=== PATIENT | female | born 1950 | race Caucasian/White ===

== ENCOUNTER 2019-07-14 12:50 | Outpatient (CLI) | payer MEDICARE, SELFPAY ==
--- NOTE | ~2019-07-14 | US_ITS ---
EXAMINATION: US renal BI EXAM DATE: 07/14/2019 13:33 INDICATION: Stage V chronic renal disease. TECHNIQUE: Multiple grayscale and Doppler images of the kidneys were obtained (by a technologist who performed the scan) and subsequently reviewed. Comparison is made to prior examination from 03/20/2016. FINDINGS: There is significant bilateral renal cortical thinning. Right kidney: There is normal contour and echogenicity. It measures 10.6 x 4.5 x 3.9 centimeters. T here are no focal renal lesions identified. There is no hydronephrosis. Left kidney: There is normal contour and echogenicity. It measures 10.7 x 4.8 x 4.3 centimeters. The re is a 9 mm cyst. There is no hydronephrosis. Bladder unremarkable. IMPRESSION: 1. Bilateral renal cortical thinning, atrophy. Reviewed, dictated and finalized at location A.
== END 2019-07-14 12:51 | disposition home or self-care (01) ==
LOC: ANHIMG 12:58
PROVIDERS: PCP Family Medicine; Visit Provider Internal Medicine Nephrology
DX: N18.5 Chronic kidney disease, stage 5 (principal); N26.1 Atrophy of kidney (terminal)
CPT/HCPCS: 76775

== ENCOUNTER → 2020-09-22 17:33 | Outpatient (CLI) | payer MEDICARE, SELFPAY ==
--- NOTE | ~2020-09-22 | DEXA_ITS ---
Bone Density Report Name: Peg Son Age: 69 Sex: Female Ethnicity: White Date of : 1950 Indication: postmenopausal; screening for osteoporosis; parental hip fracture; height loss; hysterectomy; Referring Provider: Latisha Weaver Study: Bone densitometry was performed. Exam Date: September 22, 2020 Accession number: [id number] Bone Density: Region BMD T-score Z-score Classification AP Spine (L1, L2, L3) 1.114 0.9 3.0 Normal Femoral Neck (Left) 0.552 -2.7 -0.8 Osteoporosis Total Hip (Left) 0.984 0.3 1.9 Normal Femoral Neck (Right) 0.548 -2.7 -0.8 Osteoporosis Total Hip (Right) 0.890 -0.4 1.2 Normal Total Hip Mean 0.937 -0.1 1.6 Normal World Health Organization criteria for BMD impression classify patients as: Normal (T-score at or above -1.0), Osteopenia (T-score between -1.0 and -2.5), or Osteoporosis (T-score at or below -2.5). 10-year Fracture Risk: FRAX not reported because: Some T-score for Spine Total or Hip Total or Femoral Neck at or below -2.5 Previous Exams: Region Exam Age BMD T-score BMD Change BMD Change Date g/cm2 vs Baseline vs Previous AP Spine(L1, L2, L3) 09/22/2020 69 1.114 0.9 -0.055 -0.055 01/28/2007 56 1.169 1.4 Total Hip(Left) 09/22/2020 69 0.984 0.3 -0.065 -0.085 03/17/2010 59 1.069 1.0 0.020 0.020 01/28/2007 56 1.049 0.9 Total Hip(Right) 09/22/2020 69 0.890 -0.4 -0.106 -0.091 03/17/2010 59 0.981 0.3 -0.015 -0.015 01/28/2007 56 0.996 0.4 *Denotes significance at 95% confidence level, LSC for AP Spine = 0.022 g/cm2, LSC for Total Hip = 0.027 g/cm2 Clinical Information Provided by Patient: Parent has had a hip fracture Has used the following medications: Vitamin D, Calcium Has the following medical conditions: Hysterectomy, COPD Patient maximum height was 68 Menopause Age: 53 No regular weight bearing exercise Onset of menses at age 12 Number of children 2 Impression: The patient has osteoporosis, based on the Left Femoral Neck T-score. The patient has risk factors, including: parental hip fracture. No significant bone loss was observed. Discussion: INCREASED RISK OF FRACTURE. BONE DENSITY IS UNDESIRABLY LOW AT ONE OR MORE SKELETAL SITES, CONSISTENT WITH POSTMENOPAUSAL OSTEOPOROSIS. This patient's lowest T-score meets the World Health Organization's (WHO) criteria for osteoporosis at one or m
== END ==
PROVIDERS: PCP Family Medicine; Visit Provider Physician Assistant
DX: M81.0 Age-related osteoporosis without current pathological fracture (principal)
CPT/HCPCS: 77080

== ENCOUNTER 2024-03-02 16:27 | Inpatient (IN) | payer MEDICARE, SELFPAY ==
--- NOTE | ~2024-03-02 | CT_ITS ---
EXAMINATION: CT cervical spine wo con DATE: 03/03/2024 15:08 INDICATION: Neck pain. TECHNIQUE: Computed tomography (CT) of the cervical spine was performed without intravenous contrast. Automated exposure control and iterative reconstruction technique were employed. The dose-length pro duct was 483.46 mGy-cm. COMPARISON: CT cervical spine 04/13/16 FINDINGS: There is 11 degrees levoscoliosis of cervical spine. There are changes of anterior fusion p rocedure from C4 to C7 with healed interbody bone graft and anterior plate and screws. Vertebral body heights are normal. There is mildly decreased disc height at C3-C4 and C7-T1. The following disc lev els are specifically discussed: C2-C3: There is no uncovertebral joint osteoarthritis. There is severe bilateral facet joint osteoart hritis. There is mild left neural foraminal stenosis. There is no central canal stenosis. C3-C4: There is severe bilateral uncovertebral joint osteoarthritis. There is severe bilateral facet joint osteoarthritis. There is mild bilateral neural foraminal stenosis. There is mild central canal stenosis. C4-C5: There is mild left uncovertebral joint hypertrophy. There is ankylosis of the facet joints wit h mild hypertrophy. There is mild left neural foraminal stenosis. There is no central canal stenosis. C5-C6: There is mild bilateral uncovertebral joint hypertrophy. There is ankylosis of left facet join t without hypertrophy. There is mild left neural foraminal stenosis. There is no central canal stenos is. C6-C7: There is moderate bilateral uncovertebral joint hypertrophy. There is mild bilateral facet kiko nt osteoarthritis. There is mild bilateral neural foraminal stenosis. There is no central canal steno sis. C7-T1: There is mild bilateral uncovertebral joint osteoarthritis. There is severe bilateral facet andrea int osteoarthritis. There is mild bilateral neural foraminal stenosis. There is no central canal sten osis. IMPRESSION: 1. Stable mild cervical spondylosis. 2. Anterior fusion procedure from C4 to C7. Reviewed, dictated and finalized at location A. [employer] COMMUNICATIONS MANAGER
--- NOTE | ~2024-03-02 | XR_ITS ---
EXAMINATION: XR chest 1V portable Exam Date/Time: 03/02/2024 17:32 DATA TECHNICIAN HISTORY: chest pain, shortness of breath Comparison: None. RESULT: Lines, tubes, and devices: ACDF hardware. Lungs and pleura: Mild diffuse reticular opacities. Streaky bibasilar opacities likely representing atelectasis. Cardiomediastinal silhouette: Stable. Other: No acute osseous or upper abdominal finding. IMPRESSION: Mild interstitial edema versus senescent/interstitial change. Reviewed, dictated and finalized at location K. TECHNICIAN
--- NOTE | ~2024-03-02 | CT_ITS ---
EXAMINATION: CT brain wo con DATE: 03/03/2024 15:08 INDICATION: Severe headache TECHNIQUE: Computed tomography (CT) of the head was performed without intravenous contrast. Sagittal and coronal reconstructions were performed. The mA was adjusted according to patient size. Iterative reconstruction technique was employed. The dose-length product was 605.33 mGy-cm. COMPARISON: head CT dated 04/13/2016 FINDINGS: No acute intracranial hemorrhage, acute infarction or abnormal extra axial fluid collection. There is mild scattered white matter hypoattenuation consistent with chronic small vessel ischemic disease. S ymmetric prominence of the sulci consistent with mild age-appropriate diffuse cerebral volume loss. Ventricles are normal and symmetric. No mass/mass effect. Changes of bilateral intraocular lens repla cement. The orbits, paranasal sinuses and mastoid air cells are normal. IMPRESSION: 1. Normal aging brain. No acute intracranial process. Reviewed, dictated and finalized at location A. RAFT ELECTRONICS TECHNICAL OFFICER
[2024-03-02 16:41] VITALS: BP 127/59; PULSE 76; RESP 19; O2SAT 94
[2024-03-02 17:02] VITALS: O2SAT 94
--- NOTE | 2024-03-02 17:08 | ECG_ITS ---
Test Date: 2024-03-02 18:21:11 Measurements Intervals Crosby Rate: 75 P: 80 NE: 201 QRS: -46 QRSD: 107 T: 29 QT: 333 QTc: 372 Interpretive Statements SINUS RHYTHM PATTERN CONSISTENT WITH PULMONARY DISEASE Poor R wave progression LEFT ANTERIOR FASCICULAR BLOCK [QRS AXIS <= -45, QR IN I, RS IN II] MODERATE VOLTAGE CRITERIA FOR LVH, CONSIDER NORMAL VARIANT [MEETS CRITERIA IN ONE OF: R(aVL), S(V1), R(V5), R(V5/V6)+S(V1)] No previous ECG available for comparison Electronically Signed On 03-02-2024 21:59:09 AIRLINE RADIO OPERATOR by Ed Peña M.D.
[2024-03-02 17:16] VITALS: BP 139/67; PULSE 76; RESP 21; O2SAT 94
--- NOTE | 2024-03-02 17:20 | ED.GENADULT ---
HPI - General Adult General Chief complaint: Chest Pain Stated complaint: SOB, CP Time Seen by Provider: 03/02/24 16:51 History of Present Illness HPI narrative: patient is a 73-year-old female who presents emergency department chief complaint of generalized malaise. Patient reports having chest pain reports he has had a cough and starts been feeling he is well patient today was unable to get up off the toilet and the family called EMS. The patient had a home COVID test that was positive Related Data Home Medications ?Medication ?Instructions ?Recorded ?Confirmed ?Last Taken ?Type calcium carbonate (Tums) 200 mg PO DAILY 06/05/22 02/27/24 Unknown History cholecalciferol (vitamin D3) 50 50 mcg PO DAILY 06/05/22 02/27/24 Unknown History mcg (2,000 unit) capsule fexofenadine 60 mg tablet (Antonina 60 mg PO DAILY 06/05/22 02/27/24 Unknown History Allergy) qoucshuhvwaq-vslteyhd-hkweihn-folic 1 tablet PO DAILY 06/05/22 02/27/24 Unknown History acid 400 mcg-vit K1 20 mcg tablet (One-A-Day Women's 50 Plus) B6 1.7 mg-folic 400 mcg-B12 2.4 1 cap PO DAILY 01/01/23 02/27/24 Unknown History phn-juymgb-peqapvmftxej oral capsule (Neuriva Plus Brain Performance) Allergies Allergy/AdvReac Type Severity Reaction Status Date / Time dobutamine Allergy Intermediate SEVERE Verified 03/02/24 18:37 PAIN IN THE HEAD latex Allergy Intermediate RASH Verified 03/02/24 18:37 aspirin Allergy Mild CHOKING Verified 03/02/24 18:37 FEELING , CHEST TIGHTNESS Sulfa (Sulfonamide Allergy Mild HIVES Verified 03/02/24 18:37 Antibiotics) peanut Allergy Unknown THROAT Verified 03/02/24 18:37 SWELLING Review of Systems Review of Systems: A 10 system review of systems was completed on the patient and is negative except for what is stated in the HPI. Nursing and ancillary documentation was reviewed. [facility] Past Medical History Medical History Dependence on supplemental oxygen Chronic obstructive pulmonary disease, unspecified Unspecified cirrhosis of liver Vitamin D deficiency, unspecified Pure hypercholesterolemia, unspecified Age-related osteoporosis without current pathological fracture Osteoarthritis of knees, bilateral Allergic rhinitis, unspecified Personal history of other endocrine, nutritional and metabolic disease Gastro-esophageal reflux disease without esophagitis Migraine, unspecified, not intractable, with status migrainosus Atherosclerosis of aorta Morbid obesity Essential tremor Primary generalized (osteo)arthritis Fibromyalgia Major depressive disorder, recurrent, in partial remission Hyperlipidemia, unspecified Hypothyroidism, unspecified Coagulation defect, unspecified Hepatic steatosis Hypocalcemia Hypokalemia Chronic kidney disease, stage 4 (severe) Other intervertebral disc degeneration, lumbar region Social History Social History Smoking status: Former smoker Tobacco type: cigarettes Second hand tobacco smoke exposure: No Alcohol intake: never Substance use: never Substance use type: does not use Do You Feel Safe in your Home?: Yes Lack of Transportation: No Lack of Food: Never True Current Housing: I Have Housing Concerned About Future Housing: No Difficulty Paying Gas/Electric Bills: No Difficulty Paying for Meds: No Currently Unemployed: YES Education: High School Diploma/GED Difficulty w/ Childcare or Family Care: No Living arrangements: with family Occupation/Education: unemployed Gender identity (if verbalized by the patient): Female Sexual Orientation (if Verbalized by the Patient): Straight or Heterosexual Spiritual care concerns: No Exam Narrative: GENERAL: Well-appearing, well-nourished, and in no acute distress. HEAD: Normocephalic, atraumatic. EYES: PERRLA and EOMI. ENT: Nares clear, no rhinorrhea or epistaxis. Mucous membranes moist. NECK: Supple. CHEST: Clear to auscultation. No respiratory distress. HEART: Regular rate and rhythm. No murmur heard. Normal peripheral pulses. ABDOMEN: Soft, nontender, nondistended, normal active bowel sounds. EXTREMITIES: Normal range of motion. No edema. SKIN: Warm, dry, no rash. NEURO: No focal deficits. Alert and oriented x3. PSYCH: Normal mood and affect. Course Vital Signs Vital signs: Vital Signs Pulse Rate 76 03/02/24 16:41 Respiratory Rate 19 03/02/24 16:41 Blood Pressure 127/59 L 03/02/24 16:41 Pulse Oximetry 94 03/02/24 16:41 Oxygen Delivery Nasal Cannula 03/02/24 16:41 Oxygen Flow Rate 2.5 03/02/24 16:41 Temperature 37.6 C 03/02/24 18:04 Pulse Rate 75 03/02/24 18:04 Respiratory Rate 23 H 03/02/24 18:04 Blood Pressure 134/66 03/02/24 18:04 Pulse Oximetry 93 03/02/24 18:04 Oxygen Delivery Nasal Cannula 03/02/24 17:02 Oxygen Flow Rate 2.5 03/02/24 17:02 Medical Decision Making MDM Narrative Medical decision making narrative: differential diagnosis includes pneumonia, ACS, COVID-19, upper respiratory infection, UTI, electrolyte abnormality, dehydration laboratory studies were obtained on the patient showed a white count of 3.5 electrolytes showed a BUN of 29 and a creatinine of 2.2 lactic acid was 0.9 troponin is less than 0.012 BNP was 925 procalcitonin 0.2 COVID was positive influenza and RSV were negative chest x-ray showed Mild interstitial edema versus senescent/interstitial change. Vital Signs Vital Signs: Vital Signs Pulse Rate 76 03/02/24 16:41 Respiratory Rate 19 03/02/24 16:41 Blood Pressure 127/59 L 03/02/24 16:41 Pulse Oximetry 94 03/02/24 16:41 Oxygen Delivery Nasal Cannula 03/02/24 16:41 Oxygen Flow Rate 2.5 03/02/24 16:41 Temperature 37.6 C 03/02/24 18:04 Pulse Rate 75 03/02/24 18:04 Respiratory Rate 23 H 03/02/24 18:04 Blood Pressure 134/66 03/02/24 18:04 Pulse Oximetry 93 03/02/24 18:04 Oxygen Delivery Nasal Cannula 03/02/24 17:02 Oxygen Flow Rate 2.5 03/02/24 17:02 Lab Data 03/02/24 17:31 03/02/24 17:31 Labs: Lab Results 03/02/24 Range/Units 17:31 WBC 3.5 L (4.5-10.0) K/mm3 RBC 4.72 (4.2-5.4) M/mm3 Hgb 14.8 (12.0-15.0) g/dL Hct 45.8 (37.0-47.0) % MCV 97.0 (80-100) fl MCH 31.4 (26-34) pg MCHC 32.3 (32-36) g/dl RDW 14.5 (11.5-14.5) % Plt Count 127 L (150-375) k/mm3 MPV 10.8 H (7.4-10.4) fl Immature Gran % (Auto) Not Reportable Neut % (Auto) Not Reportable Lymph % (Auto) Not Reportable Hitchcock % (Auto) Not Reportable Eos % (Auto) Not Reportable Baso % (Auto) Not Reportable Lymph # (Auto) Not Reportable Hitchcock # (Auto) Not Reportable Eos # (Auto) Not Reportable Baso # (Auto) Not Reportable Abs Immat Gran (auto) Not Reportable Absolute Neuts (auto) Not Reportable Absolute Nucleated RBC Not Reportable Total Counted 100 Neutrophils % (Manual) 66 (46-73) % Lymphocytes % (Manual) 21.0 (18-44) % Monocytes % (Manual) 13 H (3-9) % Nucleated RBC % Not Reportable Abs Lymphs (Manual) 0.73 L (1.1-4.5) K/mm3 Abs Monocytes (Manual) 0.45 (0.1-0.90) K/mm3 Atypical Lymphocytes Present Smudge Cells Few Platelet Estimate Decreased (Adequate) Clumped Platelets Present Large Platelets Present % Immature Plt Fraction 4.1 (0.9-11.2) % Anisocytosis 1+ Stomatocytes 1+ Schistocytes None seen PT 13.7 (11.1-14.7) Seconds INR 1.0 APTT 34.0 (22.3-36.8) Seconds Sodium 135 L (137-145) mmol/L Potassium 4.8 (3.4-5.0) mmol/L Chloride 99 (98-107) mmol/L Carbon Dioxide 35 H (22-30) mmol/L Anion Gap 1 L (4-12) mmol/L BUN 29 H (7-17) mg/dL Creatinine 2.20 H (0.7-1.0) mg/dL Estim Creat Clear Calc 30 ml/min Estimated GFR 22 L (59 - ) Glucose 75 (65-110) mg/dL Lactic Acid 0.9 (0.7-2.0) mmol/L Calcium 10.6 H (8.4-10.2) mg/dL Magnesium 2.1 (1.6-2.3) mg/dL Total Bilirubin 0.6 (0.2-1.3) mg/dL AST 32 (14-36) U/L ALT 21 (6-35) U/L Alkaline Phosphatase 81 (38-126) U/L Troponin I < 0.012 (0.000-0.034) ng/mL NT-Pro-B Natriuret Pep 925 H (19.9-100) pg/mL Total Protein 7.0 (6.3-8.2) g/dL Albumin 3.9 (3.5-5.1) g/dL Procalcitonin 0.2 ng/mL Influenza A (RT-PCR) Negative (Negative) Influenza B (RT-PCR) Negative (Negative) RSV (RT-PCR) Negative (Negative) SARS-CoV-2 RNA (RT-PCR) Positive A (Negative) Discharge Plan Discharge Clinical Impression: COVID-19, Generalized weakness Patient Disposition: Still a Patient Condition: Stable Patient Language: Kenyan Prescriptions: No Action cholecalciferol (vitamin D3) 50 mcg (2,000 unit) capsule 50 mcg PO DAILY One-A-Day Women's 50 Plus 400-20 mcg tablet 1 tablet PO DAILY fexofenadine [Antonina Allergy] 60 mg tablet 60 mg PO DAILY Rx Instructions: 1/2 tablet BID calcium carbonate [Tums] 200 mg calcium (500 mg) tablet,chewable 200 mg PO DAILY triamcinolone acetonide 40 mg/mL suspension 40 mg intra-articular ONCE Qty: 1 0RF Neuriva Plus Brain Performance 1.7 mg-400 mcg- 2.4 mcg capsule 1 cap PO DAILY levothyroxine 200 mcg tablet 200 mcg PO DAILY Qty: 100 1RF calcitriol 0.25 mcg capsule 0.25 mcg PO 3XW Qty: 45 3RF Rx Instructions: administer after dialysis on dialysis days -W-FR propranolol 60 mg tablet 60 mg PO Q12H Qty: 180 1RF rosuvastatin 20 mg tablet 20 mg PO DAILY Qty: 90 1RF primidone 50 mg tablet 50 mg PO BID Qty: 180 1RF spironolactone 50 mg tablet 50 mg PO DAILY Qty: 90 1RF pregabalin 200 mg capsule 200 mg PO BID Qty: 180 0RF duloxetine 60 mg capsule,delayed release(DR/EC) 60 mg PO DAILY Qty: 90 1RF hydrocodone-acetaminophen 5-325 mg tablet 1 tablet PO Q6H PRN (Reason: pain) Qty: 120 0RF furosemide 40 mg tablet 40 mg PO QAM Qty: 90 1RF Follow-up/Referrals: Gaudencio Miranda MD [Primary Care Provider] - Time of Disposition: 19:03
[2024-03-02 17:39] LABS: Hematocrit 45.8 % (37.0-47.0); Hemoglobin 14.8 g/dL (12.0-15.0); Immature Platelet Fraction Pct 4.1 % (0.9-11.2); Mean Corpuscular HGB Conc 32.3 g/dl (32-36); Mean Corpuscular Hemoglobin 31.4 pg (26-34); Mean Platelet Volume 10.8 fl (7.4-10.4); Platelet Count Result 127 k/mm3 (150-375); Red Blood Count 4.72 M/mm3 (4.2-5.4); Red Cell Distribution Width 14.5 % (11.5-14.5); White Blood Count 3.5 K/mm3 (4.5-10.0)
[2024-03-02 17:48] LABS: Alanine Aminotransferase 21 U/L (6-35); Albumin Level 3.9 g/dL (3.5-5.1); Alkaline Phosphatase 81 U/L (38-126); Anion Gap 1 mmol/L (4-12); Aspartate Amino Transferase 32 U/L (14-36); Bilirubin,Total 0.6 mg/dL (0.2-1.3); Blood Urea Nitrogen 29 mg/dL (7-17); Calcium 10.6 mg/dL (8.4-10.2); Carbon Dioxide 35 mmol/L (22-30); Chloride 99 mmol/L (98-107); Estimated CRCL calculation 30 ml/min; Estimated Glomerular Filt Rate 22; Glucose 75 mg/dL (65-110); Magnesium 2.1 mg/dL (1.6-2.3); Potassium 4.8 mmol/L (3.4-5.0); Sodium 135 mmol/L (137-145)
[2024-03-02 17:49] LABS: Lactic Acid Reflex 0.9 mmol/L (0.7-2.0)
[2024-03-02 17:55] LABS: Prothrombin Time 13.7 Seconds (11.1-14.7)
[2024-03-02 18:00] LABS: NT Pro B Type Natriuretic Pept 925 pg/mL (19.9-100); Troponin I < 0.012 ng/mL (0.000-0.034)
[2024-03-02 18:04] VITALS: BP 134/66; PULSE 75; RESP 23; TEMP 37.6; O2SAT 93
[2024-03-02 18:10] LABS: Lymphocytes Absolute Manual 0.73 K/mm3 (1.1-4.5); Monocytes Absolute Manual 0.45 K/mm3 (0.1-0.90); Monocytes Percent Manual 13 % (3-9); Neutrophils Percent Manual 66 % (46-73); Platelet Estimate Decreased (Adequate); Total Cells Counted 100
[2024-03-02 18:11] LABS: Anisocytosis 1+; Atypical Lymphocytes Present; Large Platelets Present; Platelet Clumps Present; Schistocytes None Seen; Smudge Cells FEW; Stomatocytes 1+
[2024-03-02 18:14] LABS: Influenza A QL RT-PCR Negative (Negative); Influenza B QL RT-PCR Negative (Negative); RSV RNA, RT-PCR Negative (Negative); SARS-CoV-2 RNA PCR Positive (Negative)
[2024-03-02 18:18] LABS: Procalcitonin 0.2 ng/mL
[2024-03-02] MEDS: HYDROcodone/acetaminophen (*CRX) 5-325 MG TABLET 1 TAB PO (19:03)
[2024-03-02] MEDS: ACETAMINOPHEN 325 MG TABLET 650 MG PO (19:04)
[2024-03-02 19:18] LABS: Add Urine Microscopic? NO; Appearance Urine Clear (Clear); Bilirubin Urine Negative (Negative); Blood Urine Negative (Negative); Color Urine Yellow (Yellow); Glucose Urine UA Negative (Negative); Ketones Urine Negative (Negative); Leukocyte Esterase Ur Negative LEU/UL (Negative); Nitrate Urine Negative (Negative); Protein Urine Negative (Negative); Specific Grav Ur 1.007 (1.001-1.035); Urobilinogen Urine 0.2 mg/dL (<2.0); pH Urine 6.5 (5.0-9.0)
--- NOTE | 2024-03-02 19:40 | PC.NURSE ---
Admission report to [facility].
[2024-03-02 20:00] VITALS: O2SAT 97
[2024-03-02 20:05] VITALS: BP 140/82; PULSE 87; RESP 18; TEMP 36.1; O2SAT 98; BMI 42.3
--- NOTE | 2024-03-02 20:44 | ADMGEN ---
This patient, Peg Son, was admitted to 2 Medical Room 257-01. Patient/family oriented to hospital policies and general routines including ID bracelet, bed and alarms, visiting hours, pain management, procedures, bathroom and other care routines, personal items, smoking policy, room service/diet, and visiting hours. Information on how to activate the Rapid Response Team has been discussed. Patient/Family are encouraged to report perceived risks to care and to ask questions if they do not understand what they are told or what they should do.
[2024-03-02 20:52] LABS: Troponin I < 0.012 ng/mL (0.000-0.034)
--- NOTE | 2024-03-02 21:20 | PM.IMHP ---
H&P: HPI History of Present Illness Date/Time: 03/02/24 21:20 Chief Complaint: Weakness. Narrative: This is a 73-year-old female with chronic hypoxic respiratory failure on home oxygen, chronic obstructive pulmonary disease, chronic kidney disease stage 4, hyperlipidemia, arthritis, hypothyroidism, and other comorbidities who presented to the emergency department via EMS from home for evaluation of weakness. The patient provides the following history. She has limited mobility at baseline due to bone on bone arthritis in her right knee and according to her daughter she really only leaves her bedroom to go to the bathroom and back. The last several days she has been feeling increasingly weak from baseline and today she was so weak that she could not even get herself up off of the toilet. She also also reports generalized malaise, body aches, headache, sore throat, and cough which is occasionally productive of yellow sputum. Her appetite has been okay and she denies nausea, vomiting, and diarrhea. She also denies fever, chills, sweats, neck pain, dysuria, exertional chest pain, and pleuritic pain. In the ED: She was afebrile on arrival with stable blood pressures. Labs are significant for WBC count of 3.5, platelets 127, sodium 135, carbon dioxide 35, BUN 29, creatinine 2.20, lactic acid 0.9, calcium 10.6, proBNP 925, troponin less than 0.012, procalcitonin 0.2. Urinalysis was unremarkable. SARS-CoV-2 by PCR was positive. Chest x-ray showed mild interstitial edema versus stents and an/interstitial changes. She was too weak to even sit herself up in bed and she is being admitted in this setting. Review of Systems Review of Systems: 12 systems were reviewed and are negative except for as per HPI. [facility] Past Medical History Medical History (Updated 03/02/24 @ 21:27 by May Peralta PA-C) Secondary hyperparathyroidism, not elsewhere classified Chronic obstructive pulmonary disease Chronic respiratory failure with hypoxia, on home oxygen therapy Unspecified cirrhosis of liver Vitamin D deficiency, unspecified Pure hypercholesterolemia, unspecified Age-related osteoporosis without current pathological fracture Osteoarthritis of knees, bilateral Allergic rhinitis, unspecified Gastro-esophageal reflux disease without esophagitis Migraine, unspecified, not intractable, with status migrainosus Atherosclerosis of aorta Morbid obesity Essential tremor Primary generalized (osteo)arthritis Fibromyalgia Major depressive disorder, recurrent, in partial remission Hyperlipidemia, unspecified Hypothyroidism, unspecified Coagulation defect, unspecified Hepatic steatosis Chronic kidney disease, stage 4 (severe) Other intervertebral disc degeneration, lumbar region Surgical History Surgical History (Updated 03/02/24 @ 21:27 by May Peralta PA-C) History of partial hysterectomy History of cervical spinal surgery Family History Family History Father Cancer Sibling Cancer Heart attack Social History Social History (Updated 03/02/24 @ 21:27 by May Peralta PA-C) Social History: Healthcare power of ip attorney: Arin Rahman, daughter. Code status: Full code. Smoking packs per day: 2 Smoking cigarettes per day: 40.0 Years smoked: 50 Smoking pack-years: 100.00 Smoking status: Former smoker Tobacco type: cigarettes Second hand tobacco smoke exposure: No Alcohol intake: never Substance use: never Substance use type: does not use Do You Feel Safe in your Home?: Yes Lack of Transportation: No Lack of Food: Never True Current Housing: I Have Housing Concerned About Future Housing: No Difficulty Paying Gas/Electric Bills: No Difficulty Paying for Meds: No Currently Unemployed: YES Education: High School Diploma/GED Difficulty w/ Childcare or Family Care: No Living arrangements: with family Occupation/Education: unemployed Spiritual care concerns: No Meds Home Medications and Allergies Home Medications ?Medication ?Instructions ?Recorded ?Confirmed ?Type calcium carbonate (Tums) 200 mg PO DAILY 06/05/22 03/02/24 History cholecalciferol (vitamin D3) 50 50 mcg PO DAILY 06/05/22 03/02/24 History mcg (2,000 unit) capsule fexofenadine 60 mg tablet (Antonina 60 mg PO DAILY 06/05/22 03/02/24 History Allergy) enkcveqsqxnr-deltenay-ukbeypz-folic 1 tablet PO DAILY 06/05/22 03/02/24 History acid 400 mcg-vit K1 20 mcg tablet (One-A-Day Women's 50 Plus) B6 1.7 mg-folic 400 mcg-B12 2.4 1 cap PO DAILY 01/01/23 03/02/24 History kbc-mkndqg-puqotxunmivz oral capsule (Neuriva Plus Brain Performance) calcitriol 0.25 mcg capsule 0.25 mcg PO 3XW #45 caps 08/14/23 03/02/24 Rx primidone 50 mg tablet 50 mg PO BID #180 tabs 11/05/23 03/02/24 Rx propranolol 60 mg tablet 60 mg PO Q12H #180 tabs 11/05/23 03/02/24 Rx rosuvastatin 20 mg tablet 20 mg PO DAILY #90 tabs 11/05/23 03/02/24 Rx spironolactone 50 mg tablet 50 mg PO DAILY #90 tabs 11/19/23 03/02/24 Rx pregabalin 200 mg capsule 200 mg PO BID #180 caps 12/05/23 03/02/24 Rx duloxetine 60 mg capsule,delayed 60 mg PO DAILY #90 caps 12/27/23 03/02/24 Rx release hydrocodone 5 mg-acetaminophen 325 1 tablet PO Q6H PRN pain #120 tabs 02/13/24 03/02/24 Rx mg tablet furosemide 40 mg tablet 40 mg PO QAM #90 tabs 02/21/24 03/02/24 Rx levothyroxine 200 mcg tablet 200 mcg PO DAILY #100 tabs 02/27/24 03/02/24 Rx Allergies Allergy/AdvReac Type Severity Reaction Status Date / Time dobutamine Allergy Intermediate SEVERE Verified 03/02/24 19:24 PAIN IN THE HEAD latex Allergy Intermediate RASH Verified 03/02/24 19:24 aspirin Allergy Mild CHOKING Verified 03/02/24 19:24 FEELING , CHEST TIGHTNESS Sulfa (Sulfonamide Allergy Mild HIVES Verified 03/02/24 19:24 Antibiotics) peanut Allergy Unknown THROAT Verified 03/02/24 19:24 SWELLING Vital Signs Vital Signs - 24 hr 03/02/24 16:41 03/02/24 17:02 03/02/24 17:16 Temperature Pulse Rate 76 76 Respiratory Rate 19 21 H Blood Pressure 127/59 L 139/67 Pulse Oximetry 94 94 94 Oxygen Delivery Nasal Cannula Nasal Cannula Oxygen Flow Rate 2.5 2.5 03/02/24 18:04 Temperature 99.6 F Pulse Rate 75 Respiratory Rate 23 H Blood Pressure 134/66 Pulse Oximetry 93 Oxygen Delivery Oxygen Flow Rate Exam Narrative: General: Chronically ill-appearing female supine in bed. Weight: 130 kg. BMI: 41.1. HEENT: PERRL, EOMI. Sclera anicteric. Tacky mucous membranes. Oropharynx is crowded. Neck: Supple. Exam limited due to neck circumference. No obvious JVD or, lymphadenopathy, or thyromegaly. Respiratory: Respirations are nonlabored. She is currently on 2.5 L nasal cannula. Lung sounds are diminished throughout with occasional expiratory wheezing. Cardiovascular: Regular rate and rhythm with S1-S2. Gastrointestinal: Abdomen is soft, obese, nontender, and nondistended with positive bowel sounds. Skin: Warm and dry. Extremities: No cyanosis, clubbing, or significant edema. Radial and pedal pulses intact. Neurological: Alert and oriented. Cranial nerves 2-12 are grossly intact. Generalized weakness without gross focal findings. Psychiatric: Cooperative with appropriate mood and flat affect. H&P: Results Labs Labs: Short CBC 03/02/24 Range/Units 17:31 WBC 3.5 L (4.5-10.0) K/mm3 Hgb 14.8 (12.0-15.0) g/dL Hct 45.8 (37.0-47.0) % Plt Count 127 L (150-375) k/mm3 BMP 03/02/24 17:31 Sodium 135 L Potassium 4.8 Chloride 99 Carbon Dioxide 35 H BUN 29 H Creatinine 2.20 H Glucose 75 Calcium 10.6 H Cardiac Enzymes 03/02/24 03/02/24 Range/Units 17:31 20:23 Troponin I < 0.012 < 0.012 (0.000-0.034) ng/mL Liver Function 03/02/24 Range/Units 17:31 Total Bilirubin 0.6 (0.2-1.3) mg/dL AST 32 (14-36) U/L ALT 21 (6-35) U/L Alkaline Phosphatase 81 (38-126) U/L Albumin 3.9 (3.5-5.1) g/dL Urine 03/02/24 Range/Units 19:01 Urine Color Yellow (Yellow) Urine Appearance Clear (Clear) Urine pH 6.5 (5.0-9.0) Ur Specific [place] 1.007 (1.001-1.035) Urine Protein Negative (Negative) mg/dL Urine Glucose (UA) Negative (Negative) mg/dL Covid Lab Results 03/02/24 17:31 SARS-CoV-2 RNA (RT-PCR) Positive A (Negative) Imaging Chest X-Ray 03/02/24 17:44 IMPRESSION: Mild interstitial edema versus senescent/interstitial change. Assessment and Plan Assessment and plan (1) COVID-19: Code(s): U07.1 - COVID-19 Status: Acute (2) Generalized weakness: Code(s): R53.1 - Weakness Status: Acute (3) Chronic respiratory failure with hypoxia, on home oxygen therapy: Code(s): J96.11 - Chronic respiratory failure with hypoxia; Z99.81 - Dependence on supplemental oxygen Status: Acute (4) Chronic obstructive pulmonary disease: Code(s): J44.9 - Chronic obstructive pulmonary disease, unspecified Status: Acute (5) Chronic kidney disease, stage 4 (severe): Code(s): N18.4 - Chronic kidney disease, stage 4 (severe) Status: Acute (6) Hypothyroidism, unspecified: Qualifiers: Hypothyroidism type: unspecified Qualified Code(s): E03.9 - Hypothyroidism, unspecified Code(s): E03.9 - Hypothyroidism, unspecified Status: Acute (7) Hyperlipidemia, unspecified: Qualifiers: Hyperlipidemia type: mixed hyperlipidemia Qualified Code(s): E78.2 - Mixed hyperlipidemia Code(s): E78.5 - Hyperlipidemia, unspecified Status: Acute Plan The patient presented to the emergency department for evaluation of weakness in addition to upper respiratory type symptoms as detailed in HPI. Labs, imaging, EKG, and all reports were personally reviewed. She is positive for SARS-CoV-2 by PCR and has been started on remdesivir and dexamethasone. Continue scheduled bronchodilators. She is currently at her baseline oxygen requirements. She has limited mobility at baseline and unfortunately it has not taken much for her to become extremely weak, to the point where she is not able to be discharged home safely as she is a fall risk at this time. Initiate fall precautions. She will need PT/OT when she is feeling better. Rehab is a possibility although daughter has been speaking with her parents about assisted living. Renal function is stable on review of previous labs. Her home medications will be reviewed and resumed as appropriate. Findings and treatment plan were discussed with the patient. Questions were solicited and answered to satisfaction. The patient's medical management will be taken over by the hospitalist team in a.m. Quality VTE Prophylaxis VTE prophylaxis: pharmacologic ordered The patient has been admitted under observation status. Hospitalist [facility] Advance Care Plan I have confirmed that the patient's Advanced Care Plan is present, code status is documented, or surrogate decision maker is listed in patient medical record.: Yes Medication Reconciliation I have utilized all available resources to obtain, update and review the patients current medications (includes all prescriptions, OTC, herbals, cannabis, and nutritional supplements).: Yes
[2024-03-03] VITALS (10 sets, daily range): BP systolic 116–150; BP diastolic 57–63; PULSE 67–87; RESP 18–20; TEMP 36.2–37.1; O2SAT 91–96
[2024-03-03] MEDS: REMDESIVIR 200 MG/NS 250 ML 200 MG/250 ML BAG 250 MG IVPB (00:08)
[2024-03-03] MEDS: PROPRANOLOL HCL 60 MG CAPSULE CR PO ×3 (00:10→21:22)
[2024-03-03 06:04] LABS: Hematocrit 47.1 % (37.0-47.0); Hemoglobin 14.7 g/dL (12.0-15.0); Mean Corpuscular HGB Conc 31.2 g/dl (32-36); Mean Corpuscular Hemoglobin 31.1 pg (26-34); Mean Corpuscular Volume 99.8 fl (80-100); Mean Platelet Volume 10.8 fl (7.4-10.4); Platelet Count Result 106 k/mm3 (150-375); Red Blood Count 4.72 M/mm3 (4.2-5.4); Red Cell Distribution Width 14.5 % (11.5-14.5); White Blood Count 3.3 K/mm3 (4.5-10.0)
[2024-03-03 06:26] LABS: Anion Gap 6 mmol/L (4-12); Blood Urea Nitrogen 28 mg/dL (7-17); CRP 2.6 mg/dL (<1.0); Calcium 10.3 mg/dL (8.4-10.2); Carbon Dioxide 31 mmol/L (22-30); Chloride 100 mmol/L (98-107); Estimated CRCL calculation 30 ml/min; Estimated Glomerular Filt Rate 24; Glucose 78 mg/dL (65-110); Lactate Dehydrogenase 232 U/L (120-246); Magnesium 2.2 mg/dL (1.6-2.3); Potassium 4.1 mmol/L (3.4-5.0); Sodium 137 mmol/L (137-145)
[2024-03-03] MEDS: LEVOTHYROXINE SODIUM 100 MCG TABLET 200 MCG PO (06:48)
--- NOTE | 2024-03-03 06:53 | P.PNIM_ITS ---
Progress Note: A&P Assessment and Plan (1) Generalized weakness: Code(s): R53.1 - Weakness Status: Acute Assessment and Plan: Limited mobility at baseline due to bone on bone arthritis in her right knee and according to her daughter she really only leaves her bedroom to go to the bathroom and back. The last several days she has been feeling increasingly weak from baseline and she was so weak prior to admission that she could not even get herself up off of the toilet. - Viral panel: Covid positive - UA unremarkable - Chest XR: Mild interstitial edema versus senescent/interstitial change. - PT/OT (2) COVID-19: Code(s): U07.1 - COVID-19 Status: Acute Assessment and Plan: Reports weakness, generalized malaise, body aches, headache, sore throat, and cough which is occasionally productive of yellow sputum. - Viral panel: Covid positive - Chest XR: Mild interstitial edema versus senescent/interstitial change. - Pt is a candidate for Remdesivir and Dexamethasone, continue treatment according to suggested guidelines. Remdesivir 200 mg IV x1, then 100 mg IV x4 days, dexamethasone 6 mg IV daily x 10 days, or until discharge - Bronchodilators - Currently on her baseline oxygen supplementation of 2L NC. Oxygen via NC; wean as tolerated. Keep spO2 greater than 91% - Place in COVID19 isolation precautions, cardiac monitoring, and continuous pulse ox - Monitor serum electrolytes, CRP, Lactic acid, troponin, CBC, WBC, temperature curve and follow cultures (3) Headache: Code(s): R51.9 - Headache, unspecified Status: Acute Assessment and Plan: Patient endorsing a headache that worsens with neck movement. She states that she has had falls in the past, unable to state when her most recent fall was. Not on any anticoagulation. Neuro exam negative. - Head CT ordered - C spine CT ordered - analgesics (4) Chronic respiratory failure with hypoxia, on home oxygen therapy: Code(s): J96.11 - Chronic respiratory failure with hypoxia; Z99.81 - Dependence on supplemental oxygen Status: Acute Assessment and Plan: Remains on baseline 2 L NC. (5) Chronic obstructive pulmonary disease: Code(s): J44.9 - Chronic obstructive pulmonary disease, unspecified Status: Acute Assessment and Plan: Chronic, does not appear in acute exacerbation. - Monitor (6) Chronic kidney disease, stage 4 (severe): Code(s): N18.4 - Chronic kidney disease, stage 4 (severe) Status: Acute Assessment and Plan: Follows with nephrology, Dr. Penaloza. Last seen 12/17/23. AV shunt placement was attempted for possible dialysis, however thish failed. - BUN/Cr 28/2.0 on am labs - Continue to monitor renal function - Avoid nephrotoxic medications - Renally dose medications (7) Hypothyroidism, unspecified: Qualifiers: Hypothyroidism type: unspecified Qualified Code(s): E03.9 - Hypothyroidism, unspecified Code(s): E03.9 - Hypothyroidism, unspecified Status: Acute Assessment and Plan: Chronic, continue home medications - Synthroid 200 mg daily, dose last adjusted on 02/26 by PCP (8) Hypertension: Code(s): I10 - Essential (primary) hypertension Status: Acute Assessment and Plan: Chronic, continue home medications - propranolol 60 mg daily - lasix 40 mg daily - spironolactone 50 mg daily - monitor (9) Hyperlipidemia, unspecified: Qualifiers: Hyperlipidemia type: mixed hyperlipidemia Qualified Code(s): E78.2 - M ixed hyperlipidemia Code(s): E78.5 - Hyperlipidemia, unspecified Status: Acute Assessment and Plan: Chronic, continue home medications - rosuvastatin 20 mg daily Time Spent With Patient Time with patient: 25 - 35 minutes Subjective Date/time seen: 03/03/24 06:53 Interval history: 73-year-old female with chronic hypoxic respiratory failure on home oxygen, chronic obstructive pulmonary disease, chronic kidney disease stage 4, hypertension, hyperlipidemia, arthritis, hypothyroidism, and other comorbidities who presented to the emergency department via EMS from home for evaluation of weakness. Patient is pleasant sitting up in her bed. She endorses a severe headache that worsens with moving her head and is further exacerbated by the lights. She has a history of migraines but has not had one in many years she says. She does note that she has had falls in the past, unable to state when most recent fall was. She has no other complaints denying chest pain, shortness of breath, palpiations, nausea/vomiting and abdominal pain. 1620: Returned to patients room and she is sleeping in her chair. Per patients RN he asked if she needed any pain medications recently and she denied. Head and neck CT are pending. Review of Systems Review of Systems: All systems reviewed & are unremarkable except as noted in HPI and below Exam Narrative: AF HR 79 RR 18 SpO2 91 2L NC (baseline) BP 116/63 General: female in no acute respiratory distress who is nontoxic appearing, lying semi recumbent in bed. HEENT: Normocephalic. Atraumatic. Extraocular movement intact. Sclera clear and anicteric. No facial asymmetry. Chest: Lungs are clear to auscultation bilaterally. No wheezes or crackles. CV: Heart was regular rate and rhythm. S1-S2. No murmurs, gallops, or rubs. Abd: Abdomen was soft. Nontender. Nondistended. Positive bowel sounds. No organomegaly or masses. Ext: No clubbing, cyanosis, or edema. 2+ DP pulses bilaterally. Neuro: Patient is alert and oriented x4. Strength is 5/5 in both upper and lower extremities. Cranial nerves 2-12 are intact. Speech is clear. Objective Data Vital Signs Vital Signs: Vital Signs - 24 hr 03/02/24 16:41 03/02/24 17:02 03/02/24 17:16 Temperature Pulse Rate 76 76 Respiratory Rate 19 21 H Blood Pressure 127/59 L 139/67 Pulse Oximetry 94 94 94 Oxygen Delivery Nasal Cannula Nasal Cannula Oxygen Flow Rate 2.5 2.5 03/02/24 18:04 03/02/24 20:05 03/03/24 00:10 Temperature 99.6 F 97 F L Pulse Rate 75 87 87 Respiratory Rate 23 H 18 Blood Pressure 134/66 140/82 Pulse Oximetry 93 98 Oxygen Delivery Oxygen Flow Rate 03/03/24 06:00 Temperature 97.2 F L Pulse Rate 67 Respiratory Rate 20 Blood Pressure 150/57 H Pulse Oximetry 92 Oxygen Delivery Oxygen Flow Rate Intake/Output Intake/Output: Intake & Output 02/29/24 03/01/24 03/02/24 03/03/24 23:59 23:59 23:59 23:59 Intake Total 200 Output Total 300 Balance -100 Meds/Results Medications: Active Medications Generic Name Dose Route Start Last Admin Trade Name Freq PRN Reason Stop Dose Admin Acetaminophen 650 mg 03/02/24 18:39 03/02/24 19:04 Acetaminophen 325 Mg Tablet PO 650 mg Q4H PRN Administration Mild Pain (1-3) or Fever Hydrocodone Bitart/Acetaminophen 1 tab 03/02/24 18:39 03/02/24 19:03 Hydrocodone/Acetaminophen (*Crx) 5-325 Mg Tablet PO 1 tab Q4H PRN Administration Pain Rated 4-6 Calcitriol 0.25 mcg 03/02/24 20:00 Calcitriol 0.25 Mcg Capsule PO MoWeFr PRN AFTER DIALYSIS Calcium Carbonate 200 mg 03/03/24 09:00 Calcium Carbonate (Tums) 500 Mg (200 Mg Elemental) PO DAILY [facility] Dexamethasone 6 mg 03/03/24 08:00 Dexamethasone 2 Mg Tablet PO 03/12/24 08:01 DAILY@0800 [facility] Enoxaparin Sodium 40 mg 03/03/24 09:00 Enoxaparin 40 Mg/0.4 Ml Syringe SUB-Q DAILY [facility] Furosemide 40 mg 03/03/24 09:00 Furosemide 40 Mg Tablet PO QAM [facility] Remdesivir 100 mg in 250 mls @ 250 mls/hr 03/03/24 22:00 IVPB 03/06/24 22:59 Q24H [facility] Levothyroxine Sodium 200 mcg 03/03/24 06:30 03/03/24 06:48 Levothyroxine Sodium 100 Mcg Tablet PO 200 mcg DAILY@0630 [facility] Administration Loratadine 10 mg 03/03/24 09:00 Loratadine 10 Mg Tablet PO QAM [facility] Multivitamins/Calcium 1 tablet 03/03/24 09:00 Therapeutic Multivitamins/Minerals Tab (*Bkc) PO DAILY [facility] Pregabalin 200 mg 03/03/24 09:00 Pregabalin (*Crx) 50 Mg Capsule PO BID [facility] Primidone 50 mg 03/03/24 09:00 Primidone 50 Mg Tablet PO BID [facility] Propranolol HCl 60 mg 03/02/24 21:35 03/03/24 00:10 Propranolol Hcl 60 Mg Capsule Cr PO 60 mg Q12HR [facility] Administration Rosuvastatin Calcium 20 mg 03/03/24 09:00 Rosuvastatin 20 Mg Tablet PO DAILY [facility] Spironolactone 50 mg 03/03/24 09:00 Spironolactone 50 Mg Tablet PO DAILY [facility] Vitamin D 2,000 units 03/03/24 09:00 Cholecalciferol 1,000 Units Tablet PO DAILY [facility] Radiology Results: ITS Impressions Chest X-Ray 03/02/24 17:44 IMPRESSION: Mild interstitial edema versus senescent/interstitial change. Labs Labs: Laboratory Results - last 24 hr 03/02/24 03/02/24 03/02/24 17:31 19:01 20:23 WBC 3.5 L RBC 4.72 Hgb 14.8 Hct 45.8 MCV 97.0 MCH 31.4 MCHC 32.3 RDW 14.5 Plt Count 127 L MPV 10.8 H Immature Gran % (Auto) Not Reportable Neut % (Auto) Not Reportable Lymph % (Auto) Not Reportable [place] % (Auto) Not Reportable Eos % (Auto) Not Reportable Baso % (Auto) Not Reportable Lymph # (Auto) Not Reportable [place] # (Auto) Not Reportable Eos # (Auto) Not Reportable Baso # (Auto) Not Reportable Abs Immat Gran (auto) Not Reportable Absolute Neuts (auto) Not Reportable Absolute Nucleated RBC Not Reportable Total Counted 100 Neutrophils % (Manual) 66 Lymphocytes % (Manual) 21.0 Monocytes % (Manual) 13 H Nucleated RBC % Not Reportable Abs Lymphs (Manual) 0.73 L Abs Monocytes (Manual) 0.45 Atypical Lymphocytes Present Smudge Cells Few Platelet Estimate Decreased Clumped Platelets Present Large Platelets Present % Immature Plt Fraction 4.1 Anisocytosis 1+ Stomatocytes 1+ Schistocytes None seen PT 13.7 INR 1.0 APTT 34.0 Sodium 135 L Potassium 4.8 Chloride 99 Carbon Dioxide 35 H Anion Gap 1 L BUN 29 H Creatinine 2.20 H Estim Creat Clear Calc 30 Estimated GFR 22 L Glucose 75 Lactic Acid 0.9 Calcium 10.6 H Magnesium 2.1 Total Bilirubin 0.6 AST 32 ALT 21 Alkaline Phosphatase 81 Lactate Dehydrogenase Troponin I < 0.012 < 0.012 C-Reactive Protein NT-Pro-B Natriuret Pep 925 H Total Protein 7.0 Albumin 3.9 Procalcitonin 0.2 Urine Color Yellow Urine Appearance Clear Urine pH 6.5 Ur Specific [place] 1.007 Urine Protein Negative Urine Glucose (UA) Negative Urine Ketones Negative Ur Blood (Man) Negative Urine Nitrate Negative Urine Bilirubin Negative Urine Urobilinogen 0.2 Leukocyte Esterase Rfl Negative Influenza A (RT-PCR) Negative Influenza B (RT-PCR) Negative RSV (RT-PCR) Negative SARS-CoV-2 RNA (RT-PCR) Positive A 03/03/24 05:57 WBC 3.3 L RBC 4.72 Hgb 14.7 Hct 47.1 H MCV 99.8 MCH 31.1 MCHC 31.2 L RDW 14.5 Plt Count 106 L MPV 10.8 H Immature Gran % (Auto) Neut % (Auto) Lymph % (Auto) [place] % (Auto) Eos % (Auto) Baso % (Auto) Lymph # (Auto) [place] # (Auto) Eos # (Auto) Baso # (Auto) Abs Immat Gran (auto) Absolute Neuts (auto) Absolute Nucleated RBC Total Counted Neutrophils % (Manual) Lymphocytes % (Manual) Monocytes % (Manual) Nucleated RBC % Abs Lymphs (Manual) Abs Monocytes (Manual) Atypical Lymphocytes Smudge Cells Platelet Estimate Clumped Platelets Large Platelets % Immature Plt Fraction Anisocytosis Stomatocytes Schistocytes PT INR APTT Sodium 137 Potassium 4.1 Chloride 100 Carbon Dioxide 31 H Anion Gap 6 BUN 28 H Creatinine 2.00 H Estim Creat Clear Calc 30 Estimated GFR 24 L Glucose 78 Lactic Acid Calcium 10.3 H Magnesium 2.2 Total Bilirubin AST ALT Alkaline Phosphatase Lactate Dehydrogenase 232 Troponin I C-Reactive Protein 2.6 H NT-Pro-B Natriuret Pep Total Protein Albumin Procalcitonin Urine Color Urine Appearance Urine pH Ur Specific [place] Urine Protein Urine Glucose (UA) Urine Ketones Ur Blood (Man) Urine Nitrate Urine Bilirubin Urine Urobilinogen Leukocyte Esterase Rfl Influenza A (RT-PCR) Influenza B (RT-PCR) RSV (RT-PCR) SARS-CoV-2 RNA (RT-PCR) Quality VTE Prophylaxis VTE prophylaxis: pharmacologic ordered
[2024-03-03 07:35] LABS: Thyroid Stimulating Hormone Reflex < 0.015 uIU/mL (0.465-4.68)
[2024-03-03] MEDS: HYDROcodone/acetaminophen (*CRX) 5-325 MG TABLET 1 TAB PO ×4 (07:58→21:22)
[2024-03-03] MEDS: CALCIUM CARBONATE (TUMS) 500 MG (200 MG ELEMENTAL) PO (08:01)
[2024-03-03] MEDS: dexAMETHasone 2 MG TABLET 6 MG PO (08:01)
[2024-03-03] MEDS: FUROSEMIDE 40 MG TABLET PO (08:02)
[2024-03-03] MEDS: CHOLECALCIFEROL 1,000 UNITS TABLET 2000 UNITS PO (08:02)
[2024-03-03] MEDS: PREGABALIN (*CRX) 50 MG CAPSULE 200 MG PO ×2 (08:03→17:05)
[2024-03-03] MEDS: LORATADINE 10 MG TABLET PO (08:03)
[2024-03-03] MEDS: PRIMIDONE 50 MG TABLET PO ×2 (08:03→17:05)
[2024-03-03] MEDS: THERAPEUTIC MULTIVITAMINS/MINERALS TAB (*BKC) 1 TABLET PO (08:03)
[2024-03-03] MEDS: ROSUVASTATIN 20 MG TABLET PO (08:04)
[2024-03-03] MEDS: SPIRONOLACTONE 50 MG TABLET PO (08:04)
[2024-03-03 08:08] LABS: Free T4 Free Thyroxine Reflex 2.26 ng/dL (0.78-2.19)
[2024-03-03] MEDS: REMDESIVIR 100 MG/NS 250 ML 100 MG/250 ML BAG 250 MG IVPB (21:22)
[2024-03-04] VITALS (8 sets, daily range): BP systolic 116–148; BP diastolic 61–84; PULSE 60–68; RESP 16–20; TEMP 36.1–36.8; O2SAT 93–98
[2024-03-04] MEDS: HYDROcodone/acetaminophen (*CRX) 5-325 MG TABLET 1 TAB PO ×4 (02:17→21:20)
[2024-03-04 05:38] LABS: INR 1.2; Prothrombin Time 15.2 Seconds (11.1-14.7)
[2024-03-04 05:38] LABS: Alanine Aminotransferase 24 U/L (6-35); Albumin Level 3.3 g/dL (3.5-5.1); Alkaline Phosphatase 71 U/L (38-126); Aspartate Amino Transferase 38 U/L (14-36); Bilirubin,Total 0.4 mg/dL (0.2-1.3)
[2024-03-04] MEDS: LEVOTHYROXINE SODIUM 100 MCG TABLET 200 MCG PO (06:31)
--- NOTE | 2024-03-04 08:18 | PM.IMPN ---
Progress Note: A&P Assessment and Plan (1) Generalized weakness: Code(s): R53.1 - Weakness Status: Acute Assessment and Plan: Limited mobility at baseline due to bone on bone arthritis in her right knee and according to her daughter she really only leaves her bedroom to go to the bathroom and back. The last several days she has been feeling increasingly weak from baseline and she was so weak prior to admission that she could not even get herself up off of the toilet. - Viral panel: Covid positive - UA unremarkable - Chest XR: Mild interstitial edema versus senescent/interstitial change. - PT/OT PT/OT was recommending SNF, however patient is against placement. She will not go SNF but is okay with home health. Care coordination is following. (2) COVID-19: Code(s): U07.1 - COVID-19 Status: Acute Assessment and Plan: Reports weakness, generalized malaise, body aches, headache, sore throat, and cough which is occasionally productive of yellow sputum. - Viral panel: Covid positive - Chest XR: Mild interstitial edema versus senescent/interstitial change. - Pt is a candidate for Remdesivir and Dexamethasone, continue treatment according to suggested guidelines. Remdesivir 200 mg IV x1, then 100 mg IV x4 days, dexamethasone 6 mg IV daily x 10 days, or until discharge - Bronchodilators - Currently on her baseline oxygen supplementation of 2L NC. Oxygen via NC; wean as tolerated. Keep spO2 greater than 91% - Place in COVID19 isolation precautions, cardiac monitoring, and continuous pulse ox - Monitor serum electrolytes, CRP, Lactic acid, troponin, CBC, WBC, temperature curve and follow cultures (3) Headache: Code(s): R51.9 - Headache, unspecified Status: Acute Assessment and Plan: Patient endorsing a headache that worsens with neck movement. She states that she has had falls in the past, unable to state when her most recent fall was. Not on any anticoagulation. Neuro exam negative. - Head CT: Normal aging brain. No acute intracranial process. - C spine CT: Stable mild cervical spondylosis. Anterior fusion procedure from C4-C7. - analgesics (4) Chronic respiratory failure with hypoxia, on home oxygen therapy: Code(s): J96.11 - Chronic respiratory failure with hypoxia; Z99.81 - Dependence on supplemental oxygen Status: Acute Assessment and Plan: Remains on baseline 2 L NC. (5) Chronic obstructive pulmonary disease: Code(s): J44.9 - Chronic obstructive pulmonary disease, unspecified Status: Acute Assessment and Plan: Chronic, does not appear in acute exacerbation. - Monitor (6) Chronic kidney disease, stage 4 (severe): Code(s): N18.4 - Chronic kidney disease, stage 4 (severe) Status: Acute Assessment and Plan: Follows with nephrology, Dr. Penaloza. Last seen 12/17/23. AV shunt placement was attempted for possible dialysis, however this failed. - BUN/Cr 39/2.3 on am labs - Continue to monitor renal function - Avoid nephrotoxic medications - Renally dose medications (7) Hypothyroidism, unspecified: Qualifiers: Hypothyroidism type: unspecified Qualified Code(s): E03.9 - Hypothyroidism, unspecified Code(s): E03.9 - Hypothyroidism, unspecified Status: Acute Assessment and Plan: Chronic, continue home medications - Synthroid 200 mg daily, dose last adjusted on 02/26 by PCP (8) Hypertension: Code(s): I10 - Essential (primary) hypertension Status: Acute Assessment and Plan: Chronic, continue home medications - propranolol 60 mg daily - lasix 40 mg daily - spironolactone 50 mg daily - monitor (9) Hyperlipidemia, unspecified: Qualifiers: Hyperlipidemia type: mixed hyperlipidemia Qualified Code(s): E78.2 - Mixed hyperlipidemia Code(s): E78.5 - Hyperlipidemia, unspecified Status: Acute Assessment and Plan: Chronic, continue home medications - rosuvastatin 20 mg daily Time Spent With Patient Time with patient: 25 - 35 minutes Subjective Date/time seen: 03/04/24 08:18 Interval history: 73-year-old female with chronic hypoxic respiratory failure on home oxygen, chronic obstructive pulmonary disease, chronic kidney disease stage 4, hypertension, hyperlipidemia, arthritis, hypothyroidism, and other comorbidities who presented to the emergency department via EMS from home for evaluation of weakness. Patient is pleasant working with PT in getting up to her chair. She states that she feels slightly short of breath and has a worsening cough, but denies chest pain, palpitations, nausea/vomiting and abdominal pain. She continues to endorse pain throughout. Discussed with her that pain management outpatient would be beneficial for her chornic symptoms. PT/OT was originally recommending SNF, however patient is against placement. She states that she will not go SNF but is okay with home health if necessary at time of dishcarge. Care coordination is following. Review of Systems Review of Systems: All systems reviewed & are unremarkable except as noted in HPI and below Exam Narrative: AF HR 68 RR 18 SPO2 94 2L NC BP 139/64 General: female in no acute respiratory distress who is nontoxic appearing, lying semi recumbent in bed. HEENT: Normocephalic. Atraumatic. Extraocular movement intact. Sclera clear and anicteric. No facial asymmetry. Chest: Lungs are diminished to auscultation bilaterally with slight wheezing. No crackles. CV: Heart was regular rate and rhythm. S1-S2. No murmurs, gallops, or rubs. Abd: Abdomen was soft. Nontender. Nondistended. Positive bowel sounds. No organomegaly or masses. Ext: No clubbing, cyanosis, or edema. 2+ DP pulses bilaterally. Neuro: Patient is alert and oriented x4. Cranial nerves 2-12 are intact. Speech is clear. Objective Data Vital Signs Vital Signs: Vital Signs - 24 hr 03/03/24 08:35 03/03/24 09:10 03/03/24 13:07 Temperature Pulse Rate Respiratory Rate Blood Pressure Pulse Oximetry 92 Oxygen Delivery Nasal Cannula Nasal Cannula Nasal Cannula Oxygen Flow Rate 2 2 2 Fraction of Inspired Oxygen 28 03/03/24 14:00 03/03/24 20:00 03/03/24 21:22 Temperature 98.2 F Pulse Rate 79 79 Respiratory Rate 18 Blood Pressure 116/63 Pulse Oximetry 91 96 Oxygen Delivery Nasal Cannula Oxygen Flow Rate 2 Fraction of Inspired Oxygen 03/03/24 22:00 03/04/24 06:00 Temperature 98.7 F 97 F L Pulse Rate 73 60 Respiratory Rate 20 20 Blood Pressure 133/60 116/84 Pulse Oximetry 95 97 Oxygen Delivery Oxygen Flow Rate Fraction of Inspired Oxygen Intake/Output Intake/Output: Intake & Output 03/01/24 03/02/24 03/03/24 03/04/24 23:59 23:59 23:59 23:59 Intake Total 1570 200 Output Total 1950 700 Balance -380 -500 Meds/Results Medications: Active Medications Generic Name Dose Route Start Last Admin Trade Name Freq PRN Reason Stop Dose Admin Acetaminophen 650 mg 03/02/24 18:39 03/02/24 19:04 Acetaminophen 325 Mg Tablet PO 650 mg Q4H PRN Administration Mild Pain (1-3) or Fever Hydrocodone Bitart/Acetaminophen 1 tab 03/02/24 18:39 03/04/24 02:17 Hydrocodone/Acetaminophen (*Crx) 5-325 Mg Tablet PO 1 tab Q4H PRN Administration Pain Rated 4-6 Calcitriol 0.25 mcg 03/02/24 20:00 Calcitriol 0.25 Mcg Capsule PO MoWeFr PRN AFTER DIALYSIS Calcium Carbonate 200 mg 03/03/24 09:00 03/03/24 08:01 Calcium Carbonate (Tums) 500 Mg (200 Mg Elemental) PO 200 mg DAILY [facility] Administration Dexamethasone 6 mg 03/03/24 08:00 03/03/24 08:01 Dexamethasone 2 Mg Tablet PO 03/12/24 08:01 6 mg DAILY@0800 [facility] Administration Enoxaparin Sodium 40 mg 03/03/24 09:00 03/03/24 08:07 Enoxaparin 40 Mg/0.4 Ml Syringe SUB-Q Not Given DAILY [facility] Furosemide 40 mg 03/03/24 09:00 03/03/24 08:02 Furosemide 40 Mg Tablet PO 40 mg QAM [facility] Administration Remdesivir 100 mg in 250 mls @ 250 mls/hr 03/03/24 22:00 03/03/24 21:22 IVPB 03/06/24 22:59 250 mls/hr Q24H [facility] Administration Levothyroxine Sodium 200 mcg 03/03/24 06:30 03/04/24 06:31 Levothyroxine Sodium 100 Mcg Tablet PO 200 mcg DAILY@0630 [facility] Administration Loratadine 10 mg 03/03/24 09:00 03/03/24 08:03 Loratadine 10 Mg Tablet PO 10 mg QAM [facility] Administration Multivitamins/Calcium 1 tablet 03/03/24 09:00 03/03/24 08:03 Therapeutic Multivitamins/Minerals Tab (*Bkc) PO 1 tablet DAILY [facility] Administration Pregabalin 200 mg 03/03/24 09:00 03/03/24 17:05 Pregabalin (*Crx) 50 Mg Capsule PO 200 mg BID [facility] Administration Primidone 50 mg 03/03/24 09:00 03/03/24 17:05 Primidone 50 Mg Tablet PO 50 mg BID [facility] Administration Propranolol HCl 60 mg 03/02/24 21:35 03/03/24 21:22 Propranolol Hcl 60 Mg Capsule Cr PO 60 mg Q12HR [facility] Administration Rosuvastatin Calcium 20 mg 03/03/24 09:00 03/03/24 08:04 Rosuvastatin 20 Mg Tablet PO 20 mg DAILY [facility] Administration Spironolactone 50 mg 03/03/24 09:00 03/03/24 08:04 Spironolactone 50 Mg Tablet PO 50 mg DAILY [facility] Administration Vitamin D 2,000 units 03/03/24 09:00 03/03/24 08:02 Cholecalciferol 1,000 Units Tablet PO 2,000 units DAILY [facility] Administration Radiology Results: ITS Impressions Chest X-Ray 03/02/24 17:44 IMPRESSION: Mild interstitial edema versus senescent/interstitial change. Head CT 03/03/24 15:36 IMPRESSION: 1. Normal aging brain. No acute intracranial process. Cervical Spine CT 03/03/24 16:53 IMPRESSION: 1. Stable mild cervical spondylosis. 2. Anterior fusion procedure from C4 to C7. Labs Labs: Laboratory Results - last 24 hr 03/04/24 03/04/24 05:04 05:05 PT 15.2 H INR 1.2 Total Bilirubin 0.4 Direct Bilirubin 0.0 AST 38 H ALT 24 Alkaline Phosphatase 71 Total Protein 6.0 L Albumin 3.3 L Quality VTE Prophylaxis VTE prophylaxis: pharmacologic ordered
[2024-03-04 09:05] LABS: Hemoglobin 13.3 g/dL (12.0-15.0); Mean Corpuscular HGB Conc 31.7 g/dl (32-36); Mean Corpuscular Hemoglobin 31.2 pg (26-34); Mean Corpuscular Volume 98.6 fl (80-100); Mean Platelet Volume 11.9 fl (7.4-10.4); Platelet Count Result 105 k/mm3 (150-375); Red Blood Count 4.26 M/mm3 (4.2-5.4); Red Cell Distribution Width 14.6 % (11.5-14.5); White Blood Count 3.5 K/mm3 (4.5-10.0)
[2024-03-04 09:30] LABS: Alanine Aminotransferase 24 U/L (6-35); Albumin Level 3.2 g/dL (3.5-5.1); Alkaline Phosphatase 71 U/L (38-126); Anion Gap 3 mmol/L (4-12); Aspartate Amino Transferase 67 U/L (14-36); Bilirubin,Total 0.4 mg/dL (0.2-1.3); Blood Urea Nitrogen 39 mg/dL (7-17); Calcium 9.2 mg/dL (8.4-10.2); Carbon Dioxide 29 mmol/L (22-30); Chloride 100 mmol/L (98-107); Estimated CRCL calculation 26 ml/min; Estimated Glomerular Filt Rate 21; Glucose 86 mg/dL (65-110); Potassium 3.9 mmol/L (3.4-5.0); Sodium 132 mmol/L (137-145)
[2024-03-04 09:32] LABS: Anisocytosis 1+; Eosinophils Absolute Manual 0.03 K/mm3 (0.02-0.50); Eosinophils Percent Manual 1 % (0-4); Lymphocytes Percent Manual 40 % (18-44); Monocytes Absolute Manual 0.56 K/mm3 (0.1-0.90); Monocytes Percent Manual 16 % (3-9); Neutrophils Percent Manual 43 % (46-73); Platelet Estimate Decreased (Adequate); Schistocytes None Seen; Smudge Cells FEW; Total Cells Counted 100
[2024-03-04] MEDS: dexAMETHasone 2 MG TABLET 6 MG PO (10:03)
[2024-03-04] MEDS: CALCIUM CARBONATE (TUMS) 500 MG (200 MG ELEMENTAL) PO (10:04)
[2024-03-04] MEDS: ENOXAPARIN 40 MG/0.4 ML SYRINGE SUB-Q (10:04)
[2024-03-04] MEDS: FUROSEMIDE 40 MG TABLET PO (10:04)
[2024-03-04] MEDS: CHOLECALCIFEROL 1,000 UNITS TABLET 2000 UNITS PO (10:04)
[2024-03-04] MEDS: LORATADINE 10 MG TABLET PO (10:05)
[2024-03-04] MEDS: PREGABALIN (*CRX) 50 MG CAPSULE 200 MG PO ×2 (10:05→16:35)
[2024-03-04] MEDS: THERAPEUTIC MULTIVITAMINS/MINERALS TAB (*BKC) 1 TABLET PO (10:05)
[2024-03-04] MEDS: ROSUVASTATIN 20 MG TABLET PO (10:06)
[2024-03-04] MEDS: PRIMIDONE 50 MG TABLET PO ×2 (10:06→16:34)
[2024-03-04] MEDS: PROPRANOLOL HCL 60 MG CAPSULE CR PO ×2 (10:06→21:19)
[2024-03-04] MEDS: SPIRONOLACTONE 50 MG TABLET PO (10:06)
[2024-03-04] MEDS: BENZOCAINE/MENTHOL (*BKC) 18 EA LOZENGE 1 LOZENGE PO (12:16)
[2024-03-04] MEDS: REMDESIVIR 100 MG/NS 250 ML 100 MG/250 ML BAG 250 MG IVPB (21:20)
[2024-03-05] VITALS (7 sets, daily range): BP systolic 114–128; BP diastolic 50–82; PULSE 55–66; RESP 16–18; TEMP 35.9–37.1; O2SAT 93–95
[2024-03-05 05:48] LABS: Basophils Percent Auto 0.2 % (0.2-1.2); Eosinophils Percent Auto 0.2 % (0-4.4); Hematocrit 42.7 % (37.0-47.0); Hemoglobin 13.4 g/dL (12.0-15.0); Immature Granulocyte Absolute 0.01 K/mm3 (0.00-0.031); Immature Granulocyte Percent A 0.2 % (0-0.5); Immature Platelet Fraction Pct 5.9 % (0.9-11.2); Lymphocytes Absolute Auto 1.44 K/mm3 (0.9-3.2); Lymphocytes Percent Auto 32.6 % (18.3-44.2); Mean Corpuscular HGB Conc 31.4 g/dl (32-36); Mean Corpuscular Hemoglobin 30.8 pg (26-34); Mean Corpuscular Volume 98.2 fl (80-100); Mean Platelet Volume 10.8 fl (7.4-10.4); Monocytes Absolute Auto 0.8 K/mm3 (0.1-0.6); Monocytes Percent Auto 18.1 % (2.6-8.5); Neutrophils Absolute Auto 2.2 K/mm3 (1.3-6.7); Neutrophils Percent Auto 48.7 % (45.5-73.1); Platelet Count Result 107 k/mm3 (150-375); Red Blood Count 4.35 M/mm3 (4.2-5.4); Red Cell Distribution Width 14.1 % (11.5-14.5); White Blood Count 4.4 K/mm3 (4.5-10.0)
[2024-03-05 06:00] LABS: Alanine Aminotransferase 22 U/L (6-35); Albumin Level 3.3 g/dL (3.5-5.1); Alkaline Phosphatase 66 U/L (38-126); Anion Gap 3 mmol/L (4-12); Aspartate Amino Transferase 32 U/L (14-36); Bilirubin,Total 0.4 mg/dL (0.2-1.3); Blood Urea Nitrogen 43 mg/dL (7-17); Calcium 9.6 mg/dL (8.4-10.2); Carbon Dioxide 34 mmol/L (22-30); Chloride 100 mmol/L (98-107); Estimated CRCL calculation 28 ml/min; Estimated Glomerular Filt Rate 22; Glucose 83 mg/dL (65-110); Potassium 4.3 mmol/L (3.4-5.0); Sodium 137 mmol/L (137-145)
[2024-03-05] MEDS: HYDROcodone/acetaminophen (*CRX) 5-325 MG TABLET 1 TAB PO ×4 (06:59→22:39)
[2024-03-05] MEDS: LEVOTHYROXINE SODIUM 100 MCG TABLET 200 MCG PO (06:59)
[2024-03-05] MEDS: dexAMETHasone 2 MG TABLET 6 MG PO (08:06)
[2024-03-05] MEDS: ENOXAPARIN 40 MG/0.4 ML SYRINGE SUB-Q (08:06)
[2024-03-05] MEDS: CHOLECALCIFEROL 1,000 UNITS TABLET 2000 UNITS PO (08:06)
[2024-03-05] MEDS: ROSUVASTATIN 20 MG TABLET PO (08:07)
[2024-03-05] MEDS: LORATADINE 10 MG TABLET PO (08:07)
[2024-03-05] MEDS: THERAPEUTIC MULTIVITAMINS/MINERALS TAB (*BKC) 1 TABLET PO (08:07)
[2024-03-05] MEDS: SPIRONOLACTONE 50 MG TABLET PO (08:07)
[2024-03-05] MEDS: PRIMIDONE 50 MG TABLET PO ×2 (08:07→17:01)
[2024-03-05] MEDS: PREGABALIN (*CRX) 50 MG CAPSULE 200 MG PO ×2 (08:07→17:00)
[2024-03-05] MEDS: FUROSEMIDE 40 MG TABLET PO (08:07)
[2024-03-05] MEDS: CALCIUM CARBONATE (TUMS) 500 MG (200 MG ELEMENTAL) PO (08:07)
[2024-03-05] MEDS: PROPRANOLOL HCL 60 MG CAPSULE CR PO ×2 (08:08→22:35)
--- NOTE | 2024-03-05 14:47 | P.PNIM_ITS ---
Progress Note: A&P Assessment and Plan (1) Generalized weakness: Code(s): R53.1 - Weakness Status: Acute Assessment and Plan: Limited mobility at baseline due to bone on bone arthritis in her right knee and according to her daughter she really only leaves her bedroom to go to the bathroom and back. The last several days she has been feeling increasingly weak from baseline and she was so weak prior to admission that she could not even get herself up off of the toilet. - Viral panel: Covid positive - UA unremarkable - Chest XR: Mild interstitial edema versus senescent/interstitial change. - PT/OT PT/OT was recommending SNF, however patient was against placement- but agreable now (2) COVID-19: Code(s): U07.1 - COVID-19 Status: Acute Assessment and Plan: Reports weakness, generalized malaise, body aches, headache, sore throat, and cough which is occasionally productive of yellow sputum. - Viral panel: Covid positive - Chest XR: Mild interstitial edema versus senescent/interstitial change. - Pt is a candidate for Remdesivir and Dexamethasone, continue treatment according to suggested guidelines. Remdesivir 200 mg IV x1, then 100 mg IV x4 days, dexamethasone 6 mg IV daily x 10 days, or until discharge - Bronchodilators - Currently on her baseline oxygen supplementation of 2L NC. Oxygen via NC; wean as tolerated. Keep spO2 greater than 91% - Place in COVID19 isolation precautions, cardiac monitoring, and continuous pulse ox - Monitor serum electrolytes, CRP, Lactic acid, troponin, CBC, WBC, temperature curve and follow cultures (3) Headache: Code(s): R51.9 - Headache, unspecified Status: Acute Assessment and Plan: Patient endorsing a headache that worsens with neck movement. She states that she has had falls in the past, unable to state when her most recent fall was. Not on any anticoagulation. Neuro exam negative. - Head CT: Normal aging brain. No acute intracranial process. - C spine CT: Stable mild cervical spondylosis. Anterior fusion procedure from C4-C7. - analgesics (4) Chronic respiratory failure with hypoxia, on home oxygen therapy: Code(s): J96.11 - Chronic respiratory failure with hypoxia; Z99.81 - Dependence on supplemental oxygen Status: Acute Assessment and Plan: Remains on baseline 2 L NC. (5) Chronic obstructive pulmonary disease: Code(s): J44.9 - Chronic obstructive pulmonary disease, unspecified Status: Acute Assessment and Plan: Chronic, does not appear in acute exacerbation. - Monitor (6) Chronic kidney disease, stage 4 (severe): Code(s): N18.4 - Chronic kidney disease, stage 4 (severe) Status: Acute Assessment and Plan: Follows with nephrology, Dr. Penaloza. Last seen 12/17/23. AV shunt placement was attempted for possible dialysis, however this failed. - BUN/Cr 39/2.3 on am labs - Continue to monitor renal function - Avoid nephrotoxic medications - Renally dose medications (7) Hypothyroidism, unspecified: Qualifiers: Hypothyroidism type: unspecified Qualified Code(s): E03.9 - Hypothyroidism, unspecified Code(s): E03.9 - Hypothyroidism, unspecified Status: Acute Assessment and Plan: Chronic, continue home medications - Synthroid 200 mg daily, dose last adjusted on 02/26 by PCP (8) Hypertension: Code(s): I10 - Essential (primary) hypertension Status: Acute Assessment and Plan: Chronic, continue home medications - propranolol 60 mg daily - lasix 40 mg daily - spironolactone 50 mg daily - monitor (9) Hyperlipidemia, unspecified: Qualifiers: Hyperlipidemia type: mixed hyperlipidemia Qualified Code(s): E78.2 - Mixed hyperlipidemia Code(s): E78.5 - Hyperlipidemia, unspecified Status: Acute Assessment and Plan: Chronic, continue home medications - rosuvastatin 20 mg daily Time Spent With Patient Time with patient: Greater than 35 minutes Subjective Date/time seen: 03/05/24 14:47 Interval history: 73-year-old female with chronic hypoxic respiratory failure on home oxygen, chronic obstructive pulmonary disease, chronic kidney disease stage 4, hypertension, hyperlipidemia, arthritis, hypothyroidism, and other comorbidities who presented to the emergency department via EMS from home for evaluation of weakness. Patient is pleasant working with PT in getting up to her chair. She states that she feels slightly short of breath and has a worsening cough, but denies chest pain, palpitations, nausea/vomiting and abdominal pain. She continues to endorse pain throughout. Discussed with her that pain management outpatient would be beneficial for her chronic symptoms. PT/OT was originally recommending SNF, however patient is against placement. She states that she will not go SNF but is okay with home health if necessary at time of discharge. Care coordination is following. assuming care. Pt is back to her baseline but doesnot want to go home as her daughter is concerned that might get covid as well plus pt is agreeable now to try rehab for strength. care coordination is working to arrange that. Review of Systems Review of Systems: 12 systems were reviewed and are negativ e except for as per HPI. All systems reviewed & are unremarkable except as noted in HPI and below Exam Narrative: AF HR 68 RR 18 SPO2 94 2L NC BP 139/64 General: female in no acute respiratory distress who is nontoxic appearing, lying semi recumbent in bed. HEENT: Normocephalic. Atraumatic. Extraocular movement intact. Sclera clear and anicteric. No facial asymmetry. Chest: Lungs are diminished to auscultation bilaterally with slight wheezing. No crackles. CV: Heart was regular rate and rhythm. S1-S2. No murmurs, gallops, or rubs. Abd: Abdomen was soft. Nontender. Nondistended. Positive bowel sounds. No organomegaly or masses. Ext: No clubbing, cyanosis, or edema. 2+ DP pulses bilaterally. Neuro: Patient is alert and oriented x4. Cranial nerves 2-12 are intact. Speech is clear. Objective Data Vital Signs Vital Signs: Vital Signs - 24 hr 03/04/24 20:11 03/04/24 21:19 03/05/24 05:05 Temperature 97.0 F L 96.6 F L Pulse Rate 62 60 61 Respiratory Rate 16 16 Blood Pressure 148/61 H 114/55 L Pulse Oximetry 93 93 03/05/24 08:08 03/05/24 08:14 Temperature Pulse Rate 66 Respiratory Rate Blood Pressure 128/82 Pulse Oximetry Intake/Output Intake/Output: Intake & Output 03/02/24 03/03/24 03/04/24 03/05/24 23:59 23:59 23:59 23:59 Intake Total 1820 1410 150 Output Total 1950 1600 300 Balance -130 -190 -150 Meds/Results Medications: Active Medications Generic Name Dose Route Start Last Admin Trade Name Freq PRN Reason Stop Dose Admin Acetaminophen 650 mg 03/02/24 18:39 03/02/24 19:04 Acetaminophen 325 Mg Tablet PO 650 mg Q4H PRN Administration Mild Pain (1-3) or Fever Hydrocodone Bitart/Acetaminophen 1 tab 03/02/24 18:39 03/05/24 12:28 Hydrocodone/Acetaminophen (*Crx) 5-325 Mg Tablet PO 1 tab Q4H PRN Administration Pain Rated 4-6 Benzocaine 1 lozenge 03/04/24 11:47 03/04/24 12:16 Benzocaine/Menthol (*Bkc) 18 Ea Lozenge PO 1 lozenge PRN PRN Administration Sore Throat Calcitriol 0.25 mcg 03/02/24 20:00 Calcitriol 0.25 Mcg Capsule PO MoWeFr PRN AFTER DIALYSIS Calcium Carbonate 200 mg 03/03/24 09:00 03/05/24 08:07 Calcium Carbonate (Tums) 500 Mg (200 Mg Elemental) PO 200 mg DAILY QUINTON Administration Dexamethasone 6 mg 03/03/24 08:00 03/05/24 08:06 Dexamethasone 2 Mg Tablet PO 03/12/24 08:01 6 mg DAILY@0800 QUINTON Administration Enoxaparin Sodium 40 mg 03/03/24 09:00 03/05/24 08:06 Enoxaparin 40 Mg/0.4 Ml Syringe SUB-Q 40 mg DAILY QUINTON Administration Furosemide 40 mg 03/03/24 09:00 03/05/24 08:07 Furosemide 40 Mg Tablet PO 40 mg QAM QUINTON Administration Guaifenesin/Dextromethorphan 5 ml 03/04/24 14:11 Guaifenesin/Dextromethorphan 10 Ml Udc PO Q4H PRN Cough Remdesivir 100 mg in 250 mls @ 250 mls/hr 03/03/24 22:00 03/04/24 22:25 IVPB 03/06/24 22:59 Infused Q24H QUNITON Infusion Levothyroxine Sodium 200 mcg 03/03/24 06:30 03/05/24 06:59 Levothyroxine Sodium 100 Mcg Tablet PO 200 mcg DAILY@0630 QUINTON Administration Loratadine 10 mg 03/03/24 09:00 03/05/24 08:07 Loratadine 10 Mg Tablet PO 10 mg QAM QUINTON Administration Multivitamins/Calcium 1 tablet 03/03/24 09:00 03/05/24 08:07 Therapeutic Multivitamins/Minerals Tab (*Bkc) PO 1 tablet DAILY QUINTON Administration Pregabalin 200 mg 03/03/24 09:00 03/05/24 08:07 Pregabalin (*Crx) 50 Mg Capsule PO 200 mg BID QUINTON Administration Primidone 50 mg 03/03/24 09:00 03/05/24 08:07 Primidone 50 Mg Tablet PO 50 mg BID QUINTON Administration Propranolol HCl 60 mg 03/02/24 21:35 03/05/24 08:08 Propranolol Hcl 60 Mg Capsule Cr PO 60 mg Q12HR QUINTON Administration Rosuvastatin Calcium 20 mg 03/03/24 09:00 03/05/24 08:07 Rosuvastatin 20 Mg Tablet PO 20 mg DAILY QUINTON Administration Spironolactone 50 mg 03/03/24 09:00 03/05/24 08:07 Spironolactone 50 Mg Tablet PO 50 mg DAILY QUINTON Administration Vitamin D 2,000 units 03/03/24 09:00 03/05/24 08:06 Cholecalciferol 1,000 Units Tablet PO 2,000 units DAILY QUINTON Administration Radiology Results: ITS Impressions Chest X-Ray 03/02/24 17:44 IMPRESSION: Mild interstitial edema versus senescent/interstitial change. Head CT 03/03/24 15:36 IMPRESSION: 1. Normal aging brain. No acute intracranial process. Cervical Spine CT 03/03/24 16:53 IMPRESSION: 1. Stable mild cervical spondylosis. 2. Anterior fusion procedure from C4 to C7. Labs Labs: Laboratory Results - last 24 hr 03/05/24 05:27 WBC 4.4 L RBC 4.35 Hgb 13.4 Hct 42.7 MCV 98.2 MCH 30.8 MCHC 31.4 L RDW 14.1 Plt Count 107 L MPV 10.8 H Immature Gran % (Auto) 0.2 Neut % (Auto) 48.7 Lymph % (Auto) 32.6 [place] % (Auto) 18.1 H Eos % (Auto) 0.2 Baso % (Auto) 0.2 Lymph # (Auto) 1.44 [place] # (Auto) 0.8 H Eos # (Auto) 0.0 Baso # (Auto) 0.0 Abs Immat Gran (auto) 0.01 Absolute Neuts (auto) 2.2 Absolute Nucleated RBC 0.000 Nucleated RBC % 0.0 % Immature Plt Fraction 5.9 Sodium 137 Potassium 4.3 Chloride 100 Carbon Dioxide 34 H Anion Gap 3 L BUN 43 H Creatinine 2.20 H Estim Creat Clear Calc 28 Estimated GFR 22 L Glucose 83 Calcium 9.6 Total Bilirubin 0.4 AST 32 ALT 22 Alkaline Phosphatase 66 Total Protein 6.0 L Albumin 3.3 L Quality VTE Prophylaxis VTE prophylaxis: pharmacologic ordered
[2024-03-05] MEDS: REMDESIVIR 100 MG/NS 250 ML 100 MG/250 ML BAG 250 MG IVPB (22:35)
[2024-03-06 06:12] VITALS: BP 131/63; PULSE 54; RESP 16; TEMP 36.2; O2SAT 97
[2024-03-06] MEDS: LEVOTHYROXINE SODIUM 100 MCG TABLET 200 MCG PO (06:26)
[2024-03-06 06:46] LABS: Basophils Percent Auto 0.6 % (0.2-1.2); Eosinophils Absolute Auto 0.1 K/mm3 (0-0.3); Eosinophils Percent Auto 1.4 % (0-4.4); Hematocrit 43.6 % (37.0-47.0); Hemoglobin 13.7 g/dL (12.0-15.0); Immature Granulocyte Absolute 0.01 K/mm3 (0.00-0.031); Immature Granulocyte Percent A 0.3 % (0-0.5); Immature Platelet Fraction Pct 5.4 % (0.9-11.2); Lymphocytes Absolute Auto 1.69 K/mm3 (0.9-3.2); Mean Corpuscular HGB Conc 31.4 g/dl (32-36); Mean Corpuscular Hemoglobin 31.1 pg (26-34); Mean Corpuscular Volume 98.9 fl (80-100); Mean Platelet Volume 11.1 fl (7.4-10.4); Monocytes Absolute Auto 0.5 K/mm3 (0.1-0.6); Monocytes Percent Auto 15.3 % (2.6-8.5); Neutrophils Absolute Auto 1.2 K/mm3 (1.3-6.7); Neutrophils Percent Auto 34.4 % (45.5-73.1); Platelet Count Result 103 k/mm3 (150-375); Red Blood Count 4.41 M/mm3 (4.2-5.4); Red Cell Distribution Width 13.9 % (11.5-14.5); White Blood Count 3.5 K/mm3 (4.5-10.0)
[2024-03-06 07:00] LABS: INR 1.1; Prothrombin Time 14.1 Seconds (11.1-14.7)
[2024-03-06 07:01] LABS: Alanine Aminotransferase 35 U/L (6-35); Albumin Level 3.2 g/dL (3.5-5.1); Alkaline Phosphatase 74 U/L (38-126); Anion Gap -1 mmol/L (4-12); Aspartate Amino Transferase 43 U/L (14-36); Bilirubin,Total 0.4 mg/dL (0.2-1.3); Blood Urea Nitrogen 42 mg/dL (7-17); Calcium 9.2 mg/dL (8.4-10.2); Carbon Dioxide 33 mmol/L (22-30); Chloride 101 mmol/L (98-107); Estimated CRCL calculation 29 ml/min; Estimated Glomerular Filt Rate 23; Glucose 77 mg/dL (65-110); Potassium 4.6 mmol/L (3.4-5.0); Sodium 133 mmol/L (137-145)
--- NOTE | 2024-03-06 08:44 | P.PNIM_ITS ---
Progress Note: A&P Assessment and Plan (1) Generalized weakness: Code(s): R53.1 - Weakness Status: Acute Assessment and Plan: Limited mobility at baseline due to bone on bone arthritis in her right knee and according to her daughter she really only leaves her bedroom to go to the bathroom and back. The last several days she has been feeling increasingly weak from baseline and she was so weak prior to admission that she could not even get herself up off of the toilet. - Viral panel: Covid positive - UA unremarkable - Chest XR: Mild interstitial edema versus senescent/interstitial change. - PT/OT PT/OT was recommending SNF, however patient was against placement- but agreeable now awaiting placement (2) COVID-19: Code(s): U07.1 - COVID-19 Status: Acute Assessment and Plan: Reports weakness, generalized malaise, body aches, headache, sore throat, and cough which is occasionally productive of yellow sputum. - Viral panel: Covid positive - Chest XR: Mild interstitial edema versus senescent/interstitial change. - Pt is a candidate for Remdesivir and Dexamethasone, continue treatment according to suggested guidelines. Remdesivir 200 mg IV x1, then 100 mg IV x4 days, dexamethasone 6 mg IV daily x 10 days, or until discharge - Bronchodilators - Currently on her baseline oxygen supplementation of 2L NC. Oxygen via NC; wean as tolerated. Keep spO2 greater than 91% - Place in COVID19 isolation precautions, cardiac monitoring, and continuous pulse ox - Monitor serum electrolytes, CRP, Lactic acid, troponin, CBC, WBC, temperature curve and follow cultures (3) Headache: Code(s): R51.9 - Headache, unspecified Status: Acute Assessment and Plan: Patient endorsing a headache that worsens with neck movement. She states that she has had falls in the past, unable to state when her most recent fall was. Not on any anticoagulation. Neuro exam negative. - Head CT: Normal aging brain. No acute intracranial process. - C spine CT: Stable mild cervical spondylosis. Anterior fusion procedure from C4-C7. - analgesics (4) Chronic respiratory failure with hypoxia, on home oxygen therapy: Code(s): J96.11 - Chronic respiratory failure with hypoxia; Z99.81 - Dependence on supplemental oxygen Status: Acute Assessment and Plan: Remains on baseline 2 L NC. (5) Chronic obstructive pulmonary disease: Code(s): J44.9 - Chronic obstructive pulmonary disease, unspecified Status: Acute Assessment and Plan: Chronic, does not appear in acute exacerbation. - Monitor (6) Chronic kidney disease, stage 4 (severe): Code(s): N18.4 - Chronic kidney disease, stage 4 (severe) Status: Acute Assessment and Plan: Follows with nephrology, Dr. Penaloza. Last seen 12/17/23. AV shunt placement was attempted for possible dialysis, however this failed. - BUN/Cr 39/2.3 on am labs - Continue to monitor renal function - Avoid nephrotoxic medications - Renally dose medications (7) Hypothyroidism, unspecified: Qualifiers: Hypothyroidism type: unspecified Qualified Code(s): E03.9 - Hypothyroidism, unspecified Code(s): E03.9 - Hypothyroidism, unspecified Status: Acute Assessment and Plan: Chronic, continue home medications - Synthroid 200 mg daily, dose last adjusted on 02/26 by PCP (8) Hypertension: Code(s): I10 - Essential (primary) hypertension Status: Acute Assessment and Plan: Chronic, continue home medications - propranolol 60 mg daily - lasix 40 mg daily - spironolactone 50 mg daily - monitor (9) Hyperlipidemia, unspecified: Qualifiers: Hyperlipidemia type: mixed hyperlipidemia Qualified Code(s): E78.2 - Mixed hyperlipidemia Code(s): E78.5 - Hyperlipidemia, unspecified Status: Acute Assessment and Plan: Chronic, continue home medications - rosuvastatin 20 mg daily Time Spent With Patient Time with patient: Greater than 35 minutes Subjective Date/time seen: 03/06/24 08:44 Interval history: 73-year-old female with chronic hypoxic respiratory failure on home oxygen, chronic obstructive pulmonary disease, chronic kidney disease stage 4, hypertension, hyperlipidemia, arthritis, hypothyroidism, and other comorbidities who presented to the emergency department via EMS from home for evaluation of weakness. Patient is pleasant working with PT in getting up to her chair. She states that she feels slightly short of breath and has a worsening cough, but denies chest pain, palpitations, nausea/vomiting and abdominal pain. She continues to endorse pain throughout. Discussed with her that pain management outpatient would be beneficial for her chronic symptoms. PT/OT was originally recommending SNF, however patient is against placement. She states that she will not go SNF but is okay with home health if necessary at time of discharge. Care coordination is following. assuming care. Pt is back to her baseline but doesnot want to go home as her daughter is concerned that might get covid as well plus pt is agreeable now to try rehab for strength. care coordination is working to arrange that. 03/06- awaiting placement -care coordination following. supportive care Review of Systems Review of Systems: 12 systems were reviewed and are negativ e except for as per HPI. All systems reviewed & are unremarkable except as noted in HPI and below Exam Narrative: General: female in no acute respiratory distress who is nontoxic appearing, lying semi recumbent in bed. HEENT: Normocephalic. Atraumatic. Extraocular movement intact. Sclera clear and anicteric. No facial asymmetry. Chest: Lungs are diminished to auscultation bilaterally with slight wheezing. No crackles. CV: Heart was regular rate and rhythm. S1-S2. No murmurs, gallops, or rubs. Abd: Abdomen was soft. Nontender. Nondistended. Positive bowel sounds. No organomegaly or masses. Ext: No clubbing, cyanosis, or edema. 2+ DP pulses bilaterally. Neuro: Patient is alert and oriented x4. Cranial nerves 2-12 are intact. Speech is clear. Objective Data Vital Signs Vital Signs: Vital Signs - 24 hr 03/05/24 14:00 03/05/24 20:00 03/05/24 20:39 Temperature 97.3 F L 98.7 F Pulse Rate 55 L 58 L Respiratory Rate 18 16 Blood Pressure 127/50 L 122/65 Pulse Oximetry 95 95 95 Oxygen Delivery Nasal Cannula Oxygen Flow Rate 2 03/05/24 22:35 03/06/24 06:12 Temperature 97.2 F L Pulse Rate 64 54 L Respiratory Rate 16 Blood Pressure 131/63 Pulse Oximetry 97 Oxygen Delivery Oxygen Flow Rate Intake/Output Intake/Output: Intake & Output 03/03/24 03/04/24 03/05/24 03/06/24 23:59 23:59 23:59 23:59 Intake Total 1820 1410 630 750 Output Total 1950 1600 650 850 Balance -130 -190 -20 -100 Meds/Results Medications: Active Medications Generic Name Dose Route Start Last Admin Trade Name Freq PRN Reason Stop Dose Admin Acetaminophen 650 mg 03/02/24 18:39 03/02/24 19:04 Acetaminophen 325 Mg Tablet PO 650 mg Q4H PRN Administration Mild Pain (1-3) or Fever Hydrocodone Bitart/Acetaminophen 1 tab 03/02/24 18:39 03/05/24 22:39 Hydrocodone/Acetaminophen (*Crx) 5-325 Mg Tablet PO 1 tab Q4H PRN Administration Pain Rated 4-6 Benzocaine 1 lozenge 03/04/24 11:47 03/04/24 12:16 Benzocaine/Menthol (*Bkc) 18 Ea Lozenge PO 1 lozenge PRN PRN Administration Sore Throat Calcitriol 0.25 mcg 03/02/24 20:00 Calcitriol 0.25 Mcg Capsule PO MoWeFr PRN AFTER DIALYSIS Calcium Carbonate 200 mg 03/03/24 09:00 03/05/24 08:07 Calcium Carbonate (Tums) 500 Mg (200 Mg Elemental) PO 200 mg DAILY QUINTON Administration Dexamethasone 6 mg 03/03/24 08:00 03/05/24 08:06 Dexamethasone 2 Mg Tablet PO 03/12/24 08:01 6 mg DAILY@0800 QUINTON Administration Enoxaparin Sodium 40 mg 03/03/24 09:00 03/05/24 08:06 Enoxaparin 40 Mg/0.4 Ml Syringe SUB-Q 40 mg DAILY QUINTON Administration Furosemide 40 mg 03/03/24 09:00 03/05/24 08:07 Furosemide 40 Mg Tablet PO 40 mg QAM QUINTON Administration Guaifenesin/Dextromethorphan 5 ml 03/04/24 14:11 Guaifenesin/Dextromethorphan 10 Ml Udc PO Q4H PRN Cough Remdesivir 100 mg in 250 mls @ 250 mls/hr 03/03/24 22:00 03/05/24 22:35 IVPB 03/06/24 22:59 250 mls/hr Q24H QUINTON Administration Levothyroxine Sodium 200 mcg 03/03/24 06:30 03/06/24 06:26 Levothyroxine Sodium 100 Mcg Tablet PO 200 mcg DAILY@0630 QUINTON Administration Loratadine 10 mg 03/03/24 09:00 03/05/24 08:07 Loratadine 10 Mg Tablet PO 10 mg QAM QUINTON Administration Multivitamins/Calcium 1 tablet 03/03/24 09:00 03/05/24 08:07 Therapeutic Multivitamins/Minerals Tab (*Bkc) PO 1 tablet DAILY QUINTON Administration Pregabalin 200 mg 03/03/24 09:00 03/05/24 17:00 Pregabalin (*Crx) 50 Mg Capsule PO 200 mg BID QUINTON Administration Primidone 50 mg 03/03/24 09:00 03/05/24 17:01 Primidone 50 Mg Tablet PO 50 mg BID QUINTON Administration Propranolol HCl 60 mg 03/02/24 21:35 03/05/24 22:35 Propranolol Hcl 60 Mg Capsule Cr PO 60 mg Q12HR QUINTON Administration Rosuvastatin Calcium 20 mg 03/03/24 09:00 03/05/24 08:07 Rosuvastatin 20 Mg Tablet PO 20 mg DAILY QUINTON Administration Spironolactone 50 mg 03/03/24 09:00 03/05/24 08:07 Spironolactone 50 Mg Tablet PO 50 mg DAILY QUINTON Administration Vitamin D 2,000 units 03/03/24 09:00 03/05/24 08:06 Cholecalciferol 1,000 Units Tablet PO 2,000 units DAILY QUINTON Administration Radiology Results: ITS Impressions Chest X-Ray 03/02/24 17:44 IMPRESSION: Mild interstitial edema versus senescent/interstitial change. Head CT 03/03/24 15:36 IMPRESSION: 1. Normal aging brain. No acute intracranial process. Cervical Spine CT 03/03/24 16:53 IMPRESSION: 1. Stable mild cervical spondylosis. 2. Anterior fusion procedure from C4 to C7. Labs Labs: Laboratory Results - last 24 hr 03/06/24 03/06/24 06:16 06:17 WBC 3.5 L RBC 4.41 Hgb 13.7 Hct 43.6 MCV 98.9 MCH 31.1 MCHC 31.4 L RDW 13.9 Plt Count 103 L MPV 11.1 H Immature Gran % (Auto) 0.3 Neut % (Auto) 34.4 L Lymph % (Auto) 48.0 H [place] % (Auto) 15.3 H Eos % (Auto) 1.4 Baso % (Auto) 0.6 Lymph # (Auto) 1.69 [place] # (Auto) 0.5 Eos # (Auto) 0.1 Baso # (Auto) 0.0 Abs Immat Gran (auto) 0.01 Absolute Neuts (auto) 1.2 L Absolute Nucleated RBC 0.000 Nucleated RBC % 0.0 % Immature Plt Fraction 5.4 PT 14.1 INR 1.1 Sodium 133 L Potassium 4.6 Chloride 101 Carbon Dioxide 33 H Anion Gap -1 L BUN 42 H Creatinine 2.10 H Estim Creat Clear Calc 29 Estimated GFR 23 L Glucose 77 Calcium 9.2 Total Bilirubin 0.4 Direct Bilirubin 0.0 AST 43 H ALT 35 Alkaline Phosphatase 74 Total Protein 6.0 L Albumin 3.2 L Quality VTE Prophylaxis VTE prophylaxis: pharmacologic ordered
[2024-03-06] MEDS: CALCIUM CARBONATE (TUMS) 500 MG (200 MG ELEMENTAL) PO (09:12)
[2024-03-06] MEDS: ENOXAPARIN 40 MG/0.4 ML SYRINGE SUB-Q (09:12)
[2024-03-06] MEDS: CHOLECALCIFEROL 1,000 UNITS TABLET 2000 UNITS PO (09:12)
[2024-03-06] MEDS: ROSUVASTATIN 20 MG TABLET PO (09:12)
[2024-03-06] MEDS: THERAPEUTIC MULTIVITAMINS/MINERALS TAB (*BKC) 1 TABLET PO (09:12)
[2024-03-06] MEDS: dexAMETHasone 2 MG TABLET 6 MG PO (09:13)
[2024-03-06] MEDS: SPIRONOLACTONE 50 MG TABLET PO (09:13)
[2024-03-06] MEDS: LORATADINE 10 MG TABLET PO (09:13)
[2024-03-06 09:14] VITALS: PULSE 60
[2024-03-06] MEDS: PREGABALIN (*CRX) 50 MG CAPSULE 200 MG PO ×2 (09:14→16:54)
[2024-03-06] MEDS: PRIMIDONE 50 MG TABLET PO ×2 (09:14→16:54)
[2024-03-06] MEDS: PROPRANOLOL HCL 60 MG CAPSULE CR PO ×2 (09:14→21:54)
[2024-03-06] MEDS: HYDROcodone/acetaminophen (*CRX) 5-325 MG TABLET 1 TAB PO ×4 (09:14→23:54)
[2024-03-06] MEDS: FUROSEMIDE 40 MG TABLET PO (09:14)
[2024-03-06 13:26] VITALS: BP 125/55; PULSE 61; RESP 18; TEMP 36.2; O2SAT 95
[2024-03-06 19:46] VITALS: BP 131/60; PULSE 56; RESP 18; TEMP 36.8; O2SAT 94
[2024-03-06 20:00] VITALS: O2SAT 94
[2024-03-06 21:54] VITALS: PULSE 64
[2024-03-06] MEDS: REMDESIVIR 100 MG/NS 250 ML 100 MG/250 ML BAG 250 MG IVPB (21:55)
[2024-03-07 04:52] VITALS: BP 151/61; PULSE 58; RESP 18; TEMP 36.6; O2SAT 100
[2024-03-07] MEDS: LEVOTHYROXINE SODIUM 100 MCG TABLET 200 MCG PO (06:15)
[2024-03-07 06:22] LABS: Basophils Percent Auto 0.3 % (0.2-1.2); Eosinophils Percent Auto 0.8 % (0-4.4); Hematocrit 42.1 % (37.0-47.0); Hemoglobin 13.6 g/dL (12.0-15.0); Immature Platelet Fraction Pct 4.9 % (0.9-11.2); Lymphocytes Absolute Auto 1.62 K/mm3 (0.9-3.2); Lymphocytes Percent Auto 44.9 % (18.3-44.2); Mean Corpuscular HGB Conc 32.3 g/dl (32-36); Mean Corpuscular Hemoglobin 31.1 pg (26-34); Mean Corpuscular Volume 96.3 fl (80-100); Mean Platelet Volume 11.4 fl (7.4-10.4); Monocytes Absolute Auto 0.7 K/mm3 (0.1-0.6); Monocytes Percent Auto 18.6 % (2.6-8.5); Neutrophils Absolute Auto 1.3 K/mm3 (1.3-6.7); Neutrophils Percent Auto 35.4 % (45.5-73.1); Platelet Count Result 113 k/mm3 (150-375); Red Blood Count 4.37 M/mm3 (4.2-5.4); Red Cell Distribution Width 13.7 % (11.5-14.5); White Blood Count 3.6 K/mm3 (4.5-10.0)
[2024-03-07 06:29] LABS: Alanine Aminotransferase 42 U/L (6-35); Albumin Level 3.2 g/dL (3.5-5.1); Alkaline Phosphatase 61 U/L (38-126); Anion Gap -1 mmol/L (4-12); Aspartate Amino Transferase 50 U/L (14-36); Bilirubin,Total 0.5 mg/dL (0.2-1.3); Blood Urea Nitrogen 48 mg/dL (7-17); Calcium 9.5 mg/dL (8.4-10.2); Carbon Dioxide 36 mmol/L (22-30); Chloride 102 mmol/L (98-107); Estimated CRCL calculation 32 ml/min; Estimated Glomerular Filt Rate 26; Glucose 66 mg/dL (65-110); Potassium 4.3 mmol/L (3.4-5.0); Sodium 137 mmol/L (137-145)
[2024-03-07] MEDS: ROSUVASTATIN 20 MG TABLET PO (08:36)
[2024-03-07] MEDS: ENOXAPARIN 40 MG/0.4 ML SYRINGE SUB-Q (08:36)
[2024-03-07] MEDS: FUROSEMIDE 40 MG TABLET PO (08:36)
[2024-03-07] MEDS: SPIRONOLACTONE 50 MG TABLET PO (08:36)
[2024-03-07] MEDS: THERAPEUTIC MULTIVITAMINS/MINERALS TAB (*BKC) 1 TABLET PO (08:36)
[2024-03-07] MEDS: PRIMIDONE 50 MG TABLET PO ×2 (08:37→16:51)
[2024-03-07] MEDS: LORATADINE 10 MG TABLET PO (08:37)
[2024-03-07] MEDS: HYDROcodone/acetaminophen (*CRX) 5-325 MG TABLET 1 TAB PO ×2 (08:37→13:34)
[2024-03-07 08:38] VITALS: PULSE 60
[2024-03-07] MEDS: CHOLECALCIFEROL 1,000 UNITS TABLET 2000 UNITS PO (08:38)
[2024-03-07] MEDS: PROPRANOLOL HCL 60 MG CAPSULE CR PO ×2 (08:38→21:27)
[2024-03-07] MEDS: dexAMETHasone 2 MG TABLET 6 MG PO (08:38)
[2024-03-07] MEDS: PREGABALIN (*CRX) 50 MG CAPSULE 200 MG PO ×2 (08:38→16:51)
[2024-03-07] MEDS: CALCIUM CARBONATE (TUMS) 500 MG (200 MG ELEMENTAL) PO (08:38)
[2024-03-07 08:39] VITALS: O2SAT 95
--- NOTE | 2024-03-07 13:59 | P.PNIM_ITS ---
Progress Note: A&P Assessment and Plan (1) Generalized weakness: Code(s): R53.1 - Weakness Status: Acute Assessment and Plan: Limited mobility at baseline due to bone on bone arthritis in her right knee and according to her daughter she really only leaves her bedroom to go to the bathroom and back. The last several days she has been feeling increasingly weak from baseline and she was so weak prior to admission that she could not even get herself up off of the toilet. - Viral panel: Covid positive - UA unremarkable - Chest XR: Mild interstitial edema versus senescent/interstitial change. - PT/OT PT/OT was recommending SNF, however patient was against placement- but agreeable now awaiting placement continue workign with PT/OT (2) COVID-19: Code(s): U07.1 - COVID-19 Status: Acute Assessment and Plan: Reports weakness, generalized malaise, body aches, headache, sore throat, and cough which is occasionally productive of yellow sputum. - Viral panel: Covid positive - Chest XR: Mild interstitial edema versus senescent/interstitial change. - Pt is a candidate for Remdesivir and Dexamethasone, continue treatment according to suggested guidelines. Remdesivir 200 mg IV x1, then 100 mg IV x4 days, dexamethasone 6 mg IV daily x 10 days, or until discharge - Bronchodilators - Currently on her baseline oxygen supplementation of 2L NC. Oxygen via NC; wean as tolerated. Keep spO2 greater than 91% - Place in COVID19 isolation precautions, cardiac monitoring, and continuous pulse ox - Monitor serum electrolytes, CRP, Lactic acid, troponin, CBC, WBC, temperature curve and follow cultures IS ordered (3) Headache: Code(s): R51.9 - Headache, unspecified Status: Acute Assessment and Plan: Patient endorsing a headache that worsens with neck movement. She states that she has had falls in the past, unable to state when her most recent fall was. Not on any anticoagulation. Neuro exam negative. - Head CT: Normal aging brain. No acute intracranial process. - C spine CT: Stable mild cervical spondylosis. Anterior fusion procedure from C4-C7. - analgesics (4) Chronic respiratory failure with hypoxia, on home oxygen therapy: Code(s): J96.11 - Chronic respiratory failure with hypoxia; Z99.81 - Dependence on supplemental oxygen Status: Acute Assessment and Plan: Remains on baseline 2 L NC. (5) Chronic obstructive pulmonary disease: Code(s): J44.9 - Chronic obstructive pulmonary disease, unspecified Status: Acute Assessment and Plan: Chronic, does not appear in acute exacerbation. - Monitor (6) Chronic kidney disease, stage 4 (severe): Code(s): N18.4 - Chronic kidney disease, stage 4 (severe) Status: Acute Assessment and Plan: Follows with nephrology, Dr. Penaloza. Last seen 12/17/23. AV shunt placement was attempted for possible dialysis, however this failed. - BUN/Cr 39/2.3 on am labs - Continue to monitor renal function - Avoid nephrotoxic medications - Renally dose medications (7) Hypothyroidism, unspecified: Qualifiers: Hypothyroidism type: unspecified Qualified Code(s): E03.9 - Hypothyroidism, unspecified Code(s): E03.9 - Hypothyroidism, unspecified Status: Acute Assessment and Plan: Chronic, continue home medications - Synthroid 200 mg daily, dose last adjusted on 02/26 by PCP (8) Hypertension: Code(s): I10 - Essential (primary) hypertension Status: Acute Assessment and Plan: Chronic, continue home medications - propranolol 60 mg daily - lasix 40 mg daily - spironolactone 50 mg daily - monitor (9) Hyperlipidemia, unspecified: Qualifiers: Hyperlipidemia type: mixed hyperlipidemia Qualified Code(s): E78.2 - Mixed hyperlipidemia Code(s): E78.5 - Hyperlipidemia, unspecified Status: Acute Assessment and Plan: Chronic, continue home medications - rosuvastatin 20 mg daily Time Spent With Patient Time with patient: Greater than 35 minutes Subjective Date/time seen: 03/07/24 13:59 Interval history: 73-year-old female with chronic hypoxic respiratory failure on home oxygen, chronic obstructive pulmonary disease, chronic kidney disease stage 4, hypertension, hyperlipidemia, arthritis, hypothyroidism, and other comorbidities who presented to the emergency department via EMS from home for evaluation of weakness. Patient is pleasant working with PT in getting up to her chair. She states that she feels slightly short of breath and has a worsening cough, but denies chest pain, palpitations, nausea/vomiting and abdominal pain. She continues to endorse pain throughout. Discussed with her that pain management outpatient would be beneficial for her chronic symptoms. PT/OT was originally recommending SNF, however patient is against placement. She states that she will not go SNF but is okay with home health if necessary at time of discharge. Care coordination is following. assuming care. Pt is back to her baseline but doesnot want to go home as her daughter is concerned that might get covid as well plus pt is agreeable now to try rehab for strength. care coordination is working to arrange that. 03/06- awaiting placement -care coordination following. supportive care 03/07- seen and examined. Tired today but overall feeling ok. Still waiting for insurance auth for rehab. and daughter both have covid now-and in the hospital now. Review of Systems Review of Systems: 12 systems were reviewed and are negativ e except for as per HPI. All systems reviewed & are unremarkable except as noted in HPI and below Exam Narrative: General: female in no acute respiratory distress who is nontoxic appearing, lying semi recumbent in bed. HEENT: Normocephalic. Atraumatic. Extraocular movement intact. Sclera clear and anicteric. No facial asymmetry. Chest: Lungs are diminished to auscultation bilaterally with slight wheezing. No crackles. CV: Heart was regular rate and rhythm. S1-S2. No murmurs, gallops, or rubs. Abd: Abdomen was soft. Nontender. Nondistended. Positive bowel sounds. No organomegaly or masses. Ext: No clubbing, cyanosis, or edema. 2+ DP pulses bilaterally. Neuro: Patient is alert and oriented x4. Cranial nerves 2-12 are intact. Speech is clear. Objective Data Vital Signs Vital Signs: Vital Signs - 24 hr 03/06/24 19:46 03/06/24 20:00 03/06/24 21:54 Temperature 98.2 F Pulse Rate 56 L 64 Respiratory Rate 18 Blood Pressure 131/60 Pulse Oximetry 94 94 Oxygen Delivery Nasal Cannula Oxygen Flow Rate 2 Fraction of Inspired Oxygen 03/07/24 04:52 03/07/24 08:38 03/07/24 08:39 Temperature 97.8 F Pulse Rate 58 L 60 Respiratory Rate 18 Blood Pressure 151/61 H Pulse Oximetry 100 95 Oxygen Delivery Nasal Cannula Oxygen Flow Rate 2 Fraction of Inspired Oxygen 28 Intake/Output Intake/Output: Intake & Output 03/04/24 03/05/24 03/06/24 03/07/24 23:59 23:59 23:59 23:59 Intake Total 1685 924 1252 908 Output Total 0205 532 3241 375 Balance -190 230 -280 533 Meds/Results Medications: Active Medications Generic Name Dose Route Start Last Admin Trade Name Freq PRN Reason Stop Dose Admin Acetaminophen 650 mg 03/02/24 18:39 03/02/24 19:04 Acetaminophen 325 Mg Tablet PO 650 mg Q4H PRN Administration Mild Pain (1-3) or Fever Hydrocodone Bitart/Acetaminophen 1 tab 03/02/24 18:39 03/07/24 13:34 Hydrocodone/Acetaminophen (*Crx) 5-325 Mg Tablet PO 1 tab Q4H PRN Administration Pain Rated 4-6 Benzocaine 1 lozenge 03/04/24 11:47 03/04/24 12:16 Benzocaine/Menthol (*Bkc) 18 Ea Lozenge PO 1 lozenge PRN PRN Administration Sore Throat Calcitriol 0.25 mcg 03/02/24 20:00 Calcitriol 0.25 Mcg Capsule PO MoWeFr PRN AFTER DIALYSIS Calcium Carbonate 200 mg 03/03/24 09:00 03/07/24 08:38 Calcium Carbonate (Tums) 500 Mg (200 Mg Elemental) PO 200 mg DAILY QUINTON Administration Dexamethasone 6 mg 03/03/24 08:00 03/07/24 08:38 Dexamethasone 2 Mg Tablet PO 03/12/24 08:01 6 mg DAILY@0800 QUINTON Administration Enoxaparin Sodium 40 mg 03/03/24 09:00 03/07/24 08:36 Enoxaparin 40 Mg/0.4 Ml Syringe SUB-Q 40 mg DAILY QUINTON Administration Furosemide 40 mg 03/03/24 09:00 03/07/24 08:36 Furosemide 40 Mg Tablet PO 40 mg QAM QUINTON Administration Guaifenesin/Dextromethorphan 5 ml 03/04/24 14:11 Guaifenesin/Dextromethorphan 10 Ml Udc PO Q4H PRN Cough Levothyroxine Sodium 200 mcg 03/03/24 06:30 03/07/24 06:15 Levothyroxine Sodium 100 Mcg Tablet PO 200 mcg DAILY@0630 QUINTON Administration Loratadine 10 mg 03/03/24 09:00 03/07/24 08:37 Loratadine 10 Mg Tablet PO 10 mg QAM QUINTON Administration Multivitamins/Calcium 1 tablet 03/03/24 09:00 03/07/24 08:36 Therapeutic Multivitamins/Minerals Tab (*Bkc) PO 1 tablet DAILY QUINTON Administration Pregabalin 200 mg 03/03/24 09:00 03/07/24 08:38 Pregabalin (*Crx) 50 Mg Capsule PO 200 mg BID QUINTON Administration Primidone 50 mg 03/03/24 09:00 03/07/24 08:37 Primidone 50 Mg Tablet PO 50 mg BID QUINTON Administration Propranolol HCl 60 mg 03/02/24 21:35 03/07/24 08:38 Propranolol Hcl 60 Mg Capsule Cr PO 60 mg Q12HR QUINTON Administration Rosuvastatin Calcium 20 mg 03/03/24 09:00 03/07/24 08:36 Rosuvastatin 20 Mg Tablet PO 20 mg DAILY QUINTON Administration Spironolactone 50 mg 03/03/24 09:00 03/07/24 08:36 Spironolactone 50 Mg Tablet PO 50 mg DAILY QUINTON Administration Vitamin D 2,000 units 03/03/24 09:00 03/07/24 08:38 Cholecalciferol 1,000 Units Tablet PO 2,000 units DAILY QUINTON Administration Radiology Results: ITS Impressions Chest X-Ray 03/02/24 17:44 IMPRESSION: Mild interstitial edema versus senescent/interstitial change. Head CT 03/03/24 15:36 IMPRESSION: 1. Normal aging brain. No acute intracranial process. Cervical Spine CT 03/03/24 16:53 IMPRESSION: 1. Stable mild cervical spondylosis. 2. Anterior fusion procedure from C4 to C7. Labs Labs: Laboratory Results - last 24 hr 03/07/24 05:55 WBC 3.6 L RBC 4.37 Hgb 13.6 Hct 42.1 MCV 96.3 MCH 31.1 MCHC 32.3 RDW 13.7 Plt Count 113 L MPV 11.4 H Immature Gran % (Auto) 0.0 Neut % (Auto) 35.4 L Lymph % (Auto) 44.9 H [place] % (Auto) 18.6 H Eos % (Auto) 0.8 Baso % (Auto) 0.3 Lymph # (Auto) 1.62 [place] # (Auto) 0.7 H Eos # (Auto) 0.0 Baso # (Auto) 0.0 Abs Immat Gran (auto) 0.00 Absolute Neuts (auto) 1.3 Absolute Nucleated RBC 0.000 Nucleated RBC % 0.0 % Immature Plt Fraction 4.9 Sodium 137 Potassium 4.3 Chloride 102 Carbon Dioxide 36 H Anion Gap -1 L BUN 48 H Creatinine 1.90 H Estim Creat Clear Calc 32 Estimated GFR 26 L Glucose 66 Calcium 9.5 Total Bilirubin 0.5 AST 50 H ALT 42 H Alkaline Phosphatase 61 Total Protein 6.0 L Albumin 3.2 L Quality VTE Prophylaxis VTE prophylaxis: pharmacologic ordered
[2024-03-07 14:00] VITALS: BP 139/55; PULSE 62; RESP 16; TEMP 36.3; O2SAT 91
--- OUTSIDE RECORDS SUMMARY | 2024-03-07 14:11 | XMS_ITS | Encounter Summary ---
Author Organization [facility] Healthcare Address [address] [place] [address] Care Team Providers Care Clinical Cytogeneticist Name Role Phone Gaudencio Miranda MD Primary Care Provider [phone] Herberth Rodgers MD Unavailable [phone] Encounter Details Date Type Department Care Team (Late st Contact Info) Description 05/22/2023 Telephone [facility] Medical Group Pulmonology [address] [facility] [address] [place] [phone] Uma Gloria RN Social History Tobacco Use Types Packs/Day Years Used Date Smoking Tobacco: Former Cigarettes 2 40 1 976 - 2016 Smokeless Tobacco: Never AUDIT-C Answer Date Recorded Q1: How often do you have a drink containing alc ohol? Never 05/03/2021 Average Number of Drinks Not on file 022 Frequency of Binge Drinking Not on file 04/19 Comments Unknown Sex and Gender Information Value Date Recorded Sex Assigned at Not on file Legal Sex Female 12:59 AM PSYCHOLOGY FELLOW Gender Identity Not on file Sexual Orientation Not on file documented as of this encounter Miscellaneous Notes * Telephone Encounter - Uma Gloria RN - 05/22/2023 4:02 PM PSYCHOLOGY FELLOW Received 6mwt results from Kristen; pt requires 1 at rest and 2 with activity. Pt currently has home O2 with [employer]. Will update order during f/u appt which is scheduled for 05/27. HOLOGY FELLOW documented in this encounter Plan of Treatment Not on file documented as of this encounter Visit Diagnoses Not on filedocumented in this encounter Care Teams Clinical Cytogeneticist Relationship Specialty Start Date End Date Gaudencio Miranda MD [address] [place] [address] PCP - General 07/25/16 Herberth Rodgers MD [address] [facility] [address] [address] Surgeon Surgery 02/24/21 documented as of this encounter
--- OUTSIDE RECORDS SUMMARY | 2024-03-07 14:11 | XMS_ITS | Encounter Summary ---
Author Organization [facility] Healthcare Address [address] [place] [address] Care Team Providers Care Restaurant Line Server Name Role Phone Gaudencio Miranda MD Primary Care Provider [phone] Herberth Rodgers MD Unavailable [phone] Reason for Referral * MRI/CAT/PET Scan (Routine) - Closed Specialty Diagnoses / Procedures Referred By Mallory valentino Referred To Contact Radiology Diagnoses Lung nodules Procedures CT Chest WO Contrast Padmini Trinh MD [facility] [facility] [address] [place] [address] Phone: tel: fax: [address] [phone] Referral ID Status Reason Start Date Expiration Date Visits Re quested Visits Authorized [id number] Closed 11/27/2022 12/27/2023 1 1 OR LOAN OFFICER Reason for Visit * MRI/CAT/PET Scan (Routine) - Closed Specialty Diagnoses / Procedures Referred By Mallory t Referred To Contact Radiology Diagnoses Lung nodules Procedures CT Chest WO Contrast Padmini Trinh MD [address] [facility] [address] [place] [address] Phone: tel: fax: [address] [phone] Referral ID Status Reason Start Date Expiration Date Visits Re quested Visits Authorized [id number] Closed 11/27/2022 12/27/2023 1 1 Encounter Details Date Type Department Care Team (Latest Contact Info) Description 05/18/2023 12:30 PM SENIOR LOAN OFFICER - 05/18/2023 11:59 PM SENIOR LOAN OFFICER Hospital Encounter [facility] [address] [place] [address] Lung nodules Discharge Disposition: Discharge to home or self care Social History Tobacco Use Types Packs/Day Years Used Date Smoking Tobacco: Former Cigarettes 2 40 1 976 - 2015 Smokeless Tobacco: Never AUDIT-C Answer Date Recorded Q1: How often do you have a drink containing alc ohol? Never 05/03/2021 Average Number of Drinks Not on file 022 Frequency of Binge Drinking Not on file 04/19 Comments Unknown Sex and Gender Information Value Date Recorded Sex Assigned at Not on file Legal Sex Female 12:59 AM SENIOR LOAN OFFICER Gender Identity Not on file Sexual Orientation Not on file documented as of this encounter Medications at Time of Discharge calcitRIOL (ROCALTROL) 0.25 mcg capsule Take 1 capsule (0.25 mcg total) by mouth every other day --08/30/2020 cholecalciferol (VITAMIN D-3) 2000 unit tablet Take 1 tablet (2,000 Units total) by mouth daily DULoxetine DR (CYMBALTA) 60 mg capsule Take 1 capsule (60 mg total) by mouth nightly 11/11/2020 famotidine (PEPCID) 10 mg tablet Take 1 tablet (10 mg total) by mouth 2 (two) times a day fexofenadine (DEVAUGHN) 180 mg tablet Take 1 tablet (180 mg total) by mouth daily as needed 0.5 tablet bid furosemide (LASIX) 40 mg tablet Take 1.5 tablets (60 mg total) by mouth nightly 45 tablet 02/27/2021 HYDROcodone-aceta minophen (NORCO) 5-325 mg per tablet Take 1 tablet by mouth every 6 hours levothyroxine (SYNTHROID) 112 mcg tablet 03/13/2023 multivitamin with minerals tablet Take 1 tablet by mouth 2 (two) times a day pregabalin (LYRICA) 200 mg capsule Take 1 capsule (200 mg total) by mouth 2 (two) times a day 01/24/2021 primidone (MYSOLINE) 50 mg tablet Take 1 tablet (50 mg total) by mouth 2 (two) times a day 12/27/2020 propranoloL (INDERAL) 60 mg tablet Take 1 tablet (60 mg total) by mouth 2 times daily rosuvastatin (CRESTOR) 10 mg tablet Take 2 tablets (20 mg total) by mouth daily rosuvastatin (CRESTOR) 20 mg tablet 03/13/2023 spironolactone (ALDACTONE) 50 mg tablet 03/22/2021 albuterol HFA (Ventolin HFA) 90 mcg/actuation inhalerIndication s:Chronic obstructive pulmonary disease, unspecified COPD type (HCC) Inhale 2 puffs every 4 (four) hours as needed for wheezing or shortness of breath 18 g 5 06/26/2022 4 levothyroxine (SYNTHROID) 200 mcg tablet Take 1 tablet (200 mcg total) by mouth daily 4 fluticasone-umecl idin-vilanter (Trelegy Ellipta) 100-62.5-25 mcg inhalerIndication s:Chronic obstructive pulmonary disease, unspecified COPD type (HCC) Inhale 1 puff daily 1 each 3 03/28/2021 4 documented as of this encounter Discharge Disposition Disposition Code Departure Means Destination Discharge to home or self care documented in this encounter Plan of Treatment Not on file documented as of this encounter Procedures Procedure Name Priority Date/Time Associated Diagnosis Comments CT CHEST WO CONTRAST Schedule Routine, Read Routine (OP Routine) 05/18/2023 1:04 PM SENIOR LOAN OFFICER Lung nodules documented in this encounter Results * CT Chest WO Contrast (05/18/2023 1:04 PM SENIOR LOAN OFFICER) Anatomical Region Laterality Modality Body N/A Computed Tomogra phy 05/20/2023 3:20 PM SENIOR LOAN OFFICER Addenda Addendum by Son Proctor MD on 08/07/2023 3:20 PM CDT ADDENDUM: This addendum report supersedes the original report dated 05/18/2023 Automated exposure control was used as a dose optimization technique for this examination. END OF ADDENDUM REPORT THIS IS AN ELECTRONICALLY VERIFIED FINAL REPORT 08/07/2023 3:20 PM ??Addendum Electronically signed by Son CRONIN D: ??07/27/2023 3:47 PM T: ??07/27/2023 3:47 PM Report ID: [id number] Reading Location: ??[id number] Narrative 05/20/2023 3:30 PM SENIOR LOAN OFFICER EXAM DESCRIPTION: CT CHEST WO CONTRAST . REASON FOR STUDY: lung nodule ?? Following pulmonary nodules seen on prior imaging 02/2021 ?? . TECHNIQUE: Multiplanar computed tomographic imaging of the thorax. COMPARISON: CT imaging dated November 17, 2021 and PET-CT imaging dated March 24, 2021. FINDINGS: Trachea is midline. ??Central airways are patent. ??No focal consolidation. ??There is evidence of prior granulomatous infection. ?? Ground-glass nodule right upper lobe image 63 unchanged. ??Nodule lingula image 114 unchanged. ??Nodule left lower lobe image 215 unchanged. ??Nodule right lower lobe image 254 unchanged. ??Masslike consolidation posteriorly and peripherally right lower lobe with associated pleural thickening unchanged. ?? No pleural effusions. Thoracic aorta atherosclerotic but normal in caliber. ??No suspicious mediastinal lymph nodes. ??Normal heart size. ??No pericardial effusion. IMPRESSION: No significant change. ??Follow-up imaging in 12 months recommended. THIS IS AN ELECTRONICALLY VERIFIED FINAL REPORT 05/20/2023 3:30 PM - Electronically signed by ??Son CRONIN D: ??05/20/2023 3:30 PM T: Report ID: [id number] Reading Location: ??[id number] Procedure Note Son Proctor MD - 05/20/2023 EXAM DESCRIPTION: CT CHEST WO CONTRAST . REASON FOR STUDY: lung nodule Following pulmonary nodules seen on prior imaging 02/2021 . TECHNIQUE: Multiplanar computed tomographic imaging of the thorax. COMPARISON: CT imaging dated November 17, 2021 and PET-CT imaging dated March 24, 2021. FINDINGS: Trachea is midline. Central airways are patent. No focal consolidation. There is evidence of prior granulomatous infection. Ground-glass nodule right upper lobe image 63 unchanged. Nodule lingulaimage 114 unchanged. Nodule left lower lobe image 215 unchanged. Nodule right lower lobe image 254 unchanged. Masslike consolidation posteriorly and peripherally right lower lobe with associated pleural thickeningunchanged. No pleural effusions. Thoracic aorta atherosclerotic but normal in caliber. No suspicious mediastinal lymph nodes. Normal heart size. No pericardial effusion. IMPRESSION: No significant change. Follow-up imaging in 12 months recommended. THIS IS AN ELECTRONICALLY VERIFIED FINAL REPORT 05/20/2023 3:30 PM - Electronically signed by Son Proctor M.D. SN T: Report ID: [id number] Reading Location: [place] [address] [place] Padmini Trinh MD IMG CT PROCEDURES Edited Resu lt - Final documented in this encounter Visit Diagnoses Diagnosis Lung nodules Other diseases of lung, not elsewhere classified documented in this encounter Care Teams Restaurant Line Server Relationship Specialty Start Date End Date Gaudencio Miranda MD [address] [place] [id number] PCP - General 07/25/16 Herberth Rodgers MD [address] [facility] [address] [place] [address] Surgeon Surgery 02/24/21 documented as of this encounter
--- OUTSIDE RECORDS SUMMARY | 2024-03-07 14:11 | XMS_ITS | Referral Summary ---
Author Organization [facility] Address [address] [place] [address] Care Team Providers Care Assignment Agent Name Role Phone Gaudencoi Miranda MD Primary Care Provider [phone] Herberth Rodgers MD Unavailable [phone] Allergies Active Allergy Reactions Criticality Noted Date Comments Aspirin Swelling Reaction: Swelling, Peanut Unknown 02/22/2021 Sulfa (Sulfonamide Antibiotics) Hives High Reaction: Hives, Medications HYDROcodone-acet aminophen (NORCO) 5-325 mg per tablet Take 1 tablet by mouth every 6 hours Active propranoloL (INDERAL) 60 mg tablet Take 1 tablet (60 mg total) by mouth 2 times daily Active rosuvastatin (CRESTOR) 10 mg tablet Take 2 tablets (20 mg total) by mouth daily Active DULoxetine DR (CYMBALTA) 60 mg capsule Take 1 capsule (60 mg total) by mouth nightly 1 Active cholecalciferol (VITAMIN D-3) 2000 unit tablet Take 1 tablet (2,000 Units total) by mouth daily Active calcitRIOL (ROCALTROL) 0.25 mcg capsule Take 1 capsule (0.25 mcg total) by mouth every other day M-W-F 1 Active multivitamin with minerals tablet Take 1 tablet by mouth 2 (two) times a day Active fexofenadine (DEVAUGHN) 180 mg tablet Take 1 tablet (180 mg total) by mouth daily as needed 0.5 tablet bid Active primidone (MYSOLINE) 50 mg tablet Take 1 tablet (50 mg total) by mouth 2 (two) times a day 1 Active pregabalin (LYRICA) 200 mg capsule Take 1 capsule (200 mg total) by mouth 2 (two) times a day 1 Active furosemide (LASIX) 40 mg tablet Take 1.5 tablets (60 mg total) by mouth nightly 45 tablet 1 Active spironolactone (ALDACTONE) 50 mg tablet 2 Active famotidine (PEPCID) 10 mg tablet Take 1 tablet (10 mg total) by mouth 2 (two) times a day Active levothyroxine (SYNTHROID) 112 mcg tablet 3 Active rosuvastatin (CRESTOR) 20 mg tablet 3 Active albuterol HFA (Ventolin HFA) 90 mcg/actuation inhalerIndicatio ns:Chronic obstructive pulmonary disease, unspecified COPD type ([facility]) Inhale 2 puffs every 4 (four) hours as needed for wheezing or shortness of breath 18 g 5 4 05/28/19 25 Active Active Problems Problem Noted Date Diagnosed Date Hypoxia 02/26/2021 Acute respiratory failure with hypoxia (CMS/HCC) 02/24/2021 Other chest pain 01/17/2021 PIERRE (dyspnea on exertion) 01/17/2021 Preop cardiovascular exam 01/17/2021 End stage renal disease (CMS/HCC) 12/23/2020 Overview (12/23/2020): Added automatically from request for surgery [id number] Assessment & Plan (12/27/2020 10:51 AM CDT): Patient has chronic kidney disease stage 5 not yet on dialysis. After exam and vein mapping of recommended a non dominant left arm brachiocephalic AV fistula creation. The procedure its indications and all risks were thoroughly explained. She understands and agrees to proceed. Other hyperlipidemia 12/01/2020 Assessment & Plan (12/27/2020 10:52 AM CDT): Hyperlipidemia controlled. Continue Crestor. Assessment & Plan (12/01/2020 2:31 PM CDT): Impression: Stable chronic hyperlipidemia. Plan: Medications reviewed I recommend continuing daily statin regimen as directed by patient's primary care physician. Chronic kidney disease, stage V (CMS/[facility]) 2019 Assessment & Plan (03/28/2021 1:41 PM FINANCIAL ANALYSIS MANAGER): Impression: Patient with recent left brachial cephalic AV fistula creation on 02/24/2021. Unfortunately her AV fistula has thrombosed however her chronic kidney disease remains stable per patient report. She does have an upcoming appointment with her dispensary clerk. I discussed further treatment with the patient and explained that she will need a AV graft creation when determine by her dispensary clerk that she will require hemodialysis. Plan: Patient states she would prefer to contact our office when determined that she will require hemodialysis for AV graft creation. Assessment & Plan (12/01/2020 2:30 PM CDT): Impression: Patient with worsening chronic kidney disease with anticipated need for dialysis in the near future. She is here to discuss hemodialysis access treatment options. She has had no prior vein mapping of her upper extremities. Plan: Will obtain bilateral upper extremity vein mapping for determination of long-term hemodialysis access treatment options. Patient follow-up in 2-3 weeks for discussion of test results and potential further surgical treatment options. 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 09/04/2013 Degeneration of intervertebral disc of cervical region 09/04/2013 Osteoarthritis of lumbar spine 09/04/2013 Postlaminectomy syndrome of cervical region 08/17 Postlaminectomy syndrome of lumbar region 2013 Fibromyalgia 09/04/2013 Lumbago 09/04/2013 Generalized osteoarthritis 09/04/2013 Chronic pain 09/04/2013 Chronic obstructive pulmonary disease Immunizations Name Administration Dates Next Due Hep B Vaccine 04/26/2020,03/01/2020 Influenza, Quadrivalent, Hig h Dose, Preservative Free, Intrr 12/02/2019 Influenza, Quadrivalent, Spl it, Preservative Free, Intramuscular 04/03/2015 Influenza, Trivalent, High D ose, Split, Preservative Free, Intramuscular 01/07/2019,12/20/2017,12/15/2016,01/12 Influenza, Trivalent, IM (MDV) 11/17/2018 Influenza, Trivalent, Preser vative Free, Intramuscular 03/19/2016 Influenza, Unspecified 12/25/2020 Pneumococcal Conjugate 7-Valent 11/17/2016 Pneumococcal Conjugate PCV 13 12/15/2016 Pneumococcal Polysaccharide PPV23 01/12/2014 Social History Tobacco Use Types Packs/Day Years [...] on file Legal Sex Female 12:59 AM FINANCIAL ANALYSIS MANAGER Gender Identity Not on file Sexual Orientation Not on file Last Filed Vital Signs Vital Sign Reading Time Taken Comments Blood Pressure 109/70 05/28/2023 3:04 PM CDT Pulse 67 05/28/2023 3:04 PM CDT Temperature 37.3 ??C (99.1 ??F) 05/28/2023 3:04 PM CD T Respiratory Rate 18 05/28/2023 3:04 PM CDT Oxygen Saturation 86% 05/28/2023 3:04 PM CDT Inhaled Oxygen Concentration - - Weight 134.3 kg (296 lb) 05/03/2021 8:10 AM FINANCIAL ANALYSIS MANAGER Height 170.2 cm (5' 7 ) 05/28/2023 3:04 PM CDT Body Mass Index 46.36 05/03/2021 8:10 AM FINANCIAL ANALYSIS MANAGER Plan of Treatment Not on file Medical Devices Implanted Type Area Block Hand Device Identifier Shelf Expiration Date Model / Serial / Lot Plate-03/19/2004 Implanted:03/19 (Quantity not on file) Plate Cervical-T horacic Spine Insurance MEDICARE SOLUTIONS MEDICARE SOLUTIONS MEDICARE SOLUTIONS Advance Directives For more information, please contact: [phone] Documents on File Type Date Recorded Patient Papier Mache' Molder Expl anation Power of Architectural Drafting Instructor 01/13/2021 11:26 AM * Full Code (Latest Code Status on File) Date Activated Date Inactivated Comments 05/03/2021 10:25 AM 05/04/2021 4:42 AM * Full Code Date Activated Date Inactivated Comments 02/24/2021 8:02 PM 02/28/2021 12:11 AM Care Teams Assignment Agent Relationship Specialty Start Date End Date Gaudencio Miranda MD [address] [place] [id number] PCP - General 07/25/16 Herberth Rodgers MD [address] [facility] [address] [address] Surgeon Surgery 02/24/21
--- OUTSIDE RECORDS SUMMARY | 2024-03-07 14:11 | XMS_ITS | Encounter Summary ---
Author Organization [facility] Address [address] [place] [address] Care Team Providers Care Supervisor Concrete Stone Fabricating Name Role Phone Gaudencio Miranda MD Primary Care Provider [phone] Herberth Rodgers MD Unavailable [phone] Encounter Details Date Type Department Care Team (Late st Contact Info) Description 06/23/2022 Telephone [facility] Pulmonology [address] [place] [address] Uma Gloria, CACHORRO Social History Tobacco Use Types Packs/Day Years [...] on file Legal Sex Female 12:59 AM EMISSION SPECIALIST Gender Identity Not on file Sexual Orientation Not on file documented as of this encounter Miscellaneous Notes * Telephone Encounter - Uma Gloria, CACHORRO - 06/23/2022 11:30 AM CDT Received 6mwt results from Tina; pt requires 1 with activity. Currently has home O2 with [employer]. No new orders sent at this time. documented in this encounter Plan of Treatment Not on file documented as of this encounter Visit Diagnoses Not on filedocumented in this encounter Care Teams Supervisor Concrete Stone Fabricating Relationship Specialty Start Date End Date Gaudencio Miranda MD [address] [place] [address] PCP - General 07/25/16 Herberth Rodgers MD [address] [facility] [address] [address] Surgeon Surgery 02/24/21 documented as of this encounter
--- OUTSIDE RECORDS SUMMARY | 2024-03-07 14:11 | XMS_ITS | Encounter Summary ---
Author Organization [facility] Address [address] [place] [address] Care Team Providers Care Academic Counselor Name Role Phone Gaudencio Miranda MD Primary Care Provider [phone] Herberth Rodgers MD Unavailable [phone] Reason for Visit * Reason Comments Follow-up Encounter Details Date Type Department Care Team (Late st Contact Info) Description 06/26/2022 3:00 PM CDT Office Visit [facility] Pulmonology [address] [place] [address] Padmini Trinh MD [address] [facility] [address] [place] [address] Chronic obstructive pulmonary disease, unspecified COPD type (HCC) (Primary Dx); Lung nodules; Chronic respiratory failure with hypoxia and hypercapnia (CMS/HCC) (HCC); Heart failure with preserved left ventricular function (HFpEF) (CMS/HCC) (HCC); Restrictive lung disease; Non-seasonal allergic rhinitis due to other allergic trigger Social History Tobacco Use Types Packs/Day Years [...] on file Legal Sex Female 12:59 AM CHURCH BUSINESS 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 Gender Identity Not on file Sexual Orientation Not on file documented as of this encounter Last Filed Vital Signs Vital Sign Reading Time Taken Comments Blood Pressure 108/61 06/26/2022 2:52 PM CDT Pulse 58 06/26/2022 2:52 PM CDT Temperature 36.9 ??C (98.4 ??F) 06/26/2022 2:52 PM CD T Respiratory Rate 18 06/26/2022 2:52 PM CDT Oxygen Saturation 90% 06/26/2022 2:52 PM CDT Inhaled Oxygen Concentration - - Weight - - Height 170.2 cm (5' 7 ) 06/26/2022 2:52 PM CDT Body Mass Index - - documented in this encounter Ordered Prescriptions Prescription Sig Dispense Quantity Refills Last Filled Start Date End Date albuterol HFA (Ventolin HFA) 90 mcg/actuation inhalerIndications :Chronic obstructive pulmonary disease, unspecified COPD type (HCC) Inhale 2 puffs every 4 (four) hours as needed for wheezing or shortness of breath 18 g 5 06/26/2022 4 documented in this encounter Progress Notes * Padmini Trinh MD - 06/26/2022 3:00 PM CDT Images from the original note were not included. PULMONARY CLINIC NOTE Visit Date: 06/26/2022 INTERVAL HISTORY: Presents today for follow-up of COPD/emphysema Pulmonary nodule Chronic respiratory failure with hypoxia Overall respiratory status stable Dyspnea with exertion No dyspnea at rest Intermittent wheezing and cough. Not using trelegy or albuterol. Uses oxygen 1-2 L. Has yearly rhinitis. Takes cherrie and phenylephrine nasal spray. HPI: Patient is a 71 y.o. female w/ PMH of CKD 5, h/o COPD, obesity his issues seen on hospital in earlyFebruary 2021 for postop hypoxia. She initially presented for AV fistula creation for anticipated start of dialysis. Postoperatively was hypoxic. Evaluation showed some possible emphysema/pulmonary edema as well as lung nodules. She was discharged on oxygen. Did have CT-guided biopsy in April 2021 of lower lobe lung nodule which did not reveal any malignancy infection or other obvious etiology Social History: 100 pack year history, quit 2016. Denies any alcohol or drugs. 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 Has pet cats. Review of Systems: Review of Systems OBJECTIVE: Physical Exam: Vitals: 06/26/22 1452 BP: 108/61 BP Location: Right arm Patient Position: Sitting Pulse: 58 Resp: 18 Temp: 36.9 ??C (98.4 ??F) SpO2: 90% Height: 170.2 cm (5' 7 ) Physical Exam Constitutional: In no acute distress, Respiratory: No tachypnea, no respiratory distress Musculoskeletal/Extremities: No Cyanosis Neuro/psych: No new Aphasia Data Review: Lung biopsy: Personally reviewed 11/20/21 CT Chest, lung nodules including lower lobe mass/nodule is stable. Pulmonary Function Testing: June 2022 PFT shows mild restriction with decreased FEV1 and FVC but normal ratio. DLCO is decreased. Could not ambulate but did desaturate even moving from chair to chair. May 2021 PFT shows severe obstruction and modreate restriction with decrease DLCO. ASSESSMENT AND PLAN Pulmonary nodules and lung mass Nodules mostly stable. Lung mass was not FDG avid on PET in March 2021. Did eventually undergo CT-guided biopsy of mass in April 2021 which was negative for malignancy Repeat imaging to follow COPD She is not using inhalers very often at all. Encouraged to use Trelegy even in a p.r.n. capacity. Will reorder albuterol p.r.n.. 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 Essentially does not get out of wheelchair than few steps. Counseled again at length about trying to improve/increase exercise and physical activity. Previously declined pulmonary rehab. H/o tobacco abuse 100 pack year history, quit 2016. CKD and HFpEF Follows with Nephrology. Continue Lasix. Keep euvolemic Padmini Trinh MD Pulmonary Medicine There may be syntax/grammatical errors in this note due to the use of voice recognition software. documented in this encounter Plan of Treatment Not on file documented as of this encounter Visit Diagnoses Diagnosis Chronic obstructive pulmonary disease, unspecified COPD type (HCC)- Primary Lung nodules Other diseases of lung, not elsewhere classified Chronic respiratory failure with hypoxia and hypercapnia (CMS/HCC) (HCC) Heart failure with preserved left ventricular function (HFpEF) (CMS/HCC) (HCC) Restrictive lung disease Other diseases of lung, not elsewhere classified Non-seasonal allergic rhinitis due to other allergic trigger documented in this encounter Care Teams Academic Counselor Relationship Specialty Start Date End Date Gaudencio Miranda MD [address] [place] [id number] PCP - General 07/25/16 Herberth Rodgers MD [address] [facility] [address] [address] Surgeon Surgery 02/24/21 documented as of this encounter
--- OUTSIDE RECORDS SUMMARY | 2024-03-07 14:11 | XMS_ITS | Clinical Summary ---
Author Organization [facility] Address [address] [place] [address] Care Team Providers Care Glass Block Installer Name Role Phone Gaudencio Miranda MD Primary Care Provider [phone] Herberth Rodgers MD Unavailable [phone] Allergies Active Allergy Reactions Criticality Noted [...] ns:Chronic obstructive pulmonary disease, unspecified COPD type ([facility]) Inhale 2 puffs every 4 (four) hours [...] (12/23/2020): Added automatically from request for surgery [id number] Assessment & Plan (12/27/2020 10:51 AM CDT): [...] care physician. Chronic kidney disease, stage V (CMS/[facility]) 2019 Assessment & Plan (03/28/2021 1:41 PM SPRAYER OPERATOR): Impression: Patient with recent left brachial cephalic AV fistula creation on 02/24/2021. Unfortunately her AV fistula has thrombosed however her chronic kidney disease remains stable per patient report. She does have an upcoming appointment with her medical assistant secretary. I discussed further treatment with the patient and explained that she will need a AV graft creation when determine by her medical assistant secretary that she will require hemodialysis. Plan: Patient [...] PCV 13 12/15/2016 Pneumococcal Polysaccharide PPV23 01/12/2014 Surgical History Surgery Date Site/Laterality Comments EYE SURGERY CATARACTS VAGINAL DELIVERY x2 SPINAL FUSION Spinal Arthrodesis - (Added by TW Conv) CERVICAL FUSION 03/19/2004 - 03/18/2005 Per daughter unknown levels and how many fused. BREAST SURGERY 03/19/1979 - 03/18/1980 Right lumpectomy AV FISTULA PLACEMENT 02/24/2021 Left Ligation & division large LT cephalic vein AV fistula tributary. TONSILLECTOMY AND ADENOIDECTOMY Medical History Medical History Date Comments Personal history of other di seases of the respiratory system History of chronic obstructi ve lung disease - (Added by TW Conv) Personal history of other di seases of the circulatory system History of rheumatic fever - (Added by TW Conv) Hypertension Hypothyroidism Headache Depression Obesity Dry skin Occasional tremors HANDSA NEW ME DICINE TO BE STARTED Wears partial dentures ?UPPER AN D LOWER PER DAUGHTER GERD (gastroesophageal reflux disease) Food intolerance PEANUTS Infectious viral hepatitis cirrh osis History of chest pain 12/2020 Previous s urgery cancelled R/T possible CP. Senior Java Programmer Analyst ruled out heart disease, testing negative. Lung disease COPD COPD (chronic obstructive pu lmonary disease) (HCC) Chronic kidney disease stage 4 Cirrhosis of liver (HCC) 02/24/2021 Acute respiratory failure wi th hypoxia (CMS/HCC) (HCC) 02/24/2021 Family History Medical History Relation Name Comments Heart attack Brother Cancer Father Pneumonia Mother Cancer Sister Relation Name Status Comments Brother (Age 50's) Father (Age 60's) Mother (Age 89) Sister (Age 69) Social History Tobacco Use Types Packs/Day Years [...] on file Legal Sex Female 12:59 AM SPRAYER OPERATOR Gender Identity Not on file Sexual Orientation Not on file Obstetrics History Last Filed Vital Signs Vital Sign Reading Time Taken Comments Blood Pressure 109/70 05/28/2023 3:04 PM CDT Pulse 67 05/28/2023 3:04 PM CDT Temperature 37.3 ??C (99.1 ??F) 05/28/2023 3:04 PM CD T Respiratory Rate 18 05/28/2023 3:04 PM CDT Oxygen Saturation 86% 05/28/2023 3:04 PM CDT Inhaled Oxygen Concentration - - Weight 134.3 kg (296 lb) 05/03/2021 8:10 AM SPRAYER OPERATOR Height 170.2 cm (5' 7 ) 05/28/2023 3:04 PM CDT Body Mass Index 46.36 05/03/2021 8:10 AM SPRAYER OPERATOR Plan of Treatment Health Maintenance Due Date Last Done Comments Colon Cancer Screening-Colonoscopy 1950 Depression Screening 1950 Hepatitis C Screening 1950 Osteoporosis Screening-Bone Density Scan 1950 DTaP/Tdap/Td Vaccine (1 - Tdap) 11/03/1959 Lung Cancer Screening 1998 Zoster Vaccine (1 of 2) 1998 Well Visit 65+ 2013 Fall Risk Assessment 05/03/2022 05/03/2021 Covid-19 Vaccine (2 - 2023-2 5 season) 2023 05/24/2020 Influenza Vaccine (#1) 2023 , 12/02/2019, 01/07/2019, Additional history exists Pneumococcal vaccine 65+ Completed 017, 11/17/2016, 01/12/2014 Medical Devices Implanted Type Area Sales Utility Representative Device Identifier Shelf Expiration Date Model / Serial / Lot Plate-03/19/2004 Implanted:03/19 (Quantity not on file) Plate Cervical-T horacic Spine Insurance MEDICARE SOLUTIONS [place] [id number] MEDICARE SOLUTIONS MEDICARE SOLUTIONS [place] [id number] Advance Directives For more information, please contact: [phone] Documents on File Type Date Recorded Patient Bindery Machine Operator Expl anation Power of Nurse Reviewer 01/13/2021 11:26 AM * Full Code (Latest Code Status on File) Date Activated Date Inactivated Comments 05/03/2021 10:25 AM 05/04/2021 4:42 AM * Full Code Date Activated Date Inactivated Comments 02/24/2021 8:02 PM 02/28/2021 12:11 AM Care Teams Glass Block Installer Relationship Specialty Start Date End Date Gaudencio Miranda MD [address] [place] [address] PCP - General 07/25/16 Herberth Rodgers MD [address] [facility] [address] [address] Surgeon Surgery 02/24/21
--- OUTSIDE RECORDS SUMMARY | 2024-03-07 14:11 | XMS_ITS | Encounter Summary ---
Author Organization [facility] Address [address] [place] [address]. [place], [place] [address] [place] [address] Care Team Providers Care Termite Control Representative Name Role Phone Unavailable Primary Care Provider Unavailabl e Encounter Details Date Type Department Care Team (Late st Contact Info) Description 05/23/1994 Abstract [place] [address] , Generic Conversion, Social History Tobacco Use Types Packs/Day Years Used Date Smoking Tobacco: Never Assessed Comments Unknown Sex and Gender Information Value Date Recorded Sex Assigned at Not on file Legal Sex Female 7:05 PM CDT Gender Identity Not on file Sexual Orientation Not on file documented as of this encounter Plan of Treatment Not on file documented as of this encounter Visit Diagnoses Not on filedocumented in this encounter
--- OUTSIDE RECORDS SUMMARY | 2024-03-07 14:11 | XMS_ITS | Encounter Summary ---
Author Organization [facility] Healthcare Address [address] [place] [address] Care Team Providers Care Quality Control Lab Tech Name Role Phone Gaudencio Miranda MD Primary Care Provider [phone] Herberth Rodgers MD Unavailable [phone] Reason for Referral * Procedure (Routine) - Authorized Specialty Diagnoses / Procedures Referred By Mallory valentino Referred To Contact Diagnoses Chronic obstructive pulmonary disease, unspecified COPD type (HCC) Procedures Pulmonary Function Test -[facility]; Full PFT in PFT Lab w/Stress Ox/6 Min Walk Test Padmini Trinh MD [facility] [facility] [address] [place] [address] Phone: tel: fax: Referral ID Status Reason Start Date Expiration Date V isits Requested Visits Authorized [id number] Authorized 05/28/2023 06/26/2024 1 1 * MRI/CAT/PET Scan (Routine) - Pending Review Specialty Diagnoses / Procedures Referred By Mallory valentino Referred To Contact Radiology Diagnoses Pulmonary nodule Procedures CT Chest WO Contrast Padmini Trinh MD [address] [facility] [address] [place] [address] Phone: tel: fax: [facility] [address] [place] [address] Referral ID Status Reason Start Date Expiration Date V isits Requested Visits Authorized [id number] Pending Review 05/28/2023 06/26/2024 1 1 Reason for Visit * Reason Comments Follow-up Encounter Details Date Type Department Care Team (Late st Contact Info) Description 05/28/2023 3:00 PM CDT Office Visit [facility] Pulmonology [address] [facility] [address] [place] [id number] Padmini Trinh MD [address] [facility] [address] [place] [address] Chronic obstructive pulmonary disease, unspecified COPD type (HCC) (Primary Dx); Chronic respiratory failure with hypoxia and hypercapnia (CMS/HCC) (HCC); Pulmonary nodule; Restrictive lung disease; Heart failure with preserved left ventricular function (HFpEF) (CMS/HCC) (HCC) Social History Tobacco Use Types Packs/Day Years [...] on file Legal Sex Female 12:59 AM MEDICAL RECORDS ASSISTANT Gender Identity Not on file Sexual Orientation [...] - Height 170.2 cm (5' 7 ) 05/28/2023 3:04 PM CDT Body Mass Index - - documented in this encounter Ordered Prescriptions Prescription Sig Dispense Quantity Refills Last Filled Start Date End Date albuterol HFA (Ventolin HFA) 90 mcg/actuation inhalerIndications :Chronic obstructive pulmonary disease, unspecified COPD type (HCC) Inhale 2 puffs every 4 (four) hours as needed for wheezing or shortness of breath 18 g 5 05/28/2023 5 documented in this encounter Progress Notes * Padmini Trinh MD - 05/28/2023 3:00 PM CDT Images from the original note were not included. PULMONARY CLINIC NOTE Visit Date: 05/28/2023 INTERVAL HISTORY: Presents today for follow-up of COPD/emphysema Pulmonary nodule Chronic respiratory failure with hypoxia Overall respiratory status stable/baseline She is stopped using Trelegy as she did not like it. Not really using albuterol either Dyspnea with exertion stable No dyspnea at rest. Not much wheezing and cough. New uses oxygen at home but does not leave the house very much/exert so not really using exertionaloxygen HPI: Patient is a 72 y.o. female w/ PMH of CKD 5, h/o COPD, obesity his issues seen on hospital in earlyWa2020 for postop hypoxia. She initially presented for AV fistula creation for anticipated start of dialysis. Postoperatively was hypoxic and fistula eventually collapsed/failed. 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 Has pet cats. Review of Systems: OBJECTIVE: Physical Exam: Vitals: 05/28/23 1504 BP: 109/70 BP Location: Left arm Patient Position: Sitting Pulse: 67 Resp: 18 Temp: 37.3 ??C (99.1 ??F) SpO2: (!) 86% Height: 170.2 cm (5' 7 ) Constitutional: obese/deconditioned Respiratory: No wheezing- mostly clear Data Review: Last CT Chest wo Contrast ([id number]) Results for orders placed during the hospital encounter of 05/18/23 CT Chest WO Contrast Narrative EXAM DESCRIPTION: CT CHEST WO CONTRAST . [...] right upper lobe image 63 unchanged. Nodule lingula image 114 unchanged. Nodule left lower lobe image 215 unchanged. Nodule right lower lobe image 254 unchanged. Masslike consolidation posteriorly and peripherally right lower lobe with associated pleural thickening unchanged. No pleural effusions. Thoracic aorta atherosclerotic but normal in caliber. No suspicious mediastinal lymph nodes. Normal heart size. No pericardial effusion. Impression No significant change. Follow-up imaging in 12 months recommended. THIS IS AN ELECTRONICALLY VERIFIED FINAL REPORT 05/20/2023 3:30 PM - Electronically signed by Son CRONIN T: Lung biopsy: Pulmonary Function Testin05/18/2023: Moderate obstructive ventilatory limitation with severe air trapping. Moderately decreased uncorrected DLCO June 2022 mild restriction with decreased FEV1 and FVC but normal ratio. DLCO is decreased. Could not ambulate but did desaturate even moving from chair to chair. May 2021 PFT shows severe obstruction and modreate restriction with decrease DLCO. ASSESSMENT AND PLAN Pulmonary nodules and lung mass Ground-glass and solid nodule was stable. Will repeat CT 1 year The masslike opacity in the right lower lobe is rounded atelectasis--was biopsied in 2021 COPD and asthma She is not using inhalers very often at all. Continue p.r.n. albuterol. Holding off on Trelegy she was not really using it regardless Repeat PFT Chronic respiratory failure hypoxia and hypercapnia Due to COPD, pulmonary edema/CKD, obesity hypoventilation, restrictive lung disease, etc Has home oxygen concentrator and portable tanks, not really using portable oxygen she does not movearound much or leave the house Restrictive lung disease with deconditioning and obesity hypoventilation This is primary otr company driver of respiratory issues. Essentially does not get out of wheelchair other thanfew steps. Previously declined pulmonary rehab. H/o tobacco abuse 100 pack year history, quit 2016. CKD and HFpEF Follows with Nephrology. Continue Lasix. Keep euvolemic Padmini Trinh MD Pulmonary Medicine There may be syntax/grammatical errors in this note due to the use of voice recognition software. documented in this encounter Plan of Treatment Scheduled Orders Name Type Priority Associated Diagnoses Orde r Schedule CT Chest WO Contrast Imaging Schedule Ro utine, Read Routine (OP Routine) Pulmonary nodule Expected: 05/19/2024, Expires: 11/27/2024 Pulmonary Function Test -[facility]; Full PFT in PFT Lab w/Stress Ox/6 Min Walk Test PFT Routine Chronic obstructive pulmonary disease, unspecified COPD type (HCC) Expected: 05/19/2024, Expires: 11/27/2024 documented as of this encounter Visit Diagnoses Diagnosis Chronic obstructive pulmonary disease, unspecified COPD type (HCC)- Primary Chronic respiratory failure with hypoxia and hypercapnia (CMS/HCC) (HCC) Pulmonary nodule Other diseases of lung, not elsewhere classified Restrictive lung disease Other diseases of lung, not elsewhere classified Heart failure with preserved left ventricular function (HFpEF) (CMS/HCC) (HCC) documented in this encounter Discontinued Medications Medication Sig Discontinue Reason Start Date End Da te levothyroxine (SYNTHROID) 200 mcg tablet Take 1 tablet (200 mcg total) by mouth daily 05/28/2023 [id number]-y ilanter (Trelegy Ellipta) 100-62.5-25 mcg inhalerIndications:Sewer Cleaner del obstructive pulmonary disease, unspecified COPD type (HCC) Inhale 1 puff daily Therapy completed 03/28/2021 05/28/2023 albuterol HFA (Ventolin HFA) 90 mcg/actuation inhalerIndications:Sewer Cleaner del obstructive pulmonary disease, unspecified COPD type (HCC) Inhale 2 puffs every 4 (four) hours as needed for wheezing or shortness of breath Reorder 06/26/2022 05/28/2023 documented as of this encounter Historical Medications * This list may reflect changes made after this encounter. Medication Sig Dispense Quantity Refills Last Filled Start D ate End Date rosuvastatin (CRESTOR) 20 mg tablet 03/13/2023 levothyroxine (SYNTHROID) 112 mcg tablet 03/13/2023 added in this encounter Care Teams Quality Control Lab Tech Relationship Specialty Start Date End Date Gaudencio Miranda MD [address] [place] [address] PCP - General 07/25/16 Herberth Rodgers MD [address] [facility] [address] [address] Surgeon Surgery 02/24/21 documented as of this encounter
--- OUTSIDE RECORDS SUMMARY | 2024-03-07 14:11 | XMS_ITS | Encounter Summary ---
Author Organization [facility] Healthcare Address [address] [place] [address] Care Team Providers Care Malt Liquors Sales Representative Name Role Phone Gaudencio Miranda MD Primary Care Provider [phone] Herberth Rodgers MD Unavailable Reason for Referral * Procedure (Routine) - Closed Specialty Diagnoses / Procedures Referred By Contac t Referred To Contact Diagnoses Chronic obstructive pulmonary disease, unspecified COPD type (HCC) Chronic respiratory failure with hypoxia and hypercapnia (CMS/HCC) (HCC) Procedures Pulmonary Function Test -[facility]; Full PFT in PFT Lab w/Stress Ox/6 Min Walk Test Padmini Trinh MD [facility] [address] [address] Phone: tel: fax: Referral ID Status Reason Start Date Expiration Date Visits Re quested Visits Authorized [id number] Closed 11/27/2022 12/27/2023 1 1 ENT RECORDS COORDINATOR Reason for Visit * Procedure (Routine) - Closed Specialty Diagnoses / Procedures Referred By Contac t Referred To Contact Diagnoses Chronic obstructive pulmonary disease, unspecified COPD type (HCC) Chronic respiratory failure with hypoxia and hypercapnia (CMS/HCC) (HCC) Procedures Pulmonary Function Test -[facility]; Full PFT in PFT Lab w/Stress Ox/6 Min Walk Test Padmini Trinh MD [address] [facility] [address] [place] [address] Phone: tel: fax: Referral ID Status Reason Start Date Expiration Date Visits Re quested Visits Authorized [id number] Closed 11/27/2022 12/27/2023 1 1 Encounter Details Date Type Department Care Team (Latest Contact Info) Description 05/18/2023 1:00 PM STUDENT RECORDS COORDINATOR - 05/18/2023 11:59 PM STUDENT RECORDS COORDINATOR Hospital Encounter [facility] Respiratory [address] [place] [address] Chronic obstructive pulmonary disease, unspecified COPD type (HCC); Chronic respiratory failure with hypoxia and hypercapnia (CMS/HCC) (HCC) Discharge Disposition: Discharge to home or self care Social History Tobacco Use Types Packs/Day Years Used Date Smoking Tobacco: Former Cigarettes 2 40 1 - 2015 Smokeless Tobacco: Never AUDIT-C Answer Date Recorded Q1: How often do you have a drink containing alc ohol? Never 05/03/2021 Average Number of Drinks Not on file 022 Frequency of Binge Drinking Not on file 04/19 Comments Unknown Sex and Gender Information Value Date Recorded Sex Assigned at Not on file Legal Sex Female 12:59 AM STUDENT RECORDS COORDINATOR Gender Identity Not on file Sexual Orientation [...] or self care documented in this encounter Progress Notes * Kristen Sosa, MEDICAL BILLER/CODER - 05/18/2023 1:05 PM CST PATIENT NON-AMBULATORY. PATIENT IS A FALL RISK: YELLOW BAND IN PLACE. TEST WAS PERFORMED WITH PATIENT EXERCISING ARMS AND LEGS WHILE SEATED IN WHEELCHAIR. PATIENT REQUIRED 1L/M NASAL CANNULA AT REST AND 2L/M NC WITH EXERTION PATIENT WEARS HOME OXYGEN - ARISTIDES IRIZARRYIED 05/18/23 7675 Resting Information Resting HR. 60 bpm Resting SPO2 87 % (RESTING ROOM AIR O2 SAT 87%. O2 TITRATED TO ACHIEVE SPO2 92% AT REST ON 1L/M NASAL CANNULA) Oxygen Setting ROOM AIR Ambulation Trials to Assess Desaturation to 88% Oxygen Setting #1 1L/M NASAL CANNULA SPO2 (%) #1 88 % (EXERCISING IN WHEELCHAIR ON 1L/M NC) Oxygen Setting #2 2L/M NASAL CANNULA SPO2 (%) #2 93 % (EXERCISING IN WHEELCHAIR ON 2L/M NC) Post Ambulation Assessment HR Post Assessment 68 bpm RR Post Assessment 20 breaths/m Post Assessment Recommendation 1L/M NASAL CANNULA AT REST AND 2L/M NASAL CANNULA WITH ACTIVITY $ Home O2 Assessment Yes ENT RECORDS COORDINATOR documented in this encounter Plan of Treatment Not on file documented as of this encounter Procedures Procedure Name Priority Date/Time Associated Diagnosis Comments PULMONARY FUNCTION TEST (PFT) Routine 05/18/2023 2:05 PM STUDENT RECORDS COORDINATOR Chronic obstructive pulmonary disease, unspecified COPD type (HCC) Chronic respiratory failure with hypoxia and hypercapnia (CMS/HCC) (HCC) documented in this encounter Results * Pulmonary Function Test - (05/18/2023 2:05 PM STUDENT RECORDS COORDINATOR) FVC POST 2.01 L 05/18/2023 4:57 PM [facility] FEV1 POST 1.41 L 05/18/2023 4:57 PM [facility] [id number] 69.95 % 05/18/2023 4:57 PM [facility] BHH73-04% POST 0.81 L/s 05/18/2023 4:57 PM [facility] PEF POST 3.69 L/s 05/18/2023 4:57 PM [facility] DLCOc SB 13.19 ml/(min*mm Hg) 05/18/2023 4:57 PM [facility] DLCO/VA PRE 4.32 ml/(min*mm Hg*L) 05/18/2023 4:57 PM [facility] VA 3.06 L 05/18/2023 4:57 PM [facility] FVC PRE 1.92 L 05/18/2023 4:57 PM [facility] FEV1 PRE 1.33 L 05/18/2023 4:57 PM [facility] [id number] 69.04 % 05/18/2023 4:57 PM [facility] OED10-29% PRE 0.73 L/s 05/18/2023 4:57 PM [facility] PEF PRE 4.86 L/s 05/18/2023 4:57 PM [facility] Anatomical Region Laterality Modality PFT 05/18/2023 1:08 PM STUDENT RECORDS COORDINATOR Impressions 05/23/2023 3:30 PM STUDENT RECORDS COORDINATOR Nonspecific ventilatory limitation suggestive of obstruction. ??Severe air trapping. ??Decreased uncorrected DLCO Electronically signed by Padmini Belcher 05/23/2023 3:30 PM STUDENT RECORDS COORDINATOR INTERPRETATION Please see technologist's comments mentioned in attached results report. SPIROMETRY: ?? FEV1/FVC ratio is normal FEV1 is decreased Forced vital capacity is decreased There is no significant response to bronchodilator administration. ??This does not preclude the use of bronchodilator therapy if clinically indicated. FLOW VOLUME LOOPS: Concave expiratory limb LUNG VOLUMES via N2 washout: Difficulty performing test and unable to achieve full dilution of nitrogen Total lung capacity is 108%, RV 178% DIFFUSION CAPACITY: DLCO unadjusted for Hb and COHb is 57% Padmini Trinh MD PFT ORDERABLES Final Result documented in this encounter Visit Diagnoses Diagnosis Chronic obstructive pulmonary disease, unspecified COPD type (HCC) Chronic respiratory failure with hypoxia and hypercapnia (CMS/HCC) (HCC) documented in this encounter Care Teams Malt Liquors Sales Representative Relationship Specialty Start Date End Date Gaudencio Miranda MD [address] [place] [address] PCP - General 07/25/16 Herberth Rodgers MD [address] [facility] [address] [address] Surgeon Surgery 02/24/21 documented as of this encounter
--- OUTSIDE RECORDS SUMMARY | 2024-03-07 14:11 | XMS_ITS | Clinical Summary ---
Author Organization [facility] Address [address] [place] [address]. [place], [place] [address] [place] [address] Care Team Providers Care Silo Painter Name Role Phone Unavailable Primary Care Provider Unavailabl e Social History Tobacco Use Types Packs/Day Years Used Date Smoking Tobacco: Never Assessed Comments Unknown Sex and Gender Information Value Date Recorded Sex Assigned at Not on file Legal Sex Female 7:05 PM CDT Gender Identity Not on file Sexual Orientation Not on file Plan of Treatment Health Maintenance Due Date Last Done Comments Colorectal Cancer Screening Colonoscopy (10 Years) 1948 Hepatitis C 1966 DTaP, Tdap and Td Vaccines ( 1 - Tdap) 11/03/1967 Zoster Vaccines (1 of 2) 1998 RSV Immunization or 60+ Years (1 - 1-dose 60+ series) 2008 Dexa Scan (General) 2013 Pneumococcal Vaccine: 65+ Ye ars (1 of 1 - PCV) 2013 COVID-19 Vaccine ( - 2023-2 5 season) 2023 Influenza Adult (#1) 2023 Meningococcal Vaccine Aged Out No josh bharati eligible based on patient's age to complete this topic RSV Immunizations Under 20 Months Aged Out No longer eligible based on patient's age to complete this topic
--- OUTSIDE RECORDS SUMMARY | 2024-03-07 14:11 | XMS_ITS | Encounter Summary ---
Author Organization [facility] Address [address] [place] [address]. [place], [place] [address] [place] [address] Care Team Providers Care Movement Assembly Final Inspector Name Role Phone Unavailable Primary Care Provider Unavailabl e Encounter Details Date Type Department Care Team (Late st Contact Info) Description 06/23/1992 [place] [address] , Generic Conversion, Social History Tobacco Use [...]
--- OUTSIDE RECORDS SUMMARY | 2024-03-07 14:11 | XMS_ITS | Encounter Summary ---
Author Organization [facility] Address [address] [place] [address]. [place], [place] [address] [place] [address] Care Team Providers Care Quality Engineer Name Role Phone Unavailable Primary Care Provider Unavailabl e Encounter Details Date Type Department Care Team (Late st Contact Info) Description 09/27/1992 Abstract [place] [address] , Generic Conversion, Social History Tobacco Use [...]
--- OUTSIDE RECORDS SUMMARY | 2024-03-07 14:11 | XMS_ITS | Encounter Summary ---
Author Organization [facility] Address [address] [place] [address] Care Team Providers Care Counselor Aid Name Role Phone Gaudencio Miranda MD Primary Care Provider [phone] Herberth Rodgers MD Unavailable [phone] Reason for Referral * MRI/CAT/PET Scan (Routine) - Closed Specialty Diagnoses / Procedures Referred By Mallory valentino Referred To Contact Radiology Diagnoses Lung nodules Procedures CT Chest WO Contrast Padmini Trinh [facility] [address] [place] [address] Phone: tel: fax: [facility] [address] [place] [address] Referral ID Status Reason Start Date Expiration Date Visits Re quested Visits Authorized [id number] Closed 11/27/2022 12/27/2023 1 1 * Procedure (Routine) - Closed Specialty Diagnoses / Procedures Referred By Mallory valentino Referred To Contact Diagnoses Chronic obstructive pulmonary disease, unspecified COPD type (HCC) Chronic respiratory failure with hypoxia and hypercapnia (CMS/HCC) (HCC) Procedures Pulmonary Function Test -[facility]; Full PFT in PFT Lab w/Stress Ox/6 Min Walk Test Padmini Trinh MD [address] [facility] [address] [address] [place] [address] Phone: tel: fax: Referral ID Status Reason Start Date Expiration Date Visits Re quested Visits Authorized [id number] Closed 11/27/2022 12/27/2023 1 1 Reason for Visit * Reason Comments Follow-up Encounter Details Date Type Department Care Team (Late st Contact Info) Description 11/27/2022 3:15 PM CDT Office Visit [facility] Pulmonology [address] [place] [address] Padmini Trinh MD [address] [facility] [address] [place] [address] Chronic obstructive pulmonary disease, unspecified COPD type [...] on file Legal Sex Female 12:59 AM BMET Gender Identity Not on file Sexual Orientation Not on file documented as of this encounter Last Filed Vital Signs Vital Sign Reading Time Taken Comments Blood Pressure 118/78 11/27/2022 2:50 PM CDT Pulse 64 11/27/2022 2:50 PM CDT Temperature 36.6 ??C (97.9 ??F) 11/27/2022 2:50 PM CD T Respiratory Rate 18 11/27/2022 2:50 PM CDT Oxygen Saturation 85% 11/27/2022 2:50 PM CDT Inhaled Oxygen Concentration - - Weight - - Height - - Body Mass Index - - documented in this encounter Patient Instructions * Attachments The following attachments cannot be sent through Care Everywhere. * Emphysema (Security Intern) (Iraqi) documented in this encounter Progress Notes * Padmini Trinh MD - 11/27/2022 3:15 PM CDT Images from the original note were not included. PULMONARY CLINIC NOTE Visit Date: 11/27/2022 INTERVAL HISTORY: Presents today for follow-up of COPD/emphysema Pulmonary nodule Chronic respiratory failure with hypoxia Overall respiratory status stable Dyspnea with exertion No dyspnea at rest. Not much wheezing and cough. Not using inhalers Uses oxygen 1-2 L. Has yearly rhinitis. Takes cherrie and phenylephrine nasal spray. HPI: Patient is a 72 y.o. female w/ PMH of CKD 5, h/o COPD, obesity his issues seen on hospital in earlyOk2020 for postop hypoxia. She initially presented for [...] Review of Systems: OBJECTIVE: Physical Exam: Vitals: 11/27/22 1450 BP: 118/78 BP Location: Left arm Patient Position: Sitting Pulse: 64 Resp: 18 Temp: 36.6 ??C (97.9 ??F) SpO2: (!) 85% Constitutional: obese/deconditioned Respiratory: No wheezing Data Review: Lung biopsy: Pulmonary Function Testing: June 2022 mild restriction with decreased FEV1 [...] using inhalers very often at all. Continue to use trelegy and albuterol prn. Repeat PFT Chronic respiratory failure hypoxia and hypercapnia Due to COPD, pulmonary edema/CKD, obesity hypoventilation, restrictive lung disease, etc She was a little bit hypoxic in clinic today but asymptomatic otherwise. She is not have her oxygenwith her. Advised her to use oxygen more regularly and check SpO2. 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 Essentially does not get out of wheelchair other than few steps. Previously declined pulmonary rehab. H/o tobacco abuse 100 pack year history, quit 2015. CKD and HFpEF Follows with Nephrology. Continue Lasix. Keep euvolemic Padmini Trinh MD Pulmonary Medicine There may be syntax/grammatical errors in this note due to the use of voice recognition software. documented in this encounter Plan of Treatment Not on file documented as of this encounter Results * Pulmonary Function Test - (05/18/2023 2:05 PM BMET) FVC POST 2.01 L 05/18/2023 4:57 PM [facility] FEV1 POST 1.41 L 05/18/2023 4:57 PM [facility] [id number] 69.95 % 05/18/2023 4:57 PM [facility] VTO78-21% POST 0.81 L/s 05/18/2023 4:57 PM [facility] PEF POST 3.69 L/s 05/18/2023 4:57 PM [facility] DLCOc SB 13.19 ml/(min*mm Hg) 05/18/2023 4:57 PM [facility] DLCO/VA PRE 4.32 ml/(min*mm Hg*L) 05/18/2023 4:57 PM [facility] VA 3.06 L 05/18/2023 4:57 PM [facility] FVC PRE 1.92 L 05/18/2023 4:57 PM [facility] FEV1 PRE 1.33 L 05/18/2023 4:57 PM [facility] [id number] 69.04 % 05/18/2023 4:57 PM [facility] FSI79-01% PRE 0.73 L/s 05/18/2023 4:57 PM [facility] PEF PRE 4.86 L/s 05/18/2023 4:57 PM [facility] Anatomical Region Laterality Modality PFT 05/18/2023 1:08 PM BMET Impressions 05/23/2023 3:30 PM BMET Nonspecific ventilatory limitation suggestive of obstruction. ??Severe air trapping. ??Decreased uncorrected DLCO Electronically signed by Padmini Trinh MD Narrative 05/23/2023 3:30 PM [facility] INTERPRETATION Please see technologist's comments mentioned in [...] unadjusted for Hb and COHb is 57% us Padmini Trinh MD PFT ORDERABLES Final Result * CT Chest WO Contrast (05/18/2023 1:04 PM BMET) Anatomical Region Laterality Modality Body N/A Computed Tomogra phy 05/20/2023 3:20 PM BMET Addenda Addendum by Son Proctor MD on 08/07/2023 3:20 PM CDT ADDENDUM: This addendum report supersedes the original report dated 05/18/2023 Automated exposure control was used as a dose optimization technique for this examination. END OF ADDENDUM REPORT THIS IS AN ELECTRONICALLY VERIFIED FINAL REPORT 08/07/2023 3:20 PM ??Addendum Electronically signed by Son Proctor M.D. SN D: ??07/27/2023 3:47 PM T: ??07/27/2023 3:47 PM Report ID: [id number] Reading Location: ??[id number] Narrative 05/20/2023 3:30 PM BMET EXAM DESCRIPTION: CT CHEST WO CONTRAST . [...] 3:30 PM - Electronically signed by ??Son Proctor M.D. SN D: ??05/20/2023 3:30 PM T: Report ID: [id number] Reading Location: ??[id number] Procedure Note Son Proctor MD - 05/20/2023 [...] - Electronically signed by Son CRONIN T: Report ID: [id number] Reading Location: [place] [address] Padmini Trinh MD IMG CT PROCEDURES Edited Resu lt - Final documented in this encounter Visit Diagnoses Diagnosis Chronic obstructive pulmonary disease, unspecified COPD type (HCC)- Primary Lung nodules Other diseases of lung, not elsewhere classified Chronic respiratory failure with hypoxia and hypercapnia (CMS/HCC) (HCC) Heart failure with preserved left ventricular function (HFpEF) (CMS/HCC) (HCC) Lung nodules Other diseases of lung, not elsewhere classified Chronic obstructive pulmonary disease, unspecified COPD type (HCC) Chronic respiratory failure with hypoxia and hypercapnia (CMS/HCC) (HCC) documented in this encounter Care Teams Counselor Aid Relationship Specialty Start Date End Date Gaudencio Miranda MD [address] [place] [id number] PCP - General 07/25/16 Herberth Rodgers MD [address] [facility] [address] [place] [address] Surgeon Surgery 02/24/21 documented as of this encounter
--- OUTSIDE RECORDS SUMMARY | 2024-03-07 14:12 | XMS_ITS | Encounter Summary ---
Author Organization [facility] Address [address] [place] [address] Care Team Providers Care Filler Sifter Machine Name Role Phone Gaudencio Miranda MD Primary Care Provider [phone] Herberth Rodgers MD Unavailable [phone] Encounter Details Date Type Department Care Team (Late st Contact Info) Description 04/29/2021 6:45 PM [facility] [address] [address] Pre-procedure lab exam Social History Tobacco Use Types Packs/Day Years Used Date Smoking Tobacco: Former Cigarettes 2 40 1 976 - 2016 Smokeless Tobacco: Never AUDIT-C Answer Date Recorded Q1: How often do you have a drink containing alc ohol? Never 02/24/2021 Average Number of Drinks Not on file 021 Q3: How often do you have si x or more drinks on one occasion? Never 02/24/2021 Comments Unknown Sex and Gender Information Value Date Recorded Sex Assigned at Not on file Legal Sex Female 12:59 AM [facility] Gender Identity Not on file Sexual Orientation Not on file documented as of this encounter Plan of Treatment Not on file documented as of this encounter Procedures Procedure Name Priority Date/Time Associated Diagnosis Comments COVID-19 CORONAVIRUS RNA Routine 04/29/2021 3:11 PM [facility] Pre-procedure lab exam documented in this encounter Results * COVID-19 Coronavirus RNA Nasopharyngeal (04/29/2021 3:11 PM [facility]) COVID-19 RNA Not Detected [facility] Comment: Interpretive Data Synonyms for this test include: PCR and NAAT . ??Testing performed by the [facility] Molecular Infectious Disease Laboratory. The 2019-Novel Coronavirus Assay (COVID-19) Real Time RT-PCR assay is for in vitro diagnostic use under FDA emergency use authorization only. A negative RT-PCR result does not preclude infection with COVID-19 and should not be used as the sole basis for treatment or other patient management decisions. ??Additional sample types have been validated according to CLIA regulations. ?? Current Interpretive Data was last revised on April 22, 2020. First COVID-19 test? No [facility] Employeed in healthcare? No [facility] status? No [facility] Group care resident? No [facility] Hospitalized? No [facility] Is patient in ICU? No [facility] Symptomatic as defined by CDC? No [facility] Nasopharyngeal 04/29/2021 3: 11 PM [facility] 04/29/2021 7:33 PM [facility] Narrative [facility] - 04/30/2021 3:28 AM [facility] What is the reason for testing?->Screening prior to scheduled??procedure or surgery??(Batched) us Padmini Trinh MD LAB MICROBIOLOGY - GENERAL OR DERABLES Final Result Performing Organization Address City/State/[facility] Co de Phone Number [facility] Department [place] [address] documented in this encounter Visit Diagnoses Diagnosis Pre-procedure lab exam Pre-procedural laboratory examination documented in this encounter Care Teams Filler Sifter Machine Relationship Specialty Start Date End Date Gaudencio Miranda MD [address] [place] [address] PCP - General 07/25/16 Herberth Rodgers MD [address] [address] Surgeon Surgery 02/24/21 documented as of this encounter
--- OUTSIDE RECORDS SUMMARY | 2024-03-07 14:12 | XMS_ITS | Encounter Summary ---
Author Organization [facility] Address [address] [place] [address] Care Team Providers Care Pastry Sous Chef Name Role Phone Gaudencio Miranda MD Primary Care Provider [phone] Herberth Rodgers MD Unavailable Reason for Referral * MRI/CAT/PET Scan (Routine) - Closed Specialty Diagnoses / Procedures Referred By Mallory valentino Referred To Contact Radiology Diagnoses Pulmonary nodule Procedures PET/CT FDG Skull to Thigh Padmini Trinh MD [address] [place] [id number] Phone: tel: fax: [facility] [address] [place] [address] Referral ID Status Reason Start Date Expiration Date Visits Re quested Visits Authorized [id number] Closed 03/16/2021 04/30/2021 2 2 PT ARTIST * (Routine) - Closed Specialty Diagnoses / Procedures Referred By Mallory valentino Referred To Contact Diagnoses Pulmonary nodule Chronic obstructive pulmonary disease, unspecified COPD type (HCC) Procedures Pulmonary Function Test -[facility]; Full PFT in PFT Lab w/Stress Ox/6 Min Walk Test Padmini Trinh MD [address] [place] [id number] Phone: tel: fax: Referral ID Status Reason Start Date Expiration Date Visits Re quested Visits Authorized [id number] Closed 03/15/2021 04/14/2022 1 1 PT ARTIST Reason for Visit * Reason Comments New Patient hospital follow up Encounter Details Date Type Department Care Team (Late st Contact Info) Description 03/15/2021 9:45 AM SCRIPT ARTIST Office Visit [facility] Pulmonology [address] [place] [address] Padmini Trinh MD [address] [facility] [address] [place] [address] Pulmonary nodule (Primary Dx); Chronic obstructive pulmonary disease, unspecified COPD type (HCC); Lung mass; Heart failure with preserved left ventricular function (HFpEF) (CMS/HCC) ([facility]); Non-seasonal allergic rhinitis due to other allergic trigger; Class 3 severe obesity due to excess calories with serious comorbidity and body mass index (BMI) of 45.0 to 49.9 in adult ([facility]); FELISHA (obstructive sleep apnea); Restrictive lung disease; Chronic respiratory failure with hypoxia and hypercapnia (CMS/HCC) ([facility]) Social History Tobacco Use Types Packs/Day Years [...] on file Legal Sex Female 12:59 AM SCRIPT ARTIST Gender Identity Not on file Sexual Orientation Not on file documented as of this encounter Last Filed Vital Signs Vital Sign Reading Time Taken Comments Blood Pressure 121/79 03/15/2021 9:19 AM SCRIPT ARTIST Pulse - - Temperature 36.6 ??C (97.8 ??F) 03/15/2021 9:19 AM CS T Respiratory Rate 18 03/15/2021 9:19 AM SCRIPT ARTIST Oxygen Saturation - - Inhaled Oxygen Concentration - - Weight - - Height 170.2 cm (5' 7 ) 03/15/2021 9:19 AM SCRIPT ARTIST Body Mass Index - - documented in this encounter Progress Notes * Padmini Trinh MD - 03/15/2021 9:45 AM CST Images from the original note were not included. PULMONARY CLINIC NOTE Visit Date: 03/15/2021 INTERVAL HISTORY: Presents today for follow-up of ??? COPD/emphysema ??? Pulmonary nodule ??? Chronic respiratory failure with hypoxia Since discharge respiratory status is doing okay. No dyspnea No coughing or wheezing Using oxygen 1 at rest, 2 with exertion but not always using exertional oxygen. Has yearly allergic rhinitis. Takes cherrie and phenylephrine nasal spray. Has GERD. HPI: Patient is a 70 y.o. female w/ PMH of CKD 5, h/o COPD, obesity his issues seen on hospital in [facility] 2020 for postop hypoxia. She initially presented for AV fistula creation for anticipated start of dialysis. Postoperatively was hypoxic. Evaluation showed some possible emphysema/pulmonary edema as well as lung nodules. She was discharged on supple oxygen. Social History: 100 pack year history, quit 2016. Denies any alcohol or drugs. 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 Has pet cats. Review of Systems: Review of Systems Constitutional: Negative for chills and fever. HENT: Negative for nosebleeds. Eyes: Negative for pain. Respiratory: Negative for wheezing. Cardiovascular: Negative for chest pain. Gastrointestinal: Negative for blood in stool. Endocrine: Negative for polydipsia. Genitourinary: Negative for hematuria. Musculoskeletal: Negative for joint swelling. Skin: Negative for rash. Neurological: Negative for seizures. Psychiatric/Behavioral: Negative for behavioral problems. OBJECTIVE: Physical Exam: Vitals: 03/15/21 0919 BP: 121/79 Resp: 18 Temp: 36.6 ??C (97.8 ??F) Height: 170.2 cm (5' 7 ) Physical Exam Constitutional: General: She is awake. Appearance: Normal appearance. She is obese. HENT: Head: Normocephalic and atraumatic. Right Ear: External ear normal. Left Ear: External ear normal. Nose: Comments: External nose normal appearing Eyes: General: No scleral icterus. Conjunctiva/sclera: Conjunctivae normal. Cardiovascular: Rate and Rhythm: Normal rate and regular rhythm. Heart sounds: No friction rub. Pulmonary: Breath sounds: Normal breath sounds. No wheezing. Abdominal: Palpations: Abdomen is soft. Tenderness: There is no abdominal tenderness. Musculoskeletal: General: No signs of injury. Cervical back: No rigidity. Skin: General: Skin is dry. Coloration: Skin is not jaundiced. Neurological: General: No focal deficit present. Mental Status: She is alert. Mental status is at baseline. Psychiatric: Mood and Affect: Mood normal. Behavior: Behavior normal. Data Review: 02/24/[address]: ?? 1. Approximately 6.9 x 2.5 x 1.8 cm bilobed pleural based masslike opacity along posterior aspect of right lower lobe, indeterminate. Localized fibrosis is certainly a possibility, but malignancy also must be considered. PET-CT is recommended for additional evaluation. There is associated more diffuse mild right posterior pleural thickening. No appreciable pleural effusion. 2. Small bilateral noncalcified pulmonary nodules, largest measuring 6 mm. Six-month follow-up CT chest is recommended. 3. No adenopathy. 4. Coronary artery calcifications. 5. Bilateral small low-density adrenal nodules are thought to be benign. ASSESSMENT AND PLAN 1. Pulmonary nodules and lung mass o Has a few pulmonary nodules most concerning lesion is right lower lobe. May be fibrosis/atelectasis vs malignant? I discussed this with patient and her daughter and reviewed imaging with them. o Obtain PET-CT to further evaluate 2. COPD o No PFTs but significant smoking history and some possible emphysema. o Continue Advair and p.r.n. albuterol o Obtain PFT o Consider pulmonary rehab referral in the future 3. Chronic respiratory failure hypoxia and hypercapnia o Probably due to COPD, pulmonary edema/ESRD, obesity hypoventilation, restrictive lung disease, etc o Continue 1 L oxygen with rest and 2 with exertion o Repeat walk test 4. Seasonal allergic rhinitis o Continue Cherrie add phenylephrine nasal spray. Consider change to Flonase and singular in the future 5. Probable FELISHA o Refer to Sleep Clinic in the future 6. Probable restrictive lung disease and obesity hypoventilation o Obtain PFT. Needs weight loss and improving exercise 7. Obesity/deconditioning o Counseled/discussed on diet and exercise to improve cardiac and muscular conditioning and facilitate weight loss. 8. H/o tobacco abuse o 100 pack year history, quit 2016. Continue abstinence 9. CKD and HFpEF o Follows with Nephrology. Continue Lasix. Keep euvolemic My total encounter time on 03/15/2021 was 45 minutes which was spent in the activities documented in the note. This includes time spent prior to the visit, during the visit/[id number] time, and after the visit in direct care of the patient. This time does not include time spent in any separately reportable services. Padmini Trinh MD Pulmonary Medicine There may be syntax/grammatical errors in this note due to the use of voice recognition software. PT ARTIST PT ARTIST documented in this encounter Plan of Treatment Not on file documented as of this encounter Results * (ABNORMAL) Pulmonary Function Test - (06/06/2021 2:04 PM CDT) FVC POST 1.57(L) 2.30 - 4.07 L 06/06/2021 2:05 PM CDT [facility] FVC PRE 1.40(L) 2.30 - 4.07 L 06/06/2021 2:05 PM CDT [facility] FEV1 POST 1.02(L) 1.76 - 3.11 L 06/06/2021 2:05 PM CDT [facility] FEV1 PRE 0.95(L) 1.76 - 3.11 L 06/06/2021 2:05 PM CDT [facility] [id number] 64.93 63.77 - 90.83 % 06/06/2021 2:05 PM CDT [facility] [id number] 67.57 63.77 - 90.83 % 06/06/2021 2:05 PM CDT [facility] MXW01-28% POST 0.48(L) 0.88 - 3.01 L/s 06/06/2021 2:05 PM CDT [facility] ZYO75-35% PRE 0.49(L) 0.88 - 3.01 L/s 06/06/2021 2:05 PM CDT [facility] PEF POST 4.29(L) 4.76 - 7.73 L/s 06/06/2021 2:05 PM CDT [facility] PEF PRE 4.24(L) 4.76 - 7.73 L/s 06/06/2021 2:05 PM CDT [facility] FET 100% POST 8.96 sec 06/06/2021 2:05 PM CDT [facility] FET 100% PRE 7.58 sec 06/06/2021 2:05 PM CDT [facility] FIVC POST 1.60(L) 2.36 - 3.74 L 06/06/2021 2:05 PM CDT [facility] FIVC PRE 1.27(L) 2.36 - 3.74 L 06/06/2021 2:05 PM CDT [facility] FIF50% POST 2.26 L/s 06/06/2021 2:05 PM CDT [facility] FIF50% PRE 1.70 L/s 06/06/2021 2:05 PM CDT [facility] VCMAX N2 PRE 1.51(L) 2.36 - 3.74 L 06/06/2021 2:05 PM CDT [facility] TLC N2 PRE 2.96(L) 4.64 - 6.62 L 06/06/2021 2:05 PM CDT [facility] RV N2 PRE 1.45(L) 1.71 - 2.86 L 06/06/2021 2:05 PM CDT [facility] FRC N2 PRE 1.53 L 06/06/2021 2:05 PM CDT [facility] ERV N2 PRE 0.08(L) 0.66 - 0.66 L 06/06/2021 2:05 PM CDT [facility] IC N2 PRE 1.43(L) 2.39 - 2.39 L 06/06/2021 2:05 PM CDT [facility] DLCOc SB 9.82(L) 17.81 - 29.27 ml/(min*mm Hg) 06/06/2021 2:05 PM CDT [facility] DLCOc SB 9.82(L) 17.81 - 29.27 ml/(min*mm Hg) 06/06/2021 2:05 PM CDT [facility] VA 2.33(L) 5.48 - 5.48 L 06/06/2021 2:05 PM CDT [facility] DLCO/VA PRE 4.22 2.93 - 5.44 ml/(min*mm Hg*L) 06/06/2021 2:05 PM CDT [facility] DLCOc SB 4.22 2.93 - 5.44 ml/(min*mm Hg*L) 06/06/2021 2:05 PM T [facility] Anatomical Region Laterality Modality PFT 06/06/2021 1:12 PM CDT Narrative 06/07/2021 10:13 PM CDT ??PFT INTERPRETATION Spirometry: Forced vital capacity (FVC) is: decreased Forced expiratory volume in 1 second (FEV1) is: decreased FEV1/FVC ratio: decreased Significant bronchodilator response? No Flow Volume Loop: Narrowed Lung Volume: Total lung capacity (TLC) is: decreased Residual volume (RV) is: decreased Diffusing Capacity: Decreased Interpretation: Severe obstructive ventilatory pattern. There is no significant bronchodilator response. ??This does not preclude the use of bronchodilator therapy if clinically indicated. Additional moderate restrictive ventilatory pattern. The decrease in diffusing capacity maybe seen in conditions such as emphysema, interstitial lung disease, pulmonary vascular disorders, anemia. Correlate clinically. Ambulatory testing performed by another CNC MANAGER. Results in [facility]. Electronically signed by: Charli Holden Padmini Trinh MD PFT ORDERABLES Final Result * PET/CT FDG Skull to Thigh (03/24/2021 1:51 PM SCRIPT ARTIST) Anatomical Region Laterality Modality N/A Positron Emissio n Tomography (PET) 03/24/2021 1:59 PM SCRIPT ARTIST Narrative 03/24/2021 2:54 PM SCRIPT ARTIST EXAM DESCRIPTION: ?? PET/CT FDG SKULL TO THIGH RADIOPHARMACEUTICAL: ?? 11.7 ??mCi F-18 Fluorodeoxyglucose (FDG) via a ?? right antecubital vein ??IV site REASON FOR STUDY: ?? Pulmonary nodule, initial treatment strategy. TECHNIQUE: The patient's fasting blood glucose level, measured by glucometer before injection of FDG, was ?? 64 ??mg/dL. ??After intravenous administration of FDG, noncontrast CT images were obtained for attenuation correction and for fusion with emission PET images to allow for anatomical localization of PET findings. ??Emission PET images were then obtained. The area imaged spanned the region from the ?? skull base ??to the ?? proximal thighs . ??The time from injection of FDG to start of imaging was ?? 64 ??minutes. COMPARISON: ?? CT chest 02/24/2021 FINDINGS: ?? Head: Normal FDG uptake is seen in the included portion of the brain. Neck: There is diffuse uptake throughout the thyroid. ??No hypermetabolic cervical lymphadenopathy. Chest: No hypermetabolic adenopathy in the axillae, mediastinum, or trell. ?? The bandlike consolidation within the right lower lobe measures 6.7 x 2.5 x 2.3 cm compared to 6.9 x 2.5 x 1.8 cm previously and has an SUV of 2.5. ??There is associated pleural thickening along the posterior right hemithorax with mild low level activity with an SUV of 1.9. ??The uptake throughout the masslike consolidation is diffuse. ?? Noncalcified 6 mm nodule in the lateral right lower lobe is unchanged and shows no abnormal FDG uptake. ??Posterolateral right upper lobe noncalcified 5 mm nodule has an SUV of 1.6. ??Noncalcified 8 mm nodule in the right middle lobe has an SUV of 2. ??Noncalcified 8 mm nodule in the left upper lobe has an SUV of 2.8. ?? Heart size is within normal limits. ??Coronary artery calcification. ??No pericardial effusion. ??No pleural effusion. ?? 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 Abdomen and Pelvis: Heterogeneous uptake within the liver including focal areas in the left hepatic lobe near the periphery are favored to be artifactual from misregistration. ??No corresponding abnormality on the noncontrast CT scan. ? Gallbladder is unremarkable. ?? The spleen is normal. ?? Normal pancreas without focal FDG activity. ?? Minimal uptake within the adrenal glands is less than that of the liver and likely physiologic. ??Photopenic 1.1 cm interpolar left renal lesion likely represents a cyst. ??No hydronephrosis. ?The bladder is decompressed and incompletely evaluated. ?? Mild sigmoid colon diverticulosis. ?Normal gastrointestinal activity is seen. ?? No hypermetabolic lymph nodes in the abdomen or pelvis. ?Atherosclerotic calcification of the abdominal aorta without aneurysm. ?? Moderate activity in the left iliopsoas muscle without definite soft tissue abnormality likely representing muscular strain. Bones: No acute or aggressive appearing osseous lesions. ?? Prior anterior cervical discectomy and fusion as well as fusion at L5-S1 with interbody disc spacer. IMPRESSION: ?? 1. ?? Masslike consolidation in the right lower lobe measuring 6.7 x 2.5 x 2.3 has an SUV of 2.5. ??The uptake is indeterminate although a mass of this size would likely have higher SUV values if malignant. ??This could represent scarring or round atelectasis. ??If a more aggressive workup is not pursued, continued follow-up with CT is recommended. 2. ?? Noncalcified 5 mm nodule in the right upper lobe has an SUV of 1.6. ?? Noncalcified 8 mm nodule in the right middle lobe has an SUV of 2. ?? Noncalcified 8 mm nodule in the left upper lobe has an SUV of 2.8. ??This uptake is nonspecific and continued attention on follow-up imaging is recommended. 3. ?? Diffuse uptake throughout the thyroid gland. ??Correlation with thyroid function tests recommended. 4. ?? Heterogeneous uptake in the left hepatic lobe particularly near the liver is edge likely represent misregistration artifact and activity in the stomach. An MRI or multiphase CT of the liver could be obtained for confirmation. THIS IS AN ELECTRONICALLY VERIFIED FINAL REPORT 03/24/2021 2:54 PM - Electronically signed by ??Elie Braswell M.D. LB: MARGIE D: ??03/24/2021 2:54 PM T: ??03/24/2021 2:54 PM Report ID: [id number] Reading Location: ??[id number] Procedure Note Elie Braswell MD - 03/24/2021 EXAM DESCRIPTION: PET/CT FDG SKULL TO THIGH RADIOPHARMACEUTICAL: 11.7 mCi F-18 Fluorodeoxyglucose (FDG) via aright antecubital vein IV site REASON FOR STUDY: Pulmonary nodule, initial treatment strategy. TECHNIQUE: The patient's fasting blood glucose level, measured byglucometer before injection of FDG, was 64 mg/dL. After intravenousadministration of FDG, noncontrast CT images were obtained for attenuation correction andfor fusion with emission PET images to allow for anatomical localization ofPET findings. Emission PET images were then obtained. The area imaged spannedthe region from the skull base to the proximal thighs . The time from injection of FDG to start of imaging was 64 minutes. COMPARISON: CT chest 02/24/2021 FINDINGS: Head: Normal FDG uptake is seen in the included portion of the brain. Neck: There is diffuse uptake throughout the thyroid. No hypermetaboliccervical lymphadenopathy. Chest: No hypermetabolic adenopathy in the axillae, mediastinum, or trell. The bandlike consolidation within the right lower lobe measures 6.7 x 2.5x 2.3 cm compared to 6.9 x 2.5 x 1.8 cm previously and has an SUV of 2.5.There is associated pleural thickening along the posterior right hemithorax with mild low level activity with an SUV of 1.9. The uptake throughout the masslike consolidation is diffuse. Noncalcified 6 mm nodule in the lateral right lower lobe is unchanged and shows no abnormal FDG uptake. Posterolateral right upper lobenoncalcified 5 mm nodule has an SUV of 1.6. Noncalcified 8 mm nodule in the right middle lobe has an SUV of 2. Noncalcified 8 mm nodule in the left upper lobe hasan SUV of 2.8. Heart size is within normal limits. Coronary artery calcification. No pericardial effusion. No pleural effusion. 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 Abdomen and Pelvis: Heterogeneous uptake within the liver including focal areas in the left hepatic lobe near the periphery are favored to be artifactual from misregistration. No corresponding abnormality on the noncontrast CT scan. Gallbladder is unremarkable. The spleen is normal. Normal pancreaswithout focal FDG activity. Minimal uptake within the adrenal glands is lessthan that of the liver and likely physiologic. Photopenic 1.1 cm interpolarleft renal lesion likely represents a cyst. No hydronephrosis. The bladderis decompressed and incompletely evaluated. Mild sigmoid colondiverticulosis. Normal gastrointestinal activity is seen. No hypermetabolic lymphnodes in the abdomen or pelvis. Atherosclerotic calcification of the abdominal aorta without aneurysm. Moderate activity in the left iliopsoas muscle without definite soft tissue abnormality likely representing muscularstrain. Bones: No acute or aggressive appearing osseous lesions. Prior anteriorcervical discectomy and fusion as well as fusion at L5-S1 with interbody discspacer. IMPRESSION: 1. Masslike consolidation in the right lower lobe measuring 6.7 x 2.5 x2.3 has an SUV of 2.5. The uptake is indeterminate although a mass of thissize would likely have higher SUV values if malignant. This could represent scarring or round atelectasis. If a more aggressive workup is notpursued, continued follow-up with CT is recommended. 2. Noncalcified 5 mm nodule in the right upper lobe has an SUV of 1.6. Noncalcified 8 mm nodule in the right middle lobe has an SUV of 2. Noncalcified 8 mm nodule in the left upper lobe has an SUV of 2.8. This uptake is nonspecific and continued attention on follow-up imaging is recommended. 3. Diffuse uptake throughout the thyroid gland. Correlation withthyroid function tests recommended. 4. Heterogeneous uptake in the left hepatic lobe particularly near theliver is edge likely represent misregistration artifact and activity in thestomach. An MRI or multiphase CT of the liver could be obtained for confirmation. THIS IS AN ELECTRONICALLY VERIFIED FINAL REPORT 03/24/2021 2:54 PM - Electronically signed by Elie Braswell M.D. LB: MARGIE Report ID: [id number] Reading Location: [place] [address] [place] Padmini Trinh MD IMG PET PROCEDURES Final Resu lt documented in this encounter Visit Diagnoses Diagnosis Pulmonary nodule- Primary Other diseases of lung, not elsewhere classified Chronic obstructive pulmonary disease, unspecified COPD type (HCC) Lung mass Swelling, mass, or lump in chest Heart failure with preserved left ventricular function (HFpEF) (CMS/HCC) (HCC) Non-seasonal allergic rhinitis due to other allergic trigger Class 3 severe obesity due to excess calories with serious comorbidity and body mass index (BMI) of 45.0 to 49.9 in adult (HCC) FELISHA (obstructive sleep apnea) Obstructive sleep apnea (adult) (pediatric) Restrictive lung disease Other diseases of lung, not elsewhere classified Chronic respiratory failure with hypoxia and hypercapnia (CMS/HCC) (HCC) Pulmonary nodule Other diseases of lung, not elsewhere classified Pulmonary nodule Other diseases of lung, not elsewhere classified Chronic obstructive pulmonary disease, unspecified COPD type ([facility]) documented in this encounter Historical Medications * This list may reflect changes made after this encounter. albuterol HFA (PROVENTIL HFA,VENTOLIN HFA,PROAIR HFA) 90 mcg/actuation inhaler 2 puffs every 4 (four) hours as needed 02/27/2021 05/03/2021 added in this encounter Care Teams Pastry Sous Chef Relationship Specialty Start Date End Date Gaudencio Miranda MD [address] [place] [address] PCP - General 07/25/16 Herberth Rodgers MD [address] [facility] [address] Surgeon Surgery 02/24/21 documented as of this encounter
--- OUTSIDE RECORDS SUMMARY | 2024-03-07 14:12 | XMS_ITS | Encounter Summary ---
Author Organization [facility] Address [address] [place] [address] Care Team Providers Care Nailer Operator Name Role Phone Gaudencio Miranda MD Primary Care Provider [phone] Herberth Rodgers MD Unavailable [phone] Encounter Details Date Type Department Care Team (Late st Contact Info) Description 04/20/2021 Orders Only [facility] Testing Site - [facility]. Building [address] [place] [address] [address] [place] [address] Padmini Trinh MD [address] [facility] [address] [address] Pre-procedure lab exam (Primary Dx) Social History Tobacco Use Types Packs/Day Years [...] on file Legal Sex Female 12:59 AM BUYER LIAISON Gender Identity Not on file Sexual Orientation Not on file documented as of this encounter Progress Notes * Yue Griffith MA - 04/20/2021 2:40 PM CST Testing types: Pre-procedure ?? Date of Px/chemo/treatment/placement/transfer 04/25/2021 ?? Testing site patient will be sent to: [facility] ?? Date testing requested: 04/22/2021 ?? Testing: COVID-19 RNA ?? Does the patient currently work in a healthcare facility with direct patient contact? No ?? Is the patient a resident of a congregate care or living setting? No ?? ? No R LIAISON documented in this encounter Plan of Treatment Not on file documented as of this encounter Results * COVID-19 Coronavirus RNA Nasopharyngeal (04/29/2021 3:11 PM BUYER LIAISON) COVID-19 RNA Not Detected [facility] Comment: Interpretive Data Synonyms for this test include: PCR and NAAT . ??Testing performed by the [facility]ious Disease [facility]. The 2019-Novel Coronavirus [...] April 22, 2020. First COVID-19 test? No [facility] Employeed in healthcare? No [facility] status? No [facility] Group care resident? No [facility] Hospitalized? No [facility] Is patient in ICU? No [facility] Symptomatic as defined by CDC? No [facility] Nasopharyngeal 04/29/2021 3: 11 PM BUYER LIAISON 04/29/2021 7:33 PM BUYER LIAISON Narrative [facility] - 04/30/2021 3:28 AM BUYER LIAISON What is the reason for testing?->Screening prior to scheduled??procedure or surgery??(Batched) us Padmini Trinh MD LAB MICROBIOLOGY - GENERAL OR DERABLES Final Result [facility] Department [place] [address] documented in this encounter Visit Diagnoses Diagnosis Pre-procedure lab exam- Primary Pre-procedural laboratory examination Pre-procedure lab exam Pre-procedural laboratory examination documented in this encounter Care Teams Nailer Operator Relationship Specialty Start Date End Date Gaudencio Miranda MD [address] [place] [id number] PCP - General 07/25/16 Herberth Rodgers MD [address] [facility] [address] [address] Surgeon Surgery 02/24/21 documented as of this encounter
--- OUTSIDE RECORDS SUMMARY | 2024-03-07 14:12 | XMS_ITS | Encounter Summary ---
Author Organization [facility] Address [address] [place] [address] Care Team Providers Care Light Oil Operator Name Role Phone Gaudencio Miranda MD Primary Care Provider [phone] Herberth Rodgers MD Unavailable [phone] Reason for Referral * MRI/CAT/PET Scan (Routine) - Closed Specialty Diagnoses / Procedures Referred By Contac t Referred To Contact Radiology Diagnoses Lung mass Procedures CT Chest WO Contrast Padmini Trinh MD [address] [place] [address] [address] [place] [address] Phone: tel: fax: [address] [address] Referral ID Status Reason Start Date Expiration Date Visits Re quested Visits Authorized [id number] Closed 07/11/2021 08/10/2022 1 1 Reason for Visit * Reason Comments Follow-up Encounter Details Date Type Department Care Team (Late st Contact Info) Description 07/11/2021 4:00 PM CDT Office Visit [facility] Pulmonology [address] [place] [address] Padmini Trinh MD [address] [facility] [address] [place] [address] Chronic obstructive pulmonary disease, unspecified COPD type (HCC) (Primary Dx); Lung mass; Non-seasonal allergic rhinitis due to other allergic trigger; Class 3 severe obesity due to excess calories with serious comorbidity and body mass index (BMI) of 45.0 to 49.9 in adult ([facility]); Heart failure with preserved left ventricular function (HFpEF) (CMS/HCC) ([facility]); Chronic respiratory failure with hypoxia and hypercapnia (CMS/HCC) ([facility]); Restrictive lung disease; Muscular deconditioning Social History Tobacco Use Types Packs/Day Years [...] on file Legal 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 PULMONARY CLINIC NOTE Visit Date: 07/11/2021 INTERVAL HISTORY: Presents today for follow-up of ??? COPD/emphysema ??? Pulmonary nodule ??? Chronic respiratory failure with hypoxia Overall respiratory status mostly same Dyspnea with exertion No dyspnea at rest Some wheezing. Minimal cough. Some issues using oxygen regularly is concerns over tripping and falling of record and location herhouse of concentrator. Not very mobile. Has yearly allergic rhinitis. Takes cherrie and phenylephrine nasal spray. HPI: Patient is a 70 y.o. female w/ PMH of CKD 5, h/o COPD, obesity his issues seen on hospital in [facility] 2020 for postop hypoxia. She [...] for behavioral problems. OBJECTIVE: Physical Exam: Vitals: 07/11/21 1604 BP: 107/63 BP Location: Right arm Patient Position: Sitting Pulse: 67 Resp: 20 SpO2: (!) 85% Height: 170.2 cm (5' 7 ) Physical [...] Mood normal. Behavior: Behavior normal. Data Review: Lung biopsy: PFT shows severe obstruction as well as restriction ASSESSMENT AND PLAN 1. Pulmonary nodules and lung mass o Has a few pulmonary nodules most concerning lesion is right lower lobe. PET did not show much suspicious FDG avidity which is indeterminate has a would be expected be very FDG avid given the size if this lesion was malignant. More likely atelectasis/fibrosis? Biopsy was unrevealing in April 2021. o Will repeat chest CT to follow 2. COPD o Stage III COPD by spirometry but stage IV given oxygen use. o Continue trelegy and p.r.n. albuterol, she is not using inhalers very often o Discussed pulmonary rehab referral of patient but getting to Pulmonary Rehab frequently is difficult for her. 3. Chronic respiratory failure hypoxia and hypercapnia o Due to COPD, pulmonary edema/ESRD, obesity hypoventilation, restrictive lung disease, etc o Repeat walk test shows 1 L rest and 3 with exertion. o Will try to get her portable oxygen concentrator 4. allergic rhinitis o Continue Cherrie, phenylephrine nasal spray. Consider change to Flonase and singular in the future 5. Deconditioning/Obesity with Restrictive lung disease and obesity hypoventilation o Patient's is very limited mobility and does not do much exercise at all is very deconditioned. Counseled/discussed at length with patient and her daughter on diet and exercise to improve cardiac and muscular conditioning and facilitate weight loss. 6. H/o tobacco abuse o 100 pack year history, quit 2016. Continue abstinence 7. CKD and HFpEF o Follows with Nephrology. Continue Lasix. Keep euvolemic Padmini Trinh MD Pulmonary Medicine There may be syntax/grammatical errors in this note due to the use of voice recognition software. My total encounter time on 07/11/2021 was 40 minutes which was spent in the activities documented inthe note. This includes time spent prior to the visit reviewing chart/results/previous evaluation, during the visit/vvde-mz-xyax time, and after the visit in direct care of the patient. This time does not include time spent in any separately reportable services. documented in this encounter Plan of Treatment Not on file documented as of this encounter Results * CT Chest WO Contrast (11/17/2021 2:00 PM CDT) Anatomical Region Laterality Modality Body N/A Computed Tomogra phy 11/20/2021 1:26 PM CDT Narrative 11/20/2021 1:41 PM CDT EXAM DESCRIPTION: ?? CT CHEST WO CONTRAST REASON FOR STUDY: ?? lung nodule ?? 9 month f/u on nodule/mass. No complaints. ? TECHNIQUE: CT scan of the chest performed without intravenous contrast using helical scanning technique. Reconstructed coronal and sagittal MPR images reviewed. ??All images stored on PACS. ??Automated exposure control was used as a dose optimization technique for this examination. COMPARISON: ?? CT chest 05/03/2021, CT chest 02/24/2021 , PET/CT 03/24/2021 FINDINGS: The sensitivity for detection of solid visceral lesions is diminished without the use of intravenous contrast. LUNGS: ?? No new pulmonary nodules or masses. ??6 mm noncalcified nodule in the lingula appears stable. ??5 mm ground-glass nodule in the right lung apex stable. ??4 mm nodule in the right upper lobe posteriorly appears stable. ??A 5 mm nodule in the right upper lobe not well visualized this exam. ??6 mm nodule in the right lower lobe axial image 81 of 105, stable. Soft tissue density masslike area of consolidation in the right lower lobe is unchanged in size measuring up to 2.5 cm anterior-posterior dimension and 2 cm medial-lateral dimension. ??This measures about 7 cm craniocaudad dimension. PLEURA: ?? No effusion. No pneumothorax. MEDIASTINUM/MIKE: ?? No identified masses or abnormal nodes. HEART: ?? Heart size is normal with no pericardial effusion. VASCULATURE: ?? No thoracic aortic aneurysm. AXILLA: ?? No adenopathy. CHEST WALL: ?? No masses. ??No subcutaneous air. HARDWARE/LINES/TUBES: ?? None. UPPER ABDOMEN: ?? No significant abnormality. MUSCULOSKELETAL: ?? No significant abnormality. OTHER: ?? No other significant abnormality. IMPRESSION: ?? No new pulmonary nodules or masses. Large masslike area of consolidation in the right lower lobe posteriorly appears stable. ??A 5 mm nodule in the right lung base no longer visualized on this exam. ??The remaining bilateral pulmonary nodules appear stable. ?? Continued CT follow-up is recommended to ensure stability and exclude malignancy. ??Recent guidelines by the Fleischner Society (Radiology 851702,2017) divides patient into low vs. high risk (for example, patients who smoke are considered high risk) and provides followup recommendations as follows: SOLITARY PULMONARY NODULE: Patients considered LOW OR HIGH RISK for lung cancer with a solitary nodule larger than 8 mm in diameter, consider CT at 3 months, PET/CT, or tissue sampling. MULTIPLE PULMONARY NODULES: Patients considered LOW RISK for lung cancer and multiple nodules larger than 8 mm in diameter require follow-up CT at 3-6 months, then consider CT at 18-24 months. ??In patients at HIGHER RISK, for example smokers, require follow-up CT at 3-6 months, then CT at 18-24 months. Note: These recommendations do not apply to lung cancer screening, patients with immunosuppression, or patients with known primary cancer. http://pubs.rsna.org/doi/pdf/10.1148/radiol.1256956476 THIS IS AN ELECTRONICALLY VERIFIED FINAL REPORT 11/20/2021 1:41 PM - Electronically signed by ??Matthias Redd M.D. RW: [facility] D: ??11/20/2021 1:41 PM T: ??11/20/2021 1:41 PM Report ID: [id number] Reading Location: ??[id number] Procedure Note Matthias Redd MD - 11/20/2021 EXAM DESCRIPTION: CT CHEST WO CONTRAST REASON FOR STUDY: lung nodule 9 month f/u on nodule/mass. No complaints. TECHNIQUE: CT scan of the chest performed without intravenous contrastusing helical scanning technique. Reconstructed coronal and sagittal MPR images reviewed. All images stored on PACS. Automated exposure control was usedas a dose optimization technique for this examination. COMPARISON: CT chest 05/03/2021, CT chest 02/24/2021 , PET/CT 03/24/2021 FINDINGS: The sensitivity for detection of solid visceral lesions is diminished without the use of intravenous contrast. LUNGS: No new pulmonary nodules or masses. 6 mm noncalcified nodule inthe lingula appears stable. 5 mm ground-glass nodule in the right lung apex stable. 4 mm nodule in the right upper lobe posteriorly appears stable.A 5 mm nodule in the right upper lobe not well visualized this exam. 6 mmnodule in the right lower lobe axial image 81 of 105, stable. Soft tissue density masslike area of consolidation in the right lower lobeis unchanged in size measuring up to 2.5 cm anterior-posterior dimension and2 cm medial-lateral dimension. This measures about 7 cm craniocaudaddimension. PLEURA: No effusion. No pneumothorax. MEDIASTINUM/MIKE: No identified masses or abnormal nodes. HEART: Heart size is normal with no pericardial effusion. VASCULATURE: No thoracic aortic aneurysm. AXILLA: No adenopathy. CHEST WALL: No masses. No subcutaneous air. HARDWARE/LINES/TUBES: None. UPPER ABDOMEN: No significant abnormality. MUSCULOSKELETAL: No significant abnormality. OTHER: No other significant abnormality. IMPRESSION: No new pulmonary nodules or masses. Large masslike area of consolidation in the right lower lobe posteriorly appears stable. A 5 mm nodule in the right lung base no longer visualizedon this exam. The remaining bilateral pulmonary nodules appear stable. Continued CT follow-up is recommended to ensure stability and exclude malignancy. Recent guidelines by the Fleischner Society (Radiology 864304,2017)divides patient into low vs. high risk (for example, patients who smoke areconsidered high risk) and provides followup recommendations as follows: SOLITARY PULMONARY NODULE: Patients considered LOW OR HIGH RISK for lung cancer with a solitary nodule larger than 8 mm in diameter, consider CT at3 months, PET/CT, or tissue sampling. MULTIPLE PULMONARY NODULES: Patients considered LOW RISK for lung cancerand multiple nodules larger than 8 mm in diameter require follow-up CT at 3-6 months, then consider CT at 18-24 months. In patients at HIGHER RISK, for example smokers, require follow-up CT at 3-6 months, then CT at 18-24months. Note: These recommendations do not apply to lung cancer screening,patients with immunosuppression, or patients with known primary cancer. http://pubs.rsna.org/doi/pdf/10.1148/radiol.4993685859 THIS IS AN ELECTRONICALLY VERIFIED FINAL REPORT 11/20/2021 1:41 PM - Electronically signed by Matthias Redd M.D. RW: [facility] Report ID: [id number] Reading Location: [place] [address] [place] Padmini Trinh MD IMG CT PROCEDURES Final Resul t documented in this encounter Visit Diagnoses Diagnosis Chronic obstructive pulmonary disease, unspecified COPD type (HCC)- Primary Lung mass Swelling, mass, or lump in chest Non-seasonal allergic rhinitis due to other allergic trigger Class 3 severe obesity due to excess calories with serious comorbidity and body mass index (BMI) of 45.0 to 49.9 in adult (HCC) Heart failure with preserved left ventricular function (HFpEF) (CMS/HCC) (HCC) Chronic respiratory failure with hypoxia and hypercapnia (CMS/HCC) (HCC) Restrictive lung disease Other diseases of lung, not elsewhere classified Muscular deconditioning Muscular wasting and disuse atrophy, not elsewhere classified Lung mass Swelling, mass, or lump in chest documented in this encounter Care Teams Light Oil Operator Relationship Specialty Start Date End Date Gaudencio Miranda MD [address] [place] [address] PCP - General 07/25/16 Herberth Rodgers MD [address] [facility] [address] [address] Surgeon Surgery 02/24/21 documented as of this encounter
--- OUTSIDE RECORDS SUMMARY | 2024-03-07 14:12 | XMS_ITS | Encounter Summary ---
Author Organization [facility] Healthcare Address [address] [place] [address] Care Team Providers Care Detective Youth [employer] Name Role Phone Gaudencio Miranda MD Primary Care Provider [phone] Herberth Rodgers MD Unavailable [phone] Reason for Referral * MRI/CAT/PET Scan (Routine) - Closed Specialty Diagnoses / Procedures Referred By Mallory valentino Referred To Contact Radiology Diagnoses Lung mass Procedures CT Lung Needle Biopsy Right Padmini Trinh MD [facility] [address] [place] [address] Phone: tel: fax: [address] [phone] Referral ID Status Reason Start Date Expiration Date Visits Re quested Visits Authorized [id number] Closed 04/08/2021 05/08/2022 1 1 BAG CLIPPER Reason for Visit * MRI/CAT/PET Scan (Routine) - Closed Specialty Diagnoses / Procedures Referred By Mallory valentino Referred To Contact Radiology Diagnoses Lung mass Procedures CT Lung Needle Biopsy Right Padmini Trinh MD [address] [facility] [address] [place] [address] Phone: tel: fax: [address] [phone] Referral ID Status Reason Start Date Expiration Date Visits Re quested Visits Authorized [id number] Closed 04/08/2021 05/08/2022 1 1 Encounter Details Date Type Department Care Team (Latest Contact Info) Description 05/03/2021 7:13 AM JUTE BAG CLIPPER - 05/03/2021 11:51 AM JUTE BAG CLIPPER Hospital Encounter [facility] [address] [place] [address] Rn, Mhb Rad Lung mass; Shortness of breath Discharge Disposition: Discharge to home or self care Social History Tobacco Use Types Packs/Day Years Used Date Smoking Tobacco: Former Cigarettes 2 40 1 6 - 2015 Smokeless Tobacco: Never AUDIT-C Answer Date Recorded Q1: How often do you have a drink containing alc ohol? Never 05/03/2021 Average Number of Drinks Not on file 022 Frequency of Binge Drinking Not on file 04/19 Comments Unknown Sex and Gender Information Value Date Recorded Sex Assigned at Not on file Legal Sex Female 12:59 AM JUTE BAG CLIPPER Gender Identity Not on file Sexual Orientation Not on file documented as of this encounter Last Filed Vital Signs Vital Sign Reading Time Taken Comments Blood Pressure 139/58 05/03/2021 11:33 AM JUTE BAG CLIPPER Pulse 54 05/03/2021 11:33 AM JUTE BAG CLIPPER Temperature 36.2 ??C (97.1 ??F) 05/03/2021 8:10 AM CS T Respiratory Rate 20 05/03/2021 11:33 AM JUTE BAG CLIPPER Oxygen Saturation 93% 05/03/2021 11:33 AM JUTE BAG CLIPPER Inhaled Oxygen Concentration - - Weight 134.3 kg (296 lb) 05/03/2021 8:10 AM JUTE BAG CLIPPER Height 170.2 cm (5' 7 ) 05/03/2021 8:10 AM JUTE BAG CLIPPER Body Mass Index 46.36 05/03/2021 8:10 AM JUTE BAG CLIPPER documented in this encounter Discharge Instructions * Attachments The following attachments cannot be sent through Care Everywhere. * Needle Biopsy of the Lung (Discharge Care) (Samoan) documented in this encounter Medications at Time of Discharge calcitRIOL (ROCALTROL) 0.25 mcg capsule Take 1 capsule (0.25 mcg total) by mouth every other day -08/30/2020 cholecalciferol (VITAMIN D-3) 2000 unit tablet Take [...] 1 tablet by mouth every 6 hours multivitamin with minerals tablet Take 1 tablet [...] tablets (20 mg total) by mouth daily spironolactone (ALDACTONE) 50 mg tablet 03/22/2021 levothyroxine (SYNTHROID) 200 mcg tablet Take 1 tablet (200 mcg total) by mouth daily 05/28/2023 fluticasone-umecl idin-vilanter (Trelegy Ellipta) 100-62.5-25 mcg inhalerIndication s:Chronic obstructive pulmonary disease, unspecified COPD type (HCC) Inhale 1 puff daily 1 each 3 03/28/2021 05/28/2023 documented as of this encounter Discharge Disposition Disposition Code Departure Means Destination Discharge to home or self care documented in this encounter Miscellaneous Notes * Perioperative Nursing Note - Diana Dolan RN - 05/03/2021 1:16 PM JUTE BAG CLIPPER AVS given to pt and prepared for discharge. No questions at this time. BAG CLIPPER * Perioperative Nursing Note - Diana Dolan RN - 05/03/2021 12:17 PM JUTE BAG CLIPPER Spoke with Marlee LOVE ab pt pain level and request for home pain med. stated that was ok to give. also reviewed Chest xray results and stated it was okay for pt to eat/drink and be D/C after 3 hour bed rest complete. BAG CLIPPER * Pre-Procedure Note - Autumn Whalen DO - 05/03/2021 10:00 AM JUTE BAG CLIPPER Interventional Radiology Preprocedure Note Indication for procedure: Diagnoses of Lung mass and Shortness of breath were pertinent to this visit. Relevant past medical/surgical history: Past Surgical History: Procedure Laterality Date ??? AV FISTULA PLACEMENT Left 02/24/2021 Ligation & division large LT cephalic vein AV fistula tributary. ??? BREAST SURGERY Right 1980 lumpectomy ??? CERVICAL FUSION 2004 Per daughter unknown levels and how many fused. ??? EYE SURGERY CATARACTS ??? SPINAL FUSION Spinal Arthrodesis - (Added by TW Conv) ??? VAGINAL DELIVERY x2 . Past Medical History: Diagnosis Date ??? Acute respiratory failure with hypoxia (CMS/HCC) (HCC) 02/24/2021 ??? Chronic kidney disease stage 4 ??? Cirrhosis of liver (CMS/HCC) (HCC) 02/24/2021 ??? COPD (chronic obstructive pulmonary disease) (CMS/HCC) (HCC) ??? Depression ??? Dry skin ??? Food intolerance PEANUTS ??? GERD (gastroesophageal reflux disease) ??? Headache ??? History of chest pain 12/2020 Previous surgery cancelled R/T possible CP. Engineering Specialist ruled out heart disease, testing negative. ??? Hypertension ??? Hypothyroidism ??? Infectious viral hepatitis cirrhosis ??? Lung disease COPD ??? Obesity ??? Occasional tremors HANDSA NEW MEDICINE TO BE STARTED ??? Personal history of other diseases of the circulatory system History of rheumatic fever - (Added by TW Conv) ??? Personal history of other diseases of the respiratory system History of chronic obstructive lung disease - (Added by TW Conv) ??? Wears partial dentures ?UPPER AND LOWER PER DAUGHTER Relevant medications: N/A Relevant family history: NA Relevant review of systems: NA Allergies: Sulfa (sulfonamide antibiotics), Aspirin, and Peanut Relevant Labs: Lab Results Component Value Date CREATININE 2.50 (H) 02/27/2021 INR 1.0 02/24/2021 Last Blood Cx date and result: N/A Preprocedure Diet Instructions:NPO Directed physical examination: N/C Assessment/Plan: CT guided right lower lobe nodule biopsy. BAG CLIPPER documented in this encounter Plan of Treatment Not on file documented as of this encounter Procedures Procedure Name Priority Date/Time Associated Diagnosis Comments XR CHEST 1 VIEW IP Routine 05/03/2021 12:12 PM JUTE BAG CLIPPER SURGICAL PATHOLOGY Routine 05/03/2021 10 :33 AM JUTE BAG CLIPPER Lung mass CT NEEDLE BIOPSY LUNG RIGHT Schedule Routine, Read Routine (OP Routine) 05/03/2021 10:31 AM JUTE BAG CLIPPER Lung mass DIFFERENTIAL AUTO Routine 05/03/2021 7:5 8 AM JUTE BAG CLIPPER Lung mass CBC WITH AUTO DIFFERENTIAL Routine 05/03/2021 7:58 AM JUTE BAG CLIPPER Lung mass APTT Routine 05/03/2021 7:57 AM JUTE BAG CLIPPER Lung mass Shortness of breath PROTIME-INR Routine 05/03/2021 7:57 AM JUTE BAG CLIPPER Lung mass Shortness of breath documented in this encounter Results * XR Chest 1 View (Portable) (05/03/2021 12:12 PM JUTE BAG CLIPPER) Anatomical Region Laterality Modality Body, Chest N/A Computed Radiogr aphy 05/03/2021 12:1 9 PM JUTE BAG CLIPPER Narrative 05/03/2021 12:21 PM JUTE BAG CLIPPER EXAM DESCRIPTION: ?? XR CHEST 1 VIEW REASON FOR STUDY: ?? pneumothorax ?? POST BIOPSY ?? TECHNIQUE: ?? Frontal ??radiographic view of the chest acquired. COMPARISON: ?? 04/28/2020 FINDINGS: The heart size is upper limits of normal. ??There are atherosclerotic changes of the aorta. ??The pulmonary vasculature and mediastinum are grossly stable. ?? There is no definite evidence of a pneumothorax. ??There is no definite evidence of focal consolidation or pleural effusion. ??There are mild patchy bibasilar airspace opacities. There is a mild dextroscoliotic curvature of the spine with degenerative changes. ??Postsurgical changes involving the cervical spine are again noted. IMPRESSION: ?? 1. ?? No definite evidence of a pneumothorax. 2. ?? Mild patchy bibasilar airspace opacities, which is likely related to subsegmental atelectasis and scarring. THIS IS AN ELECTRONICALLY VERIFIED FINAL REPORT 05/03/2021 12:21 PM - Electronically signed by ??Autumn Whalen D.O. PS D: ??05/03/2021 12:21 PM T: Report ID: [id number] Reading Location: ??[id number] Procedure Note Autumn Whalen, DO - 05/03/2021 EXAM DESCRIPTION: XR CHEST 1 VIEW REASON FOR STUDY: pneumothorax POST BIOPSY TECHNIQUE: Frontal radiographic view of the chest acquired. COMPARISON: 04/28/2020 FINDINGS: The heart size is upper limits of normal. There are atheroscleroticchanges of the aorta. The pulmonary vasculature and mediastinum are grosslystable. There is no definite evidence of a pneumothorax. There is no definite evidence of focal consolidation or pleural effusion. There are mildpatchy bibasilar airspace opacities. There is a mild dextroscoliotic curvature of the spine with degenerative changes. Postsurgical changes involving the cervical spine are againnoted. IMPRESSION: 1. No definite evidence of a pneumothorax. 2. Mild patchy bibasilar airspace opacities, which is likely related to subsegmental atelectasis and scarring. THIS IS AN ELECTRONICALLY VERIFIED FINAL REPORT 05/03/2021 12:21 PM - Electronically signed by Autumn Wahlen D.O. PS T: Report ID: [id number] Reading Location: [id number] us Autumn Whalen DO IMG XR PROCEDURES Final R esult * Surgical pathology (05/03/2021 10:33 AM JUTE BAG CLIPPER) Tissue (Lung Biopsy) 05/03/2021 9:39 AM JUTE BAG CLIPPER Narrative PATHOLOGY [facility] - 05/04/2021 9:57 AM JUTE BAG CLIPPER [facility] Department of Pathology [address] [place] [address] ?? Note to Patients: ??This report may contain a detailed description of human tissue sent by a health care provider to the laboratory for pathologic evaluation. ??The content of this report is essential for diagnosis and may provide important critical findings. ??This information may be unfamiliar to patients to review without a medical professional present. ?? It is advised that the patient review this report in the presence of a health care provider who can answer questions and explain the details. Final Report Patient Name: PEG SON : ??1950 (Age: 70) Gender: ??F Address: ??[address] [place], [place] [address] [facility] #: [id number] Service: DEFAULT Location: Patient Type: [facility] ANCILLARY ? Taken: 05/03/2021 Received: 05/03/2021 Accessioned: 05/03/2021 Reported: 05/04/2021 Physician(s): Autumn Whalen, MD Gaudencio Millard M.D. Diagnosis: Lung, right lower lobe lesion, CTguided biopsy: - ?Alveolated tissue with thickening of fibrous septae - ? No evidence of atypia or malignancy Leila Pulliam MD, PhD Report Electronically Reviewed and Signed Out By ??Leila Pulliam MD, PhD 05/04/2021 09:57:26 Specimen(s) Received: A: Lung, ??biopsy right lower lobe lesion Intraoperative Diagnosis: Right lower lobe of lung, CT-guided core biopsy: Touch prepepisode one: Pass one: Scant cellularity low-grade/intermediate for malignancy . Reported to Dr. Whalen by Rama Pulliam M.D. at 10:04 AM. Pass two low-grade cellularity. ??Tumor passes for permanent only . Reported to Dr. Whalen by Rama Pulliam M.D. at 10:08 AM. ??Leila Pulliam MD, PhD ?? Microscopic Description: Microscopic examination substantiates the final diagnosis. Clinical History: The patient is a 70-year-old woman who underwent a CT scan of the chest in February 2021 with findings of a somewhat bilobed pleural based masslike opacity along posterior aspect of right lower lobe which was indeterminate for fibrosis versus malignancy. A PET scan in March 2021 demonstrated low FDG avidity. Gross Description The specimen container is labeled with the patient's name and right lower lobe lung lesion . ??Received in formalin are multiple friable threadlike strands soft white pink tissue which range in length from 0.2-0.6 cm and are less than 0.1 cm in diameter. Touch preparations are made the time of the procedure. ??This tissue is submitted entirely in cassette A1. black/05/03/2021 12:00 ??TOBIAS Castillo us Padmini Trinh MD LAB PATHOLOGY ORDERABLES Destiney odell Result PATHOLOGY [facility] * CT Lung Needle Biopsy Right (05/03/2021 10:31 AM JUTE BAG CLIPPER) Anatomical Region Laterality Modality Lung N/A Computed Tomogra phy, Computed Radiography 05/03/2021 10:4 0 AM JUTE BAG CLIPPER Addenda Addendum by Autumn Whalen DO on 05/04/2021 10:45 AM JUTE BAG CLIPPER ADDENDUM: This addendum report supersedes the original report dated Pathology impression: Alveolated tissue with thickening of fibrous septa. ?? No evidence of atypia or malignancy. Follow-up CT in 6 months is recommended to assess for stability of this nodule as well as the other previously visualized pulmonary nodules as clinically indicated. END OF ADDENDUM REPORT THIS IS AN ELECTRONICALLY VERIFIED FINAL REPORT 05/04/2021 10:45 AM ??Addendum Electronically signed by Autumn Whalen D.O. PS D: ??05/04/2021 10:44 AM T: Report ID: [id number] Reading Location: ??[id number] Narrative 05/03/2021 10:50 AM JUTE BAG CLIPPER EXAM DESCRIPTION: ?? CT NEEDLE BIOPSY LUNG RIGHT REASON FOR STUDY: ?? RLL Lesion ?? Right lower lobe lung lesion requiring CT guided biopsy ?? COMPARISON: 03/24/2021 PERFORMING PROVIDER: Autumn Whalen D.O. ANESTHESIA: 1. ??Local Anesthesia: ?? 10 ??mL ?? lidocaine 2. ??IV conscious Sedation: ?? 0.5 ?? mg ?Versed , ?? 50 ?? mcg ?Fentanyl TECHNIQUE/FINDINGS: The procedure and complications were discussed with the ?? patient ??and informed consent by the ?? patient ??was obtained. The patient was placed ?? left lateral decubitus ??and a limited CT of the ?? chest ??was performed. ??A radiopaque marker was placed over the region of interest. ??A timeout was performed to verify patient identity and procedure. The patient was monitored before, during and after the procedure by ?? a qualified radiology nurse . ??Conscious sedation was administered as described above. The site was prepped and draped in a sterile fashion. ??Local anesthesia was provided at the cutaneous surface and along the biopsy track. ??A ?? 17 ??gauge needle introducer was advanced in stages under CT guidance. Needle placement was documented with CT images. ?? 6 ??core samples were obtained using a ?? 18 ?? gauge biopsy gun. ??The samples were sent to the pathology service. ??Final pathology pending. ??A final post biopsy image showed small amount of hemorrhage in the right lower lobe anterior to the right lower lobe nodule. The patient tolerated the procedure well. ??The patient was transferred to the holding area in stable condition. FLUOROSCOPY TIME: ?? 57 fluoroscopic images were obtained. CTDIvol*mGy: 42.79 L. DLP: 61.6 mGycm PROCEDURE TIME: ?? 45 minutes IMPRESSION: Successful CT guided biopsy of the ?? right lower lobe nodule ??as described above with a small amount of postprocedural hemorrhage in the right lower lobe anterior to the right lower lobe pulmonary nodule. THIS IS AN ELECTRONICALLY VERIFIED FINAL REPORT 05/03/2021 10:50 AM - Electronically signed by ??Autumn Whalen D.O. PS D: ??05/03/2021 10:50 AM T: Report ID: [id number] Reading Location: ??[id number] Procedure Note Autumn Whalen, DO - 05/03/2021 EXAM DESCRIPTION: CT NEEDLE BIOPSY LUNG RIGHT REASON FOR STUDY: RLL Lesion Right lower lobe lung lesion requiring CT guided biopsy COMPARISON: 03/24/2021 PERFORMING PROVIDER: Autumn Whalen D.O. ANESTHESIA: 1. Local Anesthesia: 10 mL lidocaine 2. IV conscious Sedation: 0.5 mg Versed , 50 mcg Fentanyl TECHNIQUE/FINDINGS: The procedure and complications were discussed with the patient and informed consent by the patient was obtained. The patient was placed left lateral decubitus and a limited CT of the chest was performed. A radiopaque marker was placed over the region of interest. A timeout was performed to verify patient identity andprocedure. The patient was monitored before, during and after the procedure by a qualified radiology nurse . Conscious sedation was administered asdescribed above. The site was prepped and draped in a sterile fashion. Local anesthesiawas provided at the cutaneous surface and along the biopsy track. A 17gauge needle introducer was advanced in stages under CT guidance. Needleplacement was documented with CT images. 6 core samples were obtained using a18 gauge biopsy gun. The samples were sent to the pathology service. Final pathology pending. A final post biopsy image showed small amount of hemorrhage in the right lower lobe anterior to the right lower lobenodule. The patient tolerated the procedure well. The patient was transferred tothe holding area in stable condition. FLUOROSCOPY TIME: 57 fluoroscopic images were obtained. CTDIvol*mGy: 42.79 L. DLP: 61.6 mGycm PROCEDURE TIME: 45 minutes IMPRESSION: Successful CT guided biopsy of the right lower lobe nodule as described above with a small amount of postprocedural hemorrhage in the right lowerlobe anterior to the right lower lobe pulmonary nodule. THIS IS AN ELECTRONICALLY VERIFIED FINAL REPORT 05/03/2021 10:50 AM - Electronically signed by Autumn KING T: Report ID: [id number] Reading Location: [place] [address] Padmini Trinh MD IMG CT PROCEDURES Edited Resu lt - Final * (ABNORMAL) Differential, auto (05/03/2021 7:58 AM JUTE BAG CLIPPER) Pathologist [facility] Neutrophil abs 8.6(H) 1.7 - 6.5 K/cumm [facility] Imm gran abs 0.0 0.0 - 0.1 K/cumm [facility] Lymphocyte abs 2.0 0.8 - 3.3 K/cumm [facility] Monocyte abs 1.3(H) 0.2 - 0.8 K/cumm [facility] Eosinophil abs 0.2 0.0 - 0.5 K/cumm [facility] Basophil abs 0.0 0.0 - 0.1 K/cumm [facility] Neutrophil pct 70.8 % [facility] Comment: Interpretive Data Percent cell count reference ranges are not reported, since discordance with absolute values may lead to misinterpretation of CBC data. Current Interpretive Data was last revised on 2017. Imm gran pct 0.3 % [facility] Comment: Interpretive Data Percent cell count reference ranges are not reported, since discordance with absolute values may lead to misinterpretation of CBC data. Current Interpretive Data was last revised on 2017. Lymphocyte pct 16.6 % [facility] Comment: Interpretive Data Percent cell count reference ranges are not reported, since discordance with absolute values may lead to misinterpretation of CBC data. Current Interpretive Data was last revised on 2017. Monocyte pct 10.3 % [facility] Comment: Interpretive Data Percent cell count reference ranges are not reported, since discordance with absolute values may lead to misinterpretation of CBC data. Current Interpretive Data was last revised on 2017. Eosinophil pct 1.8 % [facility] Comment: Interpretive Data Percent cell count reference ranges are not reported, since discordance with absolute values may lead to misinterpretation of CBC data. Current Interpretive Data was last revised on 2017. Basophil pct 0.2 % [facility] Comment: Interpretive Data Percent cell count reference ranges are not reported, since discordance with absolute values may lead to misinterpretation of CBC data. Current Interpretive Data was last revised on 2017. Blood 05/03/2021 7:58 AM JUTE BAG CLIPPER 05/03/2021 8:01 AM JUTE BAG CLIPPER Padmini Trinh MD LAB BLOOD ORDERABLES Final Re sult Performing Organization Address [facility]/ZIP Co de Phone Number [address] [place] [address] * (ABNORMAL) CBC with auto differential (05/03/2021 7:58 AM JUTE BAG CLIPPER) WBC 12.2(H) 3.8 - 9.9 K/cumm [facility] Hgb 13.8 11.9 - 15.5 g/dL [facility] Hct 42.6 35.6 - 45.5 % [facility] Plt 181 150 - 400 K/cumm [facility] MPV 10.7 9.1 - 12.3 fL [facility] RBC 4.40 3.90 - 5.20 M/cumm [facility] MCV 96.8(H) 81.3 - 96.4 fL [facility] MCH 31.4 27.1 - 33.3 pg [facility] MCHC 32.4 32.3 - 35.7 g/dL [facility] RDW CV 12.8 11.1 - 14.9 % [facility] RDW SD 46.3 35.7 - 48.1 fL [facility] NRBC abs 0.00 0.00 - 0.01 K/cumm [facility] Blood 05/03/2021 7:58 AM JUTE BAG CLIPPER 05/03/2021 8:01 AM JUTE BAG CLIPPER Padmini Trinh MD LAB BLOOD ORDERABLES Final Re sult Performing Organization Address [facility]/ZIP Co de Phone Number [facility] [address] [place] [address] * Protime-INR (05/03/2021 7:57 AM JUTE BAG CLIPPER) PT 13.9 12.0 - 14.6 sec [facility] INR 1.1 0.9 - 1.2 [facility] Comment: Ref Range High Interpretive data Oral anticoagulant therapeutic ranges: Venous thromboembolism prophylaxis or treatment: 2.0-3.0 CARDIOLOGY Standard range: 2.0-3.0 High-intensity range: 2.5-3.5 Refer to indication-specific guidelines for appropriate target ranges for prosthetic heart valve replacement. Current interpretive data was last revised on 2019. Blood 05/03/2021 7:57 AM JUTE BAG CLIPPER 05/03/2021 8:01 AM JUTE BAG CLIPPER Padmini Trinh MD LAB BLOOD ORDERABLES Final Re sult Performing Organization Address [facility] Co de Phone Number [place] [address] [place] [address] * aPTT (05/03/2021 7:57 AM JUTE BAG CLIPPER) aPTT 36 22 - 37 sec [facility] Comment: Interpretive data aPTT test has not been evaluated for monitoring heparin therapy. The anti-Xa is the preferred test. Current interpretive data was last revised on 2019. Blood 05/03/2021 7:57 AM JUTE BAG CLIPPER 05/03/2021 8:01 AM JUTE BAG CLIPPER Padmini Trinh MD LAB BLOOD ORDERABLES Final Re sult Performing Organization Address [facility] Co de Phone Number [place] [address] [place] [address] documented in this encounter Visit Diagnoses Diagnosis Lung mass Swelling, mass, or lump in chest Shortness of breath Shortness of breath documented in this encounter Administered Medications Inactive Administered Medications - up to 3 most recent administrations Medication Order MAR Action Action Date Dose Rate Site fentaNYL (SUBLIMAZE) preservative free injection intravenous, Code/trauma/sedation medication, Starting on Sun05/03/21 at 0950 Given 05/03/2021 9:50 AM JUTE BAG CLIPPER 50 mcg Right Forearm HYDROcodone-acetaminophen (NORCO) 5-325 mg per tablet 1 tablet 1 tablet, oral, Once, On Sun05/03/21 at 1300, For 1 dose, Indications: PainIndications:Pain Given 05/03/2021 12:49 PM JUTE BAG CLIPPER 1 tablet midazolam (VERSED) 1 mg/mL preservative free injection intravenous, Administer over 2 Minutes, Code/trauma/sedation medication, Starting on Sun05/03/21 at 0950, Intra-Procedure (IR) Given 05/03/2021 9:50 AM JUTE BAG CLIPPER 0.5 mg Right Forearm documented in this encounter Discontinued Medications Medication Sig Discontinue Reason Start Date End Da te albuterol HFA (PROVENTIL HFA,VENTOLIN HFA,PROAIR HFA) 90 mcg/actuation inhaler 2 puffs every 4 (four) hours as needed Alternate therapy 02/27/2021 05/03/2021 documented as of this encounter Historical Medications * This list may reflect changes made after this encounter. famotidine (PEPCID) 10 mg tablet Take 1 tablet (10 mg total) by mouth 2 (two) times a day added in this encounter Orders Discharge Count Last Ordered Date First Orde red Date DISCHARGE PATIENT 1 05/03/2021 documented in this encounter Care Teams Detective Youth [employer] Relationship Specialty Start Date End Date Gaudencio Miranda MD [address] [place] [address] PCP - General 07/25/16 Herberth Rodgers MD [address] [facility] [address] [address] Surgeon Surgery 02/24/21 documented as of this encounter
--- OUTSIDE RECORDS SUMMARY | 2024-03-07 14:12 | XMS_ITS | Encounter Summary ---
Author Organization [facility] Medical Group Address [address] [facility] [address] [place] [address] Care Team Providers Care Manager Infrastructure Name Role Phone Gaudencio Miranda MD Primary Care Provider [phone] Herberth Rodgers MD Unavailable [phone] Reason for Referral * Procedure (Routine) - Closed Specialty Diagnoses / Procedures Referred By Contac t Referred To Contact Diagnoses Chronic obstructive pulmonary disease, unspecified COPD type (HCC) Procedures Pulmonary Function Test -[facility]; Full PFT in PFT Lab w/Stress Ox/6 Min Walk Test Padmini Trinh MD [address] [place] [address] [address] [place] [address] Phone: tel: fax: Referral ID Status Reason Start Date Expiration Date Visits Re quested Visits Authorized [id number] Closed 12/12/2021 01/11/2023 1 1 Reason for Visit * Reason Comments COPD Follow up Encounter Details Date Type Department Care Team (Late st Contact Info) Description 12/12/2021 4:00 PM CDT Office Visit [facility] Pulmonology [address] [facility] [address] [place] [address] Padmini Trinh MD [address] [facility] [facility] [address] [place] [address] Chronic obstructive pulmonary disease, unspecified COPD type (HCC) (Primary Dx); Pulmonary nodule; Heart failure with preserved left ventricular function (HFpEF) (CMS/HCC) (HCC); Non-seasonal allergic rhinitis due to other allergic trigger; Chronic respiratory failure with hypoxia and hypercapnia (CMS/HCC) (HCC); Muscular deconditioning Social History Tobacco Use Types [...] on file 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 PULMONARY CLINIC NOTE Visit Date: 12/12/2021 INTERVAL HISTORY: Presents today for follow-up of COPD/emphysema Pulmonary nodule Chronic respiratory failure with hypoxia Been having some URI type symptoms over past few weeks. Still congestion but improving. Overall respiratory status otherwise unchanged Dyspnea with exertion No dyspnea at rest Some wheezing. Minimal cough. She was unable to get portable oxygen concentrator she is not using her many portable tanks as she does not leave the house very often and is not very mobile. Using 1-2L oxygen at night. Has yearly allergic rhinitis. Takes cherrie and phenylephrine nasal spray. HPI: Patient is a 71 y.o. female w/ PMH of CKD 5, h/o COPD, obesity his issues seen on hospital in [facility] 2020 for postop hypoxia. She initially presented [...] for behavioral problems. OBJECTIVE: Physical Exam: Vitals: 12/12/21 1601 BP: 138/63 BP Location: Left arm Patient Position: Sitting Pulse: 54 Resp: 18 SpO2: (!) 87% Physical Exam Constitutional: General: She is awake. [...] Behavior: Behavior normal. Data Review: Lung biopsy: Personally reviewed 11/20/21 CT Chest, lung nodules including lower lobe mass/nodule is stable. Pulmonary Function Testing: May 2021 PFT shows severe obstruction as well as restriction ASSESSMENT AND PLAN Pulmonary nodules and lung mass Has a few pulmonary nodules, largest lesion is right lower lobe nodule/mass. At this point suspecting probably rounded atelectasis. Was not very FDG avid on PET. Did eventually undergo CT-guided biopsy in April 2021 which was unrevealing. Will repeat chest CT to follow in 1 year COPD Stage III COPD by spirometry but stage IV given oxygen use. Continue trelegy and p.r.n. albuterol, she is not using inhalers very often Discussed pulmonary rehab referral of patient but she has difficulty getting to Pulmonary Rehab frequently. Chronic respiratory failure hypoxia and hypercapnia Due to COPD, pulmonary edema/ESRD, obesity hypoventilation, restrictive lung disease, etc Only using 1-2L. allergic rhinitis Continue Cherrie Deconditioning/Obesity with Restrictive lung disease and obesity hypoventilation Patient's is very limited mobility and does not do much exercise at all is very deconditioned. Again counseled on importance of exercise and weight loss improving cardiac/muscular conditioning. H/o tobacco abuse 100 pack year history, quit 2015. Continue abstinence CKD and HFpEF Follows with Nephrology. Continue Lasix. Keep euvolemic Padmini Trinh MD Pulmonary Medicine There may be syntax/grammatical errors in this note due to the use of voice recognition software. documented in this encounter Plan of Treatment Not on file documented as of this encounter Results * (ABNORMAL) Pulmonary Function Test - (06/22/2022 3:05 PM CDT) FVC POST 2.11(L) 2.26 - 4.06 L 06/22/2022 2:57 PM CDT [facility] FVC PRE 2.00(L) 2.26 - 4.06 L 06/22/2022 2:57 PM CDT [facility] FEV1 POST 1.57(L) 1.72 - 3.04 L 06/22/2022 2:57 PM CDT [facility] FEV1 PRE 1.52(L) 1.72 - 3.04 L 06/22/2022 2:57 PM CDT [facility] [id number] 74.46 63.52 - 89.00 % 06/22/2022 2:57 PM CDT [facility] [id number] 76.23 63.52 - 89.00 % 06/22/2022 2:57 PM CDT [facility] DUK52-22% POST 1.17 0.85 - 3.43 L/s 06/22/2022 2:57 PM CDT [facility] CVW50-86% PRE 0.86 0.85 - 3.43 L/s 06/22/2022 2:57 PM CDT [facility] PEF POST 5.17 4.72 - 7.68 L/s 06/22/2022 2:57 PM CDT [facility] PEF PRE 4.96 4.72 - 7.68 L/s 06/22/2022 2:57 PM CDT [facility] FET 100% POST 6.19 sec 06/22/2022 2:57 PM CDT [facility] FET 100% PRE 6.91 sec 06/22/2022 2:57 PM CDT [facility] FIVC POST 1.83(L) 2.33 - 3.71 L 06/22/2022 2:57 PM CDT [facility] FIVC PRE 1.77(L) 2.33 - 3.71 L 06/22/2022 2:57 PM CDT [facility] FIF50% POST 2.21 L/s 06/22/2022 2:57 PM CDT [facility] FIF50% PRE 2.50 L/s 06/22/2022 2:57 PM CDT [facility] DLCOc SB 12.12(L) 17.59 - 29.06 ml/(min*mm Hg) 06/22/2022 2:57 PM CDT [facility] VA 3.09(L) 5.46 - 5.46 L 06/22/2022 2:57 PM CDT [facility] DLCO/VA PRE 3.93 2.90 - 5.42 ml/(min*mm Hg*L) 06/22/2022 2:57 PM CDT [facility] IC SB 1.53(L) 2.37 - 2.37 L 06/22/2022 2:57 PM CDT [facility] VC PRE 1.78(L) 2.33 - 3.71 L 06/22/2022 2:57 PM CDT [facility] TLC PRE 4.24(L) 4.62 - 6.60 L 06/22/2022 2:57 PM CDT [facility] RV PRE 2.47 1.72 - 2.87 L 06/22/2022 2:57 PM CDT [facility] FRC PL PRE 2.71 2.12 - 3.76 L 06/22/2022 2:57 PM CDT [facility] ERV PRE 0.24(L) 0.65 - 0.65 L 06/22/2022 2:57 PM CDT [facility] IC PRE 1.53(L) 2.37 - 2.37 L 06/22/2022 2:57 PM T [facility] RAW PRE 6.75(H) 3.06 - 3.06 cmH2O*s/L 06/22/2022 2:57 PM T [facility] BF RES 18.39 BPM 06/22/2022 2:57 PM T [facility] Anatomical Region Laterality Modality PFT 06/22/2022 2:04 PM CDT Narrative 06/23/2022 5:31 PM CDT ?? Spirometry shows decreased FEV1 and FVC but normal ratio. ?? Flow volume loops with concave expiratory ?? Lung volumes showed mildly decreased TLC. ??Significantly decreased ERV ?? Uncorrected DLCO is moderately reduced ?? Patient was not able to ambulate enough for walk test but with her short transitioned from chair to chair her SpO2 did drop to 84% and she required 1 L oxygen with exertion. Electronically signed by Padmini Trnih MD Padmini Trinh MD PFT ORDERABLES Final Result documented in this encounter Visit Diagnoses Diagnosis Chronic obstructive pulmonary disease, unspecified COPD type (HCC)- Primary Pulmonary nodule Other diseases of lung, not elsewhere classified Heart failure with preserved left ventricular function (HFpEF) (CMS/HCC) (HCC) Non-seasonal allergic rhinitis due to other allergic trigger Chronic respiratory failure with hypoxia and hypercapnia (CMS/HCC) (HCC) Muscular deconditioning Muscular wasting and disuse atrophy, not elsewhere classified Chronic obstructive pulmonary disease, unspecified COPD type (HCC) documented in this encounter Care Teams Manager Infrastructure Relationship Specialty Start Date End Date Gaudencio Miranda MD [address] [place] [address] PCP - General 07/25/16 Herberth Rodgers MD [address] [address] Surgeon Surgery 02/24/21 documented as of this encounter
--- OUTSIDE RECORDS SUMMARY | 2024-03-07 14:12 | XMS_ITS | Encounter Summary ---
Author Organization [facility] Healthcare Address [address] [place] [address] Care Team Providers Care Video Editor Name Role Phone Gaudencio Miranda MD Primary Care Provider [phone] Herberth Rodgers MD Unavailable [phone] Reason for Referral * MRI/CAT/PET Scan (Routine) - Closed Specialty Diagnoses / Procedures Referred By Mallory valentino Referred To Contact Radiology Diagnoses Pulmonary nodule Procedures PET/CT FDG Skull to Thigh Padmini Trinh MD [facility] [address] [place] [address] Phone: tel: fax: [address] [phone] Referral ID Status Reason Start Date Expiration Date Visits Re quested Visits Authorized [id number] Closed 03/16/2021 04/30/2021 2 2 RAFT PNEUDRAULICS REPAIRER Reason for Visit * MRI/CAT/PET Scan (Routine) - Closed Specialty Diagnoses / Procedures Referred By Mallory valentino Referred To Contact Radiology Diagnoses Pulmonary nodule Procedures PET/CT FDG Skull to Thigh Padmini Trinh MD [address] [facility] [address] [place] [address] Phone: tel: fax: [address] [phone] Referral ID Status Reason Start Date Expiration Date Visits Re quested Visits Authorized [id number] Closed 03/16/2021 04/30/2021 2 2 Encounter Details Date Type Department Care Team (Latest Contact Info) Description 03/24/2021 12:12 PM AIRCRAFT PNEUDRAULICS REPAIRER - 03/24/2021 11:59 PM AIRCRAFT PNEUDRAULICS REPAIRER Hospital Encounter [facility] [address] [address] Pulmonary nodule Discharge Disposition: Discharge to home or self [...] on file Legal Sex Female 12:59 AM AIRCRAFT PNEUDRAULICS REPAIRER Gender Identity Not on file Sexual Orientation Not on file documented as of this encounter Medications at Time of Discharge calcitRIOL (ROCALTROL) 0.25 mcg capsule Take 1 capsule (0.25 mcg total) by mouth every other day -W-08/30/2020 cholecalciferol (VITAMIN D-3) 2000 unit tablet Take 1 tablet (2,000 Units total) by mouth daily DULoxetine DR (CYMBALTA) 60 mg capsule Take 1 capsule (60 mg total) by mouth nightly 11/11/2020 fexofenadine (DEVAUGHN) 180 mg tablet Take 1 [...] (200 mcg total) by mouth daily 05/28/2023 albuterol HFA (PROVENTIL HFA,VENTOLIN HFA,PROAIR HFA) 90 mcg/actuation inhaler 2 puffs every 4 (four) hours as needed 02/27/2021 05/03/2021 fluticasone propion-salmetero L (ADVAIR DISKUS) 250-50 mcg/dose diskus inhaler Inhale 1 puff 2 (two) times a day Rinse mouth with water after use. Do not swallow. 1 each 1 02/27/2021 03/28/2021 documented as of this encounter Discharge Disposition Disposition Code Departure Means Destination Discharge to home or self care documented in this encounter Plan of Treatment Not on file documented as of this encounter Procedures Procedure Name Priority Date/Time Associated Diagnosis Comments PET/CT FDG SKULL TO THIGH Schedule Routine, Read Routine (OP Routine) 03/24/2021 1:51 PM AIRCRAFT PNEUDRAULICS REPAIRER Pulmonary nodule POCT GLUCOSE DEVICE Routine 03/24/2021 12:24 PM AIRCRAFT PNEUDRAULICS REPAIRER documented in this encounter Results * PET/CT FDG Skull to Thigh (03/24/2021 1:51 PM AIRCRAFT PNEUDRAULICS REPAIRER) Anatomical Region Laterality Modality N/A Positron Emissio n Tomography (PET) 03/24/2021 1:59 PM AIRCRAFT PNEUDRAULICS REPAIRER Narrative 03/24/2021 2:54 PM AIRCRAFT PNEUDRAULICS REPAIRER EXAM DESCRIPTION: ?? PET/CT FDG SKULL TO [...] PM T: ??03/24/2021 2:54 PM Report ID: [id number] Reading Location: ??[id number] Procedure Note Elie Braswell MD - 03/24/2021 [...] Elie Braswell M.D. LB: MARGIE Report ID: [id number] Reading Location: [place] [address] us Padmini Trinh MD IMG PET PROCEDURES Final Resu lt * (ABNORMAL) POCT glucose (03/24/2021 12:24 PM AIRCRAFT PNEUDRAULICS REPAIRER) Pathologist [facility] Glucose, POC 64(L) 70 - 199 mg/dL SIMON ELIZABETH Comment:Testing performed by : [facility], [address] [place] [address]., [id number] Glucose comment 1 Use This Result SIMON ELIZABETH Comment:Testing performed by : [facility], [address], [place]., [address] Blood 03/24/2021 12:2 4 PM AIRCRAFT PNEUDRAULICS REPAIRER 03/24/2021 12:24 PM AIRCRAFT PNEUDRAULICS REPAIRER Gaudencio Miranda MD LAB POCT ORDERABLES - DEVICE Final Result SIMON [address] [facility] Department [place] [address] documented in this encounter Visit Diagnoses Diagnosis Pulmonary nodule Other diseases of lung, not elsewhere classified documented in this encounter Administered Medications Inactive Administered Medications - up to 3 most recent administrations Medication Order MAR Action Action Date Dose Rate Site fludeoxyglucose F-18 (FDG) injection 11.7 millicurie 11.7 millicurie, intravenous, Once in imaging, radiopharmaceutical, Starting on Bernarda 03/24/21 at 1226, For 1 dose Given 03/24/2021 12:26 PM AIRCRAFT PNEUDRAULICS REPAIRER 11.7 millicuries documented in this encounter Orders Medications Ordered That Regan ht Not Have Been Administered Count Last Ordered Date First Ordered Date fludeoxyglucose F-18 (FDG) i njection 11.7 millicurie 1 03/24/2021 documented in this encounter Care Teams Video Editor Relationship Specialty Start Date End Date Gaudencio Miranda MD [address] [place] [address] PCP - General 07/25/16 Herberth Rodgers MD [address] [facility] [address] [place] [address] Surgeon Surgery 02/24/21 documented as of this encounter
--- OUTSIDE RECORDS SUMMARY | 2024-03-07 14:12 | XMS_ITS | Encounter Summary ---
Author Organization [facility] Medical [facility] Address [address] [facility] [address] [place] [address] Care Team Providers Care Case Specialist Name Role Phone Gaudencio Miranda MD Primary Care Provider [phone] Herberth Rodgers MD Unavailable [phone] Reason for Visit * Reason Comments Post-op Creation ABELARDO ROSS 02/24/21 Encounter Details Date Type Department Care Team (Late st Contact Info) Description 03/09/2021 11:00 AM HR RECEPTIONIST Office Visit [facility] Medical [facility] Vascular and Vein Surgery [address] [facility] [address] [place] [address] Khoa Perales, OCEAN FREIGHT MANAGER [address] [facility] [address] [place] [address] Chronic kidney disease, stage V (CMS/HCC) (HCC) (Primary Dx) Social History Tobacco Use Types [...] on file Legal Sex Female 12:59 AM HR RECEPTIONIST Gender Identity Not on file Sexual Orientation Not on file documented as of this encounter Last Filed Vital Signs Vital Sign Reading Time Taken Comments Blood Pressure 125/69 03/09/2021 10:30 AM HR RECEPTIONIST Pulse 57 03/09/2021 10:30 AM HR RECEPTIONIST Temperature - - Respiratory Rate - - Oxygen Saturation - - Inhaled Oxygen Concentration - - Weight 135.6 kg (299 lb) 03/09/2021 10:30 AM HR RECEPTIONIST Height 170.2 cm (5' 7 ) 03/09/2021 10:30 AM HR RECEPTIONIST Body Mass Index 46.83 03/09/2021 10:30 AM HR RECEPTIONIST documented in this encounter Progress Notes * Khoa Perales, GURMEET - 03/09/2021 11:00 AM CST Images from the original note were not included. Subjective/Objective Patient ID: Peg Son is a 70 y.o. female. Chief Complaint Post-op (Creation LUE AVF 02/24/21) History of Present Illness 70-year-old female with chronic kidney disease stage 5 returns today for scheduled postop follow-up. She is status post creation of a left brachial cephalic AV fistula on 02/24/2021 for anticipated need for hemodialysis in the near future. She states she has been doing well since her previous visithowever it was determined on physical exam that her newly created left brachial cephalic AV fistulawas thrombosed. She states her renal function has remained stable, she continues to make urine and denies any symptoms currently suggestive of acute uremia. She does have an upcoming appointment withher chief quality officer to his discuss her chronic kidney disease. Current Outpatient Medications: ??? calcitRIOL (ROCALTROL) 0.25 mcg capsule, Take 0.25 mcg by mouth every other day , Disp: , Rfl: ??? cholecalciferol (VITAMIN D-3) 2000 unit tablet, Take 2,000 Units by mouth daily , Disp: , Rfl: ??? DULoxetine DR (CYMBALTA) 60 mg capsule, Take 60 mg by mouth nightly , Disp: , Rfl: ??? fexofenadine (DEVAUGHN) 180 mg tablet, Take 180 mg by mouth daily as needed 0.5 tablet bid, Disp: , Rfl: ??? fluticasone propion-salmeteroL (ADVAIR DISKUS) 250-50 mcg/dose diskus inhaler, Inhale 1 puff 2 (two) times a day Rinse mouth with water after use. Do not swallow., Disp: 1 each, Rfl: 1 ??? furosemide (LASIX) 40 mg tablet, Take 1.5 tablets (60 mg total) by mouth nightly, Disp: 45 tablet, Rfl: 0 ??? HYDROcodone-acetaminophen (NORCO) 5-325 mg per tablet, Take 1 tablet by mouth every 6 hours , Disp: , Rfl: ??? levothyroxine (Synthroid) 200 mcg tablet, Take 200 mcg by mouth daily , Disp: , Rfl: ??? multivitamin with minerals tablet, Take 1 tablet by mouth 2 (two) times a day , Disp: , Rfl: ??? pregabalin (LYRICA) 200 mg capsule, Take 200 mg by mouth 2 (two) times a day, Disp: , Rfl: ??? primidone (MYSOLINE) 50 mg tablet, Take 50 mg by mouth nightly , Disp: , Rfl: ??? propranoloL (INDERAL) 60 mg tablet, Take 60 mg by mouth 2 times daily , Disp: , Rfl: ??? rosuvastatin (Crestor) 10 mg tablet, Take 10 mg by mouth daily , Disp: , Rfl: ??? albuterol HFA (PROVENTIL HFA,VENTOLIN HFA,PROAIR HFA) 90 mcg/actuation inhaler, 2 puffs every 4(four) hours as needed (Patient not taking: Reported on 03/15/2021), Disp: , Rfl: Allergies Allergen Reactions ??? Sulfa (Sulfonamide Antibiotics) Hives Reaction: Hives, ??? Aspirin Swelling Reaction: Swelling, ??? Peanut Unknown Physical Exam Constitutional: Alert and oriented. Eyes: Extraocular movements full, sclerae anicteric. HENT: Head atraumatic and normocephalic. Neck is supple. No carotid bruits. Chest: Effort normal. Breath sounds normal. Cardiovascular: S1 and S2 are normal. No murmurs, rubs or gallops appreciated. Extremities: Thrombosed left brachial cephalic AV fistula with absent bruit and thrill throughout. Surgical incisions healed. Abdominal: Soft, nontender, no masses. Normal bowel sounds. Musculoskeletal: Normal range of motion. Neurologic: Cranial nerves 2-12 intact. Strength and sensation intact bilaterally. Skin: Warm and dry. No rashes. No discoloration. Hematologic/Lymphatic: No adenopathy, no ecchymoses. Psychiatric: Normal mood and affect. Behavior normal.Judgment normal. Assessment/Plan Diagnoses and all orders for this visit: Chronic kidney disease, stage V (CMS/HCC) (HCC) (N18.5) (Primary) Assessment & Plan: Impression: Patient with recent left brachial cephalic AV fistula creation on 02/24/2021. Unfortunately her AV fistula has thrombosed however her chronic kidney disease remains stable per patient report. She does have an upcoming appointment with her chief quality officer. I discussed further treatment withthe patient and explained that she will need a AV graft creation when determine by her nephrologistthat she will require hemodialysis. Plan: Patient states she would prefer to contact our office when determined that she will require hemodialysis for AV graft creation. Portions of this note was created with [employer] voice recognition software. Trial Court Judge variances may be present. Khoa Perales NP Cosigned by Herberth Rodgers MD at 03/28/2021 5:46 PM HR RECEPTIONIST RECEPTIONIST RECEPTIONIST documented in this encounter Miscellaneous Notes * Assessment & Plan Note - Khoa Perales NP - 03/28/2021 1:40 PM HR RECEPTIONIST Associated Problem(s): Chronic kidney disease, stage V (CMS/HCC) ([facility]) Impression: Patient with recent left brachial cephalic AV fistula creation on 02/24/2021. Unfortunately her AV fistula has thrombosed however her chronic kidney disease remains stable per patient report. She does have an upcoming appointment with her chief quality officer. I discussed further treatment withthe patient and explained that she will need a AV graft creation when determine by her nephrologistthat she will require hemodialysis. Plan: Patient states she would prefer to contact our office when determined that she will require hemodialysis for AV graft creation. RECEPTIONIST documented in this encounter Plan of Treatment Not on file documented as of this encounter Visit Diagnoses Diagnosis Chronic kidney disease, stage V (CMS/HCC) (HCC)- Primary Chronic kidney disease, Stage V documented in this encounter Discontinued Medications Medication Sig Discontinue Reason Start Date End Da te albuterol HFA (PROVENTIL HFA,VENTOLIN HFA,PROAIR HFA) 90 mcg/actuation inhaler Inhale 2 puffs every 4 (four) hours as needed for wheezing Therapy completed 02/27/2021 03/09/2021 documented as of this encounter Care Teams Case Specialist Relationship Specialty Start Date End Date Gaudencio Miranda MD [address] [place] [address] PCP - General 07/25/16 Herberth Rodgers MD [address] [facility] [address] [address] Surgeon Surgery 02/24/21 documented as of this encounter
--- OUTSIDE RECORDS SUMMARY | 2024-03-07 14:12 | XMS_ITS | Encounter Summary ---
Author Organization [facility] Address [address] [place] [address] Care Team Providers Care Cold Strip Roller Name Role Phone Gaudencio Miranda MD Primary Care Provider [phone] Herberth Rodgers MD Unavailable [phone] Reason for Referral * MRI/CAT/PET Scan (Routine) - Closed Specialty Diagnoses / Procedures Referred By Mallory valentino Referred To Contact Radiology Diagnoses Lung mass Procedures CT Chest WO Contrast Padmini Trinh MD [facility] [address] [place] [address] Phone: tel: fax: [address] [address] Referral ID Status Reason Start Date Expiration Date Visits Re quested Visits Authorized [id number] Closed 07/11/2021 08/10/2022 1 1 Reason for Visit * MRI/CAT/PET Scan (Routine) - Closed Specialty Diagnoses / Procedures Referred By Contac t Referred To Contact Radiology Diagnoses Lung mass Procedures CT Chest WO Contrast Padmini Trinh MD [address] [place] [address] Phone: tel: fax: [address] [phone] Referral ID Status Reason Start Date Expiration Date Visits Re quested Visits Authorized [id number] Closed 07/11/2021 08/10/2022 1 1 Encounter Details Date Type Department Care Team (Latest Contact Info) Description 11/17/2021 1:50 PM CDT - 11/17/2021 11:59 PM CDT Hospital Encounter [facility] [place] [address] [place] [address] [place] [address] Lung mass Discharge Disposition: Discharge to home or self [...] on file Legal Sex Female 12:59 AM [facility] Gender Identity Not on file Sexual Orientation [...] CONTRAST Schedule Routine, Read Routine (OP Routine) 11/17/2021 2:00 PM CDT Lung mass documented in this encounter Results * CT [...] ??Recent guidelines by the Fleischner Society (Radiology 321331,2017) divides patient into low vs. high risk [...] immunosuppression, or patients with known primary cancer. http://pubs.rsna.org/doi/pdf/10.1148/radiol.6432867522 THIS IS AN ELECTRONICALLY VERIFIED FINAL REPORT 11/20/2021 1:41 PM - Electronically signed by ??Matthias Redd M.D. RW: SOFIA D: ??11/20/2021 1:41 PM T: ??11/20/2021 1:41 PM Report ID: [id number] Reading Location: ??[id number] Procedure Note Matthias Redd MD - 11/20/2021 [...] Recent guidelines by the Fleischner Society (Radiology 743825,2017)divides patient into low vs. high risk (for [...] immunosuppression, or patients with known primary cancer. http://pubs.rsna.org/doi/pdf/10.1148/radiol.7907096814 THIS IS AN ELECTRONICALLY VERIFIED FINAL REPORT 11/20/2021 1:41 PM - Electronically signed by Matthias Redd M.D. RW: SOFIA Report ID: [id number] Reading Location: [place] [address] Padmini Trinh MD IMG CT PROCEDURES Final Resul t documented in this encounter Visit Diagnoses Diagnosis Lung mass Swelling, mass, or lump in chest documented in this encounter Care Teams Cold Strip Roller Relationship Specialty Start Date End Date Gaudencio Miranda MD [address] [place] [address] PCP - General 07/25/16 Herberth Rodgers MD [address] [address] Surgeon Surgery 02/24/21 documented as of this encounter
--- OUTSIDE RECORDS SUMMARY | 2024-03-07 14:12 | XMS_ITS | Encounter Summary ---
Author Organization [facility] Address [address] [place] [address] Care Team Providers Care Global Compensation Manager Name Role Phone Gaudencio Miranda MD Primary Care Provider [phone] Herberth Rodgers MD Unavailable [phone] Reason for Referral * (Routine) - Closed Specialty Diagnoses / Procedures Referred By Contmarilee t Referred To Contact Diagnoses Pulmonary nodule Chronic obstructive pulmonary disease, unspecified COPD type (HCC) Procedures Pulmonary Function Test -[facility]; Full PFT in PFT Lab w/Stress Ox/6 Min Walk Test Padmini Trinh MD [address] [address] [place] [address] Phone: tel: fax: Referral ID Status Reason Start Date Expiration Date Visits Re quested Visits Authorized [id number] Closed 03/15/2021 04/14/2022 1 1 Reason for Visit * (Routine) - Closed Specialty Diagnoses / Procedures Referred By Contac t Referred To Contact Diagnoses Pulmonary nodule Chronic obstructive pulmonary disease, unspecified COPD type (HCC) Procedures Pulmonary Function Test -[facility]; Full PFT in PFT Lab w/Stress Ox/6 Min Walk Test Padmini Trinh MD [address] [place] [address] Phone: tel: fax: Referral ID Status Reason Start Date Expiration Date Visits Re quested Visits Authorized [id number] Closed 03/15/2021 04/14/2022 1 1 Encounter Details Date Type Department Care Team (Latest Contact Info) Description 06/06/2021 1:00 PM CDT - 06/06/2021 11:59 PM CDT Hospital Encounter [facility] Respiratory [address] [place] [address] Pulmonary nodule; Chronic obstructive pulmonary disease, unspecified COPD type (HCC) Discharge Disposition: Discharge to home or [...] on file Legal Sex Female 12:59 AM 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 CUTTER Gender Identity Not on file Sexual Orientation Not on file documented as of this encounter Last Filed Vital Signs Vital Sign Reading Time Taken Comments Blood Pressure - - Pulse - - Temperature - - Respiratory Rate - - Oxygen Saturation 91% 06/06/2021 1:47 PM CDT albuterol ne tx with PFT per protocol Inhaled Oxygen Concentration - - Weight - - Height - - Body Mass Index - - documented in this encounter Medications at Time of Discharge calcitRIOL (ROCALTROL) 0.25 mcg capsule Take 1 capsule (0.25 mcg total) by mouth every other day M-W-F 08/30/2020 cholecalciferol (VITAMIN D-3) 2000 unit tablet Take [...] documented in this encounter Progress Notes * Keegan Degroot - 06/06/2021 2:29 PM CDT 06/06/21 1410 Resting Information Resting HR. 57 bpm Resting SPO2 84 % Oxygen Setting Room Air Delivery Device NC 0.5 l/m 88%, 1 l/m 92% Ambulation Trials to Assess Desaturation to 88% Activity 1: Ambulated (feet) 60 feet Oxygen Setting #1 1 SPO2 (%) #1 86 % Activity 2: Ambulated (feet) 50 feet Oxygen Setting #2 2 SPO2 (%) #2 88 % Activity 3: Ambulated (feet) 70 feet Oxygen Setting #3 3 SPO2 (%) #3 96 % Post Ambulation Assessment HR Post Assessment 78 bpm Post Assessment Recommendation 1 l/m @ Rest, 3 l/m w Ex. $ Home O2 Assessment Yes Patient needs 1 l/m at rest, 3 l/m w exertion. Walked with walker, WC followed. C/O knee/leg pain and stopped 3 times. Stated that this was as far as she's walked in a long time. documented in this encounter Plan of Treatment Not on file documented as of this encounter Procedures Procedure Name Priority Date/Time Associated Diagnosis Comments PULMONARY FUNCTION TEST (PFT) Routine 06/06/2021 2:04 PM CDT Pulmonary nodule Chronic obstructive pulmonary disease, unspecified COPD type (HCC) documented in this encounter Results * (ABNORMAL) Pulmonary Function Test - (06/06/2021 2:04 PM CDT) FVC POST 1.57(L) 2.30 - 4.07 L 06/06/2021 2:05 PM CDT [facility] FVC PRE 1.40(L) 2.30 - 4.07 L 06/06/2021 2:05 PM CDT [facility] FEV1 POST 1.02(L) 1.76 - 3.11 L 06/06/2021 2:05 PM CDT [facility] FEV1 PRE 0.95(L) 1.76 - 3.11 L 06/06/2021 2:05 PM CDT [facility] [id number] 64.93 63.77 - 90.83 % 06/06/2021 2:05 PM CDT [facility] [id number] 67.57 63.77 - 90.83 % 06/06/2021 2:05 PM CDT [facility] PWH24-74% POST 0.48(L) 0.88 - 3.01 L/s 06/06/2021 2:05 PM CDT [facility] WPW39-84% PRE 0.49(L) 0.88 - 3.01 L/s 06/06/2021 2:05 PM CDT [facility] PEF POST 4.29(L) 4.76 - 7.73 L/s 06/06/2021 2:05 PM T [facility] PEF PRE 4.24(L) 4.76 - 7.73 L/s 06/06/2021 2:05 PM CDT [facility] FET 100% POST 8.96 sec 06/06/2021 2:05 PM CDT [facility] FET 100% PRE 7.58 sec 06/06/2021 2:05 PM CDT [facility] FIVC POST 1.60(L) 2.36 - 3.74 L 06/06/2021 2:05 PM CDT [facility] FIVC PRE 1.27(L) 2.36 - 3.74 L 06/06/2021 2:05 PM CDT [facility] FIF50% POST 2.26 L/s 06/06/2021 2:05 PM CDT [facility] FIF50% PRE 1.70 L/s 06/06/2021 2:05 PM CDT [facility] VCMAX N2 PRE 1.51(L) 2.36 - 3.74 L 06/06/2021 2:05 PM CDT [facility] TLC N2 PRE 2.96(L) 4.64 - 6.62 L 06/06/2021 2:05 PM CDT [facility] RV N2 PRE 1.45(L) 1.71 - 2.86 L 06/06/2021 2:05 PM CDT [facility] FRC N2 PRE 1.53 L 06/06/2021 2:05 PM CDT [facility] ERV N2 PRE 0.08(L) 0.66 - 0.66 L 06/06/2021 2:05 PM CDT [facility] IC N2 PRE 1.43(L) 2.39 - 2.39 L 06/06/2021 2:05 PM CDT [facility] DLCOc SB 9.82(L) 17.81 - 29.27 ml/(min*mm Hg) 06/06/2021 2:05 PM CDT [facility] DLCOc SB 9.82(L) 17.81 - 29.27 ml/(min*mm Hg) 06/06/2021 2:05 PM CDT [facility] VA 2.33(L) 5.48 - 5.48 L 06/06/2021 2:05 PM CDT [facility] DLCO/VA PRE 4.22 2.93 - 5.44 ml/(min*mm Hg*L) 06/06/2021 2:05 PM CDT [facility] DLCOc SB 4.22 2.93 - 5.44 ml/(min*mm Hg*L) 06/06/2021 2:05 PM CDT [facility] Anatomical Region Laterality Modality PFT 06/06/2021 1:12 [...] Correlate clinically. Ambulatory testing performed by another PULP BEATER. Results in Epic. Electronically signed by: Charli Musa [facility] Padmini Trinh MD PFT ORDERABLES Final Result documented in this encounter Visit Diagnoses Diagnosis Pulmonary nodule Other diseases of lung, not elsewhere classified Chronic obstructive pulmonary disease, unspecified COPD type (HCC) documented in this encounter Care Teams Global Compensation Manager Relationship Specialty Start Date End Date Gaudencio Miranda MD [address] [place] [address] PCP - General 07/25/16 Herberth Rodgers MD [address] [address] Surgeon Surgery 02/24/21 documented as of this encounter
--- OUTSIDE RECORDS SUMMARY | 2024-03-07 14:12 | XMS_ITS | Encounter Summary ---
Author Organization [facility] Address [address] [place] [address] Care Team Providers Care Lamp Shade Joiner Name Role Phone Gaudencio Miranda MD Primary Care Provider [phone] Herberth Rodgers MD Unavailable [phone] Reason for Referral * MRI/CAT/PET Scan (Routine) - Closed Specialty Diagnoses / Procedures Referred By Contac t Referred To Contact Radiology Diagnoses Lung mass Procedures CT Lung Needle Biopsy Right Padmini Trinh MD [address] [place] [address] Phone: tel: fax: [address] [phone] Referral ID Status Reason Start Date Expiration Date Visits Re quested Visits Authorized [id number] Closed 04/08/2021 05/08/2022 1 1 SPECIALIST Encounter Details Date Type Department Care Team (Late st Contact Info) Description 04/04/2021 Telephone [facility] Pulmonology [address] [facility] [address] [place] [address] Uma Gloria, CACHORRO Social History [...] on file Legal Sex Female 12:59 AM LAN SPECIALIST Gender Identity Not on file Sexual Orientation Not on file documented as of this encounter Miscellaneous Notes * Telephone Encounter - Uma Gloria RN - 04/25/2021 9:40 AM LAN SPECIALIST Bx has been rsd got 05/03. SPECIALIST * Addendum Note - Uma Gloria RN - 04/08/2021 10:50 AM CSTAddended by: UMA GLORIA on: 04/08/2021 10:50 AM Modules accepted: Orders SPECIALIST * Telephone Encounter - Uma Gloria RN - 04/08/2021 10:39 AM LAN SPECIALIST Pt being scheduled for 04/25 999. IR will reach out to pt to discuss appt details and instructions. SPECIALIST * Telephone Encounter - Uma Gloria RN - 04/04/2021 9:05 AM LAN SPECIALIST Sent message to IR to review imaging for possible lung bx. SPECIALIST documented in this encounter Plan of Treatment Not on file documented as of this encounter Results * CT Lung Needle Biopsy Right (05/03/2021 10:31 AM LAN SPECIALIST) Anatomical Region Laterality Modality Lung N/A Computed Tomogra phy, Computed Radiography 05/03/2021 10:4 0 AM LAN SPECIALIST Addenda Addendum by Autumn Whalen DO on 05/04/2021 10:45 AM LAN SPECIALIST ADDENDUM: This addendum report supersedes the original [...] D: ??05/04/2021 10:44 AM T: Report ID: [id number] Reading Location: ??[id number] Narrative 05/03/2021 10:50 AM LAN SPECIALIST EXAM DESCRIPTION: ?? CT NEEDLE BIOPSY LUNG [...] D: ??05/03/2021 10:50 AM T: Report ID: [id number] Reading Location: ??[id number] Procedure Note Autumn Whalen DO - 05/03/2021 EXAM DESCRIPTION: CT NEEDLE [...] 10:50 AM - Electronically signed by Autumn Whalen D.O. PS T: Report ID: [id number] Reading Location: [place] [address] Padmini Trinh MD IMG CT PROCEDURES Edited Resu lt - Final * (ABNORMAL) CBC with auto differential (05/03/2021 7:58 AM LAN SPECIALIST) WBC 12.2(H) 3.8 - 9.9 K/cumm [facility] Hgb 13.8 11.9 - 15.5 g/dL [facility] Hct 42.6 35.6 - 45.5 % [facility] Plt 181 150 - 400 K/cumm [facility] MPV 10.7 9.1 - 12.[address] [facility] RBC 4.40 3.90 - 5.20 M/cumm [facility] MCV 96.8(H) 81.3 - 96.[address] [facility] MCH 31.4 27.1 - 33.[address] [facility] MCHC 32.4 32.3 - 35.7 g/dL [facility] RDW CV 12.8 11.1 - 14.9 % [facility] RDW SD 46.3 35.7 - 48.[address] [facility] NRBC abs 0.00 0.00 - 0.01 K/cumm [facility] Blood 05/03/2021 7:58 AM LAN SPECIALIST 05/03/2021 8:01 AM LAN SPECIALIST Padmini Trinh MD LAB BLOOD ORDERABLES Final Re sult [address] [place] [address] * aPTT (05/03/2021 7:57 AM LAN SPECIALIST) aPTT 36 22 - 37 sec SIMON Comment: Interpretive data aPTT test has not been evaluated for monitoring heparin therapy. The anti-Xa is the preferred test. Current interpretive data was last revised on 2019. Blood 05/03/2021 7:57 AM LAN SPECIALIST 05/03/2021 8:01 AM LAN SPECIALIST Padmini Trinh MD LAB BLOOD ORDERABLES Final Re sult Performing Organization Address [facility] Co de Phone Number [address] [address] * Protime-INR (05/03/2021 7:57 AM LAN SPECIALIST) PT 13.9 12.0 - 14.[address] [facility] INR 1.1 0.9 - 1.2 SIMON Comment: Ref Range High Interpretive data Oral anticoagulant therapeutic ranges: Venous thromboembolism prophylaxis or treatment: 2.0-3.0 CARDIOLOGY Standard range: 2.0-3.0 High-intensity range: 2.5-3.5 Refer to indication-specific guidelines for appropriate target ranges for prosthetic heart valve replacement. Current interpretive data was last revised on 2019. Blood 05/03/2021 7:57 AM LAN SPECIALIST 05/03/2021 8:01 AM LAN SPECIALIST Padmini Trinh MD LAB BLOOD ORDERABLES Final Re sult Performing Organization Address [facility] Co de Phone Number [address] [address] documented in this encounter Visit Diagnoses Diagnosis Lung mass- Primary Swelling, mass, or lump in chest Shortness of breath Shortness of breath Lung mass Swelling, mass, or lump in chest Shortness of breath Shortness of breath documented in this encounter Care Teams Lamp Shade Joiner Relationship Specialty Start Date End Date Gaudencio Miranda MD [address] [place] [address] PCP - General 07/25/16 Herberth Rodgers MD [address] [address] [address] Surgeon Surgery 02/24/21 documented as of this encounter
--- OUTSIDE RECORDS SUMMARY | 2024-03-07 14:12 | XMS_ITS | Encounter Summary ---
Author Organization [facility] Address [address] [place] [address] Care Team Providers Care Nocturnist Physician Name Role Phone Gaudencio Miranda MD Primary Care Provider [phone] Herberth Rodgers MD Unavailable [phone] Reason for Visit * Reason Comments Follow-up PET CT Encounter Details Date Type Department Care Team (Late st Contact Info) Description 03/28/2021 2:30 PM DECORATING CONSULTANT Office Visit [facility] Pulmonology [address] [place] [address] Padmini Trinh MD [address] [facility] [address] [place] [address] Chronic obstructive pulmonary disease, unspecified COPD type (HCC) (Primary Dx); Heart failure with preserved left ventricular function (HFpEF) ([facility]/HCC) ([facility]); Non-seasonal allergic rhinitis due to other allergic trigger; Pulmonary nodule; Lung mass; Class 3 severe obesity due to excess calories with serious comorbidity and body mass index (BMI) of 45.0 to 49.9 in adult ([facility]); FELISHA (obstructive sleep apnea); Restrictive lung disease; Chronic respiratory failure with hypoxia and hypercapnia (CMS/HCC) ([facility]); Stage 5 chronic kidney disease not on chronic dialysis (CMS/HCC) ([facility]) Social History Tobacco Use Types Packs/Day Years [...] on file Legal Sex Female 12:59 AM DECORATING CONSULTANT Gender Identity Not on file Sexual Orientation Not on file documented as of this encounter Last Filed Vital Signs Vital Sign Reading Time Taken Comments Blood Pressure 126/62 03/28/2021 2:37 PM DECORATING CONSULTANT Pulse 64 03/28/2021 2:37 PM DECORATING CONSULTANT Temperature 36.6 ??C (97.8 ??F) 03/28/2021 2 :37 PM DECORATING CONSULTANT Respiratory Rate 20 03/28/2021 2:37 PM DECORATING CONSULTANT Oxygen Saturation 89% 03/28/2021 2:3 7 PM DECORATING CONSULTANT Pt oxygen left at home. Inhaled Oxygen Concentration - - Weight 137.5 kg (303 lb 3.2 oz) 03/28/2021 2:37 PM DECORATING CONSULTANT Height - - Body Mass Index 47.49 03/15/2021 9:19 AM DECORATING CONSULTANT documented in this encounter Ordered Prescriptions Prescription Sig Dispense Quantity Refills Last Filled Start Date End Date fluticasone-umecli din-vilanter (Trelegy Ellipta) 100-62.5-25 mcg inhalerIndications :Chronic obstructive pulmonary disease, unspecified COPD type (HCC) Inhale 1 puff daily 1 each 3 03/28/2021 05/28/2023 documented in this encounter Progress Notes * Padmini Trinh MD - 03/28/2021 2:30 PM CST Images from the original note were not included. PULMONARY CLINIC NOTE Visit Date: 03/28/2021 INTERVAL HISTORY: Presents today for follow-up of ??? COPD/emphysema ??? Pulmonary nodule ??? Chronic respiratory failure with hypoxia Dyspnea with exertion No dyspnea at rest Some wheezing. Minimal cough. Has oxygen 1 at rest, 2 with exertion but not using exertion O2 regularly. Not very mobile. Has yearly allergic rhinitis. Takes cherrie and phenylephrine nasal spray. HPI: Patient is a 70 y.o. female w/ PMH of CKD 5, h/o COPD, obesity his issues seen on hospital in [facility] 2020 for postop hypoxia. She initially presented for AV fistula creation for anticipated start of dialysis. Postoperatively was hypoxic. Evaluation showed some possible emphysema/pulmonary edema as well as lung nodules. She was discharged on oxygen. Social History: 100 pack year history, [...] for behavioral problems. OBJECTIVE: Physical Exam: Vitals: 03/28/21 1437 BP: 126/62 Pulse: 64 Resp: 20 Temp: 36.6 ??C (97.8 ??F) SpO2: (!) 89% Weight: (!) 137.5 kg (303 lb 3.2 oz) Physical Exam Constitutional: General: She is awake. [...] Mood normal. Behavior: Behavior normal. Data Review: 03/24/[address] IMPRESSION: 1. Masslike consolidation in the right lower lobe measuring 6.7 x 2.5 x 2.3 has an SUV of 2.5. The uptake is indeterminate although a mass of this size would likely have higher SUV values if malignant. This could represent scarring or round atelectasis. If a more aggressive workup is not pursued, [...] Diffuse uptake throughout the thyroid gland. Correlation with thyroid function tests recommended. 4. Heterogeneous uptake in the left hepatic lobe particularly near the liver is edge likely represent misregistration artifact and activity in the stomach. An MRI or multiphase CT of the liver could be obtained for confirmation. 02/07/21 Echo Conclusions: Normal left ventricular systolic function. No focal wall motion abnormalities. t Mild concentric left ventricular hypertrophy. Mild enlargement of left ventricle cavity. Impaired diastolic relaxationGrade I. Ejection fraction is measured at 60 %. The right ventricle is not well visualized. Possible mild enlargement of right ventricle. There is mild enlargement of left atrium. No significant valve disease. Normal sinus rhythm. Technically difficult study with limited vie ASSESSMENT AND PLAN 1. Pulmonary nodules and lung mass o Has a few pulmonary nodules most concerning lesion is right lower lobe. PET did not show any suspicious FDG avidity which would be expected in this nodule/mass given the size if it were malignant. May be just atelectasis/fibrosis? o I discussed extensively with patient and her daughter--that given PET findings and her high risk status for bronchoscopy given her multiple comorbidities/chronic multiorgan dysfunction and peripheral location of lesion-- monitoring with CT would be most reasonable option. Patient Very much wants b iopsy done if possible. Will discuss with Interventional Radiology if it is feasible to perform CT-guided biopsy of this lesion, we will send for biopsy. If they are unable to perform biopsy, will monitor with serial chest CT. Patient and daughter agreeable to plan. 2. COPD o Has radiographic emphysema o Continue Advair and p.r.n. albuterol o Scheduled for PFT in May o Consider pulmonary rehab referral in the future 3. Chronic respiratory failure hypoxia and hypercapnia o Due to COPD, pulmonary edema/ESRD, obesity hypoventilation, restrictive lung disease, etc o Continue 1 L oxygen with rest and 2 with exertion. Encourage compliance as she is not using exertional oxygen. o Repeat walk test 4. Seasonal allergic rhinitis o Continue Cherrie, phenylephrine nasal spray. Consider change to Flonase and singular in the future 5. Probable FELISHA o Consider referral to Sleep Clinic in the future 6. Probable restrictive lung disease and obesity hypoventilation o Obtain PFT. Needs weight loss and improving exercise 7. Obesity/deconditioning o Counseled/discussed on diet and exercise to improve cardiac and muscular conditioning and facilitate weight loss. o She is very deconditioned and does not exercise has very limited mobility, strongly encouraged her to improve conditioning and mobility. 8. H/o tobacco abuse o 100 pack year history, quit 2016. Continue abstinence 9. CKD and HFpEF o Follows with Nephrology. Continue Lasix. Keep euvolemic o Close to needing dialysis My total encounter time on 03/28/2021 was 45 minutes which was spent in the activities documented inthe note. This includes time spent prior to the visit, during the visit/iqdy-wv-dfdw time, and after the visit in direct care of the patient. This time does not include time spent in any separately reportable services. Padmini Trinh MD Pulmonary Medicine There may be syntax/grammatical errors in this note due to the use of voice recognition software. Addendum: Biopsy by IR is scheduled for 05/03 RATING CONSULTANT RATING CONSULTANT documented in this encounter Plan of Treatment Not on file documented as of this encounter Visit Diagnoses Diagnosis Chronic obstructive pulmonary disease, unspecified COPD type (HCC)- Primary Heart failure with preserved left ventricular function (HFpEF) ([facility]) ([facility]) Non-seasonal allergic rhinitis due to other allergic trigger Pulmonary nodule Other diseases of lung, not elsewhere classified Lung mass Swelling, mass, or lump in chest Class 3 severe obesity due to excess calories with serious comorbidity and body mass index (BMI) of 45.0 to 49.9 in adult ([facility]) FELISHA (obstructive sleep apnea) Obstructive sleep apnea (adult) (pediatric) Restrictive lung disease Other diseases of lung, not elsewhere classified Chronic respiratory failure with hypoxia and hypercapnia ([facility]) (HCC) Stage 5 chronic kidney disease not on chronic dialysis (CMS/[facility]) ([facility]) documented in this encounter Discontinued Medications Medication Sig Discontinue Reason Start Date End Da te fluticasone propion-salmeteroL (ADVAIR DISKUS) 250-50 mcg/dose diskus inhaler Inhale 1 puff 2 (two) times a day Rinse mouth with water after use. Do not swallow. Alternate therapy 02/27/2021 03/28/2021 documented as of this encounter Historical Medications * This list may reflect changes made after this encounter. Medication Sig Dispense Quantity Refills Last Filled Start D ate End Date spironolactone (ALDACTONE) 50 mg tablet 03/22/2021 added in this encounter Care Teams Nocturnist Physician Relationship Specialty Start Date End Date Gaudencio Miranda MD [address] [place] [address] PCP - General 07/25/16 Herberth Rodgers MD [address] [place] [address] Surgeon Surgery 02/24/21 documented as of this encounter
--- OUTSIDE RECORDS SUMMARY | 2024-03-07 14:12 | XMS_ITS | Encounter Summary ---
Author Organization [facility] Healthcare Address [address] [place] [address] Care Team Providers Care Barrel And Receiver Aligner Name Role Phone Gaudencio Miranda MD Primary Care Provider [phone] Herberth Rodgers MD Unavailable [phone] Encounter Details Date Type Department Care Team (Latest Contact Info) Description 05/03/2021 11:52 AM DIRECTOR CLINICAL DATA - 05/03/2021 11:59 PM DIRECTOR CLINICAL DATA Hospital Encounter [facility] ED Diagnostic Imaging [address] [place] [address] Discharge Disposition: Discharge to home or self [...] on file Legal Sex Female 12:59 AM DIRECTOR CLINICAL DATA Gender Identity Not on file Sexual Orientation [...] s:Chronic obstructive pulmonary disease, unspecified COPD type ([facility]) Inhale 1 puff daily 1 each 3 03/28/2021 05/28/2023 documented as of this encounter Discharge Disposition Disposition Code Departure Means Destination Discharge to home or self care documented in this encounter Plan of Treatment Not on file documented as of this encounter Procedures Procedure Name Priority Date/Time Associated Diagnosis Comments XR CHEST 1 VIEW IP Routine 05/03/2021 12:12 PM DIRECTOR CLINICAL DATA documented in this encounter Results * XR Chest 1 View (Portable) (05/03/2021 12:12 PM DIRECTOR CLINICAL DATA) Anatomical Region Laterality Modality Body, Chest N/A Computed Radiogr aphy 05/03/2021 12:1 9 PM DIRECTOR CLINICAL DATA Narrative 05/03/2021 12:21 PM DIRECTOR CLINICAL DATA EXAM DESCRIPTION: ?? XR CHEST 1 VIEW [...] D: ??05/03/2021 12:21 PM T: Report ID: [id number] Reading Location: [id number] Procedure Note Autumn Whalen, DO - 05/03/2021 [...] 12:21 PM - Electronically signed by Autumn Whalen D.O. PS T: Report ID: [id number] Reading Location: [place] [address] [place] Autumn Whalen DO IMG XR PROCEDURES Final R esult documented in this encounter Visit Diagnoses Not on filedocumented in this encounter Care Teams Barrel And Receiver Aligner Relationship Specialty Start Date End Date Gaudencio Miranda MD [address] [place] [id number] PCP - General 07/25/16 Herberth Rodgers MD [address] [facility] [address] [address] Surgeon Surgery 02/24/21 documented as of this encounter
--- OUTSIDE RECORDS SUMMARY | 2024-03-07 14:12 | XMS_ITS | Encounter Summary ---
Author Organization [facility] Healthcare Address [address] [place] [address] Care Team Providers Care Drop Hammer Pile Driver Operator Name Role Phone Gaudencio Miranda MD Primary Care Provider [phone] Herberth Rodgers MD Unavailable [phone] Reason for Referral * Procedure (Routine) - Closed Specialty Diagnoses / Procedures Referred By Mallory t Referred To Contact Diagnoses Chronic obstructive pulmonary disease, unspecified COPD type (HCC) Procedures Pulmonary Function Test -[facility]; Full PFT in PFT Lab w/Stress Ox/6 Min Walk Test [facility] [address] [place] [address] Phone: tel: fax: Referral ID Status Reason Start Date Expiration Date Visits Re quested Visits Authorized [id number] Closed 12/12/2021 01/11/2023 1 1 Reason for Visit * Procedure (Routine) - Closed Specialty Diagnoses / Procedures Referred By Contac t Referred To Contact Diagnoses Chronic obstructive pulmonary disease, unspecified COPD type (HCC) Procedures Pulmonary Function Test -[facility]; Full PFT in PFT Lab w/Stress Ox/6 Min Walk Test Padmini Trinh MD [address] [place] [address] Phone: tel: fax: Referral ID Status Reason Start Date Expiration Date Visits Re quested Visits Authorized [id number] Closed 12/12/2021 01/11/2023 1 1 Encounter Details Date Type Department Care Team (Latest Contact Info) Description 06/22/2022 1:54 PM CDT - 06/22/2022 11:59 PM CDT Hospital Encounter [facility] Respiratory Therapy [address] [place] [id number] Chronic obstructive pulmonary disease, unspecified COPD type [...] on file 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 65 bpm Resting SPO2 92 % Oxygen Setting 21% Ambulation Trials to Assess Desaturation to 88% Activity 1: Ambulated (feet) 3 feet Oxygen Setting #1 0 SPO2 (%) #1 84 % (PT PLACED ON O2 AT 1LPM) Activity 2: Ambulated (feet) 2 feet (PT UNABLE TO AMBULATE, PLACED IN WHEELCHAIR) Oxygen Setting #2 1 SPO2 (%) #2 92 % Post Ambulation Assessment HR Post Assessment 86 bpm RR Post Assessment 20 breaths/m Post Assessment Recommendation O2 RECOMMENDED AT 1LPM WITH ACTIVITY $ Home O2 Assessment Yes DX=COPD RESULTS CALLED TO LAZARO AT DR TRINH'S OFFICE Pamela Pitts CRTT documented in this encounter Plan of Treatment Not on file documented as of this encounter Procedures Procedure Name Priority Date/Time Associated Diagnosis Comments PULMONARY FUNCTION TEST (PFT) Routine 06/22/2022 3:05 PM CDT Chronic obstructive pulmonary disease, unspecified COPD type (HCC) documented in this encounter Results * (ABNORMAL) Pulmonary Function Test - (06/22/2022 3:05 PM CDT) FVC POST 2.11(L) 2.26 - 4.06 L 06/22/2022 2:57 PM CDT [facility] FVC PRE 2.00(L) 2.26 - 4.06 L 06/22/2022 2:57 PM CDT [facility] FEV1 POST 1.57(L) 1.72 - 3.04 L 06/22/2022 2:57 PM CDT [facility] FEV1 PRE 1.52(L) 1.72 - 3.04 L 06/22/2022 2:57 PM CDT [facility] [id number] 74.46 63.52 - 89.00 % 06/22/2022 2:57 PM CDT [facility] [id number] 76.23 63.52 - 89.00 % 06/22/2022 2:57 PM CDT [facility] UJB28-23% POST 1.17 0.85 - 3.43 L/s 06/22/2022 2:57 PM CDT [facility] LYP07-00% PRE 0.86 0.85 - 3.43 L/s 06/22/2022 2:57 PM CDT [facility] PEF POST 5.17 4.72 - 7.68 L/s 06/22/2022 2:57 PM CDT [facility] PEF PRE 4.96 4.72 - 7.68 L/s 06/22/2022 2:57 PM CDT [facility] FET 100% POST 6.19 sec 06/22/2022 2:57 PM CDT [facility] FET 100% PRE 6.91 sec 06/22/2022 2:57 PM CDT [facility] FIVC POST 1.83(L) 2.33 - 3.71 L 06/22/2022 2:57 PM CDT [facility] FIVC PRE 1.77(L) 2.33 - 3.71 L 06/22/2022 2:57 PM CDT [facility] FIF50% POST 2.21 L/s 06/22/2022 2:57 PM CDT [facility] FIF50% PRE 2.50 L/s 06/22/2022 2:57 PM CDT [facility] DLCOc SB 12.12(L) 17.59 - 29.06 ml/(min*mm Hg) 06/22/2022 2:57 PM CDT [facility] VA 3.09(L) 5.46 - 5.46 L 06/22/2022 2:57 PM CDT [facility] DLCO/VA PRE 3.93 2.90 - 5.42 ml/(min*mm Hg*L) 06/22/2022 2:57 PM CDT [facility] IC SB 1.53(L) 2.37 - 2.37 L 06/22/2022 2:57 PM CDT [facility] VC PRE 1.78(L) 2.33 - 3.71 L 06/22/2022 2:57 PM CDT [facility] TLC PRE 4.24(L) 4.62 - 6.60 L 06/22/2022 2:57 PM CDT [facility] RV PRE 2.47 1.72 - 2.87 L 06/22/2022 2:57 PM CDT [facility] FRC PL PRE 2.71 2.12 - 3.76 L 06/22/2022 2:57 PM T [facility] ERV PRE 0.24(L) 0.65 - 0.65 L 06/22/2022 2:57 PM CDT [facility] IC PRE 1.53(L) 2.37 - 2.37 L 06/22/2022 2:57 PM T [facility] RAW PRE 6.75(H) 3.06 - 3.06 cmH2O*s/L 06/22/2022 2:57 PM CDT [facility] BF RES 18.39 BPM 06/22/2022 2:57 PM T [facility] Anatomical Region Laterality Modality PFT 06/22/2022 2:04 [...] oxygen with exertion. Electronically signed by Padmini Trinh MD Padmini Trinh MD PFT ORDERABLES Final Result documented in this encounter Visit Diagnoses Diagnosis Chronic obstructive pulmonary disease, unspecified COPD type (HCC) documented in this encounter Administered Medications Inactive Administered Medications - up to 3 most recent administrations Medication Order MAR Action Action Date Dose Rate Site albuterol HFA (PROVENTIL HFA,VENTOLIN HFA,PROAIR HFA) 90 mcg/actuation inhaler 2 puff 2 puff, inhalation, Once (newspaper correspondent), On Bernarda 06/22/22 at 1415, For 1 dose Given 06/22/2022 2:15 PM CDT 2 puffs documented in this encounter Orders Medications Ordered That Regan ht Not Have Been Administered Count Last Ordered Date First Ordered Date albuterol HFA (PROVENTIL HFA ,VENTOLIN HFA,PROAIR HFA) 90 mcg/actuation inhaler 2 puff 1 06/22/2022 documented in this encounter Care Teams Drop Hammer Pile Driver Operator Relationship Specialty Start Date End Date Gaudencio Miranda MD [address] [place] [address] PCP - General 07/25/16 Herberth Rodgers MD [address] [place] [address] Surgeon Surgery 02/24/21 documented as of this encounter
--- OUTSIDE RECORDS SUMMARY | 2024-03-07 14:12 | XMS_ITS | Encounter Summary ---
Author Organization [facility] Address 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 documented in this encounter Plan of Treatment Not on file documented as of this encounter Visit Diagnoses Diagnosis Chronic obstructive pulmonary disease, unspecified COPD type (HCC)- Primary documented in this encounter Care Teams Beveller Operator Relationship Specialty Start Date End Date Gaudencio Miranda MD [address] [place] [address] PCP - General 07/25/16 Herberth Rodgers MD [address] [facility] [address] [address] Surgeon Surgery 02/24/21 documented as of this encounter
--- OUTSIDE RECORDS SUMMARY | 2024-03-07 14:13 | XMS_ITS | Encounter Summary ---
Author Organization [facility] Address [address] [place] [address] Care Team Providers Care Web Interface Developer Name Role Phone Gaudencio Miranda MD Primary Care Provider [phone] Herberth Rodgers MD Unavailable [phone] Encounter Details Date Type Department Care Team (Late st Contact Info) Description 02/24/[address] 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
--- OUTSIDE RECORDS SUMMARY | 2024-03-07 14:13 | XMS_ITS | Encounter Summary ---
Author Organization [facility] Address [address] [place] [address] Care Team Providers Care Linen Room Custodian Name Role Phone Gaudencio Miranda MD Primary Care Provider [phone] Reason for Referral * Consultation (Routine) - Closed Specialty Diagnoses / Procedures Referred By Contac t Referred To Contact Cardiology Diagnoses Chest discomfort Pre-operative clearance Herberth Rodgers MD [address] [place] [address] Phone: tel: fax: Stacy Peña MD [address] [address] Phone: tel: fax: Referral ID Status Reason Start Date Expiration Date V isits Requested Visits Authorized [id number] Closed Specialty Services Required 12/31/2020 01/30/2022 1 1 Question Answer Please select the performing region: External Order [[id number]] To provider: STACY PEÑA [[id number]] # of visits: [address] Herberth Rodgers on 12/30 cancelled due to pt reporting left side chest discomfort. Needs Cardiac Clearance. Pt needs to be set up to be seen with Dr. Peña NICHO. Preferably before the end of the month due to pt needing to have surgery done. Encounter Details Date Type Department Care Team (Late st Contact Info) Description 12/31/2020 Orders Only [facility] Vascular and Vein Surgery [address] [facility] [address] [place] [phone] Eduarda Ocasio, RN Pre-operative clearance (Primary Dx); Chest discomfort Social History Tobacco Use Types Packs/Day Years Used Date Smoking Tobacco: Former Cigarettes Q uit: 2016 AUDIT-C Answer Date Recorded Q1: How often do you have a drink containing alc ohol? Never 12/30/2020 Average Number of Drinks Not on file Q3: How often do you have si x or more drinks on one occasion? 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 Gender Identity Not on file Sexual Orientation Not on file documented as of this encounter Plan of Treatment Scheduled Referrals Name Type Priority Associated Diagnoses Order Schedule Ambulatory referral to Cardiology Outpatient Referral Routine Chest discomfort Pre-operative clearance Expected: 12/31/2020 (Approximate), Expires: 12/31/2021 documented as of this encounter Visit Diagnoses Diagnosis Pre-operative clearance- Primary Unspecified pre-operative examination Chest discomfort Other chest pain documented in this encounter Care Teams Linen Room Custodian Relationship Specialty Start Date End Date Gaudencio Miranda MD [address] [place] [id number] PCP - General 07/25/16 documented as of this encounter
--- OUTSIDE RECORDS SUMMARY | 2024-03-07 14:13 | XMS_ITS | Encounter Summary ---
Author Organization [facility] Healthcare Address [address] [place] [address] Care Team Providers Care Electronics Utility Worker Name Role Phone Gaudencio Miranda MD Primary Care Provider [phone] Encounter Details Date Type Department Care Team (Latest Contact Info) Description 07/25/2016 12:09 PM CDT - 07/25/2016 11:59 PM T Hospital Encounter [facility] OP INTERIM [phone] Grace Murillo MD [phone] [place] [address] Discharge Disposition: Discharge to home or self care Social History Tobacco Use Types Packs/Day Years Used Date Smoking Tobacco: Former Comments Unknown Sex and Gender Information Value Date Recorded Sex Assigned at Not on file 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 Gender Identity Not on file Sexual Orientation Not on file documented as of this encounter Medications at Time of Discharge topiramate (TOPAMAX) 50 mg tablet Take 2 tabs bid 06/28/2016 01/17/2021 documented as of this encounter Discharge Disposition Disposition Code Departure Means Destination Discharge to home or self care documented in this encounter Plan of Treatment Not on file documented as of this encounter Visit Diagnoses Not on filedocumented in this encounter Care Teams Electronics Utility Worker Relationship Specialty Start Date End Date Gaudencio Miranda MD [address] [place], [place] [address], [place] [address] PCP - General 07/25/16 documented as of this encounter
--- OUTSIDE RECORDS SUMMARY | 2024-03-07 14:13 | XMS_ITS | Encounter Summary ---
Author Organization [facility] Address [address] [place] [address] Care Team Providers Care Performance Improvement Analyst Name Role Phone Gaudencio Miranda MD Primary Care Provider [phone] Encounter Details Date Type Department Care Team (Late st Contact Info) Description 12/27/2020 Orders Only [facility] Testing Site - [place], [place] [address] [place] [phone] Herberth Rodgers MD [address] [facility] [address] [address] Pre-op testing (Primary Dx) Social History Tobacco Use Types Packs/Day Years Used Date Smoking Tobacco: Former Cigarettes Q uit: 2016 AUDIT-C Answer Date Recorded Q1: How often do you have a drink containing alc ohol? Never 12/27/2020 Average Number of Drinks Not on file 021 Q3: How often do you have si x or more drinks on one occasion? 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 ??Testing performed by the [facility] Molecular Infectious Disease Laboratory. [...] on April 22, 2020. First COVID-19 test? Unknown [facility] Employeed in healthcare? Unknown [facility] status? No [facility] Group care resident? Unknown [facility] Hospitalized? No [facility] Is patient in ICU? No [facility] Symptomatic as defined by CDC? No [facility] Nasopharyngeal 12/27/2020 8: 15 PM CDT 12/27/2020 8:55 PM CDT Narrative [facility] - 12/28/2020 8:51 AM CDT What is the reason for testing?->Screening prior to scheduled procedure or surgery (batch) Herberth Rodgers MD LAB MICROBIOLOGY - GENERAL ORDERABLES Final Result [facility] Department [place] [address] documented in this encounter Visit Diagnoses Diagnosis Pre-op testing- Primary Unspecified pre-operative examination Pre-op testing Unspecified pre-operative examination documented in this encounter Care Teams Performance Improvement Analyst Relationship Specialty Start Date End Date Gaudencio Miranda MD [address] [place] [address] PCP - General 07/25/16 documented as of this encounter
--- OUTSIDE RECORDS SUMMARY | 2024-03-07 14:13 | XMS_ITS | Encounter Summary ---
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 ??Testing performed by the [facility] Molecular Infectious Disease Laboratory. The 2019-Novel [...] April 22, 2020. First COVID-19 test? Unknown [facility] Employeed in healthcare? Unknown [facility] status? No [facility] Group care resident? Unknown [facility] Hospitalized? No [facility] Is patient in ICU? No [facility] Symptomatic as defined by CDC? No [facility] Nasopharyngeal 12/27/2020 8: 15 PM CDT 12/27/2020 8:55 PM CDT Narrative [facility] - 12/28/2020 8:51 AM CDT What is the reason for testing?->Screening prior to scheduled procedure or surgery (batch) Herberth Rodgers MD LAB MICROBIOLOGY - GENERAL ORDERABLES Final Result [facility] Department [place] [address] documented in this encounter Visit Diagnoses Diagnosis Pre-op testing Unspecified pre-operative examination documented in this encounter Care Teams Stringer Machine Tender Relationship Specialty Start Date End Date Gaudencio Miranda MD [address] [place] [address] PCP - General 07/25/16 documented as of this encounter
--- OUTSIDE RECORDS SUMMARY | 2024-03-07 14:13 | XMS_ITS | Encounter Summary ---
Author Organization [facility] Healthcare Address [address] [place] [address] Care Team Providers Care Icing Mixer Name Role Phone Gaudencio Miranda MD Primary Care Provider [phone] Reason for Referral * Diagnostic Imaging (Routine) - Closed Specialty Diagnoses / Procedures Referred By Mallory valentino Referred To Contact Diagnoses End stage renal disease (CMS/HCC) (HCC) Other specified pre-operative examination Procedures US Vein Mapping Duplex Upper Extremity Bilateral Herberth Rodgers MD [address] [place] [address] [address] [address] Phone: tel: fax: [facility] [address] [place] [phone] Referral ID Status Reason Start Date Expiration Date Visits Re quested Visits Authorized [id number] Closed 11/24/2020 12/24/2021 1 1 Reason for Visit * Diagnostic Imaging (Routine) - Closed Specialty Diagnoses / Procedures Referred By Mallory valentino Referred To Contact Diagnoses End stage renal disease (CMS/HCC) (HCC) Other specified pre-operative examination Procedures US Vein Mapping Duplex Upper Extremity Bilateral Herberth Rodgers MD [facility] [address] [address] Phone: tel: fax: [facility] [address] [place] [phone] Referral ID Status Reason Start Date Expiration Date Visits Re quested Visits Authorized [id number] Closed 11/24/2020 12/24/2021 1 1 Encounter Details Date Type Department Care Team (Latest Contact Info) Description 12/15/2020 2:25 PM CDT - 12/15/2020 11:59 PM CDT Hospital Encounter [facility] [address] [place] [id number] End stage renal disease (CMS/HCC) (HCC); Other specified pre-operative examination Discharge Disposition: Discharge to home or self care Social History Tobacco Use Types Packs/Day Years Used Date Smoking Tobacco: Former Comments Unknown Sex and Gender Information Value Date Recorded Sex Assigned at Not on file 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 Gender Identity Not on file Sexual Orientation [...] (60 mg total) by mouth nightly 11/11/2020 HYDROcodone-acet aminophen (NORCO) 5-325 mg per tablet Take 1 tablet by mouth every 6 hours propranoloL (INDERAL) 60 mg tablet Take 1 tablet (60 mg total) by mouth 2 times daily rosuvastatin (CRESTOR) 10 mg tablet Take 2 tablets (20 mg total) by mouth daily levothyroxine (SYNTHROID) 200 mcg tablet Take 1 tablet (200 mcg total) by mouth daily 05/28/2023 alendronate (FOSAMAX) 70 mg tablet TAKE 1 TABLET BY MOUTH 1 TIME A WEEK 30 MINUTES BEFORE FIRST FOOD OR BEVERAGE OR MEDICINE OF THE DAY WITH WATER 09/28/2020 01/17/2021 furosemide (LASIX) 40 mg tablet Take 40 mg by mouth nightly 02/27/2021 pregabalin (Lyrica) 100 mg capsule Take 200 mg by mouth 2 (two) times a day 02/22/2021 sertraline (ZOLOFT) 100 mg tablet daily 01/17/2021 spironolactone (ALDACTONE) 50 mg tablet Take 50 mg by mouth daily 02/27/2021 topiramate (TOPAMAX) 50 mg tablet Take 2 tabs bid 06/28/2016 01/17/2021 documented as of this encounter Discharge Disposition Disposition Code Departure Means Destination Discharge to home or self care documented in this encounter Plan of Treatment Not on file documented as of this encounter Procedures Procedure Name Priority Date/Time Associated Diagnosis Comments US VEIN MAPPING DUPLEX UPPER EXTREMITY BILATERAL Routine 12/15/2020 3:30 PM CDT End stage renal disease (CMS/HCC) ([facility]) Other specified pre-operative examination documented in this encounter Results * US Vein Mapping Duplex Upper Extremity Bilateral (12/15/2020 3:30 PM CDT) Anatomical Region Laterality Modality Vascular Bilateral Ultrasound 12/15/2020 Narrative 12/16/2020 1:59 PM CDT [facility] Job ID: [id number] [facility] Document ID: [id number] Dictated date/time: [id number] UPPER EXTREMITY VEIN MAPPING REASON FOR EXAM Preop dialysis. COMMENTS ON THE RIGHT Deep veins show normal flow and compressibility. ??Cephalic measures 4.2, 4.6, 4.4. ??Basilic 3.8, 3.4, 2.6. ??Axillary 7.4 and patent. COMMENTS ON THE LEFT Deep veins show flow and compressibility. ??Cephalic measures 4.4. ??4.0, 4.8, 3.1. ??Basilic 4.2, 4.6, 4.0. ??Axillary 5.4 mm. OVERALL IMPRESSION Negative for deep vein thrombosis bilateral lower extremities. ??Bilateral cephalic veins appear sizable and suitable for autogenous arteriovenous fistula creation. JOB ID/VF JOB ID: ??[id number] us Herberth Rodgers MD IMG US PROCEDURES Final Re sult documented in this encounter Visit Diagnoses Diagnosis End stage renal disease (CMS/HCC) (HCC) End stage renal disease Other specified pre-operative examination documented in this encounter Care Teams Icing Mixer Relationship Specialty Start Date End Date Gaudencio Miranda MD [address] [place] [address] PCP - General 07/25/16 documented as of this encounter
--- OUTSIDE RECORDS SUMMARY | 2024-03-07 14:13 | XMS_ITS | Encounter Summary ---
Author Organization [facility] Address [address] [place] [address] Care Team Providers Care Procedure Rn Name Role Phone Gaudencio Miranda MD Primary Care Provider [phone] Reason for Visit * Cardiology (Routine) - Closed Specialty Diagnoses / Procedures Referred By Mallory valentino Referred To Contact Diagnoses Other chest pain PIERRE (dyspnea on exertion) Preop cardiovascular exam Procedures Transthoracic Echo Complete W Doppler/CF Stacy Peña [place] [address] [place] [address] Phone: tel: fax: [facility] Referral ID Status Reason Start Date Expiration Date Visits Re quested Visits Authorized [id number] Closed 01/17/2021 02/16/2022 1 1 Encounter Details Date Type Department Care Team (Latest Contact Info) Description 02/07/2021 2:00 PM RN CARDIOVASCULAR ICU Ancillary Procedure [facility] Cardiology [address] [place] [address] Other chest pain; PIERRE (dyspnea on exertion); Preop cardiovascular exam Social History Tobacco Use Types Packs/Day [...] on file Legal Sex Female 12:59 AM RN CARDIOVASCULAR ICU Gender Identity Not on file Sexual Orientation Not on file documented as of this encounter Plan of Treatment Not on file documented as of this encounter Procedures Procedure Name Priority Date/Time Associated Diagnosis Comments TRANSTHORACIC ECHO (TTE) COMPLETE W DOPPLER/CF W CONTRAST Routine 02/07/2021 2:57 PM RN CARDIOVASCULAR ICU Other chest pain PIERRE (dyspnea on exertion) Preop cardiovascular exam documented in this encounter Results * TRANSTHORACIC ECHO (TTE) COMPLETE W DOPPLER/CF W CONTRAST (02/07/2021 2:57 PM RN CARDIOVASCULAR ICU) Anatomical Region Laterality Modality Ultrasound 02/07/2021 1:35 PM RN CARDIOVASCULAR ICU Narrative 02/07/2021 7:19 PM RN CARDIOVASCULAR ICU [facility] Cardiology [address] [facility] [address] [id number] [address] [facility] [address] P:[phone] P:[phone] Echocardiographic Report Patient Name: PEG SON : 1950 Study Date: 02/07/2021 1:35:00 PM Gender: F Tech: Location: [place] Ref.Provider: STACY PEÑA Height(Cm): 173 BSA: 2.43 Weight(Kg): 136.08 Heart Rate: 59 BP: 149/63 Quality: Definity contrast agent used to enhance endocardial border definition Order Provider: STACY PEÑA Procedures: Echocardiographic Report: Transthoracic echocardiogram with complete 2D, M-Mode, color Doppler examination and Definity contrast. Indications: Chest Pain, Preoperative, and Dyspnea on Exertion. Measurements: 2D/M Mode ?Doppler ? Measurement ?Value ?Normal Range ? Measurement ?Value ?Normal Range ? EF Mod ? 60 ?AV Mean PG ? 7 ?mmHg ? EF MM ?64 ? [ 55 - 70 ] % ?AV Peak Armando ?1.78 ? m/s ? LVIDd MM ? 5.67 ? [ 3.90 - 5.30 ] cm ? AV Peak PG ? 13 ? mmHg ? LVIDs MM ? 3.67 ? [ 2.30 - 3.90 ] cm ? AV VTI ? 0.42 ? cm ? LVPWd MM ? 1.17 ? [ 0.60 - 1.00 ] cm ? LVOT Peak Armando ?1.14 ? [ 0.70 - 1.10 ] m/s ? IVSd MM ?1.17 ? [ 0.60 - 0.90 ] cm ? LVOT VTI ? 0.27 ? cm ? LA Dimension MM ?4.58 ? [ 2.70 - 3.80 ] cm ? MV E Peak Armando ?0.67 ? [ 0.60 - 1.30 ] m/s ? AoR Diam MM ?2.92 ? [ 2.60 - 3.70 ] cm ? MV A Peak Armando ?0.91 ? [ 0.40 - 0.80 ] m/s ? LA Volume Index ?29.00 ?[ 16.00 - 28.00 ] cc/m2 ?MV Decel Time ?267 ?[ 150 - 200 ] msec ? ACS MM ? 1.83 ? cm ? PV Peak Armando ?1.34 ? [ 0.40 - 0.80 ] m/s ? E' ? 0.07 ? E/E' ? 10 ? Findings: Interpretation Site: Exam was interpreted at [facility]. Left Ventricle: Normal left ventricular systolic function. No focal wall motion abnormalities. Definity contrast agent used to visually enhance endocardial wall motion and contractility. Lot Number: [id number]. Mild concentric left ventricular hypertrophy. Mild enlargement of left ventricle cavity. Impaired diastolic relaxation Grade I. Ejection fraction is measured at 60 %. Right Ventricle: The right ventricle is not well visualized. Possible mild enlargement of right ventricle. Left Atrium: There is mild enlargement of left atrium. Right Atrium: The right atrium is normal in size. Atrial Septum: Normal atrial septum. Mitral Valve: Normal appearance of the mitral valve. Aortic Valve: Normal appearance of the aortic valve. Tricuspid Valve: Normal appearance of the tricuspid valve. Right ventricular systolic pressure could not be estimated due to inadequate visualization of the tricuspid regurgitation jet. Pulmonic Valve: Trivial regurgitation in the pulmonic valve. Pericardium: Normal pericardium with no significant pericardial effusion. Aorta: Aortic root not well visualized. Sinus of Valsalva is normal. Sinotubular junction is normal. IVC: Normal size and normal respiratory collapse consistent with normal right atrial pressure (<5 mmHg). Pulmonary Artery: Normal pulmonary artery size. Conclusions: Normal left ventricular systolic function. No focal wall motion abnormalities. t Mild concentric left ventricular hypertrophy. Mild enlargement of left ventricle cavity. Impaired diastolic relaxation Grade I. Ejection fraction is measured at 60 %. The right ventricle is not well visualized. Possible mild enlargement of right ventricle. There is mild enlargement of left atrium. No significant valve disease. Normal sinus rhythm. Technically difficult study with limited views. Definity contrast agent used. Electronically Signed By: Geena Tran MD, [facility] 2021-02-07 19:19:45 RN CARDIOVASCULAR ICU Procedure Note Geena Tran MD - 02/07/2021 [facility] Cardiology [address] [facility] [address], [place] [address] [address] [facility] [address], [place] [address] P:[phone] P:[phone] Echocardiographic Report Patient Name: PEG SONPatient ID: [id number] : [id number] Date: 02/07/2021 1:35:00 PM Gender: FAccession #: [id number] Tech: GMLocation: [place] Ref.Provider: JAH PEÑARHeight(Cm): 173 BSA: 2.43Weight(Kg): 136.08 Heart Rate: 59BP: 149/63 Quality: Definity contrast agent used to enhance endocardial borderdefinitionOrder Provider: STACY PEÑA Procedures: Echocardiographic Report: Transthoracic echocardiogram with complete 2D, M-Mode, color Dopplerexamination and Definity contrast. Indications: Chest Pain, Preoperative, and Dyspnea on Exertion. Measurements: 2D/M Mode Doppler Measurement Value Normal Range MeasurementValue Normal Range EF Mod 60 AV Mean PG 7mmHg EF MM 64 [ 55 - 70 ] % AV Peak Vel1.78 m/s LVIDd MM 5.67 [ 3.90 - 5.30 ] cm AV Peak PG 13mmHg LVIDs MM 3.67 [ 2.30 - 3.90 ] cm AV VTI0.42 cm LVPWd MM 1.17 [ 0.60 - 1.00 ] cm LVOT Peak Vel1.14 [ 0.70 - 1.10 ] m/s IVSd MM 1.17 [ 0.60 - 0.90 ] cm LVOT VTI0.27 cm LA Dimension MM 4.58 [ 2.70 - 3.80 ] cm MV E Peak Vel0.67 [ 0.60 - 1.30 ] m/s AoR Diam MM 2.92 [ 2.60 - 3.70 ] cm MV A Peak Vel0.91 [ 0.40 - 0.80 ] m/s LA Volume Index 29.00 [ 16.00 - 28.00 ] cc/m2 MV Decel [id number] [ 150 - 200 ] msec ACS MM 1.83 cm PV Peak Vel1.34 [ 0.40 - 0.80 ] m/s E'0.07 E/E' 10 Findings: Interpretation Site: Exam was interpreted at [facility]. Left Ventricle: Normal left ventricular systolic function. No focal wall motionabnormalities. Definity contrast agent used to visually enhance endocardial wall motion andcontractility. Lot Number: [id number]. Mild concentric left ventricular hypertrophy. Mildenlargement of left ventricle cavity. Impaired diastolic relaxation Grade I. Ejection fractionis measured at 60 %. Right Ventricle: The right ventricle is not well visualized. Possible mild enlargement ofright ventricle. Left Atrium: There is mild enlargement of left atrium. Right Atrium: The right atrium is normal in size. Atrial Septum: Normal atrial septum. Mitral Valve: Normal appearance of the mitral valve. Aortic Valve: Normal appearance of the aortic valve. Tricuspid Valve: Normal appearance of the tricuspid valve. Right ventricular systolicpressure could not be estimated due to inadequate visualization of the tricuspidregurgitation jet. Pulmonic Valve: Trivial regurgitation in the pulmonic valve. Pericardium: Normal pericardium with no significant pericardial effusion. Aorta: Aortic root not well visualized. Sinus of Valsalva is normal. Sinotubularjunction is normal. IVC: Normal size and normal respiratory collapse consistent with normal rightatrial pressure (<5 mmHg). Pulmonary Artery: Normal pulmonary artery size. Conclusions: Normal left ventricular systolic function. No focal wall motionabnormalities. t Mild concentric left ventricular hypertrophy. Mild enlargement of leftventricle cavity. Impaired diastolic relaxation Grade I. Ejection fraction is measured at 60%. The right ventricle is not well visualized. Possible mild enlargement ofright ventricle. There is mild enlargement of left atrium. No significant valve disease. Normal sinus rhythm. Technically difficult study with limited views. Definity contrast agentused. Electronically Signed By: Geena Tran MD, [facility] 2021-02-07 19:19:45 RN CARDIOVASCULAR ICU Stacy Peña MD CV ECHO PROCEDURES F inal Result documented in this encounter Visit Diagnoses Diagnosis Other chest pain PIERRE (dyspnea on exertion) Other dyspnea and respiratory abnormality Preop cardiovascular exam Pre-operative cardiovascular examination documented in this encounter Administered Medications Inactive Administered Medications - up to 3 most recent administrations Medication Order MAR Action Action Date Dose Rate Site perflutren lipid (DEFINITY) 1.5 mL in sodium chloride 0.9% 10 mL syringe 1-10 mL, intravenous, Once in imaging, contrast, Starting on 02/07/21 at 1439, For 1 dose Contrast Given 02/07/2021 2:49 PM RN CARDIOVASCULAR ICU 1 mL documented in this encounter Orders Medications Ordered That Regan ht Not Have Been Administered Count Last Ordered Date First Ordered Date perflutren lipid (DEFINITY) 1.5 mL in sodium chloride 0.9% 10 mL syringe 1 02/07/2021 documented in this encounter Care Teams Procedure Rn Relationship Specialty Start Date End Date Gaudencio Miranda MD [address] [place] [address] PCP - General 07/25/16 documented as of this encounter
--- OUTSIDE RECORDS SUMMARY | 2024-03-07 14:13 | XMS_ITS | Encounter Summary ---
Author Organization [facility] Healthcare Address [address] [place] [address] Care Team Providers Care Dispatcher Clerk Name Role Phone Gaudencio Miranda MD Primary Care Provider [phone] Reason for Visit * Auth/Cert Specialty Diagnoses / Procedures Referred By Mallory valentino Referred To Contact Diagnoses End stage renal disease (CMS/HCC) (HCC) End stage renal disease (CMS/HCC) (HCC) [N18.6] Procedures VA CREAT AV FISTULA,AUTOGENOUS GRAFT VA CREAT AV FISTULA,NON-AUTOGENOUS GRAFT LEFT UPPER EXTREMITY ARTERIOVENOUS FISTULA CREATION Referral ID Status Reason Start Date Expiration Date Visits Re quested Visits Authorized [id number] 1 1 Encounter Details Date Type Department Care Team (Latest Contact Info) Description 12/30/2020 10:22 AM CDT - 12/30/2020 12:49 PM CDT Hospital Encounter [facility] [address] [place] [address] Herberth Rodgers MD [address] [facility] [address] [place] [address] Discharge Disposition: Discharge to home or self care Social History Tobacco Use Types Packs/Day Years Used Date Smoking Tobacco: Former Cigarettes Q uit: 2016 AUDIT-C Answer Date Recorded Q1: How often do you have a drink containing alc ohol? Never 12/30/2020 Average Number of Drinks Not on file 10/14/2 021 Q3: How often do you have si x or more drinks on one occasion? Never 12/30/2020 Comments Unknown Sex and Gender Information Value Date Recorded Sex Assigned at Not on file Legal Sex Female 12:59 AM [employer] Gender Identity Not on file Sexual Orientation Not on file documented as of this encounter Last Filed Vital Signs Vital Sign Reading Time Taken Comments Blood Pressure 146/77 12/30/2020 11:45 AM CDT Pulse 61 12/30/2020 11:23 AM CDT Temperature 36.6 ??C (97.9 ??F) 12/30/2020 11:45 AM C DT Respiratory Rate 16 12/30/2020 11:45 AM CDT Oxygen Saturation 92% 12/30/2020 11:45 AM CDT Inhaled Oxygen Concentration - - Weight [...] mouth daily as needed 0.5 tablet bid HYDROcodone-acet aminophen (NORCO) 5-325 mg per tablet Take 1 tablet by mouth every 6 hours multivitamin with minerals tablet Take 1 tablet by mouth 2 (two) times a day primidone (MYSOLINE) 50 mg tablet Take 1 tablet (50 mg total) by mouth 2 (two) times a day 12/27/2020 propranoloL (INDERAL) 60 mg tablet Take 1 tablet (60 mg total) by mouth 2 times daily rosuvastatin (CRESTOR) 10 mg tablet Take 2 tablets (20 mg total) by mouth daily levothyroxine (SYNTHROID) 200 mcg tablet Take 1 tablet (200 mcg total) by mouth daily alendronate (FOSAMAX) 70 mg tablet TAKE 1 TABLET BY MOUTH 1 TIME A WEEK 30 MINUTES BEFORE FIRST FOOD OR BEVERAGE OR MEDICINE OF THE DAY WITH WATER 09/28/2020 1 furosemide (LASIX) 40 mg tablet Take 40 mg by mouth nightly 1 oxymetazoline (AFRIN) 0.05 % nasal spray Administer 2 sprays into each nostril 2 (two) times a day 1 pregabalin (Lyrica) 100 mg capsule Take 200 mg by mouth 2 (two) times a day 1 sertraline (ZOLOFT) 100 mg tablet daily 1 spironolactone (ALDACTONE) 50 mg tablet Take 50 mg by mouth daily 1 topiramate (TOPAMAX) 50 mg tablet Take 2 tabs bid 06/28/2016 1 documented as of this encounter Discharge Disposition Disposition Code Departure Means Destination Discharge to home or self care documented in this encounter Nursing Notes * Miley Velasco RN - 12/30/2020 12:46 PM CDT Pt and dr rodgers agreed to cancel surgery today and follow up. Pt agreeable and verbalized understanding documented in this encounter Miscellaneous Notes * Pre-Procedure Instructions - Mich Lemus RN - 12/27/2020 10:14 AM CDT Surgery Reminder Checklist: Please arrive to [facility] for scheduled surgery on RRIVE AT 1100 AM. . If the surgeons office tells you to arrive at a different time, please follow their instructions. Please use Entrance A also known as [facility], then follow the signs for OutpatientSurgery. DO NOT eat OR DRINK after midnight (this includes gum, mints, hard candy, and chewable antacids). TAKE THE FOLLOWING MEDICATIONS MORNING OF SURGERY: CYMBALTA, DEVAUGHN, SYNTHROID, LYRICA, PROPANOLOL, CRESTOR, NORCO IF NEEDED. (you may take your medications with enough water to safely swallow them) DO NOT TAKE LASIX OR SPIROLACTONE DAY OF SURGERY. DO NOT drink alcohol, smoke cigarettes/vapes/e-cigarettes/marijuana, or take illicit/illegal drugs of any kind at least 24 hours prior to surgery. NO ASPIRIN CONTAINING PRODUCTS, IBUPROFEN, ALEVE, MULTIVITAMINS, HERBAL SUPPLEMENTS, FISH OIL, or VITAMIN E. (LAST DOSE: 12/27/2020) May take TYLENOL (ACETAMINOPHEN) as needed for pain. [place] your teeth morning of procedure. Use mouth wash if available. Do not swallow any liquids whencleansing your mouth. Shower with Antibacterial soap EITHER EVENING BEFORE OR MORNING OF SURGERY. Example: Dial or Safeguard. After showering, do not apply any lotions, colognes, oils, deodorant, powder, or make-up. BRING ANY CURRENT AND NEW PRESCRIPTIONS IN THE BOTTLES OR PICTURES OF THE LABELS TO THE HOSPITAL FOR REVIEW. Expect to remove wigs, dentures/partials, contact lenses, piercings, hearing aides, and prostheses before surgery. Do not wear jewelry to the hospital on the day of surgery. Bring glasses and hearing aides (with cases for both), inhalers, and CPAP/BiPAP machine day of surgery. If you will be admitted to the hospital after surgery, feel free to bring a toiletry bag. Arrange for a friend or family member to pick you up from the hospital, drive you home, and assist you if necessary. You will not be allowed to drive home. NO non-medical transport services (buses, taxis, etc) allowed. A responsible adult must be with you for 24 hours after your procedure. Call your surgeon if you develop a rash, fever, cold, or any other signs/symptoms of infection prior to surgery. COVID-19 SWAB: You must be swabbed for COVID-19 on TODAY Sunday12/27/2020. Specimen collection site is located at [address] [place] [address]. Operating hours are 0800 AM TO 4 PM. You will be required to quarantine at home immediately after being swabbed until the day of surgery. This includes no errands or mingling with others that live outside your household. This is to ensure that you do not get any new possible COVID exposure prior to entering the hospital. Your procedure can be cancelled if you do not follow these guidelines. Any questions/concerns, please call the Admission Testing Center at [phone]. THANK MICH HUDSON RN * Perioperative Nursing Note - Mich Lemus RN - 12/27/2020 9:52 AM CDT PATIENT CALLED AND GAVE PERMISSION TO SPEAK WITH HER DAUGHTER ARIN FOR PRE TESTING. documented in this encounter Plan of Treatment Not on file documented as of this encounter Procedures Procedure Name Priority Date/Time Associated Diagnosis Comments ECG 12-LEAD STAT 12/30/2020 11:29 AM CDT EGFR Timed 12/30/2020 11:20 AM CDT DIFFERENTIAL AUTO Timed 12/30/2020 11: 20 AM CDT CBC WITH AUTO DIFFERENTIAL Timed 12/30/2020 11:20 AM CDT APTT Timed 12/30/2020 11:20 AM CDT PROTIME-INR Timed 12/30/2020 11:20 AM CDT BASIC METABOLIC PANEL Timed 12/30/2020 11:20 AM CDT documented in this encounter Results * ECG 12 lead (12/30/2020 11:29 AM CDT) Ventricular Rate EKG/Min 61 BPM [facility] Atrial Rate 61 BPM [facility] VA-Interval (MSEC) 218 ms [facility] QRS-Interval (MSEC) 102 ms [facility] QT-Interval (MSEC) 414 ms [facility] QTc 416 ms [facility] P [place] 78 degrees [facility] R [place] -42 degrees [facility] T [place] 50 degrees [facility] Diagnosis Sinus rhythm with 1st degree A-V block Left axis deviation Abnormal ECG When compared with ECG of 24-JUN-2008 13:01, No significant change was found [facility] 12/30/2020 11:2 9 AM CDT 12/30/2020 4:14 PM CDT us Yariel Claros MD ECG ORDERABLES Final Re sult Performing Organization Address City/[facility] Co de Phone Number [facility] * eGFR (12/30/2020 11:20 AM CDT) eGFR 16 mL/min/1.7 3 m2 SIMON Comment: Interpretive Data Reference Interval Normal ?>/= 90 mL/min/1.73m2 Mildly decreased* ? 60 - 89 mL/min/1.73m2 Mildly to moderately decreased ?45 - 59 mL/min/1.73m2 Moderately to severely decreased ??30 - 44 mL/min/1.73m2 Severely decreased ?15 - 29 mL/min/1.73m2 Kidney Failure ?< 15 ??mL/min/1.73m2 *Relative to young adult level Estimated glomerular filtration rate is determined by the CKD-EPI equation recommended by the National Kidney Foundation (KDIGO 2012 Clinical Practice Guideline for the Evaluation and Management of Chronic Kidney Disease. Kidney Intnl Suppl Mar 2012;3:1). The CKD-EPI equation should not be used for patients with unstable renal function and has not been validated in children and those over 70. Current interpretive data was last reviewed 2020 Blood 12/30/2020 11:2 0 AM CDT 12/30/2020 11:24 AM CDT us Herberth Rodgers MD LAB BLOOD ORDERABLES Final Result Performing Organization Address [facility] Co de Phone Number SIMON [phone] [facility] [place] [address] * (ABNORMAL) Differential, auto (12/30/2020 11:20 AM CDT) Neutrophil abs 5.5 1.7 - 6.5 K/cumm [facility] Imm gran abs 0.0 0.0 - 0.1 K/cumm [facility] Lymphocyte abs 2.1 0.8 - 3.3 K/cumm [facility] Monocyte abs 1.1(H) 0.2 - 0.8 K/cumm [facility] Eosinophil abs 0.3 0.0 - 0.5 K/cumm [facility] Basophil abs 0.1 0.0 - 0.1 K/cumm [facility] Neutrophil pct 60.7 % [facility] Comment: Interpretive Data Percent cell count reference ranges are not reported, since discordance with absolute values may lead to misinterpretation of CBC data. Current Interpretive Data was last revised on 2017. Imm gran pct 0.3 % [facility] Comment: Interpretive Data Percent cell count reference ranges are not reported, since discordance with absolute values may lead to misinterpretation of CBC data. Current Interpretive Data was last revised on 2017. Lymphocyte pct 23.4 % [facility] Comment: Interpretive Data Percent cell count reference ranges are not reported, since discordance with absolute values may lead to misinterpretation of CBC data. Current Interpretive Data was last revised on 2017. Monocyte pct 11.6 % [facility] Comment: Interpretive Data Percent cell count reference ranges are not reported, since discordance with absolute values may lead to misinterpretation of CBC data. Current Interpretive Data was last revised on 2017. Eosinophil pct 3.4 % [facility] Comment: Interpretive Data Percent cell count reference ranges are not reported, since discordance with absolute values may lead to misinterpretation of CBC data. Current Interpretive Data was last revised on 2017. Basophil pct 0.6 % [facility] Comment: Interpretive Data Percent cell count reference ranges are not reported, since discordance with absolute values may lead to misinterpretation of CBC data. Current Interpretive Data was last revised on 2017. Blood 12/30/2020 11:2 0 AM CDT 12/30/2020 11:24 AM CDT Herberth Rodgers MD LAB BLOOD ORDERABLES Final Result [address] [address] * Protime-INR (12/30/2020 11:20 AM CDT) [facility] PT 13.3 12.0 - 14.6 sec [facility] INR 1.0 [facility] Comment: Ref Range High Interpretive data Oral anticoagulant therapeutic ranges: Venous thromboembolism prophylaxis or treatment: 2.0-3.0 CARDIOLOGY Standard range: 2.0-3.0 High-intensity range: 2.5-3.5 Refer to indication-specific guidelines for appropriate target ranges for prosthetic heart valve replacement. Current interpretive data was last revised on 2019. Blood 12/30/2020 11:2 0 AM CDT 12/30/2020 11:24 AM CDT Herberth Rodgers MD LAB BLOOD ORDERABLES Final Result Performing Organization Address [facility] de Phone Number [address] [address] * (ABNORMAL) CBC with auto differential (12/30/2020 11:20 AM CDT) [facility] WBC 9.1 3.8 - 9.9 K/cumm [facility] Hgb 15.1 11.9 - 15.5 g/dL [facility] Hct 47.3(H) 35.6 - 45.5 % [facility] Plt 194 150 - 400 K/cumm [facility] MPV 11.0 9.1 - 12.3 fL [facility] RBC 4.93 3.90 - 5.20 M/cumm [facility] MCV 95.9 81.3 - 96.4 fL [facility] MCH 30.6 27.1 - 33.3 pg [facility] MCHC 31.9(L) 32.3 - 35.7 g/dL [facility] RDW CV 13.2 11.1 - 14.9 % [facility] RDW SD 46.6 35.7 - 48.1 fL [facility] NRBC abs 0.00 0.00 - 0.01 K/cumm [facility] Blood 12/30/2020 11:2 0 AM CDT 12/30/2020 11:24 AM CDT Herberth Rodgers MD LAB BLOOD ORDERABLES Final Result Performing Organization Address [facility] Co de Phone Number [facility] [address] [place] [address] * (ABNORMAL) Basic metabolic panel (12/30/2020 11:20 AM CDT) Pathologist [facility] Sodium 141 135 - 145 mmol/L [facility] Potassium, pl 5.1(H) 3.3 - 4.9 mmol/L [facility] Chloride 99 97 - 110 mmol/L [facility] CO2 31 22 - 32 mmol/L [facility] Anion gap 11 2 - 15 mmol/L [facility] BUN 30(H) 8 - 25 mg/dL [facility] Creatinine 2.80(H) 0.60 - 1.10 mg/dL [facility] Glucose 91 70 - 199 mg/dL [facility] Comment: Interpretive Data Fasting glucose >/= 126 mg/dl is diagnostic for diabetes. ?? Fasting is defined as no caloric intake for at least 8 hours. Fasting glucose between 100 mg/dl to 125 mg/dl is diagnostic of prediabetes. In a patient with classic symptoms of hyperglycemia or hyperglycemic crisis, a random glucose >/= 200 mg/dl is diagnostic for diabetes. In the absence of unequivocal hyperglycemia, results should be confirmed by repeat testing. The classification and Diagnosis of Diabetes Diabetes Care 2017;40 (Suppl. 1):S11. Current interpretive data was last revised 2017. Calcium 10.0 8.5 - 10.3 mg/dL [facility] Blood 12/30/2020 11:2 0 AM CDT 12/30/2020 11:24 AM CDT Herberth Rodgers MD LAB BLOOD ORDERABLES Final Result Performing Organization Address [facility] Co de Phone Number [address] [place] [address] * aPTT (12/30/2020 11:20 AM CDT) aPTT 34 22 - 37 sec SIMON ELIZABETH Comment: Interpretive data aPTT test has not been evaluated for monitoring heparin therapy. The anti-Xa is the preferred test. Current interpretive data was last revised on 2019. Blood 12/30/2020 11:2 0 AM CDT 12/30/2020 11:24 AM CDT us Herberth Rodgers MD LAB BLOOD ORDERABLES Final Result [facility] ELIZABETH [address] [facility] [place] [address] documented in this encounter Visit Diagnoses Diagnosis End stage renal disease (CMS/HCC) (HCC)- Primary End stage renal disease documented in this encounter Admitting Diagnoses Diagnosis End stage renal disease (CMS/HCC) (HCC) End stage renal disease documented in this encounter Administered Medications Inactive Administered Medications - up to 3 most recent administrations Medication Order MAR Action Action Date Dose Rate Site sodium chloride 0.9% flush 0.5-20 mL 0.5-20 mL, intra-catheter, As needed, line care, Starting on Bernarda 12/30/20 at 1040, Pre-Op, Flush volume based on line type and size. Flush before and after each use. sodium chloride 0.9% infusion 30 mL/hr, intravenous, Continuous, Starting on Bernarda 12/30/20 at 1115, Pre-Op New Bag 12/30/2020 11:25 AM CDT 30 mL/hr 30 mL /hr documented in this encounter Historical Medications * This list may reflect changes made after this encounter. fexofenadine (DEVAUGHN) 180 mg tablet Take 1 tablet (180 mg total) by mouth daily as needed 0.5 tablet bid multivitamin with minerals tablet Take 1 tablet by mouth 2 (two) times a day oxymetazoline (AFRIN) 0.05 % nasal spray Administer 2 sprays into each nostril 2 (two) times a day 1 added in this encounter Active and Recently Administered Medications Times are shown in CDT. Scheduled Medication Order 12/28/2020 12/29/2020 12/30/2020 acetaminophen (TYLENOL) tablet 975 mg 975 mg (rounded from 1,000 mg), oral, Once, On Bernarda 12/30/20 at 1115, For 1 dose, Pre-Op, Indications: Pre-Emptive Analgesia 1104 (Incomplete - P svetlana: Leah Griffith RN - Comment: pt had hyrocodone at home w/325mg in it) ceFAZolin (ANCEF) 1 gram/10 mL in sterile water (premix) 3,000 mg 3,000 mg, intravenous, at 600 mL/hr, Administer over 3 Minutes, Once, On Bernarda 12/30/20 at 1115, For 1 dose, Pre-Op, Administer within 60 minutes of incision., Indications: Prophylaxis, Surgical 1115 (Due) famotidine (PEPCID) tablet 20 mg 20 mg, oral, Once, On Bernarda 12/30/20 at 1115, For 1 dose, Pre-Op, Indications: gastroesophageal reflux disease 1106 (Incomplete - P rovider: Leah Griffith RN) Continuous Medication Order 12/28/2020 12/29/2020 12/30/2020 sodium chloride 0.9% infusion 30 mL/hr, intravenous, Continuous, Starting on Bernarda 12/30/20 at 1115, Pre-Op 1125 (New Bag - Prov ider: Leah Griffith RN) PRN Medication Order 12/28/2020 12/29/2020 12/30/2020 sodium chloride 0.9% flush 0.5-20 mL 0.5-20 mL, intra-catheter, As needed, line care, Starting on Bernarda 12/30/20 at 1040, Pre-Op, Flush volume based on line type and size. Flush before and after each use. documented in this encounter Orders Medications Ordered That Regan ht Not Have Been Administered Count Last Ordered Date First Ordered Date acetaminophen (TYLENOL) tablet 975 mg 1 ceFAZolin (ANCEF) 1 gram/10 mL in sterile water (premix) 3,000 mg 1 12/30/2020 famotidine (PEPCID) tablet 20 mg 1 12/31/19 sodium chloride 0.9% flush 0.5-20 mL 1 12/17 documented in this encounter Care Teams Dispatcher Clerk Relationship Specialty Start Date End Date Gaudencio Miranda MD [address] [place] [id number] PCP - General 07/25/16 documented as of this encounter
--- OUTSIDE RECORDS SUMMARY | 2024-03-07 14:13 | XMS_ITS | Encounter Summary ---
Author Organization [facility] Healthcare Address [address] [place] [address] Care Team Providers Care Entry Level Software Developer Name Role Phone Miscellaneous, Not In File Primary Care Provider Unavailable Encounter Details Date Type Department Care Team (Latest Contact Info) Description 06/28/2016 2:16 PM CDT - 06/28/2016 11:59 PM CDT Hospital Encounter [facility] INTERIM [phone] Grace Murillo MD [address] [phone] [place], [place] [id number] Discharge Disposition: Discharge to home or self care Social History Tobacco Use Types Packs/Day Years Used Date Smoking Tobacco: Former Comments Unknown Sex and Gender Information Value Date Recorded Sex Assigned at Not on file 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
--- OUTSIDE RECORDS SUMMARY | 2024-03-07 14:13 | XMS_ITS | Encounter Summary ---
Author Organization [facility] Address [address] [place] [address] Care Team Providers Care Residential Care Facility Manager Name Role Phone Gaudencio Miranda MD Primary Care Provider [phone] Reason for Referral * Cardiology (Routine) - Closed Specialty Diagnoses / Procedures Referred By Mallory valentino Referred To Contact Diagnoses Other chest pain PIERRE (dyspnea on exertion) Preop cardiovascular exam Procedures Transthoracic Echo Complete W Doppler/CF Stacy Peña MD [address] [address] Phone: tel: fax: [facility] Referral ID Status Reason Start Date Expiration Date Visits Re quested Visits Authorized [id number] Closed 01/17/2021 02/16/2022 1 1 Reason for Visit * Reason Comments New Patient chest discomfort Pre-op Exam having graft put in for dialysis * Consultation (Routine) - Closed Specialty Diagnoses / Procedures Referred By Mallory valentino Referred To Contact Cardiology Diagnoses Chest discomfort Pre-operative clearance Herberth Rodgers MD [address] [place] [address] Phone: tel: fax: Stacy Peña MD [address] [address] Phone: tel: fax: Referral ID Status Reason Start Date Expiration Date V isits Requested Visits Authorized [id number] Closed Specialty Services Required 12/31/2020 01/30/2022 1 1 Encounter Details Date Type Department Care Team (Latest Contact Info) Description 01/17/2021 3:00 PM CDT Office Visit [facility] Cardiology [address] [place] [address] Stacy Peña MD [address] [place] [id number], [place] [address] Other chest pain (Primary Dx); Chest discomfort; Pre-operative clearance; Other hyperlipidemia; PIERRE (dyspnea on exertion); Preop cardiovascular exam Social History Tobacco Use Types Packs/Day Years Used Date Smoking Tobacco: Former Cigarettes Q uit: 2015 AUDIT-C Answer Date Recorded Q1: How often do you have a drink containing alc ohol? Never 12/30/2020 Average Number of Drinks Not on file 021 Q3: How often do you have si x or more drinks on one occasion? 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 Gender Identity Not on file Sexual Orientation Not on file documented as of this encounter Last Filed Vital Signs Vital Sign Reading Time Taken Comments Blood Pressure 130/80 01/17/2021 3:07 PM CDT Pulse 63 01/17/2021 3:07 PM CDT Temperature - - Respiratory Rate - - Oxygen Saturation 98% 01/17/2021 3:07 PM CDT Inhaled Oxygen Concentration - - Weight 136.1 kg (300 lb) 01/17/2021 3:07 PM CDT Height 172.7 cm (5' 8 ) 01/17/2021 3:07 PM CDT Body Mass Index 45.61 01/17/2021 3:07 PM CDT documented in this encounter Progress Notes * Stacy Peña MD - 01/17/2021 3:00 PM CDT [facility] DATE OF VISIT: 01/17/2021 CHIEF COMPLAINT Chief Complaint Patient presents with ??? New Patient chest discomfort ??? Pre-op Exam having graft put in for dialysis HPI Peg Son is a 70 y.o. female with past medical history of CKD stage 4, COPD, depression, hypertension, hypothyroidism, liver cirrhosis. Patient presents here to our office with her daughter forevaluation for chest discomfort and for preoperative cardiovascular examination. Apparently patientwill need AV graft fistula in anticipation for dialysis. She admits to occasional left chest pain under her left breast lasting for about a couple minutes. It is sharp in nature worse upon deep breathing. Patient is very sedentary and complains of dyspnea on exertion. She complains a lots of indigestion as well. She smoked for about 50 years. Quit 5 years ago. Denies palpitations, syncope. 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 Penaloza. GFR is 15 MEDICAL HISTORY Past Medical History: Diagnosis Date ??? Chronic kidney disease stage 4 ??? COPD (chronic obstructive pulmonary disease) (CMS/HCC) (HCC) ??? Depression ??? Dry skin ??? Food intolerance PEANUTS ??? GERD (gastroesophageal reflux disease) ??? Headache ??? Hypertension ??? Hypothyroidism ??? Infectious viral [...] partial dentures ?UPPER AND LOWER PER DAUGHTER Past Surgical History: Procedure Laterality Date ??? BREAST SURGERY Right 1980 lumpectomy ??? EYE SURGERY CATARACTS ??? NECK SURGERY Neck Surgery - (Added by TW Conv) ??? SPINAL FUSION Spinal Arthrodesis - (Added by TW Conv) ??? VAGINAL DELIVERY x2 Social History Tobacco Use ??? Smoking status: Former Smoker Types: Cigarettes Quit date: 2016 Years since quittin.8 ??? Smokeless tobacco: Not on file Vaping Use ??? Vaping Use: Never used Substance Use Topics ??? Alcohol use: Not on file ??? Drug use: Never Family History Problem Relation Age of Onset ??? Pneumonia Mother ??? Cancer Father ??? Cancer Sister ??? Heart attack Brother MEDICATIONS HOME MEDICATIONS : calcitRIOL (ROCALTROL) 0.25 mcg capsule cholecalciferol (VITAMIN D-3) [address] (CYMBALTA) 60 mg capsule fexofenadine (DEVAUGHN) 180 mg tablet furosemide (LASIX) 40 mg tablet HYDROcodone-acetaminophen (NORCO) 5-325 mg per tablet levothyroxine (Synthroid) 200 mcg tablet multivitamin with minerals tablet pregabalin (Lyrica) 100 mg capsule primidone (MYSOLINE) 50 mg tablet propranoloL (INDERAL) 60 mg tablet rosuvastatin (Crestor) 10 mg tablet spironolactone (ALDACTONE) 50 mg tablet ALLERGIES Allergies Allergen Reactions ??? Sulfa (Sulfonamide Antibiotics) Hives Reaction: Hives, ??? Aspirin Swelling Reaction: Swelling, REVIEW OF SYSTEMS Review of Systems Constitutional: Positive for malaise/fatigue. Negative for chills and fever. HENT: Negative for congestion and sore throat. Eyes: Negative for blurred vision and double vision. Cardiovascular: Positive for chest pain and dyspnea on exertion. Negative for claudication, leg swelling, near-syncope, orthopnea, palpitations, paroxysmal nocturnal dyspnea and syncope. Respiratory: Positive for shortness of breath. Negative for cough, hemoptysis, snoring, sputum production and wheezing. Endocrine: Negative for cold intolerance and polyuria. Hematologic/Lymphatic: Negative for bleeding problem. Does not bruise/bleed easily. Skin: Negative for itching and rash. Musculoskeletal: Negative for back pain, joint pain and joint swelling. Gastrointestinal: Negative for abdominal pain, diarrhea, nausea and vomiting. Genitourinary: Negative for dysuria, frequency and hematuria. Neurological: Negative for focal weakness, headaches and light-headedness. Psychiatric/Behavioral: Negative for depression. The patient is not nervous/anxious. Allergic/Immunologic: Negative for environmental allergies and hives. PHYSICAL EXAM Vitals BP 130/80 (BP Location: Left arm, Patient Position: Sitting) Pulse 63 Ht 172.7 cm (5' 8 ) Wt 136.1 kg (300 lb) SpO2 98% BMI 45.61 kg/m?? Body mass index is 45.61 kg/m??. Physical Exam Constitutional: General: She is not in acute distress. Appearance: She is well-developed. HENT: Head: Normocephalic and atraumatic. Right Ear: External ear normal. Left Ear: External ear normal. Eyes: General: No scleral icterus. Left eye: No discharge. Conjunctiva/sclera: Conjunctivae normal. Neck: Thyroid: No thyromegaly. Cardiovascular: Rate and Rhythm: Normal rate and regular rhythm. Heart sounds: Normal heart sounds. No murmur heard. No friction rub. No gallop. Pulmonary: Effort: Pulmonary effort is normal. No respiratory distress. Breath sounds: Normal breath sounds. No wheezing or rales. Chest: Chest wall: No tenderness. Abdominal: General: There is no distension. Palpations: Abdomen is soft. There is no mass. Tenderness: There is no abdominal tenderness. Musculoskeletal: General: No tenderness or deformity. Cervical back: Normal range of motion and neck supple. Right lower leg: No edema. Left lower leg: No edema. Skin: General: Skin is warm. Findings: No erythema or rash. Neurological: Mental Status: She is alert and oriented to person, place, and time. Cranial Nerves: No cranial nerve deficit. Motor: No abnormal muscle tone. Psychiatric: Mood and Affect: Mood normal. Behavior: Behavior normal. LABS AND OTHER DIAGNOSTIC TESTS Lab Results Component Value Date WBC 9.1 12/30/2020 HGB 15.1 12/30/2020 HCT 47.3 (H) 12/30/2020 MCV 95.9 12/30/2020 Chemistry Component Value Date/Time SODIUM 141 12/30/2020 1120 POTASSIUM 5.1 (H) 12/30/2020 1120 CHLORIDE 99 12/30/2020 1120 CO2 31 12/30/2020 1120 BUNSER 30 (H) 12/30/2020 1120 CREATININE 2.80 (H) 12/30/2020 1120 GLUCOSE 91 12/30/2020 1120 Component Value Date/Time CALCIUM 10.0 12/30/2020 1120 Lipid panel January 17, 2021 shows LDL 70, HDL 37 and triglycerides 253 and total cholesterol 157 EKG December 30, 2020 shows sinus rhythm, left axis deviation, first-degree heart block ASSESSMENT Diagnoses and all orders for this visit: Other chest pain (Primary) - Transthoracic Echo Complete W Doppler/CF; Future Chest discomfort - Ambulatory referral to Cardiology Pre-operative clearance - Ambulatory referral to Cardiology Other hyperlipidemia - POCT lipid panel PIERRE (dyspnea on exertion) - Transthoracic Echo Complete W Doppler/CF; Future Preop cardiovascular exam - Transthoracic Echo Complete W Doppler/CF; Future PLAN/RECOMMENDATIONS In regards to chest pain, pain is under the left breast aggravated by taking deep breathing. Sounds to be atypical for angina. She also complains of heartburn and indigestion. Discussed with the patient option for doing ischemic evaluation however she has a large body habitus and most likely if wedo stress testing her stress test will be abnormal. Discussed option for cardiac catheterization however given advanced kidney disease she will most likely end on dialysis. She absolutely does not want to start on and dialysis soon. She wants to wait for her kidneys to fail completely on their own.She refuses the idea of starting dialysis because cardiac catheterization. At this time will recommend obtaining an echocardiogram. If echocardiogram looks unremarkable then she will be considered atlow risk for undergoing AV fistula. In regards to hypertension blood pressure is controlled. Continue Lasix, Aldactone. Blood pressure 142/76 130/80 In regards to hyperlipidemia, lipid panel today shows excellent control of lipids. Triglycerides elevated but this is nonfasting. CKD stage 5, follows up with Nephrology. Not on dialysis yet. Follow up in the office in Five months. Stacy Peña MD NING MACHINE OPERATOR documented in this encounter Plan of Treatment Not on file documented as of this encounter Procedures Procedure Name Priority Date/Time Associated Diagnosis Comments POCT LIPID PANEL Routine 01/17/2021 3:45 PM CDT Other hyperlipidemia documented in this encounter Results * TRANSTHORACIC ECHO (TTE) COMPLETE W DOPPLER/CF W CONTRAST (02/07/2021 2:57 PM SPINNING MACHINE OPERATOR) Anatomical Region Laterality Modality Ultrasound 02/07/2021 1:35 PM SPINNING MACHINE OPERATOR Narrative 02/07/2021 7:19 PM SPINNING MACHINE OPERATOR [facility] Cardiology [address], [place] [address] [address] [facility] [address], [place] [address] P:[phone] P:[phone] Echocardiographic Report Patient Name: PEG SON : 1950 Study Date: 02/07/2021 1:35:00 PM Gender: F Tech: Location: [place] Ref.Provider: STACY PEÑA Height(Cm): 173 BSA: 2.43 [...] Findings: Interpretation Site: Exam was interpreted at [facility]. Left Ventricle: Normal left ventricular systolic [...] used. Electronically Signed By: Geena Tran MD, [facility] 2021-02-07 19:19:45 SPINNING MACHINE OPERATOR Procedure Note Geena Tran MD - 02/07/2021 [facility] Cardiology [address] [facility] [address], [place] [address] [address] [facility] [address], [place] [address] P:[phone] P:[phone] Echocardiographic Report Patient Name: PEG SONPatient ID: [id number] : [id number] Date: 02/07/2021 1:35:00 PM Gender: FAccession #: [id number] Tech: GMLocation: [place] Ref.Provider: Horacio PEÑAt(Cm): 173 BSA: 2.43Weight(Kg): 136.08 Heart Rate: 59BP: [...] 16.00 - 28.00 ] cc/m2 MV Decel [id number] [ 150 - 200 ] msec ACS MM 1.83 cm PV Peak Vel1.34 [ 0.40 - 0.80 ] m/s E'0.07 E/E' 10 Findings: Interpretation Site: Exam was interpreted at [facility]. Left Ventricle: Normal left ventricular systolic [...] agentused. Electronically Signed By: Geena Tran MD, FACC 2021-02-07 19:19:45 SPINNING MACHINE OPERATOR us Stacy Peña MD CV ECHO PROCEDURES F inal Result * POCT lipid panel (01/17/2021 3:45 PM CDT) Cholesterol, POC 157 mg/dL Comment:GLU = 118 HDL, POC 37 mg/dL Triglycerides, POC 253 mg/dL LDL Cholesterol POC 70 mg/dL Chol/HDL Ratio, POC 4.3 Non-HDL Cholesterol, POC 120 mg/dL Cholesterol Total, POC 157 mg/dL Capillary blood 01/17/2021 3 :45 PM CDT us Stacy Peña MD POINT OF CARE TEST O RDERABLES Final Result documented in this encounter Visit Diagnoses Diagnosis Other chest pain- Primary Chest discomfort Other chest pain Pre-operative clearance Unspecified pre-operative examination Other hyperlipidemia PIERRE (dyspnea on exertion) Other dyspnea and respiratory abnormality Preop cardiovascular exam Pre-operative cardiovascular examination Other chest pain PIERRE (dyspnea on exertion) Other dyspnea and respiratory abnormality Preop cardiovascular exam Pre-operative cardiovascular examination documented in this encounter Discontinued Medications Medication Sig Discontinue Reason Start Date End Da te sertraline (ZOLOFT) 100 mg tablet daily Therapy completed 01/17/2021 topiramate (TOPAMAX) 50 mg tablet Take 2 tabs bid Therapy completed 06/28/2016 01/17/2021 oxymetazoline (AFRIN) 0.05 % nasal spray Administer 2 sprays into each nostril 2 (two) times a day Therapy completed 01/17/2021 alendronate (FOSAMAX) 70 mg tablet TAKE 1 TABLET BY MOUTH 1 TIME A WEEK 30 MINUTES BEFORE FIRST FOOD OR BEVERAGE OR MEDICINE OF THE DAY WITH WATER Therapy completed 09/28/2020 01/17/2021 documented as of this encounter Historical Medications * This list may reflect changes made after this encounter. primidone (MYSOLINE) 50 mg tablet Take 1 tablet (50 mg total) by mouth 2 (two) times a day 12/27/2020 added in this encounter Orders Outpatient Referral Count Last Ordered Date Fir st Ordered Date AMB REFERRAL TO CARDIOLOGY 1 01/17/2021 documented in this encounter Care Teams Residential Care Facility Manager Relationship Specialty Start Date End Date Gaudencio Miranda MD [address] [place] [address] PCP - General 07/25/16 documented as of this encounter
--- OUTSIDE RECORDS SUMMARY | 2024-03-07 14:13 | XMS_ITS | Encounter Summary ---
Author Organization [facility]/Health system Facility Care Team Providers Care Band Director Name Role Phone Gaudencio Miranda MD Primary Care Provider [phone] Encounter Details Date Type Department Care Team (Late st Contact Info) Description 09/04/2013 7:02 PM CDT - 03/18/2014 11:59 PM MERCHANDISE COLLECTOR Hospital Encounter [facility] Grace Lanier MD [address] [facility] [id number] [place], [place] [id number] Other chronic pain; Cervical spondylosis without myelopathy; Lumbosacral spondylosis without myelopathy; Degeneration of cervical intervertebral disc; Postlaminectomy syndrome, cervical region; Spinal stenosis in cervical region; Low back pain; Sciatica; Myalgia and myositis; Osteoarthrosis involving lower leg Social History Tobacco Use Types Packs/Day Years Used Date Smoking Tobacco: Never Assessed Comments Unknown Sex and Gender Information Value Date Recorded Sex Assigned at Not on file 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 Gender Identity Not on file Sexual Orientation Not on file documented as of this encounter Plan of Treatment Not on file documented as of this encounter Visit Diagnoses Diagnosis Other chronic pain Cervical spondylosis without myelopathy Lumbosacral spondylosis without myelopathy Degeneration of cervical intervertebral disc Postlaminectomy syndrome, cervical region Spinal stenosis in cervical region Low back pain Lumbago Sciatica Myalgia and myositis Unspecified myalgia and myositis Osteoarthrosis involving lower leg documented in this encounter Care Teams Band Director Relationship Specialty Start Date End Date Gaudencio Miranda MD [address] [place] [address] PCP - General 08/05/13 06/27/16 documented as of this encounter
--- OUTSIDE RECORDS SUMMARY | 2024-03-07 14:13 | XMS_ITS | Encounter Summary ---
Author Organization [facility] Address [address] [place] [address] Care Team Providers Care Mortician Investigator Name Role Phone Gaudencio Miranda MD Primary Care Provider [phone] Reason for Visit * Reason Comments Follow-up ESRD Encounter Details Date Type Department Care Team (Late st Contact Info) Description 12/15/2020 3:00 PM CDT Office Visit [facility] Vascular and Vein Surgery [address] [place] [address] [place] [address] [place] [address] [address] [place] [address] End stage renal disease (CMS/HCC) (HCC) (Primary Dx); Other hyperlipidemia Social History Tobacco Use Types Packs/Day Years [...] on file 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 Gender Identity Not on file Sexual Orientation Not on file documented as of this encounter Last Filed Vital Signs Vital Sign Reading Time Taken Comments Blood Pressure 122/67 12/15/2020 3:35 PM CDT Pulse 59 12/15/2020 3:35 PM CDT Temperature - - Respiratory Rate - - Oxygen Saturation - - Inhaled Oxygen Concentration - - Weight 133.4 kg (294 lb) 12/15/2020 3:35 PM CDT Height 172.7 cm (5' 8 ) 12/15/2020 3:35 PM CDT Body Mass Index 44.7 12/15/2020 3:35 PM CDT documented in this encounter Progress Notes * Herberth Rodgers MD - 12/15/2020 3:00 PM CDT Images from the original note were not included. Patient ID: Peg Son is a 70 y.o. female Visit Date: 12/15/2020 Chief Complaint Chief Complaint Patient presents with ??? Follow-up ESRD HPI 70-year-old female with chronic kidney disease stage 5 not yet on dialysis referred for dialysis access evaluation. Patient has kidney failure per her understanding is secondary to her ongoing medical problems that include hypertension. She denies unexplained weight loss swelling or volume overload. She is left arm dominant has never been on dialysis before. Recent lab work has shown slow but progressive trends toward end-stage renal disease. Patient has no current complaints. Past Medical History: Diagnosis Date ??? Chronic kidney disease ??? Depression ??? Dry skin ??? Food intolerance PEANUTS ??? Headache ??? Hypertension ??? Hypothyroidism ??? Obesity ??? Occasional tremors HANDSA NEW [...] Past Surgical History: Procedure Laterality Date ??? EYE SURGERY CATARACTS ??? NECK SURGERY Neck Surgery - (Added by TW Conv) ??? SPINAL FUSION Spinal Arthrodesis - (Added by TW Conv) Family History Family history unknown: Yes Social History Socioeconomic History ??? Marital status: Spouse name: None ??? Number of children: None ??? Years of education: None ??? Highest education level: None Occupational History ??? None Tobacco Use ??? Smoking status: Former Smoker Types: Cigarettes Quit date: 2016 Years since quittin.7 Vaping Use ??? Vaping Use: Never used Substance and Sexual Activity ??? Alcohol use: None ??? Drug use: Never ??? Sexual activity: Defer Other Topics Concern ??? None Social History Narrative Current smoker : (Added by TW Conv) Chronic pain : (Added by TW Conv) Social Determinants of Health Financial Resource Strain: ??? Difficulty of Paying Living Expenses: Not on file Food Insecurity: ??? Worried About Running Out of Food in the Last Year: Not on file ??? Ran Out of Food in the Last Year: Not on file Transportation Needs: ??? Lack of Transportation (Medical): Not on file ??? Lack of Transportation (Non-Medical): Not on file Physical Activity: ??? Days of Exercise per Week: Not on file ??? Minutes of Exercise per Session: Not on file Stress: ??? Feeling of Stress : Not on file Social Connections: ??? Frequency of Communication with Friends and Family: Not on file ??? Frequency of Social Gatherings with Friends and Family: Not on file ??? Attends Confucianist Services: Not on file ??? Active Member of Clubs or Organizations: Not on file ??? Attends Club or Organization Meetings: Not on file ??? Marital Status: Not on file Intimate Partner Violence: ??? Fear of Current or Ex-Partner: Not on file ??? Emotionally Abused: Not on file ??? Physically Abused: Not on file ??? Sexually Abused: Not on file ROS Constitutional: No change in appetite. No recent weight loss. No fevers chills or sweats. HEENT: No trouble swallowing. No tinnitus. Eyes: No visual disturbances Respiratory: No shortness of breath. No cough or sputum production. No wheezing. Cardiovascular: No chest pain. No palpitations. Gastrointestinal: No abdominal pain. No nausea vomiting or diarrhea. Genitourinary: No dysuria. No hematuria. Extremities: No claudication. No rest pain. No lower extremity ulcerations or infections. No significant edema. Musculoskeletal: No joint pains. No back pain. Neurologic: No dizziness. No syncope. No weakness. Skin: No rashes. No discoloration. Hematologic: no bleeding Psychiatric: no anxiety, no behavioral changes, no mood swings PE Constitutional: Alert and oriented HEENT: Head atraumatic and normocephalic Neck is supple No carotid bruits Extraocular movements full, sclerae anicteric Chest: Effort normal. Breath sounds normal. Cardiovascular: S1 and S2 are normal. No murmurs rubs or gallops appreciated. Abdominal: Soft, nontender, no masses. Extremities: Palpable femoral, popliteal, dorsalis pedis and posterior tibial pulses bilaterally. No significant edema. No ulcerations. Musculoskeletal: Normal range of motion. Neurologic: Cranial nerves 2-12 intact. Strength and sensation intact bilaterally. Skin: Warm and dry. No rashes. No discoloration. Psychiatric: Normal mood and affect. Behavior normal. Judgment normal. IMAGING STUDIES Upper extremity vein mapping visualized reviewed by myself shows bilateral cephalic veins appear sizable suitable for AV fistula creation. Diagnoses and all orders for this visit: End stage renal disease (CMS/HCC) ([facility]) (Primary) Assessment & Plan: Patient has chronic kidney disease stage 5 not yet on dialysis. After exam and vein mapping of recommended a non dominant left arm brachiocephalic AV fistula creation. The procedure its indications and all risks were thoroughly explained. She understands and agrees to proceed. Other hyperlipidemia Assessment & Plan: Hyperlipidemia controlled. Continue Crestor. Herberth Rodgers MD documented in this encounter Miscellaneous Notes * Assessment & Plan Note - Herberth Rodgers MD - 12/27/2020 10:51 AM CDT Associated Problem(s): Other hyperlipidemia Hyperlipidemia controlled. Continue Crestor. * Assessment & Plan Note - Herberth Rodgers MD - 12/27/2020 10:51 AM CDT Associated Problem(s): End stage renal disease (CMS/[facility]) ([facility]) Patient has chronic kidney disease stage 5 not yet on dialysis. After exam and vein mapping of recommended a non dominant left arm brachiocephalic AV fistula creation. The procedure its indications and all risks were thoroughly explained. She understands and agrees to proceed. documented in this encounter Plan of Treatment Not on file documented as of this encounter Visit Diagnoses Diagnosis End stage renal disease (CMS/HCC) (HCC)- Primary End stage renal disease Other hyperlipidemia documented in this encounter Care Teams Mortician Investigator Relationship Specialty Start Date End Date Gaudencio Miranda MD [address] [place] [address] PCP - General 07/25/16 documented as of this encounter
--- OUTSIDE RECORDS SUMMARY | 2024-03-07 14:13 | XMS_ITS | Encounter Summary ---
Author Organization [facility] Healthcare Address [address] [place] [address] Care Team Providers Care Line Builder Name Role Phone Gaudencio Miranda MD Primary Care Provider [phone] Herberth Rodgers MD Unavailable [phone] Reason for Visit * Auth/Cert Specialty Diagnoses / Procedures Referred By Contac t Referred To Contact Diagnoses End stage renal disease (CMS/HCC) (HCC) End stage renal disease (CMS/HCC) (HCC) [N18.6] Procedures SC CREAT AV FISTULA,AUTOGENOUS GRAFT SC CREAT AV FISTULA,NON-AUTOGENOUS GRAFT LEFT UPPER EXTREMITY ARTERIOVENOUS FISTULA CREATION Referral ID Status Reason Start Date Expiration Date Visits Re quested Visits Authorized [id number] 1 1 Encounter Details Date Type Department Care Team (Late st Contact Info) Description 02/24/2021 3:19 PM MUSIC JOURNALIST Anesthesia Event [address] [address] Bernarda Stephenson MD [address] [place] [id number] Efrain Coates MD [address] [place] [id number] Anesthesia Record Procedure Summary Procedure Name Responsible Anesthesiologist Anesthesia Start Time Anesthesia Stop Time LEFT UPPER EXTREMITY ARTERIOVENOUS FISTULA CREATION (Left: Elbow) Bernarda Stephenson MD 02/24/21 1519 02/24/21 163 2 Events Date Time Event Comment 02/24/2021 1342 1519 In Room 1519 An Start 1519 An Start Data 1526 An Induction The patient was reevaluated immediately before moderate or deep sedation use and before anesthesia induction. 1527 An LMA 1530 Anesthesia Ready 1537 Proc Start 1537 Incision Start 1623 Proc Fin 1628 Airway Removed 1629 an stop data 1630 Out of Room 1632 Handoff to RN I completed my handoff to the receiving nurse during which we: 1. Patient identified 2. Responsible provider identified 3. Pertinent medical history reviewed 4. Procedure type and surgical course discussed 5. Intraoperative anesthetic management and any significant issues discussed 6. Expectations and concerns for postop period discussed 7. Questions solicited from receiving nurse 8. Patient disposition at the time of handoff: PACU 1632 An Stop 1819 Release from care Meds Name Total fentaNYL 50 mcg/mL PF 100 mcg lidocaine (cardiac) syringe 2 % 60 mg propofol 120 mg ondansetron PF 4 mg dexamethasone 4 mg/mL 8 mg glycopyrrolate 0.3 mg ceFAZolin (ANCEF) 1 gram/10 mL in steril e water (premix) 3,000 mg 3,000 mg phenylephrine injection 100 mcg/mL 8 mcg phenylephrine (MAIDA-SYNEPHRIN E) 25,000 mcg in sodium chloride 0.9% 250 mL (100 mcg/mL) infusion 1.14 mg sodium chloride 0.9% infusion 400 mL * Agents Name O2% N2O O2 N2O Air Sevoflurane Inspired Sevoflurane * Blood No blood administrations on file. Lines, Drains, and Airways Type Details Placement Removal Hemodialysis AV Access Placement Date: 02/24/21 02/24/21 0000 by Radha Florez RN RETIRED Surgical Site 02/24/21; Left; Antecubital; 02/19/24 (Retired LDA, Removed/Completed by [facility] with LDA Utility); 1213 (Retired LDA, Removed/Completed by [facility] with LDA Utility) 02/24/21 0000 by Pieter Castillo RN 02/19/24 1213 by Discharge Provider, Automatic RETIRED Surgical Site 02/24/21; Anterior , Left, Upper; Arm; 02/19/24 (Retired LDA, Removed/Completed by [facility] with LDA Utility); 1213 (Retired LDA, Removed/Completed by [facility] with LDA Utility) 02/24/21 0000 by Pieter Castillo RN 02/19/24 1213 by Discharge Provider, Automatic Peripheral IV Placement Date: 02/24/21; Placement Time: 1235; Catheter Size: 20 G; Orientation: Right; Location: Antecubital; Site Prep: Chlorhexidine; Inserted by: Ban IVORY; Insertion Attempts: 1; Patient Tolerance: Tolerated well; Removal Date: 02/27/21; Removal Time: 1906; Removal Reason: Discharge 02/24/21 1235 by Leah Griffith RN 02/27/21 1906 by Mary Fry RN Supraglottic Airway Placement Date: 02/24/21; Placement Time: 1527 (created via procedure documentation); Mask Ventilation: 0; Size: 4; Insertion Attempts: 1; Removal Date: 02/24/21; Removal Time: 1628 02/24/21 1527 by Ale Sheridan CRNA 02/24/21 1628 by Ale Sheridan CRNA RETIRED Surgical Site 02/24/21; 1611; Le ft; Arm; dressing in place; 02/19/24 (Retired LDA, Removed/Completed by [facility] with LDA Utility); 1213 (Retired LDA, Removed/Completed by [facility] with LDA Utility) 02/24/21 1611 by Pieter Castillo RN 02/19/24 1213 by Discharge Provider, Automatic documented in this encounter Social History Tobacco Use Types Packs/Day Years [...] on file Legal 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 Gender Identity Not on file Sexual Orientation Not on file documented as of this encounter OR Notes * Anesthesia Postprocedure Evaluation - Bernarda Stephenson MD - 02/24/2021 6:18 PM CST Patient: Peg Son Procedure Summary Date: 02/24/21 Room / Location: [facility] / [facility] Anesthesia Start: 1519 Anesthesia Stop: 163 Procedure: LEFT UPPER EXTREMITY ARTERIOVENOUS FISTULA CREATION (Left Elbow) Diagnosis: End stage renal disease (CMS/HCC) (HCC) (End stage renal disease (CMS/HCC) (HCC) [N18.6]) Surgeons: Herberth Rodgers MD Responsible Provider: Bernarda Stephenson MD Anesthesia Type: general ASA Status: 4 Anesthesia Type: general Last vitals BP 117/58 (BP Location: Right arm, Patient Position: Sitting) Pulse 61 Temp 36.8 ??C (98.3 ??F)(Temporal) Resp 18 SpO2 94% Anesthesia Post Evaluation Patient location during evaluation: PACU Patient participation: complete - patient participated Level of consciousness: fully awake Pain management: adequate Airway patency: adequate Evidence of recall: no Cardiovascular status: acceptable Respiratory status: acceptable Hydration status: acceptable Pt is: normothermic Nausea/Vomiting status: none No complications documented. C JOURNALIST * Anesthesia Procedure Notes - Ale Sheridan CRNA - 02/24/2021 3:37 PM MUSIC JOURNALIST Associated Order(s): Airway Airway Patient location: OR Urgency: elective Date/time: 02/24/2021 3:27 PM Indications for airway management: anesthesia Difficult airway: no Staff: Supervising provider: Bernarda Stephenson MD Placed by: DIRECT MARKETING REPRESENTATIVE: Ale Sheridan CRNA Emergent airway documentation: Risks and benefits discussed: yes Consent obtained: yes Consent given by: patient Airway prep: Preoxygenated: yes Patient position: sniffing Mask difficulty assessment: 0 - not attempted Spontaneous ventilation during airway: absent Sedation level during airway: deep Final airway details: Final airway type: supraglottic airway Final supraglottic airway: classic SGA size: 4 Number of attempts: 1 C JOURNALIST * Anesthesia Preprocedure Evaluation - Bernarda Stephenson MD - 02/24/2021 1:40 PM CST Images from the original note were not included. Anesthesia Evaluation Peg Son is a 70 y.o. female Procedure(s): LEFT UPPER EXTREMITY ARTERIOVENOUS FISTULA CREATION Pre-Op Diagnosis Codes: * End stage renal disease (CMS/HCC) (HCC) [N18.6] HISTORY Past Medical History Neurological + Neuromuscular disease Cardiovascular + Hypertension Respiratory + COPD Hepatic / Heme + Liver disease Gastrointestinal + GERD Renal / + Renal disease + Dialysis Musculoskeletal/Pain + Osteoarthritis Endocrine / Other + Thyroid disease + Obesity (BMI >30) + Rheumatological disease Patient Active Problem List Diagnosis ??? Cervicalgia ??? Thyroid activity decreased ??? Anaclitic depression ??? Osteoarthritis of cervical spine ??? Degeneration of intervertebral disc of cervical region ??? Osteoarthritis of lumbar spine ??? Postlaminectomy syndrome of cervical region ??? Postlaminectomy syndrome of lumbar region ??? Hepatic cirrhosis (CMS/HCC) (HCC) ??? Fibromyalgia ??? Lumbago ??? Generalized osteoarthritis ??? Chronic pain ??? Chronic kidney disease, stage V (CMS/HCC) (HCC) ??? Other hyperlipidemia ??? End stage renal disease (CMS/HCC) (HCC) ??? Other chest pain ??? PIERRE (dyspnea on exertion) ??? Preop cardiovascular exam Past Medical History: Diagnosis Date ??? Chronic kidney disease stage 4 ??? COPD (chronic obstructive pulmonary disease) (CMS/HCC) (HCC) ??? Depression ??? Dry skin ??? Food intolerance PEANUTS ??? GERD (gastroesophageal reflux disease) ??? Headache ??? History of chest pain 12/2020 Previous surgery cancelled R/T possible CP. Real Estate Processor ruled out heart disease, testing negative. ??? [...] SPINAL FUSION Spinal Arthrodesis - (Added by AMINA Conv) ??? VAGINAL DELIVERY x2 OB History No obstetric history on file. Allergies Allergen Reactions ??? Sulfa (Sulfonamide Antibiotics) Hives Reaction: Hives, ??? Aspirin Swelling Reaction: Swelling, ??? Peanut Unknown Med List Status: Nurse Complete Set By: Eduarda Terry RN at 02/22/2021 12:32 PM Taking? Last Dose Start Date End Date Provider calcitRIOL (ROCALTROL) 0.25 mcg capsule Past Week 08/30/20 -- Sundar Godinez MD cholecalciferol (VITAMIN D-3) 2000 unit tablet Past Week -- -- Sundar Godinez MD DULoxetine DR (CYMBALTA) 60 mg capsule 02/23/2021 11/11/20 -- ProviderSundar MD fexofenadine (DEVAUGHN) 180 mg tablet 02/23/2021 -- -- Sundar Godinez MD furosemide (LASIX) 40 mg tablet 02/23/2021 -- -- Sundar Godinez MD HYDROcodone-acetaminophen (NORCO) 5-325 mg per tablet 02/24/2021 -- -- Sundar Godinez MD levothyroxine (Synthroid) 200 mcg tablet 02/24/2021 -- -- Sundar Godinez MD multivitamin with minerals tablet Past Week -- -- Sundar Godinez MD pregabalin (LYRICA) 200 mg capsule 02/24/2021 01/24/21 -- Sundar Godinez MD primidone (MYSOLINE) 50 mg tablet 02/23/2021 12/27/20 -- Sundar Godinez MD propranoloL (INDERAL) 60 mg tablet 02/24/2021 -- -- Sundar Godinez MD rosuvastatin (Crestor) 10 mg tablet 02/23/2021 -- -- Sundar Godinez MD spironolactone (ALDACTONE) 50 mg tablet -- -- Sundar Godinez MD Current Facility-Administered Medications: ??? ceFAZolin (ANCEF) 1 gram/10 mL in sterile water (premix) 3,000 mg, 3,000 mg, intravenous, Once ??? lidocaine (XYLOCAINE) 10 mg/mL (1 %) injection 2-10 mg, 0.2-1 mL, other, Once PRN ??? sodium chloride 0.9% flush 0.5-20 mL, 0.5-20 mL, intra-catheter, PRN ??? sodium chloride 0.9% infusion, 30 mL/hr, intravenous, Continuous, Last Rate: 30 mL/hr at 02/24/21 1236, 30 mL/hr at 02/24/21 1236 Social History Tobacco Use Smoking Status Former Smoker ??? Packs/day: 2.00 ??? Years: 40.00 ??? Pack years: 80.00 ??? Types: Cigarettes ??? Quit date: 2015 ??? Years since quittin.9 Smokeless Tobacco Never Used Substance and Sexual Activity Alcohol Use Not on file Substance and Sexual Activity Drug Use Never Family History Problem Relation Age of Onset ??? Pneumonia Mother ??? Cancer Father ??? Cancer Sister ??? Heart attack Brother Vitals: 02/24/21 1236 02/24/21 1248 BP: 148/70 Pulse: 71 71 Resp: 18 Temp: 37.1 ??C (98.8 ??F) 37.1 ??C (98.8 ??F) SpO2: 96% PT: 02/24/2021: 13.0 sec INR: 02/24/2021: 1.0 APTT: 02/24/2021: 35 sec Hgb A1C: No results found for requested labs within last 720 hours. CBC RBC: 02/24/2021: 4.61 M/cumm RDW: No results found for requested labs within last 720 hours. MCHC: 02/24/2021: 32.0 g/dL (L) MCH: 02/24/2021: 31.0 pg MCV: 02/24/2021: 97.0 fL (H) Hct: 02/24/2021: 44.7 % Hgb: 02/24/2021: 14.3 g/dL WBC: 02/24/2021: 6.9 K/cumm MPV: 02/24/2021: 10.7 fL Platelets: 02/24/2021: 159 K/cumm RDW CV: 02/24/2021: 14.1 % RDW Sd: 02/24/2021: 49.7 fL (H) BMP Glucose: 02/24/2021: 84 mg/dL Calcium: 02/24/2021: 9.6 mg/dL Sodium: 02/24/2021: 138 mmol/L Potassium: 02/24/2021: 4.3 mmol/L CO2: 02/24/2021: 33 mmol/L (H) Chloride: 02/24/2021: 98 mmol/L BUN: 02/24/2021: 32 mg/dL (H) Creatinine: 02/24/2021: 2.40 mg/dL (H) STOP-Bang Total Score: 6 DOS Physical Exam Medical history, medications, and allergies reviewed. Attestation: This PAT evaluation 02/24/2021. Airway Exam: Mallampati: II Cervical ROM: FROM TM distance: normal Cardiovascular Exam: Rate: regular Rhythm: regular Pulmonary Exam: LCTA, bilat EENT Exam: trachea midline Dental Exam: Upper dentures Current state: Patient's current state is cooperative. Anesthesia Plan ASA 4 My patient is approved for the Anesthesia Controlled Medication protocol when under care of a DIRECT MARKETING REPRESENTATIVE Planned anesthesia: General Induction: Induction: intravenous. Postoperative Plan: Postoperative administration opioids intended. Informed Consent: Discussed plan with DIRECT MARKETING REPRESENTATIVE. Anesthesia plan and risks discussed with patient. Consent and Attending signature: I and/or my designee have discussed the anesthesia plan, benefits, possible alternatives, parental presence at time of induction (if indicated), and clinically relevant risks that may include dental injury, unintentional awareness, and/or other complications. The patient and/or parent/legal guardian understand, and agree to proceed. All questions answered. C JOURNALIST documented in this encounter Plan of Treatment Not on file documented as of this encounter Procedures Procedure Name Priority Date/Time Associated Diagnosis Comments SC AN PROCEDURE PLACEHOLDER Routine 02/24/2021 3:27 PM MUSIC JOURNALIST SC AN ELECTIVE SUPRAGLOTTIC AIRWAY Routine 02/24/2021 3:27 PM MUSIC JOURNALIST documented in this encounter Results * SC AN ELECTIVE SUPRAGLOTTIC AIRWAY, SC AN PROCEDURE PLACEHOLDER (02/24/2021 3:27 PM MUSIC JOURNALIST) Narrative Ale Sheridan CRNA - 02/24/2021 3:27 PM MUSIC JOURNALIST Ale Sheridan CRNA ? 02/24/2021 ??3:38 PM Airway Patient location: OR Urgency: elective Date/time: 02/24/2021 3:27 PM Indications for airway management: anesthesia Difficult airway: no Staff: Supervising provider: Bernarda Stephenson MD Placed by: DIRECT MARKETING REPRESENTATIVE: Ale Sheridan CRNA Emergent airway documentation: Risks and benefits discussed: yes Consent obtained: yes Consent given by: patient Airway prep: Preoxygenated: yes Patient position: sniffing Mask difficulty assessment: 0 - not attempted Spontaneous ventilation during airway: absent Sedation level during airway: deep Final airway details: Final airway type: supraglottic airway Final supraglottic airway: classic SGA size: 4 Number of attempts: 1 Bernarda Stephenson MD ANESTHESIA ORDERABLES Fin al Result documented in this encounter Visit Diagnoses Not on filedocumented in this encounter Administered Medications Inactive Administered Medications - up to 3 most recent administrations Medication Order MAR Action Action Date Dose Rate Site ceFAZolin (ANCEF) 1 gram/10 mL in sterile water (premix) 3,000 mg 3,000 mg, intravenous, at 600 mL/hr, Administer over 3 Minutes, Once, On Bernarda 02/24/21 at 1300, For 1 dose, Pre-Op, Administer within 60 minutes of incision., Indications: Prophylaxis, SurgicalIndications:Prophylaxis, Surgical Given 02/24/2021 3:30 PM MUSIC JOURNALIST 3,000 mg dexAMETHasone (DECADRON) 4 mg/mL injection intravenous, Administer over 2 Minutes, As needed, Starting on Bernarda 02/24/21 at 1526, Anesthesia Intra-op Given 02/24/2021 3:26 PM MUSIC JOURNALIST 8 mg fentaNYL (SUBLIMAZE) preservative free injection intravenous, As needed, Starting on Bernarda 02/24/21 at 1537, Anesthesia Intra-op Given 02/24/2021 4:11 PM MUSIC JOURNALIST 25 mcg Given 02/24/2021 4:09 PM MUSIC JOURNALIST 25 mcg Given 02/24/2021 3:37 PM MUSIC JOURNALIST 50 mcg glycopyrrolate (ROBINUL) injection intravenous, Administer over 1 Minutes, As needed, Starting on Bernarda 02/24/21 at 1541, Anesthesia Intra-op Given 02/24/2021 3:41 PM MUSIC JOURNALIST 0.3 mg lidocaine (cardiac) (XYLOCAINE) preservative free injection intravenous, As needed, Starting on Bernarda 02/24/21 at 1526, Anesthesia Intra-op, Indications: Ventricular ArrhythmiasIndications:Ventr icular Arrhythmias Given 02/24/2021 3:26 PM MUSIC JOURNALIST 60 mg ondansetron (ZOFRAN) injection intravenous, Administer over 2 Minutes, As needed, Starting on Bernarda 02/24/21 at 1611, Anesthesia Intra-op Given 02/24/2021 4:11 PM MUSIC JOURNALIST 4 mg phenylephrine (MAIDA-SYNEPHRINE) 1 mg/10 mL (100 mcg/mL) in sodium chloride 0.9% (premix) intravenous, As needed, Starting on Bernarda 02/24/21 at 1530, Anesthesia Intra-op Given 02/24/2021 3:30 PM MUSIC JOURNALIST 8 mcg phenylephrine (MAIDA-SYNEPHRINE) 25,000 mcg in sodium chloride 0.9% 250 mL (100 mcg/mL) infusion intravenous, Continuous PRN, Starting on Bernarda 02/24/21 at 1533, Anesthesia Intra-op New Bag 02/24/2021 3:33 PM MUSIC JOURNALIST 0.2 mcg/kg/min 16.332 mL/hr propofoL (DIPRIVAN) 10 mg/mL IV intravenous, As needed, Starting on Bernarda 02/24/21 at 1526, Anesthesia Intra-op Given 02/24/2021 3:26 PM MUSIC JOURNALIST 120 mg sodium chloride 0.9% infusion 30 mL/hr, intravenous, Continuous, Starting on Bernarda 02/24/21 at 1300, On hold since Sun02/25/2021 at 0855 until manually unheld New Bag 02/24/2021 11:48 PM MUSIC JOURNALIST 30 mL/hr 30 mL/hr Rate/Dose Verify 02/24/2021 3:19 PM MUSIC JOURNALIST 30 mL/h r New Bag 02/24/2021 12:36 PM MUSIC JOURNALIST 30 mL/hr 30 mL/hr documented in this encounter Care Teams Line Builder Relationship Specialty Start Date End Date Guadencio Miranda MD [address] [place] [address] PCP - General 07/25/16 Herebrth Rodgers MD [address] [place] [address] [address] Surgeon Surgery 02/24/21 documented as of this encounter
--- OUTSIDE RECORDS SUMMARY | 2024-03-07 14:13 | XMS_ITS | Encounter Summary ---
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
--- OUTSIDE RECORDS SUMMARY | 2024-03-07 14:13 | XMS_ITS | Encounter Summary ---
Author Organization [facility] Healthcare Address [address] [place] [address] Care Team Providers Care Bolter Helper Name Role Phone Gaudencio Miranda MD Primary Care Provider [phone] Encounter Details Date Type Department Care Team (Late st Contact Info) Description 12/30/2020 11:59 PM CDT Anesthesia Event [address] [address] Keren Penaloza MD [address] [place] [address] [address] Yariel Claros MD [address] [place] [id number] Anesthesia Record Procedure Summary Procedure Name Responsible Anesthesiologist Anesthesia Start Time Anesthesia Stop Time LEFT UPPER EXTREMITY ARTERIOVENOUS FISTULA CREATION (canceled) Events No events on file. Meds * Agents No agents on file. * Blood No blood administrations on file. Lines, Drains, and Airways No LDAs on file. 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 Anesthesia Evaluation Peg Son is a 70 y.o. female Procedure(s): LEFT UPPER EXTREMITY ARTERIOVENOUS FISTULA CREATION Pre-Op Diagnosis Codes: * End stage renal disease (CMS/HCC) (HCC) [N18.6] Notes some left sided chest pain low in her chest, under her breast. Has had it for an extended period of time - deep pain, unable to define. Sometimes gets it at rest. Sometimes gets it after meals,sometimes not. METS <4 Patient reports that she had discussed it with her retail maintenance technician a year ortwo ago and that the tests had been negative. HISTORY Past Medical History Neurological + Neuromuscular disease Cardiovascular + Hypertension Hepatic / Heme + Liver disease Gastrointestinal + GERD Renal / + Renal disease Endocrine / Other + Thyroid disease + Obesity (BMI >30)- morbid obesity (BMI>40). + Rheumatological disease + Infectious disease Patient Active Problem List Diagnosis ??? [...] ??? End stage renal disease (CMS/HCC) (HCC) Past Medical History: Diagnosis Date ??? Chronic [...] chronic obstructive lung disease - (Added by Conv) ??? Wears partial dentures ?UPPER AND LOWER PER DAUGHTER Past Surgical History: Procedure Laterality Date ??? EYE SURGERY CATARACTS ??? NECK SURGERY Neck Surgery - (Added by TW Conv) ??? SPINAL FUSION Spinal Arthrodesis - (Added by Conv) OB History No obstetric history on file. Allergies Allergen Reactions ??? Sulfa (Sulfonamide Antibiotics) Hives Reaction: Hives, ??? Aspirin Swelling Reaction: Swelling, Med List Status: Nurse Complete Set By: Ar Lemus RN at 12/27/2020 9:59 AM Status Comment 12/27/2020 10:02 AM VERIFIED WITH DAUGHTER Taking? Last Dose Start Date End Date Provider calcitRIOL (ROCALTROL) 0.25 mcg capsule 08/30/20 -- Provider, MD Sundar cholecalciferol (VITAMIN D-3) 2000 unit tablet -- -- Provider, HistoricalMD DULoxetine DR (CYMBALTA) 60 mg capsule 11/11/20 -- Provider, MD Sundar fexofenadine (DEVAUGHN) 180 mg tablet -- -- Provider, MD Sundar furosemide (LASIX) 40 mg tablet -- -- Provider, MD Sundar HYDROcodone-acetaminophen (NORCO) 5-325 mg per tablet -- -- Provider, MD Sundar levothyroxine (Synthroid) 125 mcg tablet -- -- Provider, MD Sundar multivitamin with minerals tablet -- -- Provider, MD Sundar pregabalin (Lyrica) 100 mg capsule -- -- Provider, MD Sundar propranoloL (INDERAL) 60 mg tablet -- -- Provider, MD Sundar rosuvastatin (Crestor) 10 mg tablet -- -- Provider, MD Sundar spironolactone (ALDACTONE) 50 mg tablet -- -- Provider, MD Sundar Flag for Review Taking? Last Dose Start Date End Date Provider alendronate (FOSAMAX) 70 mg tablet 09/28/20 -- Provider, MD Sundar sertraline (ZOLOFT) 100 mg tablet -- -- Provider, MD Sundar topiramate (TOPAMAX) 50 mg tablet 06/28/16 -- Provider, MD Sundar Current Facility-Administered Medications: ??? acetaminophen (TYLENOL) tablet 975 mg, 975 mg, oral, Once ??? ceFAZolin (ANCEF) 1 gram/10 mL in sterile water (premix) 3,000 mg, 3,000 mg, intravenous, Once ??? famotidine (PEPCID) tablet 20 mg, 20 mg, oral, Once ??? sodium chloride 0.9% flush 0.5-20 mL, 0.5-20 mL, intra-catheter, PRN ??? sodium chloride 0.9% infusion, 30 mL/hr, intravenous, Continuous Social History Tobacco Use Smoking Status Former Smoker ??? Types: Cigarettes ??? Quit date: 2015 ??? Years since quittin.7 Substance and Sexual Activity Alcohol Use Not on file Substance and Sexual Activity Drug Use Never Family History Family history unknown: Yes There were no vitals filed for this visit. PT: No results found for requested labs within last 720 hours. INR: No results found for requested labs within last 720 hours. APTT: No results found for requested labs within last 720 hours. Hgb A1C: No results found for requested labs within last 720 hours. CBC RBC: No results found for requested labs within last 720 hours. RDW: No results found for requested labs within last 720 hours. MCHC: No results found for requested labs within last 720 hours. MCH: No results found for requested labs within last 720 hours. MCV: No results found for requested labs within last 720 hours. Hct: No results found for requested labs within last 720 hours. Hgb: No results found for requested labs within last 720 hours. WBC: No results found for requested labs within last 720 hours. MPV: No results found for requested labs within last 720 hours. Platelets: No results found for requested labs within last 720 hours. RDW CV: No results found for requested labs within last 720 hours. RDW Sd: No results found for requested labs within last 720 hours. BMP Glucose: No results found for requested labs within last 720 hours. Calcium: No results found for requested labs within last 720 hours. Sodium: No results found for requested labs within last 720 hours. Potassium: No results found for requested labs within last 720 hours. CO2: No results found for requested labs within last 720 hours. Chloride: No results found for requested labs within last 720 hours. BUN: No results found for requested labs within last 720 hours. Creatinine: No results found for requested labs within last 720 hours. STOP-Bang Total Score: 4 DOS Physical Exam Medical history, medications, and allergies reviewed. Attestation: This PAT evaluation 12/30/2020. Airway Exam: Mallampati: II Cervical ROM: FROM Cardiovascular Exam: Rate: regular Rhythm: regular Pulmonary Exam: LCTA, bilat EENT Exam: trachea midline Current state: Patient's current state is cooperative. Anesthesia Plan ASA 3 My patient is approved for the Anesthesia Controlled Medication protocol when under care of a [employer] DRIVER Planned anesthesia: General Informed Consent: Anesthesia plan and risks discussed with patient. Consent and Attending signature: I and/or my designee have discussed the anesthesia plan, benefits, possible alternatives, parental presence at time of induction (if indicated), and clinically relevant risks that may include dental injury, unintentional awareness, and/or other complications. The patient and/or parent/legal guardian understand, and agree to proceed. All questions answered. documented in this encounter Plan of Treatment Not on file documented as of this encounter Visit Diagnoses Not on filedocumented in this encounter Care Teams Bolter Helper Relationship Specialty Start Date End Date Gaudencio Miranda MD [address] [place] [id number] PCP - General 07/25/16 documented as of this encounter
--- OUTSIDE RECORDS SUMMARY | 2024-03-07 14:13 | XMS_ITS | Encounter Summary ---
Author Organization [facility] Address [address] [place] [address] Care Team Providers Care Healthcare Project Manager Name Role Phone Gaudencio Miranda MD Primary Care Provider Encounter Details Date Type Department Care Team (Late st Contact Info) Description 12/24/2020 Orders Only [facility] Vascular and Vein Surgery [address] [place] [address] Eduarda Ocasio RN Pre-op testing (Primary Dx) Social History Tobacco Use Types Packs/Day Years Used Date Smoking Tobacco: Former Comments Unknown Sex and Gender Information Value Date Recorded Sex Assigned at Not on file 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
--- OUTSIDE RECORDS SUMMARY | 2024-03-07 14:13 | XMS_ITS | Encounter Summary ---
Author Organization [facility] Address [address] [place] [address] Care Team Providers Care Area Coordinator Name Role Phone Gaudencio Miranda MD Primary Care Provider [phone] Encounter Details Date Type Department Care Team (Late st Contact Info) Description 02/08/2021 Telephone [facility] Cardiology [address] [facility] [address] [[email or web address] [place] [address] Ed Peña MD [address] [place] [address] Social History Tobacco Use Types Packs/Day Years [...] on file Legal 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 She appreciated the assistance. DIPPER documented in this encounter Plan of Treatment Not on file documented as of this encounter Visit Diagnoses Not on filedocumented in this encounter Care Teams Area Coordinator Relationship Specialty Start Date End Date Gaudencio Miranda MD [address] [place] [id number] PCP - General 07/25/16 documented as of this encounter
--- OUTSIDE RECORDS SUMMARY | 2024-03-07 14:13 | XMS_ITS | Encounter Summary ---
Author Organization [facility] Address [address] [place] [address] Care Team Providers Care Automatic Machine Attendant Name Role Phone Gaudencio Miranda MD Primary Care Provider [phone] Encounter Details Date Type Department Care Team (Late st Contact Info) Description 12/31/2020 Telephone [facility] Vascular and Vein Surgery [address] [place] [address] Herberth Rodgers MD [address] [facility] [address] [place], [place] [id number] Social History Tobacco Use Types Packs/Day Years [...] on file Legal Sex Female 12:59 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 Pt r/s for procedure on 02/24. Pt daughter notified. CLEANER * Telephone Encounter - Eduarda Ocasio RN - 01/26/2021 2:48 PM CST Pt scheduled for Echo with Dr. Bourne on 02/07. At that point we will know if pt cleared for surgery. CLEANER * Telephone Encounter - Aditi Bran - 01/03/2021 8:48 AM CDT Thank You * Telephone Encounter - Eduarda Ocasio RN - 12/31/2020 10:07 AM CDT Pt surgery was cx yesterday due to pt c/o intermittent chest discomfort. Dr. Rodgers wants her to get cardiac clearance before he does this procedure. Pt requesting to be seen with her husbands group account director, Dr. Mariana Arce in [place]. Called them to get her an appointment. They said they could get her in on 01/17, but they need a referral before they can schedule her. Referral sent over today. They will be reaching out to pt daughterArin to schedule. I also put on the referral thatit would be preferred if she had appointment before the end of the month and requested cardiac clearance. * Telephone Encounter - Aditi Bran - 12/31/2020 9:12 AM CDT Call Ms Son's daughter Arin with f/u information for rescheduling surgery with Dr Rodgers. She can be reached @ [phone] documented in this encounter Plan of Treatment Not on file documented as of this encounter Visit Diagnoses Not on filedocumented in this encounter Care Teams Automatic Machine Attendant Relationship Specialty Start Date End Date Gaudencio Miranda MD [address] [place] [address] PCP - General 07/25/16 documented as of this encounter
--- OUTSIDE RECORDS SUMMARY | 2024-03-07 14:13 | XMS_ITS | Encounter Summary ---
Author Organization [facility] Medical Group Address [address] [place] [address] Care Team Providers Care Automatic Beading Lathe Operator Name Role Phone Gaudencio Miranda MD Primary Care Provider [phone] Encounter Details Date Type Department Care Team (Late st Contact Info) Description 12/24/2020 Documentation [facility] Medical [facility] Vascular and Vein Surgery [address] [place] [address] Eduarda Ocasio RN Social History Tobacco Use Types Packs/Day Years Used Date Smoking Tobacco: Former Comments Unknown Sex and Gender Information Value Date Recorded Sex Assigned at Not on file Legal Sex Female 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 Ref# [id number] per [employer] Medicare documented in this encounter Plan of Treatment Not on file documented as of this encounter Visit Diagnoses Not on filedocumented in this encounter Care Teams Automatic Beading Lathe Operator Relationship Specialty Start Date End Date Gaudencio Miranda MD [address] [place] [address] PCP - General 07/25/16 documented as of this encounter
--- OUTSIDE RECORDS SUMMARY | 2024-03-07 14:13 | XMS_ITS | Encounter Summary ---
Author Organization [facility] Healthcare Address [address] [place] [address] Care Team Providers Care Manager Sustainability Name Role Phone Miscellaneous, Not In File Primary Care Provider Unavailable Encounter Details Date Type Department Care Team (Latest Contact Info) Description 06/28/2016 4:42 PM CDT - 06/28/2016 11:59 PM CDT Hospital Encounter [facility] OP INTERIM [phone] David Gentile MD [address] [place] [address] Discharge Disposition: Discharge to home or self care Social History Tobacco Use Types Packs/Day Years Used Date Smoking Tobacco: Former Comments Unknown Sex and Gender Information Value Date Recorded Sex Assigned at Not on file Legal Sex Female 12:59 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 FINAL REPORT ACC# ??Date Time ??Exam [id number] Jun 28, 2016 17:07:00 [id number] Spine Lumbar 2 or 3 views EXAMINATION: ?Spine lumbar 2 or 3 views HISTORY: ??Back pain; lumbar spondylosis FINDINGS: ?? Upright AP and lateral views the lumbar spine are obtained on 3 exposures. There are no prior studies available for comparison. There is transitional lumbosacral anatomy. For discussion purposes, L5 will be considered sacralized bilaterally. There has been prior anterior discectomy, anterior instrumented fusion and interbody fusion at L4-L5. Vertebral body heights are intact. Right convex curvature of the lumbar column is present. There is no listhesis. There is mild degenerative disc disease at the noninstrumented lumbar levels. Atherosclerosis is present. IMPRESSION: ?? Prior anterior discectomy, anterior instrumented fusion and interbody fusion at L4-L5 with mild degenerative disc disease at the noninstrumented lumbar levels. Requested By: DAVID GENTILE ??M.D. ? Dictated By: ?? DELMY MONROY M.D. ??on Jun 29 2016 ??6:35A This document has been electronically signed by: DELMY MONROY M.D. on Jun 29 2016 ??6:35A [id number] Procedure Note Miscellaneous, Notinfile / Provider, MD Sundar - 08/11/2016 DELMY MONROY M.D. FINAL REPORT ACC# Date Time Exam [id number] Jun 28, 2016 17:07:00 [id number] Spine Lumbar 2 or 3 views EXAMINATION: Spine lumbar 2 or 3 views HISTORY: Back pain; lumbar spondylosis FINDINGS: Upright AP and lateral views the lumbar spine are obtained on 3 exposures. There are no prior studies available for comparison. There is transitional lumbosacral anatomy. For discussion purposes, L5 will be considered sacralized bilaterally. There has been prior anterior discectomy, anterior instrumented fusion and interbody fusion at L4-L5. Vertebral body heights are intact. Right convex curvature of the lumbar column is present. There is no listhesis. There is mild degenerative disc disease at the noninstrumented lumbar levels. Atherosclerosis ispresent. IMPRESSION: Prior anterior discectomy, anterior instrumented fusion and interbody fusion at L4-L5 with mild degenerative disc disease at the noninstrumented lumbar levels. Requested By: DAVID GENTILE M.D. Dictated By: DELMY MONROY M.D. on Jun 29 2016 6:35A This document has been electronically signed by: DELMY MONROY M.D. on Jun 29 2016 6:35A [id number] us Not In File Miscellaneous IMG XR PROCEDURES Destiney l Result documented in this encounter Visit Diagnoses Not on filedocumented in this encounter Care Teams Manager Sustainability Relationship Specialty Start Date End Date Miscellaneous, Not In File PCP - General 06/28/16 7 documented as of this encounter
--- OUTSIDE RECORDS SUMMARY | 2024-03-07 14:13 | XMS_ITS | Encounter Summary ---
Author Organization [facility] Healthcare Address [address] [place] [address] Care Team Providers Care Medical Consultant Name Role Phone Gaudencio Miranda MD Primary Care Provider [phone] Herberth Rodgers MD Unavailable [phone] Reason for Visit * Auth/Cert Specialty Diagnoses / Procedures Referred By Contmarilee t Referred To Contact Diagnoses End stage renal disease (CMS/HCC) (HCC) End stage renal disease (CMS/HCC) (HCC) [N18.6] Procedures CA CREAT AV FISTULA,AUTOGENOUS GRAFT CA CREAT AV FISTULA,NON-AUTOGENOUS GRAFT LEFT UPPER EXTREMITY ARTERIOVENOUS FISTULA CREATION Referral ID Status Reason Start Date Expiration Date Visits Re quested Visits Authorized [id number] 1 1 Encounter Details Date Type Department Care Team (Latest Contact Info) Description 02/24/2021 10:49 AM TELEVISION TECHNICIAN - 02/27/2021 7:59 PM TELEVISION TECHNICIAN Hospital Encounter [id number] [place] [address] Herberth Rodgers MD [address] [facility] [address] [id number] Kiera Quintana MD [address] [facility] [place] [address] [place] [address] [place] [address] [place] [address] Hypoxia (Primary Dx); Acute respiratory failure with hypoxia (CMS/HCC) (HCC) Discharge Disposition: Discharge to home [...] on file Legal Sex Female 12:59 AM TELEVISION TECHNICIAN Gender Identity Not on file Sexual Orientation Not on file documented as of this encounter Last Filed Vital Signs Vital Sign Reading Time Taken Comments Blood Pressure 124/76 02/27/2021 5:00 PM TELEVISION TECHNICIAN Pulse 63 02/27/2021 5:00 PM TELEVISION TECHNICIAN Temperature 36.7 ??C (98 ??F) 02/27/2021 5:00 PM TELEVISION TECHNICIAN Respiratory Rate 16 02/27/2021 5:00 PM TELEVISION TECHNICIAN Oxygen Saturation 94% 02/27/2021 5:00 PM TELEVISION TECHNICIAN Inhaled Oxygen Concentration - - Weight 136 kg (299 lb 13.2 oz) 02/25/2021 11:45 AM TELEVISION TECHNICIAN Height 172 cm (5' 7.72 ) 02/25/2021 11:45 AM TELEVISION TECHNICIAN Body Mass Index 45.97 02/25/2021 11:45 AM TELEVISION TECHNICIAN documented in this encounter Discharge Summaries * Cece Veras MD - 02/27/2021 7:59 PM CST Images from the original note were not included. Hospitalist Discharge Summary Patient Name: Peg Son / 70 y.o. / female : 1950 PCP: Gaudencio Miranda MD Date of Admit: 02/24/2021 Date of DC : 02/27/2021 Admitting Dx: Acute respiratory failure with hypoxia (CMS/HCC) (HCC) DISCHARGE DIAGNOSES: Principal Problem: Acute respiratory failure with hypoxia (CMS/HCC) (HCC) Active Problems: Fibromyalgia Other hyperlipidemia End stage renal disease (CMS/HCC) (HCC) Hypoxia Resolved Problems: No resolved hospital problems. PROCEDURES: 1. Creation of left brachiocephalic AV fistula 2. Ligation and division large left cephalic vein AV fistula tributary ?? CONSULTANTS: IP CONSULT TO HOSPITALIST IP CONSULT TO VASCULAR SURGERY IP CONSULT TO PULMONOLOGY Hospital Course: Peg Son is a 70 y.o. 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 In post-op period, pt desatted to 73 on RA, put on 3L, increased saturation to 97%. ABG showed hypoxemia with CO2 retention CO2 65. CT chest w/o contrast showed RLL lesion fibrosis vs possible malignancy, and small bilateralnodules. VQ scan low probability of PE, bilateral LE doppler negative for DVT. Pt did have fluid post op. Pt reports presume she has COPD hx with 80pkyr smoking hx, however not on any inhalers, does not think have had PFTs either. Labs showed mild hyperkalemia as well K 5.1 Spironolactone was held on admission. Echocardiogram showed G1DD, EF60%, normal atrial septum. She denies change in diet, reporting that she has been voiding less compared to before. Pulmonology was consulted, pt was startedon bronchodilators, symbicort and duoneb, and azithromycin. IV lasix given to help diurese with good UOP. Pt is morbidly obese, there is concern for FELISHA, OHS, restrictive lung disease as well. Pt wasstable on 1-2L NC, 6 min walk study showed 1L NC requirement at baseline and 2L with activity. Pt was discharged with supplemental O2 with clinic follow up with fulfillment representative for evaluation and management of Lung mass/fibrosis and hypoxia with multiple risk factors. Spironolactone discontinued at discharge given hyperkalemia, and BP while admitted did not require it. Consider resume at lower dose, give echo with diastolic HF. Lasix dose was increased from 60 to 80mg every day at discharge. I recommended following up with primary care within 1 week. Discharge Physical Exam: Weight: 136 kg (299 lb 13.2 oz) BP 124/76 (BP Location: Right arm) Pulse 63 Temp 36.7 ??C (98 ??F) (Oral) Resp 16 Ht 172 cm(5' 7.72 ) Wt 136 kg (299 lb 13.2 oz) SpO2 94% BMI 45.97 kg/m?? General: alert, cooperative, in NAD, 1L NC HEENT: unremarkable Lungs: clear, no rhonchi, wheezing CV: RRR, no murmurs, normal s1, s2 Abdomen: soft, non tender, BS+ve Skin: no rashes. Normal skin turgor Discharge medications and new prescriptions: Your medication list START taking these medications Instructions Last Dose Given Next Dose Due albuterol HFA 90 mcg/actuation inhaler Commonly known as: PROVENTIL HFA,VENTOLIN HFA,PROAIR HFA Inhale 2 puffs every 4 (four) hours as needed for wheezing fluticasone propion-salmeteroL 250-50 mcg/dose diskus inhaler Commonly known as: ADVAIR DISKUS Inhale 1 puff 2 (two) times a day Rinse mouth with water after use. Do not swallow. CHANGE how you take these medications Instructions Last Dose Given Next Dose Due furosemide 40 mg tablet Commonly known as: LASIX What changed: how much to take Take 1.5 tablets (60 mg total) by mouth nightly CONTINUE taking these medications Instructions Last Dose Given Next Dose Due calcitRIOL 0.25 mcg capsule Commonly known as: ROCALTROL cholecalciferol 2000 unit tablet Commonly known as: VITAMIN D-3 Crestor 10 mg tablet Generic drug: rosuvastatin DULoxetine DR 60 mg capsule Commonly known as: CYMBALTA fexofenadine 180 mg tablet Commonly known as: DEVAUGHN HYDROcodone-acetaminophen 5-325 mg per tablet Commonly known as: NORCO multivitamin with minerals tablet pregabalin 200 mg capsule Commonly known as: LYRICA primidone 50 mg tablet Commonly known as: MYSOLINE propranoloL 60 mg tablet Commonly known as: INDERAL Synthroid 200 mcg tablet Generic drug: levothyroxine STOP taking these medications spironolactone 50 mg tablet Commonly known as: ALDACTONE Where to Get Your Medications These medications were sent to [id number] - [place], [place] - [address] [facility] [address] [facility], [facility] [id number] ?? albuterol HFA 90 mcg/actuation inhaler ?? fluticasone propion-salmeteroL 250-50 mcg/dose diskus inhaler ?? furosemide 40 mg tablet Discharge Lab Data: Hematology Lab History Some values may be hidden. Unless noted otherwise, only the newest values recorded on each date aredisplayed. Labs - Hematology Latest Ref Range 02/24/21 02/25/21 02/26/21 02/27/21 WBC 3.8 - 9.9 K/cumm 6.9 8.3 6.1 5.9 Total Hb, POC 11.9 - 15.5 g/dL 14.3 14.8 13.0 13.3 Hct 35.6 - 45.5 % 44.7 46.7 (A) 42.1 42.4 Plt 150 - 400 K/cumm 159 205 144 (A) 156 Neutrophil abs 1.7 - 6.5 K/cumm 3.4 6.6 (A) 3.1 2.8 Lymphocytes, abs 0.8 - 3.3 K/cumm 2.3 1.3 2.1 2.0 (A) Abnormal value Chem/LFT Lab History Some values may be hidden. Unless noted otherwise, only the newest values recorded on each date aredisplayed. Labs-Chem/LFT Latest Ref Range 02/24/21 02/25/21 02/26/21 02/27/21 Sodium 135 - 145 mmol/L 138 140 142 138 Creatinine 0.60 - 1.10 mg/dL 2.40 (A) 2.40 (A) 2.90 (A) 2.50 (A) Bilirubin, total 0.1 - 1.2 mg/dL 0.3 0.3 0.3 AST 10 - 45 Units/L 23 27 25 ALT 7 - 45 Units/L 13 10 6 (A) CrCl- Actual Body Weight (Cockcroft-Gault) 45.5 45.5 37.6 43.7 (A) Abnormal value Outpatient Follow-Up: Future Appointments Date Time Provider Department Center 03/09/2021 11:00 AM Herberth Rodgers MD VASC BL[facility] 120 [facility] 08/01/2021 11:00 AM Stacy Peña MD MG [facility] Contact Information for Follow-ups Herberth Rodgers MD Specialty: Surgery, Vascular Surgery, General Surgery Relationship: Surgeon [address] [place] [address] [address] [facility] [address] Next Steps: Follow up Comments: Follow-up with Dr. Rodgers in office within 1-2 weeks. Please call for appointment. Questions: To provider: HERBERTH RODGERS Salik, MD Specialty: Pulmonary Disease, Internal Medicine, Critical Care Med [address] [place] [address] [address] [facility] [address] Next Steps: Schedule an appointment as soon as possible for a visit in 2 week(s) Gaudencio Miranda MD Specialty: Family Medicine, Internal Medicine Relationship: PCP - General [address] [place] [id number] Next Steps: Follow up in 1 week(s) Discharge Condition: good. Disposition: home. Patient instructions: Activity: activity as tolerated. Diet: Adult Discharge Diet Adult Diet Restricted; Renal Dialysis; 80 Grams (Pro); 1 Gram (Phos); 1 Gram (K+); 2 Grams (Na); 1500 mL Fluid Adult Discharge Diet Wound Care: keep wound clean and dry. Follow-up: Gaudencio Miranda MD Code Status At time of Discharge: Full Code More than 1 hour were spent in this discharge activity. Discharge instructions using teach back, understanding assessed and validated. Cece Veras MD 10:30 PM 02/27/2021 [facility] Hospitalist Group VISION TECHNICIAN documented in this encounter Discharge Instructions * Attachments The following attachments cannot be sent through Care Everywhere. * Arteriovenous Fistula Creation for Hemodialysis (Discharge Care) (Ethiopian) documented in this encounter Medications at Time of Discharge calcitRIOL (ROCALTROL) 0.25 mcg capsule Take 1 capsule (0.25 mcg total) by mouth every other day 08/30/2020 cholecalciferol (VITAMIN D-3) 2000 unit tablet [...] total) by mouth nightly 45 tablet 02/27/2021 HYDROcodone-acet aminophen (NORCO) 5-325 mg per tablet [...] 4 (four) hours as needed for wheezing 1 each 1 02/27/2021 03/09/2021 albuterol HFA (PROVENTIL HFA,VENTOLIN HFA,PROAIR HFA) 90 mcg/actuation inhaler 2 puffs every 4 (four) hours as needed 02/27/2021 05/03/2021 fluticasone propion-salmeter oL (ADVAIR DISKUS) 250-50 mcg/dose diskus inhaler Inhale 1 puff 2 (two) times a day Rinse mouth with water after use. Do not swallow. 1 each 1 02/27/2021 03/28/2021 documented as of this encounter Ordered Prescriptions Prescription Sig Dispense Quantity Refills Last Filled Start Date End Date furosemide (LASIX) 40 mg tablet Take 1.5 tablets (60 mg total) by mouth nightly 45 tablet 02/27/2021 fluticasone propion-salmeteroL (ADVAIR DISKUS) 250-50 mcg/dose diskus inhaler Inhale 1 puff 2 (two) times a day Rinse mouth with water after use. Do not swallow. 1 each 1 02/27/2021 2 albuterol HFA (PROVENTIL HFA,VENTOLIN HFA,PROAIR HFA) 90 mcg/actuation inhaler Inhale 2 puffs every 4 (four) hours as needed for wheezing 1 each 1 02/27/2021 1 documented in this encounter Discharge Disposition Disposition Code Departure Means Destination Discharge to home or self care documented in this encounter Progress Notes * Elizabeth Arnold MSW - 02/27/2021 4:28 PM CST Pt qualifies for 1L at rest and 2L with activity. SHOE FOLDER faxed clinical information to [facility]. [employer] to bring tank out after everything is received and benefits are verified. SHOE FOLDER was informed it could be later this evening before everything is verified. KAROL Hays 02/27/2021 4:30 PM VISION TECHNICIAN * Vance Turcios RRT - 02/27/2021 4:04 PM CST C227-01 6MW test Fall Risk: Yes Pt walked apx 60 feet, Pt complaining of knee pain Pt required 1L NC at rest and 2L NC w/ activity 02/27/21 1352 Resting Information Resting HR. 87 bpm Resting SPO2 88 % (Placed pt on 1L NC) Oxygen Setting 21 Delivery Device RA Ambulation Trials to Assess Desaturation to 88% Activity 1: Ambulated (feet) 30 feet Oxygen Setting #1 1L NC SPO2 (%) #1 88 % (Placed pt on 2L NC) Activity 2: Ambulated (feet) 30 feet Oxygen Setting #2 2L NC SPO2 (%) #2 90 % Post Ambulation Assessment HR Post Assessment 110 bpm RR Post Assessment 24 breaths/m Post Assessment Recommendation Pt required 1L NC at rest and 2L NC w/ activity $ Oximetry Multiple Yes VISION TECHNICIAN * Padmini Trinh MD - 02/27/2021 1:52 PM CST PULMONARY NOTE Visit Date: 02/27/21 Reason for consult/Chief Complaint: Hypoxia Interval history: Still on 1-2 L. Feels okay HPI: Patient is a 70 y.o. female w/ PMH ESRD, obesity, chart h/o COPD, HTN, cirrhosis, fibromyalgia, allergic rhinitis of who presented for AV fistula creation. Underwent surgery on 02/24. Postop note hypoxic so she was admitted. CT showed right lower lobe nodule/mass as well as some other small pulmonary nodules She does not have a formal diagnosis of FELISHA but she think she may have it based on her symptoms. Social History: 50 + pack year history, quit 2015. Denies any alcohol or drugs. No significant occupational exposures. OBJECTIVE: Physical Exam: Vitals: 02/27/21 0429 02/27/21 0728 02/27/21 0745 02/27/21 1058 BP: 131/79 116/67 115/73 BP Location: Left arm Right arm Right arm Pulse: 60 59 65 Resp: 20 18 14 Temp: 36.6 ??C (97.9 ??F) 36.4 ??C (97.5 ??F) 36.7 ??C (98 ??F) TempSrc: Oral Oral Oral SpO2: 93% 92% 94% 92% Weight: Height: Constitutional: In no acute distress, appears stated age, obese Integumentary: Warm, no new rash Head: Atraumatic, normocephalic Eyes: EOM's intact, no scleral icterus Ears, Nose, Mouth, and Throat: Ext. ears & nose normal Cardiovascular: RRR, no obvious friction rub Respiratory: Mostly clear, no wheezes Abdomen: Soft, nontender Musculoskeletal/Extremities: No Cyanosis or clubbing Neurological: No Aphasia, no new gross focal deficits Psychiatric: Alert, appropriate affect Data Review: BMP Lab Results Component Value Date GLUCOSE 112 02/27/2021 CALCIUM 9.0 02/27/2021 SODIUM 138 02/27/2021 POTASSIUM 4.0 02/27/2021 CO2 30 02/27/2021 BUNSER 40 (H) 02/27/2021 CREATININE 2.50 (H) 02/27/2021 CBC: Lab Results Component Value Date WBC 5.9 02/27/2021 RBC 4.30 02/27/2021 HGB 13.3 02/27/2021 HCT 42.4 02/27/2021 MCV 98.6 (H) 02/27/2021 MCH 30.9 02/27/2021 MCHC 31.4 (L) 02/27/2021 RDWCV 14.3 02/27/2021 RDWSD 51.8 (H) 02/27/2021 MPV 11.5 02/27/2021 NRBCABS 0.00 02/27/2021 ASSESSMENT 1. Acute respiratory failure with hypoxia o Acute vs chronic? Probably multifactorial, related to COPD, restriction/obese hypoventilation, pulmonary edema, atelectasis, etc 2. Acute r on chronic respiratory failure hypercapnia o Clinically Improved. Due to hypoventilation and COPD. o Based on ABG, baseline pCO2 is probably in the 50s 3. COPD o No PFTs available but has significant smoking history in symptoms. 4. Pulmonary nodules o Has a large right lower lobe opacity as well as some other smaller nodules. o This will need follow-up outpatient imaging 5. Seasonal Allergic rhinitis o 6. Probable restrictive lung disease and obesity hypoventilation o 7. Probable FELISHA 8. CKD 5/ESRD 9. Obesity 10. H/o tobacco abuse o 50 pack year history, quit in 2016 PLAN ??? Continue bronchodilators and nebulizers ??? Encourage incentive spirometry and aggressive pulmonary hygiene:PT/OT, get patient out of bed to chair, ambulate, ect.. ? ? Continue 1-2 L, titrate oxygen for goal SpO2 > 90% ??? Will benefit from outpatient sleep study ??? Continue Lasix, give an extra dose. Keep euvolemic ??? Try to minimize naracotics ??? DVT prophylaxis: Lovenox Obtain walk test. Should be okay to discharge from pulmonary standpoint. Will need home O2 arrangedmost likely prior to discharge. Can follow up with me in clinic Padmini Trinh MD There may be syntax/grammatical errors in this note due to the use of voice recognition software. VISION TECHNICIAN * Anne Gottlieb STEAM SHOVEL OPERATING ENGINEER - 02/27/2021 9:55 AM CST 02/27/21 0955 PT Last Visit Session Type Treatment PT Received On 02/27/21 Safe Environment Arm Band Checked Subjective Agreeable to Therapy Precautions Precautions Fall risk Weight Bearing Restrictions Yes RUE Weight Bearing Other (Comments) (less than 10 lb on left UE) Precaution Comments (02,tele) Activity Tolerance Endurance Tolerates less than 10 min activity with changes in vital signs Pain Assessment Pain Assessment 0-10 Pain Score 4 Cognition Arousal/Alertness Alert Static Standing Balance Static Standing-Level of Assistance Minimum assistance Static Standing-Comment/# of Minutes (pt able to stand - leaking urine to the floor unsafe to walk) Bed Mobility 1 Bed Mobility Type 1 To Transfer 1 Transfer From 1 Sit Transfer Type 1 To Transfer to 1 Stand Transfer Device 1 (straight cane) Trials/Comments 1 pt marched in standing Ambulation 1 Distance (ft) 1 (pt stood and leaked urine - unsafe to walk) Physical Therapy Educated the patient to the role of physical therapy, plan of care, goals of therapy, rationale forprogressing mobility Patient was left in chair with all needs met and equipment intact. Safety measures include orientedto call light and placed within reach. Mobility and ADL status posted at bedside and within medicalrecord. Multi-Disciplinary Problems (from Physical Therapy) Active Problems Problem: PT Mis Start Date: 02/25/21 Goal Start Date Expected End Date End Date PT [facility] 1 02/25/21 03/04/21 -- Goal Details: Will perform AAROM/AROM ex x B LE x 10 reps until indep - Goal Start Date Expected End Date End Date PT [facility] 2 02/25/21 03/04/21 -- Goal Details: Will transfer bed<>chair with wheeled walker and min assist of 1 and cues Goal Start Date Expected End Date End Date PT [facility] 3 02/25/21 03/04/21 -- Goal Details: Will amb 50 ft with wheeled walker and min assist of 1 and cues Pt progressing towards all goals VISION TECHNICIAN * Cece Veras MD - 02/27/2021 7:21 AM CST General Medicine Daily Progress SUBJECTIVE Chief complaint of creation of left arm AV fistula.. 70-year-old female with past medical history of hypertension, COPD, have heart failure preserved ejection fraction G1DD/EF 60%, CKD progressing to ESRD, hypothyroidism, osteoarthritis, morbid obesity, fibromyalgia, Patient noted to have saturation in the 80s prior to surgery per H&P however per nursing no lilly op sats was 96% on room air, decreased to 73 on room air postop, placed on 3 L satting 97%, consulted hospitalist for evaluation management. Interval History: ABG obtained showing hypoxia as well as CO2 retention CO2 [address] mild acidosis pH 7.32 CT chest without contrast obtained no formal read yet per my read right lower lobe focal consolidation with small pleural effusion, possible atelectasis as well Patient has been receiving postop IV fluid 30 mL/hour were hold this for now Net positive 2 L urine output not counted Currently on 3 L satting mid 90s% Mild hyperkalemia potassium 5.1 today will hold spironolactone this morning Deny long distance travel, hx of malignancy, hx of VTE, no steroid estrogen use, no imobility Reports COPD but not on any inhalers, does not think had PFTs Reports L leg more painful however maybe not when I press on L leg 80s on RA 90-91% 02/26/2021 On 2 L yesterday, wean to 1 L this morning V/Q done yesterday low probability, lower extremity Doppler no DVT Echo from January shows grade 1 diastolic dysfunction, EF 60%, normal atrial septum Started bronchodilators Potassium 4.3 from 5.1 yesterday, spironolactone was held, blood pressure within normal Messaged vascular surgeon regarding starting chemical DVT prophylaxis 02/27/2021 Wean to 1 L yesterday Per pulmonology, will require oxygen desaturation study prior to discharge okay to discharge on oxygen. Will need follow-up in pulmonology Clinic for lung nodule evaluation and respiratory issues.. 6 minutes walk study ordered Breathing feels back to normal, on 1L 89-92% at rest, suspect will need supplemental O2 Snores at night, does not feel refreshed after sleep, likely FELISHA OHS OBJECTIVE Vitals: 24hr Min/Max: Temp Min: 36.2 ??C (97.2 ??F) Max: 36.7 ??C (98.1 ??F) Pulse Min: 60 Max: 67 BP Min: 106/69 Max: 131/79 Resp Min: 16 Max: 20 SpO2 Min: 90 % Max: 96 % Most Recent : Vitals: 02/27/21 0429 BP: 131/79 Pulse: 60 Resp: 20 Temp: 36.6 ??C (97.9 ??F) SpO2: 93% I/O last 2 completed shifts: In: 240 [P.O.:240] Out: - No intake/output data recorded. Physical Exam: General Exam: In no acute distress Skin: Dry, Warm. ABSENT: Jaundice, Rash Head: Atraumatic, Normocephalic Ears, Nose, Mouth, Throat: Ext. ears & nose normal, Moist mucous membranes Neck: Supple Cardiovascular: Normal range, Regular rhythm, S1S2 normal. ABSENT: Edema Respiratory: Effort normal, good aeration though distant 2/2 body habitus. Overall good air movbement, no wheezing ABSENT: Crackles, Rhonchi Abdomen: Bowel sounds present, Soft. ABSENT: Mass, Tenderness, Distention Musculoskeletal/Extremities: Joints normal Neurological: Cranial nerves II-XII WNL. ABSENT: Gross deficits, Facial droop, Focal weakness, Tremors Psychiatric: Affect appropriate, Alert Psychiatric - Orientation: Oriented to: Time, Place, Person Lab/Current Medication Review: Recent Results (from the past 24 hour(s)) Comprehensive metabolic panel Collection Time: 02/27/21 4:40 AM Result Value Ref Range Sodium 138 135 - 145 mmol/L Potassium, pl 4.0 3.3 - 4.9 mmol/L Chloride 98 97 - 110 mmol/L CO2 30 22 - 32 mmol/L Anion gap 10 2 - 15 mmol/L BUN 40 (H) 8 - 25 mg/dL Creatinine 2.50 (H) 0.60 - 1.10 mg/dL Glucose 112 70 - 199 mg/dL Calcium 9.0 8.5 - 10.3 mg/dL Bilirubin, total 0.3 0.1 - 1.2 mg/dL Protein, pl 6.6 6.5 - 8.5 g/dL Albumin 3.7 3.5 - 5.0 g/dL Alk phos 86 40 - 130 Units/L ALT 6 (L) 7 - 45 Units/L AST 25 10 - 45 Units/L Magnesium Collection Time: 02/27/21 4:40 AM Result Value Ref Range Magnesium 2.1 1.4 - 2.5 mg/dL Phosphorus Collection Time: 02/27/21 4:40 AM Result Value Ref Range Phosphorus, pl 4.5 2.3 - 4.5 mg/dL CBC with auto differential Collection Time: 02/27/21 4:40 AM Result Value Ref Range WBC 5.9 3.8 - 9.9 K/cumm Hgb 13.3 11.9 - 15.5 g/dL Hct 42.4 35.6 - 45.5 % Plt 156 150 - 400 K/cumm MPV 11.5 9.1 - 12.3 fL RBC 4.30 3.90 - 5.20 M/cumm MCV 98.6 (H) 81.3 - 96.4 fL MCH 30.9 27.1 - 33.3 pg MCHC 31.4 (L) 32.3 - 35.7 g/dL RDW CV 14.3 11.1 - 14.9 % RDW SD 51.8 (H) 35.7 - 48.1 fL NRBC abs 0.00 0.00 - 0.01 K/cumm Differential, auto Collection Time: 02/27/21 4:40 AM Result Value Ref Range Neutrophil abs 2.8 1.7 - 6.5 K/cumm Imm gran abs 0.0 0.0 - 0.1 K/cumm Lymphocyte abs 2.0 0.8 - 3.3 K/cumm Monocyte abs 0.9 (H) 0.2 - 0.8 K/cumm Eosinophil abs 0.2 0.0 - 0.5 K/cumm Basophil abs 0.0 0.0 - 0.1 K/cumm Neutrophil pct 47.5 % Imm gran pct 0.2 % Lymphocyte pct 33.2 % Monocyte pct 14.5 % Eosinophil pct 3.9 % Basophil pct 0.7 % eGFR Collection Time: 02/27/21 4:40 AM Result Value Ref Range eGFR 19 mL/min/1.73 m2 Transthoracic Echo Complete W Doppler/CF Result Date: 02/07/2021 Narrative: [facility] Cardiology [address], [place] [address] [address] [facility] [address], [place] [address] P:[phone] P:[phone] Echocardiographic Report Patient Name: PEG SON : 1950 Study Date: 02/07/2021 1:35:00 PM Gender: F Tech: Location: [place] Ref.Provider: STACY PEÑA Height(Cm): 173 BSA: 2.43 Weight(Kg): 136.08 Heart Rate: 59 BP: 149/63 Quality: Definity contrast agent used to enhance endocardial border definition Order Provider: STACY PEÑA Procedures: Echocardiographic Report: Transthoracic echocardiogram with complete 2D, M-Mode, color Doppler examination and Definity contrast. In dications: Chest Pain, Preoperative, and Dyspnea on Exertion. Measurements: 2D/M Mode Doppler Measurement Value Normal Range Measurement Value Normal Range EF Mod 60 AV Mean PG 7 mmHg EF MM 64 [ 55 - 70 ] % AV Peak Armando 1.78 m/s LVIDd MM 5.67 [ 3.90 - 5.30 ] cm AV Peak PG 13 mmHg LVIDs MM 3.67 [ 2.30 - 3.90 ] cm AV VTI 0.42 cm LVPWd MM 1.17 [ 0.60 - 1.00 ] cm LVOT Peak Armando 1.14 [ 0.70 - 1.10 ] m/s IVSd MM 1.17 [ 0.60 - 0.90 ] cm LVOT VTI 0.27 cm LA Dimension MM 4.58 [ 2.70 - 3.80 ] cm MV E PeakVel 0.67 [ 0.60 - 1.30 ] m/s AoR Diam MM 2.92 [ 2.60 - 3.70 ] cm MV A Peak Armando 0.91 [ 0.40 - 0.80 ]m/s LA Volume Index 29.00 [ 16.00 - 28.00 ] cc/m2 MV Decel Time 267 [ 150 - 200 ] msec ACS MM 1.83 cm PV Peak Armando 1.34 [ 0.40 - 0.80 ] m/s E' 0.07 E/E' 10 Findings: Interpretation Site: Exam was interpreted at [facility]. Left Ventricle: Normal left ventricular systolic function. No focal wall motionabnormalities. Definity contrast agent used to visually enhance endocardial wall motion and contractility. Lot Number: [id number]. Mild concentric left ventricular hypertrophy. Mild enlargement of left ventricle cavity. Impaired diastolic relaxation Grade I. Ejection fraction is measured at 60 %. Right Ventricle: The right ventricle is not well visualized. Possible mild enlargement of right ventricle.Left Atrium: There is mild enlargement of left atrium. Right Atrium: The right atrium is normal in size. Atrial Septum: Normal atrial septum. Mitral Valve: Normal appearance of the mitral valve. Aortic Valve: Normal appearance of the aortic valve. Tricuspid Valve: Normal appearance of the tricuspidvalve. Right ventricular systolic pressure could not be [...] used. Electronically Signed By: Geena Tran MD, [facility] 2021-02-07 19:19:45 TELEVISION TECHNICIAN Current Facility-Administered Medications Medication Dose Route Frequency Provider Last Rate Last Admin ??? acetaminophen (TYLENOL) tablet 650 mg 650 mg oral Q4H PRN Kiera Quintana MD ??? albuterol HFA (PROVENTIL HFA,VENTOLIN HFA,PROAIR HFA) 90 mcg/actuation inhaler 2 puff 2 puff inhalation Q4H PRN (RT) Padmini Trinh MD ??? budesonide-formoteroL (SYMBICORT) 160-4.5 mcg/actuation inhaler 2 puff 2 puff inhalation BID (RT) Padmini Trinh MD 2 puff at 02/26/212113 ??? calcitRIOL (ROCALTROL) capsule 0.25 mcg 0.25 mcg oral Once per day on Sun LilianKiera francisco MD 0.25 mcg at 02/25/21 0918 ??? cholecalciferol (VITAMIN D-3) tablet 2,000 Units 2,000 Units oral Daily Kiera Quintana MD 2,000 Units at 02/26/21 100 ??? DULoxetine DR (CYMBALTA) extended release capsule 60 mg 60 mg oral Nightly Kiera Quintana MD 60 mg at 02/26/212103 ??? enoxaparin (LOVENOX) syringe 30 mg 30 mg subcutaneous Daily-2100 Cece Veras MD 30 mg at 02/26/212103 ??? furosemide (LASIX) tablet 40 mg 40 mg oral Nightly Kiera Quintana MD 40 mg at 02/26/212102 ??? HYDROcodone-acetaminophen (NORCO) 5-325 mg per tablet 1 tablet 1 tablet oral Q4H PRN Kiera Quintana MD 1 tablet at 02/27/21 0601 ??? ipratropium-albuteroL (DUO-NEB) 0.5-2.5 mg/3 mL nebulizer solution 3 mL 3 mL nebulization BID (RT) Cece Veras MD 3 mL at 02/26/212112 ??? levothyroxine (SYNTHROID) tablet 200 mcg 200 mcg oral Daily - 0600 Kiera Quintana MD 200 mcg at 02/27/21 0558 ??? lidocaine (XYLOCAINE) 10 mg/mL (1 %) injection 2-10 mg 0.2-1 mL other Once PRN Kiera Quintana MD ??? multivit vxdnonti-nora-II-calcium (THERA-M) tablet 1 tablet 1 tablet oral Daily Kiera Quintana MD 1 tablet at 02/26/21 100 ??? pregabalin (LYRICA) capsule 200 mg 200 mg oral BID Kiera Quintana MD 200 mg at 02/26/212102 ??? primidone (MYSOLINE) tablet 50 mg 50 mg oral Nightly Kiera Quintana MD 50 mg at 02/26/212102 ??? prochlorperazine (COMPAZINE) tablet 5 mg 5 mg oral Q6H PRN Kiera Quintana MD Or ??? prochlorperazine (COMPAZINE) injection 5 mg 5 mg intravenous Q6H PRN Kiera Quintana MD ??? propranoloL (INDERAL) tablet 60 mg 60 mg oral BID Kiera Quintana MD 60 mg at 02/26/212103 ??? ramelteon (ROZEREM) tablet 8 mg 8 mg oral Nightly PRN Kiera Quintana MD 8 mg at 02/26/212103 ??? rosuvastatin (CRESTOR) tablet 10 mg 10 mg oral Nightly Kiera Quintana MD 10 mg at 02/26/212102 ??? senna-docusate (PERICOLACE) 8.6-50 mg per tablet 1 tablet 1 tablet oral BID PRN Kiera Quintana MD 1 tablet at 02/25/21 1637 ??? sodium chloride 0.9% flush 0.5-20 mL 0.5-20 mL intra-catheter PRN Kiera Quintana MD ??? sodium chloride 0.9% flush 0.5-20 mL 0.5-20 mL intra-catheter Q8H QUINTON Kiera Quintana MD 10 mL at 02/26/21 1511 ??? sodium chloride 0.9% flush 0.5-20 mL 0.5-20 mL intra-catheter PRN Kiera Quintana MD ??? [Held by Provider] spironolactone (ALDACTONE) tablet 50 mg 50 mg oral Daily Kiera Quintana MD A/P: MDM Principal Problem: Acute respiratory failure with hypoxia (CMS/HCC) (HCC) Active Problems: Fibromyalgia Other hyperlipidemia End stage renal disease (CMS/HCC) (HCC) Hypoxia Resolved Problems: No resolved hospital problems. Acute respiratory with hypoxia Postop Patient has 80 pack-year smoking history, received IV fluids with surgery, small area of focal consolidation per my read on chest CT CT chest done without contrast in view of her renal failure Differential diagnosis why including COPD exacerbation versus fluid overload versus perfusion defect from PE Pulmonology consulted Consider increasing her home diuretic dose, V/Q scan, lower extremity Dopplers, starting bronchodilators, starting antibiotics formal CT chest read-->fibrosis vs malignancy ddimer not useful in CKD/ESRD-->Order VQ scan, LE doppler 02/26 1L 89-95% Wean as tolerated outpt pulm fu for RLL lesion 02/27 6 min walk study td, OHS, FELISHA, COPD ESRD Fistula created Potassium 5.1 today Hold spironolactone Continue Lasix possibly increasing dose Hypertension Continue Lasix Continue propranolol 60 b.i.d. 02/26 Still hold spironolactone K ok today, BP off spironolactone 02/27 Hold spironolactone, BP wnl Heart failure preserved. Fraction grade 1 diastolic dysfunction Continue diuretics with Lasix, beta-kanchan, Domenic Arb not on board likely in view of her renal function Hold spironolactone given hyperkalemia today Fibromyalgia Continue Lyrica, Cymbalta Hypothyroidism Continue levothyroxine Voice recognition software [employer] was used dictate and transcribe this document. Field Machinist variances may occur. Despite proofreading, typographical errors may occur. Cece Veras MD 02/27/2021 7:21 AM VISION TECHNICIAN * Padmini Trinh MD - 02/26/2021 1:23 PM CST PULMONARY NOTE Visit Date: 02/26/21 Reason for consult/Chief Complaint: Hypoxia Interval history: Improved. Still on 1-2 L oxygen. No new hemoptysis HPI: Patient is a 70 y.o. female w/ PMH ESRD, obesity, chart h/o COPD, HTN, cirrhosis, fibromyalgia, allergic rhinitis of who presented for AV fistula creation. Underwent surgery on 02/24. Postop note hypoxic so she was admitted. CT showed right lower lobe nodule/mass as well as some other small pulmonary nodules She does not have a formal diagnosis of FELISHA but she think she may have it based on her symptoms. Social History: 50 + pack year history, quit 2015. Denies any alcohol or drugs. No significant occupational exposures. OBJECTIVE: Physical Exam: Vitals: 02/26/21 0314 02/26/21 0553 02/26/21 0700 02/26/21 1100 BP: 121/73 109/66 113/68 BP Location: Right arm Right arm Right arm Patient Position: Pulse: 64 60 62 Resp: 16 Temp: 36.3 ??C (97.3 ??F) 36.6 ??C (97.8 ??F) 36.5 ??C (97.7 ??F) TempSrc: Oral Oral Oral SpO2: 92% 91% 94% 93% Weight: Height: Constitutional: In no acute distress, appears stated age, obese Integumentary: Warm, no new rash Head: Atraumatic, normocephalic Eyes: EOM's intact, no scleral icterus Ears, Nose, Mouth, and Throat: Ext. ears & nose normal Cardiovascular: RRR, no obvious friction rub Respiratory: Mostly clear, no wheezes Abdomen: Soft, nontender Musculoskeletal/Extremities: No Cyanosis or clubbing Neurological: No Aphasia, no new gross focal deficits Psychiatric: Alert, appropriate affect Data Review: BMP Lab Results Component Value Date GLUCOSE 103 02/26/2021 CALCIUM 9.3 02/26/2021 SODIUM 142 02/26/2021 POTASSIUM 4.3 02/26/2021 CO2 31 02/26/2021 BUNSER 37 (H) 02/26/2021 CREATININE 2.90 (H) 02/26/2021 CBC: Lab Results Component Value Date WBC 6.1 02/26/2021 RBC 4.28 02/26/2021 HGB 13.0 02/26/2021 HCT 42.1 02/26/2021 MCV 98.4 (H) 02/26/2021 MCH 30.4 02/26/2021 MCHC 30.9 (L) 02/26/2021 RDWCV 14.4 02/26/2021 RDWSD 52.1 (H) 02/26/2021 MPV 11.0 02/26/2021 NRBCABS 0.00 02/26/2021 ASSESSMENT 1. Acute respiratory failure with hypoxia o Acute vs chronic? Probably multifactorial, related to COPD, restriction/obese hypoventilation, pulmonary edema, atelectasis, etc 2. Acute r on chronic respiratory failure hypercapnia o Clinically Improved. Due to hypoventilation and COPD. o Based on ABG, baseline pCO2 is probably in the 50s 3. COPD o No PFTs available but has significant smoking history in symptoms. 4. Pulmonary nodules o Has a large right lower lobe opacity as well as some other smaller nodules. o This will need follow-up outpatient imaging 5. Seasonal Allergic rhinitis o 6. Probable restrictive lung disease and obesity hypoventilation o 7. Probable FELISHA 8. CKD 5/ESRD 9. Obesity 10. H/o tobacco abuse o 50 pack year history, quit in 2016 PLAN ??? Continue bronchodilators and nebulizers ??? Encourage incentive spirometry and aggressive pulmonary hygiene:PT/OT, get patient out of bed to chair, ambulate, ect.. ? ? Continue 1-2 L, titrate oxygen for goal SpO2 > 90% ??? Will benefit from outpatient sleep study ??? Continue Lasix, give an extra dose. Keep euvolemic ??? Try to minimize naracotics ??? DVT prophylaxis: Lovenox Patient wants to go home today. She could be discharged today but would need walk test and arranging home oxygen prior to discharge. Otherwise would continue to try to wean oxygen to room air and re-evaluate tomorrow. Regardless she will need walk test prior to discharge and home O2 if not able to be on room air. She will also need follow-up with me in clinic for evaluation of lung nodule and respiratory issues Padmini Trinh MD There may be syntax/grammatical errors in this note due to the use of voice recognition software. VISION TECHNICIAN VISION TECHNICIAN * Pieter Funes, STEAM [employer]OVEL OPERATING ENGINEER - 02/26/2021 10:20 AM CST Physical Therapy 02/26/21 1020 PT Last Visit Session Type Treatment PT Received On 02/26/21 Safe Environment Arm Band Checked Subjective Agreeable to Therapy Precautions Precautions Fall risk Pain Assessment Pain Assessment No/denies pain Cognition Arousal/Alertness Alert Orientation Oriented X4 (person, place, time, situation) Bed Mobility 1 Bed Mobility From 1 Supine Bed Mobility Type 1 To Bed Mobility to 1 Edge of bed Level of Assistance 1 Minimum Assist Bed Mobility Comments 1 patient has lilly wik catheter Transfer 1 Transfer From 1 Sit Transfer Type 1 To and from Transfer to 1 Stand Transfer Device 1 Single point cane Transfer Level of Assistance 1 Minimum Assist Trials/Comments 1 limited wbing left UE, was incontinent of urine. PCT in room. Patient left in care of PCT for clean up. Ambulation 1 Distance (ft) 1 2 Surface 1 Level tile Device 1 Single point cane Assistance 1 Minimum Assist Ambulation Comments 1 use 2 assist if ambulating a longer distance (Patient transferred to chair) Recommendation/Plan Progress Progressing toward goals Multi-Disciplinary Problems (from Physical Therapy) Active Problems Problem: PT Misc Start Date: 02/25/21 Goal Start Date Expected End Date End Date PT [facility] 1 02/25/21 03/04/21 -- Goal Details: Will perform AAROM/AROM ex x B LE x 10 reps until indep Goal Start Date Expected End Date End Date PT [facility] 2 02/25/21 03/04/21 -- Goal Details: Will transfer bed<>chair with wheeled walker and min assist of 1 and cues met Goal Start Date Expected End Date End Date PT [facility] 3 02/25/21 03/04/21 -- Goal Details: Will amb 50 ft with wheeled walker and min assist of 1 and cues Educated the patient to the role of physical therapy, plan of care, goals of therapy, rationale forprogressing mobility and home safety. Patient was left in standard chair with all needs met and equipment intact. Safety measures includehandoff to nurse/tech, oriented to call light and placed within reach, and personal items within reach. Mobility and ADL status posted at bedside and within medical record. VISION TECHNICIAN * Андрей Valdes MD - 02/26/2021 8:07 AM CST Vascular Surgery Daily Progress Patient Name/MRN: Peg Son [id number] Treatment Team: Vascular Surgery Attending: Cece Veras MD Today's Date: 02/26/2021 Room/Bed: [place] [id number] Admit Date: 02/24/2021 Code Status: Full Code Subjective Chief complaint: End-stage renal disease Clinical Update: Minimal pain left arm Physical Exam: Incisions left arm healing. Left AV fistula wilkins Allergies Allergen Reactions ??? Sulfa (Sulfonamide Antibiotics) Hives Reaction: Hives, ??? Aspirin Swelling Reaction: Swelling, ??? Peanut Unknown Current Facility-Administered Medications Medication Dose Route Frequency Provider Last Rate Last Admin ??? acetaminophen (TYLENOL) tablet 650 mg 650 mg oral Q4H PRN Kiera Quintana MD ??? albuterol HFA (PROVENTIL HFA,VENTOLIN HFA,PROAIR HFA) 90 mcg/actuation inhaler 2 puff 2 puff inhalation Q4H PRN (RT) Padmini Trinh MD ??? budesonide-formoteroL (SYMBICORT) 160-4.5 mcg/actuation inhaler 2 puff 2 puff inhalation BID (RT) Padmini Trinh MD 2 puff at 02/26/21 0554 ??? calcitRIOL (ROCALTROL) capsule 0.25 mcg 0.25 mcg oral Once per day on Sun Kiera Quintana MD 0.25 mcg at 02/25/21 0918 ??? cholecalciferol (VITAMIN D-3) tablet 2,000 Units 2,000 Units oral Daily Kiera Quintana MD 2,000 Units at 02/25/21917 ??? DULoxetine DR (CYMBALTA) extended release capsule 60 mg 60 mg oral Nightly Kiera Quintana MD 60 mg at 02/25/212014 ??? furosemide (LASIX) tablet 40 mg 40 mg oral Nightly Kiera Quintana MD 40 mg at 02/25/212014 ??? HYDROcodone-acetaminophen (NORCO) 5-325 mg per tablet 1 tablet 1 tablet oral Q4H PRN Kiera Quintana MD 1 tablet at 02/26/21 0526 ??? ipratropium-albuteroL (DUO-NEB) 0.5-2.5 mg/3 mL nebulizer solution 3 mL 3 mL nebulization Q6H While awake (RT) Padmini Trinh MD 3 mL at 02/26/21 0553 ??? levothyroxine (SYNTHROID) tablet 200 mcg 200 mcg oral Daily - 0600 Kiera Quintana MD 200 mcg at 02/26/21 0526 ??? lidocaine (XYLOCAINE) 10 mg/mL (1 %) injection 2-10 mg 0.2-1 mL other Once PRN Kiera Quintana MD ??? multivit fkdjyeak-xhxy-KA-calcium (THERA-M) tablet 1 tablet 1 tablet oral Daily Kiera Quintana MD 1 tablet at 02/25/21 0917 ??? pregabalin (LYRICA) capsule 200 mg 200 mg oral BID Kiera Quintana MD 200 mg at 02/25/212014 ??? primidone (MYSOLINE) tablet 50 mg 50 mg oral Nightly Kiera Quintana MD 50 mg at 02/25/212014 ??? prochlorperazine (COMPAZINE) tablet 5 mg 5 mg oral Q6H PRN Kiera Quintana MD Or ??? prochlorperazine (COMPAZINE) injection 5 mg 5 mg intravenous Q6H PRN Kiera Quintana MD ??? propranoloL (INDERAL) tablet 60 mg 60 mg oral BID Kiera Quintana MD 60 mg at 02/25/212014 ??? ramelteon (ROZEREM) tablet 8 mg 8 mg oral Nightly PRN Kiera Quintana MD ??? rosuvastatin (CRESTOR) tablet 10 mg 10 mg oral Nightly Kiera Quintana MD 10 mg at 02/25/212014 ??? senna-docusate (PERICOLACE) 8.6-50 mg per tablet 1 tablet 1 tablet oral BID PRN Kiera Quintana MD 1 tablet at 02/25/21 1637 ??? sodium chloride 0.9% flush 0.5-20 mL 0.5-20 mL intra-catheter PRN Kiera Quintana MD ??? sodium chloride 0.9% flush 0.5-20 mL 0.5-20 mL intra-catheter Q8H QUINTON Kiera Quintana MD 10 mL at 02/25/212021 ??? sodium chloride 0.9% flush 0.5-20 mL 0.5-20 mL intra-catheter PRN Kiera Quintana MD ??? [Held by Provider] spironolactone (ALDACTONE) tablet 50 mg 50 mg oral Daily Kiera Quintana MD Objective Vitals: 24hr Min/Max: Temp Min: 36.3 ??C (97.3 ??F) Max: 37.1 ??C (98.8 ??F) Pulse Min: 60 Max: 72 BP Min: 109/66 Max: 122/73 Resp Min: 14 Max: 20 SpO2 Min: 91 % Max: 94 % Most Recent : Vitals: 02/26/21 0700 BP: 109/66 Pulse: 60 Resp: 18 Temp: 36.6 ??C (97.8 ??F) SpO2: 94% I/O last 2 completed shifts: In: 990 [P.O.:720; I.V.:270] Out: 450 [Urine:450] No intake/output data recorded. Impression: Postoperative day 2 status post left brachiocephalic AV fistula. Wounds healing well. Plan: As per medical consultants Андрей Valdes MD VISION TECHNICIAN * Cece Veras MD - 02/26/2021 7:21 AM CST General Medicine Daily Progress SUBJECTIVE Chief complaint of creation of left arm AV fistula.. 70-year-old female with past medical history of hypertension, COPD, have heart failure preserved ejection fraction G1DD/EF 60%, CKD progressing to ESRD, hypothyroidism, osteoarthritis, morbid obesity, fibromyalgia, Patient noted to have saturation in the 80s prior to surgery per H&P however per nursing no lilly op sats was 96% on room air, decreased to 73 on room air postop, placed on 3 L satting 97%, consulted hospitalist for evaluation management. Interval History: ABG obtained showing hypoxia as well as CO2 retention CO2 65 mild acidosis pH 7.32 CT chest without contrast obtained no formal read yet per my read right lower lobe focal consolidation with small pleural effusion, possible atelectasis as well Patient has been receiving postop IV fluid 30 mL/hour were hold this for now Net positive 2 L urine output not counted Currently on 3 L satting mid 90s% Mild hyperkalemia potassium 5.1 today will hold spironolactone this morning Deny long distance travel, hx of malignancy, hx of VTE, no steroid estrogen use, no imobility Reports COPD but not on any inhalers, does not think had PFTs Reports L leg more painful however maybe not when I press on L leg 80s on RA 90-91% 02/26/2021 On 2 L yesterday, wean to 1 L this morning V/Q done yesterday low probability, lower extremity Doppler no DVT Echo from January shows grade 1 diastolic dysfunction, EF 60%, normal atrial septum Started bronchodilators Potassium 4.3 from 5.1 yesterday, spironolactone was held, blood pressure within normal Messaged vascular surgeon regarding starting chemical DVT prophylaxis OBJECTIVE Vitals: 24hr Min/Max: Temp Min: 36.3 ??C (97.3 ??F) Max: 37.1 ??C (98.8 ??F) Pulse Min: 60 Max: 72 BP Min: 116/74 Max: 122/73 Resp Min: 14 Max: 20 SpO2 Min: 91 % Max: 93 % Most Recent : Vitals: 02/26/21 0553 BP: Pulse: Resp: Temp: SpO2: 91% I/O last 2 completed shifts: In: 990 [P.O.:720; I.V.:270] Out: 450 [Urine:450] No intake/output data recorded. Physical Exam: General Exam: In no acute distress Skin: Dry, Warm. ABSENT: Jaundice, Rash Head: Atraumatic, Normocephalic Ears, Nose, Mouth, Throat: Ext. ears & nose normal, Moist mucous membranes Neck: Supple Cardiovascular: Normal range, Regular rhythm, S1S2 normal. ABSENT: Edema Respiratory: 80s on RA 90-91% on 2L Effort normal, Decreased air movement in RLL. Overall good air movbement, no wheezing ABSENT: Crackles, Rhonchi Abdomen: Bowel sounds present, Soft. ABSENT: Mass, Tenderness, Distention Musculoskeletal/Extremities: Joints normal Neurological: Cranial nerves II-XII WNL. ABSENT: Gross deficits, Facial droop, Focal weakness, Tremors Psychiatric: Affect appropriate, Alert Psychiatric - Orientation: Oriented to: Time, Place, Person Lab/Current Medication Review: Recent Results (from the past 24 hour(s)) ECG 12 lead Collection Time: 02/25/21 7:49 AM Result Value Ref Range Ventricular Rate EKG/Min 68 BPM Atrial Rate 68 BPM CA-Interval (MSEC) 198 ms QRS-Interval (MSEC) 104 ms QT-Interval (MSEC) 386 ms QTc 410 ms P [place] 76 degrees R [place] -47 degrees T [place] 42 degrees Diagnosis Normal sinus rhythm Left anterior fascicular block Abnormal ECG When compared with ECG of 30-DEC-2020 11:29, No significant change was found Comprehensive metabolic panel Collection Time: 02/26/21 5:19 AM Result Value Ref Range Sodium 142 135 - 145 mmol/L Potassium, pl 4.3 3.3 - 4.9 mmol/L Chloride 101 97 - 110 mmol/L CO2 31 22 - 32 mmol/L Anion gap 10 2 - 15 mmol/L BUN 37 (H) 8 - 25 mg/dL Creatinine 2.90 (H) 0.60 - 1.10 mg/dL Glucose 103 70 - 199 mg/dL Calcium 9.3 8.5 - 10.3 mg/dL Bilirubin, total 0.3 0.1 - 1.2 mg/dL Protein, pl 6.2 (L) 6.5 - 8.5 g/dL Albumin 3.6 3.5 - 5.0 g/dL Alk phos 83 40 - 130 Units/L ALT 10 7 - 45 Units/L AST 27 10 - 45 Units/L Magnesium Collection Time: 02/26/21 5:19 AM Result Value Ref Range Magnesium 2.3 1.4 - 2.5 mg/dL Phosphorus Collection Time: 02/26/21 5:19 AM Result Value Ref Range Phosphorus, pl 4.2 2.3 - 4.5 mg/dL CBC with auto differential Collection Time: 02/26/21 5:19 AM Result Value Ref Range WBC 6.1 3.8 - 9.9 K/cumm Hgb 13.0 11.9 - 15.5 g/dL Hct 42.1 35.6 - 45.5 % Plt 144 (L) 150 - 400 K/cumm MPV 11.0 9.1 - 12.3 fL RBC 4.28 3.90 - 5.20 M/cumm MCV 98.4 (H) 81.3 - 96.4 fL MCH 30.4 27.1 - 33.3 pg MCHC 30.9 (L) 32.3 - 35.7 g/dL RDW CV 14.4 11.1 - 14.9 % RDW SD 52.1 (H) 35.7 - 48.1 fL NRBC abs 0.00 0.00 - 0.01 K/cumm Differential, auto Collection Time: 02/26/21 5:19 AM Result Value Ref Range Neutrophil abs 3.1 1.7 - 6.5 K/cumm Imm gran abs 0.0 0.0 - 0.1 K/cumm Lymphocyte abs 2.1 0.8 - 3.3 K/cumm Monocyte abs 0.8 0.2 - 0.8 K/cumm Eosinophil abs 0.1 0.0 - 0.5 K/cumm Basophil abs 0.0 0.0 - 0.1 K/cumm Neutrophil pct 50.3 % Imm gran pct 0.2 % Lymphocyte pct 34.7 % Monocyte pct 13.2 % Eosinophil pct 1.3 % Basophil pct 0.3 % eGFR Collection Time: 02/26/21 5:19 AM Result Value Ref Range eGFR 16 mL/min/1.73 m2 Transthoracic Echo Complete W Doppler/CF Result Date: 02/07/2021 Narrative: [facility] [address], [place] [address] [address] [facility] [address] [address], [place] [address] P:[phone] P:[phone] Echocardiographic Report Patient Name: PEG SON : 1950 Study Date: 02/07/2021 1:35:00 PM Gender: F Tech: Location: [place] Ref.Provider: STACY PEÑA Height(Cm): 173 BSA: 2.43 Weight(Kg): 136.08 Heart Rate: 59 BP: 149/63 Quality: Definity contrast agent used to enhance endocardial border definition Order Provider: STACY PEÑA Procedures: Echocardiographic Report: Transthoracic echocardiogram with complete 2D, M-Mode, color Doppler examination and Definity contrast. In dications: Chest Pain, Preoperative, and Dyspnea on Exertion. Measurements: 2D/M Mode Doppler Measurement Value Normal Range Measurement Value Normal Range EF Mod 60 AV Mean PG 7 mmHg EF MM 64 [ 55- 70 ] % AV Peak Armando 1.78 m/s LVIDd MM 5.67 [ 3.90 - 5.30 ] cm AV Peak PG 13 mmHg LVIDs MM 3.67 [ 2.30 - 3.90 ] cm AV VTI 0.42 cm LVPWd MM 1.17 [ 0.60 - 1.00 ] cm LVOT Peak Armando 1.14 [ 0.70 - 1.10 ] m/s IVSd MM 1.17 [ 0.60 - 0.90 ] cm LVOT VTI 0.27 cm LA Dimension MM 4.58 [ 2.70 - 3.80 ] cm MV E Peak Armando 0.67 [ 0.60 - 1.30 ] m/s AoR Diam MM 2.92 [ 2.60 - 3.70 ] cm MV A Peak Armando 0.91 [ 0.40 - 0.80 ] m/s LA Volume Index 29.00 [ 16.00 - 28.00 ] cc/m2 MV Decel Time 267 [ 150 - 200 ] msec ACS MM 1.83 cm PV Peak Armando 1.34 [ 0.40 - 0.80 ] m/s E' 0.07 E/E' 10 Findings: Interpretation Site: Exam was interpreted at [facility]. Left Ventricle: Normal left ventricular systolic function. No focal wall motion abnormalities. Definity contrast agent used to visually enhance endocardial wall motion and contractility. Lot Number: [id number]. Mild concentric left ventricular hypertrophy. Mild enlargement of left ventricle cavity. Impaired diastolic relaxation Grade I. Ejection fraction is measured at 60 %. RightVentricle: The right ventricle is not well visualized. Possible mild enlargement of right ventricle. Left Atrium: There is mild enlargement of left atrium. Right Atrium: The right atrium is normal insize. Atrial Septum: Normal atrial septum. Mitral Valve: [...] used. Electronically Signed By: Geena Tran MD, [id number] 19:19:45 TELEVISION TECHNICIAN Current Facility-Administered Medications Medication Dose Route Frequency Provider Last Rate Last Admin ??? acetaminophen (TYLENOL) tablet 650 mg 650 mg oral Q4H PRN Kiera Quintana MD ??? albuterol HFA (PROVENTIL HFA,VENTOLIN HFA,PROAIR HFA) 90 mcg/actuation inhaler 2 puff 2 puff inhalation Q4H PRN (RT) Padmini Trinh MD ??? budesonide-formoteroL (SYMBICORT) 160-4.5 mcg/actuation inhaler 2 puff 2 puff inhalation BID (RT) Padmini Trinh MD 2 puff at 02/26/21 0554 ??? calcitRIOL (ROCALTROL) capsule 0.25 mcg 0.25 mcg oral Once per day on Sun Kiera Quintana MD 0.25 mcg at 02/25/21917 ??? cholecalciferol (VITAMIN D-3) tablet 2,000 Units 2,000 Units oral Daily Kiera Quintana MD 2,000 Units at 02/25/21917 ??? DULoxetine DR (CYMBALTA) extended release capsule 60 mg 60 mg oral Nightly Kiera Quintana MD 60 mg at 02/25/212014 ??? furosemide (LASIX) tablet 40 mg 40 mg oral Nightly Kiera Quintana MD 40 mg at 02/25/212014 ??? HYDROcodone-acetaminophen (NORCO) 5-325 mg per tablet 1 tablet 1 tablet oral Q4H PRN Kiera Quintana MD 1 tablet at 02/26/21 0526 ??? ipratropium-albuteroL (DUO-NEB) 0.5-2.5 mg/3 mL nebulizer solution 3 mL 3 mL nebulization Q6H While awake (RT) Padmini Trinh MD 3 mL at 02/26/21 0553 ??? levothyroxine (SYNTHROID) tablet 200 mcg 200 mcg oral Daily - 0600 Kiera Quintana MD 200 mcg at 02/26/21 0526 ??? lidocaine (XYLOCAINE) 10 mg/mL (1 %) injection 2-10 mg 0.2-1 mL other Once PRN Kiera Quintana MD ??? multivit icoucbok-wymj-MV-calcium (THERA-M) tablet 1 tablet 1 tablet oral Daily Kiera Quintana MD 1 tablet at 02/25/21 0917 ??? pregabalin (LYRICA) capsule 200 mg 200 mg oral BID Kiera Quintana MD 200 mg at 02/25/212014 ??? primidone (MYSOLINE) tablet 50 mg 50 mg oral Nightly Kiera Quintana MD 50 mg at 02/25/212014 ??? prochlorperazine (COMPAZINE) tablet 5 mg 5 mg oral Q6H PRN Kiera Quintana MD Or ??? prochlorperazine (COMPAZINE) injection 5 mg 5 mg intravenous Q6H PRN Kiera Quintana MD ??? propranoloL (INDERAL) tablet 60 mg 60 mg oral BID Kiera Quintana MD 60 mg at 02/25/212014 ??? ramelteon (ROZEREM) tablet 8 mg 8 mg oral Nightly PRN Kiera Quintana MD ??? rosuvastatin (CRESTOR) tablet 10 mg 10 mg oral Nightly Kiera Quintana MD 10 mg at 02/25/212014 ??? senna-docusate (PERICOLACE) 8.6-50 mg per tablet 1 tablet 1 tablet oral BID PRN Kiera Quintana MD 1 tablet at 02/25/21 1637 ??? sodium chloride 0.9% flush 0.5-20 mL 0.5-20 mL intra-catheter PRN Kiera Quintana MD ??? sodium chloride 0.9% flush 0.5-20 mL 0.5-20 mL intra-catheter Q8H QUINTON Kiera Quintana MD 10 mL at 02/25/212021 ??? sodium chloride 0.9% flush 0.5-20 mL 0.5-20 mL intra-catheter PRN Kiera Quintana MD ??? [Held by Provider] sodium chloride 0.9% infusion 30 mL/hr intravenous Continuous Kiera Quintana MD 30 mL/hr at 02/24/21 2348 30 mL/hr at 02/24/21 2348 ??? [Held by Provider] spironolactone (ALDACTONE) tablet 50 mg 50 mg oral Daily Kiera Quintana MD A/P: MDM Principal Problem: Acute respiratory failure with hypoxia (CMS/HCC) ([facility]) Active Problems: Fibromyalgia Other hyperlipidemia End stage renal disease (CMS/HCC) (HCC) Resolved Problems: No resolved hospital problems. Acute respiratory with hypoxia Postop Patient has 80 pack-year smoking history, received IV fluids with surgery, small area of focal consolidation per my read on chest CT CT chest done without contrast in view of her renal failure Differential diagnosis why including COPD exacerbation versus fluid overload versus perfusion defect from PE Pulmonology consulted Consider increasing her home diuretic dose, V/Q scan, lower extremity Dopplers, starting bronchodilators, starting antibiotics formal CT chest read-->fibrosis vs malignancy ddimer not useful in CKD/ESRD-->Order VQ scan, LE doppler 02/26 1L 89-95% Wean as tolerated outpt pulm fu for RLL lesion ESRD Fistula created Potassium 5.1 today Hold spironolactone Continue Lasix possibly increasing dose Hypertension Continue Lasix Continue propranolol 60 b.i.d. 02/26 Still hold spironolactone K ok today, BP off spironolactone Heart failure preserved. Fraction grade 1 diastolic dysfunction Continue diuretics with Lasix, beta-kanchan, Domenic Arb not on board likely in view of her renal function Hold spironolactone given hyperkalemia today Fibromyalgia Continue Lyrica, Cymbalta Hypothyroidism Continue levothyroxine Voice recognition software Intr[employer] Fluency Direct was used dictate and transcribe this document. Field Machinist variances may occur. Despite proofreading, typographical errors may occur. Cece Veras MD 02/26/2021 7:21 AM VISION TECHNICIAN * Ailyn Rainey RN - 02/25/2021 3:31 PM CST CM Initial Assessment Interview Note Information Obtained From: Patient (02/25/211530) Admission Source: PACU Impression: Presented for an AV fistula formation. Developed hypoxia with sat as low as 65%. Currently on 2L/NC sat 98%. Chest CT pending, venous duplex pending. Plan Includes: Pulmonary and Vascular consults, IVF, PT/OT to eval Primary Source of Transportation: Does the patient need discharge transport arranged?: No (02/24/212102) Health Insurance Coverage: [facility] Medicare Prescription Coverage: UHC Medicare Pharmacy: [facility] Primary Care Provider: Gaudencio Miranda MD Prior to Admission: Primary Caregiver: Family Support System: Spouse/Significant Other,Family members Home Care Services: No Durable Medical Equipment: Walker (wheeled),Rollator Living Arrangements: Spouse/significant other,Family members Type of Residence: Private residence (02/25/211530) Potential discharge needs include: HHC vs SNF Patient expects to be Discharged to: Private residence, (02/25/211530) Additional Information: She is very leary of being around people. She would be willing to accept HHC but is hesitant to go to SNF. Discussed the benefits of both options. She would prefer HHC at thistime. Patient's Identified Problem/Goal Problem: Ensure acute medical needs are met and that patient has a safe discharge plan. Goal: Secure a discharge plan that patient/family are agreeable with and ensure patient has continuum of care. Case management will follow for discharge planning and send referrals as needed. Goals include: To assure continuity of care, To maximize coping skills, To assure patient is in a safe environment and To assure access to community resources. Ailyn Rainey, RN VISION TECHNICIAN * Parveen Garcias - 02/25/2021 10:09 AM CST Pt appreciated the visit but she did not indicate a desire for spiritual support. 02/25/21 1000 Time Spent Start Time 1009 Patient Spiritual Assessment Spirituality Assessed Yes Oriental Orthodox Affiliation None Active in Scientology No Clinical Encounter Type Visited With Patient Response Type Routine visit VISION TECHNICIAN * sAhli Mora, PT - 02/25/2021 8:53 AM CST Physical Therapy 02/25/21 0853 General Chart Reviewed Yes Session Type Evaluation PT Received On 02/25/21 Safe Environment Arm Band Checked;Notified RN;Patient found sitting in Chair Subjective Agreeable to Therapy Additional Pertinent History 02/24/21 AV fistula, ESRD/HD, B knee OA Precautions Precautions Fall risk Precaution Comments O2, tele, IV Home Living Type of Home House Home Layout Multi-level (tri-level home) Home Access Stairs to enter without rails Entrance Stairs-Number of Steps 1 Additional Comments chair lift to upper level. Prior Function Level of [place] Needs assistance with ADLs;Dependent with homemaking;Independent with ambulation Lives With Spouse Receives Help From Spouse/Significant other;Family Driving No Mode of Transportation Driven by others Fall within the last 6 months Yes Fall within the last 6 months comment 4 falls due to knee buckling Prior Function Comments Pt amb with rollator or cane. spouse works 5 dys a wk and drives. Daughter assist pt with ADL's and performs IADL's/shopping/meds/driving. Pain Assessment Pain Assessment Parker-Flores FACES Parker-Flores FACES Pain Rating 4 Pain Location Knee Pain Orientation Right Transfer 1 Transfer From 1 Chair with arms Transfer Type 1 To and from Transfer to 1 Stand Technique 1 Sit to stand;Stand to sit Transfer Level of Assistance 1 Minimum Assist;Minimal verbal cues;Minimal tactile cues (assist of 2) Trials/Comments 1 assist for balance/weakness and cues for sequence/safety/hand placement. Pt unsteady with standing and returned to chair. RN instructed therapists pt was NWB L UE-PT later contacted Allison who indicated pt could bear 10 lb through L UE. Pt would benefit from walker for mobility. Ambulation 1 Ambulation Comments 1 not attempted at eval due to unsteadiness/weakness. PT Treatment/Exercise Comments PT Treatment/Exercise Comments B LE strength 3- to 05/21. Assessment Problem List Decreased strength;Decreased endurance;Impaired balance;Decreased mobility;Pain Recommendation/Plan PT Recommendation/Plan Care Home Facility PT Frequency 5-7x/wk Treatment/Interventions Balance Training;Bed mobility;Endurance training;Functional activity;Functional transfer training;Gait training;Strengthening;Therapeutic activity;Therapeutic exercise;Transfer training PT - Next Appointment 03/11/21 PT Evaluation Complete Yes Multi-Disciplinary Problems (from Physical Therapy) Active Problems Problem: PT [facility] Start Date: 02/25/21 Goal Start Date Expected End Date End Date PT [facility] 1 02/25/21 03/04/21 -- Goal Details: Will perform AAROM/AROM ex x B LE x 10 reps until indep Goal Start Date Expected End Date End Date PT [facility] 2 02/25/21 03/04/21 -- Goal Details: Will transfer bed<>chair with wheeled walker and min assist of 1 and cues Goal Start Date Expected End Date End Date PT [facility] 3 02/25/21 03/04/21 -- Goal Details: Will amb 50 ft with wheeled walker and min assist of 1 and cues Educated the patient to the role of physical therapy, plan of care, goals of therapy, rationale forprogressing mobility and home safety. Patient was left in bed with alarm on and with all needs met and equipment intact. Safety measures include handoff to nurse/tech, bed alarm activated, oriented to call light and placed within reach, personal items within reach, and bed placed in lowest position. Mobility and ADL status posted at bedside and within medical record. VISION TECHNICIAN * Kelsea Chung, OT - 02/25/2021 8:52 AM CST Occupational Therapy 02/25/21 0852 General Chart Reviewed Yes Session Type Evaluation OT Received On 02/25/21 Safe Environment Arm Band Checked;Notified RN;Call Light within Reach;Chair Alarm placed and activated;Session Completed Bedside;Patient found sitting in Chair;Overbed Table within Reach Subjective Agreeable to Therapy Subjective Comment Pt stated, my legs buckle a lot at home; I use a rollator and cane. Additional Pertinent History Pt admitted for acute respiratory failure with hypoxia. PMH of COPD, GERD, ESRD, HLD, CKD, OA of cervical and lumbar spine, and frequent falls at home. Family/Caregiver Present No Occupational Therapy-Patient Goal to return home with at discharge Precautions Precautions Fall risk Weight Bearing Restrictions Yes LUE Weight Bearing (no lifting/pulling/pushing more than 10 lbs (per Dr. Rodgers)) Precaution Comments tele, IV, O2 Home Living Type of Home House Home Layout Multi-level Home Access Level entry Bathroom Shower/Tub Walk-in shower with threshold Bathroom Toilet Raised Bathroom Equipment Grab bars in shower/tub;Built-in shower seat;Grab bars around toilet Bathroom Accessibility Accessible via walker Home Mobility Equipment 4-Wheeled walker;Single point cane Additional Comments Pt lives in tri-level home with no MICHAEL. Pt reports having chair lifts in home. Pt states that prior to this admission, pt used rollator and cane for mobility/transfers in the home. Prior Function Level of [place] Independent functional transfers;Independent with ambulation;Needs assistancewith ADLs;Needs assistance with homemaking Lives With Spouse Receives Help From Spouse/Significant other;Family Driving No Mode of Transportation Car;Driven by others ADL Assistance Needs assistance Instrumental ADL (IADL) Assistance Needs assistance Fall within the last 6 months Yes Fall within the last 6 months comment Pt reports 3-4 falls within last 6 months where her knees tend to buckle. Prior Function Comments Pt reports that her and daughter assists with ADL's and IADL's. Pt states that her works 5 days a week and her daughter comes in to assist daily with meals, medications, and IADL's. ADL ADL Comments Pt requires MAX assist with donning socks while seated EOB; only able to reach to mid calf region while seated in chair.Additional ADL assessment is based on simulated task/activity, PLOF, current BUE/BLE ROM, strength, endurance, balance, safety awareness, and functional transfers. Grooming Grooming: Level of assistance Contact Guard Assist UE Dressing UE Dressing: Level of assistance Minimum Assist LE Dressing LE Dressing: Level of assistance Moderate Assist Toileting Toileting: Level of assistance Moderate Assist Pain Assessment Pain Assessment Parker-Flores FACES Parker-Flores FACES Pain Rating 6 Pain Score 6 Patient's Stated Pain Goal No pain Pain Location Knee Pain Orientation Right Pain Descriptors Aching Pain Frequency Constant/continuous Pain Onset Ongoing Activity Tolerance Endurance Tolerates less than 10 min activity no significant change in vital signs Activity Tolerance Comments Pt is currently on supplemental O2. Pt's O2 sats decrease to 92% when standing with straight cane. Demos fair tolerance/endurance with activity. Cognition Arousal/Alertness Alert Attention Span Appears intact Memory Appears intact Current communication Appears Intact Orientation Oriented X4 (person, place, time, situation) Following Commands Follows all commands and directions without difficulty Safety Judgment Decreased awareness of need for safety Insight Decreased awareness of deficits Compliance/Behavior Easy to engage Hand Function Coordination Functional Gross Grasp Functional Reach/Grasp RUE Reach WFL LUE Reach WFL Static Standing Balance Static Standing-Level of Assistance Minimum assistance (x2) Static Standing-Comment/# of Minutes Pt maintains standing balance at straight cane (R) with MIN assist x2 for balance/safety. Pt requires MIN verbal cues to stand erect at cane. Pt tolerates approx 30-45 seconds of standing, but pt becomes very shaky and knees begin to buckle in standing. Pt wished to take a few steps, but is cued to sit in chair due to weakness and LOB. Pt demos decreased insight/judgment of deficits and decreased safety awareness. Bed Mobility 1 Bed Mobility Comments 1 Pt is seated up at bedside chair upon OT arrival. Transfer 1 Transfer Level of Assistance 1 Minimum Assist (x2) Trials/Comments 1 Pt performs sit<>stand transfer from bedside chair with MIN assist x2 for balance/safety. MIN verbal cues on hand placement and transfer technique. Pt utilizes cane on R side when standing. At time of eval, LUE WB restrictions unclear. Following evaluation, Dr. Rodgers had ordered for no more than 10# through LUE. Pt would benefit from use of wheeled walker in standing. RUE Assessment RUE Assessment WFL LUE Assessment LUE Assessment WFL Assessment Prognosis Good Problem List Decreased upper extremity strength;Decreased safe judgment during ADL;Decreased endurance;Decreased balance;Decreased functional mobility;Decreased ADL independence;Decreased IADL independence;Pain;Gait Problem List Comments Pt presents with the above problem areas hindering occupational performance with daily routine. This pt will benefit from continued skilled acute OT services to maximize functional strength, endurance/activity tolerance, balance, safety, progressive mobility as tolerated, and self-care tasks in order to promote return to PLOF/daily routine. Plan Plan Plan of care initiated Recommendation/Plan OT Recommendation Care Home [facility] OT Recommendation/Plan Comments Pt presents with functional decline, hx of falls, and decreased safety awareness; will benefit from SNF/rehab services at [place] to promote return to PLOF/daily routine. OT Frequency 3-5x/wk Treatment/Interventions ADL/IADL retraining;Balance Training;Bed mobility;Endurance training;Compensatory technique education;Equipment eval/education;Functional activity;Functional mobility training;Functional transfer training;Parent/caregiver training and education;Strengthening;Therapeutic activity;Therapeutic exercise;Transfer training OT - Next Appointment 03/11/21 OT Evaluation Complete Yes Multi-Disciplinary Problems (from Occupational Therapy) Active Problems Problem: OT [facility] Start Date: 02/25/21 Goal Start Date Expected End Date End Date OT [facility] 1 02/25/21 03/04/21 -- Goal Details: 1) UE AND LE ADL FROM CHAIR WITH MIN ASSIST WITH WW AND AE PRN. Goal Start Date Expected End Date End Date OT [facility] 2 02/25/21 03/04/21 -- Goal Details: 2) FUNCTIONAL MOBILITY TO/FROM BATHROOM AND ALL ASPECTS TOILETING SBA WITH DME. Goal Start Date Expected End Date End Date OT [facility] 3 02/25/21 03/04/21 -- Goal Details: 3) STAND AT SINK X4 MIN FOR ADL WITH GOOD BALANCE. Goal Start Date Expected End Date End Date [facility] 4 02/25/21 03/04/21 -- Goal Details: 4) PERFORM ITEM RETRIEVAL FROM HIGH/LOW POSITIONS WITH GOOD BALANCE/SAFETY. Educated the patient to the role of occupational therapy, plan of care, goals of therapy, rationalefor progressing mobility and use of call light. Good understanding. RN notified of session outcome. Patient was left in bedside chair with all needs met and equipment intact. Safety measures include chair alarm activated, oriented to call light and placed within reach, and personal items within reach. Mobility and ADL status posted at bedside and within medical record. Cotx with LPT Ashli for safety of patient and staff due to current diagnosis, medical status, and unknown level of functional performance prior to evaluation. VISION TECHNICIAN * Cece Veras MD - 02/25/2021 8:44 AM CST General Medicine Daily Progress SUBJECTIVE Chief complaint of creation of left arm AV fistula.. 70-year-old female with past medical history of hypertension, COPD, have heart failure preserved ejection fraction G1DD/EF 60%, CKD progressing to ESRD, hypothyroidism, osteoarthritis, morbid obesity, fibromyalgia, Patient noted to have saturation in the 80s prior to surgery per H&P however per nursing no lilly op sats was 96% on room air, decreased to 73 on room air postop, placed on 3 L satting 97%, consulted hospitalist for evaluation management. Interval History: ABG obtained showing hypoxia as well as CO2 retention CO2 65 mild acidosis pH 7.32 CT chest without contrast obtained no formal read yet per my read right lower lobe focal consolidation with small pleural effusion, possible atelectasis as well Patient has been receiving postop IV fluid 30 mL/hour were hold this for now Net positive 2 L urine output not counted Currently on 3 L satting mid 90s% Mild hyperkalemia potassium 5.1 today will hold spironolactone this morning Deny long distance travel, hx of malignancy, hx of VTE, no steroid estrogen use, no imobility Reports COPD but not on any inhalers, does not think had PFTs Reports L leg more painful however maybe not when I press on L leg 80s on RA 90-91% OBJECTIVE Vitals: 24hr Min/Max: Temp Min: 36.3 ??C (97.3 ??F) Max: 37.1 ??C (98.8 ??F) Pulse Min: 61 Max: 80 BP Min: 108/80 Max: 148/70 Resp Min: 16 Max: 20 SpO2 Min: 65 % Max: 100 % Most Recent : Vitals: 02/25/21 0700 BP: 119/73 Pulse: 65 Resp: 18 Temp: 37.1 ??C (98.8 ??F) SpO2: 94% I/O last 2 completed shifts: In: 1760 [P.O.:360; I.V.:1400] Out: - I/O this shift: In: 270 [I.V.:270] Out: - Physical Exam: General Exam: In no acute distress Skin: Dry, Warm. ABSENT: Jaundice, Rash Head: Atraumatic, Normocephalic Ears, Nose, Mouth, Throat: Ext. ears & nose normal, Moist mucous membranes Neck: Supple Cardiovascular: Normal range, Regular rhythm, S1S2 normal. ABSENT: Edema Respiratory: 80s on RA 90-91% on 2L Effort normal, Decreased air movement in RLL. Overall good air movbement, no wheezing ABSENT: Crackles, Rhonchi Abdomen: Bowel sounds present, Soft. ABSENT: Mass, Tenderness, Distention Musculoskeletal/Extremities: Joints normal Neurological: Cranial nerves II-XII WNL. ABSENT: Gross deficits, Facial droop, Focal weakness, Tremors Psychiatric: Affect appropriate, Alert Psychiatric - Orientation: Oriented to: Time, Place, Person Lab/Current Medication Review: Recent Results (from the past 24 hour(s)) aPTT Collection Time: 02/24/21 12:32 PM Result Value Ref Range aPTT 35 22 - 37 sec Basic metabolic panel Collection Time: 02/24/21 12:32 PM Result Value Ref Range Sodium 138 135 - 145 mmol/L Potassium, pl 4.3 3.3 - 4.9 mmol/L Chloride 98 97 - 110 mmol/L CO2 33 (H) 22 - 32 mmol/L Anion gap 7 2 - 15 mmol/L BUN 32 (H) 8 - 25 mg/dL Creatinine 2.40 (H) 0.60 - 1.10 mg/dL Glucose 84 70 - 199 mg/dL Calcium 9.6 8.5 - 10.3 mg/dL CBC with auto differential Collection Time: 02/24/21 12:32 PM Result Value Ref Range WBC 6.9 3.8 - 9.9 K/cumm Hgb 14.3 11.9 - 15.5 g/dL Hct 44.7 35.6 - 45.5 % Plt 159 150 - 400 K/cumm MPV 10.7 9.1 - 12.3 fL RBC 4.61 3.90 - 5.20 M/cumm MCV 97.0 (H) 81.3 - 96.4 fL MCH 31.0 27.1 - 33.3 pg MCHC 32.0 (L) 32.3 - 35.7 g/dL RDW CV 14.1 11.1 - 14.9 % RDW SD 49.7 (H) 35.7 - 48.1 fL NRBC abs 0.00 0.00 - 0.01 K/cumm Protime-INR Collection Time: 02/24/21 12:32 PM Result Value Ref Range PT 13.0 12.0 - 14.6 sec INR 1.0 Differential, auto Collection Time: 02/24/21 12:32 PM Result Value Ref Range Neutrophil abs 3.4 1.7 - 6.5 K/cumm Imm gran abs 0.0 0.0 - 0.1 K/cumm Lymphocyte abs 2.3 0.8 - 3.3 K/cumm Monocyte abs 1.0 (H) 0.2 - 0.8 K/cumm Eosinophil abs 0.2 0.0 - 0.5 K/cumm Basophil abs 0.0 0.0 - 0.1 K/cumm Neutrophil pct 49.9 % Imm gran pct 0.1 % Lymphocyte pct 32.9 % Monocyte pct 14.4 % Eosinophil pct 2.3 % Basophil pct 0.4 % eGFR Collection Time: 02/24/21 12:32 PM Result Value Ref Range eGFR 20 mL/min/1.73 m2 Blood gas, arterial Collection Time: 02/24/21 10:34 PM Result Value Ref Range pH, Art 7.32 (L) 7.35 - 7.45 PCO2, Arterial 65 (H) 35 - 45 mmHg PO2, Arterial 76 (L) 83 - 108 mmHg HCO3 Art (Calculated) 34 (H) 20 - 30 mmol/L BE, art 5 mmol/L Comprehensive metabolic panel Collection Time: 02/25/21 5:31 AM Result Value Ref Range Sodium 140 135 - 145 mmol/L Potassium, pl 5.1 (H) 3.3 - 4.9 mmol/L Chloride 98 97 - 110 mmol/L CO2 30 22 - 32 mmol/L Anion gap 12 2 - 15 mmol/L BUN 28 (H) 8 - 25 mg/dL Creatinine 2.40 (H) 0.60 - 1.10 mg/dL Glucose 138 70 - 199 mg/dL Calcium 9.8 8.5 - 10.3 mg/dL Bilirubin, total 0.3 0.1 - 1.2 mg/dL Protein, pl 7.2 6.5 - 8.5 g/dL Albumin 4.1 3.5 - 5.0 g/dL Alk phos 92 40 - 130 Units/L ALT 13 7 - 45 Units/L AST 23 10 - 45 Units/L Magnesium Collection Time: 02/25/21 5:31 AM Result Value Ref Range Magnesium 2.2 1.4 - 2.5 mg/dL Phosphorus Collection Time: 02/25/21 5:31 AM Result Value Ref Range Phosphorus, pl 3.6 2.3 - 4.5 mg/dL Pro B-type natriuretic peptide Collection Time: 02/25/21 5:31 AM Result Value Ref Range NT-proBNP 782 (H) <=300 pg/mL CBC with auto differential Collection Time: 02/25/21 5:31 AM Result Value Ref Range WBC 8.3 3.8 - 9.9 K/cumm Hgb 14.8 11.9 - 15.5 g/dL Hct 46.7 (H) 35.6 - 45.5 % Plt 205 150 - 400 K/cumm MPV 11.6 9.1 - 12.3 fL RBC 4.77 3.90 - 5.20 M/cumm MCV 97.9 (H) 81.3 - 96.4 fL MCH 31.0 27.1 - 33.3 pg MCHC 31.7 (L) 32.3 - 35.7 g/dL RDW CV 13.9 11.1 - 14.9 % RDW SD 49.9 (H) 35.7 - 48.1 fL NRBC abs 0.00 0.00 - 0.01 K/cumm Differential, auto Collection Time: 02/25/21 5:31 AM Result Value Ref Range Neutrophil abs 6.6 (H) 1.7 - 6.5 K/cumm Imm gran abs 0.0 0.0 - 0.1 K/cumm Lymphocyte abs 1.3 0.8 - 3.3 K/cumm Monocyte abs 0.4 0.2 - 0.8 K/cumm Eosinophil abs 0.0 0.0 - 0.5 K/cumm Basophil abs 0.0 0.0 - 0.1 K/cumm Neutrophil pct 79.6 % Imm gran pct 0.2 % Lymphocyte pct 15.5 % Monocyte pct 4.6 % Eosinophil pct 0.0 % Basophil pct 0.1 % eGFR Collection Time: 02/25/21 5:31 AM Result Value Ref Range eGFR 20 mL/min/1.73 m2 Transthoracic Echo Complete W Doppler/CF Result Date: 02/07/2021 Narrative: [facility] [address], [place] [address] [address] [facility] [address] [facility] [address], [place] [address] P:[phone] P:[phone] Echocardiographic Report Patient Name: PEG SON : 1950 Study Date: 02/07/2021 1:35:00 PM Gender: F Tech: Location: [place] Ref.Provider: STACY PEÑA Height(Cm): 173 BSA: 2.43 Weight(Kg): 136.08 Heart Rate: 59 BP: 149/63 Quality: Definity contrast agent used to enhance endocardial border definition Order Provider: STACY PEÑA Procedures: Echocardiographic Report: Transthoracic echocardiogram with complete 2D, M-Mode, color Doppler examination and Definity contrast. In dications: Chest Pain, Preoperative, and Dyspnea on Exertion. Measurements: 2D/M Mode Doppler Measurement Value Normal Range Measurement Value Normal Range EF Mod 60 AV Mean PG 7 mmHg EF MM 64 [ 55 -70 ] % AV Peak Armando 1.78 m/s LVIDd MM 5.67 [ 3.90 - 5.30 ] cm AV Peak PG 13 mmHg LVIDs MM 3.67 [ 2.30 - 3.90 ] cm AV VTI 0.42 cm LVPWd MM 1.17 [ 0.60 - 1.00 ] cm LVOT Peak Armando 1.14 [ 0.70 - 1.10 ] m/s IVSd MM 1.17 [ 0.60 - 0.90 ] cm LVOT VTI 0.27 cm LA Dimension MM 4.58 [ 2.70 - 3.80 ] cm MV E Peak Armando 0.67 [ 0.60 - 1.30 ] m/s AoR Diam MM 2.92 [ 2.60 - 3.70 ] cm MV A Peak Armando 0.91 [ 0.40 - 0.80 ] m/s LA Volume Index 29.00 [ 16.00 - 28.00 ] cc/m2 MV Decel Time 267 [ 150 - 200 ] msec ACS MM 1.83cm PV Peak Armando 1.34 [ 0.40 - 0.80 ] m/s E' 0.07 E/E' 10 Findings: Interpretation Site: Exam was interpreted at [facility]. Left Ventricle: Normal left ventricular systolic function. [...] could not be estimated due to inadequate visualizationof the tricuspid regurgitation jet. Pulmonic Valve: Trivial regurgitation in the pulmonic valve. Pericardium: Normal pericardium with no significant pericardial effusion. Aorta: Aortic root not well visualized. Sinus of Valsalva is normal. Sinotubular junction is normal. IVC: Normal size and normalrespiratory collapse consistent with normal right atrial pressure [...] valve disease. Normal sinus rhythm. Technically difficult studywith limited views. Definity contrast agent used. Electronically Signed By: Geena Tran MD, [facility] 2021-02-07 19:19:45 TELEVISION TECHNICIAN Current Facility-Administered Medications Medication Dose Route Frequency Provider Last Rate Last Admin ??? acetaminophen (TYLENOL) tablet 650 mg 650 mg oral Q4H PRN Kiera Quintana MD ??? calcitRIOL (ROCALTROL) capsule 0.25 mcg 0.25 mcg oral Once per day on Sun Kiera Quintana MD ??? cholecalciferol (VITAMIN D-3) tablet 2,000 Units 2,000 Units oral Daily Kiera Quintana MD ??? DULoxetine DR (CYMBALTA) extended release capsule 60 mg 60 mg oral Nightly Kiera Quintana MD 60 mg at 02/24/21 2345 ??? furosemide (LASIX) tablet 40 mg 40 mg oral Nightly Kiera Quintana MD 40 mg at 02/25/21 0011 ??? HYDROcodone-acetaminophen (NORCO) 5-325 mg per tablet 1 tablet 1 tablet oral Q4H PRN Kiera Quintana MD 1 tablet at 02/25/21 0509 ??? levothyroxine (SYNTHROID) tablet 200 mcg 200 mcg oral Daily - 0600 Kiera Quintana MD 200 mcg at 02/25/21 0509 ??? lidocaine (XYLOCAINE) 10 mg/mL (1 %) injection 2-10 mg 0.2-1 mL other Once PRN Kiera Quintana MD ??? multivit bspinhmg-qnsx-AV-calcium (THERA-M) tablet 1 tablet 1 tablet oral Daily Kiera Quintana MD ??? pregabalin (LYRICA) capsule 200 mg 200 mg oral BID Kiera Quintana MD 200 mg at 02/24/21 2345 ??? primidone (MYSOLINE) tablet 50 mg 50 mg oral Nightly Kiera Quintana MD 50 mg at 02/24/21 234 ??? prochlorperazine (COMPAZINE) tablet 5 mg 5 mg oral Q6H PRN Kiera Quintana MD Or ??? prochlorperazine (COMPAZINE) injection 5 mg 5 mg intravenous Q6H PRN Kiera Quintana MD ??? propranoloL (INDERAL) tablet 60 mg 60 mg oral BID Kiera Quintana MD ??? ramelteon (ROZEREM) tablet 8 mg 8 mg oral Nightly PRN Kiera Quintana MD ??? rosuvastatin (CRESTOR) tablet 10 mg 10 mg oral Nightly Kiera Quintana MD 10 mg at 02/24/212344 ??? senna-docusate (PERICOLACE) 8.6-50 mg per tablet 1 tablet 1 tablet oral BID PRN Kiera Quintana MD ??? sodium chloride 0.9% flush 0.5-20 mL 0.5-20 mL intra-catheter PRN Kiera Quintana MD ??? sodium chloride 0.9% flush 0.5-20 mL 0.5-20 mL intra-catheter Q8H QUINTON Kiera Quintana MD ??? sodium chloride 0.9% flush 0.5-20 mL 0.5-20 mL intra-catheter PRN Kiera Quintana MD ??? sodium chloride 0.9% infusion 30 mL/hr intravenous Continuous Kiera Quintana MD 30mL/hr at 02/24/212347 30 mL/hr at 02/24/212347 ??? spironolactone (ALDACTONE) tablet 50 mg 50 mg oral Daily Kiera Quintana MD A/P: MDM Principal Problem: Acute respiratory failure with hypoxia (CMS/HCC) ([facility]) Active Problems: Fibromyalgia Other hyperlipidemia End stage renal disease (CMS/HCC) ([facility]) Resolved Problems: No resolved hospital problems. Acute respiratory with hypoxia Postop Patient has 80 pack-year smoking history, received IV fluids with surgery, small area of focal consolidation per my read on chest CT CT chest done without contrast in view of her renal failure Differential diagnosis why including COPD exacerbation versus fluid overload versus perfusion defect from PE Pulmonology consulted Consider increasing her home diuretic dose, V/Q scan, lower extremity Dopplers, starting bronchodilators, starting antibiotics formal CT chest read-->fibrosis vs malignancy ddimer not useful in CKD/ESRD-->Order VQ scan, LE doppler ESRD Fistula created Potassium 5.1 today Hold spironolactone Continue Lasix possibly increasing dose Hypertension Continue Lasix Continue propranolol 60 b.i.d. Heart failure preserved. Fraction grade 1 diastolic dysfunction Continue diuretics with Lasix, beta-kanchan, Domenic Arb not on board likely in view of her renal function Hold spironolactone given hyperkalemia today Fibromyalgia Continue Lyrica, Cymbalta Hypothyroidism Continue levothyroxine Voice recognition software Wayger Direct was used dictate and transcribe this document. Field Machinist variances may occur. Despite proofreading, typographical errors may occur. Cece Veras MD 02/25/2021 8:44 AM VISION TECHNICIAN documented in this encounter H&P Notes * Kiera Quintana MD - 02/24/2021 8:02 PM CST General H&P Subjective Patient is a 70 y.o. female with chief complaint of acute respiratory failure with hypoxia. HPI: This 70-year-old female with a past medical history that includes COPD on no treatment, GERD, and chronic kidney disease stage 4 presents with acute respiratory failure with hypoxia. Patient underwent AV fistula placement for hemodialysis access today and was noted to have an oxygen saturation in the 80s on room air prior to surgery. Patient's oxygen saturation decreased to 73% on room air postop and improved to 94% when 3 L of oxygen per nasal cannula was administered. Patient reports chronic and stable dyspnea, wheezing, and nonproductive cough attributed to postnasal drip. Patient is vaccinated against COVID with plans to receive booster vaccine next week. Patient also underwent preop cardiac evaluation. Past Medical History: Diagnosis Date ??? Acute respiratory failure with hypoxia (CMS/HCC) (HCC) 02/24/2021 ??? Chronic kidney disease stage 4 ??? Cirrhosis of liver (CMS/HCC) (HCC) 02/24/2021 ??? COPD (chronic obstructive pulmonary disease) (CMS/HCC) (HCC) ??? Depression ??? Dry skin ??? Food intolerance PEANUTS ??? GERD (gastroesophageal reflux disease) ??? Headache ??? History of chest pain 12/2020 Previous surgery cancelled R/T possible CP. Surveillance Analyst ruled out heart disease, testing negative. ??? [...] Date ??? AV FISTULA PLACEMENT Left 02/24/2021 ??? BREAST SURGERY Right 1980 lumpectomy ??? CERVICAL FUSION 2005 Per daughter unknown levels and how many fused. ??? EYE SURGERY CATARACTS ??? SPINAL FUSION Spinal Arthrodesis - (Added by TW Conv) ??? VAGINAL DELIVERY x2 Medications Prior to Admission Medication Sig Dispense Refill Last Dose ??? calcitRIOL (ROCALTROL) 0.25 mcg capsule Take 0.25 mcg by mouth every other day Past Week at Unknown time ??? cholecalciferol (VITAMIN D-3) 2000 unit tablet Take 2,000 Units by mouth daily Past Week at Unknown time ??? DULoxetine DR (CYMBALTA) 60 mg capsule Take 60 mg by mouth nightly 02/23/2021 at Unknown time ??? fexofenadine (DEVAUGHN) 180 mg tablet Take 180 mg by mouth daily as needed 0.5 tablet bid 02/23/2021 at Unknown time ??? furosemide (LASIX) 40 mg tablet Take 40 mg by mouth nightly 02/23/2021 at Unknown time ??? HYDROcodone-acetaminophen (NORCO) 5-325 mg per tablet Take 1 tablet by mouth every 6 hours 02/24/2021 at Unknown time ??? levothyroxine (Synthroid) 200 mcg tablet Take 200 mcg by mouth daily 02/24/2021 at Unknown time ??? multivitamin with minerals tablet Take 1 tablet by mouth 2 (two) times a day Past Week at Unknown time ??? pregabalin (LYRICA) 200 mg capsule Take 200 mg by mouth 2 (two) times a day 02/24/2021 at Unknown time ??? primidone (MYSOLINE) 50 mg tablet Take 50 mg by mouth nightly 02/23/2021 at Unknown time ??? propranoloL (INDERAL) 60 mg tablet Take 60 mg by mouth 2 times daily 02/24/2021 at Unknown time ??? rosuvastatin (Crestor) 10 mg tablet Take 10 mg by mouth daily 02/23/2021 at Unknown time ??? spironolactone (ALDACTONE) 50 mg tablet Take 50 mg by mouth daily Unknown at Unknown time Allergies Allergen Reactions ??? Sulfa (Sulfonamide Antibiotics) Hives Reaction: Hives, ??? Aspirin Swelling Reaction: Swelling, ??? Peanut Unknown Social History Tobacco Use ??? Smoking status: Former Smoker Packs/day: 2.00 Years: 40.00 Pack years: 80.00 Types: Cigarettes Quit date: 2015 Years since quittin.9 ??? Smokeless tobacco: Never Used Substance Use Topics ??? Alcohol use: Not on file Social History Socioeconomic History ??? Marital status: Spouse name: Not on file ??? Number of children: Not on file ??? Years of education: Not on file ??? Highest education level: Not on file Occupational History ??? Not on file Tobacco Use ??? Smoking status: Former Smoker Packs/day: 2.00 Years: 40.00 Pack years: 80.00 Types: Cigarettes Quit date: 2015 Years since quittin.9 ??? Smokeless tobacco: Never Used Vaping Use ??? Vaping Use: Never used Substance and Sexual Activity ??? Alcohol use: Not on file ??? Drug use: Never ??? Sexual activity: Defer Other Topics Concern ??? Not on file Social History Narrative Current smoker : (Added by TW Conv) Chronic pain : (Added by TW Conv) Social Determinants of Health Financial Resource Strain: Not on file Food Insecurity: Not on file Transportation Needs: Not on file Physical Activity: Not on file Stress: Not on file Social Connections: Not on file Intimate Partner Violence: Not on file Housing Stability: Not on file Family History Problem Relation Age of Onset ??? Pneumonia Mother ??? Cancer Father ??? Cancer Sister ??? Heart attack Brother Review of Systems Constitutional: Positive for activity change and fatigue. Negative for appetite change, chills, diaphoresis, fever and unexpected weight change. HENT: Positive for postnasal drip. Negative for congestion, rhinorrhea, sneezing and sore throat. Negative for known exposure to anyone infected with COVID or other sick contacts Eyes: Negative for visual disturbance. Respiratory: Positive for cough, shortness of breath and wheezing. Cardiovascular: Positive for leg swelling (Mild and chronic). Negative for chest pain and palpitations. Gastrointestinal: Negative for abdominal pain, nausea and vomiting. Positive for heartburn Endocrine: Positive for cold intolerance. Negative for heat intolerance. Genitourinary: Negative for dysuria and flank pain. Musculoskeletal: Positive for arthralgias (Stable), back pain (Chronic and stable) and myalgias. Negative for gait problem. Skin: Negative for rash and wound. Allergic/Immunologic: Positive for food allergies. Negative for immunocompromised state. Neurological: Positive for dizziness (Chronic and stable), weakness, light- headedness and headaches(Chronic and stable). Negative for syncope. Negative for near-syncope Hematological: Does not bruise/bleed easily. Negative for history of DVT/PE Psychiatric/Behavioral: Positive for confusion (Mild and chronic) and sleep disturbance. Negative for agitation, behavioral problems and suicidal ideas. Breast: Negative for tenderness. Objective Vitals: Arrival Vitals Temp 02/24/21 1236 37.1 ??C (98.8 ??F) Pulse 02/24/21 1236 71 Resp 02/24/21 1236 18 BP 02/24/21 1236 148/70 SpO2 02/24/21 1236 96 % Temp src 02/24/21 1236 Temporal Heart Rate Source 02/24/21 1236 Monitor Patient Position 02/24/21 1633 HOB 30 degrees BP Location 02/24/21 1633 Right arm FiO2 (%) -- 24hr Min/Max: Temp Min: 36.3 ??C (97.3 ??F) Max: 37.1 ??C (98.8 ??F) Pulse Min: 61 Max: 80 BP Min: 108/80 Max: 148/70 Resp Min: 16 Max: 20 SpO2 Min: 65 % Max: 100 % Most Recent : Vitals: 02/24/211951 BP: 127/59 Pulse: 63 Resp: 18 Temp: 36.7 ??C (98 ??F) SpO2: 92% I/O last 2 completed shifts: In: 1400 [I.V.:1400] Out: - No intake/output data recorded. Physical Exam Vitals and nursing note reviewed. Constitutional: General: She is not in acute distress. Appearance: She is obese. She is not toxic-appearing or diaphoretic. Comments: 70-year-old chronically ill female sitting in recliner appearing stated age with daughterat the bedside HENT: Head: Normocephalic and atraumatic. Nose: Nose normal. Mouth/Throat: Mouth: Mucous membranes are moist. Eyes: Extraocular Movements: Extraocular movements intact. Conjunctiva/sclera: Conjunctivae normal. Cardiovascular: Rate and Rhythm: Normal rate and regular rhythm. Comments: Grade 2/6 systolic murmur 3+ radial pulse, right 1+ dorsalis pedis pulse, right Nonpalpable dorsalis pedis pulse, left Pulmonary: Effort: Pulmonary effort is normal. Breath sounds: Normal breath sounds. Abdominal: General: Bowel sounds are normal. There is no distension. Palpations: Abdomen is soft. Tenderness: There is no abdominal tenderness. There is no guarding or rebound. Genitourinary: Comments: Patient has no Hinds catheter Musculoskeletal: Cervical back: Neck supple. No tenderness. Comments: AV graft distal left upper extremity 1-2 +edema, left upper extremity Trace pedal edema, bilateral No cyanosis or clubbing Lymphadenopathy: Cervical: No cervical adenopathy. Skin: General: Skin is warm and dry. Neurological: Mental Status: She is alert. Comments: Patient was alert, appropriately answers questions and follows commands Clear speech, intact gag reflex, moving all extremities Psychiatric: Mood and Affect: Mood normal. Behavior: Behavior normal. Thought Content: Thought content normal. Judgment: Judgment normal. Lab/Radiology/Diagnostic Review: Laboratory review: Lab results in the last 24 hours: Recent Results (from the past 24 hour(s)) aPTT Collection Time: 02/24/21 12:32 PM Result Value Ref Range aPTT 35 22 - 37 sec Basic metabolic panel Collection Time: 02/24/21 12:32 PM Result Value Ref Range Sodium 138 135 - 145 mmol/L Potassium, pl 4.3 3.3 - 4.9 mmol/L Chloride 98 97 - 110 mmol/L CO2 33 (H) 22 - 32 mmol/L Anion gap 7 2 - 15 mmol/L BUN 32 (H) 8 - 25 mg/dL Creatinine 2.40 (H) 0.60 - 1.10 mg/dL Glucose 84 70 - 199 mg/dL Calcium 9.6 8.5 - 10.3 mg/dL CBC with auto differential Collection Time: 02/24/21 12:32 PM Result Value Ref Range WBC 6.9 3.8 - 9.9 K/cumm Hgb 14.3 11.9 - 15.5 g/dL Hct 44.7 35.6 - 45.5 % Plt 159 150 - 400 K/cumm MPV 10.7 9.1 - 12.3 fL RBC 4.61 3.90 - 5.20 M/cumm MCV 97.0 (H) 81.3 - 96.4 fL MCH 31.0 27.1 - 33.3 pg MCHC 32.0 (L) 32.3 - 35.7 g/dL RDW CV 14.1 11.1 - 14.9 % RDW SD 49.7 (H) 35.7 - 48.1 fL NRBC abs 0.00 0.00 - 0.01 K/cumm Protime-INR Collection Time: 02/24/21 12:32 PM Result Value Ref Range PT 13.0 12.0 - 14.6 sec INR 1.0 Differential, auto Collection Time: 02/24/21 12:32 PM Result Value Ref Range Neutrophil abs 3.4 1.7 - 6.5 K/cumm Imm gran abs 0.0 0.0 - 0.1 K/cumm Lymphocyte abs 2.3 0.8 - 3.3 K/cumm Monocyte abs 1.0 (H) 0.2 - 0.8 K/cumm Eosinophil abs 0.2 0.0 - 0.5 K/cumm Basophil abs 0.0 0.0 - 0.1 K/cumm Neutrophil pct 49.9 % Imm gran pct 0.1 % Lymphocyte pct 32.9 % Monocyte pct 14.4 % Eosinophil pct 2.3 % Basophil pct 0.4 % eGFR Collection Time: 02/24/21 12:32 PM Result Value Ref Range eGFR 20 mL/min/1.73 m2 Assessment Principal Problem: Acute respiratory failure with hypoxia -COPD, mild pulmonary edema, patient was negative for COVID pre-op, patient denies having fever or chills CT chest without contrast Arterial blood gas Pulmonology consult in the morning Active Problems: Fibromyalgia-continue Cymbalta, Lyrica, and as needed Dunlo Other hyperlipidemia-continue rosuvastatin End stage renal disease (CMS/HCC) (HCC)-patient is status post left upper extremity arterial venousfistula creation today without complications, POD 0 Non weight lifting left upper extremity Patient will initiate outpatient hemodialysis with [facility] Code status-full VTE prophylaxis-chemical prophylaxis contraindicated in setting of surgery MDM complexity-moderate Time of care-60 minutes. Time spent reviewing previous and current charts, discussing with ED attending, evaluating patient, discussing treatment plans and addressing concerns at the bedside, documenting, and formulating a treatment plan Voice recognition software MModal Fluency Direct may have been used dictate and transcribe this document. Field Machinist variances may occur. Despite proofreading, typographical errors may occur VISION TECHNICIAN * Herberth Rodgers MD - 02/24/2021 2:56 PM CST Vascular Surgery History and Physical Patient Name/MRN: Peg Son [id number] Treatment Team: Vascular Surgery Attending: Herberth Rodgers MD Today's Date: 02/24/2021 Admitting Service: Surgery Admitting [facility] [place] [facility] [place] [place] [facility] [place] Admit Date: 02/24/2021 Code Status: No Order Subjective Patient is a 70 y.o. female with chief complaint of end-stage renal disease. HPI: 70-year-old female with chronic kidney disease here to undergo creation left arm AV fistula possible graft. Prior H&P reviewed no changes Past Medical History: Diagnosis Date ??? Chronic kidney disease stage 4 ??? COPD (chronic obstructive pulmonary disease) (CMS/HCC) (HCC) ??? Depression ??? Dry skin ??? Food intolerance PEANUTS ??? GERD (gastroesophageal reflux disease) ??? Headache ??? History of chest pain 12/2020 Previous surgery cancelled R/T possible CP. Surveillance Analyst ruled out heart disease, testing negative. ??? [...] SURGERY Right 1980 lumpectomy ??? CERVICAL FUSION 2005 Per daughter unknown levels and how many fused. ??? EYE SURGERY CATARACTS ??? SPINAL FUSION Spinal Arthrodesis - (Added by TW Conv) ??? VAGINAL DELIVERY x2 Allergies Allergen Reactions ??? Sulfa (Sulfonamide Antibiotics) Hives Reaction: Hives, ??? Aspirin Swelling Reaction: Swelling, ??? Peanut Unknown Medications Prior to Admission Medication Sig Dispense Refill Last Dose ??? calcitRIOL (ROCALTROL) 0.25 mcg capsule Take 0.25 mcg by mouth every other day Past Week at Unknown time ??? cholecalciferol (VITAMIN D-3) 2000 unit tablet Take 2,000 Units by mouth daily Past Week at Unknown time ??? DULoxetine DR (CYMBALTA) 60 mg capsule Take 60 mg by mouth nightly 02/23/2021 at Unknown time ??? fexofenadine (DEVAUGHN) 180 mg tablet Take 180 mg by mouth daily as needed 0.5 tablet bid 02/23/2021 at Unknown time ??? furosemide (LASIX) 40 mg tablet Take 40 mg by mouth nightly 02/23/2021 at Unknown time ??? HYDROcodone-acetaminophen (NORCO) 5-325 mg per tablet Take 1 tablet by mouth every 6 hours 02/24/2021 at Unknown time ??? levothyroxine (Synthroid) 200 mcg tablet Take 200 mcg by mouth daily 02/24/2021 at Unknown time ??? multivitamin with minerals tablet Take 1 tablet by mouth 2 (two) times a day Past Week at Unknown time ??? pregabalin (LYRICA) 200 mg capsule Take 200 mg by mouth 2 (two) times a day 02/24/2021 at Unknown time ??? primidone (MYSOLINE) 50 mg tablet Take 50 mg by mouth nightly 02/23/2021 at Unknown time ??? propranoloL (INDERAL) 60 mg tablet Take 60 mg by mouth 2 times daily 02/24/2021 at Unknown time ??? rosuvastatin (Crestor) 10 mg tablet Take 10 mg by mouth daily 02/23/2021 at Unknown time ??? spironolactone (ALDACTONE) 50 mg tablet Take 50 mg by mouth daily Current Facility-Administered Medications Medication Dose Route Frequency Provider Last Rate Last Admin ??? ceFAZolin (ANCEF) 1 gram/10 mL in sterile water (premix) 3,000 mg 3,000 mg intravenous Once Herberth Rodgers MD ??? lidocaine (XYLOCAINE) 10 mg/mL (1 %) injection 2-10 mg 0.2-1 mL other Once PRN Efrain Coates MD ??? sodium chloride 0.9% flush 0.5-20 mL 0.5-20 mL intra-catheter PRN Efrain Coates MD ??? sodium chloride 0.9% infusion 30 mL/hr intravenous Continuous Efrain Coates MD 30 mL/hr at 02/24/21 1236 30 mL/hr at 02/24/21 1236 Family History Problem Relation Age of Onset ??? Pneumonia Mother ??? Cancer Father ??? Cancer Sister ??? Heart attack Brother Social History Tobacco Use ??? Smoking status: Former Smoker Packs/day: 2.00 Years: 40.00 Pack years: 80.00 Types: Cigarettes Quit date: 2016 Years since quittin.9 ??? Smokeless tobacco: Never Used Substance Use Topics ??? Alcohol use: Not on file Primary Care Physician: Gaudencio Miranda MD Primary Care Physician number: [phone] Review of Systems: Constitutional: Negative for activity change, chills, diaphoresis and fever. Eyes: No visual disturbances. ENT: Negative for sore throat, tooth ache, ear ache. Respiratory: Negative for cough and shortness of breath. Cardiovascular: Negative for chest pain, palpitations and leg swelling. Gastrointestinal: Negative for abdominal pain, constipation, diarrhea, nausea and vomiting. Genitourinary: Negative for flank pain. Musculoskeletal: Negative for arthralgias, back pain, edema. Skin: Negative for wounds or ulcerations Neurological: Negative for dizziness, syncope, facial asymmetry and speech difficulty. Objective Vitals: Arrival Vitals [02/24/21 1236] Temp 37.1 ??C (98.8 ??F) Pulse 71 Resp 18 BP 148/70 SpO2 96 % Temp src Temporal Heart Rate Source Monitor Patient Position BP Location FiO2 (%) Most Recent : Vitals: 02/24/21 1248 BP: Pulse: 71 Resp: Temp: 37.1 ??C (98.8 ??F) SpO2: No intake/output data recorded. I/O this shift: In: 1000 [I.V.:1000] Out: - Physical exam: Constitutional: Patient is oriented to person, place, and time. Pateint appears well-developed and well-nourished. No distress. Head: Normocephalic and atraumatic. Neck: Normal range of motion. Neck supple. Carotid bruit is not present. Cardiovascular: Normal rate and regular rhythm. Pulmonary/Chest: Effort normal and breath sounds normal. No accessory muscle usage. Abdominal: Soft. Bowel sounds are normal. She exhibits no distension and no mass. There is no tenderness. Extremities: Good brachial pulse Neurological: Patient is alert and oriented to person, place, and time. No cranial nerve deficit. Skin: Skin is warm and dry. No erythema. No pallor. Psychiatric: Patient has a normal mood and affect. Her behavior is normal. Lab/Radiology/Diagnostic Review: Assessment /Plan Principal Problem: End stage renal disease (CMS/HCC) ([facility]) Impression: End-stage renal disease Plan: Left arm AV fistula possible graft. The procedure and all risks have been explained. VISION TECHNICIAN documented in this encounter Consult Notes * Padmini Trinh MD - 02/25/2021 11:25 AM CSTAssociated Order(s): IP CONSULT TO PULMONOLOGY PULMONARY CONSULT NOTE Visit Date: 02/25/21 Consulting Physician: Dr. Quintana Reason for consult/Chief Complaint: Hypoxia Interval history: HPI: Patient is a 70 y.o. female w/ PMH ESRD, obesity, chart h/o COPD, HTN, cirrhosis, fibromyalgia, allergic rhinitis of who presented for AV fistula creation. Underwent surgery on 02/24. Postop note hypoxic so she was admitted. Currently she complains of some cough but attributes that to the postnasal drip/rhinitis. Denies any wheezing. Has chronic dyspnea on exertion. Says she was times COPD years ago but does not seem to be on any inhalers. Otherwise no major new acute issues other than cough and hypoxia. She does not have a formal diagnosis of FELISHA but she think she may have it based on her symptoms. Social History: 50 + pack year history, quit 2016. Denies any alcohol or drugs. No significant occupational exposures. Family History Problem Relation Age of Onset ??? Pneumonia Mother ??? Cancer Father ??? Cancer Sister ??? Heart attack Brother Review of Systems: Constitutional: Negative for chills. HENT: Negative for nosebleeds. Eyes: Negative for eye pain. Respiratory: Negative for hemoptysis Cardiovascular: Negative for palpitations. Gastrointestinal: Negative for blood in stool. Endocrine: Negative for polydipsia. Genitourinary: Negative for hematuria. Musculoskeletal: Negative for new joint swelling. Skin: Negative for rash. Neurological: Negative for seizures. Psychiatric/Behavioral: Negative for behavioral problems. OBJECTIVE: Physical Exam: Vitals: 02/25/21 0436 02/25/21 0700 02/25/21 0725 02/25/21 1100 BP: 116/67 119/73 122/76 BP Location: Right arm Right arm Right arm Patient Position: Sitting Sitting Pulse: 63 65 60 71 Resp: 18 18 20 Temp: 36.7 ??C (98 ??F) 37.1 ??C (98.8 ??F) 37.1 ??C (98.8 ??F) TempSrc: Oral Oral Oral SpO2: 92% 94% 93% Constitutional: In no acute distress, appears stated age, obese Integumentary: Warm, no new rash Head: Atraumatic, normocephalic Eyes: EOM's intact, no scleral icterus Ears, Nose, Mouth, and Throat: Ext. ears & nose normal Cardiovascular: RRR, no obvious friction rub Respiratory: Mostly clear, no wheezes Abdomen: Soft, nontender Musculoskeletal/Extremities: No Cyanosis or clubbing Neurological: No Aphasia, no new gross focal deficits Psychiatric: Alert, appropriate affect Data Review: BMP Lab Results Component Value Date GLUCOSE 138 02/25/2021 CALCIUM 9.8 02/25/2021 SODIUM 140 02/25/2021 POTASSIUM 5.1 (H) 02/25/2021 CO2 30 02/25/2021 BUNSER 28 (H) 02/25/2021 CREATININE 2.40 (H) 02/25/2021 CBC: Lab Results Component Value Date WBC 8.3 02/25/2021 RBC 4.77 02/25/2021 HGB 14.8 02/25/2021 HCT 46.7 (H) 02/25/2021 MCV 97.9 (H) 02/25/2021 MCH 31.0 02/25/2021 MCHC 31.7 (L) 02/25/2021 RDWCV 13.9 02/25/2021 RDWSD 49.9 (H) 02/25/2021 MPV 11.6 02/25/2021 NRBCABS 0.00 02/25/[address]-scan of the chest shows right lower lobe consolidation/opacity as well as some other smaller pulmonary nodules bilaterally. ASSESSMENT 1. respiratory failure with hypoxia o Acute vs chronic? Probably multifactorial, related to COPD, restriction/obese hypoventilation, atelectasis, etc 2. Acute r on chronic respiratory failure hypercapnia o Due to hypoventilation and COPD. o Based on ABG, baseline pCO2 is probably in the 50s 3. COPD o No PFTs available but has significant smoking history in symptoms. 4. Pulmonary nodules o Has a large right lower lobe opacity as well as some other smaller nodules. o This will need follow-up outpatient imaging 5. Seasonal Allergic rhinitis o 6. Probable restrictive lung disease and obesity hypoventilation o 7. Probable FELISHA 8. CKD 5/ESRD 9. Obesity 10. H/o tobacco abuse o 50 pack year history, quit in 2016 PLAN ??? Start bronchodilators and nebulizers ??? Encourage incentive spirometry and aggressive pulmonary hygiene:PT/OT, get patient out of bed to chair, ambulate, ect.. ? ? I weaned her to room air, titrate oxygen for goal SpO2 > 90% ??? Will benefit from outpatient sleep study ??? Continue Lasix, Keep euvolemic ??? Try to minimize naracotics ??? DVT prophylaxis: Ambulate, pharmaceutical when okay with surgery ??? Counseled/discussed on diet and exercise to improve cardiac and muscular conditioning and facilitate weight loss. ??? If she can remain on room air most of today, she should be okay to discharge. Otherwise will re-evaluate tomorrow and if not able to wean to room air, Likely have to discharge with home oxygen Padmini Trinh MD There may be syntax/grammatical errors in this note due to the use of voice recognition software. VISION TECHNICIAN documented in this encounter Nursing Notes * Ana Power RN - 02/25/2021 5:51 AM CST Patient AOx4, on 3L nc. Vitals stable, received prn Dunlo for back pain. Abnormal abg- results reported to Dr. Quintana. Left arm nwb after av fistula creation, +1 radial pulse, minimal pain. Historyof frequent falls at home my knees give out . PT and OT to evaluate. Distended abdomen, says she has difficulty voiding completely. Pt also says she she has a hard time swallowing sometimes. Passed bedside swallow eval. VISION TECHNICIAN * Ana Marlow RN - 02/24/2021 6:43 PM CST Pt's 02 saturations at rest on room air drop as low as 65% but steadily 75%. Pre-op O2 saturation charted as 96% on room air. Steady pleth wave on VS machine. O2 sat taken in many different areas with the same results. Spoke with Dr. Rodgers and asked if we could consult hospitalist for eval and heagreed. Hospitalist paged. VISION TECHNICIAN documented in this encounter Miscellaneous Notes * Plan of Care - Mary Fry RN - 02/27/2021 4:53 PM CST Problem: Facility Isolation Psychosocial Wellbeing Description: Resident at risk for psychosocial wellbeing concern related to medical and visitation restrictions secondary to COVID-19 Goal: Resident will not show a decline in psychosocial wellbeing or experience adverse effects through next review Description: 1. Educate resident, family, resident representatives, staff and visitors of COVID-19 signs and symptoms and precautions 2. Provide emotional support and allow resident to express feelings, fears, and concerns 3. Observe for psychosocial and mental status changes, document and update social media editor and MD as needed 4. Provide in room activities of choice if indicated 5. Provide alternative methods of communication with family/visitors 6. Assure resident, family, and resident representatives facility is taking precautions to keep them safe 7. Update resident, family, and resident representatives as needed Outcome: Adequate for Discharge Problem: COVID-19 Prevention and Monitoring Description: Resident requires monitoring and prevention as they relate to COVID-19 Goal: Resident will show no signs or symptoms of COVID-19 Description: 1. Monitor frequently for potential symptoms including fever and respiratory symptoms 2. Educate resident, family, resident representatives, staff and visitors of COVID-19 signs and symptoms and precautions 3. Remind residents to report if they feel feverish or have symptoms of respiratory infection 4. Reinforce no visitor policy and non-essential health care personnel policy, except for certain compassionate care situations 5. When visitors are necessary and meet exception to no visitor policy, limit to a specified room, encourage social distancing with no handshakes, physical contact, and remaining 6 feet apart 6. Update resident, family, and resident representatives as needed Outcome: Adequate for Discharge Problem: Health Behavior: Goal: Understanding of discharge needs will improve Outcome: Adequate for Discharge Problem: Lack of Knowledge: Goal: Ability to state ways to decrease the risk of falls will improve Outcome: Adequate for Discharge Problem: Safety: Goal: Will remain free from falls Outcome: Adequate for Discharge Goal: Will remain free from injury from falls Outcome: Adequate for Discharge Goal: Will remain free from falls and injury in home environment Outcome: Adequate for Discharge Problem: Safety: Goal: Will remain free from falls Outcome: Adequate for Discharge Goal: Will remain free from injury from falls Outcome: Adequate for Discharge Goal: Will remain free from falls and injury in home environment Outcome: Adequate for Discharge Problem: Activity: Goal: Mobility will improve Outcome: Adequate for Discharge Problem: Lack of Knowledge: Goal: Understanding of ways to prevent future skin breakdown will improve Outcome: Adequate for Discharge Goal: Ability to identify appropriate dietary choices will improve Outcome: Adequate for Discharge Problem: Nutritional: Goal: Dietary intake will improve Outcome: Adequate for Discharge Goal: Ability to maintain a balanced intake and output will improve Outcome: Adequate for Discharge Problem: Skin Integrity: Goal: Risk for impaired skin integrity will decrease Outcome: Adequate for Discharge Goal: Ability to demonstrate warm and dry skin will improve Outcome: Adequate for Discharge Goal: Circulation will improve to fullest extent possible Outcome: Adequate for Discharge Goals: Clinical Goals for the Shift: fall prevention, pain management VISION TECHNICIAN * [facility] Note - Elizabeth Arnold MSW - 02/27/2021 4:10 PM CST Images from the original note were not included. Patient Information: Home O2 last 48 hours Default Flowsheet Data (last 48 hours) Home O2 Assessment Row Name 02/27/21 1352 Resting Information Resting HR. 87 bpm 02/27/21 1605 Resting SPO2 88 % Placed pt on 1L NC 02/27/21 1605 Oxygen Setting 21 02/27/21 1605 Delivery Device RA 02/27/21 1605 Ambulation Trials to Assess Desaturation to 88% Activity 1: Ambulated (feet) 30 feet 02/27/21 1605 Oxygen Setting #1 1L NC 02/27/21 1605 SPO2 (%) #1 88 % Placed pt on 2L NC 02/27/21 1605 Activity 2: Ambulated (feet) 30 feet 02/27/21 1605 Oxygen Setting #2 2L NC 02/27/21 1605 SPO2 (%) #2 90 % 02/27/21 1605 Post Ambulation Assessment HR Post Assessment 110 bpm 02/27/21 1605 RR Post Assessment 24 breaths/m 02/27/21 1605 Post Assessment Recommendation Pt required 1L NC at rest and 2L NC w/ activity 02/27/21 1605 $ Oximetry Multiple Yes 02/27/21 1603 VISION TECHNICIAN * Plan of Care - Ana Power RN - 02/27/2021 6:15 AM CST Problem: Health Behavior: Goal: Understanding of discharge needs will improve Outcome: Progressing Problem: Safety: Goal: Will remain free from falls Outcome: Progressing Problem: Activity: Goal: Mobility will improve Outcome: Progressing VISION TECHNICIAN * Plan of Care - Mary Fry RN - 02/26/2021 12:25 PM CST Problem: Facility Isolation Psychosocial Wellbeing Description: Resident at risk for psychosocial wellbeing concern related to medical and visitation restrictions secondary to COVID-19 Goal: Resident will not show a decline in psychosocial wellbeing or experience adverse effects through next review Description: 1. Educate resident, family, resident representatives, staff and visitors of COVID-19 signs and symptoms and precautions 2. Provide emotional support and allow resident to express feelings, fears, and concerns 3. Observe for psychosocial and mental status changes, document and update social media editor and MD as needed 4. Provide in room activities of choice if indicated 5. Provide alternative methods of communication with family/visitors 6. Assure resident, family, and resident representatives facility is taking precautions to keep them safe 7. Update resident, family, and resident representatives as needed Outcome: Progressing Problem: COVID-19 Prevention and Monitoring Description: Resident requires monitoring and prevention as they relate to COVID-19 Goal: Resident will show no signs or symptoms of COVID-19 Description: 1. Monitor frequently for potential symptoms including fever and respiratory symptoms 2. Educate resident, family, resident representatives, staff and visitors of COVID-19 signs and symptoms and precautions 3. Remind residents to report if they feel feverish or have symptoms of respiratory infection 4. Reinforce no visitor policy and non-essential health care personnel policy, except for certain compassionate care situations 5. When visitors are necessary and meet exception to no visitor policy, limit to a specified room, encourage social distancing with no handshakes, physical contact, and remaining 6 feet apart 6. Update resident, family, and resident representatives as needed Outcome: Progressing Problem: Health Behavior: Goal: Understanding of discharge needs will improve Outcome: Progressing Problem: Lack of Knowledge: Goal: Ability to state ways to decrease the risk of falls will improve Outcome: Progressing Problem: Safety: Goal: Will remain free from falls Outcome: Progressing Goal: Will remain free from injury from falls Outcome: Progressing Goal: Will remain free from falls and injury in home environment Outcome: Progressing Problem: Skin Integrity: Goal: Risk for impaired skin integrity will decrease Outcome: Progressing Goal: Ability to demonstrate warm and dry skin will improve Outcome: Progressing Goal: Circulation will improve to fullest extent possible Outcome: Progressing Problem: Nutritional: Goal: Dietary intake will improve Outcome: Progressing Goal: Ability to maintain a balanced intake and output will improve Outcome: Progressing Goals: Clinical Goals for the Shift: fall prevention, pain management VISION TECHNICIAN * Plan of Care - Ana Power RN - 02/26/2021 4:54 AM CST Problem: Health Behavior: Goal: Understanding of discharge needs will improve Outcome: Progressing Problem: Safety: Goal: Will remain free from falls Outcome: Progressing Problem: Activity: Goal: Mobility will improve Outcome: Progressing Patient remains stable, vitals wdl, on 2L O2. Weak, up with 2 assist to pivot to chair. Reports some tenderness at AV fistula site. Decreased urine output. Continuing to monitor. Weaned to 1L at 5am. VISION TECHNICIAN VISION TECHNICIAN * Plan of Care - Marion Mora RN - 02/25/2021 4:31 PM TELEVISION TECHNICIAN Problem: Facility Isolation Psychosocial Wellbeing Description: Resident at risk for psychosocial wellbeing concern related to medical and visitation restrictions secondary to COVID-19 Goal: Resident will not show a decline in psychosocial wellbeing or experience adverse effects through next review Description: 1. Educate resident, family, resident representatives, staff and visitors of COVID-19 signs and symptoms and precautions 2. Provide emotional support and allow resident to express feelings, fears, and concerns 3. Observe for psychosocial and mental status changes, document and update social media editor and MD as needed 4. Provide in room activities of choice if indicated 5. Provide alternative methods of communication with family/visitors 6. Assure resident, family, and resident representatives facility is taking precautions to keep them safe 7. Update resident, family, and resident representatives as needed Outcome: Progressing Problem: COVID-19 Prevention and Monitoring Description: Resident requires monitoring and prevention as they relate to COVID-19 Goal: Resident will show no signs or symptoms of COVID-19 Description: 1. Monitor frequently for potential symptoms including fever and respiratory symptoms 2. Educate resident, family, resident representatives, staff and visitors of COVID-19 signs and symptoms and precautions 3. Remind residents to report if they feel feverish or have symptoms of respiratory infection 4. Reinforce no visitor policy and non-essential health care personnel policy, except for certain compassionate care situations 5. When visitors are necessary and meet exception to no visitor policy, limit to a specified room, encourage social distancing with no handshakes, physical contact, and remaining 6 feet apart 6. Update resident, family, and resident representatives as needed Outcome: Progressing Problem: Health Behavior: Goal: Understanding of discharge needs will improve Outcome: Progressing Problem: Lack of Knowledge: Goal: Ability to state ways to decrease the risk of falls will improve Outcome: Progressing Problem: Safety: Goal: Will remain free from falls Outcome: Progressing Goal: Will remain free from injury from falls Outcome: Progressing Goal: Will remain free from falls and injury in home environment Outcome: Progressing Goals: Clinical Goals for the Shift: fall prevention, pain management Summary: No falls noted. Patient reports pain in the lower back, medicated accordingly. Dressing onleft arm is dry and intact. Attempting to wean patient to room air. Patient currently on 2L/min vianasal cannula. VISION TECHNICIAN * Significant Event - Mirian Deras RRT - 02/24/2021 11:38 PM CST Notified RN Ana Waldron of critical results VISION TECHNICIAN * Perioperative Nursing Note - Diana Dolan RN - 02/24/2021 8:20 PM TELEVISION TECHNICIAN Pt tx to inpatient floor. Bedside shift report given to RN VISION TECHNICIAN * Perioperative Nursing Note - Radha Florez RN - 02/24/2021 5:35 PM TELEVISION TECHNICIAN Pt placed in recliner at this time. Sats drop intot the 70's on RA, pt was placed on 3L per NC, given incentive spirometer and placed in recliner. Sats on 3L per NC is 97%. VISION TECHNICIAN * Op Note - Herberth Rodgers MD - 02/24/2021 1:15 PM CST Operative Note Attending Surgeon: Herberth Rodgers MD Co-Surgeon: None Surgical Assistants: None Date of Surgery: 02/24/2021 Preoperative Diagnosis: End-stage renal disease Postoperative Diagnosis: Same Procedure Performed: 1. Creation of left brachiocephalic AV fistula 2. Ligation and division large left cephalic vein AV fistula tributary Anesthesia: General Estimated Blood Loss: 20 cc Indications: 70-year-old female chronic kidney disease stage 5 progressing to end-stage renal disease eventuallywill need hemodialysis. The above-mentioned procedures recommended for dialysis will be required. The procedure its risks were explained. She understood agreed to proceed Operative Findings: Patient brought to the operating room placed supine on the table. General Endo trachea anesthesia was induced. Left arm chest prepped and draped in the normal sterile fashion preoperative antibioticswere administered and time-out was performed. Bedside ultrasound was then used to map the cephalic vein which appeared of good size and quality for use and autogenous AV fistula creation. Patient hada large tributary several cm above the antecubital fossa this too was marked as was the brachial artery. Small transverse incision was made below the antecubital fossa taken down through the skin subcutaneous tissues with electrocautery. Cephalic vein was identified it was of adequate size and quality was sharply carefully dissected free from its surrounding tissues. The brachial artery was easily palpable more medially longitudinal incision was then made the overlying fascia with the Metzenbaum scissors the artery was identified dissected free from its surrounding tissues and encircled vessel loops. The vein was then ligated swung over spatula did an end-to-side anastomosis was then carried out with a running 6 0 Prolene. Care was taken not to twist or kink the vein and ensure was not under too much tension. Prior to the anastomosis being completed the artery and vein were appropriate antegrade retrograde flushed rinsed with heparinized saline anastomosis was completed and flow was then initiated through the outflow cephalic vein in the newly created fistula. Vein dilated nicely had a good palpable thrill. Flow was then restored antegrade to the hand. Attention was then directed to the mid upper arm longitude incision was made over the marked large tributaries taken down through skin subcutaneous tissues with electrocautery. Sharp dissection identified a large tributary and the cephalic vein the tributary was dissected free doubly ligated with 2-0 silk ties and hemoclips and divided. With that the incisions were closed with interrupted 3-0 nylons in a vertical mattress configuration followed by sterile occlusive dressings. Patient tolerated procedure well transferred recovery in stable condition. Intraoperative Fluids: See Anesthesia records Specimens: None Implants: None Blood/Blood Products Transfused: See Anesthesia records Complications: None Condition on Discharge from the operating room was Stable Herberth Rodgers MD Date: 02/24/2021 Time: 4:21 PM This note was transcribed using the Eventable voice recognition system without human b2b outside sales representative. In an effort to expedite patient care, this report has not been adjusted for typographical, grammatical, and syntax by a trained medical consultant. VISION TECHNICIAN * Pre-Procedure Instructions - Eduarda Terry RN - 02/22/2021 12:40 PM TELEVISION TECHNICIAN We are pleased that you and your doctor have chosen [facility] for your surgery. We hope that the following information will help make your visit a pleasant one. Surgery Date: 02/24/2021. Please arrive at 11:30 am unless otherwise instructed by your surgeon Before your surgery: ?? Notify your doctor of ANY change in your health such as a cold, sore throat, fever, any infection or a change in the problem for which you are having your surgery. ?? Follow any instructions given to you by your doctor or surgeon. Hold the following 7 days prior to surgery. Last dose: NOW ?? All herbal supplements & vitamins ?? Aspirin, Aleve, Advil, Motrin, Ibuprofen, or other similar medications (Tylenol is okay). 12 hours before your surgery: ?? No smoking or alcoholic drinks. Night before your surgery: ?? Do not eat anything after midnight. ?? May have clear liquids until 9 am on 02/24/2021 (Black coffee, black tea, water, apple/grape juice, white soda, Gatorade). ?? Shower evening of 02/23/2021, or morning of 02/24/2021. Use anti-bacterial soap if available. Washhair as usual. After showering, do not put anything on your skin like lotion, powder, deodorant, perfume/cologne. Day of surgery: ?? Bring any new prescriptions that were not reviewed at pre-testing appointment/screening call. ?? Perform oral care/brush teeth morning of 02/24/2021. ?? Do not swallow any water, or oral cleansing products (toothpaste, mouthwash) when you brush yourteeth. ?? ONLY take these pills with a tiny sip of water. Cymbalta Hydrocodone (if needed) Levothyroxine Pregabalin Mysoline Inderal ?? Wear comfortable clothes that will not be tight in the area of your surgery. ?? Leave all valuables and jewelry (including all body piercing jewelry) at home. ?? If you use a CPAP machine, please bring it with you to wear after your surgery. ?? Please bring your a photo ID and insurance cards with you. ?? Check in at the Registration Desk. ?? If you are 17 years old or younger, a parent or guardian must come with you. After your Outpatient Surgery: ?? You must have a responsible adult to drive you home, you will not be allowed to drive or take a cab home. ?? We recommend you have someone stay with you for 24 hours after your surgery. What to bring if you are spending the night with us: ?? Bring toiletry items such as: robe, slippers, toothbrush, toothpaste, brush or comb. ?? Bring contact lens, hearing aids, glass cases and denture container if you use any of these items. ?? The hospital will provide you with a gown. COVID-19 VACCINATION CARD: If you have been vaccinated for COVID-19, please bring a copy of your card with you to surgical appointment. COVID-19 SWAB: Swab complete. Please continue to quarantine until after surgical procedure. Questions or concerns: ?? If you have any questions or concerns regarding your procedure, contact your surgeon as soon as possible. ?? If you have questions regarding your Pre-Admission Testing, please call us. We can be reached [phone]. [email or web address] VISION TECHNICIAN documented in this encounter Plan of Treatment Not on file documented as of this encounter Procedures Procedure Name Priority Date/Time Associated Diagnosis Comments HOME O2 EVAL (DESATURATION SCREEN) Routine 02/27/2021 1:52 PM TELEVISION TECHNICIAN EGFR Routine 02/27/2021 4:40 AM TELEVISION TECHNICIAN DIFFERENTIAL AUTO Routine 02/27/2021 4:4 0 AM TELEVISION TECHNICIAN CBC WITH AUTO DIFFERENTIAL Routine 02/27/2021 4:40 AM TELEVISION TECHNICIAN PHOSPHORUS Routine 02/27/2021 4:40 AM TELEVISION TECHNICIAN MAGNESIUM Routine 02/27/2021 4:40 AM TELEVISION TECHNICIAN COMPREHENSIVE METABOLIC PANEL Routine 02/27/2021 4:40 AM TELEVISION TECHNICIAN EGFR Routine 02/26/2021 5:19 AM TELEVISION TECHNICIAN DIFFERENTIAL AUTO Routine 02/26/2021 5:1 9 AM TELEVISION TECHNICIAN CBC WITH AUTO DIFFERENTIAL Routine 02/26/2021 5:19 AM TELEVISION TECHNICIAN PHOSPHORUS Routine 02/26/2021 5:19 AM TELEVISION TECHNICIAN MAGNESIUM Routine 02/26/2021 5:19 AM TELEVISION TECHNICIAN COMPREHENSIVE METABOLIC PANEL Routine 02/26/2021 5:19 AM TELEVISION TECHNICIAN US VEIN DUPLEX LOWER EXTREMITY BILATERAL COMPLETE IP Routine 02/25/2021 2:27 PM TELEVISION TECHNICIAN XR CHEST 1 VIEW Routine 02/25/2021 1:42 PM TELEVISION TECHNICIAN NM PULMONARY PERFUSION IMAGING IP Routine 02/25/2021 1:41 PM TELEVISION TECHNICIAN ECG 12-LEAD Routine 02/25/2021 7:49 AM TELEVISION TECHNICIAN EGFR Routine 02/25/2021 5:31 AM TELEVISION TECHNICIAN DIFFERENTIAL AUTO Routine 02/25/2021 5:3 1 AM TELEVISION TECHNICIAN PRO B-TYPE NATRIURETIC PEPTIDE Routine 02/25/2021 5:31 AM TELEVISION TECHNICIAN CBC WITH AUTO DIFFERENTIAL Routine 02/25/2021 5:31 AM TELEVISION TECHNICIAN PHOSPHORUS Routine 02/25/2021 5:31 AM TELEVISION TECHNICIAN MAGNESIUM Routine 02/25/2021 5:31 AM TELEVISION TECHNICIAN COMPREHENSIVE METABOLIC PANEL Routine 02/25/2021 5:[address] CHEST WO CONTRAST IP Routine 02/24/2021 11:10 PM TELEVISION TECHNICIAN BLOOD GAS, ARTERIAL Timed 02/24/2021 1 0:34 PM TELEVISION TECHNICIAN CREATION ARTERIOVENOUS FISTULA - ARM 02/24/2021 3:04 PM TELEVISION TECHNICIAN End stage renal disease (CMS/HCC) (HCC) EGFR STAT 02/24/2021 12:32 PM TELEVISION TECHNICIAN DIFFERENTIAL AUTO STAT 02/24/2021 12: 32 PM TELEVISION TECHNICIAN CBC WITH AUTO DIFFERENTIAL STAT 02/24/2021 12:32 PM TELEVISION TECHNICIAN APTT STAT 02/24/2021 12:32 PM TELEVISION TECHNICIAN PROTIME-INR STAT 02/24/2021 12:32 PM TELEVISION TECHNICIAN BASIC METABOLIC PANEL STAT 02/24/2021 12:32 PM TELEVISION TECHNICIAN documented in this encounter Results * eGFR (02/27/2021 4:40 AM TELEVISION TECHNICIAN) eGFR 19 mL/min/1.7 3 m2 SIMON ELIZABETH Comment: Interpretive Data Reference Interval Normal ?>/= [...] interpretive data was last reviewed 2020 Blood 02/27/2021 4:40 AM TELEVISION TECHNICIAN 02/27/2021 5:36 AM TELEVISION TECHNICIAN us Kiera Quintana MD LAB BLOOD ORDERABLE S Final Result [facility] [address] [facility] Department [place] [address] * (ABNORMAL) Differential, auto (02/27/2021 4:40 AM TELEVISION TECHNICIAN) Pathologist [facility] [place] Neutrophil abs 2.8 1.7 - 6.5 K/cumm [facility] Imm gran abs 0.0 0.0 - 0.1 K/cumm [facility] Lymphocyte abs 2.0 0.8 - 3.3 K/cumm [facility] Monocyte abs 0.9(H) 0.2 - 0.8 K/cumm [facility] Eosinophil abs 0.2 0.0 - 0.5 K/cumm [facility] Basophil abs 0.0 0.0 - 0.1 K/cumm [facility] Neutrophil pct 47.5 % [facility] Comment: Interpretive Data Percent cell count reference ranges are not reported, since discordance with absolute values may lead to misinterpretation of CBC data. Current Interpretive Data was last revised on 2017. Imm gran pct 0.2 % [facility] Comment: Interpretive Data Percent cell count reference ranges are not reported, since discordance with absolute values may lead to misinterpretation of CBC data. Current Interpretive Data was last revised on 2017. Lymphocyte pct 33.2 % [facility] Comment: Interpretive Data Percent cell count reference ranges are not reported, since discordance with absolute values may lead to misinterpretation of CBC data. Current Interpretive Data was last revised on 2017. Monocyte pct 14.5 % [facility] Comment: Interpretive Data Percent cell count reference ranges are not reported, since discordance with absolute values may lead to misinterpretation of CBC data. Current Interpretive Data was last revised on 2017. Eosinophil pct 3.9 % [facility] Comment: Interpretive Data Percent cell count reference ranges are not reported, since discordance with absolute values may lead to misinterpretation of CBC data. Current Interpretive Data was last revised on 2017. Basophil pct 0.7 % [facility] Comment: Interpretive Data Percent cell count reference ranges are not reported, since discordance with absolute values may lead to misinterpretation of CBC data. Current Interpretive Data was last revised on 2017. Blood 02/27/2021 4:40 AM TELEVISION TECHNICIAN 02/27/2021 5:36 AM TELEVISION TECHNICIAN us Kiera Quintana MD LAB BLOOD ORDERABLE S Final Result [facility] [address] [facility] Department [place] [address] * (ABNORMAL) CBC with auto differential (02/27/2021 4:40 AM TELEVISION TECHNICIAN) WBC 5.9 3.8 - 9.9 K/cumm [facility] Hgb 13.3 11.9 - 15.5 g/dL [facility] Hct 42.4 35.6 - 45.5 % [facility] Plt 156 150 - 400 K/cumm [facility] MPV 11.5 9.1 - 12.3 fL [facility] RBC 4.30 3.90 - 5.20 M/cumm [facility] MCV 98.6(H) 81.3 - 96.4 fL [facility] MCH 30.9 27.1 - 33.3 pg [facility] MCHC 31.4(L) 32.3 - 35.7 g/dL [facility] RDW CV 14.3 11.1 - 14.9 % [facility] RDW SD 51.8(H) 35.7 - 48.1 fL [facility] NRBC abs 0.00 0.00 - 0.01 K/cumm [facility] Blood 02/27/2021 4:40 AM TELEVISION TECHNICIAN 02/27/2021 5:36 AM TELEVISION TECHNICIAN us Kiera Quintana MD LAB BLOOD ORDERABLE S Final Result Performing Organization Address City/[facility]/ZIP Co de Phone Number [address] [employer] [place] [address] * Phosphorus (02/27/2021 4:40 AM TELEVISION TECHNICIAN) Phosphorus, pl 4.5 2.3 - 4.5 mg/dL [facility] Blood 02/27/2021 4:40 AM TELEVISION TECHNICIAN 02/27/2021 5:36 AM TELEVISION TECHNICIAN us Kiera Quintana MD LAB BLOOD ORDERABLE S Final Result [address] [place] [address] * Magnesium (02/27/2021 4:40 AM TELEVISION TECHNICIAN) Magnesium 2.1 1.4 - 2.5 mg/dL [facility] Blood 02/27/2021 4:40 AM TELEVISION TECHNICIAN 02/27/2021 5:36 AM TELEVISION TECHNICIAN us Kiera Quintana MD LAB BLOOD ORDERABLE S Final Result Performing Organization Address City/[facility]/ZIP Co de Phone Number [facility] [address] [facility] Department [place] [address] * (ABNORMAL) Comprehensive metabolic panel (02/27/2021 4:40 AM TELEVISION TECHNICIAN) Sodium 138 135 - 145 mmol/L [facility] Potassium, pl 4.0 3.3 - 4.9 mmol/L [facility] Chloride 98 97 - 110 mmol/L [facility] CO2 30 22 - 32 mmol/L [facility] Anion gap 10 2 - 15 mmol/L [facility] BUN 40(H) 8 - 25 mg/dL [facility] Creatinine 2.50(H) 0.60 - 1.10 mg/dL [facility] Glucose 112 70 - 199 mg/dL [facility] Comment: Interpretive Data Fasting glucose >/= 126 [...] interpretive data was last revised 2017. Calcium 9.0 8.5 - 10.3 mg/dL [facility] Bilirubin, total 0.3 0.1 - 1.2 mg/dL [facility] Protein, pl 6.6 6.5 - 8.5 g/dL [facility] Albumin 3.7 3.5 - 5.0 g/dL [facility] Alk phos 86 40 - 130 Units/L [facility] ALT 6(L) 7 - 45 Units/L [facility] AST 25 10 - 45 Units/L [facility] Blood 02/27/2021 4:40 AM TELEVISION TECHNICIAN 02/27/2021 5:36 AM TELEVISION TECHNICIAN Kiera Quintana MD LAB BLOOD ORDERABLE S Final Result [facility] [address] [facility] Department [place] [address] * eGFR (02/26/2021 5:19 AM TELEVISION TECHNICIAN) eGFR 16 mL/min/1.7 3 m2 SIMON Comment: [...] interpretive data was last reviewed 2020 Blood 02/26/2021 5:19 AM TELEVISION TECHNICIAN 02/26/2021 5:39 AM TELEVISION TECHNICIAN us Kiera Quintana MD LAB BLOOD ORDERABLE S Final Result [facility] [address] [facility] Department [place] [address] * Differential, auto (02/26/2021 5:19 AM TELEVISION TECHNICIAN) [facility] Neutrophil abs 3.1 1.7 - 6.5 K/cumm SIMON Imm gran abs 0.0 0.0 - 0.1 K/cumm [facility] Lymphocyte abs 2.1 0.8 - 3.3 K/cumm [facility] Monocyte abs 0.8 0.2 - 0.8 K/cumm [facility] Eosinophil abs 0.1 0.0 - 0.5 K/cumm [facility] Basophil abs 0.0 0.0 - 0.1 K/cumm [facility] Neutrophil pct 50.3 % [facility] Comment: Interpretive Data Percent cell count reference ranges are not reported, since discordance with absolute values may lead to misinterpretation of CBC data. Current Interpretive Data was last revised on 2017. Imm gran pct 0.2 % [facility] Comment: Interpretive Data Percent cell count reference ranges are not reported, since discordance with absolute values may lead to misinterpretation of CBC data. Current Interpretive Data was last revised on 2017. Lymphocyte pct 34.7 % [facility] Comment: Interpretive Data Percent cell count reference ranges are not reported, since discordance with absolute values may lead to misinterpretation of CBC data. Current Interpretive Data was last revised on 2017. Monocyte pct 13.2 % [facility] Comment: Interpretive Data Percent cell count reference ranges are not reported, since discordance with absolute values may lead to misinterpretation of CBC data. Current Interpretive Data was last revised on 2017. Eosinophil pct 1.3 % [facility] Comment: Interpretive Data Percent cell count reference ranges are not reported, since discordance with absolute values may lead to misinterpretation of CBC data. Current Interpretive Data was last revised on 2017. Basophil pct 0.3 % [facility] Comment: Interpretive Data Percent cell count reference ranges are not reported, since discordance with absolute values may lead to misinterpretation of CBC data. Current Interpretive Data was last revised on 2017. Blood 02/26/2021 5:19 AM TELEVISION TECHNICIAN 02/26/2021 5:39 AM TELEVISION TECHNICIAN us Kiera Quintana MD LAB BLOOD ORDERABLE S Final Result [facility] [address] [facility] Department [place] [address] * (ABNORMAL) CBC with auto differential (02/26/2021 5:19 AM TELEVISION TECHNICIAN) [facility] WBC 6.1 3.8 - 9.9 K/cumm [facility] Hgb 13.0 11.9 - 15.5 g/dL [facility] Hct 42.1 35.6 - 45.5 % [facility] Plt 144(L) 150 - 400 K/cumm [facility] MPV 11.0 9.1 - 12.3 fL [facility] RBC 4.28 3.90 - 5.20 M/cumm [facility] MCV 98.4(H) 81.3 - 96.4 fL [facility] MCH 30.4 27.1 - 33.3 pg [facility] MCHC 30.9(L) 32.3 - 35.7 g/dL [facility] RDW CV 14.4 11.1 - 14.9 % [facility] RDW SD 52.1(H) 35.7 - 48.1 fL [facility] NRBC abs 0.00 0.00 - 0.01 K/cumm [facility] Blood 02/26/2021 5:19 AM TELEVISION TECHNICIAN 02/26/2021 5:39 AM TELEVISION TECHNICIAN Kiera Quintana MD LAB BLOOD ORDERABLE S Final Result Performing Organization Address [facility]/[employer] Co de Phone Number [address] [employer] [place] [address] * Phosphorus (02/26/2021 5:19 AM TELEVISION TECHNICIAN) [facility] Phosphorus, pl 4.2 2.3 - 4.5 mg/dL [facility] Blood 02/26/2021 5:19 AM TELEVISION TECHNICIAN 02/26/2021 5:39 AM TELEVISION TECHNICIAN Kiera Quintana MD LAB BLOOD ORDERABLE S Final Result Performing Organization Address [facility] Co de Phone Number [address] [place] [address] * Magnesium (02/26/2021 5:19 AM TELEVISION TECHNICIAN) Pathologist [facility] [place] Magnesium 2.3 1.4 - 2.5 mg/dL [facility] Blood 02/26/2021 5:19 AM TELEVISION TECHNICIAN 02/26/2021 5:39 AM TELEVISION TECHNICIAN Kiera Quintana MD LAB BLOOD ORDERABLE S Final Result [facility] [address] [facility] Department [place] [address] * (ABNORMAL) Comprehensive metabolic panel (02/26/2021 5:19 AM TELEVISION TECHNICIAN) [facility] Sodium 142 135 - 145 mmol/L [facility] Potassium, pl 4.3 3.3 - 4.9 mmol/L [facility] Chloride 101 97 - 110 mmol/L [facility] CO2 31 22 - 32 mmol/L [facility] Anion gap 10 2 - 15 mmol/L [facility] BUN 37(H) 8 - 25 mg/dL [facility] Creatinine 2.90(H) 0.60 - 1.10 mg/dL [facility] Glucose 103 70 - 199 mg/dL [facility] Comment: Interpretive Data Fasting glucose >/= 126 [...] interpretive data was last revised 2017. Calcium 9.3 8.5 - 10.3 mg/dL [facility] Bilirubin, total 0.3 0.1 - 1.2 mg/dL [facility] Protein, pl 6.2(L) 6.5 - 8.5 g/dL [facility] Albumin 3.6 3.5 - 5.0 g/dL [facility] Alk phos 83 40 - 130 Units/L [facility] ALT 10 7 - 45 Units/L [facility] AST 27 10 - 45 Units/L [facility] Blood 02/26/2021 5:19 AM TELEVISION TECHNICIAN 02/26/2021 5:39 AM TELEVISION TECHNICIAN Kiera Quintana MD LAB BLOOD ORDERABLE S Final Result [facility] [address] [facility] Department [place] [address] * US Vein Duplex Lower Extremity Bilateral Complete (02/25/2021 2:27 PM TELEVISION TECHNICIAN) Anatomical Region Laterality Modality Vascular Bilateral Ultrasound 02/25/2021 Narrative 02/28/2021 2:45 PM TELEVISION TECHNICIAN [employer] Job ID: [id number] [employer] Document ID: [id number] Dictated date/time: [id number] REASON FOR STUDY Respiratory failure. No thrombus seen in the common femoral, superficial femoral, popliteal, posterior peroneal or greater saphenous veins bilaterally. IMPRESSION No evidence of deep venous thrombosis in either lower extremity. JOB ID/VF JOB ID: ??[id number] Cece Veras MD IMG US PROCEDURES Final Result * XR Chest 1 View (02/25/2021 1:42 PM TELEVISION TECHNICIAN) Anatomical Region Laterality Modality Body, Chest N/A Computed Radiogr aphy 02/25/2021 1:49 PM TELEVISION TECHNICIAN Narrative 02/25/2021 1:50 PM TELEVISION TECHNICIAN EXAM DESCRIPTION: ?? XR CHEST 1 VIEW REASON FOR STUDY: ?? PE suspected, low pretest prob, no D-dimer result ?? Single view cxr s/p nuc med study today, sob and cough over 2 days ?? TECHNIQUE: ?? Frontal ??radiographic view of the chest acquired. COMPARISON: None. ??Chest CT 02/24/2021. FINDINGS: LUNGS/PLEURA: ?? Small area of opacity in the right base corresponds to the focal opacity on the chest CT. ??The right upper lung in the left lung are clear. ??No pleural effusion or pneumothorax. HEART/MEDIASTINUM: ?? Cardiac silhouette appears prominent but unchanged. HARDWARE/LINES/TUBES: ?? None. BONES: ?? No acute findings. OTHER: ?? No other significant finding. IMPRESSION: Stable appearance of the chest when compared with the chest CT from 02/24/2021. ??No evidence of a new acute cardiopulmonary abnormality THIS IS AN ELECTRONICALLY VERIFIED FINAL REPORT 02/25/2021 1:50 PM - Electronically signed by ??Brady Holland M.D. D: ??02/25/2021 1:50 PM T: Report ID: [id number] Reading Location: ??[id number] Procedure Note Brady Holland Jr., MD - 02/25/2021 EXAM DESCRIPTION: XR CHEST 1 VIEW REASON FOR STUDY: PE suspected, low pretest prob, no D-dimer result Single view cxr s/p nuc med study today, sob and cough over 2 days TECHNIQUE: Frontal radiographic view of the chest acquired. COMPARISON: None. Chest CT 02/24/2021. FINDINGS: LUNGS/PLEURA: Small area of opacity in the right base corresponds to the focal opacity on the chest CT. The right upper lung in the left lung are clear. No pleural effusion or pneumothorax. HEART/MEDIASTINUM: Cardiac silhouette appears prominent but unchanged. HARDWARE/LINES/TUBES: None. BONES: No acute findings. OTHER: No other significant finding. IMPRESSION: Stable appearance of the chest when compared with the chest CT from 02/24/2021. No evidence of a new acute cardiopulmonary abnormality THIS IS AN ELECTRONICALLY VERIFIED FINAL REPORT 02/25/2021 1:50 PM - Electronically signed by Brady Holland M.D. T: Report ID: [id number] Reading Location: [id number] Cece Veras MD IM XR PROCEDURES Final Result * NM Pulmonary Perfusion Imaging (02/25/2021 1:41 PM TELEVISION TECHNICIAN) Anatomical Region Laterality Modality Body N/A Nuclear Medicine 02/25/2021 1:48 PM TELEVISION TECHNICIAN Narrative 02/25/2021 2:00 PM TELEVISION TECHNICIAN EXAM DESCRIPTION: ?? NM PULMONARY PERFUSION IMAGING REASON FOR STUDY: PE suspected, low pretest prob, pt esrd D-dimer not useful, hypoxic w/ decent air movement no wheeze less suspicious for COPD exacerbation, left upper extremity arteriovenous fistula created yesterday. RADIOPHARMACEUTICAL: ?? 6 ??mCi Tc-99m MAA via a ?? right antecubital ??IV site TECHNIQUE: Standard multi-planar perfusion scintigrams were obtained. COMPARISON: No prior V/Q scan. ??Correlation with chest radiograph ??the same day . FINDINGS: Slightly heterogeneous perfusion. ??The cardiac silhouette appears enlarged. ?? There is a rounded nonsegmental defect in the right base best seen on the RPO image corresponding to the pleural based opacity on the chest CT. ??No worrisome large segmental or subsegmental perfusion defects. IMPRESSION: Low ??probability for acute pulmonary embolism. ?? THIS IS AN ELECTRONICALLY VERIFIED FINAL REPORT 02/25/2021 2:00 PM - Electronically signed by ??Brady Holland M.D. D: ??02/25/2021 2:00 PM T: Report ID: [id number] Reading Location: ??[id number] Procedure Note Brady Holland Jr., MD - 02/25/2021 EXAM DESCRIPTION: NM PULMONARY PERFUSION IMAGING REASON FOR STUDY: PE suspected, low pretest prob, pt esrd D-dimer notuseful, hypoxic w/ decent air movement no wheeze less suspicious for COPD exacerbation, left upper extremity arteriovenous fistula createdyesterday. RADIOPHARMACEUTICAL: 6 mCi Tc-99m MAA via a right antecubital IVsite TECHNIQUE: Standard multi-planar perfusion scintigrams were obtained. COMPARISON: No prior V/Q scan. Correlation with chest radiograph thesame day . FINDINGS: Slightly heterogeneous perfusion. The cardiac silhouette appearsenlarged. There is a rounded nonsegmental defect in the right base best seen on theRPO image corresponding to the pleural based opacity on the chest CT. No worrisome large segmental or subsegmental perfusion defects. IMPRESSION: Low probability for acute pulmonary embolism. THIS IS AN ELECTRONICALLY VERIFIED FINAL REPORT 02/25/2021 2:00 PM - Electronically signed by Brady Holland M.D. T: Report ID: [id number] Reading Location: [place] [id number] [place] Cece Veras MD IMG NM PROCEDURES Final Result * ECG 12 lead (02/25/2021 7:49 AM TELEVISION TECHNICIAN) Ventricular Rate EKG/Min 68 BPM [facility] Atrial Rate 68 BPM [facility] CA-Interval (MSEC) 198 ms [facility] QRS-Interval (MSEC) 104 ms [facility] QT-Interval (MSEC) 386 ms [facility] QTc 410 ms [facility] P [place] 76 degrees [facility] R [place] -47 degrees [facility] T [place] 42 degrees [facility] Diagnosis Normal sinus rhythm Left anterior fascicular block Abnormal ECG When compared with ECG of 30-DEC-2020 11:29, No significant change was found [facility] 02/25/2021 7:49 AM TELEVISION TECHNICIAN 02/25/2021 2:22 PM TELEVISION TECHNICIAN us Kiera Quintana MD ECG ORDERABLES Fin al Result [facility] * eGFR (02/25/2021 5:31 AM TELEVISION TECHNICIAN) Pathologist [facility] [place] eGFR 20 mL/min/1.7 3 m2 [facility] EL[facility]ABETH Comment: Interpretive Data Reference Interval Normal ?>/= [...] interpretive data was last reviewed 2020 Blood 02/25/2021 5:31 AM TELEVISION TECHNICIAN 02/25/2021 6:25 AM TELEVISION TECHNICIAN us Kiera Quintana MD LAB BLOOD ORDERABLE S Final Result [place] [id number] [facility] Department [place] [address] * (ABNORMAL) Differential, auto (02/25/2021 5:31 AM TELEVISION TECHNICIAN) Neutrophil abs 6.6(H) 1.7 - 6.5 K/cumm [facility] Imm gran abs 0.0 0.0 - 0.1 K/cumm [facility] Lymphocyte abs 1.3 0.8 - 3.3 K/cumm [facility] Monocyte abs 0.4 0.2 - 0.8 K/cumm [facility] Eosinophil abs 0.0 0.0 - 0.5 K/cumm [facility] Basophil abs 0.0 0.0 - 0.1 K/cumm [facility] Neutrophil pct 79.6 % [facility] Comment: Interpretive Data Percent cell count reference ranges are not reported, since discordance with absolute values may lead to misinterpretation of CBC data. Current Interpretive Data was last revised on 2017. Imm gran pct 0.2 % [facility] Comment: Interpretive Data Percent cell count reference ranges are not reported, since discordance with absolute values may lead to misinterpretation of CBC data. Current Interpretive Data was last revised on 2017. Lymphocyte pct 15.5 % [facility] Comment: Interpretive Data Percent cell count reference ranges are not reported, since discordance with absolute values may lead to misinterpretation of CBC data. Current Interpretive Data was last revised on 2017. Monocyte pct 4.6 % [facility] Comment: Interpretive Data Percent cell count reference ranges are not reported, since discordance with absolute values may lead to misinterpretation of CBC data. Current Interpretive Data was last revised on 2017. Eosinophil pct 0.0 % [facility] Comment: Interpretive Data Percent cell count reference ranges are not reported, since discordance with absolute values may lead to misinterpretation of CBC data. Current Interpretive Data was last revised on 2017. Basophil pct 0.1 % [facility] Comment: Interpretive Data Percent cell count reference ranges are not reported, since discordance with absolute values may lead to misinterpretation of CBC data. Current Interpretive Data was last revised on 2017. Blood 02/25/2021 5:31 AM TELEVISION TECHNICIAN 02/25/2021 6:25 AM TELEVISION TECHNICIAN us Kiera Quintana MD LAB BLOOD ORDERABLE S Final Result [facility] [address] [facility] Department [place] [address] * (ABNORMAL) CBC with auto differential (02/25/2021 5:31 AM TELEVISION TECHNICIAN) WBC 8.3 3.8 - 9.9 K/cumm [facility] Hgb 14.8 11.9 - 15.5 g/dL [facility] Hct 46.7(H) 35.6 - 45.5 % [facility] Plt 205 150 - 400 K/cumm [facility] MPV 11.6 9.1 - 12.3 fL [facility] RBC 4.77 3.90 - 5.20 M/cumm [facility] MCV 97.9(H) 81.3 - 96.4 fL [facility] MCH 31.0 27.1 - 33.3 pg [facility] MCHC 31.7(L) 32.3 - 35.7 g/dL [facility] RDW CV 13.9 11.1 - 14.9 % [facility] RDW SD 49.9(H) 35.7 - 48.1 fL [facility] NRBC abs 0.00 0.00 - 0.01 K/cumm [facility] Blood 02/25/2021 5:31 AM TELEVISION TECHNICIAN 02/25/2021 6:25 AM TELEVISION TECHNICIAN us Kiera Quintana MD LAB BLOOD ORDERABLE S Final Result Performing Organization Address City/[facility] de Phone Number [address] [place] [address] * Phosphorus (02/25/2021 5:31 AM TELEVISION TECHNICIAN) [facility] Phosphorus, pl 3.6 2.3 - 4.5 mg/dL [facility] Blood 02/25/2021 5:31 AM TELEVISION TECHNICIAN 02/25/2021 6:25 AM TELEVISION TECHNICIAN us Kiera Quintana MD LAB BLOOD ORDERABLE S Final Result Performing Organization Address [facility] Co de Phone Number [address] [place] [address] * Magnesium (02/25/2021 5:31 AM TELEVISION TECHNICIAN) [facility] Magnesium 2.2 1.4 - 2.5 mg/dL [facility] Blood 02/25/2021 5:31 AM TELEVISION TECHNICIAN 02/25/2021 6:25 AM TELEVISION TECHNICIAN Result [facility] us Kiera Quintana MD LAB BLOOD ORDERABLE S Final Result Performing Organization Address [facility] de Phone Number [address] [place] [address] * (ABNORMAL) Comprehensive metabolic panel (02/25/2021 5:31 AM TELEVISION TECHNICIAN) [facility] Sodium 140 135 - 145 mmol/L [facility] Potassium, pl 5.1(H) 3.3 - 4.9 mmol/L [facility] Chloride 98 97 - 110 mmol/L [facility] CO2 30 22 - 32 mmol/L [facility] Anion gap 12 2 - 15 mmol/L [facility] BUN 28(H) 8 - 25 mg/dL [facility] Creatinine 2.40(H) 0.60 - 1.10 mg/dL [facility] Glucose 138 70 - 199 mg/dL [facility] Comment: Interpretive Data Fasting glucose >/= 126 [...] interpretive data was last revised 2017. Calcium 9.8 8.5 - 10.3 mg/dL [facility] Bilirubin, total 0.3 0.1 - 1.2 mg/dL [facility] Protein, pl 7.2 6.5 - 8.5 g/dL [facility] Albumin 4.1 3.5 - 5.0 g/dL [facility] Alk phos 92 40 - 130 Units/L [facility] ALT 13 7 - 45 Units/L [facility] AST 23 10 - 45 Units/L [facility] Blood 02/25/2021 5:31 AM TELEVISION TECHNICIAN 02/25/2021 6:25 AM TELEVISION TECHNICIAN us Kiera Quintana MD LAB BLOOD ORDERABLE S Final Result [facility] [address] [facility] Department [place] [address] * (ABNORMAL) Pro B-type natriuretic peptide (02/25/2021 5:31 AM TELEVISION TECHNICIAN) NT-proBNP 782(H) <=300 pg/mL [facility] Comment: Interpretive Comments: A. Dyspnea in Acute Care Setting All Ages: ?< 300 pg/ml, acute heart failure unlikely. < 50 yrs: ?300 - 450 pg/ml, further investigation warranted. ? > 450 pg/ml, acute heart failure likely. 50 - 74 yrs: ? 300 - 900 pg/ml, further investigation warranted. ? > 900 pg/ml, acute heart failure likely . > or = 75 yrs: ? 450 - 1800 pg/ml, further investigation warranted. ? > 1800 pg/ml, acute heart failure likely. B. Non-acute Setting < 75 yrs ? < 125 pg/ml, rules out heart failure. ? > or = 125 pg/ml, further investigation warranted. > or = 75 yrs ?< 450 pg/ml, rules out heart failure. ? > or = 450 pg/ml, further investigation warranted. - Knowledge of each individual patient's NT-proBNP range may be more useful than using similar cut-points for every patient. Please note that marked elevations in NT-proBNP levels may be observed in state other than Left Ventricular Congestive Failure, including: acute coronary syndromes, right heart strain/failure (including pulmonary embolism and cor pulmonale), critical illness, renal failure, as well as advanced age. - References: 1. Celia MAHAJAN et.al. Eur Heart J. 2006:27:330-337. 2. Cecilia BLACK, Eileen ESCALONA. J. AM Peace Cardiol: Cardiovasc Imag. 2009;2: 216- 225. Interpretive Data Last Revised Date: 2017. Blood 02/25/2021 5:31 AM TELEVISION TECHNICIAN 02/25/2021 6:25 AM TELEVISION TECHNICIAN us Kiera Quintana MD LAB BLOOD ORDERABLE S Final Result Performing Organization Address City/State/[facility] Phone Number [id number] [facility] [place] [address] * CT Chest WO Contrast (02/24/2021 11:10 PM TELEVISION TECHNICIAN) Anatomical Region Laterality Modality Body N/A Computed Tomogra phy 02/25/2021 9:38 AM TELEVISION TECHNICIAN Narrative 02/25/2021 10:00 AM TELEVISION TECHNICIAN EXAM DESCRIPTION: ?? CT CHEST WO CONTRAST REASON FOR STUDY: ?? COPD, acute respiratory failure w/ hypoxia. ?? Mild pulmonary edema, patient was negative for COVID pre-op, patient denies having fever or chills. ?? Cirrhosis of liver. ??Chronic kidney disease stage 4. TECHNIQUE: CT scan of the chest performed without intravenous contrast using helical scanning technique. Reconstructed coronal and sagittal MPR images reviewed. ??All images stored on PACS. ??Automated exposure control was used as a dose optimization technique for this examination. COMPARISON: ?? None FINDINGS: The sensitivity for detection of solid visceral lesions is diminished without the use of intravenous contrast. LUNGS: ?? Somewhat bilobed pleural based masslike opacity along posterior aspect of right lower lobe is indeterminate. ??While this could represent localized fibrosis, malignancy also must be considered. ??PET-CT could be used for additional evaluation. ??5 mm ground-glass nodule posterior right lung apex (transverse image 20). ??4 mm and 5 mm noncalcified nodules posterior right upper lobe (transverse images 45 and 54). ??6 mm noncalcified nodule posterior right lower lobe (transverse image 83). ??6 mm noncalcified nodule in lingula (transverse image 38). ??Mild lingular and bibasilar scarring. ??Old granulomatous disease. PLEURA: ?? Mild right posterior pleural thickening. ??No effusion. No pneumothorax. MEDIASTINUM/MIKE: ?? No identified masses or abnormal nodes. HEART: ?? Heart size is normal with no pericardial effusion. ?? Coronary artery calcifications. VASCULATURE: ?? Atherosclerotic changes but no thoracic aortic aneurysm. AXILLA: ?? No adenopathy. CHEST WALL: ?? No masses. ??No subcutaneous air. HARDWARE/LINES/TUBES: ?? None. UPPER ABDOMEN: ?? 1.7 cm left and 1.2 cm right low-density adrenal nodules are thought to be benign. ??Gallbladder sludge and/or small stones suspected. ?? Ultrasound could be used if clinically indicated. MUSCULOSKELETAL: ?? No acute abnormality. OTHER: ?? No other significant abnormality. IMPRESSION: ?? 1. ?? Approximately 6.9 x 2.5 x 1.8 cm bilobed pleural based masslike opacity along posterior aspect of right lower lobe, indeterminate. ??Localized fibrosis is certainly a possibility, but malignancy also must be considered. ??PET-CT is recommended for additional evaluation. ??There is associated more diffuse mild right posterior pleural thickening. ??No appreciable pleural effusion. 2. ?? Small bilateral noncalcified pulmonary nodules, largest measuring 6 mm. ?? Six-month follow-up CT chest is recommended. 3. ?? No adenopathy. 4. ?? Coronary artery calcifications. 5. ?? Bilateral small low-density adrenal nodules are thought to be benign. THIS IS AN ELECTRONICALLY VERIFIED FINAL REPORT 02/25/2021 10:00 AM - Electronically signed by ??Naveen GONZALES D: ??02/25/2021 10:00 AM T: Report ID: [id number] Reading Location: ??[id number] Procedure Note Naveen Kirkpatrick MD - 02/25/2021 EXAM DESCRIPTION: CT CHEST WO CONTRAST REASON FOR STUDY: COPD, acute respiratory failure w/ hypoxia. Mild pulmonary edema, patient was negative for COVID pre-op, patientdenies having fever or chills. Cirrhosis of liver. Chronic kidney disease stage 4. TECHNIQUE: CT scan of the chest performed without intravenous contrastusing helical scanning technique. Reconstructed coronal and sagittal MPR images reviewed. All images stored on PACS. Automated exposure control was usedas a dose optimization technique for this examination. COMPARISON: None FINDINGS: The sensitivity for detection of solid visceral lesions is diminishedwithout the use of intravenous contrast. LUNGS: Somewhat bilobed pleural based masslike opacity along posterior aspect of right lower lobe is indeterminate. While this could represent localized fibrosis, malignancy also must be considered. PET-CT could beused for additional evaluation. 5 mm ground-glass nodule posterior right lungapex (transverse image 20). 4 mm and 5 mm noncalcified nodules posterior right upper lobe (transverse images 45 and 54). 6 mm noncalcified noduleposterior right lower lobe (transverse image 83). 6 mm noncalcified nodule inlingula (transverse image 38). Mild lingular and bibasilar scarring. Old granulomatous disease. PLEURA: Mild right posterior pleural thickening. No effusion. No pneumothorax. MEDIASTINUM/MIKE: No identified masses or abnormal nodes. HEART: Heart size is normal with no pericardial effusion. Coronaryartery calcifications. VASCULATURE: Atherosclerotic changes but no thoracic aortic aneurysm. AXILLA: No adenopathy. CHEST WALL: No masses. No subcutaneous air. HARDWARE/LINES/TUBES: None. UPPER ABDOMEN: 1.7 cm left and 1.2 cm right low-density adrenal nodulesare thought to be benign. Gallbladder sludge and/or small stones suspected. Ultrasound could be used if clinically indicated. MUSCULOSKELETAL: No acute abnormality. OTHER: No other significant abnormality. IMPRESSION: 1. Approximately 6.9 x 2.5 x 1.8 cm bilobed pleural based masslikeopacity along posterior aspect of right lower lobe, indeterminate. Localizedfibrosis is certainly a possibility, but malignancy also must be considered.PET-CT is recommended for additional evaluation. There is associated more diffusemild right posterior pleural thickening. No appreciable pleural effusion. 2. Small bilateral noncalcified pulmonary nodules, largest measuring 6mm. Six-month follow-up CT chest is recommended. 3. No adenopathy. 4. Coronary artery calcifications. 5. Bilateral small low-density adrenal nodules are thought to be benign. THIS IS AN ELECTRONICALLY VERIFIED FINAL REPORT 02/25/2021 10:00 AM - Electronically signed by Naveen GONZALES T: Report ID: [id number] Reading Location: [place] [address] us Altresshue Quintana MD IMG CT PROCEDURES F inal Result * (ABNORMAL) Blood gas, arterial (02/24/2021 10:34 PM TELEVISION TECHNICIAN) pH, Art 7.32(L) 7.35 - 7.45 [facility] PCO2, Arterial 65(H) 35 - 45 mmHg [facility] PO2, Arterial 76(L) 83 - 108 mmHg [facility] HCO3 Art (Calculated) 34(H) 20 - 30 mmol/L [facility] BE, art 5 mmol/L [facility] Comment: Interpretive Data No Reference Range Established Current Interpretive Data was last revised on 2017. Blood 02/24/2021 10:3 4 PM TELEVISION TECHNICIAN 02/24/2021 10:37 PM TELEVISION TECHNICIAN us Kiera Quintana MD LAB BLOOD ORDERABLE S Final Result Performing Organization Address [facility] de Phone Number [address] Department [place] [address] * eGFR (02/24/2021 12:32 PM TELEVISION TECHNICIAN) eGFR 20 mL/min/1.7 3 m2 [facility] Comment: Interpretive Data Reference Interval Normal ?>/= [...] interpretive data was last reviewed 2020 Blood 02/24/2021 12:3 2 PM TELEVISION TECHNICIAN 02/24/2021 12:36 PM TELEVISION TECHNICIAN us Herberth Rodgers MD LAB BLOOD ORDERABLES Final Result Performing Organization Address [facility] de Phone Number SIMON [address] Department [place] [address] * (ABNORMAL) Differential, auto (02/24/2021 12:32 PM TELEVISION TECHNICIAN) Neutrophil abs 3.4 1.7 - 6.5 K/cumm [facility] Imm gran abs 0.0 0.0 - 0.1 K/cumm [facility] Lymphocyte abs 2.3 0.8 - 3.3 K/cumm [facility] Monocyte abs 1.0(H) 0.2 - 0.8 K/cumm [facility] Eosinophil abs 0.2 0.0 - 0.5 K/cumm [facility] Basophil abs 0.0 0.0 - 0.1 K/cumm [facility] Neutrophil pct 49.9 % [facility] Comment: Interpretive Data Percent cell count reference ranges are not reported, since discordance with absolute values may lead to misinterpretation of CBC data. Current Interpretive Data was last revised on 2017. Imm gran pct 0.1 % [facility] Comment: Interpretive Data Percent cell count reference ranges are not reported, since discordance with absolute values may lead to misinterpretation of CBC data. Current Interpretive Data was last revised on 2017. Lymphocyte pct 32.9 % [facility] Comment: Interpretive Data Percent cell count reference ranges are not reported, since discordance with absolute values may lead to misinterpretation of CBC data. Current Interpretive Data was last revised on 2017. Monocyte pct 14.4 % [facility] Comment: Interpretive Data Percent cell count reference ranges are not reported, since discordance with absolute values may lead to misinterpretation of CBC data. Current Interpretive Data was last revised on 2017. Eosinophil pct 2.3 % [facility] Comment: Interpretive Data Percent cell count reference ranges are not reported, since discordance with absolute values may lead to misinterpretation of CBC data. Current Interpretive Data was last revised on 2017. Basophil pct 0.4 % [facility] Comment: Interpretive Data Percent cell count reference ranges are not reported, since discordance with absolute values may lead to misinterpretation of CBC data. Current Interpretive Data was last revised on 2017. Blood 02/24/2021 12:3 2 PM TELEVISION TECHNICIAN 02/24/2021 12:36 PM TELEVISION TECHNICIAN Herberth Rodgers MD LAB BLOOD ORDERABLES Final Result Performing Organization Address [facility] de Phone Number SIMON [address] [address] * Protime-INR (02/24/2021 12:32 PM TELEVISION TECHNICIAN) Pathologist [facility] [place] PT 13.0 12.0 - 14.6 sec [facility] INR 1.0 [facility] Comment: Ref Range High Interpretive data Oral anticoagulant therapeutic ranges: Venous thromboembolism prophylaxis or treatment: 2.0-3.0 CARDIOLOGY Standard range: 2.0-3.0 High-intensity range: 2.5-3.5 Refer to indication-specific guidelines for appropriate target ranges for prosthetic heart valve replacement. Current interpretive data was last revised on 2019. Blood 02/24/2021 12:3 2 PM TELEVISION TECHNICIAN 02/24/2021 12:36 PM TELEVISION TECHNICIAN Herberth Rodgers MD LAB BLOOD ORDERABLES Final Result Performing Organization Address [facility] de Phone Number SIMON [address] [address] * (ABNORMAL) CBC with auto differential (02/24/2021 12:32 PM TELEVISION TECHNICIAN) Pathologist [facility] [place] WBC 6.9 3.8 - 9.9 K/cumm [facility] Hgb 14.3 11.9 - 15.5 g/dL [facility] Hct 44.7 35.6 - 45.5 % [facility] Plt 159 150 - 400 K/cumm [facility] MPV 10.7 9.1 - 12.3 fL [facility] RBC 4.61 3.90 - 5.20 M/cumm [facility] MCV 97.0(H) 81.3 - 96.4 fL [facility] MCH 31.0 27.1 - 33.3 pg [facility] MCHC 32.0(L) 32.3 - 35.7 g/dL [facility] RDW CV 14.1 11.1 - 14.9 % [facility] RDW SD 49.7(H) 35.7 - 48.1 fL [facility] NRBC abs 0.00 0.00 - 0.01 K/cumm [facility] Blood 02/24/2021 12:3 2 PM TELEVISION TECHNICIAN 02/24/2021 12:36 PM TELEVISION TECHNICIAN Herberth Rodgers MD LAB BLOOD ORDERABLES Final Result Performing Organization Address City/State/[facility] de Phone Number [facility] [address] [facility] Department [place] [address] * (ABNORMAL) Basic metabolic panel (02/24/2021 12:32 PM TELEVISION TECHNICIAN) Sodium 138 135 - 145 mmol/L [facility] Potassium, pl 4.3 3.3 - 4.9 mmol/L [facility] Chloride 98 97 - 110 mmol/L [facility] CO2 33(H) 22 - 32 mmol/L [facility] Anion gap 7 2 - 15 mmol/L [facility] BUN 32(H) 8 - 25 mg/dL [facility] Creatinine 2.40(H) 0.60 - 1.10 mg/dL [facility] Glucose 84 70 - 199 mg/dL [facility] Comment: Interpretive Data Fasting glucose >/= 126 [...] interpretive data was last revised 2017. Calcium 9.6 8.5 - 10.3 mg/dL [facility] Blood 02/24/2021 12:3 2 PM TELEVISION TECHNICIAN 02/24/2021 12:36 PM TELEVISION TECHNICIAN Herberth Rodgers MD LAB BLOOD ORDERABLES Final Result Performing Organization Address City/[facility] de Phone Number SIMON [address] [facility] [place] [address] * aPTT (02/24/2021 12:32 PM TELEVISION TECHNICIAN) aPTT 35 22 - 37 sec SIMON ELIZABETH Comment: Interpretive data aPTT test has not been evaluated for monitoring heparin therapy. The anti-Xa is the preferred test. Current interpretive data was last revised on 2019. Blood 02/24/2021 12:3 2 PM TELEVISION TECHNICIAN 02/24/2021 12:36 PM TELEVISION TECHNICIAN us Herberth Rodgers MD LAB BLOOD ORDERABLES Final Result Performing Organization Address [facility] de Phone Number SIMON [address] [place] [address] documented in this encounter Visit Diagnoses Diagnosis Acute respiratory failure with hypoxia (CMS/HCC) (HCC)- Primary Hypoxia Hypoxemia Acute respiratory failure with hypoxia (CMS/HCC) (HCC) End stage renal disease (CMS/HCC) (HCC) End stage renal disease Other hyperlipidemia Fibromyalgia Unspecified myalgia and myositis Hypoxia Hypoxemia documented in this encounter Admitting Diagnoses Diagnosis End stage renal disease (CMS/HCC) (HCC) End stage renal disease Acute respiratory failure with hypoxia (CMS/HCC) (HCC) Hypoxia Hypoxemia documented in this encounter Administered Medications Inactive Administered Medications - up to 3 most recent administrations Medication Order MAR Action Action Date Dose Rate Site acetaminophen (TYLENOL) tablet 650 mg 650 mg, oral, Every 4 hours PRN, 1st line for pain, headaches, fever, fever greater than 38.3 C, Starting on Bernarda 02/24/21 at 1953, Do not exceed 4000 mg of acetaminophen in 24 hours, Indications: Fever, PainIndications:Fever,Pain acetaminophen (TYLENOL) tablet 975 mg 975 mg (rounded from 1,000 mg), oral, Once, On Bernarda 02/24/21 at 1300, For 1 dose, Pre-Op, Indications: Pre-Emptive AnalgesiaIndications:Pre-Emptive Analgesia Given 02/24/2021 12:45 PM TELEVISION TECHNICIAN 975 mg albuterol HFA (PROVENTIL HFA,VENTOLIN HFA,PROAIR HFA) 90 mcg/actuation inhaler 2 puff 2 puff, inhalation, Every 4 hours PRN (therapist respiratory), wheezing, Starting on Sun02/25/21 at 1300 budesonide-formoteroL (SYMBICORT) 160-4.5 mcg/actuation inhaler 2 puff 2 puff, inhalation, 2 times daily (therapist respiratory), First dose on Sun02/25/21 at 2000, Rinse mouth with water after use. Do not swallow., I /authorizing provider attest that the patient meets the approved [facility] Use Criteria: Yes Given 02/27/2021 7:28 AM TELEVISION TECHNICIAN 2 puffs Given 02/26/2021 9:14 PM TELEVISION TECHNICIAN 2 puffs Given 02/26/2021 5:54 AM TELEVISION TECHNICIAN 2 puffs calcitRIOL (ROCALTROL) capsule 0.25 mcg 0.25 mcg, oral, 3 times weekly (Once per day on Sun), First dose on Sun02/25/21 at 0900 Given 02/25/2021 9:18 AM TELEVISION TECHNICIAN 0.25 mcg cholecalciferol (VITAMIN D-3) tablet 2,000 Units 2,000 Units, oral, Daily, First dose on Sun02/25/21 at 0900 Given 02/27/2021 8:29 AM TELEVISION TECHNICIAN 2,000 Units Given 02/26/2021 10:03 AM TELEVISION TECHNICIAN 2,000 Units Given 02/25/2021 9:18 AM TELEVISION TECHNICIAN 2,[address] (CYMBALTA) extended release capsule 60 mg 60 mg, oral, Nightly, First dose on Bernarda 02/24/21 at 2200, Capsule may be opened and contents mixed with applesauce or apple juice ONLY. Do not crush, chew, cut, dissolve, open or otherwise manipulate tablet/capsule. Given 02/26/2021 9:04 PM TELEVISION TECHNICIAN 60 mg Given 02/25/2021 8:15 PM TELEVISION TECHNICIAN 60 mg Given 02/24/2021 11:45 PM TELEVISION TECHNICIAN 60 mg enoxaparin (LOVENOX) syringe 30 mg 30 mg, subcutaneous, Daily (for enoxaparin), First dose on 02/26/21 at 2100, Indications: Deep Vein Thrombosis PreventionIndications:Deep Vein Thrombosis Prevention Given 02/26/2021 9:04 PM TELEVISION TECHNICIAN 30 mg Right Upper Arm famotidine (PEPCID) tablet 20 mg 20 mg, oral, Once, On Bernarda 02/24/21 at 1300, For 1 dose, Pre-Op, Indications: gastroesophageal reflux diseaseIndications:gastroesophagea l reflux disease Given 02/24/2021 12:45 PM TELEVISION TECHNICIAN 20 mg furosemide (LASIX) 10 mg/mL injection 40 mg 40 mg, intravenous, Once, On 02/26/21 at 1400, For 1 dose, For IV push: administer doses < 160 mg at a rate of 20 -40 mg/min. Doses >/= 160 mg should be administered no faster than 4 mg/min. Room temperature only Given 02/26/2021 3:01 PM TELEVISION TECHNICIAN 40 mg furosemide (LASIX) 10 mg/mL injection 40 mg 40 mg, intravenous, Once, On 02/27/21 at 1430, For 1 dose, For IV push: administer doses < 160 mg at a rate of 20 -40 mg/min. Doses >/= 160 mg should be administered no faster than 4 mg/min. Room temperature only Given 02/27/2021 2:38 PM TELEVISION TECHNICIAN 40 mg furosemide (LASIX) tablet 40 mg 40 mg, oral, Nightly, First dose on Bernarda 02/24/21 at 2200 Given 02/26/2021 9:03 PM TELEVISION TECHNICIAN 40 mg Given 02/25/2021 8:15 PM TELEVISION TECHNICIAN 40 mg Given 02/25/2021 12:11 AM TELEVISION TECHNICIAN 40 mg HYDROcodone-acetaminophen (NORCO) 5-325 mg per tablet 1 tablet 1 tablet, oral, Every 4 hours PRN, 1st line for pain, Starting on Bernarda 02/24/21 at 1952, Indications: PainIndications:Pain Given 02/27/2021 7:49 PM TELEVISION TECHNICIAN 1 tablet Given 02/27/2021 3:32 PM TELEVISION TECHNICIAN 1 tablet Given 02/27/2021 10:14 AM TELEVISION TECHNICIAN 1 tablet ipratropium-albuteroL (DUO-NEB) 0.5-2.5 mg/3 mL nebulizer solution 3 mL 3 mL, nebulization, Every 6 hours while awake (therapist respiratory), First dose (after last modification) on Sun02/25/21 at 1500, Indications: Chronic Obstructive Pulmonary Disease with BronchospasmsIndications:Chronic Obstructive Pulmonary Disease with Bronchospasms Given 02/26/2021 5:53 AM TELEVISION TECHNICIAN 3 mL Given 02/25/2021 9:41 PM TELEVISION TECHNICIAN 3 mL Given 02/25/2021 2:51 PM TELEVISION TECHNICIAN 3 mL ipratropium-albuteroL (DUO-NEB) 0.5-2.5 mg/3 mL nebulizer solution 3 mL 3 mL, nebulization, 2 times daily (therapist respiratory), First dose (after last modification) on Sun02/26/21 at 2000, Indications: Chronic Obstructive Pulmonary Disease with BronchospasmsIndications:Chronic Obstructive Pulmonary Disease with Bronchospasms Given 02/27/2021 7:28 AM TELEVISION TECHNICIAN 3 mL Given 02/26/2021 9:13 PM TELEVISION TECHNICIAN 3 mL levothyroxine (SYNTHROID) tablet 200 mcg 200 mcg, oral, Daily (early AM), First dose on Sun02/25/21 at 0600, Administer on an empty stomach, preferably 30 minutes before breakfast. Take 4 hours apart from antacids, iron and calcium products. Given 02/27/2021 5:58 AM TELEVISION TECHNICIAN 200 mcg Given 02/26/2021 5:26 AM TELEVISION TECHNICIAN 200 mcg Given 02/25/2021 5:09 AM TELEVISION TECHNICIAN 200 mcg lidocaine (XYLOCAINE) 10 mg/mL (1 %) injection 2-10 mg 2-10 mg (0.2-1 mL), other, Once as needed, pain with IV placement, Starting on Sun02/24/21 at 1215, For 1 dose, Administer volume needed to infiltrate IV site. multivit eqgmszjs-nqmo-OV-calcium (THERA-M) tablet 1 tablet 1 tablet, oral, Daily, First dose on Sun02/25/21 at 0900 Given 02/27/2021 8:30 AM TELEVISION TECHNICIAN 1 tablet Given 02/26/2021 10:03 AM TELEVISION TECHNICIAN 1 tablet Given 02/25/2021 9:17 AM TELEVISION TECHNICIAN 1 tablet pregabalin (LYRICA) capsule 200 mg 200 mg, oral, 2 times daily, First dose on Sun02/24/21 at 2200 Given 02/27/2021 8:30 AM TELEVISION TECHNICIAN 200 mg Given 02/26/2021 9:03 PM TELEVISION TECHNICIAN 200 mg Given 02/26/2021 10:03 AM TELEVISION TECHNICIAN 200 mg primidone (MYSOLINE) tablet 50 mg 50 mg, oral, Nightly, First dose on Sun02/24/21 at 2200 Given 02/26/2021 9:03 PM TELEVISION TECHNICIAN 50 mg Given 02/25/2021 8:15 PM TELEVISION TECHNICIAN 50 mg Given 02/24/2021 11:45 PM TELEVISION TECHNICIAN 50 mg prochlorperazine (COMPAZINE) injection 5 mg 5 mg, intravenous, Administer over 2 Minutes, Every 6 hours PRN, nausea, vomiting, Use if unable to tolerate PO, Starting on Bernarda 02/24/21 at 1953, Indications: Nausea and VomitingIndications:Nausea and Vomiting prochlorperazine (COMPAZINE) tablet 5 mg 5 mg, oral, Every 6 hours PRN, nausea, vomiting, Starting on Bernarda 02/24/21 at 1953, Indications: Nausea and VomitingIndications:Nausea and Vomiting propranoloL (INDERAL) tablet 60 mg 60 mg, oral, 2 times daily, First dose on Sun02/25/21 at 0900, Hold for systolic blood pressure less than 120 or pulse less than 55. Given 02/26/2021 9:0 4 PM TELEVISION TECHNICIAN 60 mg Given 02/25/2021 8:15 PM TELEVISION TECHNICIAN 60 mg Given 02/25/2021 9:17 AM TELEVISION TECHNICIAN 60 mg ramelteon (ROZEREM) tablet 8 mg 8 mg, oral, Nightly PRN, sleep, Starting on Sun02/24/21 at 1953, Indications: Sleep-Onset InsomniaIndications:Sleep-Onset Insomnia Given 02/26/2021 9:04 PM TELEVISION TECHNICIAN 8 m g rosuvastatin (CRESTOR) tablet 10 mg 10 mg, oral, Nightly, First dose on Bernarda 02/24/21 at 2200 Given 02/26/2021 9:03 PM TELEVISION TECHNICIAN 10 mg Given 02/25/2021 8:15 PM TELEVISION TECHNICIAN 10 mg Given 02/24/2021 11:45 PM TELEVISION TECHNICIAN 10 mg senna-docusate (PERICOLACE) 8.6-50 mg per tablet 1 tablet 1 tablet, oral, 2 times daily PRN, constipation, Starting on Bernarda 02/24/21 at 1953, Indications: constipationIndications:constipation Given 02/25/2021 4:37 PM TELEVISION TECHNICIAN 1 table t sodium chloride 0.9% flush 0.5-20 mL 0.5-20 mL, intra-catheter, As needed, line care, Starting on Sun02/24/21 at 1215, Flush volume based on line type and size. Flush before and after each use. sodium chloride 0.9% flush 0.5-20 mL 0.5-20 mL, intra-catheter, Every 8 hours scheduled, First dose on Bernarda 02/24/21 at 2200, Flush volume based on line type and size. Given 02/27/2021 1:53 PM TELEVISION TECHNICIAN 10 mL Given 02/26/2021 3:11 PM TELEVISION TECHNICIAN 10 mL Given 02/25/2021 8:22 PM TELEVISION TECHNICIAN 10 mL sodium chloride 0.9% flush 0.5-20 mL 0.5-20 mL, intra-catheter, As needed, line care, Starting on Bernarda 02/24/21 at 1953, Flush volume based on line type and size. Flush before and after each use. sodium chloride 0.9% infusion 30 mL/hr, intravenous, Continuous, Starting on Bernarda 02/24/21 at 1300, On hold since Sun02/25/2021 at 0855 until manually unheld New Bag 02/24/2021 11:48 PM TELEVISION TECHNICIAN 30 mL/hr 30 mL/hr Rate/Dose Verify 02/24/2021 3:19 PM TELEVISION TECHNICIAN 30 mL/h r New Bag 02/24/2021 12:36 PM TELEVISION TECHNICIAN 30 mL/hr 30 mL/hr tc-99m macroaggregated albumin (MAA) injection 6 millicurie 6 millicurie, intravenous, Once in imaging, radiopharmaceutical, Starting on Sun02/25/21 at 1336, For 1 dose, Indications: Diagnostic RadiographyIndications:Diagnostic Radiography Given 02/25/2021 1:36 PM TELEVISION TECHNICIAN 6 millicuries documented in this encounter Discontinued Medications Medication Sig Discontinue Reason Start Date End Da te pregabalin (Lyrica) 100 mg capsule Take 200 mg by mouth 2 (two) times a day Error 02/22/2021 furosemide (LASIX) 40 mg tablet Take 40 mg by mouth nightly Reorder 02/27/2021 spironolactone (ALDACTONE) 50 mg tablet Take 50 mg by mouth daily Stop Taking at Discharge 02/27/2021 documented as of this encounter Historical Medications * This list may reflect changes made after this encounter. pregabalin (LYRICA) 200 mg capsule Take 1 capsule (200 mg total) by mouth 2 (two) times a day 01/24/2021 added in this encounter Active and Recently Administered Medications Times are shown in TELEVISION TECHNICIAN. Scheduled Medication Order 02/25/2021 02/26/2021 02/27/2021 budesonide-formoteroL (SYMBICORT) 160-4.5 mcg/actuation inhaler 2 puff 2 puff, inhalation, 2 times daily (therapist respiratory), First dose on Sun02/25/21 at 2000, Rinse mouth with water after use. Do not swallow., I /authorizing provider attest that the patient meets the approved [facility] Use Criteria: Yes 2153 (Given - Provider: Blair Johns, SUMI) 05 (Given - Provider: Ashtyn Marcus RRT)601 (Not Given - Provider: Ashtyn Marcus RRT - Reason: Other)2113 (Given - Provider: Ashtyn Marcus RRT) 727 (Given - Provider: Carmen Diallo RRT) calcitRIOL (ROCALTROL) capsule 0.25 mcg 0.25 mcg, oral, 3 times weekly (Once per day on Sun), First dose on Sun02/25/21 at 0900 0918 (Given - Provider: Marion Mora, CACHORRO) cholecalciferol (VITAMIN D-3) tablet 2,000 Units 2,000 Units, oral, Daily, First dose on Sun02/25/21 at 0900 0918 (Given - Provider: Marion Mora, CACHORRO) 1003 (Given - Provider: Magnolia Ponce RN) 0829 (Given - Provider: Mary Fry RN) DULoxetine DR (CYMBALTA) extended release capsule 60 mg 60 mg, oral, Nightly, First dose on Bernarda 02/24/21 at 2200, Capsule may be opened and contents mixed with applesauce or apple juice ONLY. Do not crush, chew, cut, dissolve, open or otherwise manipulate tablet/capsule. 2014 (Given - Provider: Ana Power, CACHORRO) 2103 (Given - Provider: Ana Power, CACHORRO) enoxaparin (LOVENOX) syringe 30 mg 30 mg, subcutaneous, Daily (for enoxaparin), First dose on 02/26/21 at 2100, Indications: Deep Vein Thrombosis Prevention 2103 (Given - Provider: Ana Power RN) furosemide (LASIX) 10 mg/mL injection 40 mg (COMPLETED) 40 mg, intravenous, Once, On 02/26/21 at 1400, For 1 dose, For IV push: administer doses < 160 mg at a rate of 20 -40 mg/min. Doses >/= 160 mg should be administered no faster than 4 mg/min. Room temperature only 1501 (Given - Provider: Mary Fry RN) furosemide (LASIX) 10 mg/mL injection 40 mg (COMPLETED) 40 mg, intravenous, Once, On 02/27/21 at 1430, For 1 dose, For IV push: administer doses < 160 mg at a rate of 20 -40 mg/min. Doses >/= 160 mg should be administered no faster than 4 mg/min. Room temperature only 1438 (Given - Provider: Mary Fry RN) furosemide (LASIX) tablet 40 mg 40 mg, oral, Nightly, First dose on Bernarda 02/24/21 at 2200 0011 (Given - Provider: Ana Power RN)2014 (Given - Provider: Ana Power RN) 2102 (Given - Provider: Ana Power RN) ipratropium-albuteroL (DUO-NEB) 0.5-2.5 mg/3 mL nebulizer solution 3 mL (CANCELED) 3 mL, nebulization, Every 6 hours while awake (therapist respiratory), First dose (after last modification) on Sun02/25/21 at 1500, Indications: Chronic Obstructive Pulmonary Disease with Bronchospasms 145 (Given - Provider: Carolina Gamboa, HANDS ASSEMBLER)214 (Given - Provider: Blair Johns, SUMI) 0553 (Given - Provider: Ashtyn Marcus, SUMI)0603 (Not Given - Provider: Ashtyn Marcus RRT - Reason: Other) ipratropium-albuteroL (DUO-NEB) 0.5-2.5 mg/3 mL nebulizer solution 3 mL 3 mL, nebulization, 2 times daily (therapist respiratory), First dose (after last modification) on 02/26/21 at 2000, Indications: Chronic Obstructive Pulmonary Disease with Bronchospasms 2112 (Given - Provider: Ashtyn Marcus, COMPUTER COMPOSITOR) 727 (Given - Provider: Carmen Diallo, COMPUTER COMPOSITOR) levothyroxine (SYNTHROID) tablet 200 mcg 200 mcg, oral, Daily (early AM), First dose on Sun02/25/21 at 0600, Administer on an empty stomach, preferably 30 minutes before breakfast. Take 4 hours apart from antacids, iron and calcium products. 0509 (Given - Provider: Ana Power RN) 0526 (Given - Provider: Ana Power RN) 0558 (Given - Provider: Ana Power RN) multivit tivtdzgt-lyvk-XG-calciu m (THERA-M) tablet 1 tablet 1 tablet, oral, Daily, First dose on Sun02/25/21 at 0900 09 (Given - Provider: Marion Mora RN) 100 (Given - Provider: Magnolia Ponce RN) 0830 (Given - Provider: Mary Fry RN) pregabalin (LYRICA) capsule 200 mg 200 mg, oral, 2 times daily, First dose on Sun02/24/21 at 2200 09 (Given - Provider: Marion Mora RN)2014 (Given - Provider: Ana Power RN) 100 (Given - Provider: Magnolia Ponce RN)2102 (Given - Provider: Ana Power RN) 0830 (Given - Provider: Mary Fry, CACHORRO) primidone (MYSOLINE) tablet 50 mg 50 mg, oral, Nightly, First dose on Sun02/24/21 at 2200 2014 (Given - Provider: Ana Power RN) 2102 (Given - Provider: Ana Power, CACHORRO) propranoloL (INDERAL) tablet 60 mg 60 mg, oral, 2 times daily, First dose on Sun02/25/21 at 0900, Hold for systolic blood pressure less than 120 or pulse less than 55. 09 (Given - Provider: Marion Mora RN)2014 (Given - Provider: Ana Power RN) 0957 (Not Given - Provider: Magnolia Ponce RN - Reason: Order parameters not met)2103 (Given - Provider: Ana Power RN) 0820 (Not Given - Provider: Mary Fry RN - Reason: Order parameters not met) rosuvastatin (CRESTOR) tablet 10 mg 10 mg, oral, Nightly, First dose on Sun02/24/21 at 2200 2014 (Given - Provider: Ana Power RN) 2102 (Given - Provider: Aan Power RN) sodium chloride 0.9% flush 0.5-20 mL 0.5-20 mL, intra-catheter, Every 8 hours scheduled, First dose on Sun02/24/21 at 2200, Flush volume based on line type and size. 0448 (Not Given - Provider: Ana Power RN - Reason: IV Infusing)1543 (Given - Provider: Marion Mora RN)202 (Given - Provider: Ana Power RN) 0451 (Not Given - Provider: Ana Power RN - Reason: Other)1511 (Given - Provider: Mary Fry RN)211 (Not Given - Provider: Ana Power RN - Reason: Other) 0713 (Not Given - Provider: Mary Fry RN - Reason: Other - Comment: previous shift)1353 (Given - Provider: Mary Fry RN) spironolactone (ALDACTONE) tablet 50 mg 50 mg, oral, Daily, First dose on Sun02/25/21 at 0900, On hold since Sun02/25/2021 at 0858 until manually unheld 0858 (Held by Provider - Provider: Cece Veras MD - Reason: Other - Comment: Hyperkalemia and a)0900 (Dose Auto Held - Provider: Cece Veras MD) 0900 (Dose Auto Held - Provider: Cece Veras MD) 0900 (Dose Auto Held - Provider: Cece Veras MD) PRN Medication Order 02/25/2021 02/26/2021 02/27/2021 acetaminophen (TYLENOL) tablet 650 mg 650 mg, oral, Every 4 hours PRN, 1st line for pain, headaches, fever, fever greater than 38.3 C, Starting on Sun02/24/21 at 1953, Do not exceed 4000 mg of acetaminophen in 24 hours, Indications: Fever, Pain albuterol HFA (PROVENTIL HFA,VENTOLIN HFA,PROAIR HFA) 90 mcg/actuation inhaler 2 puff 2 puff, inhalation, Every 4 hours PRN (therapist respiratory), wheezing, Starting on Sun02/25/21 at 1300 HYDROcodone-acetaminophen (NORCO) 5-325 mg per tablet 1 tablet 1 tablet, oral, Every 4 hours PRN, 1st line for pain, Starting on Bernarda 02/24/21 at 1952, Indications: Pain 0509 (Given - Provider: Ana Power RN)0918 (Given - Provider: Marion Mora, CACHORRO)1637 (Given - Provider: Marion Mora RN)2026 (Given - Provider: Ana Power RN) 0526 (Given - Provider: Ana Power RN)1337 (Given - Provider: Mary Fry, CACHORRO)1926 (Given - Provider: Ana Power RN) 0131 (Given - Provider: Ana Power RN)0601 (Given - Provider: Ana Power RN)1014 (Given - Provider: Mary Fry, CACHORRO)1532 (Given - Provider: Mary Fry RN)1949 (Given - Provider: Odalis Grajeda RN) lidocaine (XYLOCAINE) 10 mg/mL (1 %) injection 2-10 mg 2-10 mg (0.2-1 mL), other, Once as needed, pain with IV placement, Starting on Sun02/24/21 at 1215, For 1 dose, Administer volume needed to infiltrate IV site. prochlorperazine (COMPAZINE) injection 5 mg(Linked Group 1) 5 mg, intravenous, Administer over 2 Minutes, Every 6 hours PRN, nausea, vomiting, Use if unable to tolerate PO, Starting on Sun02/24/21 at 1953, Indications: Nausea and Vomiting prochlorperazine (COMPAZINE) tablet 5 mg(Linked Group 1) 5 mg, oral, Every 6 hours PRN, nausea, vomiting, Starting on Bernarda 02/24/21 at 1953, Indications: Nausea and Vomiting ramelteon (ROZEREM) tablet 8 mg 8 mg, oral, Nightly PRN, sleep, Starting on Sun02/24/21 at 195, Indications: Sleep-Onset Insomnia 2103 (Given - Provider: Ana Power, CACHORRO) senna-docusate (PERICOLACE) 8.6-50 mg per tablet 1 tablet 1 tablet, oral, 2 times daily PRN, constipation, Starting on Sun02/24/21 at 195, Indications: constipation 1637 (Given - Provider: Marion Mora RN) sodium chloride 0.9% flush 0.5-20 mL 0.5-20 mL, intra-catheter, As needed, line care, Starting on Sun02/24/21 at 1215, Flush volume based on line type and size. Flush before and after each use. sodium chloride 0.9% flush 0.5-20 mL 0.5-20 mL, intra-catheter, As needed, line care, Starting on Sun02/24/21 at 195, Flush volume based on line type and size. Flush before and after each use. tc-99m macroaggregated albumin (MAA) injection 6 millicurie (COMPLETED) 6 millicurie, intravenous, Once in imaging, radiopharmaceutical, Starting on Sun02/25/21 at 1336, For 1 dose, Indications: Diagnostic Radiography 1336 (Given - Provider: RT Abbey) Linked Groups Order Group 1: prochlorperazine (COMPAZINE) tablet 5 mgJump to med 5 mg, oral, Every 6 hours PRN, nausea, vomiting, Starting on Sun02/24/21 at 195, Indications: Nausea and Vomiting Or prochlorperazine (COMPAZINE) injection 5 mgJump to med 5 mg, intravenous, Administer over 2 Minutes, Every 6 hours PRN, nausea, vomiting, Use if unable to tolerate PO, Starting on Sun02/24/21 at 1952, Indications: Nausea and Vomiting documented in this encounter Orders Medications Ordered That Regan ht Not Have Been Administered Count Last Ordered Date First Ordered Date albuterol HFA (PROVENTIL HFA ,VENTOLIN HFA,PROAIR HFA) 90 mcg/actuation inhaler 2 puff 2 02/25/2021 ipratropium-albuteroL (DUO-N EB) 0.5-2.5 mg/3 mL nebulizer solution - ADS Override Pull 1 02/25/2021 ipratropium-albuteroL (DUO-N EB) 0.5-2.5 mg/3 mL nebulizer solution 3 mL 1 02/25/2021 acetaminophen (TYLENOL) tablet 650 mg 1 11/2020 ceFAZolin (ANCEF) 1 gram/10 mL in sterile water (premix) 3,000 mg 1 02/24/2021 dextrose (D10W) 10% bolus 250 mL 1 02/25/20 21 dextrose (GLUTOSE) 40 % gel 15 g 1 02/25/20 21 diphenhydrAMINE (BENADRYL) i njection 12.5 mg 1 02/24/2021 fentaNYL (SUBLIMAZE) 50 mcg/ mL preservative free injection - ADS Override Pull 1 02/24/2021 fentaNYL (SUBLIMAZE) preserv ative free injection 25 mcg 1 02/24/2021 glucagon injection 1 mg 1 02/24/2021 heparin 5,000 Units in sodiu m chloride 0.9% 1,000 mL solution 1 02/24/2021 hydrALAZINE (APRESOLINE) injection 5 mg 1 1 04/27/2020 HYDROmorphone (DILAUDID) 2 m g/mL injection - ADS Override Pull 1 02/24/2021 HYDROmorphone (DILAUDID) injection 0.2 mg 1 02/24/2021 HYDROmorphone (DILAUDID) injection 0.4 mg 1 02/24/2021 insulin lispro (HumaLOG, ADM ELOG) 100 unit/mL injection 1-5 Units 1 02/24/2021 labetaloL (NORMODYNE,TRANDAT E) injection 5 mg 1 02/24/2021 lidocaine (XYLOCAINE) 10 mg/ mL (1 %) injection 2-10 mg 1 02/24/2021 meperidine (DEMEROL) preserv ative free injection 12.5 mg 1 02/24/2021 naloxone (NARCAN) 0.4 mg/mL injection 0.04-0.4 mg 1 02/24/2021 ondansetron (ZOFRAN) injection 4 mg 1 02/24 prochlorperazine (COMPAZINE) injection 5 mg 2 02/24/2021 prochlorperazine (COMPAZINE) tablet 5 mg 1 02/24/2021 sodium chloride 0.9% flush 0.5-20 mL 2 11/2020 spironolactone (ALDACTONE) tablet 50 mg 1 1 04/27/2020 Imaging Orders Without Results Count Last Order ed Date First Ordered Date HOME O2 EVAL (DESATURATION SCREEN) 1 2020 General Supply Count Last Ordered Date First Or dered Date OXYGEN 1 02/27/2021 Diet Count Last Ordered Date First Orde red Date ADULT DISCHARGE DIET 2 02/27/2021 021 Nursing Count Last Ordered Date First Orde red Date DISCHARGE ACTIVITY 3 02/27/2021 DISCHARGE CALL PROVIDER 9 02/27/202111/2020 DISCHARGE INSTRUCTIONS 1 02/27/2021 DISCHARGE DRESSING 4 02/24/2021 FOLLOW UP WITH ESTABLISHED PROVIDER 1 02/24 TELEMETRY MONITORING 1 02/24/2021 Consult Count Last Ordered Date First Orde red Date IP CONSULT TO PULMONOLOGY 1 02/24/2021 Admission Count Last Ordered Date First Orde red Date ADMIT TO INPATIENT 2 02/26/2021 INITIATE OBSERVATION SERVICES 1 02/24/2021 Discharge Count Last Ordered Date First Orde red Date DISCHARGE PATIENT 2 02/27/2021 02/24/2021 CORE MEASURES Count Last Ordered Date First Ord ered Date REASON FOR NO VTE PROPHYLAXI S - HOSPITAL ADMISSION - MEDICATIONS 1 02/24/2021 documented in this encounter Care Teams Medical Consultant Relationship Specialty Start Date End Date Gaudencio Miranda MD [address] [place] [id number] PCP - General 07/25/16 [place] [address] [place] [address] [address] Surgeon Surgery 02/24/21 documented as of this encounter
--- OUTSIDE RECORDS SUMMARY | 2024-03-07 14:13 | XMS_ITS | Encounter Summary ---
Author Organization [facility] Healthcare Address [address] [place] [address] Care Team Providers Care Recorder Helper [employer]ing Name Role Phone Gaudencio Miranda MD Primary Care Provider [phone] Herberth Rodgers MD Unavailable [phone] Reason for Visit * Auth/Cert Specialty Diagnoses / Procedures Referred By Contmarilee t Referred To Contact Diagnoses End stage renal disease (CMS/HCC) (HCC) End stage renal disease (CMS/HCC) (HCC) [N18.6] Procedures TN CREAT AV FISTULA,AUTOGENOUS GRAFT TN CREAT AV FISTULA,NON-AUTOGENOUS GRAFT LEFT UPPER EXTREMITY ARTERIOVENOUS FISTULA CREATION Referral ID Status Reason Start Date Expiration Date Visits Re quested Visits Authorized [id number] 1 1 Encounter Details Date Type Department Care Team (Late st Contact Info) Description 02/24/2021 1:15 PM FITNESS SPECIALIST - 02/24/2021 3:00 PM FITNESS SPECIALIST Surgery [facility] OR [address] [place] [address] Herberth Rodgers MD [address] [address] LEFT UPPER EXTREMITY ARTERIOVENOUS FISTULA CREATION Surgery Details Date/Time Status Location OR Service Patient Class Case Cl ass Case Type Trauma Case? 02/24/2021 1:15 PM Posted [facility] OR Vascular Outpatient Elective Panel 1 Procedure LRB Anes Op Region Wound Class Comments LEFT UPPER EXTREMITY ARTERIO VENOUS FISTULA CREATION Left General Elbow Class I - Clean Surgeon Surgeon Role Service Panel Herberth Rodgers MD Primary Vascular 1 documented in this encounter Social History Tobacco [...] on file Legal Sex Female 12:59 AM FITNESS SPECIALIST Gender Identity Not on file Sexual Orientation Not on file documented as of this encounter Last Filed Vital Signs Vital Sign Reading Time Taken Comments Blood Pressure 148/70 02/24/2021 12:36 PM FITNESS SPECIALIST Pulse 71 02/24/2021 12:48 PM FITNESS SPECIALIST Temperature 37.1 ??C (98.8 ??F) 02/24/2021 12:[address] Respiratory Rate 18 02/24/2021 12:36 PM FITNESS SPECIALIST Oxygen Saturation 96% 02/24/2021 12:36 PM FITNESS SPECIALIST Inhaled Oxygen Concentration - - Weight - - Height - - Body Mass Index - - documented in this encounter Discharge Summaries * [...] supplemental O2 with clinic follow up with park keeper for evaluation and management of Lung mass/fibrosis [...] Your Medications These medications were sent to [id number] - [place], [place] - [address] [facility] [address] [facility] [id number] ?? albuterol HFA 90 mcg/actuation inhaler ?? [...] Center 03/09/2021 11:00 AM Herberth Rodgers MD [facility] 120 MG Decent 08/01/2021 11:00 AM Stacy Peña MD MG CAR MRYVL MG Decent Contact Information for Follow-ups Herberth Rodgers MD Specialty: Surgery, Vascular Surgery, General Surgery Relationship: Surgeon [address] [place] [address] DR [address] [facility] [address] Next Steps: Follow up Comments: Follow-up with Dr. Rodgers in office within 1-2 weeks. Please call for appointment. Questions: To provider: HERBERTH RODGERS Salik, MD Specialty: Pulmonary Disease, Internal Medicine, Critical Care Med [facility] [address] [place] [facility] [address] Next Steps: Schedule an appointment as soon as possible for a visit in 2 week(s) Gaudencio Miranda MD Specialty: Family Medicine, Internal Medicine Relationship: PCP - General [address] [place], [place] [address] [address] Next Steps: Follow up in 1 week(s) [...] validated. Cece Veras MD 10:30 PM 02/27/2021 [facility] Hospitalist Group ESS SPECIALIST documented in this encounter Discharge Instructions * Attachments The following attachments cannot be sent through Care Everywhere. * Arteriovenous Fistula Creation for Hemodialysis (Discharge Care) (Prydeinig) documented in this encounter Medications at Time [...] 1L at rest and 2L with activity. [facility] faxed clinical information to [facility]. Manager Application Development to bring tank out after everything is received and benefits are verified. [facility] was informed it could be later this evening before everything is verified. KAROL Hays 02/27/2021 4:30 PM ESS SPECIALIST * Vance Turcios, SUMI - 02/27/2021 4:04 PM CST [id number] [...] NC w/ activity $ Oximetry Multiple Yes ESS SPECIALIST * Padmini Trinh MD - 02/27/2021 1:52 [...] Right arm Pulse: 60 59 65 Resp: 14 Temp: 36.6 ??C (97.9 ??F) 36.4 [...] to the use of voice recognition software. ESS SPECIALIST * Anne Gottlieb, SECRETARY RECEPTIONIST - 02/27/2021 9:55 AM CST 02/27/21 0922 PT Last Visit Session Type Treatment PT Received On 02/27/21 Safe Environment Arm Band Checked Subjective Agreeable to Therapy Precautions Precautions Fall risk Weight Bearing Restrictions Yes RUE Weight Bearing Other (Comments) (less than 10 lb on left UE) Precaution Comments (02,) Activity Tolerance Endurance Tolerates less than 10 [...] Date Expected End Date End Date PT [facility] [place] 02/25/21 03/04/21 -- Goal Details: Will perform AAROM/AROM ex x B LE x 10 reps until indep - Goal Start Date Expected End Date End Date PT [facility] [place] 02/25/21 03/04/21 -- Goal Details: Will transfer bed<>chair with wheeled walker and min assist of 1 and cues Goal Start Date Expected End Date End Date PT [facility] 3 02/25/21 03/04/21 -- Goal Details: Will amb 50 ft with wheeled walker and min assist of 1 and cues Pt progressing towards all goals ESS SPECIALIST * Cece Veras MD - 02/27/2021 7:21 [...] Complete W Doppler/CF Result Date: 02/07/2021 Narrative: [facility] Medical Group Cardiology [address], [place] [address] [address], [place] [address] P:[phone] P:[phone] Echocardiographic Report Patient Name: PEG SON : 1950 Study Date: 02/07/2021 1:35:00 PM Gender: F Tech: Location: [place] Ref.Provider: STACY PEÑA Height(Cm): 173 BSA: 2.43 [...] Findings: Interpretation Site: Exam was interpreted at [facility]. Left Ventricle: Normal left ventricular systolic function. [...] MD, [facility] 2021-02-07 19:19:45 FITNESS SPECIALIST Current Facility-Administered Medications Medication Dose Route Frequency [...] Kiera Quintana MD 2,000 Units at 02/26/21 1003 ??? DULoxetine DR (CYMBALTA) extended release capsule [...] Once PRN Kiera Quintana MD ??? multivit xgvmxwlp-ncqf-XO-calcium (THERA-M) tablet 1 tablet 1 tablet oral Daily Kiera Quintana MD 1 tablet at 02/26/21 1003 ??? pregabalin (LYRICA) capsule 200 mg 200 [...] tablet 60 mg 60 mg oral BID Kirea Quintana MD 60 mg at 02/26/212103 ??? ramelteon (ROZEREM) tablet 8 mg 8 mg oral Nightly PRN Kiera Quintana MD 8 mg at 02/26/212103 ??? rosuvastatin (CRESTOR) tablet 10 mg 10 mg oral Nightly Kiera Quintana MD 10 mg at 02/26/212102 ??? senna-docusate (PERICOLACE) 8.6-50 mg per tablet 1 tablet 1 tablet oral BID PRN Kiera Quintana MD 1 tablet at 02/25/211636 ??? sodium chloride 0.9% flush 0.5-20 mL [...] Problem: Acute respiratory failure with hypoxia (CMS/HCC) ([facility]) Active Problems: Fibromyalgia Other hyperlipidemia End stage renal disease (CMS/HCC) ([facility]) Hypoxia Resolved Problems: No resolved hospital problems. [...] Cymbalta Hypothyroidism Continue levothyroxine Voice recognition software [employer] was used dictate and transcribe this document. Metal Ceiling Hanger variances may occur. Despite proofreading, typographical errors may occur. Cece Veras MD 02/27/2021 7:21 AM ESS SPECIALIST * Padmini Trinh MD - 02/26/2021 1:23 [...] Patient Position: Pulse: 64 60 62 Resp: 14 18 16 Temp: 36.3 ??C (97.3 ??F) 36.6 [...] to the use of voice recognition software. ESS SPECIALIST ESS SPECIALIST * Pieter Funes, SECRETARY RECEPTIONIST - 02/26/2021 10:20 AM CST Physical Therapy [...] Date Expected End Date End Date PT [facility] 1 02/25/21 03/04/21 -- Goal Details: Will perform AAROM/AROM ex x B LE x 10 reps until indep Goal Start Date Expected End Date End Date PT [facility] 2 02/25/21 03/04/21 -- Goal Details: Will transfer bed<>chair with wheeled walker and min assist of 1 and cues met Goal Start Date Expected End Date End Date PT [facility] 3 02/25/21 03/04/21 -- Goal [...] posted at bedside and within medical record. ESS SPECIALIST * Андрей Valdes MD - 02/26/2021 8:07 AM CST Vascular Surgery Daily Progress Patient Name/MRN: Peg Son [id number] Treatment Team: Vascular Surgery Attending: Cece Veras MD Today's Date: 02/26/2021 Room/Bed: [place] [id number] Admit Date: 02/24/2021 Code Status: Full Code [...] Daily Kiera Quintana MD 2,000 Units at 02/25/2118 ??? DULoxetine DR (CYMBALTA) extended release capsule [...] Once PRN Kiera Quintana MD ??? multivit mqrvsdjg-iayf-RR-calcium (THERA-M) tablet 1 tablet 1 tablet oral [...] mL 0.5-20 mL intra-catheter Q8H QUINTON Kiera uQintana MD 10 mL at 02/25/212021 ??? sodium [...] As per medical consultants Андрей Valdes MD ESS SPECIALIST * Cece Veras MD - 02/26/2021 7:21 [...] EKG/Min 68 BPM Atrial Rate 68 BPM TN-Interval (MSEC) 198 ms QRS-Interval (MSEC) 104 ms QT-Interval (MSEC) 386 ms QTc 410 ms P Tyler 76 degrees R Tyler -47 degrees T Tyler 42 degrees Diagnosis Normal sinus rhythm Left [...] Complete W Doppler/CF Result Date: 02/07/2021 Narrative: [facility] Medical Group Cardiology [address] [facility] [address] [id number] [address] [facility] [address] [address] P:[phone] P:[phone] Echocardiographic Report Patient Name: PEG SON : 1950 Study Date: 02/07/2021 1:35:00 PM Gender: F Tech: Location: [place] Ref.Provider: STACY PEÑA Height(Cm): 173 BSA: 2.43 [...] Findings: Interpretation Site: Exam was interpreted at [facility]. Left Ventricle: Normal left ventricular systolic function. [...] MD, [facility] 2021-02-07 19:19:45 FITNESS SPECIALIST Current Facility-Administered Medications Medication Dose Route Frequency [...] Once PRN Kiera Quintana MD ??? multivit ewjtrize-oake-MZ-calcium (THERA-M) tablet 1 tablet 1 tablet oral [...] Continuous Kiera Quintana MD 30 mL/hr at 02/24/212347 30 mL/hr at 02/24/212347 ??? [Held by Provider] spironolactone (ALDACTONE) tablet 50 mg 50 mg oral Daily Kiera Quintana MD A/P: MDM Principal Problem: Acute respiratory failure with hypoxia (CMS/HCC) ([facility]) Active Problems: Fibromyalgia Other hyperlipidemia End stage renal disease (CMS/HCC) ([facility]) Resolved Problems: No resolved hospital problems. Acute [...] Cymbalta Hypothyroidism Continue levothyroxine Voice recognition software [employer] was used dictate and transcribe this document. Metal Ceiling Hanger variances may occur. Despite proofreading, typographical errors may occur. Cece Veras MD 02/26/2021 7:21 AM ESS SPECIALIST * Ailyn Rainey RN - 02/25/2021 3:31 [...] transport arranged?: No (02/24/212102) Health Insurance Coverage: [facility] Medicare Prescription Coverage: [facility] Primary Care Provider: Gaudencio Miranda MD Prior [...] and To assure access to community resources. Ialyn S. Redd, RN ESS SPECIALIST * Parveen Garcias - 02/25/2021 10:09 AM CST Pt appreciated the visit but she did not indicate a desire for spiritual support. 02/25/21 1000 Time Spent Start Time 1009 Patient Spiritual Assessment Spirituality Assessed Yes Yazidism Affiliation None Active in Jewish No Clinical Encounter Type Visited With Patient Response Type Routine visit ESS SPECIALIST * Ashli Mora, PT - 02/25/2021 8:53 AM CST [...] to upper level. Prior Function Level of Thor Needs assistance with ADLs;Dependent with homemaking;Independent with [...] strength;Decreased endurance;Impaired balance;Decreased mobility;Pain Recommendation/Plan PT Recommendation/Plan Shelter Facility PT Frequency 5-7x/wk Treatment/Interventions Balance Training;Bed mobility;Endurance training;Functional activity;Functional transfer training;Gait training;Strengthening;Therapeutic activity;Therapeutic exercise;Transfer training PT - Next Appointment 03/11/21 PT Evaluation Complete Yes Multi-Disciplinary Problems (from Physical Therapy) Active Problems Problem: [place] [facility] Start Date: 02/25/21 Goal Start Date Expected End Date End Date PT [facility] 1 02/25/21 03/04/21 -- Goal Details: Will perform AAROM/AROM ex x B LE x 10 reps until indep Goal Start Date Expected End Date End Date PT [facility] 2 02/25/21 03/04/21 -- Goal Details: Will transfer bed<>chair with wheeled walker and min assist of 1 and cues Goal Start Date Expected End Date End Date PT [facility] 3 02/25/21 03/04/21 -- Goal [...] posted at bedside and within medical record. ESS SPECIALIST * Kelsea Chung, OT - 02/25/2021 8:52 AM CST Occupational Therapy 02/25/21 0800 General Chart Reviewed Yes Session Type Evaluation [...] in the home. Prior Function Level of Thor Independent functional transfers;Independent with ambulation;Needs assistancewith ADLs;Needs [...] Plan of care initiated Recommendation/Plan OT Recommendation Shelter [facility] OT Recommendation/Plan Comments Pt presents with functional decline, hx of falls, and decreased safety awareness; will benefit from SNF/rehab services at [place] to promote return to PLOF/daily routine. OT Frequency 3-5x/wk Treatment/Interventions ADL/IADL retraining;Balance Training;Bed mobility;Endurance training;Compensatory technique education;Equipment eval/education;Functional activity;Functional mobility training;Functional transfer training;Parent/caregiver training and education;Strengthening;Therapeutic activity;Therapeutic exercise;Transfer training OT - Next Appointment 03/11/21 OT Evaluation Complete Yes Multi-Disciplinary Problems (from Occupational Therapy) Active Problems Problem: OT Misc Start Date: 02/25/21 Goal Start Date Expected End Date End Date OT [facility] 1 02/25/21 03/04/21 -- Goal Details: 1) UE AND LE ADL FROM CHAIR WITH MIN ASSIST WITH WW AND AE PRN. Goal Start Date Expected End Date End Date OT [facility] 2 02/25/21 03/04/21 -- Goal Details: 2) FUNCTIONAL MOBILITY TO/FROM BATHROOM AND ALL ASPECTS TOILETING SBA WITH DME. Goal Start Date Expected End Date End Date OT [facility] 3 02/25/21 03/04/21 -- Goal Details: 3) STAND AT SINK X4 MIN FOR ADL WITH GOOD BALANCE. Goal Start Date Expected End Date End Date [facility] 4 02/25/21 03/04/21 -- Goal Details: 4) [...] level of functional performance prior to evaluation. ESS SPECIALIST * Cece Veras MD - 02/25/2021 8:44 [...] Complete W Doppler/CF Result Date: 02/07/2021 Narrative: [facility] Medical [facility] Cardiology [address], [place] [address] [address], [address], [place] [address] P:[phone] P:[phone] Echocardiographic Report Patient Name: PEG SON : 1950 Study Date: 02/07/2021 1:35:00 PM Gender: F Tech: Location: [place] Ref.Provider: STACY PEÑA Height(Cm): 173 BSA: 2.43 [...] Findings: Interpretation Site: Exam was interpreted at [facility]. Left Ventricle: Normal left ventricular systolic function. [...] MD, [facility] 2021-02-07 19:19:45 FITNESS SPECIALIST Current Facility-Administered Medications Medication Dose Route Frequency [...] 2-10 mg 0.2-1 mL other Once PRN iKera Quintana MD ??? multivit ruxdorng-sovj-QR-calcium (THERA-M) tablet 1 tablet 1 tablet oral Daily Kiera Quintana MD ??? pregabalin (LYRICA) capsule 200 mg 200 mg oral BID Kiera Quintana MD 200 mg at 02/24/21 2345 ??? primidone (MYSOLINE) tablet 50 mg 50 mg oral Nightly Kiera Quintana MD 50 mg at 02/24/21 2345 ??? prochlorperazine (COMPAZINE) tablet 5 mg 5 [...] Other hyperlipidemia End stage renal disease (CMS/HCC) ([facility]) Resolved Problems: No resolved hospital problems. Acute [...] Cymbalta Hypothyroidism Continue levothyroxine Voice recognition software [employer] was used dictate and transcribe this document. Metal Ceiling Hanger variances may occur. Despite proofreading, typographical errors may occur. Cece Veras MD 02/25/2021 8:44 AM ESS SPECIALIST documented in this encounter H&P Notes * [...] 12/2020 Previous surgery cancelled R/T possible CP. [employer] Metals Hand Engraver ruled out heart disease, testing negative. ??? [...] FUSION Spinal Arthrodesis - (Added by Conv) ??? VAGINAL DELIVERY x2 Medications Prior [...] Problems: Fibromyalgia-continue Cymbalta, Lyrica, and as needed Wishek Other hyperlipidemia-continue rosuvastatin End stage renal disease [...] formulating a treatment plan Voice recognition software [email or web address] Direct may have been used dictate and transcribe this document. Metal Ceiling Hanger variances may occur. Despite proofreading, typographical errors may occur ESS SPECIALIST * Herberth Rodgers MD - 02/24/2021 2:56 PM CST Vascular Surgery History and Physical Patient Name/MRN: Peg Son [id number] Treatment Team: Vascular Surgery Attending: Herberth Rodgers MD Today's Date: 02/24/2021 Admitting Service: Surgery Admitting location: B OR POOL/B OR POOL Admit Date: 02/24/2021 Code Status: No Order [...] 12/2020 Previous surgery cancelled R/T possible CP. [employer] Hand Engraver ruled out heart disease, testing negative. ??? [...] Gaudencio Miranda MD Primary Care Physician number: [phone] Review of Systems: Constitutional: Negative for activity [...] Principal Problem: End stage renal disease (CMS/HCC) ([facility]) Impression: End-stage renal disease Plan: Left arm AV fistula possible graft. The procedure and all risks have been explained. ESS SPECIALIST documented in this encounter Consult Notes * [...] to the use of voice recognition software. ESS SPECIALIST documented in this encounter Nursing Notes * Ana Power RN - 02/25/2021 5:51 AM CST Patient AOx4, on 3L nc. Vitals stable, received prn Wishek for back pain. Abnormal abg- results reported to Dr. Quintana. Left arm nwb after av fistula creation, +1 radial pulse, minimal pain. Historyof frequent falls at home my knees give out . PT and OT to evaluate. Distended abdomen, says she has difficulty voiding completely. Pt also says she she has a hard time swallowing sometimes. Passed bedside swallow eval. ESS SPECIALIST * Ana Marlow RN - 02/24/2021 6:43 [...] hospitalist for eval and heagreed. Hospitalist paged. ESS SPECIALIST documented in this encounter Miscellaneous Notes * [...] and mental status changes, document and update oncology social worker and MD as needed 4. Provide in [...] for the Shift: fall prevention, pain management ESS SPECIALIST * Elizabeth Vergara MSW - 02/27/2021 4:10 PM CST Images [...] 1605 $ Oximetry Multiple Yes 02/27/21 1603 ESS SPECIALIST * Plan of Care - Ana Power, CACHORRO - 02/27/2021 6:15 AM CST Problem: Health Behavior: Goal: Understanding of discharge needs will improve Outcome: Progressing Problem: Safety: Goal: Will remain free from falls Outcome: Progressing Problem: Activity: Goal: Mobility will improve Outcome: Progressing ESS SPECIALIST * Plan of Care - Mary Fry [...] and mental status changes, document and update oncology social worker and MD as needed 4. Provide in [...] for the Shift: fall prevention, pain management ESS SPECIALIST * Plan of Care - Ana Power [...] to monitor. Weaned to 1L at 5am. ESS SPECIALIST ESS SPECIALIST * Plan of Care - Marion Mora RN - 02/25/2021 4:31 PM FITNESS SPECIALIST Problem: Facility Isolation Psychosocial Wellbeing Description: Resident [...] and mental status changes, document and update oncology social worker and MD as needed 4. Provide in [...] air. Patient currently on 2L/min vianasal cannula. ESS SPECIALIST * Significant Event - Mirian Deras RRT - 02/24/2021 11:38 PM CST Notified RN Ana Waldron of critical results ESS SPECIALIST * Perioperative Nursing Note - Diana Dolan RN - 02/24/2021 8:20 PM FITNESS SPECIALIST Pt tx to inpatient floor. Bedside shift report given to RN ESS SPECIALIST * Perioperative Nursing Note - Radha Florez RN - 02/24/2021 5:35 PM FITNESS SPECIALIST Pt placed in recliner at this time. Sats drop intot the 70's on RA, pt was placed on 3L per NC, given incentive spirometer and placed in recliner. Sats on 3L per NC is 97%. ESS SPECIALIST * Op Note - Herberth Rodgers MD [...] PM This note was transcribed using the Tool[employer] voice recognition system without human mechanical systems designer. In an effort to expedite patient care, this report has not been adjusted for typographical, grammatical, and syntax by a trained medical health researcher. ESS SPECIALIST * Pre-Procedure Instructions - Eduarda Terry RN - 02/22/2021 12:40 PM FITNESS SPECIALIST We are pleased that you and your doctor have chosen [facility] for your surgery. We hope that the [...] please call us. We can be reached [phone]. [email or web address] [email or web address] documented in this encounter Plan of Treatment Not on file documented as of this encounter Procedures Procedure Name Priority Date/Time Associated Diagnosis Comments HOME O2 EVAL (DESATURATION SCREEN) Routine 02/27/2021 1:52 PM FITNESS SPECIALIST EGFR Routine 02/27/2021 4:40 AM FITNESS SPECIALIST DIFFERENTIAL AUTO Routine 02/27/2021 4:4 0 AM FITNESS SPECIALIST CBC WITH AUTO DIFFERENTIAL Routine 02/27/2021 4:40 AM FITNESS SPECIALIST PHOSPHORUS Routine 02/27/2021 4:40 AM FITNESS SPECIALIST MAGNESIUM Routine 02/27/2021 4:40 AM FITNESS SPECIALIST COMPREHENSIVE METABOLIC PANEL Routine 02/27/2021 4:40 AM FITNESS SPECIALIST EGFR Routine 02/26/2021 5:19 AM FITNESS SPECIALIST DIFFERENTIAL AUTO Routine 02/26/2021 5:1 9 AM FITNESS SPECIALIST CBC WITH AUTO DIFFERENTIAL Routine 02/26/2021 5:19 AM FITNESS SPECIALIST PHOSPHORUS Routine 02/26/2021 5:19 AM FITNESS SPECIALIST MAGNESIUM Routine 02/26/2021 5:19 AM FITNESS SPECIALIST COMPREHENSIVE METABOLIC PANEL Routine 02/26/2021 5:19 AM FITNESS SPECIALIST US VEIN DUPLEX LOWER EXTREMITY BILATERAL COMPLETE IP Routine 02/25/2021 2:27 PM FITNESS SPECIALIST XR CHEST 1 VIEW Routine 02/25/2021 1:42 PM FITNESS SPECIALIST NM PULMONARY PERFUSION IMAGING IP Routine 02/25/2021 1:41 PM FITNESS SPECIALIST ECG 12-LEAD Routine 02/25/2021 7:49 AM FITNESS SPECIALIST EGFR Routine 02/25/2021 5:31 AM FITNESS SPECIALIST DIFFERENTIAL AUTO Routine 02/25/2021 5:3 1 AM FITNESS SPECIALIST PRO B-TYPE NATRIURETIC PEPTIDE Routine 02/25/2021 5:31 AM FITNESS SPECIALIST CBC WITH AUTO DIFFERENTIAL Routine 02/25/2021 5:31 AM FITNESS SPECIALIST PHOSPHORUS Routine 02/25/2021 5:31 AM FITNESS SPECIALIST MAGNESIUM Routine 02/25/2021 5:31 AM FITNESS SPECIALIST COMPREHENSIVE METABOLIC PANEL Routine 02/25/2021 5:[address] CHEST WO CONTRAST IP Routine 02/24/2021 11:10 PM FITNESS SPECIALIST BLOOD GAS, ARTERIAL Timed 02/24/2021 1 0:34 PM FITNESS SPECIALIST CREATION ARTERIOVENOUS FISTULA - ARM 02/24/2021 3:04 PM FITNESS SPECIALIST End stage renal disease (CMS/HCC) (HCC) EGFR STAT 02/24/2021 12:32 PM FITNESS SPECIALIST DIFFERENTIAL AUTO STAT 02/24/2021 12: 32 PM FITNESS SPECIALIST CBC WITH AUTO DIFFERENTIAL STAT 02/24/2021 12:32 PM FITNESS SPECIALIST APTT STAT 02/24/2021 12:32 PM FITNESS SPECIALIST PROTIME-INR STAT 02/24/2021 12:32 PM FITNESS SPECIALIST BASIC METABOLIC PANEL STAT 02/24/2021 12:32 PM FITNESS SPECIALIST documented in this encounter Results * eGFR (02/27/2021 4:40 AM FITNESS SPECIALIST) eGFR 19 mL/min/1.7 3 m2 SIMON ELIZABETH [...] last reviewed 2020 Blood 02/27/2021 4:40 AM FITNESS SPECIALIST 02/27/2021 5:36 AM FITNESS SPECIALIST us Kiera Quintana MD LAB BLOOD ORDERABLE S Final Result [facility] [address] [facility] [facility] [place] [address] * (ABNORMAL) Differential, auto (02/27/2021 4:40 AM FITNESS SPECIALIST) Pathologist [facility] Neutrophil abs 2.8 1.7 - 6.5 K/cumm [facility] Imm gran abs 0.0 0.0 - 0.1 K/cumm [facility] Lymphocyte abs 2.0 0.8 - 3.3 K/cumm [facility] Monocyte abs 0.9(H) 0.2 - 0.8 K/cumm [facility] Eosinophil abs 0.2 0.0 - 0.5 K/cumm [facility] Basophil abs 0.0 0.0 - 0.1 K/cumm [facility] Neutrophil pct 47.5 % [facility] Comment: Interpretive Data Percent cell count reference ranges are not reported, since discordance with absolute values may lead to misinterpretation of CBC data. Current Interpretive Data was last revised on 2017. Imm gran pct 0.2 % [facility] Comment: Interpretive Data Percent cell count reference ranges are not reported, since discordance with absolute values may lead to misinterpretation of CBC data. Current Interpretive Data was last revised on 2017. Lymphocyte pct 33.2 % [facility] Comment: Interpretive Data Percent cell count reference ranges are not reported, since discordance with absolute values may lead to misinterpretation of CBC data. Current Interpretive Data was last revised on 2017. Monocyte pct 14.5 % [facility] Comment: Interpretive Data Percent cell count reference ranges are not reported, since discordance with absolute values may lead to misinterpretation of CBC data. Current Interpretive Data was last revised on 2017. Eosinophil pct 3.9 % [facility] Comment: Interpretive Data Percent cell count reference ranges are not reported, since discordance with absolute values may lead to misinterpretation of CBC data. Current Interpretive Data was last revised on 2017. Basophil pct 0.7 % [facility] Comment: Interpretive Data Percent cell count reference ranges are not reported, since discordance with absolute values may lead to misinterpretation of CBC data. Current Interpretive Data was last revised on 2017. Blood 02/27/2021 4:40 AM FITNESS SPECIALIST 02/27/2021 5:36 AM FITNESS SPECIALIST us Kiera Quintana MD LAB BLOOD ORDERABLE S Final Result [facility] [address] [facility] Department [place] [address] * (ABNORMAL) CBC with auto differential (02/27/2021 4:40 AM FITNESS SPECIALIST) WBC 5.9 3.8 - 9.9 K/cumm [facility] Hgb 13.3 11.9 - 15.5 g/dL [facility] Hct 42.4 35.6 - 45.5 % [facility] Plt 156 150 - 400 K/cumm [facility] MPV 11.5 9.1 - 12.3 fL [facility] RBC 4.30 3.90 - 5.20 M/cumm [facility] MCV 98.6(H) 81.3 - 96.4 fL [facility] MCH 30.9 27.1 - 33.3 pg [facility] MCHC 31.4(L) 32.3 - 35.7 g/dL [facility] RDW CV 14.3 11.1 - 14.9 % [facility] RDW SD 51.8(H) 35.7 - 48.1 fL [facility] NRBC abs 0.00 0.00 - 0.01 K/cumm [facility] Blood 02/27/2021 4:40 AM FITNESS SPECIALIST 02/27/2021 5:36 AM FITNESS SPECIALIST Kiera Quintana MD LAB BLOOD ORDERABLE S Final Result Performing Organization Address City/[facility]/ZIP Co de Phone Number [address] [facility] [address] * Phosphorus (02/27/2021 4:40 AM FITNESS SPECIALIST) Phosphorus, pl 4.5 2.3 - 4.5 mg/dL [facility] Blood 02/27/2021 4:40 AM FITNESS SPECIALIST 02/27/2021 5:36 AM FITNESS SPECIALIST Kiera Quintana MD LAB BLOOD ORDERABLE S Final Result Performing Organization Address [facility] Co de Phone Number [address] [facility] [address] * Magnesium (02/27/2021 4:40 AM FITNESS SPECIALIST) Magnesium 2.1 1.4 - 2.5 mg/dL [facility] Blood 02/27/2021 4:40 AM FITNESS SPECIALIST 02/27/2021 5:36 AM FITNESS SPECIALIST us Kiera Quintana MD LAB BLOOD ORDERABLE S Final Result Performing Organization Address City/[facility] Co de Phone Number [address] [facility] [address] * (ABNORMAL) Comprehensive metabolic panel (02/27/2021 4:40 AM FITNESS SPECIALIST) Pathologist [facility] Sodium 138 135 - 145 mmol/L [facility] Potassium, pl 4.0 3.3 - 4.9 mmol/L [facility] Chloride 98 97 - 110 mmol/L [facility] CO2 30 22 - 32 mmol/L [facility] Anion gap 10 2 - 15 mmol/L [facility] BUN 40(H) 8 - 25 mg/dL [facility] Creatinine 2.50(H) 0.60 - 1.10 mg/dL [facility] Glucose 112 70 - 199 mg/dL [facility] Comment: Interpretive Data Fasting glucose >/= 126 [...] 2017. Calcium 9.0 8.5 - 10.3 mg/dL [facility] Bilirubin, total 0.3 0.1 - 1.2 mg/dL [facility] Protein, pl 6.6 6.5 - 8.5 g/dL [facility] Albumin 3.7 3.5 - 5.0 g/dL [facility] Alk phos 86 40 - 130 Units/L [facility] ALT 6(L) 7 - 45 Units/L [facility] AST 25 10 - 45 Units/L [facility] Blood 02/27/2021 4:40 AM FITNESS SPECIALIST 02/27/2021 5:36 AM FITNESS SPECIALIST us Kiera Quintana MD LAB BLOOD ORDERABLE S Final Result [facility] [address] [facility] Department [place] [address] * eGFR (02/26/2021 5:19 AM FITNESS SPECIALIST) [facility] eGFR 16 mL/min/1.7 3 m2 [facility] Comment: Interpretive Data Reference Interval Normal ?>/= [...] last reviewed 2020 Blood 02/26/2021 5:19 AM FITNESS SPECIALIST 02/26/2021 5:39 AM FITNESS SPECIALIST us Kiera Quintana MD LAB BLOOD ORDERABLE S Final Result Performing Organization Address City/State/[facility] Co de Phone Number [facility] [address] [facility] Department of Laboratories [place], [place] [id number] * Differential, auto (02/26/2021 5:19 AM FITNESS SPECIALIST) Pathologist [facility] Neutrophil abs 3.1 1.7 - 6.5 K/cumm [facility] Imm gran abs 0.0 0.0 - 0.1 K/cumm [facility] Lymphocyte abs 2.1 0.8 - 3.3 K/cumm [facility] Monocyte abs 0.8 0.2 - 0.8 K/cumm [facility] Eosinophil abs 0.1 0.0 - 0.5 K/cumm [facility] Basophil abs 0.0 0.0 - 0.1 K/cumm [facility] Neutrophil pct 50.3 % [facility] Comment: Interpretive Data Percent cell count reference ranges are not reported, since discordance with absolute values may lead to misinterpretation of CBC data. Current Interpretive Data was last revised on 2017. Imm gran pct 0.2 % [facility] Comment: Interpretive Data Percent cell count reference ranges are not reported, since discordance with absolute values may lead to misinterpretation of CBC data. Current Interpretive Data was last revised on 2017. Lymphocyte pct 34.7 % [facility] Comment: Interpretive Data Percent cell count reference ranges are not reported, since discordance with absolute values may lead to misinterpretation of CBC data. Current Interpretive Data was last revised on 2017. Monocyte pct 13.2 % [facility] Comment: Interpretive Data Percent cell count reference ranges are not reported, since discordance with absolute values may lead to misinterpretation of CBC data. Current Interpretive Data was last revised on 2017. Eosinophil pct 1.3 % [facility] Comment: Interpretive Data Percent cell count reference ranges are not reported, since discordance with absolute values may lead to misinterpretation of CBC data. Current Interpretive Data was last revised on 2017. Basophil pct 0.3 % [facility] Comment: Interpretive Data Percent cell count reference ranges are not reported, since discordance with absolute values may lead to misinterpretation of CBC data. Current Interpretive Data was last revised on 2017. Blood 02/26/2021 5:19 AM FITNESS SPECIALIST 02/26/2021 5:39 AM FITNESS SPECIALIST us Kiera Quintana MD LAB BLOOD ORDERABLE S Final Result [facility] [address] [facility] Department [place] [address] * (ABNORMAL) CBC with auto differential (02/26/2021 5:19 AM FITNESS SPECIALIST) WBC 6.1 3.8 - 9.9 K/cumm [facility] Hgb 13.0 11.9 - 15.5 g/dL [facility] Hct 42.1 35.6 - 45.5 % [facility] Plt 144(L) 150 - 400 K/cumm [facility] MPV 11.0 9.1 - 12.3 fL [facility] RBC 4.28 3.90 - 5.20 M/cumm [facility] MCV 98.4(H) 81.3 - 96.4 fL [facility] MCH 30.4 27.1 - 33.3 pg [facility] MCHC 30.9(L) 32.3 - 35.7 g/dL [facility] RDW CV 14.4 11.1 - 14.9 % [facility] RDW SD 52.1(H) 35.7 - 48.1 fL [facility] NRBC abs 0.00 0.00 - 0.01 K/cumm [facility] Blood 02/26/2021 5:19 AM FITNESS SPECIALIST 02/26/2021 5:39 AM FITNESS SPECIALIST Kiera Quintana MD LAB BLOOD ORDERABLE S Final Result Performing Organization Address City/[facility]/ZIP Co de Phone Number [address] [facility] [address] * Phosphorus (02/26/2021 5:19 AM FITNESS SPECIALIST) Phosphorus, pl 4.2 2.3 - 4.5 mg/dL [facility] Blood 02/26/2021 5:19 AM FITNESS SPECIALIST 02/26/2021 5:39 AM FITNESS SPECIALIST Kiera Quintana MD LAB BLOOD ORDERABLE S Final Result [address] [facility] [address] * Magnesium (02/26/2021 5:19 AM FITNESS SPECIALIST) Magnesium 2.3 1.4 - 2.5 mg/dL [facility] Blood 02/26/2021 5:19 AM FITNESS SPECIALIST 02/26/2021 5:39 AM FITNESS SPECIALIST Kiera Quintana MD LAB BLOOD ORDERABLE S Final Result [facility] [address] [facility] Department [place] [address] * (ABNORMAL) Comprehensive metabolic panel (02/26/2021 5:19 AM FITNESS SPECIALIST) Sodium 142 135 - 145 mmol/L [facility] Potassium, pl 4.3 3.3 - 4.9 mmol/L [facility] Chloride 101 97 - 110 mmol/L [facility] CO2 31 22 - 32 mmol/L [facility] Anion gap 10 2 - 15 mmol/L [facility] BUN 37(H) 8 - 25 mg/dL [facility] Creatinine 2.90(H) 0.60 - 1.10 mg/dL [facility] Glucose 103 70 - 199 mg/dL [facility] Comment: Interpretive Data Fasting glucose >/= 126 [...] 2017. Calcium 9.3 8.5 - 10.3 mg/dL [facility] Bilirubin, total 0.3 0.1 - 1.2 mg/dL [facility] Protein, pl 6.2(L) 6.5 - 8.5 g/dL [facility] Albumin 3.6 3.5 - 5.0 g/dL [facility] Alk phos 83 40 - 130 Units/L [facility] ALT 10 7 - 45 Units/L [facility] AST 27 10 - 45 Units/L [facility] Blood 02/26/2021 5:19 AM FITNESS SPECIALIST 02/26/2021 5:39 AM FITNESS SPECIALIST Kiera Quintana MD LAB BLOOD ORDERABLE S Final Result [facility] [place] [address] * US Vein Duplex Lower Extremity Bilateral Complete (02/25/2021 2:27 PM FITNESS SPECIALIST) Anatomical Region Laterality Modality Vascular Bilateral Ultrasound 02/25/2021 Narrative 02/28/2021 2:45 PM FITNESS SPECIALIST [email or web address] Job ID: [id number] [email or web address] Document ID: [id number] Dictated date/time: [id number] REASON FOR STUDY Respiratory failure. No thrombus seen in the common femoral, superficial femoral, popliteal, posterior peroneal or greater saphenous veins bilaterally. IMPRESSION No evidence of deep venous thrombosis in either lower extremity. JOB ID/VF JOB ID: ??[id number] us Cece Veras MD IMG US PROCEDURES Final Result * XR Chest 1 View (02/25/2021 1:42 PM FITNESS SPECIALIST) Anatomical Region Laterality Modality Body, Chest N/A Computed Radiogr aphy 02/25/2021 1:49 PM FITNESS SPECIALIST Narrative 02/25/2021 1:50 PM FITNESS SPECIALIST EXAM DESCRIPTION: ?? XR CHEST 1 VIEW [...] D: ??02/25/2021 1:50 PM T: Report ID: [id number] Reading Location: ??[id number] Procedure Note Brady Holland Jr., MD - [...] by Brady Holland M.D. T: Report ID: [id number] Reading Location: [place] [address] Cece Veras MD IMG XR PROCEDURES Final Result * NM Pulmonary Perfusion Imaging (02/25/2021 1:41 PM FITNESS SPECIALIST) Anatomical Region Laterality Modality Body N/A Nuclear Medicine 02/25/2021 1:48 PM FITNESS SPECIALIST Narrative 02/25/2021 2:00 PM FITNESS SPECIALIST EXAM DESCRIPTION: ?? NM PULMONARY PERFUSION IMAGING [...] D: ??02/25/2021 2:00 PM T: Report ID: [id number] Reading Location: ??[id number] Procedure Note Brady Holland Jr., MD - [...] by Brady Holland M.D. T: Report ID: [id number] Reading Location: [id number] Cece Veras MD [facility] PROCEDURES Final Result * ECG 12 lead (02/25/2021 7:49 AM FITNESS SPECIALIST) Pathologist [facility] Ventricular Rate EKG/Min 68 BPM [facility] Atrial Rate 68 BPM [facility] TN-Interval (MSEC) 198 ms [facility] QRS-Interval (MSEC) 104 ms [facility] QT-Interval (MSEC) 386 ms [facility] QTc 410 ms [facility] P Tyler 76 degrees [facility] R Tyler -47 degrees [facility] T Tyler 42 degrees [facility] Diagnosis Normal sinus rhythm Left anterior fascicular block Abnormal ECG When compared with ECG of 30-DEC-2020 11:29, No significant change was found [facility] 02/25/2021 7:49 AM FITNESS SPECIALIST 02/25/2021 2:22 PM FITNESS SPECIALIST us Kiera Quintana MD ECG ORDERABLES Fin al Result [facility] * eGFR (02/25/2021 5:31 AM FITNESS SPECIALIST) Pathologist [facility] eGFR 20 mL/min/1.7 3 m2 [facility] [...] last reviewed 2020 Blood 02/25/2021 5:31 AM FITNESS SPECIALIST 02/25/2021 6:25 AM FITNESS SPECIALIST Kiera Quintana MD LAB BLOOD ORDERABLE S Final Result [facility] [address] [facility] Department [place] [address] * (ABNORMAL) Differential, auto (02/25/2021 5:31 AM FITNESS SPECIALIST) Neutrophil abs 6.6(H) 1.7 - 6.5 K/cumm [facility] Imm gran abs 0.0 0.0 - 0.1 K/cumm [facility] Lymphocyte abs 1.3 0.8 - 3.3 K/cumm [facility] Monocyte abs 0.4 0.2 - 0.8 K/cumm [facility] Eosinophil abs 0.0 0.0 - 0.5 K/cumm [facility] Basophil abs 0.0 0.0 - 0.1 K/cumm [facility] Neutrophil pct 79.6 % [facility] Comment: Interpretive Data Percent cell count reference ranges are not reported, since discordance with absolute values may lead to misinterpretation of CBC data. Current Interpretive Data was last revised on 2017. Imm gran pct 0.2 % [facility] Comment: Interpretive Data Percent cell count reference ranges are not reported, since discordance with absolute values may lead to misinterpretation of CBC data. Current Interpretive Data was last revised on 2017. Lymphocyte pct 15.5 % [facility] Comment: Interpretive Data Percent cell count reference ranges are not reported, since discordance with absolute values may lead to misinterpretation of CBC data. Current Interpretive Data was last revised on 2017. Monocyte pct 4.6 % [facility] Comment: Interpretive Data Percent cell count reference ranges are not reported, since discordance with absolute values may lead to misinterpretation of CBC data. Current Interpretive Data was last revised on 2017. Eosinophil pct 0.0 % [facility] Comment: Interpretive Data Percent cell count reference ranges are not reported, since discordance with absolute values may lead to misinterpretation of CBC data. Current Interpretive Data was last revised on 2017. Basophil pct 0.1 % [facility] Comment: Interpretive Data Percent cell count reference ranges are not reported, since discordance with absolute values may lead to misinterpretation of CBC data. Current Interpretive Data was last revised on 2017. Blood 02/25/2021 5:31 AM FITNESS SPECIALIST 02/25/2021 6:25 AM FITNESS SPECIALIST us Kiera Quintana MD LAB BLOOD ORDERABLE S Final Result [place] [id number] [facility] [place] [address] * (ABNORMAL) CBC with auto differential (02/25/2021 5:31 AM FITNESS SPECIALIST) WBC 8.3 3.8 - 9.9 K/cumm [facility] Hgb 14.8 11.9 - 15.5 g/dL [facility] Hct 46.7(H) 35.6 - 45.5 % [facility] Plt 205 150 - 400 K/cumm [facility] MPV 11.6 9.1 - 12.3 fL [facility] RBC 4.77 3.90 - 5.20 M/cumm [facility] MCV 97.9(H) 81.3 - 96.4 fL [facility] MCH 31.0 27.1 - 33.3 pg [facility] MCHC 31.7(L) 32.3 - 35.7 g/dL [facility] RDW CV 13.9 11.1 - 14.9 % [facility] RDW SD 49.9(H) 35.7 - 48.1 fL [facility] NRBC abs 0.00 0.00 - 0.01 K/cumm [facility] Blood 02/25/2021 5:31 AM FITNESS SPECIALIST 02/25/2021 6:25 AM FITNESS SPECIALIST us Kiera Quintana MD LAB BLOOD ORDERABLE S Final Result Performing Organization Address City/[facility]/ZIP Co de Phone Number [address] [address] * Phosphorus (02/25/2021 5:31 AM FITNESS SPECIALIST) [facility] Phosphorus, pl 3.6 2.3 - 4.5 mg/dL [facility] Blood 02/25/2021 5:31 AM FITNESS SPECIALIST 02/25/2021 6:25 AM FITNESS SPECIALIST Kiera Quintana MD LAB BLOOD ORDERABLE S Final Result Performing Organization Address City/[facility] Co de Phone Number [address] [facility] [address] * Magnesium (02/25/2021 5:31 AM FITNESS SPECIALIST) [facility] Magnesium 2.2 1.4 - 2.5 mg/dL [facility] Blood 02/25/2021 5:31 AM FITNESS SPECIALIST 02/25/2021 6:25 AM FITNESS SPECIALIST Kiera Quintana MD LAB BLOOD ORDERABLE S Final Result Performing Organization Address City/[facility] Co de Phone Number [address] [address] * (ABNORMAL) Comprehensive metabolic panel (02/25/2021 5:31 AM FITNESS SPECIALIST) [facility] Sodium 140 135 - 145 mmol/L [facility] Potassium, pl 5.1(H) 3.3 - 4.9 mmol/L [facility] Chloride 98 97 - 110 mmol/L [facility] CO2 30 22 - 32 mmol/L [facility] Anion gap 12 2 - 15 mmol/L [facility] BUN 28(H) 8 - 25 mg/dL [facility] Creatinine 2.40(H) 0.60 - 1.10 mg/dL [facility] Glucose 138 70 - 199 mg/dL [facility] Comment: Interpretive Data Fasting glucose >/= 126 [...] 2017. Calcium 9.8 8.5 - 10.3 mg/dL [facility] Bilirubin, total 0.3 0.1 - 1.2 mg/dL [facility] Protein, pl 7.2 6.5 - 8.5 g/dL [facility] Albumin 4.1 3.5 - 5.0 g/dL [facility] Alk phos 92 40 - 130 Units/L [facility] ALT 13 7 - 45 Units/L [facility] AST 23 10 - 45 Units/L [facility] Blood 02/25/2021 5:31 AM FITNESS SPECIALIST 02/25/2021 6:25 AM FITNESS SPECIALIST us Kiera Quintana MD LAB BLOOD ORDERABLE S Final Result [facility] [address] [facility] [place] [address] * (ABNORMAL) Pro B-type natriuretic peptide (02/25/2021 5:31 AM FITNESS SPECIALIST) NT-proBNP 782(H) <=300 pg/mL [facility] Comment: Interpretive Comments: A. Dyspnea in Acute [...] et.al. Eur Heart J. 2006:27:330-337. 2. Cecilia RW, Eileen ESCALONA. J. AM Peace Cardiol: Cardiovasc Imag. 2009;2: 216- 225. Interpretive Data Last Revised Date: 2017. Blood 02/25/2021 5:31 AM FITNESS SPECIALIST 02/25/2021 6:25 AM FITNESS SPECIALIST us Kiera Quintana MD LAB BLOOD ORDERABLE S Final Result [id number] [facility] [place] [address] * CT Chest WO Contrast (02/24/2021 11:10 PM FITNESS SPECIALIST) Anatomical Region Laterality Modality Body N/A Computed Tomogra phy 02/25/2021 9:38 AM FITNESS SPECIALIST Narrative 02/25/2021 10:00 AM FITNESS SPECIALIST EXAM DESCRIPTION: ?? CT CHEST WO CONTRAST [...] D: ??02/25/2021 10:00 AM T: Report ID: [id number] Reading Location: ??[id number] Procedure Note Naveen Kirkpatrick MD - 02/25/2021 [...] 10:00 AM - Electronically signed by Naveen Kirkpatrick M.D. RB T: Report ID: [id number] Reading Location: [place] [address] Kiera Quintana MD IMG CT PROCEDURES F inal Result * (ABNORMAL) Blood gas, arterial (02/24/2021 10:34 PM FITNESS SPECIALIST) pH, Art 7.32(L) 7.35 - 7.45 [facility] PCO2, Arterial 65(H) 35 - 45 mmHg [facility] PO2, Arterial 76(L) 83 - 108 mmHg [facility] HCO3 Art (Calculated) 34(H) 20 - 30 mmol/L [facility] BE, art 5 mmol/L [facility] Comment: Interpretive Data No Reference Range Established Current Interpretive Data was last revised on 2017. Blood 02/24/2021 10:3 4 PM FITNESS SPECIALIST 02/24/2021 10:37 PM FITNESS SPECIALIST Kiera Quintana MD LAB BLOOD ORDERABLE S Final Result Performing Organization Address City/[facility]/ZIP Co de Phone Number [facility] [address] [facility] [employer] [facility] [address] * eGFR (02/24/2021 12:32 PM FITNESS SPECIALIST) Pathologist [facility] eGFR 20 mL/min/1.7 3 m2 [facility] Comment: Interpretive Data Reference Interval Normal ?>/= [...] reviewed 2020 Blood 02/24/2021 12:3 2 PM FITNESS SPECIALIST 02/24/2021 12:36 PM FITNESS SPECIALIST us Herberth Rodgers MD LAB BLOOD ORDERABLES Final Result Performing Organization Address City/[facility]/ZIP Co de Phone Number [facility] [address] [facility] Department of [facility] [address] * (ABNORMAL) Differential, auto (02/24/2021 12:32 PM FITNESS SPECIALIST) [facility] Neutrophil abs 3.4 1.7 - 6.5 K/cumm [facility] Imm gran abs 0.0 0.0 - 0.1 K/cumm [facility] Lymphocyte abs 2.3 0.8 - 3.3 K/cumm [facility] Monocyte abs 1.0(H) 0.2 - 0.8 K/cumm [facility] [facility]ITAL Eosinophil abs 0.2 0.0 - 0.5 K/cumm [facility] Basophil abs 0.0 0.0 - 0.1 K/cumm [facility] Neutrophil pct 49.9 % [facility] Comment: Interpretive Data Percent cell count reference ranges are not reported, since discordance with absolute values may lead to misinterpretation of CBC data. Current Interpretive Data was last revised on 2017. Imm gran pct 0.1 % [facility] Comment: Interpretive Data Percent cell count reference ranges are not reported, since discordance with absolute values may lead to misinterpretation of CBC data. Current Interpretive Data was last revised on 2017. Lymphocyte pct 32.9 % [facility] Comment: Interpretive Data Percent cell count reference ranges are not reported, since discordance with absolute values may lead to misinterpretation of CBC data. Current Interpretive Data was last revised on 2017. Monocyte pct 14.4 % [facility] Comment: Interpretive Data Percent cell count reference ranges are not reported, since discordance with absolute values may lead to misinterpretation of CBC data. Current Interpretive Data was last revised on 2017. Eosinophil pct 2.3 % [facility] Comment: Interpretive Data Percent cell count reference ranges are not reported, since discordance with absolute values may lead to misinterpretation of CBC data. Current Interpretive Data was last revised on 2017. Basophil pct 0.4 % [facility] Comment: Interpretive Data Percent cell count reference ranges are not reported, since discordance with absolute values may lead to misinterpretation of CBC data. Current Interpretive Data was last revised on 2017. Blood 02/24/2021 12:3 2 PM FITNESS SPECIALIST 02/24/2021 12:36 PM FITNESS SPECIALIST us Herberth Rodgers MD LAB BLOOD ORDERABLES Final Result SIMON [address] [place] [address] [place] [address] * Protime-INR (02/24/2021 12:32 PM FITNESS SPECIALIST) [facility] PT 13.0 12.0 - 14.6 sec [facility] INR 1.0 [facility] Comment: Ref Range High Interpretive data Oral anticoagulant therapeutic ranges: Venous thromboembolism prophylaxis or treatment: 2.0-3.0 CARDIOLOGY Standard range: 2.0-3.0 High-intensity range: 2.5-3.5 Refer to indication-specific guidelines for appropriate target ranges for prosthetic heart valve replacement. Current interpretive data was last revised on 2019. Blood 02/24/2021 12:3 2 PM FITNESS SPECIALIST 02/24/2021 12:36 PM FITNESS SPECIALIST us Herberth Rodgers MD LAB BLOOD ORDERABLES Final Result [address] [address] * (ABNORMAL) CBC with auto differential (02/24/2021 12:32 PM FITNESS SPECIALIST) [facility] WBC 6.9 3.8 - 9.9 K/cumm [facility] Hgb 14.3 11.9 - 15.5 g/dL [facility] Hct 44.7 35.6 - 45.5 % [facility] Plt 159 150 - 400 K/cumm [facility] MPV 10.7 9.1 - 12.3 fL [facility] RBC 4.61 3.90 - 5.20 M/cumm [facility] MCV 97.0(H) 81.3 - 96.4 fL [facility] MCH 31.0 27.1 - 33.3 pg [facility] MCHC 32.0(L) 32.3 - 35.7 g/dL [facility] RDW CV 14.1 11.1 - 14.9 % [facility] RDW SD 49.7(H) 35.7 - 48.1 fL [facility] NRBC abs 0.00 0.00 - 0.01 K/cumm [facility] Blood 02/24/2021 12:3 2 PM FITNESS SPECIALIST 02/24/2021 12:36 PM FITNESS SPECIALIST Herberth Rodgers MD LAB BLOOD ORDERABLES Final Result Performing Organization Address City/[facility] Co de Phone Number SIMON [address] [address] * (ABNORMAL) Basic metabolic panel (02/24/2021 12:32 PM FITNESS SPECIALIST) [facility] Sodium 138 135 - 145 mmol/L [facility] Potassium, pl 4.3 3.3 - 4.9 mmol/L [facility] Chloride 98 97 - 110 mmol/L [facility] CO2 33(H) 22 - 32 mmol/L [facility] Anion gap 7 2 - 15 mmol/L [facility] BUN 32(H) 8 - 25 mg/dL [facility] Creatinine 2.40(H) 0.60 - 1.10 mg/dL [facility] Glucose 84 70 - 199 mg/dL [facility] Comment: Interpretive Data Fasting glucose >/= 126 [...] 2017. Calcium 9.6 8.5 - 10.3 mg/dL [facility] Blood 02/24/2021 12:3 2 PM FITNESS SPECIALIST 02/24/2021 12:36 PM FITNESS SPECIALIST Herberth Rodgers MD LAB BLOOD ORDERABLES Final Result Performing Organization Address [facility] Co de Phone Number [facility] [address] [facility] [place] [address] * aPTT (02/24/2021 12:32 PM FITNESS SPECIALIST) [facility] aPTT 35 22 - 37 sec SIMON ELIZABETH Comment: Interpretive data aPTT test has not been evaluated for monitoring heparin therapy. The anti-Xa is the preferred test. Current interpretive data was last revised on 2019. Blood 02/24/2021 12:3 2 PM FITNESS SPECIALIST 02/24/2021 12:36 PM FITNESS SPECIALIST us Herberth Rodgers MD LAB BLOOD ORDERABLES Final Result SIMON [address] [facility] [place] [address] documented in this encounter Visit Diagnoses Diagnosis Acute respiratory failure with hypoxia (CMS/HCC) (HCC)- Primary Hypoxia Hypoxemia End stage renal disease (CMS/HCC) (HCC) End stage renal disease End stage renal disease (CMS/HCC) (HCC) End [...] acetaminophen in 24 hours, Indications: Fever, PainIndications:Fever,Pain albuterol HFA (PROVENTIL HFA,VENTOLIN HFA,PROAIR HFA) 90 mcg/actuation inhaler 2 puff 2 puff, inhalation, Every 4 hours PRN (hospice music therapy), wheezing, Starting on Sun02/25/21 at 1300 budesonide-formoteroL (SYMBICORT) 160-4.5 mcg/actuation inhaler 2 puff 2 puff, inhalation, 2 times daily (hospice music therapy), First dose on Sun02/25/21 at 2000, Rinse mouth with water after use. Do not swallow., I /authorizing provider attest that the patient meets the approved [facility] Use Criteria: Yes Given 02/27/2021 7:28 AM FITNESS SPECIALIST 2 puffs Given 02/26/2021 9:14 PM FITNESS SPECIALIST 2 puffs Given 02/26/2021 5:54 AM FITNESS SPECIALIST 2 puffs calcitRIOL (ROCALTROL) capsule 0.25 mcg 0.25 mcg, oral, 3 times weekly (Once per day on Sun), First dose on Sun02/25/21 at 0900 Given 02/25/2021 9:18 AM FITNESS SPECIALIST 0.25 mcg cholecalciferol (VITAMIN D-3) tablet 2,000 Units 2,000 Units, oral, Daily, First dose on Sun02/25/21 at 0900 Given 02/27/2021 8:29 AM FITNESS SPECIALIST 2,000 Units Given 02/26/2021 10:03 AM FITNESS SPECIALIST 2,000 Units Given 02/25/2021 9:18 AM FITNESS SPECIALIST 2,[address] (CYMBALTA) extended release capsule 60 mg 60 mg, oral, Nightly, First dose on Bernarda 02/24/21 at 2200, Capsule may be opened and contents mixed with applesauce or apple juice ONLY. Do not crush, chew, cut, dissolve, open or otherwise manipulate tablet/capsule. Given 02/26/2021 9:04 PM FITNESS SPECIALIST 60 mg Given 02/25/2021 8:15 PM FITNESS SPECIALIST 60 mg Given 02/24/2021 11:45 PM FITNESS SPECIALIST 60 mg enoxaparin (LOVENOX) syringe 30 mg 30 mg, subcutaneous, Daily (for enoxaparin), First dose on 02/26/21 at 2100, Indications: Deep Vein Thrombosis PreventionIndications:Deep Vein Thrombosis Prevention Given 02/26/2021 9:04 PM FITNESS SPECIALIST 30 mg Right Upper Arm furosemide (LASIX) tablet 40 mg 40 mg, oral, Nightly, First dose on Bernarda 02/24/21 at 2200 Given 02/26/2021 9:03 PM FITNESS SPECIALIST 40 mg Given 02/25/2021 8:15 PM FITNESS SPECIALIST 40 mg Given 02/25/2021 12:11 AM FITNESS SPECIALIST 40 mg heparin 5,000 Units in sodium chloride 0.9% 1,000 mL solution As needed, Starting on Bernarda 02/24/21 at 1556, Intra-Op Given 02/24/2021 3:56 PM FITNESS SPECIALIST 20 mL HYDROcodone-acetaminophen (NORCO) 5-325 mg per tablet 1 tablet 1 tablet, oral, Every 4 hours PRN, 1st line for pain, Starting on Bernarda 02/24/21 at 1952, Indications: PainIndications:Pain Given 02/27/2021 7:49 PM FITNESS SPECIALIST 1 tablet Given 02/27/2021 3:32 PM FITNESS SPECIALIST 1 tablet Given 02/27/2021 10:14 AM FITNESS SPECIALIST 1 tablet ipratropium-albuteroL (DUO-NEB) 0.5-2.5 mg/3 mL nebulizer solution 3 mL 3 mL, nebulization, 2 times daily (hospice music therapy), First dose (after last modification) on [facility] 02/26/21 at 2000, Indications: Chronic Obstructive Pulmonary Disease with BronchospasmsIndications:Chronic Obstructive Pulmonary Disease with Bronchospasms Given 02/27/2021 7:28 AM FITNESS SPECIALIST 3 mL Given 02/26/2021 9:13 PM FITNESS SPECIALIST 3 mL levothyroxine (SYNTHROID) tablet 200 mcg 200 mcg, oral, Daily (early AM), First dose on Sun02/25/21 at 0600, Administer on an empty stomach, preferably 30 minutes before breakfast. Take 4 hours apart from antacids, iron and calcium products. Given 02/27/2021 5:58 AM FITNESS SPECIALIST 200 mcg Given 02/26/2021 5:26 AM FITNESS SPECIALIST 200 mcg Given 02/25/2021 5:09 AM FITNESS SPECIALIST 200 mcg lidocaine (XYLOCAINE) 10 mg/mL (1 %) injection 2-10 mg 2-10 mg (0.2-1 mL), other, Once as needed, pain with IV placement, Starting on Bernarda 02/24/21 at 1215, For 1 dose, Administer volume needed to infiltrate IV site. multivit wcabsonz-venv-LT-calcium (THERA-M) tablet 1 tablet 1 tablet, oral, Daily, First dose on Sun02/25/21 at 0900 Given 02/27/2021 8:30 AM FITNESS SPECIALIST 1 tablet Given 02/26/2021 10:03 AM FITNESS SPECIALIST 1 tablet Given 02/25/2021 9:17 AM FITNESS SPECIALIST 1 tablet pregabalin (LYRICA) capsule 200 mg 200 mg, oral, 2 times daily, First dose on Bernarda 02/24/21 at 2200 Given 02/27/2021 8:30 AM FITNESS SPECIALIST 200 mg Given 02/26/2021 9:03 PM FITNESS SPECIALIST 200 mg Given 02/26/2021 10:03 AM FITNESS SPECIALIST 200 mg primidone (MYSOLINE) tablet 50 mg 50 mg, oral, Nightly, First dose on Bernarda 02/24/21 at 2200 Given 02/26/2021 9:03 PM FITNESS SPECIALIST 50 mg Given 02/25/2021 8:15 PM FITNESS SPECIALIST 50 mg Given 02/24/2021 11:45 PM FITNESS SPECIALIST 50 mg prochlorperazine (COMPAZINE) injection 5 mg 5 mg, intravenous, Administer over 2 Minutes, Every 6 hours PRN, nausea, vomiting, Use if unable to tolerate PO, Starting on Bernarda 02/24/21 at 1953, Indications: Nausea and VomitingIndications:Nausea and Vomiting prochlorperazine (COMPAZINE) tablet 5 mg 5 mg, oral, Every 6 hours PRN, nausea, vomiting, Starting on Sun02/24/21 at 1953, Indications: Nausea and VomitingIndications:Nausea and Vomiting propranoloL (INDERAL) tablet 60 mg 60 mg, oral, 2 times daily, First dose on Sun02/25/21 at 0900, Hold for systolic blood pressure less than 120 or pulse less than 55. Given 02/26/2021 9:0 4 PM FITNESS SPECIALIST 60 mg Given 02/25/2021 8:15 PM FITNESS SPECIALIST 60 mg Given 02/25/2021 9:17 AM FITNESS SPECIALIST 60 mg ramelteon (ROZEREM) tablet 8 mg 8 mg, oral, Nightly PRN, sleep, Starting on Sun02/24/21 at 3, Indications: Sleep-Onset InsomniaIndications:Sleep-Onset Insomnia Given 02/26/2021 9:04 PM FITNESS SPECIALIST 8 m g rosuvastatin (CRESTOR) tablet 10 mg 10 mg, oral, Nightly, First dose on Bernarda 02/24/21 at 2200 Given 02/26/2021 9:03 PM FITNESS SPECIALIST 10 mg Given 02/25/2021 8:15 PM FITNESS SPECIALIST 10 mg Given 02/24/2021 11:45 PM FITNESS SPECIALIST 10 mg senna-docusate (PERICOLACE) 8.6-50 mg per tablet 1 tablet 1 tablet, oral, 2 times daily PRN, constipation, Starting on Bernarda 02/24/21 at 1953, Indications: constipationIndications:constipation Given 02/25/2021 4:37 PM FITNESS SPECIALIST 1 table t sodium chloride 0.9% flush 0.5-20 mL 0.5-20 mL, intra-catheter, As needed, line care, Starting on Bernarda 02/24/21 at 1215, Flush volume based on line type and size. Flush before and after each use. sodium chloride 0.9% flush 0.5-20 mL 0.5-20 mL, intra-catheter, Every 8 hours scheduled, First dose on Bernarda 02/24/21 at 2200, Flush volume based on line type and size. Given 02/27/2021 1:53 PM FITNESS SPECIALIST 10 mL Given 02/26/2021 3:11 PM FITNESS SPECIALIST 10 mL Given 02/25/2021 8:22 PM FITNESS SPECIALIST 10 mL sodium chloride 0.9% flush 0.5-20 mL 0.5-20 mL, intra-catheter, As needed, line care, Starting on Bernarda 02/24/21 at 1953, Flush volume based on line type and size. Flush before and after each use. documented in this encounter Discontinued Medications Medication [...] Recently Administered Medications Times are shown in FITNESS SPECIALIST. Scheduled Medication Order 02/25/2021 02/26/2021 02/27/2021 budesonide-formoteroL (SYMBICORT) 160-4.5 mcg/actuation inhaler 2 puff 2 puff, inhalation, 2 times daily (hospice music therapy), First dose on Sun02/25/21 at 2000, Rinse mouth with water after use. Do not swallow., I /authorizing provider attest that the patient meets the approved [facility] Use Criteria: Yes 6194 (Given - Provider: Blair Johns, SUMI) 0554 (Given - Provider: Ashtyn Marcus RRT)06 (Not Given - Provider: Ashtyn Marcus RISK MANAGEMENT PROFESSIONAL - Reason: Other)2113 (Given - Provider: Ashtyn Marcus RRT) 727 (Given - Provider: Carmen Diallo, SUMI) calcitRIOL (ROCALTROL) capsule 0.25 mcg 0.25 mcg, [...] Ponce RN) 0829 (Given - Provider: Mary Fry, CACHORRO) DULoxetine DR (CYMBALTA) extended release capsule 60 mg 60 mg, oral, Nightly, First dose on Bernarda 02/24/21 at 2200, Capsule may be opened and contents mixed with applesauce or apple juice ONLY. Do not crush, chew, cut, dissolve, open or otherwise manipulate tablet/capsule. 2014 (Given - Provider: Ana Power RN) 2103 (Given - Provider: Ana Power, ACCHORRO) enoxaparin (LOVENOX) syringe 30 mg 30 mg, subcutaneous, Daily (for enoxaparin), First dose on 02/26/21 at 2100, Indications: Deep Vein Thrombosis Prevention 2103 (Given - Provider: Ana Power, CACHORRO) furosemide (LASIX) 10 mg/mL injection 40 mg (COMPLETED) 40 mg, intravenous, Once, On 02/26/21 at 1400, For 1 dose, For IV push: administer doses < 160 mg at a rate of 20 -40 mg/min. Doses >/= 160 mg should be administered no faster than 4 mg/min. Room temperature only 1501 (Given - Provider: Mary Fry, CACHORRO) furosemide (LASIX) 10 mg/mL injection 40 mg [...] RN)2014 (Given - Provider: Ana Power RN) 210 (Given - Provider: Ana Power RN) ipratropium-albuteroL (DUO-NEB) 0.5-2.5 mg/3 mL nebulizer solution 3 mL (CANCELED) 3 mL, nebulization, Every 6 hours while awake (hospice music therapy), First dose (after last modification) on Sun02/25/21 at 1500, Indications: Chronic Obstructive Pulmonary Disease with Bronchospasms 1451 (Given - Provider: Carolina Gamboa, HYDROELECTRIC STATION CHIEF)2141 (Given - Provider: Blair Johns, SUMI) 0553 (Given - Provider: Ashtyn Marcus, SUMI)0603 (Not Given - Provider: Ashtyn Marcus, SUMI - Reason: Other) ipratropium-albuteroL (DUO-NEB) 0.5-2.5 mg/3 mL nebulizer solution 3 mL 3 mL, nebulization, 2 times daily (hospice music therapy), First dose (after last modification) on 02/26/21 at 2000, Indications: Chronic Obstructive Pulmonary Disease with Bronchospasms 2113 (Given - Provider: Ashtyn Marcus RRT) 0728 (Given - Provider: Carmen Diallo, SUMI) levothyroxine (SYNTHROID) tablet 200 mcg 200 mcg, oral, Daily (early AM), First dose on Sun02/25/21 at 0600, Administer on an empty stomach, preferably 30 minutes before breakfast. Take 4 hours apart from antacids, iron and calcium products. 0509 (Given - Provider: Ana Power RN) 0526 (Given - Provider: Ana Power RN) 0558 (Given - Provider: Ana Power RN) multivit vlegnvrb-dvwr-OV-calciu m (THERA-M) tablet 1 tablet 1 tablet, oral, Daily, First dose on Sun02/25/21 at 0900 0917 (Given - Provider: Marion Mora RN) 1003 (Given - Provider: Magnolia Ponce, CACHORRO) 08 (Given - Provider: Mary Fry, CACHORRO) pregabalin (LYRICA) capsule 200 mg 200 mg, oral, 2 times daily, First dose on Sun02/24/21 at 2200 0917 (Given - Provider: Marion Mora RN)2014 (Given - Provider: Ana Power RN) 100 (Given - Provider: Magnolia Ponce, CACHORRO)210 (Given - Provider: Ana Power RN) 08 (Given - Provider: Mary Fry RN) primidone (MYSOLINE) tablet 50 mg 50 mg, oral, Nightly, First dose on Sun02/24/21 at 2199 2014 (Given - Provider: Ana Power RN) 2102 (Given - Provider: Ana Power RN) propranoloL (INDERAL) tablet 60 mg 60 mg, oral, 2 times daily, First dose on Sun02/25/21 at 0900, Hold for systolic blood pressure less than 120 or pulse less than 55. 09 (Given - Provider: Marion Mora RN)2014 (Given - Provider: Ana Power RN) 0957 (Not Given - Provider: Magnolia Ponce, CACHORRO - Reason: Order parameters not met)2103 (Given - Provider: Ana Power RN) 08 (Not Given - Provider: Mary Fry RN - Reason: Order parameters not met) rosuvastatin (CRESTOR) tablet 10 mg 10 mg, oral, Nightly, First dose on Sun02/24/21 at 2202014 (Given - Provider: Ana Power RN) 2102 (Given - Provider: Ana Power RN) sodium chloride 0.9% flush 0.5-20 mL 0.5-20 mL, intra-catheter, Every 8 hours scheduled, First dose on Sun02/24/21 at 2200, Flush volume based on line type and size. 0448 (Not Given - Provider: Ana Power RN - Reason: IV Infusing)1543 (Given - Provider: Marion Mora, CACHORRO)2021 (Given - Provider: Ana Power RN) 0451 (Not Given - Provider: Ana Power RN - Reason: Other)1511 (Given - Provider: Mary Fry RN)2113 (Not Given - Provider: Ana Power RN [...] 2 puff, inhalation, Every 4 hours PRN (hospice music therapy), wheezing, Starting on Sun02/25/21 at 1300 HYDROcodone-acetaminophen (NORCO) 5-325 mg per tablet 1 tablet 1 tablet, oral, Every 4 hours PRN, 1st line for pain, Starting on Bernarda 02/24/21 at 1952, Indications: Pain 0509 (Given - Provider: Ana Power RN)0918 (Given - Provider: Marion Mora RN)1637 (Given - Provider: Marion Mora RN)2025 (Given - Provider: Ana Power RN) 0526 (Given - Provider: Ana Power RN)1337 (Given - Provider: Mary Fry RN)192 (Given - Provider: Ana Power RN) 0131 (Given - Provider: Ana Power RN)0601 (Given - Provider: Ana Power RN)1014 (Given - Provider: Mary Fry RN)1532 (Given - Provider: Mary Fry RN)1949 (Given - Provider: Odalis Grajeda RN) lidocaine (XYLOCAINE) 10 mg/mL (1 %) injection 2-10 mg 2-10 mg (0.2-1 mL), other, Once as needed, pain with IV placement, Starting on Bernarda 02/24/21 at 1215, For 1 dose, Administer volume needed to infiltrate IV site. prochlorperazine (COMPAZINE) injection 5 mg(Linked Group 1) 5 mg, intravenous, Administer over 2 Minutes, Every 6 hours PRN, nausea, vomiting, Use if unable to tolerate PO, Starting on Bernarda 02/24/21 at 1953, Indications: Nausea and Vomiting prochlorperazine (COMPAZINE) tablet 5 mg(Linked Group 1) 5 mg, oral, Every 6 hours PRN, nausea, vomiting, Starting on Bernarda 02/24/21 at 1953, Indications: Nausea and Vomiting ramelteon (ROZEREM) tablet 8 mg 8 mg, oral, Nightly PRN, sleep, Starting on Bernarda 02/24/21 at 1952, Indications: Sleep-Onset Insomnia 2103 (Given - Provider: Ana Power RN) senna-docusate (PERICOLACE) 8.6-50 mg per tablet 1 tablet 1 tablet, oral, 2 times daily PRN, constipation, Starting on Bernarda 02/24/21 at 1952, Indications: constipation 163 (Given - Provider: Marion Mora RN) sodium chloride 0.9% flush 0.5-20 mL 0.5-20 mL, intra-catheter, As needed, line care, Starting on Bernarda 02/24/21 at 1215, Flush volume based on line [...] Indications: Diagnostic Radiography 1336 (Given - Provider: Nikki Cyr RT) Linked Groups Order Group 1: prochlorperazine (COMPAZINE) tablet 5 mgJump to med 5 mg, oral, Every 6 hours PRN, nausea, vomiting, Starting on Bernarda 02/24/21 at 1953, Indications: Nausea and Vomiting Or prochlorperazine (COMPAZINE) injection 5 mgJump to med 5 mg, intravenous, Administer over 2 Minutes, Every 6 hours PRN, nausea, vomiting, Use if unable to tolerate PO, Starting on Bernarda 02/24/21 at 1953, Indications: Nausea and Vomiting documented in this encounter Orders Medications Ordered That Regan ht Not Have Been Administered Count Last Ordered Date First Ordered Date furosemide (LASIX) 10 mg/mL injection 40 mg 2 02/27/2021 02/26/2021 enoxaparin (LOVENOX) syringe 30 mg 1 2020 ipratropium-albuteroL (DUO-N EB) 0.5-2.5 mg/3 mL nebulizer solution 3 mL 3 02/26/2021 02/26/20 21 albuterol HFA (PROVENTIL HFA ,VENTOLIN HFA,PROAIR HFA) 90 mcg/actuation inhaler 2 puff 2 02/25/2021 budesonide-formoteroL (SYMBI ELEN) 160-4.5 mcg/actuation inhaler 2 puff 1 02/25/2021 ipratropium-albuteroL (DUO-N EB) 0.5-2.5 mg/3 mL nebulizer solution - ADS Override Pull 1 02/25/2021 tc-99m macroaggregated album in (MAA) injection 6 millicurie 1 02/25/2021 acetaminophen (TYLENOL) tablet 650 mg 1 11/2020 acetaminophen (TYLENOL) tablet 975 mg 1 11/2020 calcitRIOL (ROCALTROL) capsule 0.25 mcg 1 1 04/27/2020 ceFAZolin (ANCEF) 1 gram/10 mL in sterile water (premix) 3,000 mg 1 02/24/2021 cholecalciferol (VITAMIN D-3 ) tablet 2,000 Units 1 02/24/2021 dextrose (D10W) 10% bolus 250 mL 1 02/25/20 21 dextrose (GLUTOSE) 40 % gel 15 g 1 02/25/20 21 diphenhydrAMINE (BENADRYL) i njection 12.5 mg 1 02/24/[address] (CYMBALTA) ext ended release capsule 60 mg 1 02/24/2021 famotidine (PEPCID) tablet 20 mg 1 02/25/20 21 fentaNYL (SUBLIMAZE) 50 mcg/ mL preservative free injection - ADS Override Pull 1 02/24/2021 fentaNYL (SUBLIMAZE) preserv ative free injection 25 mcg 1 02/24/2021 furosemide (LASIX) tablet 40 mg 1 glucagon injection 1 mg 1 02/24/2021 hydrALAZINE (APRESOLINE) injection 5 mg 1 1 04/27/2020 HYDROcodone-acetaminophen (N ORCO) 5-325 mg per tablet 1 tablet 1 02/24/2021 HYDROmorphone (DILAUDID) 2 m g/mL injection - ADS Override Pull 1 02/24/2021 HYDROmorphone (DILAUDID) injection 0.2 mg 1 02/24/2021 HYDROmorphone (DILAUDID) injection 0.4 mg 1 02/24/2021 insulin lispro (HumaLOG, ADM ELOG) 100 unit/mL injection 1-5 Units 1 02/24/2021 labetaloL (NORMODYNE,TRANDAT E) injection 5 mg 1 02/24/2021 levothyroxine (SYNTHROID) tablet 200 mcg 1 02/24/2021 lidocaine (XYLOCAINE) 10 mg/ mL (1 %) injection 2-10 mg 1 02/24/2021 meperidine (DEMEROL) preserv ative free injection 12.5 mg 1 02/24/2021 multivit zgknqgir-ubpm-TT-ca lcium (THERA-M) tablet 1 tablet 1 02/24/2021 naloxone (NARCAN) 0.4 mg/mL injection 0.04-0.4 mg 1 02/24/2021 ondansetron (ZOFRAN) injection 4 mg 1 02/24 pregabalin (LYRICA) capsule 200 mg 1 2020 primidone (MYSOLINE) tablet 50 mg 1 021 prochlorperazine (COMPAZINE) injection 5 mg 2 02/24/2021 prochlorperazine (COMPAZINE) tablet 5 mg 1 02/24/2021 propranoloL (INDERAL) tablet 60 mg 1 2020 ramelteon (ROZEREM) tablet 8 mg 1 rosuvastatin (CRESTOR) tablet 10 mg 1 02/24 senna-docusate (PERICOLACE) 8.6-50 mg per tablet 1 tablet 1 02/24/2021 sodium chloride 0.9% flush 0.5-20 mL 3 11/2020 sodium chloride 0.9% infusion 1 02/24/2021 spironolactone (ALDACTONE) tablet 50 mg 1 1 [...] 02/24/2021 documented in this encounter Care Teams Recorder Helper [employer] Relationship Specialty Start Date End Date Gaudencio Miranda MD [address] [place] [id number] PCP - General 07/25/16 Herberth Rodgers MD [address] [address] Surgeon Surgery 02/24/21 documented as of this encounter
--- OUTSIDE RECORDS SUMMARY | 2024-03-07 14:13 | XMS_ITS | Encounter Summary ---
Author Organization [facility] Address [address] [place] [address] Care Team Providers Care Compilation Clerk Name Role Phone Gaudencio Miranda MD Primary Care Provider [phone] Encounter Details Date Type Department Care Team (Late st Contact Info) Description 12/24/2020 Telephone [facility] Vascular and Vein Surgery [address] [place] [address] Herberth Rodgers MD [address] [facility] [address] [place], [place] [id number] Social History Tobacco Use Types Packs/Day Years Used Date Smoking Tobacco: Former Comments Unknown Sex and Gender Information Value Date Recorded Sex Assigned at Not on file Legal Sex Female 12:59 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 * Telephone Encounter - Aditi Bran - 12/24/2020 10:02 AM CDT Call Ms Son's daughter Bernard with scheduling details of her mother's upcoming surgery with Dr Liz Rodgers on 12/30/20 documented in this encounter Plan of Treatment Not on file documented as of this encounter Visit Diagnoses Not on filedocumented in this encounter Care Teams Compilation Clerk Relationship Specialty Start Date End Date Gaudencio Miranda MD [address] [place] [address] PCP - General 07/25/16 documented as of this encounter
--- OUTSIDE RECORDS SUMMARY | 2024-03-07 14:13 | XMS_ITS | Encounter Summary ---
Author Organization [facility] Healthcare Address [address] [place] [address] Care Team Providers Care Marine Cargo Inspector Name Role Phone Gaudencio Miranda MD Primary Care Provider Encounter Details Date Type Department Care Team (Late st Contact Info) Description 02/21/2021 5:10 PM HEAD TURBINE OPERATOR Lab [address] [address] Pre-op testing Social History Tobacco Use Types [...] on file Legal Sex Female 12:59 AM HEAD TURBINE OPERATOR Gender Identity Not on file Sexual Orientation Not on file documented as of this encounter Plan of Treatment Not on file documented as of this encounter Procedures Procedure Name Priority Date/Time Associated Diagnosis Comments COVID-19 CORONAVIRUS RNA Routine 02/21/2021 1:33 PM HEAD TURBINE OPERATOR Pre-op testing documented in this encounter Results * COVID-19 Coronavirus RNA Nasopharyngeal (02/21/2021 1:33 PM HEAD TURBINE OPERATOR) COVID-19 RNA Not Detected SIMON BOWERS Comment: Interpretive Data Synonyms for this test include: PCR and NAAT . ??Testing performed by the [facility] Molecular Infectious Disease Laboratory. [...] April 22, 2020. First COVID-19 test? No [facility] Employeed in healthcare? Unknown [facility] status? No [facility] Group care resident? Unknown [facility] Hospitalized? No [facility] Is patient in ICU? No [facility] Symptomatic as defined by CDC? No [facility] Nasopharyngeal 02/21/2021 1: 33 PM HEAD TURBINE OPERATOR 02/21/2021 7:04 PM HEAD TURBINE OPERATOR N[facility]ative [facility] - 02/22/2021 3:35 AM HEAD TURBINE OPERATOR What is the reason for testing?->Screening prior to scheduled procedure or surgery (batch) Herberth Rodgers MD LAB MICROBIOLOGY - GENERAL ORDERABLES Final Result [facility] [address] [facility] Department [place] [address] documented in this encounter Visit Diagnoses Diagnosis Pre-op testing Unspecified pre-operative examination documented in this encounter Care Teams Marine Cargo Inspector Relationship Specialty Start Date End Date Gaudencio Miranda MD [address] [place] [id number] PCP - General 07/25/16 documented as of this encounter
--- OUTSIDE RECORDS SUMMARY | 2024-03-07 14:13 | XMS_ITS | Encounter Summary ---
Author Organization [facility] Address [address] [place] [address] Care Team Providers Care Curtain Supervisor Name Role Phone Gaudencio Miranda MD Primary Care Provider [phone] Encounter Details Date Type Department Care Team (Late st Contact Info) Description 02/21/2021 Orders Only [facility] Testing Site - [place], [place] [address] [place] [id number] Herberth Rodgers MD [address] [facility] [address] [address] Pre-op testing (Primary Dx) Social History Tobacco Use Types Packs/Day Years Used Date Smoking Tobacco: Former Cigarettes Q uit: 2016 AUDIT-C Answer Date Recorded Q1: How often do you have a drink containing alc ohol? Never 02/22/2021 Average Number of Drinks Not on file 021 Q3: How often do you have si x or more drinks on one occasion? 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 ??Testing performed by the [facility] Molecular Infectious Disease Laboratory. The 2019-Novel [...] April 22, 2020. First COVID-19 test? No [facility] Employeed in healthcare? Unknown [facility] status? No [facility] Group care resident? Unknown [facility] Hospitalized? No [facility] Is patient in ICU? No [facility] Symptomatic as defined by CDC? No [facility] Nasopharyngeal 02/21/2021 1: 33 PM DRILL SHARPENER OPERATOR 02/21/2021 7:04 PM DRILL SHARPENER OPERATOR Narrative [facility] - 02/22/2021 3:35 AM DRILL SHARPENER OPERATOR What is the reason for testing?->Screening prior to scheduled procedure or surgery (batch) Herberth Rodgers MD LAB MICROBIOLOGY - GENERAL ORDERABLES Final Result [facility] [address] [facility] Department [place] [address] documented in this encounter Visit Diagnoses Diagnosis Pre-op testing- Primary Unspecified pre-operative examination Pre-op testing Unspecified pre-operative examination documented in this encounter Care Teams Curtain Supervisor Relationship Specialty Start Date End Date Gaudencio Miranda MD [address] [place] [address] PCP - General 07/25/16 documented as of this encounter
--- OUTSIDE RECORDS SUMMARY | 2024-03-07 14:13 | XMS_ITS | Encounter Summary ---
Author Organization [facility] Address [address] [place] [address] Care Team Providers Care Fuel Manager Name Role Phone Gaudencio Miranda MD Primary Care Provider Reason for Referral * Diagnostic Imaging (Routine) - Closed Specialty Diagnoses / Procedures Referred By Mallory valentino Referred To Contact Diagnoses End stage renal disease (CMS/HCC) (HCC) Other specified pre-operative examination Procedures US Vein Mapping Duplex Upper Extremity Bilateral Herberth Rodgers MD [address] [place] [address] [address] [address] Phone: tel: fax: [facility] Medical Office Building [address] [place] [phone] Referral ID Status Reason Start Date Expiration Date Visits Re quested Visits Authorized [id number] Closed 11/24/2020 12/24/2021 1 1 Reason for Visit * Reason Comments New Patient esrd * Consultation (Routine) - Closed Specialty Diagnoses / Procedures Referred By Mallory valentino Referred To Contact Vascular Surgery Diagnoses End stage renal disease (CMS/HCC) (HCC) Stevenson Penaloza MD Phone: tel: fax: Herberth Rodgers MD [address] [place] [address] [address] [address] Phone: tel: fax: Referral ID Status Reason Start Date Expiration Date V isits Requested Visits Authorized [id number] Closed Specialty Services Required 11/09/2020 12/09/2021 1 1 Encounter Details Date Type Department Care Team (Late st Contact Info) Description 11/24/2020 2:30 PM CDT Office Visit [facility] Vascular and Vein Surgery [address] [facility] [address] [place] [address] Khoa Perales, GURMEET [address] [facility] [address] [place] [address] Chronic kidney disease, stage V (CMS/HCC) (HCC) (Primary Dx); End stage renal disease (CMS/HCC) (HCC); Other specified pre-operative examination; Other hyperlipidemia Social History Tobacco Use Types Packs/Day Years Used Date Smoking Tobacco: Former Comments Unknown Sex and Gender Information Value Date Recorded Sex Assigned at Not on file 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 Gender Identity Not on file Sexual Orientation Not on file documented as of this encounter Last Filed Vital Signs Vital Sign Reading Time Taken Comments Blood Pressure 124/67 11/24/2020 2:57 PM CDT Pulse 59 11/24/2020 2:57 PM CDT Temperature - - Respiratory Rate - - Oxygen Saturation - - Inhaled Oxygen Concentration - - Weight 133.4 kg (294 lb) 11/24/2020 2:57 PM CDT Height 172.7 cm (5' 8 ) 11/24/2020 2:57 PM CDT Body Mass Index 44.7 11/24/2020 2:57 PM CDT documented in this encounter Progress Notes * Khoa Perales, GURMEET - 11/24/2020 2:30 PM CDT Images from the original note were not included. Subjective/Objective Patient ID: Peg Son is a 70 y.o. female. Chief Complaint Chronic kidney disease History of Present Illness 70-year-old female new patient referral from her independent driver to be further evaluated for dialysis access treatment options. Patient has history of chronic kidney disease which is worsening with anticipated need for hemodialysis in the near future, fibromyalgia and morbid obesity. She states she recently had a appointment with her independent driver and dialysis modalities were discussed. She states peritoneal dialysis would not be an option for her and she is here to discuss hemodialysis access treatment options. She has not had any prior upper extremity vein mapping performed prior to this officevisit nor has she had any prior upper extremity access or dialysis catheters in the past. Current Outpatient Medications: ??? alendronate (FOSAMAX) 70 mg tablet, TAKE 1 TABLET BY MOUTH 1 TIME A WEEK 30 MINUTES BEFORE FIRST FOOD OR BEVERAGE OR MEDICINE OF THE DAY WITH WATER, Disp: , Rfl: ??? calcitRIOL (ROCALTROL) 0.25 mcg capsule, , Disp: , Rfl: ??? cholecalciferol (VITAMIN D-3) 2000 unit tablet, Take by mouth, Disp: , Rfl: ??? DULoxetine DR (CYMBALTA) 60 mg capsule, Take by mouth daily, Disp: , Rfl: ??? furosemide (LASIX) 40 mg tablet, daily, Disp: , Rfl: ??? HYDROcodone-acetaminophen (NORCO) 5-325 mg per tablet, every 6 hours, Disp: , Rfl: ??? levothyroxine (Synthroid) 125 mcg tablet, daily, Disp: , Rfl: ??? pregabalin (Lyrica) 100 mg capsule, 2 times daily, Disp: , Rfl: ??? propranoloL (INDERAL) 60 mg tablet, 2 times daily, Disp: , Rfl: ??? rosuvastatin (Crestor) 10 mg tablet, daily, Disp: , Rfl: ??? spironolactone (ALDACTONE) 50 mg tablet, daily, Disp: , Rfl: ??? sertraline (ZOLOFT) 100 mg tablet, daily (Patient not taking: Reported on 11/24/2020), Disp: , Rfl: ??? topiramate (TOPAMAX) 50 mg tablet, Take 2 tabs bid (Patient not taking: Reported on 11/24/2020), Disp: , Rfl: Allergies Allergen Reactions ??? Sulfa (Sulfonamide Antibiotics) Hives Reaction: Hives, ??? Aspirin Swelling Reaction: Swelling, Past Medical History: Diagnosis Date ??? Personal history of other diseases of the circulatory system History of rheumatic fever - (Added by TW Conv) ??? Personal history of other diseases of the respiratory system History of chronic obstructive lung disease - (Added by TW Conv) Past Surgical History: Procedure Laterality Date ??? NECK SURGERY Neck Surgery - (Added by TW Conv) ??? SPINAL FUSION Spinal Arthrodesis - (Added by TW Conv) Family History Family history unknown: Yes Social History Socioeconomic History ??? Marital status: Spouse name: None ??? Number of children: None ??? Years of education: None ??? Highest education level: None Occupational History ??? None Tobacco Use ??? Smoking status: Former Smoker Substance and Sexual Activity ??? Alcohol use: None ??? Drug use: None ??? Sexual activity: None Other Topics Concern ??? None Social History Narrative Current smoker : (Added by TW Conv) Chronic pain : (Added by Conv) Social Determinants of Health Financial Resource [...] and Family: Not on file ??? Attends Caodaism Services: Not on file ??? Active Member of Clubs or Organizations: Not on file ??? Attends Club or Organization Meetings: Not on file ??? Marital Status: Not on file Intimate Partner Violence: ??? Fear of Current or Ex-Partner: Not on file ??? Emotionally Abused: Not on file ??? Physically Abused: Not on file ??? Sexually Abused: Not on file Review of Systems Constitutional: No change in appetite. No recent weight loss. No fevers,chills or sweats. HENT: No trouble swallowing. No tinnitus. Eyes: No visual disturbances. Respiratory: No shortness of breath. No cough or sputum production. No wheezing. Cardiovascular: No chest pain. No palpitations. Gastrointestinal: No abdominal pain. No nausea, vomiting or diarrhea. Genitourinary: No dysuria. No hematuria. Extremities: No claudication. No rest pain. No ulcerations. No infections. Musculoskeletal: No joint pains. No back pain. No myalgias. Neurologic: No dizziness. No syncope. No weakness. Endocrine: No polydipsia, polyphagia or polyuria. Skin: No rashes. No discoloration. Hematologic: No bleeding. No easy bruising. Psychiatric: No anxiety. No behavioral changes. No mood swings. Physical Exam Constitutional: Alert and oriented. Eyes: Extraocular movements full, sclerae anicteric. HENT: Head atraumatic and normocephalic. Neck is supple. No carotid bruits. Chest: Effort normal. Breath sounds normal. Cardiovascular: S1 and S2 are normal. No murmurs, rubs or gallops appreciated. Extremities: Bilateral upper and lower extremities are warm and well perfused. No open ulcerations.Bilateral radial and brachial pulses palpable. Abdominal: Soft, nontender, no masses. Normal bowel sounds. Musculoskeletal: Normal range of motion. Neurologic: Cranial nerves 2-12 intact. Strength and sensation intact bilaterally. Skin: Warm and dry. No rashes. No discoloration. Hematologic/Lymphatic: No adenopathy, no ecchymoses. Psychiatric: Normal mood and affect. Behavior normal.Judgment normal. Assessment/Plan Diagnoses and all orders for this visit: Chronic kidney disease, stage V (CMS/HCC) ([facility]) (N18.5) (Primary) Assessment & Plan: Impression: Patient with worsening chronic kidney disease with anticipated need for dialysis in thenear future. She is here to discuss hemodialysis access treatment options. She has had no prior vein mapping of her upper extremities. Plan: Will obtain bilateral upper extremity vein mapping for determination of long-term hemodialysis access treatment options. Patient follow-up in 2-3 weeks for discussion of test results and potential further surgical treatment options. End stage renal disease ([facility]/HCC) ([facility]) (N18.6) - Ambulatory referral to Vascular Surgery - US Vein Mapping Duplex Upper Extremity Bilateral; Future Other specified pre-operative examination (Z01.818) - US Vein Mapping Duplex Upper Extremity Bilateral; Future Other hyperlipidemia (E78.49) Assessment & Plan: Impression: Stable chronic hyperlipidemia. Plan: Medications reviewed I recommend continuing daily statin regimen as directed by patient's primary care physician. Portions of this note was created with Dyn voice recognition software. Communications Technologist variances may be present. Khoa Perales NP Cosigned by Herberth Rodgers MD at 12/02/2020 8:23 AM CDT documented in this encounter Miscellaneous Notes * Assessment & Plan Note - Khoa Perales NP - 12/01/2020 2:30 PM CDT Associated Problem(s): Other hyperlipidemia Impression: Stable chronic hyperlipidemia. Plan: Medications reviewed I recommend continuing daily statin regimen as directed by patient's primary care physician. * Assessment & Plan Note - Khoa Perales NP - 12/01/2020 2:29 PM CDT Associated Problem(s): Chronic kidney disease, stage V (CMS/HCC) (HCC) Impression: Patient with worsening chronic kidney disease with anticipated need for dialysis in thenear future. She is here to discuss hemodialysis access treatment options. She has had no prior vein mapping of her upper extremities. Plan: Will obtain bilateral upper extremity vein mapping for determination of long-term hemodialysis access treatment options. Patient follow-up in 2-3 weeks for discussion of test results and potential further surgical treatment options. documented in this encounter Plan of Treatment Not on file documented as of this encounter Results * US Vein Mapping Duplex Upper Extremity Bilateral (12/15/2020 3:30 PM CDT) Anatomical Region Laterality Modality Vascular Bilateral Ultrasound 12/15/2020 Narrative 12/16/2020 1:59 PM CDT [employer] Job ID: [id number] [employer] Document ID: [id number] Dictated date/time: [id number] UPPER EXTREMITY VEIN MAPPING REASON FOR EXAM [...] arteriovenous fistula creation. JOB ID/VF JOB ID: ??[id number] Herberth Rodgers MD [facility] PROCEDURES Final Re sult documented in this encounter Visit Diagnoses Diagnosis Chronic kidney disease, stage V (CMS/HCC) (HCC)- Primary Chronic kidney disease, Stage V End stage renal disease (CMS/HCC) (HCC) End stage renal disease Other specified pre-operative examination Other hyperlipidemia End stage renal disease (CMS/HCC) (HCC) End stage renal disease Other specified pre-operative examination documented in this encounter Historical Medications * This list may reflect changes made after this encounter. calcitRIOL (ROCALTROL) 0.25 mcg capsule Take 1 capsule (0.25 mcg total) by mouth every other day -08/30/2020 cholecalciferol (VITAMIN D-3) 2000 unit tablet Take 1 tablet (2,000 Units total) by mouth daily DULoxetine DR (CYMBALTA) 60 mg capsule Take 1 capsule (60 mg total) by mouth nightly 11/11/2020 rosuvastatin (CRESTOR) 10 mg tablet Take 2 tablets (20 mg total) by mouth daily propranoloL (INDERAL) 60 mg tablet Take 1 tablet (60 mg total) by mouth 2 times daily HYDROcodone-acet aminophen (NORCO) 5-325 mg per tablet Take 1 tablet by mouth every 6 hours alendronate (FOSAMAX) 70 mg tablet TAKE 1 TABLET BY MOUTH 1 TIME A WEEK 30 MINUTES BEFORE FIRST FOOD OR BEVERAGE OR MEDICINE OF THE DAY WITH WATER 09/28/2020 01/17/2021 topiramate (TOPAMAX) 50 mg tablet Take 2 tabs bid 06/28/2016 01/17/2021 spironolactone (ALDACTONE) 50 mg tablet Take 50 mg by mouth daily 02/27/2021 sertraline (ZOLOFT) 100 mg tablet daily 01/17/2021 pregabalin (Lyrica) 100 mg capsule Take 200 mg by mouth 2 (two) times a day 02/22/2021 levothyroxine (SYNTHROID) 200 mcg tablet Take 1 tablet (200 mcg total) by mouth daily 05/28/2023 furosemide (LASIX) 40 mg tablet Take 40 mg by mouth nightly 02/27/2021 added in this encounter Orders Outpatient Referral Count Last Ordered Date Fir st Ordered Date AMB REFERRAL TO VASCULAR SURGERY 1 11/25/19 21 documented in this encounter Care Teams Fuel Manager Relationship Specialty Start Date End Date Gaudencio Miranda MD [address] [place] [address] PCP - General 07/25/16 documented as of this encounter
--- OUTSIDE RECORDS SUMMARY | 2024-03-07 14:13 | XMS_ITS | Encounter Summary ---
Author Organization [facility] Medical Group Address [address] [place] [address] Care Team Providers Care Acoustical Engineer Name Role Phone Gaudencio Miranda MD Primary Care Provider [phone] Reason for Visit * Reason Onset Date Comments cardiac clearance 02/08/2021 Encounter Details Date Type Department Care Team (Late st Contact Info) Description 02/08/2021 Telephone [facility] Vascular and Vein Surgery [address] [place] [address] Herberth Rodgers MD [address] [facility] [address] [place] [address] cardiac clearance Social History Tobacco Use Types Packs/Day Years [...] on file 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 I will refax it again. Will call to see if they received. TEACHER * Telephone Encounter - Zhane Coronado - 02/08/2021 10:50 AM CST Pt saw Dr. Peña at [facility] and is needing a cardiac clearance letter faxed to their office for [facility] surgery: [phone] TEACHER documented in this encounter Plan of Treatment Not on file documented as of this encounter Visit Diagnoses Not on filedocumented in this encounter Care Teams Acoustical Engineer Relationship Specialty Start Date End Date Gaudencio Miranda MD [address] [place] [address] PCP - General 07/25/16 documented as of this encounter
--- OUTSIDE RECORDS SUMMARY | 2024-03-07 14:16 | XMS_ITS | Encounter Summary ---
Author Organization [facility] Address [address] [address] Phone Care Team Providers Care Remote Pilot Operator Name Role Phone Gaudencio Miranda MD Primary Care Provider [phone] Encounter Details Date Type Department Care Team (Late st Contact Info) Description 05/31/2019 Telephone [facility] Nephrology and Hypertension [address] [facility], [address] [place] [address] Stevenson Penaloza MD [address] [facility] [employer], [address] [place] [address] Social History Tobacco Use Types Packs/Day Years Used Date Smoking Tobacco: Former Smokeless Tobacco: Never Alcohol Use Standard Drinks/Week Comments Never 0 (1 standard drink = 0.6 oz pur e alcohol) AUDIT-C Answer Date Recorded Frequency of Alcohol Consumption Never 05/19/2019 Average Number of Drinks Not on file 020 Frequency of Binge Drinking Not on file 04/2019 Sex and Gender Information Value Date Recorded Sex Assigned at Not on file Gender Identity Not on file Sexual Orientation Not on file documented as of this encounter Miscellaneous Notes * Telephone Encounter - Stevenson Penaloza MD - 06/12/2019 2:39 PM CDT I wrote a letter * Telephone Encounter - Stevenson Penaloza MD - 06/12/2019 2:31 PM CDT I called again and LMOR today * Telephone Encounter - Stevenson Penaloza MD - 06/07/2019 10:02 PM CDT I called last week and again today. I LMOR * Telephone Encounter - Stevenson Penaloza MD - 05/31/2019 8:32 AM CDT gfr up to 17. Serology and infl okay Probably due to dm, htn and diuretics? Cut back more? ua pos wbcs. No sx. Repeat ccms and culture documented in this encounter Plan of Treatment Not on file documented as of this encounter Procedures Procedure Name Priority Date/Time Associated Diagnosis Comments URINALYSIS, COMPLETE, W/ REFLEX TO CULTURE Routine 07/07/2019 10:32 AM CDT Pyuria documented in this encounter Results * (ABNORMAL) URINALYSIS, COMPLETE, W/ REFLEX TO CULTURE (07/07/2019 10:32 AM CDT) Color of Urine YELLOW YELLOW [facility] ([facility]) Appearance of Urine CLEAR CLEAR [facility]) Specific gravity of Urine 1.015 1.001 - 1.035 [facility] ([facility]) pH of Urine 6.5 5.0 - 8.0 [facility] ([facility]) Glucose, Urine NEGATIVE NEGATIVE [facility] ([facility]) Bilirubin, total, Urine NEGATIVE NEGATIVE [facility] ([facility]) Ketones, Urine NEGATIVE NEGATIVE [facility] ([facility]) Hemoglobin, Urine NEGATIVE NEGATIVE [facility] ([facility]) Protein, Urine NEGATIVE NEGATIVE [facility] ([facility]) Nitrite, Urine NEGATIVE NEGATIVE [facility] ([facility]) Leukocyte esterase, Urine 2+(A) NEGATIVE [facility] ([facility]) Leukocytes, Urine sediment 40-60(A) < OR = 5 /HPF [facility] ([facility]) Erythrocytes, Urine sediment NONE SEEN < OR = 2 /HPF [facility] ([facility]) Epithelial cells, squamous, Urine sediment 0-5 < OR = 5 /HPF [facility] ([facility]) Transitional cells, Urine sediment CANCELED < OR = 5 /HPF [facility] ([facility]) Comment:Result canceled by t he ancillary. Epithelial cells, renal, Urine sediment CANCELED < OR = 3 /HPF [facility]) Comment:Result canceled by t he ancillary. Bacteria, Urine sediment NONE SEEN NONE SEEN /HPF [facility] ([facility]) Calcium oxalate crystals, Urine sediment CANCELED NONE OR FEW /HPF [facility] ([facility]) Comment:Result canceled by t he ancillary. Triple phosphate crystals, Urine sediment CANCELED NONE OR FEW /HPF [facility] ([facility]) Comment:Result canceled by t he ancillary. Urate crystals, Urine sediment CANCELED NONE OR FEW /HPF [facility] ([facility]) Comment:Result canceled by t he ancillary. Amorphous sediment, Urine sediment CANCELED NONE OR FEW /HPF [facility] ([facility]) Comment:Result canceled by t he ancillary. Crystals, Urine sediment CANCELED NONE SEEN /HPF [facility]) Comment:Result canceled by t he ancillary. Hyaline casts, Urine sediment NONE SEEN NONE SEEN /LPF [facility] ([facility]) Granular casts, Urine sediment CANCELED NONE SEEN /LPF [facility]) Comment:Result canceled by t he ancillary. Casts, Urine sediment CANCELED NONE SEEN /LPF [facility]) Comment:Result canceled by t he ancillary. Yeast, Urine sediment CANCELED NONE SEEN /HPF [facility]) Comment:Result canceled by t he ancillary. Service comment [facility] Comment:Result canceled by t he ancillary. Service comment [facility]ED [facility] Comment:Result canceled by t he ancillary. Bacteria identified, Urine CULTURE INDICATED - RESULTS TO FOLLOW [facility] Culture, Urine, Routine SEE NOTE [facility]) Comment: ??CULTURE, URINE, ROUTINE ?Micro Number: ?[id number] ??Test Status: ? Final ??Specimen Source: ?? URINE ??Specimen Quality: ??Adequate ??Result: ?Multiple organisms present, each less than 10,000 ? CFU/mL. These organisms, commonly found on ? external and internal genitalia, are considered ? to be colonizers. No further testing performed. 07/07/2019 10:3 2 AM CDT 07/07/2019 10:33 AM CDT Narrative Resulting Agency Comment Performing Organization Information: ?Site ID: [email or web address] ?Name: [email or web address] ?Address: [address] [facility] [place] [address] ?Director: Hal Arnold D.O., MPH Stevenson Penaloza MD LAB BLOOD ORDERABLES [facility] documented in this encounter Visit Diagnoses Diagnosis Pyuria- Primary documented in this encounter Care Teams Remote Pilot Operator Relationship Specialty Start Date End Date Gaudencio Miranda MD [address] [place] [address] PCP - General Internal Medicine 01/14/19 documented as of this encounter
--- OUTSIDE RECORDS SUMMARY | 2024-03-07 14:16 | XMS_ITS | Encounter Summary ---
Author Organization [facility] Address [address] [address] Phone Care Team Providers Care Correctional Treatment Specialist Name Role Phone Gaudencio Miranda MD Primary Care Provider [phone] Encounter Details Date Type Department Care Team (Late st Contact Info) Description 11/17/2019 1:00 PM CDT Office Visit [facility] Nephrology and Hypertension [address] [place] [address], [address] [place] [address] Stevenson Penaloza MD [address] [facility], [address] [place] [address] Chronic kidney disease, Stage V (CMS-HCC) (Primary Dx) Social History Tobacco Use Types [...] Sign Reading Time Taken Comments Blood Pressure 128/76 11/17/2019 1:02 PM CDT Pulse 72 11/17/2019 1:02 PM CDT Temperature 35.4 ??C (95.8 ??F) 11/17/2019 1:02 PM CD T Respiratory Rate - - Oxygen Saturation - - Inhaled Oxygen Concentration - - Weight - - Height 172.7 cm (5' 8 ) 11/17/2019 1:02 PM CDT Body Mass Index - - documented in this encounter Progress Notes * Stevenson Penaloza MD - 11/17/2019 1:00 PM CDT Peg Son is a pleasant 69 y.o.female. Peg is a very pleasant lady who comes in because of an elevated creatinine. No urinary issues. Avoiding excess meat. 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 No new issues. The patient has fibromyalgia. The patient has snoring symptoms. She is going to talk with Dr. Miranda about getting a sleep test. Past history: societies, swelling, cirrhosis, fibromyalgia, snoring symptoms. Allergies Allergen Reactions ??? Aspirin Anaphylaxis ??? Sulfa Antibiotics Hives Reaction: Hives, Social History Tobacco Use ??? Smoking status: Former Smoker ??? Smokeless tobacco: Never Used Substance Use Topics ??? Alcohol use: Never Frequency: Never ??? Drug use: Not on file ROS Constitutional: Negative except as above Skin: Negative except as above Pulmonary: Negative except as above Urologic: Negative except as above BP 128/76 Pulse 72 Temp 95.8 ??F (35.4 ??C) Ht 5' 8 (1.727 m) BMI 45.16 kg/m?? BSA 2.54 m?? WDWN female in NAD Skin No rash Head NCAT Neck No nodes, No TMG Lungs Clear to Auscultation Cor RRR no rub or gallop Abd BS+ nontender and soft. Ext 1+ edema, Psyche normal not depressed or anxious Recent Labs: 12/21/17 Cr 1.46, gfr 36 07/11/18 Cr 3.22, , gfr 14, vit d 50, TSH 0.06 01/07/19 Cr 3.45, gfr 13, Chol 66/42/150, 05/19/2019 Upro 162, UA 10-20W, Vit d 47 K/L 2.28, S+UIfx neg, ESR 45, EMA neg, C' nl, Hep c neg 11/12/2019 K/L 2.52 Lab Results Component Value Date BUN 28 (H) 11/12/2019 CREATININE 2.67 (H) 11/12/2019 EGFRAA 20 (L) 11/12/2019 EGFRAA 20 (L) 05/19/2019 EGFR 17 (L) 11/12/2019 EGFR 17 (L) 05/19/2019 PROTCREATUR 162 (H) 05/19/2019 PROTCREATUR 0.162 (H) 05/19/2019 NA 142 11/12/2019 K 4.1 11/12/2019 CL 102 11/12/2019 CO2 35 (H) 11/12/2019 CA 9.6 11/12/2019 PHOSPHATE 3.3 11/12/2019 ALBUMIN 4.0 11/12/2019 GLUCOSE 87 11/12/2019 PTH 113 (H) 11/12/2019 VITD3 51 11/12/2019 WBC 6.7 11/12/2019 HGB 12.9 11/12/2019 PLT 186 11/12/2019 Radiology 07/14/2019 Renal U/S bilateral cortical thinning Impression: Peg has an elevated creatinine. Her GFR worsened early in 2018. It stayed stable since then. Serology is negative. K/L is mildly high but this is common in ckd. ua was benign except for wbcs. I called several times and then wrote a letter to repeat. She did not repeat. To preserve renal function: Use KAPIL/ARB gfr too low Control bp thisi is good Control Cholesterol Check PTH/Vit D Low protein diet Avoid NSAIDs Stay well hydrated She was referred to kidney [facility] in June but covid prevented her from going. Will retry this. continue same dose of diuretics. She has some low back pain (below kidneys). See will she pcp about this. The patients BMI is too high. Try to lose weight. Consider seeing a cinnamon grinder or PCP for help. She is thinking of [facility] discussed again how she should lose weight The patient had the pneumovax and the flu shot. Plan Lose weight Same meds [facility] RTC 4 months Assessment/Plan Diagnoses and all orders for this visit: Chronic kidney disease, Stage V (CMS-HCC) Body mass index is 45.16 kg/m??. Follow up plan to address BMI is too high. See above. documented in this encounter Plan of Treatment Not on file documented as of this encounter Procedures Procedure Name Priority Date/Time Associated Diagnosis Comments TOTAL PROTEIN W/ CREATININE, URINE, RANDOM Routine 02/24/2020 10:55 AM [facility]ER Chronic kidney disease, Stage V (CMS-HCC) VITAMIN D, 25-HYDROXY, SERUM Routine 02/24/2020 10:55 AM [facility] P[facility]ER Chronic kidney disease, Stage V (CMS-HCC) CBC (INCLUDES DIFFERENTIAL/PLATEL ETS) Routine 02/24/2020 10:55 AM [facility] P[facility] Chronic kidney disease, Stage V (CMS-HCC) RENAL FUNCTION PANEL (RFP) Routine 02/24/2020 10:55 AM [facility] P[facility]ER Chronic kidney disease, Stage V (CMS-HCC) HEPATITIS B SURFACE AB, QL, SERUM Routine 02/24/2020 10:55 AM [facility] P[facility] Chronic kidney disease, Stage V (CMS-HCC) PTH INTACT W/O CALCIUM, SERUM Routine 02/24/2020 10:55 AM [facility] P[facility] Chronic kidney disease, Stage V (CMS-HCC) documented in this encounter Results * Vitamin D, 25-Hydroxy, Serum (02/24/2020 10:55 AM [facility]) Calcidiol, Serum/Plasma 42 30 - 100 ng/mL [facility] (ST) Comment: Vitamin D Status ? 25-OH Vitamin D: Deficiency: ?<20 ng/mL Insufficiency: ? 20 - 29 ng/mL Optimal: ? > or = 30 ng/mL For 25-OH Vitamin D testing on patients on D2-supplementation and patients for whom quantitation of D2 and D3 fractions is required, the [facility] 25-OH VIT D, (D2,D3), LC/MS/MS is recommended: order code 80372 (patients >2yrs). See Note 1 Note 1 For additional information, please refer to http://[email or web address]Akermin/faq/ZAK792 (This link is being provided for informational/ educational purposes only.) 02/24/2020 10:5 5 AM GUM P[facility]ER 02/24/2020 10:56 AM GUM PULLER Narrative Resulting Agency Comment Performing Organization Information: ?Site ID: [id number] ?Name: [facility] ?Address: [facility] [place] [address] ?Director: Hal Arnold D.O. MPH Stevenson Penaloza MD LAB BLOOD ORDERABLES Performing Organization Address City/[facility]/ZIP Co de Phone Number [facility] ([facility]) * Total Protein w/ Creatinine, Urine, Random (02/24/2020 10:55 AM [facility] P[facility]ER) Creatinine, Urine 88 20 - 275 mg/dL [facility] ([facility]) Protein/Creatin ine, Urine 159 21 - 161 mg/g creat [facility] ([facility]) Protein/Creatin ine, Urine 0.159 0.021 - 0.161 mg/mg creat [facility] ([facility]) Protein, Urine 14 5 - 24 mg/dL [facility] ([facility]) 02/24/2020 10:5 5 AM G[facility] P[facility]ER 02/24/2020 10:56 AM [facility] P[facility] Narrative Resulting Agency Comment Performing Organization Information: ?Site ID: [id number] ?Name: [facility] [facility] ?Address: [facility] [place] [address] ?Director: Hal Arnold D.O., MPH Stevenson Penaloza MD LAB URINE ORDERABLES Performing Organization Address City/[facility]/ZIP Co de Phone Number [facility]) * (ABNORMAL) Renal Function Panel (RFP) (02/24/2020 10:55 AM [facility] P[facility]ER) Glucose, Serum/Plasma 89 65 - 99 mg/dL [facility] ([facility]) Comment: ? Fasting reference interval Urea nitrogen, Serum/Plasma (BUN) 24 7 - 25 mg/dL [facility]) Creatinine, Serum/Plasma 2.53(H) 0.60 - 0.93 mg/dL [facility] ([facility]) Comment: For patients >49 years of age, the reference limit for Creatinine is approximately 13% higher for people identified as -Dominican. eGFR, non 18(L) > OR = 60 mL/min/1. 73m2 [facility] ([facility]) eGFR, 21(L) > OR = 60 mL/min/1. 73m2 [facility] ([facility]) Urea nitrogen/Creatinin e, Serum/Plasma 9 6 - 22 (calc) [facility] ([facility]) Sodium, Serum/Plasma 143 135 - 146 mmol/L [facility]) Potassium, Serum/Plasma 4.3 3.5 - 5.3 mmol/L [facility]) Chloride, Serum/Plasma 100 98 - 110 mmol/L [facility] ([facility]) Carbon dioxide CO2), total, Serum/Plasma 36(H) 20 - 32 mmol/L [facility]) Calcium, Serum/Plasma 9.4 8.6 - 10.4 mg/dL [facility]) Phosphate, Serum/Plasma 4.3 2.1 - 4.3 mg/dL [facility]) Albumin, Serum/Plasma 4.0 3.6 - 5.1 g/dL [facility]) Blood 02/24/2020 10:5 5 AM GUM PULLER 02/24/2020 10:56 AM GUM PULLER Narrative Resulting Agency Comment Performing Organization Information: ?Site ID: [place] ?Name: [facility] ?Address: [facility] [place] [address] ?Director: Hal Arnold D.O., MPH Stevenson Penaloza MD LAB BLOOD ORDERABLES Performing Organization Address [facility]/ZIP Co de Phone Number [facility] * (ABNORMAL) PTH Intact w/o Calcium, Serum (02/24/2020 10:55 AM G[facility] PULLER) PTH, Intact, Serum/Plasma 275(H) 14 - 64 pg/mL [facility] ([facility]) Comment: Interpretive Guide ?Intact PTH ? Calcium ? ------- Normal Parathyroid ?Normal ? Normal Hypoparathyroidism ?Low or Low Normal ?Low Hyperparathyroidism ?? Primary ?Normal or High ? High ?? Secondary ?High ? Normal or Low ?? Tertiary ? High ? High Non-Parathyroid ?? Hypercalcemia ?Low or Low Normal ?High Blood 02/24/2020 10:5 5 AM GUM PULLER 02/24/2020 10:56 AM [facility] P[facility] Narrative Resulting Agency Comment Performing Organization Information: ?Site ID: [place] ?Name: [facility] ?Address: [address] [place] [address] ?Director: Hal Arnold D.O., ANY Stevenson Penaloza MD LAB BLOOD ORDERABLES Performing Organization Address [facility]/ZIP Co de Phone Number [facility]) * Hepatitis B Surface AB, QL, Serum (02/24/2020 10:55 AM GUM PULLER) Pathologist [facility] Hepatitis B virus surface Ab, Serum NON-REACTI VE NON-REACTI VE [facility]) Blood 02/24/2020 10:5 5 AM GUM PULLER 02/24/2020 10:56 AM GUM PULLER Narrative Resulting Agency Comment Performing Organization Information: ?Site ID: [place] ?Name: [facility] ?Address: [facility] [place] [address] ?Director: Hal Arnold D.O., MPH Stevenson Penaloza MD LAB BLOOD ORDERABLES [facility]) * CBC (includes Differential/Platelets) (02/24/2020 10:55 AM GUM PULLER) [facility] Leukocytes, Blood 6.7 3.8 - 10.8 Thousand/u L [facility] ([facility]) Erythrocytes (RBC) 4.23 3.80 - 5.10 Million/uL [facility] ([facility]) Hemoglobin (HGB) 13.0 11.7 - 15.5 g/dL [facility] ([facility]) Hematocrit (HCT) 40.2 35.0 - 45.0 % [facility]) MCV 95.0 80.0 - 100.[address] [facility] ([facility]) MCH 30.7 27.0 - 33.0 [address] [facility] ([facility]) MCHC 32.3 32.0 - 36.0 g/dL [facility]) Erythrocyte Distribution Width (RDW) 12.7 11.0 - 15.0 % [facility]) Platelets, Blood 219 140 - 400 Thousand/u L [facility]) Platelet mean volume, Blood 11.3 7.5 - 12.[address] [facility] ([facility]) Neutrophils, Blood 2,901 1,500 - 7,800 cells/uL [facility] ([facility]) Lymphocytes, Blood 2,606 850 - 3,900 cells/uL [facility]) Monocytes, Blood 905 200 - 950 cells/uL [facility]) Eosinophils, Blood 235 15 - 500 cells/uL [facility]) Basophils, Blood 54 0 - 200 cells/uL [facility]) Neutrophils/100 leukocytes, Blood 43.3 % [facility]) Lymphocytes/100 leukocytes, Blood 38.9 % [facility]) Monocytes/100 leukocytes, Blood 13.5 % [facility]) Eosinophils/100 leukocytes, Blood 3.5 % [facility]) Basophils/100 leukocytes, Blood 0.8 % [facility]) Blood 02/24/2020 10:5 5 AM GUM PULLER 02/24/2020 10:56 AM GUM P[facility]ER Narrative Resulting Agency Comment Performing Organization Information: ?Site ID: [place] ?Name: [facility] ?Address: [address] [place], [place] [address] [address] ?Director: Hal Arnold D.O., MPH Stevenson Penaloza MD LAB BLOOD ORDERABLES [facility]) documented in this encounter Visit Diagnoses Diagnosis Chronic kidney disease, Stage V (CMS-HCC)- Primary Chronic kidney disease, Stage V documented in this encounter Care Teams Correctional Treatment Specialist Relationship Specialty Start Date End Date Gaudencio Miranda MD [address] [place] [address] PCP - General Internal Medicine 01/14/19 documented as of this encounter
--- OUTSIDE RECORDS SUMMARY | 2024-03-07 14:16 | XMS_ITS | Encounter Summary ---
Author Organization [facility] Address [address] [address] Phone Care Team Providers Care Forming Roll Operator Name Role Phone Gaudencio Miranda MD Primary Care Provider [phone] Encounter Details Date Type Department Care Team (Late st Contact Info) Description 11/03/2020 3:00 PM CDT Office Visit [facility] Nephrology and Hypertension [address] [place] [address], [address] [place] [address] Stevenson Penaloza MD [address] [facility], [address] [place] [address] Chronic kidney disease, Stage V (CMS-HCC) (Primary [...] Sign Reading Time Taken Comments Blood Pressure 106/60 11/03/2020 3:12 PM CDT Pulse 72 11/03/2020 3:12 PM CDT Temperature 35.7 ??C (96.3 ??F) 11/03/2020 3:12 PM CD T Respiratory Rate - - Oxygen Saturation - - Inhaled Oxygen Concentration - - Weight 133 kg (293 lb) 11/03/2020 3:12 PM CDT Height 172.7 cm (5' 8 ) 11/03/2020 3:12 PM CDT Body Mass Index 44.55 11/03/2020 3:12 PM CDT documented in this encounter Progress Notes * Stevenson Penaloza MD - 11/03/2020 3:00 PM CDT Peg Son is a pleasant 70 y.o.female. Peg is a very pleasant lady who comes in because of an elevated creatinine. No new problems urinating Avoiding excess meat by taste.. 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 No recent developments The patient has fibromyalgia. She now says she does not snore after all. She has a special bed and the HOB raises. Past history: societies, swelling, cirrhosis, fibromyalgia. Allergies Allergen Reactions ??? Aspirin Anaphylaxis ??? Sulfa Antibiotics Hives Reaction: Hives, Social History Tobacco Use ??? Smoking status: Former Smoker ??? Smokeless tobacco: Never Used Substance Use Topics ??? Alcohol use: Never ??? Drug use: Not on file ROS Constitutional: Negative except as above Skin: Negative except as above Pulmonary: Negative except as above Urologic: Negative except as above BP 106/60 Pulse 72 Temp 96.3 ??F (35.7 ??C) Ht 5' 8 (1.727 m) Wt 293 lb (133 kg) BMI 44.55 kg/m?? BSA 2.53 m?? WDWN female in NAD Skin No rash Head NCAT Neck No nodes, No TMG Lungs Clear Cor RRR no rub or gallop Abd BS+ nontender and soft. Ext trace edema, Psyche normal not depressed or anxious Recent Labs: 12/21/17 Cr 1.46, gfr 36 07/11/18 Cr 3.22, , gfr 14, vit d 50, TSH 0.06 01/07/19 Cr 3.45, gfr 13, Chol 66/42/150, 05/19/2019 Upro 162, UA 10-20W, Vit d 47 K/L 2.28, S+UIfx neg, ESR 45, EMA neg, C' nl, Hep c neg 11/12/2019 K/L 2.52 Lab Results Component Value Date BUN 29 (H) 10/26/2020 CREATININE 3.08 (H) 10/26/2020 EGFRAA 17 (L) 10/26/2020 EGFRAA 20 (L) 06/28/2020 EGFRAA 21 (L) 02/24/2020 EGFR 15 (L) 10/26/2020 EGFR 17 (L) 06/28/2020 EGFR 18 (L) 02/24/2020 PROTCREATUR 106 10/26/2020 PROTCREATUR 0.106 10/26/2020 PROTCREATUR 185 (H) 06/28/2020 PROTCREATUR 0.185 (H) 06/28/2020 NA 138 10/26/2020 K 4.9 10/26/2020 CL 98 10/26/2020 CO2 32 10/26/2020 CA 9.5 10/26/2020 PHOSPHATE 4.3 10/26/2020 ALBUMIN 3.9 10/26/2020 GLUCOSE 98 10/26/2020 PTH 168 (H) 10/26/2020 VITD3 42 02/24/2020 WBC 9.6 10/26/2020 HGB 13.9 10/26/2020 PLT 166 10/26/2020 Radiology 07/14/2019 Renal U/S bilateral cortical thinning [...] Use KAPIL/ARB gfr too low Control bp this is good Control Cholesterol PTH/Vit D PTH is high. On calcitriol. pth still high. Avoid dairy. She drinks a lot of milk. Low protein diet Avoid NSAIDs Stay well hydrated CO2 is okay Pt went to [facility]. They re mulling over the modalities. Long discussion about this. 23 minutes. She has some low back pain (below kidneys). See will she pcp about this. The patients BMI is too high. Try to lose weight. Consider seeing a clinic md associate or PCP for help. She is thinking of [facility] discussed again how she should lose weight The patient had the pneumovax and the flu shot. Plan Lose weight Same meds [facility] Hep b vaccine. She got first two shots. RTC 4 months. Diagnoses and all orders for this visit: Chronic kidney disease, Stage V (CMS-HCC) Body mass index is 44.55 kg/m??. Follow up plan to address BMI is lose weight. . See above Diagnoses and all orders for this visit: Chronic kidney disease, Stage V (CMS-HCC) Body mass index is 44.55 kg/m??. Follow up plan to address BMI is high. . See above Assessment/Plan Diagnoses and all orders for this visit: Chronic kidney disease, Stage V (CMS-HCC) Body mass index is 44.55 kg/m??. Follow up plan to address BMI is too high. See above. documented in this encounter Plan of Treatment Not on file documented as of this encounter Visit Diagnoses Diagnosis Chronic kidney disease, Stage V (CMS-HCC)- Primary Chronic kidney disease, Stage V documented in this encounter Care Teams Forming Roll Operator Relationship Specialty Start Date End Date Gaudencio Miranda MD [address] [place] [id number] PCP - General Internal Medicine 01/14/19 documented as of this encounter
--- OUTSIDE RECORDS SUMMARY | 2024-03-07 14:16 | XMS_ITS | Encounter Summary ---
Author Organization [facility] utiyoan Address [address] [place] [address] Phone Care Team Providers Care Digital Media Director Name Role Phone Gaudencio Miranda MD Primary Care Provider [phone] Encounter Details Date Type Department Care Team (Late st Contact Info) Description 12/07/[address] [facility] Nephrology and Hypertension [address] [facility], [address] [address] Stevenson Penaloza MD 10[address] [facility], [address] [facility] [place] [address] Chronic kidney disease, Stage V (CMS-HCC) (Primary Dx); Secondary hyperparathyroidism (CMS-HCC) Social History Tobacco Use Types Packs/Day Years [...] of this encounter Plan of Treatment Scheduled Orders Name Type Priority Associated Diagnoses Orde r Schedule CBC (includes Differential/Platel ets) Lab Routine Chronic kidney disease, Stage V (CMS-HCC) Secondary hyperparathyroidism (CMS-HCC) 1 Occurrences starting 12/07/2021 until 12/07/2022 PTH Intact w/o Calcium, Serum Lab Routine Chronic kidney disease, Stage V (CMS-HCC) Secondary hyperparathyroidism (CMS-HCC) 1 Occurrences starting 12/07/2021 until 12/07/2022 Renal Function Panel (RFP) Lab Routine Chronic kidney disease, Stage V (CMS-HCC) Secondary hyperparathyroidism (CMS-HCC) 1 Occurrences starting 12/07/2021 until 12/07/2022 Total Protein w/ Creatinine, Urine, Random Lab Routine Chronic kidney disease, Stage V (CMS-HCC) Secondary hyperparathyroidism (CMS-HCC) 1 Occurrences starting 12/07/2021 until 12/07/2022 Vitamin D, 25-Hydroxy, Serum Lab Routine Chronic kidney disease, Stage V (CMS-HCC) Secondary hyperparathyroidism (CMS-HCC) 1 Occurrences starting 12/07/2021 until 12/07/2022 documented as of this encounter Visit Diagnoses Diagnosis Chronic kidney disease, Stage V (CMS-HCC)- Primary Chronic kidney disease, Stage V Secondary hyperparathyroidism (CMS-HCC) documented in this encounter Care Teams Digital Media Director Relationship Specialty Start Date End Date Gaudencio Miranda MD [address] [place] [address] PCP - General Internal Medicine 01/14/19 documented as of this encounter
--- OUTSIDE RECORDS SUMMARY | 2024-03-07 14:16 | XMS_ITS | Encounter Summary ---
Author Organization [facility] Address [address], [place] [address] Phone Care Team Providers Care Sr. Director Name Role Phone Gaudencio Miranda MD Primary Care Provider [phone] Encounter Details Date Type Department Care Team (Late st Contact Info) Description 12/06/2021 Telephone [facility] Nephrology and Hypertension [address] [place] [address], [address] [place] [address] Donnell Regan MA Social History Tobacco Use Types Packs/Day Years [...] encounter Miscellaneous Notes * Telephone Encounter - Donnell Regan MA - 12/27/2021 2:39 PM CDT Spoke to pt and she is rescheduled in March 2022 T * Telephone Encounter - Stevenson Penaloza MD - 12/06/2021 4:51 PM CDT Let pt know labs are stable Just avoid protein in excess and dairy products. * Telephone Encounter - Donnell Regan MA - 12/06/2021 9:30 AM CDT Daughter called and pt is sick and wont be able to come in tomorrow. Pt had labs done, could you check and make sure she can reschedule for March, or if we should puther on the [place] cancellation list. I told daughter I would call her back documented in this encounter Plan of Treatment Not on file documented as of this encounter Visit Diagnoses Not on filedocumented in this encounter Care Teams Sr. Director Relationship Specialty Start Date End Date Gaudencio Miranda MD [address] [place] [id number] PCP - General Internal Medicine 01/14/19 documented as of this encounter
--- OUTSIDE RECORDS SUMMARY | 2024-03-07 14:16 | XMS_ITS | Encounter Summary ---
Author Organization [facility] Address [address] [address] Phone Care Team Providers Care Media Clerk Name Role Phone Gaudencio Miranda MD Primary Care Provider [phone] Encounter Details Date Type Department Care Team (Late st Contact Info) Description 11/17/2019 Telephone [facility] Nephrology and Hypertension [address] [facility], [address] [place] [address] Stevenson Penaloza MD [address] [facility], [address] [place] [address] Social History Tobacco Use Types Packs/Day Years [...] encounter Miscellaneous Notes * Telephone Encounter - Lia Penaloza MA - 11/18/2019 2:33 PM CDT Faxed note asking her to call pt. * Telephone Encounter - Stevenson Penaloza MD - 11/17/2019 1:13 PM CDT Please ask Emmanuelle to call pt to schedule kidney smart documented in this encounter Plan of Treatment Not on file documented as of this encounter Visit Diagnoses Not on filedocumented in this encounter Care Teams Media Clerk Relationship Specialty Start Date End Date Gaudencio Miranda MD [address] [place] [address] PCP - General Internal Medicine 01/14/19 documented as of this encounter
--- OUTSIDE RECORDS SUMMARY | 2024-03-07 14:16 | XMS_ITS | Encounter Summary ---
Author Organization [facility] Address [address], [place] [address] Phone Care Team Providers Care Embossing Press Operator Molded Goods Name Role Phone Gaudencio Miranda MD Primary Care Provider [phone] Encounter Details Date Type Department Care Team (Late st Contact Info) Description 03/09/2021 2:00 PM PULPER TENDER Office Visit [facility] Nephrology and Hypertension [address] [place] [address], [address] [place] [address] Stevenson Penaloza MD [address] [facility], [address] [place] [address] Chronic kidney disease, Stage V (CMS-HCC) (Primary [...] Sign Reading Time Taken Comments Blood Pressure 128/70 03/09/2021 2:01 PM PULPER TENDER Pulse 60 03/09/2021 2:01 PM PULPER TENDER Temperature 35.7 ??C (96.2 ??F) 03/09/2021 2:01 PM CS T Respiratory Rate - - Oxygen Saturation - - Inhaled Oxygen Concentration - - Weight 137 kg (302 lb) 03/09/2021 2:01 PM PULPER TENDER Height 172.7 cm (5' 8 ) 03/09/2021 2:01 PM PULPER TENDER Body Mass Index 45.92 03/09/2021 2:01 PM PULPER TENDER documented in this encounter Progress Notes * Stevenson Penaloza MD - 03/09/2021 2:00 PM CST Peg Son is a pleasant 70 y.o.female. Peg is a very pleasant lady who comes in because of an elevated creatinine. No new problems urinating Avoiding excess meat by taste.. Had fistula done then postop had sob so saw pulmonary who found something in her lungs and he is doing evaluation of that. 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 No recent developments The patient has fibromyalgia. She now says she does not snore after all. She has a special bed and the HOB raises. Past history: societies, swelling, cirrhosis, fibromyalgia. Allergies Allergen Reactions ??? Aspirin Anaphylaxis ??? Sulfa Antibiotics Hives Reaction: Hives, ??? Peanut (Diagnostic) Unknown Social History Tobacco Use ??? Smoking status: Former Smoker ??? Smokeless tobacco: Never Used Substance Use Topics ??? Alcohol use: Never ??? Drug use: Not on file ROS Constitutional: Negative except as above Skin: Negative except as above Pulmonary: Negative except as above Urologic: Negative except as above BP 128/70 Pulse 60 Temp 96.2 ??F (35.7 ??C) Ht 5' 8 (1.727 m) Wt (!) 302 lb (137 kg) BMI45.92 kg/m?? BSA 2.56 m?? WDWN female in NAD Skin No rash Head NCAT Neck No nodes, No TMG Lungs Clear Cor RRR no rub or gallop Abd BS+ nontender and soft. Ext 1+ edema, with compression stockings Psyche normal not depressed or anxious Recent Labs: 12/21/17 Cr 1.46, gfr 36 07/11/18 Cr 3.22, , gfr 14, vit d 50, TSH 0.06 01/07/19 Cr 3.45, gfr 13, Chol 66/42/150, 05/19/2019 Upro 162, UA 10-20W, Vit d 47 K/L 2.28, S+UIfx neg, ESR 45, EMA neg, C' nl, Hep c neg 11/12/2019 K/L 2.52 Lab Results Component Value Date BUN 38 (H) 03/03/2021 CREATININE 2.14 (H) 03/03/2021 EGFRAA 26 (L) 03/03/2021 EGFRAA 17 (L) 10/26/2020 EGFRAA 20 (L) 06/28/2020 EGFR 22 (L) 03/03/2021 EGFR 15 (L) 10/26/2020 EGFR 17 (L) 06/28/2020 PROTCREATUR 130 03/03/2021 PROTCREATUR 0.130 03/03/2021 PROTCREATUR 106 10/26/2020 PROTCREATUR 0.106 10/26/2020 NA 141 03/03/2021 K 3.8 03/03/2021 CL 97 (L) 03/03/2021 CO2 36 (H) 03/03/2021 CA 9.7 03/03/2021 PHOSPHATE 3.4 03/03/2021 ALBUMIN 3.9 03/03/2021 GLUCOSE 135 (H) 03/03/2021 PTH 109 (H) 03/03/2021 VITD3 42 02/24/2020 WBC 5.9 03/03/2021 HGB 13.1 03/03/2021 PLT 165 03/03/2021 Lab Results Component Value Date HEPBSAB NON-REACTIVE 02/24/2020 Radiology 07/14/2019 Renal U/S bilateral cortical thinning [...] Control bp this is good Control Cholesterol per Lopatin PTH/Vit D PTH is high. On calcitriol. pth target for stage 4. Low protein diet Avoid NSAIDs Stay well hydrated CO2 is okay Tried a fistula but clotted so will do a graft when closer to dialysis. The patients BMI is too high. Try to lose weight. Consider seeing a band tacker or PCP for help. She is thinking of nutrasystems discussed again how she should lose weight The patient had the pneumovax and the flu shot. Plan Lose weight Same meds Kidney smart Hep b vaccine. She got first two shots. She forgot about the third shot. She will get this done RTC 4 months. Diagnoses and all orders for this visit: Chronic kidney disease, Stage V (CMS-HCC) Body mass index is 45.92 kg/m??. Follow up plan to address BMI is lose weight. . See above Diagnoses and all orders for this visit: Chronic kidney disease, Stage V (CMS-HCC) Body mass index is 45.92 kg/m??. Follow up plan to address BMI is high. . See above Assessment/Plan Diagnoses and all orders for this visit: Chronic kidney disease, Stage V (CMS-HCC) Body mass index is 45.92 kg/m??. Follow up plan to address BMI is too high. See above. documented in this encounter Plan of Treatment Not on file documented as of this encounter Procedures Procedure Name Priority Date/Time Associated Diagnosis Comments SPECIMEN INTEGRITY COMPROMISED Routine 07/27/2021 1:15 PM CDT TOTAL PROTEIN W/ CREATININE, URINE, RANDOM Routine 07/27/2021 1:15 PM CDT Chronic kidney disease, Stage V (CMS-HCC) CBC (INCLUDES DIFFERENTIAL/PLATELE TS) Routine 07/27/2021 1:15 PM CDT Chronic kidney disease, Stage V (CMS-HCC) RENAL FUNCTION PANEL (RFP) Routine 07/27/2021 1:15 PM CDT Chronic kidney disease, Stage V (CMS-HCC) PTH INTACT W/O CALCIUM, SERUM Routine 07/27/2021 1:15 PM CDT Chronic kidney disease, Stage V (CMS-HCC) documented in this encounter Results * Specimen Integrity Compromised (07/27/2021 1:15 PM CDT) SPECIMEN INTEGRITY$COMPR [facility]ED [facility] Comment: Whole blood, unspun or partially spun gel barrier tube was received more than 6 hours since collection. A false elevation of K, Phos and LD as well as a false decrease in glucose may occur due to prolonged contact with red cells. 07/27/2021 1:15 PM CDT 07/27/2021 1:16 PM CDT Narrative Resulting Agency Comment Performing Organization Information: ?Site ID: [id number] ?Name: [facility] ?Address: [facility] [place] [address] ?Director: Hal Arnold D.O., MPH Stevenson Penaloza MD LAB BLOOD ORDERABLES Performing Organization Address City/[facility]/ZIP Co de Phone Number [facility] ([facility]) * Total Protein w/ Creatinine, Urine, Random (07/27/2021 1:15 PM CDT) Creatinine, Urine 106 20 - 275 mg/dL [facility] ([facility]) Protein/Creatin ine, Urine 123 21 - 161 mg/g creat [facility] ([facility]) Protein/Creatin ine, Urine 0.123 0.021 - 0.161 mg/mg creat [facility] ([facility]) Protein, Urine 13 5 - 24 mg/dL [facility] ([facility]) 07/27/2021 1:15 PM CDT 07/27/2021 1:16 PM CDT Narrative Resulting Agency Comment Performing Organization Information: ?Site ID: [id number] ?Name: [facility] ?Address: [facility] [place] [address] ?Director: Hal Arnold D.O., MPH Stevenson Penaloza MD LAB URINE ORDERABLES Performing Organization Address City/[facility]/ZIP Co de Phone Number [facility]. [facility] [place] ([facility]) * (ABNORMAL) Renal Function Panel (RFP) (07/27/2021 1:15 PM CDT) [facility] Glucose, Serum/Plasma 97 65 - 99 mg/dL [facility] [place] ([facility]) Comment: ? Fasting reference interval Urea nitrogen, Serum/Plasma (BUN) 42(H) 7 - 25 mg/dL [facility] [place] (ST) Creatinine, Serum/Plasma 2.46(H) 0.60 - 0.93 mg/dL [facility]) Comment: For patients >49 years of age, the reference limit for Creatinine is approximately 13% higher for people identified as -[place]oc[place]. eGFR, non 19(L) > OR = 60 mL/min/1. 73m2 [facility]) eGFR, 22(L) > OR = 60 mL/min/1. 73m2 [facility] ([facility]) Urea nitrogen/Creatinin e, Serum/Plasma 17 6 - 22 (calc) [facility] (ST) Sodium, Serum/Plasma 139 135 - 146 mmol/L [facility] ([facility]) Potassium, Serum/Plasma 4.3 3.5 - 5.3 mmol/L [facility] ([facility]) Chloride, Serum/Plasma 97(L) 98 - 110 mmol/L [facility] (ST) Carbon dioxide CO2), total, Serum/Plasma 35(H) 20 - 32 mmol/L [facility] ([facility]) Calcium, Serum/Plasma 9.9 8.6 - 10.4 mg/dL [facility] ([facility]) Phosphate, Serum/Plasma 4.2 2.1 - 4.3 mg/dL [facility] ([facility]) Albumin, Serum/Plasma 4.2 3.6 - 5.1 g/dL [facility] (ST) Blood 07/27/2021 1:15 PM CDT 07/27/2021 1:16 PM CDT Narrative Resulting Agency Comment Performing Organization Information: ?Site ID: [id number] ?Name: [facility] ?Address: [address] [place] [address] ?Director: Hal Arnold D.O. MPH Stevenson Penaloza MD LAB BLOOD ORDERABLES [facility] (ST) * (ABNORMAL) PTH Intact w/o Calcium, Serum (07/27/2021 1:15 PM CDT) PTH, Intact, Serum/Plasma 117(H) 16 - 77 pg/mL [facility] ([facility]) Comment: Interpretive Guide ?Intact PTH ? Calcium ? ------- Normal Parathyroid ?Normal ? Normal Hypoparathyroidism ?Low or Low Normal ?Low Hyperparathyroidism ?? Primary ?Normal or High ? High ?? Secondary ?High ? Normal or Low ?? Tertiary ? High ? High Non-Parathyroid ?? Hypercalcemia ?Low or Low Normal ?High Blood 07/27/2021 1:15 PM CDT 07/27/2021 1:16 PM CDT Narrative Resulting Agency Comment Performing Organization Information: ?Site ID: [id number] ?Name: [facility] ?Address: [address] [place] [address] [address] ?Director: Hal Arnold D.O. MPH Stevenson Penaloza MD LAB BLOOD ORDERABLES [facility] [place] ([facility]) * CBC (includes Differential/Platelets) (07/27/2021 1:15 PM CDT) [facility] Leukocytes, Blood 5.0 3.8 - 10.8 Thousand/u L [facility] ([facility]) Erythrocytes (RBC) 4.30 3.80 - 5.10 Million/uL [facility] ([facility]) Hemoglobin (HGB) 13.4 11.7 - 15.5 g/dL [facility] ([facility]) Hematocrit (HCT) 40.4 35.0 - 45.0 % [facility] ([facility]) MCV 94.0 80.0 - 100.[address] [facility] ([facility]) MCH 31.2 27.0 - 33.[address] [facility] ([facility]) MCHC 33.2 32.0 - 36.0 g/dL [facility] ([facility]) Erythrocyte Distribution Width (RDW) 12.8 11.0 - 15.0 % [facility] ([facility]) Platelets, Blood 167 140 - 400 Thousand/u L [facility] ([facility]) Platelet mean volume, Blood 11.4 7.5 - 12.[address] [facility] ([facility]) Neutrophils, Blood 2,230 1,500 - 7,800 cells/uL [facility] ([facility]) Lymphocytes, Blood 1,840 850 - 3,900 cells/uL [facility] ([facility]) Monocytes, Blood 620 200 - 950 cells/uL [facility] ([facility]) Eosinophils, Blood 250 15 - 500 cells/uL [facility] ([facility]) Basophils, Blood 60 0 - 200 cells/uL [facility] ([facility]) Neutrophils/100 leukocytes, Blood 44.6 % [facility] ([facility]) Lymphocytes/100 leukocytes, Blood 36.8 % [facility] ([facility]) Monocytes/100 leukocytes, Blood 12.4 % [facility] ([facility]) Eosinophils/100 leukocytes, Blood 5.0 % [facility]) Basophils/100 leukocytes, Blood 1.2 % [facility] ([facility]) Blood 07/27/2021 1:15 PM CDT 07/27/2021 1:16 PM CDT Narrative Resulting Agency Comment Performing Organization Information: ?Site ID: [id number] ?Name: [facility] ?Address: [facility] [place] [id number] ?Director: Hal Arnold D.O., MPH Stevenson Penaloza MD LAB BLOOD ORDERABLES [facility] ([facility]) documented in this encounter Visit Diagnoses Diagnosis Chronic kidney disease, Stage V (CMS-HCC)- Primary Chronic kidney disease, Stage V documented in this encounter Care Teams Embossing Press Operator Molded Goods Relationship Specialty Start Date End Date Gaudencio Miranda MD [address] [place] [address] PCP - General Internal Medicine 01/14/19 documented as of this encounter
--- OUTSIDE RECORDS SUMMARY | 2024-03-07 14:16 | XMS_ITS | Encounter Summary ---
Author Organization [facility] Address [address] [place] [address] Phone Care Team Providers Care Cutter First Name Role Phone Gaudencio Miranda MD Primary Care Provider [phone] Encounter Details Date Type Department Care Team (Late st Contact Info) Description 07/29/2019 Telephone [facility] Nephrology and Hypertension [address] [facility], [address] [facility] [place] [address] Stevenson Penaloza MD [address], [address] [place] [address] Social History Tobacco Use Types Packs/Day Years [...] Telephone Encounter - Stevenson Penaloza MD - 07/29/2019 4:02 PM CDT ----- Message from Stevenson Penaloza MD sent at 07/07/2019 11:01 AM CDT ----- K/L also next visit documented in this encounter Plan of Treatment Not on file documented as of this encounter Procedures Procedure Name Priority Date/Time Associated Diagnosis Comments KAPPA/LAMBDA FREE LIGHT CHAINS, QN, SERUM Routine 11/12/2019 10:06 AM CDT Chronic kidney disease, Stage V (CMS-HCC) VITAMIN D, 25-HYDROXY, SERUM Routine 11/12/2019 10:06 AM CDT Chronic kidney disease, Stage V (CMS-HCC) CBC (INCLUDES DIFFERENTIAL/PLATEL ETS) Routine 11/12/2019 10:06 AM CDT Chronic kidney disease, Stage V (CMS-HCC) RENAL FUNCTION PANEL (RFP) Routine 11/12/2019 10:06 AM CDT Chronic kidney disease, Stage V (CMS-[facility]) PTH INTACT W/O CALCIUM, SERUM Routine 11/12/2019 10:06 AM CDT Chronic kidney disease, Stage V (CMS-[facility]) documented in this encounter Results * (ABNORMAL) Coalgate and Lambda Free Light Chains, Qn, Serum (11/12/2019 10:06 AM CDT) Coalgate light chains, free, Serum 108.8(H) 3.3 - 19.4 mg/L [facility] ([facility]) Lambda light chains, free, Serum/Plasma 43.2(H) 5.7 - 26.3 mg/L [facility] [place] ([facility]) Coalgate light chains, free/Lambda light chains, free, Serum 2.52(H) 0.26 - 1.[address] [facility] [place] ([facility]) Comment: Free kappa/lambda ratio in serum of normal individuals is 0.26-1.65. Excess production of free kappa or lambda chains can alter this ratio. Monoclonal free light chains are found in serum of patients with multiple myeloma, Waldenstrom's macroglobulinemia, mu-heavy chain disease, primary amyloidosis, light chain deposition disease, monoclonal gammopathy of undetermined significance, and lymphoproliferative disorders. Measurement of free light chain concentration in serum is useful for diagnosis, prognosis, monitoring disease activity and following response to therapy of these disorders. 11/12/2019 10:0 6 AM CDT 11/12/2019 10:07 AM CDT Narrative Resulting Agency Comment Performing Organization Information: ?Site ID: [id number] ?Name: [employer] ?Address: [address] [place] [address] ?Director: Hal Arnold D.O., MPH Stevenson Penaloza MD LAB BLOOD ORDERABLES [facility] ([facility]) * Vitamin D, 25-Hydroxy, Serum (11/12/2019 10:06 AM CDT) Calcidiol, Serum/Plasma 51 30 - 100 ng/mL [facility] ([facility]) Comment: Vitamin D Status ? 25-OH Vitamin D: Deficiency: ?<20 ng/mL Insufficiency: ? 20 - 29 ng/mL Optimal: ? > or = 30 ng/mL For 25-OH Vitamin D testing on patients on D2-supplementation and patients for whom quantitation of D2 and D3 fractions is required, the QuestAssureD(TM) 25-OH VIT D, (D2,D3), LC/MS/MS is recommended: order code 61175 (patients >2yrs). See Note 1 Note 1 For additional information, please refer to http://education.[employer]/faq/CPG762 (This link is being provided for informational/ educational purposes only.) 11/12/2019 10:0 6 AM CDT 11/12/2019 10:07 AM CDT Narrative Resulting Agency Comment Performing Organization Information: ?Site ID: [id number] ?Name: [employer] ?Address: [address] [place] [address] ?Director: Hal Arnold D.O., MPH Stevenson Penaloza MD LAB BLOOD ORDERABLES [facility] [place] [facility] * (ABNORMAL) Renal Function Panel (RFP) (11/12/2019 10:06 AM CDT) Glucose, Serum/Plasma 87 65 - 99 mg/dL [facility] [place] (STL) Comment: ? Fasting reference interval Urea nitrogen, Serum/Plasma (BUN) 28(H) 7 - 25 mg/dL [facility] [place] (STL) Creatinine, Serum/Plasma 2.67(H) 0.60 - 0.93 mg/dL [facility] [place] (STL) Comment: For patients >49 years of age, the reference limit for Creatinine is approximately 13% higher for people identified as -Montenegr[place]. eGFR, non 17(L) > OR = 60 mL/min/1. 73m2 [facility] [place] (STL) eGFR, 20(L) > OR = 60 mL/min/1. 73m2 [facility] [place] (STL) Urea nitrogen/Creatinin e, Serum/Plasma 10 6 - 22 (calc) [facility] [place] ([facility]) Sodium, Serum/Plasma 142 135 - 146 mmol/L [facility]. [facility] [place] ([facility]) Potassium, Serum/Plasma 4.1 3.5 - 5.3 mmol/L [facility] [place] (ST[facility]) Chloride, Serum/Plasma 102 98 - 110 mmol/L [facility] [place] (ST[facility]) Carbon dioxide CO2), total, Serum/Plasma 35(H) 20 - 32 mmol/L [facility] [place] ([facility]) Calcium, Serum/Plasma 9.6 8.6 - 10.4 mg/dL [facility]. [facility] [place] ([facility]) Phosphate, Serum/Plasma 3.3 2.1 - 4.3 mg/dL [facility] [place] ([facility]) Albumin, Serum/Plasma 4.0 3.6 - 5.1 g/dL [facility] [place] ([facility]) Blood 11/12/2019 10:0 6 AM CDT 11/12/2019 10:07 AM CDT Narrative Resulting Agency Comment Performing Organization Information: ?Site ID: [id number] ?Name: [employer] ?Address: [address] [address] ?Director: Hal Arnold D.O., MPH Stevenson Penaloza MD LAB BLOOD ORDERABLES [facility] [place] ([facility]) * (ABNORMAL) PTH Intact w/o Calcium, Serum (11/12/2019 10:06 AM CDT) PTH, Intact, Serum/Plasma 113(H) 14 - 64 pg/mL [facility] [place] ([facility]) Comment: Interpretive Guide ?Intact PTH ? Calcium ? ------- Normal Parathyroid ?Normal ? Normal Hypoparathyroidism ?Low or Low Normal ?Low Hyperparathyroidism ?? Primary ?Normal or High ? High ?? Secondary ?High ? Normal or Low ?? Tertiary ? High ? High Non-Parathyroid ?? Hypercalcemia ?Low or Low Normal ?High Blood 11/12/2019 10:0 6 AM CDT 11/12/2019 10:07 AM CDT Narrative Resulting Agency Comment Performing Organization Information: ?Site ID: [place] ?Name: [facility] ?Address: [address] [address] ?Director: Hal Arnold D.O., MPH Stevenson Penaloza MD LAB BLOOD ORDERABLES [facility] [place] ([facility]) * CBC (includes Differential/Platelets) (11/12/2019 10:06 AM CDT) Pathologist [facility] Leukocytes, Blood 6.7 3.8 - 10.8 Thousand/u L [facility] [place] ([facility]) Erythrocytes (RBC) 4.17 3.80 - 5.10 Million/uL [facility] [place] ([facility]) Hemoglobin (HGB) 12.9 11.7 - 15.5 g/dL [facility] [place] ([facility]) Hematocrit (HCT) 39.8 35.0 - 45.0 % [facility] [place] ([facility]) MCV 95.4 80.0 - 100.[address] [facility] [place] ([facility]) MCH 30.9 27.0 - 33.0 [address] [facility] [place] ([facility]) MCHC 32.4 32.0 - 36.0 g/dL [facility] [place] ([facility]) Erythrocyte Distribution Width (RDW) 11.8 11.0 - 15.0 % [facility] [place] ([facility]) Platelets, Blood 186 140 - 400 Thousand/u L [facility] [place] ([facility]) Platelet mean volume, Blood 11.4 7.5 - 12.5 fL [facility] [place] ([facility]) Neutrophils, Blood 3,591 1,500 - 7,800 cells/uL [facility] [place] ([facility]) Lymphocytes, Blood 1,930 850 - 3,900 cells/uL [facility] [place] ([facility]) Monocytes, Blood 864 200 - 950 cells/uL [facility] [place] ([facility]) Eosinophils, Blood 268 15 - 500 cells/uL [facility] [place] ([facility]) Basophils, Blood 47 0 - 200 cells/uL [facility] [place] ([facility]) Neutrophils/100 leukocytes, Blood 53.6 % [facility] [place] ([facility]) Lymphocytes/100 leukocytes, Blood 28.8 % [facility] [place] ([facility]) Monocytes/100 leukocytes, Blood 12.9 % [facility] [place] ([facility]) Eosinophils/100 leukocytes, Blood 4.0 % [facility] [place] ([facility]) Basophils/100 leukocytes, Blood 0.7 % [facility] [place] ([facility]) Blood 11/12/2019 10:0 6 AM CDT 11/12/2019 10:07 AM CDT Narrative Resulting Agency Comment Performing Organization Information: ?Site ID: [id number] ?Name: [facility] ?Address: [address] [place] [address] [place] [address] ?Director: Hal Arnold D.O., MPH Stevenson Penaloza MD LAB BLOOD ORDERABLES [facility] [place] ([facility]) documented in this encounter Visit Diagnoses Diagnosis Chronic kidney disease, Stage V ([facility]-HCC)- Primary Chronic kidney disease, Stage V documented in this encounter Care Teams Cutter First Relationship Specialty Start Date End Date Gaudencio Miranda MD [address] [place], [place] [id number] PCP - General Internal Medicine 01/14/19 documented as of this encounter
--- OUTSIDE RECORDS SUMMARY | 2024-03-07 14:16 | XMS_ITS | Encounter Summary ---
Author Organization [facility] Address [address], [place] [address] Phone Care Team Providers Care Service Member Name Role Phone Gaudencio Miranda MD Primary Care Provider [phone] Encounter Details Date Type Department Care Team (Late st Contact Info) Description 08/03/2021 2:00 PM CDT Office Visit [facility] Nephrology and Hypertension [address] [place] [address], [address] [place] [address] Nikki Penaloza MD [address] [facility], [address] [place] [address] Chronic kidney disease, Stage V (CMS-HCC) (Primary [...] Sign Reading Time Taken Comments Blood Pressure 124/72 08/03/2021 1:59 PM CDT Pulse 72 08/03/2021 1:59 PM CDT Temperature 36.2 ??C (97.2 ??F) 08/03/2021 1:59 PM CD T Respiratory Rate - - Oxygen Saturation - - Inhaled Oxygen Concentration - - Weight 134 kg (295 lb) 08/03/2021 1:59 PM CDT Height 172.7 cm (5' 8 ) 08/03/2021 1:59 PM CDT Body Mass Index 44.85 08/03/2021 1:59 PM CDT documented in this encounter Patient Instructions * Patient Instructions* Nikki Penaloza MD - 08/03/2021 2:00 PM CDT l documented in this encounter Progress Notes * Nikki Penaloza MD - 08/03/2021 2:00 PM CDT Peg Son is a pleasant 70 y.o.female. Peg is a very pleasant lady who comes in because of an elevated creatinine. No new problems urinating Avoiding excess meat by taste.. Had fistula done but didn't take. Will do graft closer to dialysis. She sees pulmonary and is on oxygen when at home. Due to COPD. She has a mass in RLL but is only dense tissue. The patient has cirrhosis. This Is cryptogenic [...] above Urologic: Negative except as above BP 124/72 Pulse 72 Temp 97.2 ??F (36.2 ??C) Ht 5' 8 (1.727 m) Wt 295 lb (134 kg) BMI 44.85 kg/m?? BSA 2.54 m?? WDWN female in NAD Skin No rash Head NCAT Neck No nodes, No TMG Lungs Clear Cor RRR no rub or gallop Abd BS+ nontender and soft. Ext 1+ edema Psyche normal not depressed or anxious Recent Labs: 12/21/17 Cr 1.46, gfr 36 07/11/18 Cr 3.22, , gfr 14, vit d 50, TSH 0.06 01/07/19 Cr 3.45, gfr 13, Chol 66/42/150, 05/19/2019 Upro 162, UA 10-20W, Vit d 47 K/L 2.28, S+UIfx neg, ESR 45, EMA neg, C' nl, Hep c neg 11/12/2019 K/L 2.52 Lab Results Component Value Date BUN 42 (H) 07/27/2021 CREATININE 2.46 (H) 07/27/2021 EGFRAA 22 (L) 07/27/2021 EGFRAA 26 (L) 03/03/2021 EGFRAA 17 (L) 10/26/2020 EGFR 19 (L) 07/27/2021 EGFR 22 (L) 03/03/2021 EGFR 15 (L) 10/26/2020 PROTCREATUR 123 07/27/2021 PROTCREATUR 0.123 07/27/2021 PROTCREATUR 130 03/03/2021 PROTCREATUR 0.130 03/03/2021 NA 139 07/27/2021 K 4.3 07/27/2021 CL 97 (L) 07/27/2021 CO2 35 (H) 07/27/2021 CA 9.9 07/27/2021 PHOSPHATE 4.2 07/27/2021 ALBUMIN 4.2 07/27/2021 GLUCOSE 97 07/27/2021 PTH 117 (H) 07/27/2021 VITD3 42 02/24/2020 WBC 5.0 07/27/2021 HGB 13.4 07/27/2021 PLT 167 07/27/2021 Lab Results Component Value Date HEPBSAB NON-REACTIVE 02/24/2020 She had first two shots. Radiology 07/14/2019 Renal U/S bilateral cortical thinning [...] Lopatin PTH/Vit D PTH is high. On low protein diet. Check vit d next visit Low protein diet Avoid NSAIDs Stay well hydrated CO2 is okay Tried a fistula but clotted so will do a graft when closer to dialysis. The patients BMI is too high. Try to lose weight. Consider seeing a inspector rag sorting or PCP for help. She is thinking of [employer]rasystems discussed again how she should lose weight The patient had the pneumovax and the flu shot. Plan Lose weight Same meds Hep b vaccine. She got first two shots. She forgot about the third shot. She will get this done RTC 4 months. Diagnoses and all orders for this visit: Chronic kidney disease, Stage V (CMS-HCC) Body mass index is 44.85 kg/m??. Follow up plan to address BMI is lose weight. . See above Diagnoses and all orders for this visit: Chronic kidney disease, Stage V (CMS-HCC) Body mass index is 44.85 kg/m??. Follow up plan to address BMI is lose weight. . See above Diagnoses and all orders for this visit: Chronic kidney disease, Stage V (CMS-HCC) Body mass index is 44.85 kg/m??. Follow up plan to address BMI is high. . See above Assessment/Plan Diagnoses and all orders for this visit: Chronic kidney disease, Stage V (CMS-HCC) Body mass index is 44.85 kg/m??. Follow up plan to address BMI is too high. See above. documented in this encounter Miscellaneous Notes * Addendum Note - Nikki Penaloza MD - 08/03/2021 2:00 PM CDTAddended by: NIKKI PENALOZA on: 08/03/2021 02:11 PM Modules accepted: Orders documented in this encounter Plan of Treatment Not on file documented as of this encounter Procedures Procedure Name Priority Date/Time Associated Diagnosis Comments TOTAL PROTEIN W/ CREATININE, URINE, RANDOM Routine 11/29/2021 11:00 PM CDT Chronic kidney disease, Stage V (CMS-HCC) VITAMIN D, 25-HYDROXY, SERUM Routine 11/29/2021 11:00 PM CDT Chronic kidney disease, Stage V (CMS-HCC) CBC (INCLUDES DIFFERENTIAL/PLATEL ETS) Routine 11/29/2021 11:00 PM CDT Chronic kidney disease, Stage V (CMS-HCC) RENAL FUNCTION PANEL (RFP) Routine 11/29/2021 11:00 PM CDT Chronic kidney disease, Stage V (CMS-HCC) PTH INTACT W/O CALCIUM, SERUM Routine 11/29/2021 11:00 PM CDT Chronic kidney disease, Stage V (CMS-HCC) documented in this encounter Results * Vitamin D, 25-Hydroxy, Serum (11/29/2021 11:00 PM CDT) Calcidiol, Serum/Plasma 78 30 - 100 ng/mL [employer] [facility] (ST) Comment: Vitamin D Status ? 25-OH Vitamin D: Deficiency: ?<20 ng/mL Insufficiency: ? 20 - 29 ng/mL Optimal: ? > or = 30 ng/mL For 25-OH Vitamin D testing on patients on D2-supplementation and patients for whom quantitation of D2 and D3 fractions is required, the [facility]() 25-OH VIT D, (D2,D3), LC/MS/MS is recommended: order code 19838 (patients >2yrs). See Note 1 Note 1 For additional information, please refer to http://education.[employer]/faq/NJP364 (This link is being provided for informational/ educational purposes only.) 11/29/2021 11:0 0 PM CDT 11/30/2021 12:14 PM CDT Narrative [employer] [facility] (ST) - 12/01/2021 11:14 AM CDT FASTING:NO FASTING: NO Resulting Agency Comment Performing Organization Information: ?Site ID: [id number] ?Name: [employer] ?Address: [address] [id number] ?Director: Hal Arnold D.O., MPH Nikki Penaloza MD LAB BLOOD ORDERABLES [facility] [place] ([facility]) * (ABNORMAL) Renal Function Panel (RFP) (11/29/2021 11:00 PM CDT) Pathologist [facility] Glucose, Serum/Plasma 97 65 - 139 mg/dL [facility] [place] ([facility]) Comment: ? Non-fasting reference interval Urea nitrogen, Serum/Plasma (BUN) 42(H) 7 - 25 mg/dL [facility] [place] ([facility]) Creatinine, Serum/Plasma 2.37(H) 0.60 - 1.00 mg/dL [facility] [place] ([facility]) Estimated Glomerular Filtration Rate (eGFR) 21(L) > OR = 60 mL/min/1.7 3m2 [facility]. [facility] [place] ([facility]) Comment: The eGFR is based on the CKD-EPI 2020 equation. To calculate the new eGFR from a previous Creatinine or Cystatin C result, go to https://www.kidney.org/professionals/ kdoqi/gfr%5Fcalculator Urea nitrogen/Creati nine, Serum/Plasma 18 6 - 22 (calc) [facility] [place] ([facility]) Sodium, Serum/Plasma 140 135 - 146 mmol/L [facility] [place] ([facility]) Potassium, Serum/Plasma 4.3 3.5 - 5.3 mmol/L [facility] [place] ([facility]) Chloride, Serum/Plasma 96(L) 98 - 110 mmol/L [facility] [place] ([facility]) Carbon dioxide CO2), total, Serum/Plasma 38(H) 20 - 32 mmol/L [facility] [place] ([facility]) Calcium, Serum/Plasma 10.2 8.6 - 10.4 mg/dL [facility] [place] ([facility]) Phosphate, Serum/Plasma 4.0 2.1 - 4.3 mg/dL [facility] [place] ([facility]) Albumin, Serum/Plasma 4.2 3.6 - 5.1 g/dL [facility] [place] ([facility]) Blood 11/29/2021 11:0 0 PM CDT 11/30/2021 12:14 PM CDT Narrative [facility] [place] ([facility]) - 12/01/2021 11:14 AM CDT FASTING:NO FASTING: NO Resulting Agency Comment Performing Organization Information: ?Site ID: [id number] ?Name: [employer] ?Address: [address] [place] [address] [place] [address] ?Director: Hal Arnold D.O., MPH Nikki Penaloza MD LAB BLOOD ORDERABLES [facility] [place] (ST) * Total Protein w/ Creatinine, Urine, Random (11/29/2021 11:00 PM CDT) Creatinine, Urine 87 20 - 275 mg/dL [facility] [place] ([facility]) Protein/Creatin ine, Urine 80 24 - 184 mg/g creat [facility] [place] ([facility]) Protein/Creatin ine, Urine 0.080 0.024 - 0.184 mg/mg creat [facility] [place] ([facility]) Protein, Urine 7 5 - 24 mg/dL [facility] [place] ([facility]) 11/29/2021 11:0 0 PM CDT 11/30/2021 12:14 PM CDT Narrative [facility] [place] ([facility]) - 12/01/2021 11:14 AM CDT FASTING:NO FASTING: NO Resulting Agency Comment Performing Organization Information: ?Site ID: [id number] ?Name: [employer] ?Address: [address] [address] ?Director: Hal Arnold D.O., MPH Nikki Penaloza MD LAB URINE ORDERABLES [facility]) * (ABNORMAL) PTH Intact w/o Calcium, Serum (11/29/2021 11:00 PM CDT) PTH, Intact, Serum/Plasma 85(H) 16 - 77 pg/mL [facility] ([facility]) Comment: Interpretive Guide ?Intact PTH ? Calcium ? ------- Normal Parathyroid ?Normal ? Normal Hypoparathyroidism ?Low or Low Normal ?Low Hyperparathyroidism ?? Primary ?Normal or High ? High ?? Secondary ?High ? Normal or Low ?? Tertiary ? High ? High Non-Parathyroid ?? Hypercalcemia ?Low or Low Normal ?High Blood 11/29/2021 11:0 0 PM CDT 11/30/2021 12:14 PM CDT Narrative [facility] ([facility]) - 12/01/2021 11:14 AM CDT FASTING:NO FASTING: NO Resulting Agency Comment Performing Organization Information: ?Site ID: [place] ?Name: [employer] ?Address: [address] [id number] ?Director: Hal Arnold D.O., MPH Nikki Penaloza MD LAB BLOOD ORDERABLES [facility] [place] ([facility]) * CBC (includes Differential/Platelets) (11/29/2021 11:00 PM CDT) [facility] Leukocytes, Blood 6.4 3.8 - 10.8 Thousand/u L [facility] [place] ([facility]) Erythrocytes (RBC) 4.59 3.80 - 5.10 Million/uL [facility] [place] ([facility]) Hemoglobin (HGB) 14.3 11.7 - 15.5 g/dL [facility] [place] ([facility]) Hematocrit (HCT) 44.6 35.0 - 45.0 % [facility] [place] ([facility]) MCV 97.2 80.0 - 100.[address] [facility] [place] ([facility]) MCH 31.2 27.0 - 33.[address] [facility] [facility] [place] ([facility]) MCHC 32.1 32.0 - 36.0 g/dL [facility] [place] ([facility]) Erythrocyte Distribution Width (RDW) 12.6 11.0 - 15.0 % [facility] [place] ([facility]) Platelets, Blood 183 140 - 400 Thousand/u L [facility] [place] ([facility]) Platelet mean volume, Blood 11.4 7.5 - 12.[address] [facility] [facility] [place] ([facility]) Neutrophils, Blood 3,379 1,500 - 7,800 cells/uL [facility] [place] ([facility]) Lymphocytes, Blood 1,818 850 - 3,900 cells/uL [facility] [place] ([facility]) Monocytes, Blood 755 200 - 950 cells/uL [facility] [place] ([facility]) Eosinophils, Blood 378 15 - 500 cells/uL [facility] [place] ([facility]) Basophils, Blood 70 0 - 200 cells/uL [facility] [place] ([facility]) Neutrophils/100 leukocytes, Blood 52.8 % [facility] [place] ([facility]) Lymphocytes/100 leukocytes, Blood 28.4 % [facility] [place] ([facility]) Monocytes/100 leukocytes, Blood 11.8 % [facility] [place] ([facility]) Eosinophils/100 leukocytes, Blood 5.9 % [facility] [place] ([facility]) Basophils/100 leukocytes, Blood 1.1 % [facility] [place] ([facility]) Blood 11/29/2021 11:0 0 PM CDT 11/30/2021 12:14 PM CDT Narrative [facility] [place] ([facility]) - 12/01/2021 11:14 AM CDT FASTING:NO FASTING: NO Resulting Agency Comment Performing Organization Information: ?Site ID: [place] ?Name: [facility] ?Address: [address] [place] [id number] ?Director: Hal Arnold D.O., MPH Nikki Penaloza MD LAB BLOOD ORDERABLES [facility] [place] ([facility]) documented in this encounter Visit Diagnoses Diagnosis Chronic kidney disease, Stage V (CMS-HCC)- Primary Chronic kidney disease, Stage V documented in this encounter Care Teams Service Member Relationship Specialty Start Date End Date Gaudencio Miranda MD [address] [place] [address] PCP - General Internal Medicine 01/14/19 documented as of this encounter
--- OUTSIDE RECORDS SUMMARY | 2024-03-07 14:16 | XMS_ITS | Encounter Summary ---
Author Organization [facility] Address [address], [place] [address] Phone Care Team Providers Care Dry Transfer Man Name Role Phone Gaudencio Miranda MD Primary Care Provider [phone] Encounter Details Date Type Department Care Team (Late st Contact Info) Description 07/05/2020 1:00 PM CDT Office Visit [facility] Nephrology and Hypertension [address] [place] [address], [address] [place] [address] Stevenson Penaloza MD [address] [facility], [address] [place] [address] Chronic kidney disease, Stage V (CMS-HCC) (Primary [...] Sign Reading Time Taken Comments Blood Pressure 124/70 07/05/2020 1:06 PM CDT Pulse 72 07/05/2020 1:06 PM CDT Temperature 36.2 ??C (97.1 ??F) 07/05/2020 1:06 PM CD T Respiratory Rate - - Oxygen Saturation - - Inhaled Oxygen Concentration - - Weight 132 kg (292 lb) 07/05/2020 1:06 PM CDT Height 172.7 cm (5' 8 ) 07/05/2020 1:06 PM CDT Body Mass Index 44.4 07/05/2020 1:06 PM CDT documented in this encounter Progress Notes * Stevenson Penaloza MD - 07/05/2020 1:00 PM CDT Peg Son is a pleasant 69 y.o.female. Peg is a very pleasant lady who comes in because of an elevated creatinine. No new urinary issues. Avoiding excess meat. The patient [...] above Urologic: Negative except as above BP 124/70 Pulse 72 Temp 97.1 ??F (36.2 ??C) Ht 5' 8 (1.727 m) Wt 292 lb (132 kg) BMI 44.40 kg/m?? BSA 2.52 m?? WDWN female in NAD Skin No [...] 2.52 Lab Results Component Value Date BUN 31 (H) 06/28/2020 CREATININE 2.72 (H) 06/28/2020 EGFRAA 20 (L) 06/28/2020 EGFRAA 21 (L) 02/24/2020 EGFRAA 20 (L) 11/12/2019 EGFR 17 (L) 06/28/2020 EGFR 18 (L) 02/24/2020 EGFR 17 (L) 11/12/2019 PROTCREATUR 185 (H) 06/28/2020 PROTCREATUR 0.185 (H) 06/28/2020 PROTCREATUR 159 02/24/2020 PROTCREATUR 0.159 02/24/2020 NA 138 06/28/2020 K 5.1 06/28/2020 CL 99 06/28/2020 CO2 33 (H) 06/28/2020 CA 9.6 06/28/2020 PHOSPHATE 3.7 06/28/2020 ALBUMIN 4.0 06/28/2020 GLUCOSE 146 (H) 06/28/2020 PTH 187 (H) 06/28/2020 VITD3 42 02/24/2020 WBC 6.1 06/28/2020 HGB 13.5 06/28/2020 PLT 205 06/28/2020 Radiology 07/14/2019 Renal U/S bilateral cortical thinning [...] Control Cholesterol PTH/Vit D PTH is high. Start calcitriol Low protein diet Avoid NSAIDs Stay well hydrated CO2 is okay Pt will call kidney [employer] people. Long discussion about modalities.. continue same dose of diuretics. She has some low back pain (below kidneys). See will she pcp about this. The patients BMI is too high. Try to lose weight. Consider seeing a shank piece tacker or PCP for help. She is thinking of [employer] discussed again how she should lose weight The patient had the pneumovax and the flu shot. Plan Lose weight Same meds Kidney smart Hep b vaccine. She got first two shots. RTC 4 months. Diagnoses and all orders for this visit: Chronic kidney disease, Stage V (CMS-HCC) - Renal Function Panel (RFP); Future - Total Protein w/ Creatinine, Urine, Random; Future - PTH Intact w/o Calcium, Serum; Future - CBC (includes Differential/Platelets); Future Body mass index is 44.4 kg/m??. Follow up plan to address BMI is high. . See above Assessment/Plan Diagnoses and all orders for this visit: Chronic kidney disease, Stage V (CMS-HCC) Body mass index is 44.4 kg/m??. Follow up plan to address BMI is too high. See above. documented in this encounter Plan of Treatment Not on file documented as of this encounter Procedures Procedure Name Priority Date/Time Associated Diagnosis Comments TOTAL PROTEIN W/ CREATININE, URINE, RANDOM Routine 10/26/2020 10:49 AM CDT Chronic kidney disease, Stage V (CMS-HCC) CBC (INCLUDES DIFFERENTIAL/PLATEL ETS) Routine 10/26/2020 10:49 AM CDT Chronic kidney disease, Stage V (CMS-HCC) RENAL FUNCTION PANEL (RFP) Routine 10/26/2020 10:49 AM CDT Chronic kidney disease, Stage V (CMS-HCC) PTH INTACT W/O CALCIUM, SERUM Routine 10/26/2020 10:49 AM CDT Chronic kidney disease, Stage V (CMS-HCC) documented in this encounter Results * CBC (includes Differential/Platelets) (10/26/2020 10:49 AM CDT) Leukocytes, Blood 9.6 3.8 - 10.8 Thousand/u L [facility] ([facility]) Erythrocytes (RBC) 4.44 3.80 - 5.10 Million/uL [facility] ([facility]) Hemoglobin (HGB) 13.9 11.7 - 15.5 g/dL [facility] ([facility]) Hematocrit (HCT) 42.0 35.0 - 45.0 % [facility] ([facility]) MCV 94.6 80.0 - 100.[address] [facility] ([facility]) MCH 31.3 27.0 - 33.[address] [facility] ([facility]) MCHC 33.1 32.0 - 36.0 g/dL [facility] ([facility]) Erythrocyte Distribution Width (RDW) 12.1 11.0 - 15.0 % [facility] ([facility]) Platelets, Blood 166 140 - 400 Thousand/u L [facility] ([facility]) Platelet mean volume, Blood 11.4 7.5 - 12.[address] [facility] ([facility]) Neutrophils, Blood 6,662 1,500 - 7,800 cells/uL [facility] ([facility]) Lymphocytes, Blood 1,910 850 - 3,900 cells/uL [facility] ([facility]) Monocytes, Blood 874 200 - 950 cells/uL [facility] ([facility]) Eosinophils, Blood 125 15 - 500 cells/uL [facility] ([facility]) Basophils, Blood 29 0 - 200 cells/uL [facility] ([facility]) Neutrophils/100 leukocytes, Blood 69.4 % [facility]) Lymphocytes/100 leukocytes, Blood 19.9 % [facility]) Monocytes/100 leukocytes, Blood 9.1 % [facility]) Eosinophils/100 leukocytes, Blood 1.3 % [facility]) Basophils/100 leukocytes, Blood 0.3 % [facility]) Blood 10/26/2020 10:4 9 AM CDT 10/26/2020 10:50 AM CDT Narrative Resulting Agency Comment Performing Organization Information: ?Site ID: CT ?Name: [facility] ?Address: [address] [place] [address], [place] [address] ?Director: Hal Arnold D.O., MPH Stevenson Penaloza MD LAB BLOOD ORDERABLES Performing Organization Address City/[facility]/ZIP Co de Phone Number [facility] ([facility]) * (ABNORMAL) PTH Intact w/o Calcium, Serum (10/26/2020 10:49 AM CDT) PTH, Intact, Serum/Plasma 168(H) 14 - 64 pg/mL [facility] ([facility]) Comment: Interpretive Guide ?Intact PTH ? Calcium ? ------- Normal Parathyroid ?Normal ? Normal Hypoparathyroidism ?Low or Low Normal ?Low Hyperparathyroidism ?? Primary ?Normal or High ? High ?? Secondary ?High ? Normal or Low ?? Tertiary ? High ? High Non-Parathyroid ?? Hypercalcemia ?Low or Low Normal ?High Blood 10/26/2020 10:4 9 AM CDT 10/26/2020 10:50 AM CDT Narrative Resulting Agency Comment Performing Organization Information: ?Site ID: CT ?Name: [facility] ?Address: [address] [address] ?Director: Hal Arnold D.O., MPH Stevenson Penaloza MD LAB BLOOD ORDERABLES Performing Organization Address City/[facility]/ZIP Co de Phone Number [facility] ([facility]) * Total Protein w/ Creatinine, Urine, Random (10/26/2020 10:49 AM CDT) Creatinine, Urine 123 20 - 275 mg/dL [facility] ([facility]) Protein/Creatin ine, Urine 106 21 - 161 mg/g creat [facility] ([facility]) Protein/Creatin ine, Urine 0.106 0.021 - 0.161 mg/mg creat [facility] ([facility]) Protein, Urine 13 5 - 24 mg/dL [facility] ([facility]) 10/26/2020 10:4 9 AM CDT 10/26/2020 10:50 AM CDT Narrative Resulting Agency Comment Performing Organization Information: ?Site ID: CT ?Name: [facility] ?Address: [address] [place] [address] [place] [address] ?Director: Hal Arnold D.O., MPH Stevenson Penaloza MD LAB URINE ORDERABLES [facility] (ST) * (ABNORMAL) Renal Function Panel (RFP) (10/26/2020 10:49 AM CDT) Pathologist [facility] Glucose, Serum/Plasma 98 65 - 99 mg/dL [facility] (ST) Comment: ? Fasting reference interval Urea nitrogen, Serum/Plasma (BUN) 29(H) 7 - 25 mg/dL [facility] ([facility]) Creatinine, Serum/Plasma 3.08(H) 0.60 - 0.93 mg/dL [facility] (ST) Comment: For patients >49 years of age, the reference limit for Creatinine is approximately 13% higher for people identified as -Mauritian. eGFR, non 15(L) > OR = 60 mL/min/1. 73m2 [facility] (ST) eGFR, 17(L) > OR = 60 mL/min/1. 73m2 [facility] [place] ([facility]) Urea nitrogen/Creatinin e, Serum/Plasma 9 6 - 22 (calc) [facility] ([facility]) Sodium, Serum/Plasma 138 135 - 146 mmol/L [facility] ([facility]) Potassium, Serum/Plasma 4.9 3.5 - 5.3 mmol/L [facility] ([facility]) Chloride, Serum/Plasma 98 98 - 110 mmol/L [facility] ([facility]) Carbon dioxide CO2), total, Serum/Plasma 32 20 - 32 mmol/L [facility] ([facility]) Calcium, Serum/Plasma 9.5 8.6 - 10.4 mg/dL [facility] ([facility]) Phosphate, Serum/Plasma 4.3 2.1 - 4.3 mg/dL [facility] ([facility]) Albumin, Serum/Plasma 3.9 3.6 - 5.1 g/dL [facility] ([facility]) Blood 10/26/2020 10:4 9 AM CDT 10/26/2020 10:50 AM CDT Narrative Resulting Agency Comment Performing Organization Information: ?Site ID: CT ?Name: [facility] ?Address: [address] [place] [id number] ?Director: Hal Arnold D.O., MPH Stevenson Penaloza MD LAB BLOOD ORDERABLES [facility] ([facility]) documented in this encounter Visit Diagnoses Diagnosis Chronic kidney disease, Stage V (CMS-HCC)- Primary Chronic kidney disease, Stage V documented in this encounter Care Teams Dry Transfer Man Relationship Specialty Start Date End Date Gaudencio Miranda MD [address] [place] [address] PCP - General Internal Medicine 01/14/19 documented as of this encounter
--- OUTSIDE RECORDS SUMMARY | 2024-03-07 14:16 | XMS_ITS | Clinical Summary ---
Author Organization [facility] Address [address] [place] [address] Phone Care Team Providers Care Sales Floor Manager Name Role Phone Gaudencio Miranda MD Primary Care Provider [phone] Allergies Active Allergy Reactions Criticality Noted Date Comments Aspirin Anaphylaxis High 01/30/2012 Peanut (Diagnostic) Unknown 02/22/2021 Sulfa Antibiotics Hives High 05/19/2019 Reaction: Hives, Medications Medication Sig Dispensed Refills Start Date End Date Status DULoxetine (CYMBALTA) [address] capsule TK ONE C PO ONCE A DAY 02/20/2019 Active HYDROcodone-acetamin ophen (NORCO) 5-325 MG per tablet TK 1 T PO Q 6 H PRN 05/02/2019 Active levothyroxine (SYNTHROID, LEVOTHROID) 200 MCG tablet TK 1 T PO QD IN THE MORNING OES 03/07/2019 Active pregabalin (LYRICA) 200 MG capsule TK 1 C PO BID 04/18/2019 Active spironolactone (ALDACTONE) 50 MG tablet TK 1 T PO QD 03/18/2019 Active Cholecalciferol (VITAMIN D3) 50 MCG (1999) tablet Take by mouth Activ e Multiple Vitamin (MULTIVITAMIN) capsule Take 1 capsule by mouth 1 (one) time each day Active propranolol (INDERAL) 60 MG tablet Take 60 mg by mouth 2 (two) times a day Active furosemide (LASIX) 40 MG tablet Take 40 mg by mouth 1 (one) time each day Active calcitriol (ROCALTROL) 0.25 MCG capsule Take 1 capsule (0.25 mcg total) by mouth every other day 15 capsule 11 03/01/2020 Active albuterol HFA (PROVENTIL HFA) 108 (90 Base) MCG/ACT inhaler INHALE 2 PUFFS BY MOUTH EVERY 4 HOURS NEEDED FOR WHEEZING 02/27/2021 Active Wixela Inhub 250-50 MCG/DOSE diskus inhaler INHALE 1 PUFF BY MOUTH TWICE DAILY. RINSE MOUTH WITH WATER AFTER USE. DO NOT SWALLOW 02/27/2021 Active rosuvastatin (CRESTOR) 20 MG tablet Take 20 mg by mouth 1 (one) time each day 07/13/2021 Active famotidine (PEPCID) 10 MG tablet Take 10 mg by mouth 2 times daily Active primidone (MYSOLINE) 50 MG tablet Take 1 tablet (50 mg total) by mouth 2 (two) times a day 08/03/2021 Active Active Problems Problem Noted Date Diagnosed Date Chronic kidney disease, Stage V 05/19/2019 Cirrhosis of liver 06/28/2016 Hypothyroidism 09/04/2013 Immunizations Name Administration Dates Next Due Fluzone High-Dose 12/02/2019 Hepatitis B 04/26/2020,03/01/2020 Influenza (IM) Preservative Free 03/19/2016 Influenza Split High Dose Pr eservative Free IM 12/02/2019,01/07/2019,12/20/2017,12/15,01/12/2014 Influenza TIV (IM) 11/17/2018 Influenza, Injectable, Quadr ivalent, Preservative Free 04/03/2015 Influenza, Unspecified 12/25/2020 Pneumococcal Conjugate 11/17/2016 Pneumococcal Conjugate 13-Valent 12/15/2016 Pneumococcal Polysaccharide 01/12/2014 Family History Medical History Relation Comments Kidney disease Neg Hx Social History Tobacco Use Types Packs/Day Years [...] Mass Index 44.85 08/03/2021 1:59 PM CDT Plan of Treatment Health Maintenance Due Date Last Done Comments Influenza Vaccine (#1) 2023 , 11/17/2018, 03/19/2016, Additional history exists Pneumococcal PPSV23/PCV13 65 + Years / High and Highest Risk Completed 12/15/2016, 01/12/2014 Care Teams Sales Floor Manager Relationship Specialty Start Date End Date Gaudencio Miranda MD [address] [place] [id number] PCP - General Internal Medicine 01/14/19
--- OUTSIDE RECORDS SUMMARY | 2024-03-07 14:16 | XMS_ITS | Encounter Summary ---
Author Organization [facility] Address [address], [place] [address] Phone Care Team Providers Care Geriatric Care Manager Name Role Phone Gaudencio Miranda MD Primary Care Provider Encounter Details Date Type Department Care Team (Late st Contact Info) Description 07/07/2019 11:00 AM CDT Office Visit [facility] Nephrology and Hypertension [address] [place] [address], [address] [place] [address] Stevenson Penaloza MD [address] [facility], [address] [place] [address] Chronic kidney disease, Stage V (CMS-HCC) (Primary [...] Sign Reading Time Taken Comments Blood Pressure 128/72 07/07/2019 10:47 AM CDT Pulse 84 07/07/2019 10:47 AM CDT Temperature 35.8 ??C (96.5 ??F) 07/07/2019 10:47 AM C DT Respiratory Rate - - Oxygen Saturation - - Inhaled Oxygen Concentration - - Weight 135 kg (297 lb) 07/07/2019 10:47 AM CDT Height 172.7 cm (5' 8 ) 07/07/2019 10:47 AM CDT Body Mass Index 45.16 07/07/2019 10:47 AM CDT documented in this encounter Progress Notes * Stevenson Penaloza MD - 07/07/2019 11:00 AM CDT Peg Son is a pleasant 68 y.o.female. Peg is a very pleasant lady who comes in because of an elevated creatinine. No urinary issues Avoiding excess meat I called several times and then wrote a letter. 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 She has never had anything to drink and doesn???t think she has any viral issues. She???s had the cirrhosis for four or five years. The symptoms are ascites and edema. Last paracentesis was 4 years ago. The patient has fibromyalgia. The patient has [...] above Urologic: Negative except as above BP 128/72 Pulse 84 Temp 96.5 ??F (35.8 ??C) Ht 5' 8 (1.727 m) Wt 297 lb (135 kg) BMI 45.16 kg/m?? BSA 2.54 m?? WDWN female in NAD Skin No rash Head NCAT Neck No nodes, No TMG Lungs Clear to Auscultation Cor RRR no rub or gallop Abd BS+ nontender and soft. Ext 1-2+ edema, Psyche normal not depressed or anxious Recent Labs: 12/21/17 Cr 1.46, gfr 36 07/11/18 Cr 3.22, , gfr 14, vit d 50, TSH 0.06 01/07/19 Cr 3.45, gfr 13, Chol 66/42/150, 05/19/2019 Upro 162, UA 10-20W, Vit d 47 K/L 2.28, S+UIfx neg, ESR 45, EMA neg, C' nl, Hep c neg Lab Results Component Value Date EGFR 17 (L) 05/19/2019 CREATININE 2.69 (H) 05/19/2019 CREATININEUR 74 05/19/2019 GLUCOSE 86 05/19/2019 PTH 127 (H) 05/19/2019 BUN 27 (H) 05/19/2019 NA 140 05/19/2019 K 4.5 05/19/2019 CL 100 05/19/2019 CO2 30 05/19/2019 ALBUMIN 4.0 05/19/2019 CA 9.7 05/19/2019 Radiology Never got the renal ultrasound Impression: Peg has an elevated creatinine. Her GFR worsened early in 2018. It stayed stable since then. Serology is negative. K/L is mildly high but this is common in ckd. Repeat next visit ua was benign except for wbcs. I called several times and then wrote a letter to repeat. She did not repeat. To preserve renal function: Use KAPIL/ARB gfr too low Control bp thisi is good Control Cholesterol Check PTH/Vit D Low protein diet Avoid NSAIDs Stay well hydrated We discussed again that the diuretics are two edge sword. Higher doses can improve the edema but worsen the kidneys. Lower doses do the opposite. Too much swelling leads to stretching of the skin andultimately blistering and cellulitis. She has a small amount of swelling which isn't bothering her too much, so perhaps she is in a good place. She is in a good place with diuretics. If we cut back nmore I fear she may develop wosened ascites and/or blistering and cellulitis The patients BMI is too high. Try to lose weight. Consider seeing a supervisor plastic sheets or PCP for help. She is thinking of nutrasystems The patient had the pneumovax and the flu shot. Plan Go ahead and get the ultrasound Lose weight Same meds RTC 4 months Assessment/Plan Diagnoses and all orders for this visit: Chronic kidney disease, Stage V ([facility]-H[facility]) Body mass index is 45.16 kg/m??. Follow up plan to address BMI is too high. See above. documented in this encounter Plan of Treatment Not on file documented as of this encounter Visit Diagnoses Diagnosis Chronic kidney disease, Stage V ([facility]-HCC)- Primary Chronic kidney disease, Stage V documented in this encounter Care Teams Geriatric Care Manager Relationship Specialty Start Date End Date Gaudencio Miranda MD [address] [place] [id number] PCP - General Internal Medicine 01/14/19 documented as of this encounter
--- OUTSIDE RECORDS SUMMARY | 2024-03-07 14:16 | XMS_ITS | Encounter Summary ---
Author Organization [facility] Address [address], [place] [address] Phone Care Team Providers Care Frame Hand Name Role Phone Gaudencio Miranda MD Primary Care Provider Encounter Details Date Type Department Care Team (Late st Contact Info) Description 03/01/2020 10:30 AM REGIONAL EDUCATION COORDINATOR Office Visit [facility] Nephrology and Hypertension [address] [place] [address], [address] [place] [address] Stevenson Penaloza MD [address] [facility], [address] [place] [address] Chronic kidney disease, Stage V (CMS-HCC) (Primary [...] Sign Reading Time Taken Comments Blood Pressure 118/70 03/01/2020 10:29 AM REGIONAL EDUCATION COORDINATOR Pulse 84 03/01/2020 10:29 AM REGIONAL EDUCATION COORDINATOR Temperature 35.3 ??C (95.5 ??F) 03/01/2020 10:[address] Respiratory Rate - - Oxygen Saturation - - Inhaled Oxygen Concentration - - Weight 130 kg (286 lb) 03/01/2020 10:29 AM REGIONAL EDUCATION COORDINATOR Height 172.7 cm (5' 8 ) 03/01/2020 10:29 AM REGIONAL EDUCATION COORDINATOR Body Mass Index 43.49 03/01/2020 10:29 AM REGIONAL EDUCATION COORDINATOR documented in this encounter Progress Notes * Stevenson Penaloza MD - 03/01/2020 10:30 AM CST Peg Son is a pleasant 69 y.o.female. Peg is a very pleasant lady who comes in because of an elevated creatinine. No urinary issues. Dribbles at times. Avoiding excess meat. 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 No new issues. The patient has fibromyalgia. She now says [...] above Urologic: Negative except as above BP 118/70 Pulse 84 Temp 95.5 ??F (35.3 ??C) Ht 5' 8 (1.727 m) Wt 286 lb (130 kg) BMI 43.49 kg/m?? BSA 2.5 m?? WDWN female in NAD Skin No [...] 2.52 Lab Results Component Value Date BUN 24 02/24/2020 CREATININE 2.53 (H) 02/24/2020 EGFRAA 21 (L) 02/24/2020 EGFRAA 20 (L) 11/12/2019 EGFRAA 20 (L) 05/19/2019 EGFR 18 (L) 02/24/2020 EGFR 17 (L) 11/12/2019 EGFR 17 (L) 05/19/2019 PROTCREATUR 159 02/24/2020 PROTCREATUR 0.159 02/24/2020 PROTCREATUR 162 (H) 05/19/2019 PROTCREATUR 0.162 (H) 05/19/2019 NA 143 02/24/2020 K 4.3 02/24/2020 CL 100 02/24/2020 CO2 36 (H) 02/24/2020 CA 9.4 02/24/2020 PHOSPHATE 4.3 02/24/2020 ALBUMIN 4.0 02/24/2020 GLUCOSE 89 02/24/2020 PTH 275 (H) 02/24/2020 VITD3 42 02/24/2020 WBC 6.7 02/24/2020 HGB 13.0 02/24/2020 PLT 219 02/24/2020 Radiology 07/14/2019 Renal U/S bilateral cortical [...] NSAIDs Stay well hydrated CO2 is okay She was referred to [facility] in June but covid prevented her from going. Will retry this. continue same dose of diuretics. She has some low back pain (below kidneys). See will she pcp about this. The patients BMI is too high. Try to lose weight. Consider seeing a building cleaner or PCP for help. She is thinking of [employer] discussed again how she should lose weight The patient had the pneumovax and the flu shot. Plan Lose weight Same meds Kidney smart Hep b vaccine RTC 4 months Assessment/Plan Diagnoses and all orders for this visit: Chronic kidney disease, Stage V ([facility]-HCC) Body mass index is 43.49 kg/m??. Follow up plan to address BMI is too high. See above. documented in this encounter Plan of Treatment Not on file documented as of this encounter Procedures Procedure Name Priority Date/Time Associated Diagnosis Comments TOTAL PROTEIN W/ CREATININE, URINE, RANDOM Routine 06/28/2020 1:38 PM CDT Chronic kidney disease, Stage V (CMS-HCC) CBC (INCLUDES DIFFERENTIAL/PLATEL ETS) Routine 06/28/2020 1:38 PM CDT Chronic kidney disease, Stage V (CMS-HCC) RENAL FUNCTION PANEL (RFP) Routine 06/28/2020 1:38 PM CDT Chronic kidney disease, Stage V (CMS-HCC) PTH INTACT W/O CALCIUM, SERUM Routine 06/28/2020 1:38 PM CDT Chronic kidney disease, Stage V (CMS-HCC) documented in this encounter Results * (ABNORMAL) Total Protein w/ Creatinine, Urine, Random (06/28/2020 1:38 PM CDT) Creatinine, Urine 81 20 - 275 mg/dL [facility] ([facility]) Protein/Creati nine, Urine 185(H) 21 - 161 mg/g creat [facility] ([facility]) Protein/Creati nine, Urine 0.185(H) 0.021 - 0.161 mg/mg creat [facility] ([facility]) Protein, Urine 15 5 - 24 mg/dL [facility] ([facility]) 06/28/2020 1:38 PM CDT 06/28/2020 1:39 PM CDT Narrative Resulting Agency Comment Performing Organization Information: ?Site ID: [place] ?Name: [facility] ?Address: [address] [id number] ?Director: Hal Arnold D.O., MPH Stevenson Penaloza MD LAB URINE ORDERABLES [facility] * (ABNORMAL) Renal Function Panel (RFP) (06/28/2020 1:38 PM CDT) Glucose, Serum/Plasma 146(H) 65 - 99 mg/dL [facility] ([facility]) Comment: ? Fasting reference interval For someone without known diabetes, a glucose value >125 mg/dL indicates that they may have diabetes and this should be confirmed with a follow-up test. Urea nitrogen, Serum/Plasma (BUN) 31(H) 7 - 25 mg/dL [facility] ([facility]) Creatinine, Serum/Plasma 2.72(H) 0.60 - 0.93 mg/dL [facility] ([facility]) Comment: For patients >49 years of age, the reference limit for Creatinine is approximately 13% higher for people identified as -[place]. eGFR, non 17(L) > OR = 60 mL/min/1. 73m2 [facility] ([facility]) eGFR, 20(L) > OR = 60 mL/min/1. 73m2 [facility] ([facility]) Urea nitrogen/Creatinin e, Serum/Plasma 11 6 - 22 (calc) [facility] ([facility]) Sodium, Serum/Plasma 138 135 - 146 mmol/L [facility] ([facility]) Potassium, Serum/Plasma 5.1 3.5 - 5.3 mmol/L [facility] [place] ([facility]) Chloride, Serum/Plasma 99 98 - 110 mmol/L [facility] [place] ([facility]) Carbon dioxide CO2), total, Serum/Plasma 33(H) 20 - 32 mmol/L [facility] [place] ([facility]) Calcium, Serum/Plasma 9.6 8.6 - 10.4 mg/dL [facility] [place] ([facility]) Phosphate, Serum/Plasma 3.7 2.1 - 4.3 mg/dL [facility] ([facility]) Albumin, Serum/Plasma 4.0 3.6 - 5.1 g/dL [facility] ([facility]) Blood 06/28/2020 1:38 PM CDT 06/28/2020 1:39 PM CDT Narrative Resulting Agency Comment Performing Organization Information: ?Site ID: [place] ?Name: [employer] ?Address: [address] [address] ?Director: Hal Arnold D.O., MPH Stevenson Penaloza MD LAB BLOOD ORDERABLES [facility] ([facility]) * (ABNORMAL) PTH Intact w/o Calcium, Serum (06/28/2020 1:38 PM CDT) PTH, Intact, Serum/Plasma 187(H) 14 - 64 pg/mL [facility] ([facility]) Comment: Interpretive Guide ?Intact PTH ? Calcium ? ------- Normal Parathyroid ?Normal ? Normal Hypoparathyroidism ?Low or Low Normal ?Low Hyperparathyroidism ?? Primary ?Normal or High ? High ?? Secondary ?High ? Normal or Low ?? Tertiary ? High ? High Non-Parathyroid ?? Hypercalcemia ?Low or Low Normal ?High Blood 06/28/2020 1:38 PM CDT 06/28/2020 1:39 PM CDT Narrative Resulting Agency Comment Performing Organization Information: ?Site ID: [place] ?Name: [facility] ?Address: [address] [address] ?Director: Hal Arnold D.O., MPH Stevenson Penaloza MD LAB BLOOD ORDERABLES [facility] ([facility]) * CBC (includes Differential/Platelets) (06/28/2020 1:38 PM CDT) Leukocytes, Blood 6.1 3.8 - 10.8 Thousand/u L [facility] ([facility]) Erythrocytes (RBC) 4.38 3.80 - 5.10 Million/uL [facility] ([facility]) Hemoglobin (HGB) 13.5 11.7 - 15.5 g/dL [facility] ([facility]) Hematocrit (HCT) 41.5 35.0 - 45.0 % [facility] ([facility]) MCV 94.7 80.0 - 100.[address] [facility] ([facility]) MCH 30.8 27.0 - 33.[address] [facility] ([facility]) MCHC 32.5 32.0 - 36.0 g/dL [facility]) Erythrocyte Distribution Width (RDW) 12.6 11.0 - 15.0 % [facility] ([facility]) Platelets, Blood 205 140 - 400 Thousand/u L [facility] ([facility]) Platelet mean volume, Blood 11.1 7.5 - 12.[address] [facility] ([facility]) Neutrophils, Blood 3,337 1,500 - 7,800 cells/uL [facility] ([facility]) Lymphocytes, Blood 1,958 850 - 3,900 cells/uL [facility] ([facility]) Monocytes, Blood 525 200 - 950 cells/uL [facility]) Eosinophils, Blood 220 15 - 500 cells/uL [facility]) Basophils, Blood 61 0 - 200 cells/uL [facility] ([facility]) Neutrophils/100 leukocytes, Blood 54.7 % [facility]) Lymphocytes/100 leukocytes, Blood 32.1 % [facility]) Monocytes/100 leukocytes, Blood 8.6 % [facility]) Eosinophils/100 leukocytes, Blood 3.6 % [facility]) Basophils/100 leukocytes, Blood 1.0 % [facility]) Blood 06/28/2020 1:38 PM CDT 06/28/2020 1:39 PM CDT Narrative Resulting Agency Comment Performing Organization Information: ?Site ID: [place] ?Name: [facility] ?Address: [address] [place] [id number] ?Director: Hal Arnold D.O., MPH Stevenson Penaloza MD LAB BLOOD ORDERABLES [facility] ([facility]) documented in this encounter Visit Diagnoses Diagnosis Chronic kidney disease, Stage V ([facility]-HCC)- Primary Chronic kidney disease, Stage V documented in this encounter Care Teams Frame Hand Relationship Specialty Start Date End Date Gaudencio Miranda MD [address] [place] [address] PCP - General Internal Medicine 01/14/19 documented as of this encounter
--- OUTSIDE RECORDS SUMMARY | 2024-03-07 14:16 | XMS_ITS | Encounter Summary ---
Author Organization [facility] Address [address] [place] [address] Phone Care Team Providers Care Trimming Press Operator Name Role Phone Gaudencio Miranda MD Primary Care Provider [phone] Encounter Details Date Type Department Care Team (Late st Contact Info) Description 03/03/2021 Telephone [facility] Nephrology and Hypertension [address] [facility], [address] [place] [address] Therese Velez MA Social History Tobacco Use Types Packs/Day [...] encounter Miscellaneous Notes * Telephone Encounter - Therese Velez MA - 03/03/2021 9:28 AM CST Please [facility] at [facility], pt going today. documented in this encounter Plan of Treatment Not on file documented as of this encounter Procedures Procedure Name Priority Date/Time Associated Diagnosis Comments TOTAL PROTEIN W/ CREATININE, URINE, RANDOM Routine 03/03/2021 12:18 PM STILL OPERATOR GIN Chronic kidney disease, Stage V (CMS-HCC) CBC (INCLUDES DIFFERENTIAL/PLATEL ETS) Routine 03/03/2021 12:18 PM STILL OPERATOR GIN Chronic kidney disease, Stage V (CMS-HCC) RENAL FUNCTION PANEL (RFP) Routine 03/03/2021 12:18 PM STILL OPERATOR GIN Chronic kidney disease, Stage V (CMS-HCC) PTH INTACT W/O CALCIUM, SERUM Routine 03/03/2021 12:18 PM STILL OPERATOR GIN Chronic kidney disease, Stage V (CMS-HCC) documented in this encounter Results * Total Protein w/ Creatinine, Urine, Random (03/03/2021 12:18 PM STILL OPERATOR GIN) Creatinine, Urine 46 20 - 275 mg/dL [facility]) Protein/Creatin ine, Urine 130 21 - 161 mg/g creat [facility]) Protein/Creatin ine, Urine 0.130 0.021 - 0.161 mg/mg creat [facility]) Protein, Urine 6 5 - 24 mg/dL [facility]) 03/03/2021 12:1 8 PM STILL OPERATOR GIN 03/03/2021 12:20 PM STILL OPERATOR GIN Narrative Resulting Agency Comment Performing Organization Information: ?Site ID: [place] ?Name: [employer] ?Address: [address] [place] [id number] ?Director: Hal Arnold D.O., MPH Stevenson Penaloza MD LAB URINE ORDERABLES [facility]) * (ABNORMAL) Renal Function Panel (RFP) (03/03/2021 12:18 PM STILL OPERATOR GIN) Glucose, Serum/Plasma 135(H) 65 - 99 mg/dL [facility] ([facility]) Comment: ? Fasting reference interval For someone without known diabetes, a glucose value >125 mg/dL indicates that they may have diabetes and this should be confirmed with a follow-up test. Urea nitrogen, Serum/Plasma (BUN) 38(H) 7 - 25 mg/dL [facility]) Creatinine, Serum/Plasma 2.14(H) 0.60 - 0.93 mg/dL [facility]) Comment: For patients >49 years of age, the reference limit for Creatinine is approximately 13% higher for people identified as -[place]. eGFR, non 22(L) > OR = 60 mL/min/1. 73m2 [facility]) eGFR, 26(L) > OR = 60 mL/min/1. 73m2 [facility]) Urea nitrogen/Creatinin e, Serum/Plasma 18 6 - 22 (calc) [facility]) Sodium, Serum/Plasma 141 135 - 146 mmol/L [facility]) Potassium, Serum/Plasma 3.8 3.5 - 5.3 mmol/L [facility]) Chloride, Serum/Plasma 97(L) 98 - 110 mmol/L [facility]) Carbon dioxide CO2), total, Serum/Plasma 36(H) 20 - 32 mmol/L [facility]) Calcium, Serum/Plasma 9.7 8.6 - 10.4 mg/dL [facility]) Phosphate, Serum/Plasma 3.4 2.1 - 4.3 mg/dL [facility]) Albumin, Serum/Plasma 3.9 3.6 - 5.1 g/dL [facility]) Blood 03/03/2021 12:1 8 PM STILL OPERATOR GIN 03/03/2021 12:20 PM STILL OPERATOR GIN Narrative Resulting Agency Comment Performing Organization Information: ?Site ID: [place] ?Name: [employer] ?Address: [address] [place] [address] ?Director: Hal Arnold D.O., MPH Stevenson Penaloza MD LAB BLOOD ORDERABLES Performing Organization Address [facility]/ZIP Co de Phone Number [facility] ([facility]) * (ABNORMAL) PTH Intact w/o Calcium, Serum (03/03/2021 12:18 PM STILL OPERATOR GIN) PTH, Intact, Serum/Plasma 109(H) 14 - 64 pg/mL [facility]) Comment: Interpretive Guide ?Intact PTH ? Calcium ? ------- Normal Parathyroid ?Normal ? Normal Hypoparathyroidism ?Low or Low Normal ?Low Hyperparathyroidism ?? Primary ?Normal or High ? High ?? Secondary ?High ? Normal or Low ?? Tertiary ? High ? High Non-Parathyroid ?? Hypercalcemia ?Low or Low Normal ?High Blood 03/03/2021 12:1 8 PM STILL OPERATOR GIN 03/03/2021 12:20 PM STILL OPERATOR GIN Narrative Resulting Agency Comment Performing Organization Information: ?Site ID: [place] ?Name: [employer] ?Address: [address] [address] ?Director: Hal Arnold D.O., MPH Stevenson Penaloza MD LAB BLOOD ORDERABLES Performing Organization Address [facility] Co de Phone Number [facility] ([facility]) * CBC (includes Differential/Platelets) (03/03/2021 12:18 PM STILL OPERATOR GIN) [facility] Leukocytes, Blood 5.9 3.8 - 10.8 Thousand/u L [facility] ([facility]) Erythrocytes (RBC) 4.16 3.80 - 5.10 Million/uL [facility]) Hemoglobin (HGB) 13.1 11.7 - 15.5 g/dL [facility]) Hematocrit (HCT) 39.0 35.0 - 45.0 % [facility]) MCV 93.8 80.0 - 100.[address] [facility]) MCH 31.5 27.0 - 33.[address] [facility]) MCHC 33.6 32.0 - 36.0 g/dL [facility]) Erythrocyte Distribution Width (RDW) 12.9 11.0 - 15.0 % [facility]) Platelets, Blood 165 140 - 400 Thousand/u L [facility]) Platelet mean volume, Blood 12.0 7.5 - 12.[address] [facility]) Neutrophils, Blood 2,985 1,500 - 7,800 cells/uL [facility]) Lymphocytes, Blood 1,853 850 - 3,900 cells/uL [facility]) Monocytes, Blood 755 200 - 950 cells/uL [facility]) Eosinophils, Blood 254 15 - 500 cells/uL [facility]) Basophils, Blood 53 0 - 200 cells/uL [facility]) Neutrophils/100 leukocytes, Blood 50.6 % [facility]) Lymphocytes/100 leukocytes, Blood 31.4 % [facility]) Monocytes/100 leukocytes, Blood 12.8 % [facility]) Eosinophils/100 leukocytes, Blood 4.3 % [facility]) Basophils/100 leukocytes, Blood 0.9 % [facility]) Blood 03/03/2021 12:1 8 PM STILL OPERATOR GIN 03/03/2021 12:20 PM STILL OPERATOR GIN Narrative Resulting Agency Comment Performing Organization Information: ?Site ID: [place] ?Name: [facility] ?Address: [address] [place] [id number] ?Director: Hal Arnold D.O., MPH Stevenson Penaloza MD LAB BLOOD ORDERABLES [facility]) documented in this encounter Visit Diagnoses Diagnosis Chronic kidney disease, Stage V (CMS-HCC)- Primary Chronic kidney disease, Stage V documented in this encounter Care Teams Trimming Press Operator Relationship Specialty Start Date End Date Gaudencio Miranda MD [address] [place] [address] PCP - General Internal Medicine 01/14/19 documented as of this encounter
--- OUTSIDE RECORDS SUMMARY | 2024-03-07 14:17 | XMS_ITS | Encounter Summary ---
Author Organization [facility]etta utions Address [address], [place] [address] Phone Care Team Providers Care Health Education Teacher Name Role Phone Gaudencio Miranda MD Primary Care Provider [phone] Encounter Details Date Type Department Care Team (Late st Contact Info) Description 05/19/2019 11:30 AM CHAIR AND COUCH MAKER Office Visit [facility] Nephrology and Hypertension [address] [place] [address], [address] [place] [address] Stevenson Penaloza MD [address], [address] [place] [address] Chronic kidney disease, Stage V (CMS-HCC) (Primary [...] Sign Reading Time Taken Comments Blood Pressure 134/70 05/22/2019 7:46 PM CHAIR AND COUCH MAKER Pulse 84 05/22/2019 7:46 PM CHAIR AND COUCH MAKER Temperature 36.7 ??C (98 ??F) 05/22/2019 7:46 PM CHAIR AND COUCH MAKER Respiratory Rate - - Oxygen Saturation - - Inhaled Oxygen Concentration - - Weight 128 kg (282 lb 3 oz) 05/22/2019 7:[address] Height 172.7 cm (5' 8 ) 05/22/2019 7:46 PM CHAIR AND COUCH MAKER Body Mass Index 42.91 05/22/2019 7:46 PM CHAIR AND COUCH MAKER documented in this encounter Progress Notes * Stevenson Penaloza MD - 05/19/2019 11:30 AM CST Peg Son is a pleasant 68 y.o.female. Peg is a very pleasant lady who comes in because of an elevated creatinine. She went to see Dr. Miranda for a routine visit and they did some blood work. Her creatinine was elevated so she came into see this office for a kidney evaluation and follow up. At the time of the visit the patient was feeling fine. There was no nausea, vomiting, diarrhea, fevers, chills, or other flu like illnesses. The patient has had no bloody urine, foamy urine, kidney stones, painful urination, or bladder infections. The patient is not taking any new medications or new over the counter meds. No NSAIDs reported. The patient???s creatinine has been elevated in the past year or more. Six months ago it had gottenworse and Dr. Miranda cut back on her diuretics. More recently the creatinine was redrawn and didn???t improve so she was sent for kidney evaluation. 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 She has never had anything to drink and doesn???t think she has any viral issues. She???s had the cirrhosis for four or five years. The symptoms are ascites and edema. Consequently she is on large doses of diuretics:, furosemide and Spironolactone. She has not had any bleeding or encephalopathy that she knows of. The patient has fibromyalgia. The patient has snoring symptoms. She is going to talk with Dr. Miranda about getting a sleep test. Past history: societies, swelling, cirrhosis, fibromyalgia, snoring symptoms. ROS Constitutional: Negative except as above Neuro: Negative except as above ENT: Negative except as above Endocrine: Negative except as above Psychiatric: Negative except as above Pulmonary: Negative except as above Cardiac: Negative except as above Abdomen: Negative except as above Urologic: Negative except as above Skin: Negative except as above Rheumatologic: Negative except as above Allergies Allergen Reactions ??? Aspirin Anaphylaxis ??? Sulfa Antibiotics Hives Reaction: Hives, Social History Tobacco Use ??? Smoking status: Former Smoker ??? Smokeless tobacco: Never Used Substance Use Topics ??? Alcohol use: Never Frequency: Never ??? Drug use: Not on file BP 134/70 Pulse 84 Temp 98 ??F (36.7 ??C) Ht 5' 8 (1.727 m) Wt 282 lb 3 oz (128 kg) BMI 42.91 kg/m?? BSA 2.48 m?? WDWN female in NAD Skin No rash Head NCAT Mouth Normal Lips, Gums, and Teeth Neck No nodes, No TMG Back No CVAT Lungs Clear to Auscultation and Percussion Cor: RRR no rub or gallop Abd BS+ nontender and soft. No HSM no masses no bruits Ext No edema, cyanosis, or clubbing Pulses normal radial and dorsalis pedis Psyche normal not depressed or anxious Neuro A+Ox3 Motor 07/21 all groups Cr Ns 2-12 intact Cb normal RENE Recent Labs: 12/21/17 Cr 1.46, gfr 36 07/11/18 Cr 3.22, , gfr 14, vit d 50, TSH 0.06 01/07/19 Cr 3.45, gfr 13, Chol 66/42/150, Lab Results Component Value Date EGFR 17 (L) 05/19/2019 CREATININE 2.69 (H) 05/19/2019 CREATININEUR 74 05/19/2019 GLUCOSE 86 05/19/2019 PTH 127 (H) 05/19/2019 BUN 27 (H) 05/19/2019 NA 140 05/19/2019 K 4.5 05/19/2019 CL 100 05/19/2019 CO2 30 05/19/2019 ALBUMIN 4.0 05/19/2019 CA 9.7 05/19/2019 Impression: Peg has an elevated creatinine. Her GFR worsened early in 2018. It stayed stable since then. She might have parenchymal kidney disease. This might be from vascular disease or some idiopathic glomerulosclerosis. She could have chronic prerenal azotemia from the diuretics. I would???ve expected her creatinine to improve after her diuretics were cut back however. She makes plenty of urine, so I don???t think she has hepato-renal syndrome. The patient doesn???t take any medications that would worsen the kidneys except of course for the diuretics. We discussed that the diuretics are two edge sword. Higher doses can improve the edema but worsen the kidneys. Lower doses do the opposite. Too much swelling leads to stretching of the skin and ultimately blistering and cellulitis. She has a small amount of swelling which isn't bothering her too much, so perhaps she is in a good place. There are other things that cause kidney disease as well, including glomerulonephritis, interstitial nephritis, obstruction, infiltration, stone disease, or cystic disease. These are unlikely becausethe patient has no sign or symptoms of any of these. To evaluate this I am going to get a renal panel, urinalysis, urine protein to creatinine ratio, EMA, ESR, complements, serum and urine immunofixation, kappa lambda ratio, and a renal ultrasound. We discussed ways to preserve renal function. We discussed the potential benefits of KAPIL inhibitors and ARBs. The systolic blood pressure should be less than 140. The LDL cholesterol should be less than 100. We will check a PTH and vitamin D level to be sure these are in line. We discussed that the patient should stay off large amounts of protein in the diet. Try to stick toabout 7 ounces of chicken, fish, beef or pork per day. The patient should avoid nonsteroidal antiinflammatory agents. The patient should stay well hydrated. If all the tests come back okay then consider reducing the diuretics watching the edema closely. The patients BMI is too high. Try to lose weight. Consider seeing a mushroom grower or PCP for help. The patient had the pneumovax and the flu shot. The patient will work on the diet and get the testing done. Followup in a few weeks for further evaluation. Assessment/Plan Diagnoses and all orders for this visit: Chronic kidney disease, Stage V ([facility]-HCC) - Antinuclear Antibodies (EMA), IFA w/ Refl Titer and Pattern; Future - Complement C3 + C4; Future - Complement Total (CH50); Future - [place] and Lambda Free Light Chains, Qn, Serum; Future - Hepatitis C Virus (HCV) AB, Serum; Future - Immunofixation, Serum; Future - Protein Electrophoresis with Immunofixation, Urine, 24 Hour; Future - PTH Intact w/o Calcium, Serum; Future - Renal Function Panel (RFP); Future - Erythrocyte Sedimentation Rate (ESR); Future - Total Protein w/ Creatinine, Urine, Random; Future - Ultrasound renal; Future - Urinalysis w/ Reflex to Microscopic; Future - Vitamin D, 25-Hydroxy, Serum; Future - Sodium w/ Creatinine, Urine, Random; Future Body mass index is 42.91 kg/m??. Follow up plan to address BMI is too high. See above. [facility] documented in this encounter Plan of Treatment Scheduled Orders Name Type Priority Associated Diagnoses Orde r Schedule Sodium w/ Creatinine, Urine, Random Lab Routine Chronic kidney disease, Stage V (CMS-HCC) 1 Occurrences starting 05/19/2019 until 05/18/2020 documented as of this encounter Procedures Procedure Name Priority Date/Time Associated Diagnosis Comments PROTEIN ELECTROPHORESIS WITH IMMUNOFIXATION, URINE, 24 HOUR Routine 05/26/2019 8:33 AM CDT Chronic kidney disease, Stage V (CMS-HCC) HEPATITIS C VIRUS (HCV) AB, SERUM Routine 05/19/2019 11:25 AM CHAIR AND COUCH MAKER Chronic kidney disease, Stage V (CMS-HCC) KAPPA/LAMBDA FREE LIGHT CHAINS, QN, SERUM Routine 05/19/2019 11:25 AM CHAIR AND COUCH MAKER Chronic kidney disease, Stage V (CMS-HCC) TOTAL PROTEIN W/ CREATININE, URINE, RANDOM Routine 05/19/2019 11:25 AM CHAIR AND COUCH MAKER Chronic kidney disease, Stage V (CMS-HCC) VITAMIN D, 25-HYDROXY, SERUM Routine 05/19/2019 11:25 AM CHAIR AND COUCH MAKER Chronic kidney disease, Stage V (CMS-HCC) RENAL FUNCTION PANEL (RFP) Routine 05/19/2019 11:25 AM CHAIR AND COUCH MAKER Chronic kidney disease, Stage V (CMS-HCC) URINALYSIS W/ REFLEX TO MICROSCOPIC Routine 05/19/2019 11:25 AM CHAIR AND COUCH MAKER Chronic kidney disease, Stage V (CMS-HCC) COMPLEMENT C3 + C4 Routine 05/19/2019 11 :25 AM CHAIR AND COUCH MAKER Chronic kidney disease, Stage V (CMS-HCC) ERYTHROCYTE SEDIMENTATION RATE (ESR) Routine 05/19/2019 11:25 AM CHAIR AND COUCH MAKER Chronic kidney disease, Stage V (CMS-HCC) COMPLEMENT TOTAL (CH50) Routine 05/19/19 20 11:25 AM CHAIR AND COUCH MAKER Chronic kidney disease, Stage V (CMS-HCC) IMMUNOFIXATION, SERUM Routine 05/19/2019 11:25 AM CHAIR AND COUCH MAKER Chronic kidney disease, Stage V (CMS-[facility]) ANTINUCLEAR ANTIBODIES (EMA), IFA W/ REFL TITER AND PATTERN Routine 05/19/2019 11:25 AM CHAIR AND COUCH MAKER Chronic kidney disease, Stage V (CMS-HCC) PTH INTACT W/O CALCIUM, SERUM Routine 05/19/2019 11:25 AM CHAIR AND COUCH MAKER Chronic kidney disease, Stage V ([facility]) documented in this encounter Results * (ABNORMAL) Protein Electrophoresis with Immunofixation, Urine, 24 Hour (05/26/2019 8:33 AM CDT) Albumin/Protein, total 0 % [facility] ([facility]) Alpha 1 globulin/Protein, total 0 % [facility]) Alpha 2 globulin/Protein, total 0 % [facility]) Beta globulin/Protein, total 0 % [facility]) Gamma globulin/Protein, total 0 % [facility]) Protein, monoclonal, 24 hour Urine CANCELED NONE DETECTED mg/[address] [facility]) Comment:Result canceled by t he ancillary. Protein, monoclonal, 24 hour Urine CANCELED NONE DETECTED mg/[address] [facility]) Comment:Result canceled by t he ancillary. Protein, monoclonal, 24 hour Urine CANCELED NONE DETECTED mg/[address] [facility]) Comment:Result canceled by t he ancillary. Protein Fractions, Urine [facility]) Comment: Agarose electrophoresis of urine reveals that quantities of albumin and globulin fractions are below the level of detection by this method. No abnormal protein is observed. Immunofixation for Urine [facility] ([facility]) Comment: No monoclonal immunoglobulin detected. Creatinine, 24 hour Urine 1.20 0.50 - 2.15 g/[address] [facility]) Protein/Creatinine, 24 hour Urine 140(H) < OR = 114 mg/g creat [facility]) Protein/Creatinine, 24 hour Urine 0.140(H) < OR = 0.114 mg/mg creat [facility]) Protein, 24 hour Urine 168(H) <150 mg/24 h [facility] ([facility]) Urine 05/26/2019 8:33 AM CDT 05/26/2019 8:35 AM CDT Narrative [facility] ([facility]) - 05/27/2019 2:41 PM CDT SPLIT 05/19/2019 FROM [id number] URINE VOLUME: 2800/24 Resulting Agency Comment Performing Organization Information: ?Site ID: [place] ?Name: [facility] ?Address: [address] [place], [place] [address] [address] ?Director: Hal Arnold D.O., MPH Stevenson Penaloza MD LAB URINE ORDERABLES [facility] ([facility]) * Vitamin D, 25-Hydroxy, Serum (05/19/2019 11:25 AM CHAIR AND COUCH MAKER) Calcidiol, Serum/Plasma 47 30 - 100 ng/mL [facility] ([facility]) Comment: Vitamin D Status ? 25-OH Vitamin D: Deficiency: ?<20 ng/mL Insufficiency: ? 20 - 29 ng/mL Optimal: ? > or = 30 ng/mL For 25-OH Vitamin D testing on patients on D2-supplementation and patients for whom quantitation of D2 and D3 fractions is required, the QuestAssureD(TM) 25-OH VIT D, (D2,D3), LC/MS/MS is recommended: order code 22856 (patients >2yrs). For more information on this test, go to: http://education.[employer]/faq/XPV239 (This link is being provided for informational/educational purposes only.) 05/19/2019 11:2 5 AM CHAIR AND COUCH MAKER 05/19/2019 11:31 AM CHAIR AND COUCH MAKER Narrative [facility] ([facility]) - 05/22/2019 4:08 PM CHAIR AND COUCH MAKER COLLECTION KIT GIVEN TO PATIENT. PATIENT ADVISED TO RETURN. Resulting Agency Comment Performing Organization Information: ?Site ID: [place] ?Name: [facility] ?Address: [address] [place], [place] [address] [address] ?Director: aHl Arnold D.O., MPH Stevenson Penaloza MD LAB BLOOD ORDERABLES [facility] ([facility]) * (ABNORMAL) Urinalysis w/ Reflex to Microscopic (05/19/2019 11:25 AM CHAIR AND COUCH MAKER) Color of Urine YELLOW YELLOW [facility] ([facility]) Appearance of Urine CLOUDY(A) CLEAR [facility] ([facility]) Specific gravity of Urine 1.010 1.001 - 1.035 [facility] ([facility]) Leukocytes, Urine sediment 10-20(A) < OR = 5 /HPF [facility] ([facility]) Erythrocytes, Urine sediment 0-2 < OR = 2 /HPF [facility] ([facility]) Epithelial cells, squamous, Urine sediment 6-10(A) < OR = 5 /HPF [facility] ([facility]) Comment:Result canceled by t lamar ancillary. Yeast, Urine sediment CANCELED NONE SEEN /HPF [facility] ([facility]) Comment:Result canceled by t lamar ancillary. Service comment [facility]ED [facility]) Comment:Result canceled by t lamar ancillary. Service comment [facility]CELED [facility]) Comment:Result canceled by t lamar ancillary. Urine 05/19/2019 11:2 5 AM CHAIR AND COUCH MAKER 05/19/2019 11:31 AM CHAIR AND COUCH MAKER Narrative [facility] ([facility]) - 05/22/2019 4:08 PM CHAIR AND COUCH MAKER COLLECTION KIT GIVEN TO PATIENT. PATIENT ADVISED TO RETURN. Resulting Agency Comment Performing Organization Information: ?Site ID: [place] ?Name: [facility] ?Address: [address] [place] [address] [place] [address] ?Director: Hal Arnold D.O., MPH Stevenson Penaloza MD LAB URINE ORDERABLES [facility] ([facility]) * (ABNORMAL) Total Protein w/ Creatinine, Urine, Random (05/19/2019 11:25 AM CHAIR AND COUCH MAKER) Creatinine, Urine 74 20 - 275 mg/dL [facility] ([facility]) Protein/Creati nine, Urine 162(H) 21 - 161 mg/g creat [facility] ([facility]) Protein/Creati nine, Urine 0.162(H) 0.021 - 0.161 mg/mg creat [facility]) Protein, Urine 12 5 - 24 mg/dL [facility] ([facility]) 05/19/2019 11:2 5 AM CHAIR AND COUCH MAKER 05/19/2019 11:31 AM CHAIR AND COUCH MAKER Narrative [facility] ([facility]) - 05/22/2019 4:08 PM CHAIR AND COUCH MAKER COLLECTION KIT GIVEN TO PATIENT. PATIENT ADVISED TO RETURN. Resulting Agency Comment Performing Organization Information: ?Site ID: [place] ?Name: Gerda Brown ?Address: [facility] [place] [address] ?Director: Hal Arnold D.O., MPH Stevenson Penaloza MD LAB URINE ORDERABLES Performing Organization Address [facility] de Phone Number [facility] ([facility]) * (ABNORMAL) Erythrocyte Sedimentation Rate (ESR) (05/19/2019 11:25 AM CHAIR AND COUCH MAKER) Erythrocyte sedimentation rate (ESR) 45(H) < OR = 30 mm/h [facility] ([facility]) Blood 05/19/2019 11:2 5 AM CHAIR AND COUCH MAKER 05/19/2019 11:31 AM CHAIR AND COUCH MAKER Narrative [facility] ([facility]) - 05/22/2019 4:08 PM CHAIR AND COUCH MAKER COLLECTION KIT GIVEN TO PATIENT. PATIENT ADVISED TO RETURN. Resulting Agency Comment Performing Organization Information: ?Site ID: [place] ?Name: Gerda Brown ?Address: [facility] [place] [address] ?Director: Hal Arnold D.O., MPH Stevenson Penaloza MD LAB BLOOD ORDERABLES Performing Organization Address [facility] de Phone Number [facility] ([facility]) * (ABNORMAL) Renal Function Panel (RFP) (05/19/2019 11:25 AM CHAIR AND COUCH MAKER) Glucose, Serum/Plasma 86 65 - 99 mg/dL [facility] ([facility]) Comment: ? Fasting reference interval Urea nitrogen, Serum/Plasma (BUN) 27(H) 7 - 25 mg/dL [facility] ([facility]) Creatinine, Serum/Plasma 2.69(H) 0.60 - 0.93 mg/dL [facility] ([facility]) Comment: For patients >49 years of age, the reference limit for Creatinine is approximately 13% higher for people identified as -Tong[place]. eGFR, non 17(L) > OR = 60 mL/min/1. 73m2 [facility] ([facility]) eGFR, 20(L) > OR = 60 mL/min/1. 73m2 [facility] ([facility]) Urea nitrogen/Creatinin e, Serum/Plasma 10 6 - 22 (calc) [facility] ([facility]) Sodium, Serum/Plasma 140 135 - 146 mmol/L [facility] ([facility]) Potassium, Serum/Plasma 4.5 3.5 - 5.3 mmol/L [facility] ([facility]) Chloride, Serum/Plasma 100 98 - 110 mmol/L [facility] ([facility]) Carbon dioxide CO2), total, Serum/Plasma 30 20 - 32 mmol/L [facility] ([facility]) Calcium, Serum/Plasma 9.7 8.6 - 10.4 mg/dL [facility] ([facility]) Phosphate, Serum/Plasma 3.5 2.1 - 4.3 mg/dL [facility] ([facility]) Albumin, Serum/Plasma 4.0 3.6 - 5.1 g/dL [facility] ([facility]) Blood 05/19/2019 11:2 5 AM CHAIR AND COUCH MAKER 05/19/2019 11:31 AM CHAIR AND COUCH MAKER Narrative [facility] ([facility]) - 05/22/2019 4:08 PM CHAIR AND COUCH MAKER COLLECTION KIT GIVEN TO PATIENT. PATIENT ADVISED TO RETURN. Resulting Agency Comment Performing Organization Information: ?Site ID: [place] ?Name: [facility] ?Address: [facility] [place] [address] ?Director: Hal Arnold D.O., MPH Stevenson Penaloza MD LAB BLOOD ORDERABLES [facility] ([facility]) * (ABNORMAL) PTH Intact w/o Calcium, Serum (05/19/2019 11:25 AM CHAIR AND COUCH MAKER) PTH, Intact, Serum/Plasma 127(H) 14 - 64 pg/mL [facility] ([facility]) Comment: Interpretive Guide ?Intact PTH ? Calcium ? ------- Normal Parathyroid ?Normal ? Normal Hypoparathyroidism ?Low or Low Normal ?Low Hyperparathyroidism ?? Primary ?Normal or High ? High ?? Secondary ?High ? Normal or Low ?? Tertiary ? High ? High Non-Parathyroid ?? Hypercalcemia ?Low or Low Normal ?High Blood 05/19/2019 11:2 5 AM CHAIR AND COUCH MAKER 05/19/2019 11:31 AM CHAIR AND COUCH MAKER Narrative [facility] (ST) - 05/22/2019 4:08 PM CHAIR AND COUCH MAKER COLLECTION KIT GIVEN TO PATIENT. PATIENT ADVISED TO RETURN. Resulting Agency Comment Performing Organization Information: ?Site ID: [place] ?Name: [facility] ?Address: [address] [place] [address] ?Director: Hal Arnold D.O., MPH Stevenson Penaloza MD LAB BLOOD ORDERABLES [facility] ([facility]) * Immunofixation, Serum (05/19/2019 11:25 AM CHAIR AND COUCH MAKER) Pathologist [facility] Immunofixation for Serum/Plasma [facility] ([facility]) Comment: Normal pattern. No monoclonal proteins detected. Blood 05/19/2019 11:2 5 AM CHAIR AND COUCH MAKER 05/19/2019 11:31 AM CHAIR AND COUCH MAKER Narrative [facility] ([facility]) - 05/22/2019 4:08 PM CHAIR AND COUCH MAKER COLLECTION KIT GIVEN TO PATIENT. PATIENT ADVISED TO RETURN. Resulting Agency Comment Performing Organization Information: ?Site ID: [place] ?Name: [facility] ?Address: [address] [place] [address] ?Director: Hal Arnold D.O., MPH Stevenson Penaloza MD LAB URINE ORDERABLES Performing Organization Address [facility]/State/ZIP Co de Phone Number [facility] ([facility]) * Hepatitis C Virus (HCV) AB, Serum (05/19/2019 11:25 AM CHAIR AND COUCH MAKER) Pathologist [facility] Hepatitis C virus Ab, Serum from Donor Nonreactive Nonreactive [facility] ([facility]) Comment: This test is for eligibility determination of Donors of blood and blood components and human cells, tissues, and cellular and tissue based products (HCT/Ps). This test is not intended to be used for routine clinical or routine diagnostic evaluation. ? 05/19/2019 11:2 5 AM CHAIR AND COUCH MAKER 05/19/2019 11:31 AM CHAIR AND COUCH MAKER Narrative [facility]) - 05/22/2019 4:08 PM CHAIR AND COUCH MAKER COLLECTION KIT GIVEN TO PATIENT. PATIENT ADVISED TO RETURN. Resulting Agency Comment Performing Organization Information: ?Site ID: [place] ?Name: [facility] ?Address: [address] [place] [address] Dr Garvin [place] ?Director: Herberth Jasso M.D.,PhD Stevenson Penaloza MD LAB BLOOD ORDERABLES [facility] ([facility]) * (ABNORMAL) [place] and Lambda Free Light Chains, Qn, Serum (05/19/2019 11:25 AM CHAIR AND COUCH MAKER) [place] light chains, free, Serum 100.4(H) 3.3 - 19.4 mg/L [facility] ([facility]) Lambda light chains, free, Serum/Plasma 44.0(H) 5.7 - 26.3 mg/L [facility] ([facility]) [place] light chains, free/Lambda light chains, free, Serum 2.28(H) 0.26 - 1.65 [facility] ([facility]) Comment: Free kappa/lambda ratio in serum of [...] following response to therapy of these disorders. 05/19/2019 11:2 5 AM CHAIR AND COUCH MAKER 05/19/2019 11:31 AM CHAIR AND COUCH MAKER Narrative [facility] ([facility]) - 05/22/2019 4:08 PM CHAIR AND COUCH MAKER COLLECTION KIT GIVEN TO PATIENT. PATIENT ADVISED TO RETURN. Resulting Agency Comment Performing Organization Information: ?Site ID: [place] ?Name: [facility] ?Address: [address] [place] [address] ?Director: Hal Arnold D.O., MPH Stevenson Penaloza MD LAB BLOOD ORDERABLES [facility] ([facility]) * (ABNORMAL) Complement Total (CH50) (05/19/2019 11:25 AM CHAIR AND COUCH MAKER) Complement total hemolytic CH50, Serum/Plasma >60(H) 31 - 60 U/mL [facility] ([facility]) Blood 05/19/2019 11:2 5 AM CHAIR AND COUCH MAKER 05/19/2019 11:31 AM CHAIR AND COUCH MAKER Narrative [facility] ([facility]) - 05/22/2019 4:08 PM CHAIR AND COUCH MAKER COLLECTION KIT GIVEN TO PATIENT. PATIENT ADVISED TO RETURN. Resulting Agency Comment Performing Organization Information: ?Site ID: [place] ?Name: [facility] ?Address: [address] [place] [id number] ?Director: Hal Arnold D.O., MPH Stevenson Penaloza MD LAB BLOOD ORDERABLES [facility] [place] ([facility]) * Complement C3 + C4 (05/19/2019 11:25 AM CHAIR AND COUCH MAKER) [facility] Complement C3, Serum/Plasma 156 83 - 193 mg/dL [facility] ([facility]) Complement C4, Serum/Plasma 33 15 - 57 mg/dL [facility] ([facility]) Blood 05/19/2019 11:2 5 AM CHAIR AND COUCH MAKER 05/19/2019 11:31 AM CHAIR AND COUCH MAKER Narrative [facility] ([facility]) - 05/22/2019 4:08 PM CHAIR AND COUCH MAKER COLLECTION KIT GIVEN TO PATIENT. PATIENT ADVISED TO RETURN. Resulting Agency Comment Performing Organization Information: ?Site ID: [place] ?Name: [facility] ?Address: [address] [place] [id number] ?Director: Hal Arnold D.O. MPH Stevenson Penaloza MD LAB BLOOD ORDERABLES [facility] [facility]) * Antinuclear Antibodies (EMA), IFA w/ Refl Titer and Pattern (05/19/2019 11:25 AM CHAIR AND COUCH MAKER) EMA, Serum NEGATIVE NEGATIVE [facility] [place] ([facility]) Comment: EMA IFA is a first line screen for detecting the presence of up to approximately 150 autoantibodies in various autoimmune diseases. A negative EMA IFA result suggests an EMA-associated autoimmune disease is not present at this time, but is not definitive. If there is high clinical suspicion for Sjogren's syndrome, testing for anti-SS-A/Ro antibody should be considered. Anti-Lucy-1 antibody should be considered for clinically suspected inflammatory myopathies. AC-0: Negative International Consensus on EMA Patterns (https://doi.org/10.1515/ully-6489-3597) For additional information, please refer to http://education.SoupQubes/faq/WTN108 (This link is being provided for informational/ educational purposes only.) ?? Blood 05/19/2019 11:2 5 AM CHAIR AND COUCH MAKER 05/19/2019 11:31 AM CHAIR AND COUCH MAKER Narrative [facility] ([facility] - 05/22/2019 4:08 PM CHAIR AND COUCH MAKER COLLECTION KIT GIVEN TO PATIENT. PATIENT ADVISED TO RETURN. Resulting Agency Comment Performing Organization Information: ?Site ID: [place] ?Name: [facility] ?Address: [address] [place], [place] [address] [address] ?Director: Hal Arnold D.O., MPH Stevenson Penaloza MD LAB BLOOD ORDERABLES [facility]) documented in this encounter Visit Diagnoses Diagnosis Chronic kidney disease, Stage V (CMS-HCC)- Primary Chronic kidney disease, Stage V documented in this encounter Care Teams Health Education Teacher Relationship Specialty Start Date End Date Gaudencio Miranda MD [address] [place] [address] PCP - General Internal Medicine 01/14/19 documented as of this encounter
--- OUTSIDE RECORDS SUMMARY | 2024-03-07 17:29 | XMS_ITS | Encounter Summary ---
Author Organization [facility] Address [address] [address] Phone Care Team Providers Care Triage Clinician Name Role Phone Gaudencio Miranda MD Primary Care Provider [phone] Encounter Details Date Type Department Care Team (Late st Contact Info) Description 12/06/2021 Telephone [facility] Nephrology and Hypertension [address] [place] [address], [address] [place] [address] Donnell Reagn MA Social History Tobacco Use Types Packs/Day [...] or if we should puther on the [place] cancellation list. I told daughter I would call her back documented in this encounter Plan of Treatment Not on file documented as of this encounter Visit Diagnoses Not on filedocumented in this encounter Care Teams Triage Clinician Relationship Specialty Start Date End Date Gaudencio Miranda MD [address] [place] [address] PCP - General Internal Medicine 01/14/19 documented as of this encounter
--- OUTSIDE RECORDS SUMMARY | 2024-03-07 17:29 | XMS_ITS | Clinical Summary ---
Author Organization [facility] Address [address] [place] [address] Phone Care Team Providers Care Assistant Field Hockey Coach Name Role Phone Gaudencio Miranda MD Primary Care Provider [phone] Allergies Active Allergy Reactions Criticality Noted Date [...] Highest Risk Completed 12/15/2016, 01/12/2014 Care Teams Assistant Field Hockey Coach Relationship Specialty Start Date End Date Gaudencio Miranda MD [address] [place] [id number] PCP - General Internal Medicine 01/14/19
--- OUTSIDE RECORDS SUMMARY | 2024-03-07 17:29 | XMS_ITS | Encounter Summary ---
Author Organization [facility] Address [address] [place] [address] Phone Care Team Providers Care Clerical Adjudicator Name Role Phone Gaudencio Miranda MD Primary Care Provider [phone] Encounter Details Date Type Department Care Team (Late st Contact Info) Description 12/07/2021 Orders Only [facility] Nephrology and Hypertension [address] [facility], [address] [address] Stevenson Penaloza MD [address] [facility], [address] [facility] [place] [address] Chronic kidney disease, Stage V (CMS-HCC) (Primary [...] (CMS-HCC) documented in this encounter Care Teams Clerical Adjudicator Relationship Specialty Start Date End Date Gaudencio Miranda MD [address] [place] [address] PCP - General Internal Medicine 01/14/19 documented as of this encounter
--- OUTSIDE RECORDS SUMMARY | 2024-03-07 17:29 | XMS_ITS | Encounter Summary ---
Author Organization [facility] Address [address], [place] [address] Phone Care Team Providers Care Bottle Capping Machine Operator Name Role Phone Gaudencio Miranda MD Primary Care Provider [phone] Encounter Details Date Type Department Care Team (Late st Contact Info) Description 08/03/2021 2:00 PM CDT Office Visit [facility] Nephrology and Hypertension [address] [place] [address], [address] [place] [address] Nikki Penaloza MD [address] [facility], [address] [place] [address] Chronic kidney disease, Stage V (CMS-HCC) (Primary [...] Try to lose weight. Consider seeing a children's book author or PCP for help. She is thinking [...] Calcidiol, Serum/Plasma 78 30 - 100 ng/mL [employer] [facility] [place] (ST) Comment: Vitamin D Status ? 25-OH Vitamin D: Deficiency: ?<20 ng/mL Insufficiency: ? 20 - 29 ng/mL Optimal: ? > or = 30 ng/mL For 25-OH Vitamin D testing on patients on D2-supplementation and patients for whom quantitation of D2 and D3 fractions is required, the [facility]() 25-OH VIT D, (D2,D3), LC/MS/MS is recommended: order code 94544 (patients >2yrs). See Note 1 Note 1 For additional information, please refer to http://education.[employer].Ybrain/faq/GHQ890 (This link is being provided for informational/ educational purposes only.) 11/29/2021 11:0 0 PM CDT 11/30/2021 12:14 PM CDT Narrative [employer] [facility] & [place] (ST) - 12/01/2021 11:14 AM CDT FASTING:NO FASTING: NO Resulting Agency Comment Performing Organization Information: ?Site ID: [place] ?Name: [facility] ?Address: [address] [address] ?Director: Hal Arnold D.O., MPH Nikki Penaloza MD LAB BLOOD ORDERABLES [facility] ST ED [facility] [place] ([facility]) * (ABNORMAL) Renal Function Panel (RFP) (11/29/2021 11:00 PM CDT) Pathologist [facility] Glucose, Serum/Plasma 97 65 - 139 mg/dL [facility] ED [facility] [place] (STL) Comment: ? Non-fasting reference interval Urea nitrogen, Serum/Plasma (BUN) 42(H) 7 - 25 mg/dL [facility] [place] (ST[facility]) Creatinine, Serum/Plasma 2.37(H) 0.60 - 1.00 mg/dL [facility] ST. [facility] [place] ([facility]) Estimated Glomerular Filtration Rate (eGFR) 21(L) > OR = 60 mL/min/1.7 3m2 [facility]. ED & [place] ([facility]) Comment: The eGFR is based on the CKD-EPI 2020 equation. To calculate the new eGFR from a previous Creatinine or Cystatin C result, go to https://www.kidney.org/professionals/ kdoqi/gfr%5Fcalculator Urea nitrogen/Creati nine, Serum/Plasma 18 6 - 22 (calc) [facility]. [facility] [place] ([facility]) Sodium, Serum/Plasma 140 135 - 146 mmol/L [facility] ST. [facility] [place] ([facility]) Potassium, Serum/Plasma 4.3 3.5 - 5.3 mmol/L [facility]. [facility] [place] ([facility]) Chloride, Serum/Plasma 96(L) 98 - 110 mmol/L [facility] ST. [facility] [place] ([facility]) Carbon dioxide CO2), total, Serum/Plasma 38(H) 20 - 32 mmol/L [facility]. [facility] [place] ([facility]) Calcium, Serum/Plasma 10.2 8.6 - 10.4 mg/dL [facility] [place] ([facility]) Phosphate, Serum/Plasma 4.0 2.1 - 4.3 mg/dL [facility]. [facility] [place] ([facility]) Albumin, Serum/Plasma 4.2 3.6 - 5.1 g/dL [facility] ST. [facility] [place] ([facility]) Blood 11/29/2021 11:0 0 PM CDT 11/30/2021 12:14 PM CDT Narrative [facility] ST. [facility] [place] ([facility]) - 12/01/2021 11:14 AM CDT FASTING:NO FASTING: NO Resulting Agency Comment Performing Organization Information: ?Site ID: [place] ?Name: [facility] ?Address: [address] [place] [address] [place] [address] ?Director: Hal Arnold D.O., MPH Nikki Penaloza MD LAB BLOOD ORDERABLES [facility] ST ED [facility] [place] (ST) * Total Protein w/ Creatinine, Urine, Random (11/29/2021 11:00 PM CDT) Creatinine, Urine 87 20 - 275 mg/dL [facility]. [facility] [place] ([facility]) Protein/Creatin ine, Urine 80 24 - 184 mg/g creat [facility]. [facility] [place] ([facility]) Protein/Creatin ine, Urine 0.080 0.024 - 0.184 mg/mg creat [facility] [place] ([facility]) Protein, Urine 7 5 - 24 mg/dL [facility]. [facility] [place] ([facility]) 11/29/2021 11:0 0 PM CDT 11/30/2021 12:14 PM CDT Narrative [facility]. [facility] [place] ([facility]) - 12/01/2021 11:14 AM CDT FASTING:NO FASTING: NO Resulting Agency Comment Performing Organization Information: ?Site ID: [place] ?Name: [facility] ?Address: [address] [address] ?Director: Hal Arnold D.O., MPH Nikki Penaloza MD LAB URINE ORDERABLES [facility] ([facility]) * (ABNORMAL) PTH Intact w/o Calcium, Serum [...] Agency Comment Performing Organization Information: ?Site ID: [place] ?Name: [facility] ?Address: [address] [address] ?Director: Hal Arnold D.O., MPH Nikki Penaloza MD LAB BLOOD ORDERABLES [facility] ST. [facility] [place] (ST) * CBC (includes Differential/Platelets) (11/29/2021 11:00 PM CDT) [facility] Leukocytes, Blood 6.4 3.8 - 10.8 Thousand/u [...] Blood 28.4 % [facility] [place] ([facility]) Monocytes/100 leukocytes, Blood 11.8 [...] Agency Comment Performing Organization Information: ?Site ID: [place] ?Name: [facility] ?Address: [address] [place] [id number] ?Director: Hal Arnold D.O., MPH Nikki Penaloza MD LAB BLOOD ORDERABLES [facility] [place] ([facility]) documented in this encounter Visit Diagnoses Diagnosis Chronic kidney disease, Stage V (CMS-HCC)- Primary Chronic kidney disease, Stage V documented in this encounter Care Teams Bottle Capping Machine Operator Relationship Specialty Start Date End Date Gaudencio Miranda MD [address] [place] [address] PCP - General Internal Medicine 01/14/19 documented as of this encounter
--- OUTSIDE RECORDS SUMMARY | 2024-03-07 17:30 | XMS_ITS | Encounter Summary ---
Author Organization [facility] Address [address] [address] Phone Care Team Providers Care Preforming Machine Operator Name Role Phone Gaudencio Miranda MD Primary Care Provider [phone] Encounter Details Date Type Department Care Team (Late st Contact Info) Description 03/01/2020 10:30 AM PILOT PLANT OPERATOR HELPER Office Visit [facility] Nephrology and Hypertension [address] [place] [address], [address] [place] [address] Stevenson Penaloza MD [address] [facility], [address] [place] [address] Chronic kidney disease, Stage V (CMS-HCC) (Primary [...] Comments Blood Pressure 118/70 03/01/2020 10:29 AM PILOT PLANT OPERATOR HELPER Pulse 84 03/01/2020 10:29 AM PILOT PLANT OPERATOR HELPER Temperature 35.3 ??C (95.5 ??F) 03/01/2020 10:[address] Respiratory Rate - - Oxygen Saturation - - Inhaled Oxygen Concentration - - Weight 130 kg (286 lb) 03/01/2020 10:29 AM PILOT PLANT OPERATOR HELPER Height 172.7 cm (5' 8 ) 03/01/2020 10:29 AM PILOT PLANT OPERATOR HELPER Body Mass Index 43.49 03/01/2020 10:29 AM PILOT PLANT OPERATOR HELPER documented in this encounter Progress Notes * [...] is okay She was referred to [facility] in June but covid prevented her from going. Will retry this. continue same dose of diuretics. She has some low back pain (below kidneys). See will she pcp about this. The patients BMI is too high. Try to lose weight. Consider seeing a material inspector or PCP for help. She is thinking of [facility] discussed again how she should lose weight The patient had the pneumovax and the flu shot. Plan Lose weight Same meds Kidney smart Hep b vaccine RTC 4 months Assessment/Plan Diagnoses and all orders for this visit: Chronic kidney disease, Stage V ([facility]-HCC) Body mass index is 43.49 kg/m??. Follow [...] Agency Comment Performing Organization Information: ?Site ID: [place] ?Name: [facility] ?Address: [address] [address] ?Director: Hal Arnold D.O., MPH Stevenson Penaloza MD LAB URINE ORDERABLES [facility] * (ABNORMAL) Renal Function Panel (RFP) (06/28/2020 1:38 PM CDT) Glucose, Serum/Plasma 146(H) 65 - 99 mg/dL [facility] & [place] (STL) Comment: ? Fasting reference interval For someone without known diabetes, a glucose value >125 mg/dL indicates that they may have diabetes and this should be confirmed with a follow-up test. Urea nitrogen, Serum/Plasma (BUN) 31(H) 7 - 25 mg/dL [facility] [place] (ST[facility]) Creatinine, Serum/Plasma 2.72(H) 0.60 - 0.93 mg/dL [facility] & [place] (STL) Comment: For patients >49 years of age, the reference limit for Creatinine is approximately 13% higher for people identified as -Burmese. eGFR, non 17(L) > OR = 60 mL/min/1. 73m2 [facility] [place] ([facility]) eGFR, 20(L) > OR = 60 mL/min/1. 73m2 [facility] & [place] (ST[facility]) Urea nitrogen/Creatinin e, Serum/Plasma 11 6 - 22 (calc) [facility]. ED [facility] [place] ([facility]) Sodium, Serum/Plasma 138 135 - 146 mmol/L [facility]. [facility] [place] ([facility]) Potassium, Serum/Plasma 5.1 3.5 - 5.3 mmol/L [facility]. [facility] [place] ([facility]) Chloride, Serum/Plasma 99 98 - 110 mmol/L [facility]. [facility] [place] ([facility]) Carbon dioxide CO2), total, Serum/Plasma 33(H) 20 - 32 mmol/L [facility]. [facility] [place] ([facility]) Calcium, Serum/Plasma 9.6 8.6 - 10.4 mg/dL [facility]. [facility] [place] (ST[facility]) Phosphate, Serum/Plasma 3.7 2.1 - 4.3 mg/dL [facility] ([facility]) Albumin, Serum/Plasma 4.0 3.6 - 5.1 g/dL [facility] ([facility]) Blood 06/28/2020 1:38 PM CDT 06/28/2020 1:39 PM CDT Narrative Resulting Agency Comment Performing Organization Information: ?Site ID: [place] ?Name: [facility] ?Address: [address] [address] ?Director: Hal Arnold D.O., MPH Stevenson Penaloza [...] Agency Comment Performing Organization Information: ?Site ID: [place] ?Name: [facility] [place] ?Address: [address] [address] ?Director: Hal Arnold D.O., MPH Stevenson Penaloza [...] Agency Comment Performing Organization Information: ?Site ID: [place] ?Name: [facility] ?Address: [address] [place] [id number] ?Director: Hal Arnold D.O., MPH Stevenson Penaloza MD LAB BLOOD ORDERABLES [facility] [place] ([facility]) documented in this encounter Visit Diagnoses Diagnosis Chronic kidney disease, Stage V ([facility]-HCC)- Primary Chronic kidney disease, Stage V documented in this encounter Care Teams Preforming Machine Operator Relationship Specialty Start Date End Date Gaudencio Miranda MD [address] [place] [address] PCP - General Internal Medicine 01/14/19 documented as of this encounter
--- OUTSIDE RECORDS SUMMARY | 2024-03-07 17:30 | XMS_ITS | Clinical Summary ---
Author Organization [facility] Address [address] [place] [address]. [place], [place] [address] [place] [address] Care Team Providers Care Student Development Specialist Name Role Phone Unavailable Primary Care Provider [...]
--- OUTSIDE RECORDS SUMMARY | 2024-03-07 17:30 | XMS_ITS | Encounter Summary ---
Author Organization [facility] Address [address], [place] [address] Phone Care Team Providers Care Automation Architect Name Role Phone Gaudencio Miranda MD Primary Care Provider [phone] Encounter Details Date Type Department Care Team (Late st Contact Info) Description 03/09/2021 2:00 PM STUDENT SERVICES VICE PRESIDENT Office Visit [facility] Nephrology and Hypertension [address] [place] [address], [address] [place] [address] Stevenson Penaloza MD [address] [facility], [address] [place] [address] Chronic kidney disease, Stage V (CMS-HCC) (Primary [...] Comments Blood Pressure 128/70 03/09/2021 2:01 PM STUDENT SERVICES VICE PRESIDENT Pulse 60 03/09/2021 2:01 PM STUDENT SERVICES VICE PRESIDENT Temperature 35.7 ??C (96.2 ??F) 03/09/2021 2:01 PM CS T Respiratory Rate - - Oxygen Saturation - - Inhaled Oxygen Concentration - - Weight 137 kg (302 lb) 03/09/2021 2:01 PM STUDENT SERVICES VICE PRESIDENT Height 172.7 cm (5' 8 ) 03/09/2021 2:01 PM STUDENT SERVICES VICE PRESIDENT Body Mass Index 45.92 03/09/2021 2:01 PM STUDENT SERVICES VICE PRESIDENT documented in this encounter Progress Notes * [...] Try to lose weight. Consider seeing a chairman of the board or PCP for help. She is thinking [...] Performing Organization Information: ?Site ID: [place] ?Name: [facility] ?Address: [facility] [place] [address] ?Director: Hal Arnold D.O., MPH Stevenson Penaloza MD LAB BLOOD ORDERABLES Performing Organization Address City/[facility]/ZIP Co de Phone Number [facility] [place] ([facility]) * Total [...] Performing Organization Information: ?Site ID: [place] ?Name: [facility] ?Address: [facility] [place] [address] ?Director: Hal Arnold D.O., MPH Stevensno Penaloza MD LAB URINE ORDERABLES Performing Organization Address City/[facility]/ZIP Co de Phone Number [facility]. ED [facility] [place] ([facility]) * (ABNORMAL) Renal Function Panel (RFP) (07/27/2021 1:15 PM CDT) [facility] Glucose, Serum/Plasma 97 65 - 99 mg/dL [facility] [place] ([facility]) Comment: ? Fasting reference interval Urea nitrogen, Serum/Plasma (BUN) 42(H) 7 - 25 mg/dL [facility] [place] (ST) Creatinine, Serum/Plasma 2.46(H) 0.60 - 0.93 mg/dL [facility]) Comment: For patients >49 years of age, the reference limit for Creatinine is approximately 13% higher for people identified as -Greek. eGFR, non 19(L) > OR = 60 mL/min/1. 73m2 [facility]) eGFR, 22(L) > OR = 60 mL/min/1. 73m2 [facility]) Urea nitrogen/Creatinin e, Serum/Plasma 17 6 - 22 (calc) [facility] Sodium, Serum/Plasma 139 135 - 146 mmol/L [facility] Potassium, Serum/Plasma 4.3 3.5 - 5.3 mmol/L [facility]) Chloride, Serum/Plasma 97(L) 98 - 110 mmol/L [facility]) Carbon dioxide CO2), total, Serum/Plasma 35(H) 20 - 32 mmol/L [facility]) Calcium, Serum/Plasma 9.9 8.6 - 10.4 mg/dL [facility]) Phosphate, Serum/Plasma 4.2 2.1 - 4.3 mg/dL [facility]. [facility] [place] ([facility]) Albumin, Serum/Plasma 4.2 3.6 - 5.1 g/dL [facility]. [facility] [place] (ST) Blood 07/27/2021 1:15 PM CDT 07/27/2021 1:16 PM CDT Narrative Resulting Agency Comment Performing Organization Information: ?Site ID: [place] ?Name: [facility] ?Address: [address] [place] [address] ?Director: Hal Arnold D.O. MPH Stevenson Penaloza MD LAB BLOOD ORDERABLES [facility] (ST) * (ABNORMAL) PTH Intact w/o Calcium, Serum (07/27/2021 1:15 PM CDT) PTH, Intact, Serum/Plasma 117(H) 16 - 77 pg/mL [facility] ([facility]) Comment: Interpretive [...] Performing Organization Information: ?Site ID: [place] ?Name: [facility] ?Address: [address] [address] ?Director: Hal Arnold D.O. MPH Stevenson Penaloza MD LAB BLOOD ORDERABLES [facility] [place] ([facility]) * CBC (includes Differential/Platelets) (07/27/2021 1:15 PM CDT) [facility] Leukocytes, Blood 5.0 3.8 - 10.8 Thousand/u L [facility] [place] ([facility]) Erythrocytes (RBC) [...] Performing Organization Information: ?Site ID: [place] ?Name: [facility] ?Address: [facility] [address] [address] ?Director: Hal Arnold D.O., MPH Stevenson Penaloza MD LAB BLOOD ORDERABLES [facility] [place] ([facility]) documented in this encounter Visit Diagnoses Diagnosis Chronic kidney disease, Stage V (CMS-HCC)- Primary Chronic kidney disease, Stage V documented in this encounter Care Teams Automation Architect Relationship Specialty Start Date End Date Gaudencio Miranda MD [address] [place] [address] PCP - General Internal Medicine 01/14/19 documented as of this encounter
--- OUTSIDE RECORDS SUMMARY | 2024-03-07 17:30 | XMS_ITS | Encounter Summary ---
Author Organization [facility] Address [address], [place] [address] Phone Care Team Providers Care Medical Review Specialist Name Role Phone Gaudencio Miranda MD Primary Care Provider [phone] Encounter Details Date Type Department Care Team (Late st Contact Info) Description 05/19/2019 11:30 AM DIRECTOR OF WEB MARKETING Office Visit [facility] Nephrology and Hypertension [address] [place] [address], [address] [place] [address] Stevenson Penaloza MD [address] [facility], [address] [place] [address] Chronic kidney disease, Stage V (CMS-HCC) (Primary [...] Comments Blood Pressure 134/70 05/22/2019 7:46 PM DIRECTOR OF WEB MARKETING Pulse 84 05/22/2019 7:46 PM DIRECTOR OF WEB MARKETING Temperature 36.7 ??C (98 ??F) 05/22/2019 7:46 PM DIRECTOR OF WEB MARKETING Respiratory Rate - - Oxygen Saturation - - Inhaled Oxygen Concentration - - Weight 128 kg (282 lb 3 oz) 05/22/2019 7:[address] Height 172.7 cm (5' 8 ) 05/22/2019 7:46 PM DIRECTOR OF WEB MARKETING Body Mass Index 42.91 05/22/2019 7:46 PM DIRECTOR OF WEB MARKETING documented in this encounter Progress Notes * [...] Try to lose weight. Consider seeing a resident care manager rn or PCP for help. The patient had the pneumovax and the flu shot. The patient will work on the diet and get the testing done. Followup in a few weeks for further evaluation. Assessment/Plan Diagnoses and all orders for this visit: Chronic kidney disease, Stage V ([facility]-HCC) - Antinuclear Antibodies (EMA), IFA w/ Refl Titer and Pattern; Future - Complement C3 + C4; Future - Complement Total (CH50); Future - Deary and Lambda Free Light Chains, Qn, Serum; [...] address BMI is too high. See above. [facility] Plan of Treatment [...] (HCV) AB, SERUM Routine 05/19/2019 11:25 AM DIRECTOR OF WEB MARKETING Chronic kidney disease, Stage V (CMS-HCC) KAPPA/LAMBDA FREE LIGHT CHAINS, QN, SERUM Routine 05/19/2019 11:25 AM DIRECTOR OF WEB MARKETING Chronic kidney disease, Stage V (CMS-HCC) TOTAL PROTEIN W/ CREATININE, URINE, RANDOM Routine 05/19/2019 11:25 AM DIRECTOR OF WEB MARKETING Chronic kidney disease, Stage V (CMS-HCC) VITAMIN D, 25-HYDROXY, SERUM Routine 05/19/2019 11:25 AM DIRECTOR OF WEB MARKETING Chronic kidney disease, Stage V (CMS-HCC) RENAL FUNCTION PANEL (RFP) Routine 05/19/2019 11:25 AM DIRECTOR OF WEB MARKETING Chronic kidney disease, Stage V (CMS-HCC) URINALYSIS W/ REFLEX TO MICROSCOPIC Routine 05/19/2019 11:25 AM DIRECTOR OF WEB MARKETING Chronic kidney disease, Stage V (CMS-HCC) COMPLEMENT C3 + C4 Routine 05/19/2019 11 :25 AM DIRECTOR OF WEB MARKETING Chronic kidney disease, Stage V (CMS-HCC) ERYTHROCYTE SEDIMENTATION RATE (ESR) Routine 05/19/2019 11:25 AM DIRECTOR OF WEB MARKETING Chronic kidney disease, Stage V (CMS-HCC) COMPLEMENT TOTAL (CH50) Routine 05/19/19 20 11:25 AM DIRECTOR OF WEB MARKETING Chronic kidney disease, Stage V (CMS-HCC) IMMUNOFIXATION, SERUM Routine 05/19/2019 11:25 AM DIRECTOR OF WEB MARKETING Chronic kidney disease, Stage V ([facility]) ANTINUCLEAR ANTIBODIES (EMA), IFA W/ REFL TITER AND PATTERN Routine 05/19/2019 11:25 AM DIRECTOR OF WEB MARKETING Chronic kidney disease, Stage V (CMS-HCC) PTH INTACT W/O CALCIUM, SERUM Routine 05/19/2019 11:25 AM DIRECTOR OF WEB MARKETING Chronic kidney disease, Stage V ([facility]) documented in this encounter Results * [...] abnormal protein is observed. Immunofixation for Urine [facility] (ST) Comment: No monoclonal immunoglobulin detected. Creatinine, 24 hour Urine 1.20 0.50 - 2.15 g/24 [address] [facility] [place] ([facility]) Protein/Creatinine, 24 hour Urine 140(H) < OR = 114 mg/g creat [facility] [place] ([facility]) Protein/Creatinine, 24 hour Urine 0.140(H) < OR = 0.114 mg/mg creat [facility] [place] ([facility]) Protein, 24 hour Urine 168(H) <150 mg/24 h [facility] (ST) Urine 05/26/2019 8:33 AM CDT 05/26/2019 8:35 AM CDT Narrative [facility] (ST) - 05/27/2019 2:41 PM CDT SPLIT 05/19/2019 FROM [id number] URINE VOLUME: 2800/24 Resulting Agency Comment Performing Organization Information: ?Site ID: [place] ?Name: [facility] ?Address: [address] [place], [place] [address]ner [place] [address] ?Director: Hal Arnold D.O., MPH Stevenson Penaloza MD LAB URINE ORDERABLES [facility] ([facility]) * Vitamin D, 25-Hydroxy, Serum (05/19/2019 11:25 AM DIRECTOR OF WEB MARKETING) Calcidiol, Serum/Plasma 47 30 - 100 ng/mL [facility] ([facility]) Comment: Vitamin D Status ? 25-OH Vitamin D: Deficiency: ?<20 ng/mL Insufficiency: ? 20 - 29 ng/mL Optimal: ? > or = 30 ng/mL For 25-OH Vitamin D testing on patients on D2-supplementation and patients for whom quantitation of D2 and D3 fractions is required, the QuestAssureD(TM) 25-OH VIT D, (D2,D3), LC/MS/MS is recommended: order code 46681 (patients >2yrs). For more information on this test, go to: http://education.Vubiquity/faq/FEI800 (This link is being provided for informational/educational purposes only.) 05/19/2019 11:2 5 AM DIRECTOR OF WEB MARKETING 05/19/2019 11:31 AM DIRECTOR OF WEB MARKETING Narrative [facility] ([facility]) - 05/22/2019 4:08 PM DIRECTOR OF WEB MARKETING COLLECTION KIT GIVEN TO PATIENT. PATIENT ADVISED TO RETURN. Resulting Agency Comment Performing Organization Information: ?Site ID: [place] ?Name: [facility] ?Address: [address] [place], [place] [address] [address] ?Director: Hal Arnold D.O., MPH Stevenson Penaloza MD LAB BLOOD ORDERABLES [facility] ([facility]) * (ABNORMAL) Urinalysis w/ Reflex to Microscopic (05/19/2019 11:25 AM DIRECTOR OF WEB MARKETING) Color of Urine YELLOW YELLOW [facility] [...] [facility] [place] ([facility]L) Comment:Result canceled by t laamr ancillary. Urine 05/19/2019 11:2 5 AM DIRECTOR OF WEB MARKETING 05/19/2019 11:31 AM DIRECTOR OF WEB MARKETING Narrative [facility] [place] ([facility]) - 05/22/2019 4:08 PM DIRECTOR OF WEB MARKETING COLLECTION KIT GIVEN TO PATIENT. PATIENT ADVISED TO RETURN. Resulting Agency Comment Performing Organization Information: ?Site ID: [place] ?Name: [facility] ?Address: [address] [place] [address] [place] [address] ?Director: Hal Arnold D.O., MPH Stevenson Penaloza MD LAB URINE ORDERABLES [facility] ([facility]) * (ABNORMAL) Total Protein w/ Creatinine, Urine, Random (05/19/2019 11:25 AM DIRECTOR OF WEB MARKETING) Creatinine, Urine 74 20 - 275 mg/dL [facility] [place] ([facility]) Protein/Creati nine, Urine 162(H) 21 - 161 mg/g creat [facility] [place] ([facility]) Protein/Creati nine, Urine 0.162(H) 0.021 - 0.161 mg/mg creat [facility] ([facility]) Protein, Urine 12 5 - 24 mg/dL [facility] ([facility]) 05/19/2019 11:2 5 AM DIRECTOR OF WEB MARKETING 05/19/2019 11:31 AM DIRECTOR OF WEB MARKETING Narrative [facility] ([facility]) - 05/22/2019 4:08 PM DIRECTOR OF WEB MARKETING COLLECTION KIT GIVEN TO PATIENT. PATIENT ADVISED TO RETURN. Resulting Agency Comment Performing Organization Information: ?Site ID: [place] ?Name: Gerda Brown ?Address: [place] [address] ?Director: Hal Arnold D.O., MPH Stevenson Penaloza MD LAB URINE ORDERABLES Performing Organization Address [facility] de Phone Number [facility] ([facility]) * (ABNORMAL) Erythrocyte Sedimentation Rate (ESR) (05/19/2019 11:25 AM DIRECTOR OF WEB MARKETING) Erythrocyte sedimentation rate (ESR) 45(H) < OR = 30 mm/h [facility] (ST) Blood 05/19/2019 11:2 5 AM DIRECTOR OF WEB MARKETING 05/19/2019 11:31 AM DIRECTOR OF WEB MARKETING Narrative [facility] ([facility]L) - 05/22/2019 4:08 PM DIRECTOR OF WEB MARKETING COLLECTION KIT GIVEN TO PATIENT. PATIENT ADVISED TO RETURN. Resulting Agency Comment Performing Organization Information: ?Site ID: [place] ?Name: Gerda Brown ?Address: [address] [address] ?Director: Hal Arnold D.O., MPH Stevenson Penaloza MD LAB BLOOD ORDERABLES Performing Organization Address [facility] de Phone Number [facility] ([facility]) * (ABNORMAL) Renal Function Panel (RFP) (05/19/2019 11:25 AM DIRECTOR OF WEB MARKETING) Glucose, Serum/Plasma 86 65 - 99 mg/dL [facility] (ST) Comment: ? Fasting reference interval Urea nitrogen, Serum/Plasma (BUN) 27(H) 7 - 25 mg/dL [facility] (ST) Creatinine, Serum/Plasma 2.69(H) 0.60 - 0.93 mg/dL [facility] [place] ([facility]) Comment: For patients >49 years of age, the reference limit for Creatinine is approximately 13% higher for people identified as -Taiwanese. eGFR, non 17(L) > OR = 60 mL/min/1. 73m2 [facility] [place] ([facility]) eGFR, 20(L) > OR = 60 mL/min/1. 73m2 [facility] [place] ([facility]) Urea nitrogen/Creatinin e, Serum/Plasma 10 6 - 22 (calc) [facility] [place] ([facility]) Sodium, Serum/Plasma 140 135 - 146 mmol/L [facility] [place] ([facility]) Potassium, Serum/Plasma 4.5 3.5 - 5.3 mmol/L [facility] [place] ([facility]) Chloride, Serum/Plasma 100 98 - 110 mmol/L [facility] [place] ([facility]) Carbon dioxide CO2), total, Serum/Plasma 30 20 - 32 mmol/L [facility] [place] ([facility]) Calcium, Serum/Plasma 9.7 8.6 - 10.4 mg/dL [facility] [place] ([facility]) Phosphate, Serum/Plasma 3.5 2.1 - 4.3 mg/dL [facility] [place] ([facility]) Albumin, Serum/Plasma 4.0 3.6 - 5.1 g/dL [facility] [place] ([facility]) Blood 05/19/2019 11:2 5 AM DIRECTOR OF WEB MARKETING 05/19/2019 11:31 AM DIRECTOR OF WEB MARKETING Narrative [facility] [place] ([facility]) - 05/22/2019 4:08 PM DIRECTOR OF WEB MARKETING COLLECTION KIT GIVEN TO PATIENT. PATIENT ADVISED TO RETURN. Resulting Agency Comment Performing Organization Information: ?Site ID: [place] ?Name: [facility] ?Address: [place] [address] ?Director: Hal Arnold D.O., MPH Stevenson Penaloza MD LAB BLOOD ORDERABLES [facility] ([facility]) * (ABNORMAL) PTH Intact w/o Calcium, Serum (05/19/2019 11:25 AM DIRECTOR OF WEB MARKETING) PTH, Intact, Serum/Plasma 127(H) 14 - 64 pg/mL [facility] ([facility]) Comment: Interpretive Guide ?Intact PTH ? Calcium ? ------- Normal Parathyroid ?Normal ? Normal Hypoparathyroidism ?Low or Low Normal ?Low Hyperparathyroidism ?? Primary ?Normal or High ? High ?? Secondary ?High ? Normal or Low ?? Tertiary ? High ? High Non-Parathyroid ?? Hypercalcemia ?Low or Low Normal ?High Blood 05/19/2019 11:2 5 AM DIRECTOR OF WEB MARKETING 05/19/2019 11:31 AM DIRECTOR OF WEB MARKETING Narrative [facility] [place] (ST) - 05/22/2019 4:08 PM DIRECTOR OF WEB MARKETING COLLECTION KIT GIVEN TO PATIENT. PATIENT ADVISED TO RETURN. Resulting Agency Comment Performing Organization Information: ?Site ID: [place] ?Name: [facility] ?Address: [address] [place] [address] ?Director: Hal Arnold D.O., MPH Stevenson Penaloza MD LAB BLOOD ORDERABLES [facility] ([facility]) * Immunofixation, Serum (05/19/2019 11:25 AM DIRECTOR OF WEB MARKETING) Pathologist [facility] Immunofixation for Serum/Plasma [facility] [place] ([facility]) Comment: Normal pattern. No monoclonal proteins detected. Blood 05/19/2019 11:2 5 AM DIRECTOR OF WEB MARKETING 05/19/2019 11:31 AM DIRECTOR OF WEB MARKETING Narrative [facility] ([facility]) - 05/22/2019 4:08 PM DIRECTOR OF WEB MARKETING COLLECTION KIT GIVEN TO PATIENT. PATIENT ADVISED TO RETURN. Resulting Agency Comment Performing Organization Information: ?Site ID: [place] ?Name: [employer] ?Address: [address] [place] [address] ?Director: Hal Arnold D.O., MPH Stevenson Penaloza MD LAB URINE ORDERABLES Performing Organization Address [facility]/State/ZIP Co de Phone Number [facility] ([facility]) * Hepatitis C Virus (HCV) AB, Serum (05/19/2019 11:25 AM DIRECTOR OF WEB MARKETING) Pathologist [facility] Hepatitis C virus Ab, Serum from Donor Nonreactive Nonreactive [facility] . [facility] [place] (ST) Comment: This test is for eligibility determination of Donors of blood and blood components and human cells, tissues, and cellular and tissue based products (HCT/Ps). This test is not intended to be used for routine clinical or routine diagnostic evaluation. ? 05/19/2019 11:2 5 AM DIRECTOR OF WEB MARKETING 05/19/2019 11:31 AM DIRECTOR OF WEB MARKETING Narrative [facility] ([facility]) - 05/22/2019 4:08 PM DIRECTOR OF WEB MARKETING COLLECTION KIT GIVEN TO PATIENT. PATIENT ADVISED TO RETURN. Resulting Agency Comment Performing Organization Information: ?Site ID: [place] ?Name: [employer] ?Address: [address] [place] [address] Dr Garvin [place] ?Director: Herberth Jasso M.D.,PhD Stevenson Penaloza MD LAB BLOOD ORDERABLES [facility] ([facility]) * (ABNORMAL) Deary and Lambda Free Light Chains, Qn, Serum (05/19/2019 11:25 AM DIRECTOR OF WEB MARKETING) Deary light chains, free, Serum 100.4(H) 3.3 - 19.4 mg/L [facility] ([facility]) Lambda light chains, free, Serum/Plasma 44.0(H) 5.7 - 26.3 mg/L [facility] [place] (ST) Deary light chains, free/Lambda light chains, free, Serum 2.28(H) 0.26 - 1.65 [facility] ([facility]) Comment: Free kappa/lambda ratio in serum of [...] of these disorders. 05/19/2019 11:2 5 AM DIRECTOR OF WEB MARKETING 05/19/2019 11:31 AM DIRECTOR OF WEB MARKETING Narrative [facility] ([facility]) - 05/22/2019 4:08 PM DIRECTOR OF WEB MARKETING COLLECTION KIT GIVEN TO PATIENT. PATIENT ADVISED TO RETURN. Resulting Agency Comment Performing Organization Information: ?Site ID: [place] ?Name: [employer] ?Address: [address] [place] [address] ?Director: Hal Arnold D.O., MPH Stevenson Penaloza MD LAB BLOOD ORDERABLES [facility] ([facility]) * (ABNORMAL) Complement Total (CH50) (05/19/2019 11:25 AM DIRECTOR OF WEB MARKETING) Complement total hemolytic CH50, Serum/Plasma >60(H) 31 - 60 U/mL [facility] [place] ([facility]) Blood 05/19/2019 11:2 5 AM DIRECTOR OF WEB MARKETING 05/19/2019 11:31 AM DIRECTOR OF WEB MARKETING Narrative [facility] ([facility]) - 05/22/2019 4:08 PM DIRECTOR OF WEB MARKETING COLLECTION KIT GIVEN TO PATIENT. PATIENT ADVISED TO RETURN. Resulting Agency Comment Performing Organization Information: ?Site ID: [place] ?Name: [employer] ?Address: [address] [place] [address] ?Director: Hal Arnold D.O., MPH Stevenson Penaloza MD LAB BLOOD ORDERABLES [facility] [place] ([facility]) * Complement C3 + C4 (05/19/2019 11:25 AM DIRECTOR OF WEB MARKETING) [facility] Complement C3, Serum/Plasma 156 83 - 193 mg/dL [facility] [place] ([facility]) Complement C4, Serum/Plasma 33 15 - 57 mg/dL [facility] [place] ([facility]) Blood 05/19/2019 11:2 5 AM DIRECTOR OF WEB MARKETING 05/19/2019 11:31 AM DIRECTOR OF WEB MARKETING Narrative [facility] ([facility]) - 05/22/2019 4:08 PM DIRECTOR OF WEB MARKETING COLLECTION KIT GIVEN TO PATIENT. PATIENT ADVISED TO RETURN. Resulting Agency Comment Performing Organization Information: ?Site ID: [place] ?Name: [employer] ?Address: [address] [place] [phone] ?Director: Hal Arnold D.O. MPH Stevenson Penaloza MD LAB BLOOD ORDERABLES [facility]) * Antinuclear Antibodies (EMA), IFA w/ Refl Titer and Pattern (05/19/2019 11:25 AM DIRECTOR OF WEB MARKETING) EMA, Serum NEGATIVE NEGATIVE [facility] - [facility] [...] AC-0: Negative International Consensus on EMA Patterns (https://doi.org/10.1515/hdjt-6286-2897) For additional information, please refer to http://education.Amplify.LA/faq/PAU834 (This link is being provided for informational/ educational purposes only.) ?? Blood 05/19/2019 11:2 5 AM DIRECTOR OF WEB MARKETING 05/19/2019 11:31 AM DIRECTOR OF WEB MARKETING Narrative [facility] ([facility]) - 05/22/2019 4:08 PM DIRECTOR OF WEB MARKETING COLLECTION KIT GIVEN TO PATIENT. PATIENT ADVISED TO RETURN. Resulting Agency Comment Performing Organization Information: ?Site ID: [place] ?Name: [facility] [facility] ?Address: [address] [place], [place] [address] [address] ?Director: Hal Arnold D.O., MPH Stevenson Penaloza MD LAB BLOOD ORDERABLES [facility] ([facility]) documented in this encounter Visit Diagnoses Diagnosis Chronic kidney disease, Stage V (CMS-HCC)- Primary Chronic kidney disease, Stage V documented in this encounter Care Teams Medical Review Specialist Relationship Specialty Start Date End Date Gaudencio Miranda MD [address] [place] [address] PCP - General Internal Medicine 01/14/19 documented as of this encounter
--- OUTSIDE RECORDS SUMMARY | 2024-03-07 17:30 | XMS_ITS | Encounter Summary ---
Author Organization [facility] Address [address] [place] [address]. [place], [place] [id number] [place] [address] Care Team Providers Care Supervisor Byproducts Name Role Phone Unavailable Primary Care Provider Unavailabl e Encounter Details Date Type Department Care Team (Late st Contact Info) Description 05/23/1994 [place] [address] , Generic Conversion, Social History Tobacco Use [...]
--- OUTSIDE RECORDS SUMMARY | 2024-03-07 17:30 | XMS_ITS | Encounter Summary ---
Author Organization [facility] Address [address] [address] Phone Care Team Providers Care Psychiatric Clinical Nurse Specialist Name Role Phone Gaudencio Miranda MD Primary Care Provider [phone] Encounter Details Date Type Department Care Team (Late st Contact Info) Description 07/05/2020 1:00 PM CDT Office Visit [facility] Nephrology and Hypertension [address] [place] [address], [address] [place] [address] Stevenson Penaloza MD [address] [facility], [address] [place] [address] Chronic kidney disease, Stage V (CMS-HCC) (Primary [...] CO2 is okay Pt will call kidney Voxxter people. Long discussion about modalities.. continue same dose of diuretics. She has some low back pain (below kidneys). See will she pcp about this. The patients BMI is too high. Try to lose weight. Consider seeing a accountant assistant or PCP for help. She is thinking [...] Agency Comment Performing Organization Information: ?Site ID: [place] ?Name: [facility] ?Address: [address] [place] [address], [place] [address] ?Director: Hal Arnold D.O., MPH Stevenson Penaloza MD LAB BLOOD ORDERABLES Performing Organization Address City/[facility]/ZIP Co de Phone Number [facility] PERDOM[facility] & [...] Agency Comment Performing Organization Information: ?Site ID: [place] ?Name: [facility] [employer] ?Address: [address] [place] [address] ?Director: Hal Arnold D.O., MPH Stevenson Penaloza MD LAB BLOOD ORDERABLES Performing Organization Address City/[facility]/ZIP Co de Phone Number [facility] ([facility]) * Total Protein w/ Creatinine, Urine, Random (10/26/2020 10:49 AM CDT) Creatinine, Urine 123 20 - 275 mg/dL [facility] [place] ([facility]) Protein/Creatin ine, Urine 106 21 - 161 mg/g creat [facility] ([facility]) Protein/Creatin ine, Urine 0.106 0.021 - 0.161 mg/mg creat [facility] ([facility]) Protein, Urine 13 5 - 24 mg/dL [facility]. [facility] ([facility]) 10/26/2020 10:4 9 AM CDT 10/26/2020 10:50 AM CDT Narrative Resulting Agency Comment Performing Organization Information: ?Site ID: [place] ?Name: [facility] ?Address: [address] [place] [address] [place] [address] ?Director: Hal Arnold D.O., MPH Stevenson Penaloza MD LAB URINE ORDERABLES [facility] ([facility]) * (ABNORMAL) Renal Function Panel (RFP) (10/26/2020 10:49 AM CDT) Pathologist [facility] Glucose, Serum/Plasma 98 65 - 99 mg/dL [facility] [place] ([facility]) Comment: ? Fasting reference interval Urea nitrogen, Serum/Plasma (BUN) 29(H) 7 - 25 mg/dL [facility] ([facility]) Creatinine, Serum/Plasma 3.08(H) 0.60 - 0.93 mg/dL [facility] ([facility]) Comment: For patients >49 years of age, the reference limit for Creatinine is approximately 13% higher for people identified as -Sudanese. eGFR, non 15(L) > OR = 60 mL/min/1. 73m2 [facility] ([facility]) eGFR, 17(L) > OR = 60 mL/min/1. 73m2 [facility] ([facility]) Urea nitrogen/Creatinin e, Serum/Plasma 9 6 - 22 (calc) [facility] ([facility]) Sodium, Serum/Plasma 138 135 - 146 mmol/L [facility] ([facility]) Potassium, Serum/Plasma 4.9 3.5 - 5.3 mmol/L [facility] ([facility]) Chloride, Serum/Plasma 98 98 - 110 mmol/L [facility] ([facility]) Carbon dioxide CO2), total, Serum/Plasma 32 20 - 32 mmol/L [facility] ([facility]) Calcium, Serum/Plasma 9.5 8.6 - 10.4 mg/dL [facility] ([facility]) Phosphate, Serum/Plasma 4.3 2.1 - 4.3 mg/dL [facility] ([facility]) Albumin, Serum/Plasma 3.9 3.6 - 5.1 g/dL [facility] ([facility]) Blood 10/26/2020 10:4 9 AM CDT 10/26/2020 10:50 AM CDT Narrative Resulting Agency Comment Performing Organization Information: ?Site ID: [place] ?Name: [facility] ?Address: [address] [place] [id number] ?Director: Hal Arnold D.O., MPH Stevenson Penaloza MD LAB BLOOD ORDERABLES [facility] ([facility]) documented in this encounter Visit Diagnoses Diagnosis Chronic kidney disease, Stage V (CMS-HCC)- Primary Chronic kidney disease, Stage V documented in this encounter Care Teams Psychiatric Clinical Nurse Specialist Relationship Specialty Start Date End Date Gaudencio Miranda MD [address] [place] [address] PCP - General Internal Medicine 01/14/19 documented as of this encounter
--- OUTSIDE RECORDS SUMMARY | 2024-03-07 17:30 | XMS_ITS | Encounter Summary ---
Author Organization [facility] Address [address], [place] [address] Phone Care Team Providers Care Livestock Dealer Name Role Phone Gaudencio Miranda MD Primary Care Provider [phone] Encounter Details Date Type Department Care Team (Late st Contact Info) Description 11/03/2020 3:00 PM CDT Office Visit [facility] Nephrology and Hypertension [address] [place] [address], [address] [place] [address] Stevenson Penaloza MD [address] [facility], [address] [place] [address] Chronic kidney disease, Stage V (CMS-HCC) (Primary [...] Try to lose weight. Consider seeing a grommet machine operator or PCP for help. She is thinking [...] V documented in this encounter Care Teams Livestock Dealer Relationship Specialty Start Date End Date Gaudencio Miranda MD [address] [place] [address] PCP - General Internal Medicine 01/14/19 documented as of this encounter
--- OUTSIDE RECORDS SUMMARY | 2024-03-07 17:30 | XMS_ITS | Encounter Summary ---
Author Organization [facility] Address [address] [place] [address] Phone Care Team Providers Care Rag Cutting Machine Operator Name Role Phone Gaudencio Miranda MD Primary Care Provider [phone] Encounter Details Date Type Department Care Team (Late st Contact Info) Description 07/29/2019 Telephone [facility] Nephrology and Hypertension [address] [facility], [address] [facility] [place] [address] Stevenson Penaloza MD [address], [address] [place] [address] Social History Tobacco Use Types Packs/Day Years [...] AM CDT Chronic kidney disease, Stage V (CMS-[facility]) PTH INTACT W/O CALCIUM, SERUM Routine 11/12/2019 10:06 AM CDT Chronic kidney disease, Stage V (CMS-[facility]) documented in this encounter Results * (ABNORMAL) [place] and Lambda Free Light Chains, Qn, Serum (11/12/2019 10:06 AM CDT) [place] light chains, free, Serum 108.8(H) 3.3 - 19.4 mg/L [facility] [place] ([facility]) Lambda light chains, free, Serum/Plasma 43.2(H) 5.7 - 26.3 mg/L [facility] [place] ([facility]) [place] light chains, free/Lambda light chains, free, Serum [...] Performing Organization Information: ?Site ID: [id number] ?Name: [employer] ?Address: [address] [place] [address] ?Director: Hal Arnold D.O., MPH Stevenson Penaloza MD LAB BLOOD ORDERABLES [facility] (ST) * Vitamin D, 25-Hydroxy, Serum (11/12/2019 10:06 AM CDT) Calcidiol, Serum/Plasma 51 30 - 100 ng/mL [facility] (STL) Comment: Vitamin D Status ? 25-OH Vitamin D: Deficiency: ?<20 ng/mL Insufficiency: ? 20 - 29 ng/mL Optimal: ? > or = 30 ng/mL For 25-OH Vitamin D testing on patients on D2-supplementation and patients for whom quantitation of D2 and D3 fractions is required, the QuestAssureD(TM) 25-OH VIT D, (D2,D3), LC/MS/MS is recommended: order code 90658 (patients >2yrs). See Note 1 Note 1 For additional information, please refer to http://education.Orphazyme.Replica Labs/faq/JWC514 (This link is being provided for informational/ educational purposes only.) 11/12/2019 10:0 6 AM CDT 11/12/2019 10:07 AM CDT Narrative Resulting Agency Comment Performing Organization Information: ?Site ID: [id number] ?Name: [employer] ?Address: [address] [place] [address] ?Director: Hal Arnold D.O., MPH Stevenson Penaloza MD LAB BLOOD ORDERABLES [facility] [place] [facility]) * (ABNORMAL) Renal Function Panel (RFP) (11/12/2019 10:06 AM CDT) Glucose, Serum/Plasma 87 65 - 99 mg/dL [facility] [place] (STL) Comment: ? Fasting reference interval Urea nitrogen, Serum/Plasma (BUN) 28(H) 7 - 25 mg/dL [facility] [place] (STL) Creatinine, Serum/Plasma 2.67(H) 0.60 - 0.93 mg/dL [facility] & [place] (STL) Comment: For patients >49 years of age, the reference limit for Creatinine is approximately 13% higher for people identified as -Iraqi. eGFR, non 17(L) > OR = 60 mL/min/1. 73m2 [facility] ED & [place] (STL) eGFR, 20(L) > OR = 60 mL/min/1. 73m2 [facility] & [place] (STL) Urea nitrogen/Creatinin e, Serum/Plasma 10 6 - 22 (calc) [facility] [place] (STL) Sodium, Serum/Plasma 142 135 - 146 mmol/L [facility]. ED & [place] (STL) Potassium, Serum/Plasma 4.1 3.5 - 5.3 mmol/L [facility]. ED & [place] (STL) Chloride, Serum/Plasma 102 98 - 110 mmol/L [facility]. ED & [place] (STL) Carbon dioxide CO2), total, Serum/Plasma 35(H) 20 - 32 mmol/L [facility] [place] (STL) Calcium, Serum/Plasma 9.6 8.6 - 10.4 mg/dL [facility]. ED & [place] (STL) Phosphate, Serum/Plasma 3.3 2.1 - 4.3 mg/dL [facility]. ED & [place] (STL) Albumin, Serum/Plasma 4.0 3.6 - 5.1 g/dL [facility] [place] (ST[facility]) Blood 11/12/2019 10:0 6 AM CDT 11/12/2019 10:07 AM CDT Narrative Resulting Agency Comment Performing Organization Information: ?Site ID: [id number] ?Name: [employer] ?Address: [address] [address] ?Director: Hal Arnold D.O., MPH Stevenson Penaloza MD LAB BLOOD ORDERABLES [facility] & [place] (STL) * (ABNORMAL) PTH Intact w/o Calcium, Serum (11/12/2019 10:06 AM CDT) PTH, Intact, Serum/Plasma 113(H) 14 - 64 pg/mL [facility] [employer] . ED & [place] (STL) Comment: Interpretive [...] Performing Organization Information: ?Site ID: [place] ?Name: [facility] ?Address: [address] [address] ?Director: Hal Arnold D.O., MPH Stevenson Penaloza MD LAB BLOOD ORDERABLES [facility] - ST. [facility] [place] (STL) * CBC (includes Differential/Platelets) (11/12/2019 10:06 AM CDT) Pathologist [facility] Leukocytes, Blood 6.7 3.8 - 10.8 Thousand/u [...] Performing Organization Information: ?Site ID: [place] ?Name: [facility] ?Address: [address] [place] [address] [place] [address] ?Director: Hal Arnold D.O., MPH Stevenson Penaloza MD LAB BLOOD ORDERABLES [facility] [place] (STL) documented in this encounter Visit Diagnoses Diagnosis Chronic kidney disease, Stage V ([facility]-HCC)- Primary Chronic kidney disease, Stage V documented in this encounter Care Teams Rag Cutting Machine Operator Relationship Specialty Start Date End Date Gaudencio Miranda MD [address] [place], [place] [id number] PCP - General Internal Medicine 01/14/19 documented as of this encounter
--- OUTSIDE RECORDS SUMMARY | 2024-03-07 17:30 | XMS_ITS | Encounter Summary ---
Author Organization [facility] Address [address] [address] Phone Care Team Providers Care Supervisor Cutting Department Name Role Phone Gaudencio Miranda MD Primary Care Provider [phone] Encounter Details Date Type Department Care Team (Late st Contact Info) Description 07/07/2019 11:00 AM CDT Office Visit [facility] Nephrology and Hypertension [address] [place] [address], [address] [place] [address] Stevenson Penaloza MD [address], [address] [place] [address] Chronic kidney disease, Stage V (CMS-HCC) (Primary [...] Try to lose weight. Consider seeing a medical clinic manager or PCP for help. She is thinking of nutrasystems The patient had the pneumovax and the flu shot. Plan Go ahead and get the ultrasound Lose weight Same meds RTC 4 months Assessment/Plan Diagnoses and all orders for this visit: Chronic kidney disease, Stage V ([facility]-HCC) Body mass index is 45.16 kg/m??. Follow up plan to address BMI is too high. See above. documented in this encounter Plan of Treatment Not on file documented as of this encounter Visit Diagnoses Diagnosis Chronic kidney disease, Stage V ([facility]-HCC)- Primary Chronic kidney disease, Stage V documented in this encounter Care Teams Supervisor Cutting Department Relationship Specialty Start Date End Date Gaudencio Miranda MD [address] [place] [address] PCP - General Internal Medicine 01/14/19 documented as of this encounter
--- OUTSIDE RECORDS SUMMARY | 2024-03-07 17:30 | XMS_ITS | Encounter Summary ---
Author Organization [facility] Address [address] [place] [address]. [place], [place] [id number] [place] [address] Care Team Providers Care Engineering Tech Name Role Phone Unavailable Primary Care Provider Unavailabl e Encounter Details Date Type Department Care Team (Late st Contact Info) Description 09/27/1992 [place] [address] , Generic Conversion, Social History Tobacco Use [...]
--- OUTSIDE RECORDS SUMMARY | 2024-03-07 17:30 | XMS_ITS | Encounter Summary ---
Author Organization [facility] Address [address] [address] Phone Care Team Providers Care Wireless Architect Name Role Phone Gaudencio Miranda MD Primary Care Provider Encounter Details Date Type Department Care Team (Late st Contact Info) Description 11/17/2019 1:00 PM CDT Office Visit [facility] Nephrology and Hypertension [address] [place] [address], [address] [place] [address] Stevenson Penaloza MD [address] [facility], [address] [place] [address] Chronic kidney disease, Stage V (CMS-HCC) (Primary [...] well hydrated She was referred to kidney [facility] in June but covid prevented her from going. Will retry this. continue same dose of diuretics. She has some low back pain (below kidneys). See will she pcp about this. The patients BMI is too high. Try to lose weight. Consider seeing a loftsman/woman or PCP for help. She is thinking [...] CREATININE, URINE, RANDOM Routine 02/24/2020 10:55 AM AUTO WRECKER Chronic kidney disease, Stage V (CMS-HCC) VITAMIN D, 25-HYDROXY, SERUM Routine 02/24/2020 10:55 AM AUTO WRECKER Chronic kidney disease, Stage V (CMS-HCC) CBC (INCLUDES DIFFERENTIAL/PLATEL ETS) Routine 02/24/2020 10:55 AM AUTO WRECKER Chronic kidney disease, Stage V (CMS-HCC) RENAL FUNCTION PANEL (RFP) Routine 02/24/2020 10:55 AM AUTO WRECKER Chronic kidney disease, Stage V (CMS-HCC) HEPATITIS B SURFACE AB, QL, SERUM Routine 02/24/2020 10:55 AM AUTO WRECKER Chronic kidney disease, Stage V (CMS-HCC) PTH INTACT W/O CALCIUM, SERUM Routine 02/24/2020 10:55 AM AUTO WRECKER Chronic kidney disease, Stage V (CMS-HCC) documented in this encounter Results * Vitamin D, 25-Hydroxy, Serum (02/24/2020 10:55 AM AUTO WRECKER) Calcidiol, Serum/Plasma 42 30 - 100 ng/mL [facility] [place] (ST) Comment: Vitamin D Status ? 25-OH Vitamin D: Deficiency: ?<20 ng/mL Insufficiency: ? 20 - 29 ng/mL Optimal: ? > or = 30 ng/mL For 25-OH Vitamin D testing on patients on D2-supplementation and patients for whom quantitation of D2 and D3 fractions is required, the [facility]() 25-OH VIT D, (D2,D3), LC/MS/MS is recommended: order code 80471 (patients >2yrs). See Note 1 Note 1 For additional information, please refer to http://education.Quandoo.Programmr/faq/UMQ499 (This link is being provided for informational/ educational purposes only.) 02/24/2020 10:5 5 AM AUTO WRECKER 02/24/2020 10:56 AM AUTO WRECKER Narrative Resulting Agency Comment Performing Organization Information: ?Site ID: [id number] ?Name: [employer] [facility] ?Address: [facility] [place] [address] ?Director: Hal Arnold D.O. MPH Stevenson Penaloza MD LAB BLOOD ORDERABLES Performing Organization Address City/[facility]/ZIP Co de Phone Number [facility] [place] ([facility]) * Total Protein w/ Creatinine, Urine, Random (02/24/2020 10:55 AM AUTO WRECKER) Creatinine, Urine 88 20 - 275 mg/dL [...] & [place] (STL) 02/24/2020 10:5 5 AM AUTO WRECKER 02/24/2020 10:56 AM AUTO WRECKER Narrative Resulting Agency Comment Performing Organization Information: ?Site ID: [id number] ?Name: [employer] ?Address: [facility] [place] [address] ?Director: Hal Arnold D.O., MPH Stevenson Penaloza MD LAB URINE ORDERABLES Performing Organization Address City/[facility]/ZIP Co de Phone Number [facility] [place] ([facility]) * (ABNORMAL) Renal Function Panel (RFP) (02/24/2020 10:55 AM AUTO WRECKER) Glucose, Serum/Plasma 89 65 - 99 mg/dL [facility] [place] ([facility]) Comment: ? Fasting reference interval Urea nitrogen, Serum/Plasma (BUN) 24 7 - 25 mg/dL [facility] [place] ([facility]) Creatinine, Serum/Plasma 2.53(H) 0.60 - 0.93 mg/dL [facility] [place] (STL) Comment: For patients >49 years of age, the reference limit for Creatinine is approximately 13% higher for people identified as -Puerto Rican. eGFR, non 18(L) > OR = 60 mL/min/1. 73m2 [facility] [place] (STL) eGFR, 21(L) > OR = 60 mL/min/1. 73m2 [facility] [place] (ST[facility]) Urea nitrogen/Creatinin e, Serum/Plasma 9 6 - 22 (calc) [facility] [place] ([facility]) Sodium, Serum/Plasma 143 135 - 146 mmol/L [facility] [place] ([facility]) Potassium, Serum/Plasma 4.3 3.5 - 5.3 mmol/L [facility] [place] ([facility]) Chloride, Serum/Plasma 100 98 - 110 mmol/L [facility] [place] (ST[facility]) Carbon dioxide CO2), total, Serum/Plasma 36(H) 20 - 32 mmol/L [facility] [place] ([facility]) Calcium, Serum/Plasma 9.4 8.6 - 10.4 mg/dL [facility] [place] ([facility]) Phosphate, Serum/Plasma 4.3 2.1 - 4.3 mg/dL [facility] [place] ([facility]) Albumin, Serum/Plasma 4.0 3.6 - 5.1 g/dL [facility] [place] ([facility]) Blood 02/24/2020 10:5 5 AM AUTO WRECKER 02/24/2020 10:56 AM AUTO WRECKER Narrative Resulting Agency Comment Performing Organization Information: ?Site ID: [place] ?Name: [facility] ?Address: [facility] [address] [address] ?Director: Hal Arnold D.O., MPH Stevenson Penaloza MD LAB BLOOD ORDERABLES Performing Organization Address [facility]/ZIP Co de Phone Number [facility] * (ABNORMAL) PTH Intact w/o Calcium, Serum (02/24/2020 10:55 AM AUTO WRECKER) PTH, Intact, Serum/Plasma 275(H) 14 - 64 pg/mL [facility] [place] ([facility]) Comment: Interpretive Guide ?Intact PTH ? Calcium ? ------- Normal Parathyroid ?Normal ? Normal Hypoparathyroidism ?Low or Low Normal ?Low Hyperparathyroidism ?? Primary ?Normal or High ? High ?? Secondary ?High ? Normal or Low ?? Tertiary ? High ? High Non-Parathyroid ?? Hypercalcemia ?Low or Low Normal ?High Blood 02/24/2020 10:5 5 AM AUTO WRECKER 02/24/2020 10:56 AM AUTO WRECKER Narrative Resulting Agency Comment Performing Organization Information: ?Site ID: [place] ?Name: [employer] ?Address: [address] [address] ?Director: Hal Arnold D.O., ANY Stevenson Penaloza MD LAB BLOOD ORDERABLES Performing Organization Address [facility]/ZIP Co de Phone Number [facility] ([facility]) * Hepatitis B Surface AB, QL, Serum (02/24/2020 10:55 AM AUTO WRECKER) Pathologist [facility] Hepatitis B virus surface Ab, Serum NON-REACTI VE NON-REACTI VE [facility] [place] ([facility]) Blood 02/24/2020 10:5 5 AM AUTO WRECKER 02/24/2020 10:56 AM AUTO WRECKER Narrative Resulting Agency Comment Performing Organization Information: ?Site ID: [place] ?Name: [facility] ?Address: [facility] [place] [address] ?Director: Hal Arnold D.O., MPH Stevenson Penaloza MD LAB BLOOD ORDERABLES [facility] [place] ([facility]) * CBC (includes Differential/Platelets) (02/24/2020 10:55 AM AUTO WRECKER) [facility] Leukocytes, Blood 6.7 3.8 - 10.8 Thousand/u [...] [place] (STL) Blood 02/24/2020 10:5 5 AM AUTO WRECKER 02/24/2020 10:56 AM AUTO WRECKER Narrative Resulting Agency Comment Performing Organization Information: ?Site ID: [place] ?Name: [facility] ?Address: [address] [place], [place] [address], [place] [address] ?Director: Hal Arnold D.O., MPH Stevenson Penaloza MD LAB BLOOD ORDERABLES [facility] [place] ([facility]) documented in this encounter Visit Diagnoses Diagnosis Chronic kidney disease, Stage V (CMS-HCC)- Primary Chronic kidney disease, Stage V documented in this encounter Care Teams Wireless Architect Relationship Specialty Start Date End Date Gaudencio Miranda MD [address] [place] [address] PCP - General Internal Medicine 01/14/19 documented as of this encounter
--- OUTSIDE RECORDS SUMMARY | 2024-03-07 17:30 | XMS_ITS | Encounter Summary ---
Author Organization [facility] Address [address] [place] [address]. [place], [place] [address] [place] [address] Care Team Providers Care Expander Name Role Phone Unavailable Primary Care Provider Unavailabl e Encounter Details Date Type Department Care Team (Late st Contact Info) Description 06/23/1992 [place] [address] , Generic Conversion, Social History Tobacco Use [...]
--- OUTSIDE RECORDS SUMMARY | 2024-03-07 17:30 | XMS_ITS | Encounter Summary ---
Author Organization [facility] Address [address] [address] Phone Care Team Providers Care Watch Caser Name Role Phone Gaudencio Miranda MD Primary Care Provider [phone] Encounter Details Date Type Department Care Team (Late st Contact Info) Description 05/31/2019 Telephone [facility] Nephrology and Hypertension [address] [facility], [address] [place] [address] Stevenson Penaloza MD [email or web address] [address], [address] [place] [address] Social History Tobacco Use Types Packs/Day Years [...] (STL) Comment: ??CULTURE, URINE, ROUTINE ?Micro Number: ?[id number] ??Test Status: ? Final ??Specimen Source: ?? URINE ??Specimen Quality: ??Adequate ??Result: ?Multiple organisms present, each less than 10,000 ? CFU/mL. These organisms, commonly found on ? external and internal genitalia, are considered ? to be colonizers. No further testing performed. 07/07/2019 10:3 2 AM CDT 07/07/2019 10:33 AM CDT Narrative Resulting Agency Comment Performing Organization Information: ?Site ID: [place] ?Name: [employer] ?Address: [address] [facility] [place] [address] ?Director: Hal Arnold D.O., MPH Stevenson Penaloza MD LAB BLOOD ORDERABLES [facility] (STL) documented in this encounter Visit Diagnoses Diagnosis Pyuria- Primary documented in this encounter Care Teams Watch Caser Relationship Specialty Start Date End Date Gaudencio Miranda MD [address] [place] [address] PCP - General Internal Medicine 01/14/19 documented as of this encounter
--- OUTSIDE RECORDS SUMMARY | 2024-03-07 17:30 | XMS_ITS | Encounter Summary ---
Author Organization [facility] Address [address] [place] [address] Phone Care Team Providers Care Ostomy Rn Name Role Phone Gaudencio Miranda MD Primary Care Provider [phone] Encounter Details Date Type Department Care Team (Late st Contact Info) Description 03/03/2021 Telephone [facility] Nephrology and Hypertension [address] [facility], [address] [place] [address] Therese Velez MA Social History Tobacco Use [...] CREATININE, URINE, RANDOM Routine 03/03/2021 12:18 PM HEAD OF ART Chronic kidney disease, Stage V (CMS-HCC) CBC (INCLUDES DIFFERENTIAL/PLATEL ETS) Routine 03/03/2021 12:18 PM HEAD OF ART Chronic kidney disease, Stage V (CMS-HCC) RENAL FUNCTION PANEL (RFP) Routine 03/03/2021 12:18 PM HEAD OF ART Chronic kidney disease, Stage V (CMS-HCC) PTH INTACT W/O CALCIUM, SERUM Routine 03/03/2021 12:18 PM HEAD OF ART Chronic kidney disease, Stage V (CMS-HCC) documented in this encounter Results * Total Protein w/ Creatinine, Urine, Random (03/03/2021 12:18 PM HEAD OF ART) Creatinine, Urine 46 20 - 275 mg/dL [facility] [place] ([facility]) Protein/Creatin ine, Urine 130 21 - 161 mg/g creat [facility] [place] ([facility]) Protein/Creatin ine, Urine 0.130 0.021 - 0.161 mg/mg creat [facility] [place] ([facility]) Protein, Urine 6 5 - 24 mg/dL [facility] [place] ([facility]) 03/03/2021 12:1 8 PM HEAD OF ART 03/03/2021 12:20 PM HEAD OF ART Narrative Resulting Agency Comment Performing Organization Information: ?Site ID: [id number] ?Name: [facility] ?Address: [address] [place] [id number] ?Director: Hal Arnold D.O., MPH Stevenson Penaloza MD LAB URINE ORDERABLES [facility] [place] ([facility]) * (ABNORMAL) Renal Function Panel (RFP) (03/03/2021 12:18 PM HEAD OF ART) Glucose, Serum/Plasma 135(H) 65 - 99 mg/dL [facility] [place] ([facility]) Comment: ? Fasting reference interval For someone without known diabetes, a glucose value >125 mg/dL indicates that they may have diabetes and this should be confirmed with a follow-up test. Urea nitrogen, Serum/Plasma (BUN) 38(H) 7 - 25 mg/dL [facility] [place] (ST[facility]) Creatinine, Serum/Plasma 2.14(H) 0.60 - 0.93 mg/dL [facility] [place] (ST[facility]) Comment: For patients >49 years of age, the reference limit for Creatinine is approximately 13% higher for people identified as -Cape Verdean. eGFR, non 22(L) > OR = 60 mL/min/1. 73m2 [facility] [place] (ST[facility]) eGFR, 26(L) > OR = 60 mL/min/1. 73m2 [facility] [place] (ST[facility]) Urea nitrogen/Creatinin e, Serum/Plasma 18 6 - 22 (calc) [facility] [place] (ST[facility]) Sodium, Serum/Plasma 141 135 - 146 mmol/L [facility] [place] ([facility]) Potassium, Serum/Plasma 3.8 3.5 - 5.3 mmol/L [facility] [place] (ST[facility]) Chloride, Serum/Plasma 97(L) 98 - 110 mmol/L [facility] [place] (ST[facility]) Carbon dioxide CO2), total, Serum/Plasma 36(H) 20 - 32 mmol/L [facility] [place] ([facility]) Calcium, Serum/Plasma 9.7 8.6 - 10.4 mg/dL [facility] [place] ([facility]) Phosphate, Serum/Plasma 3.4 2.1 - 4.3 mg/dL [facility] [place] ([facility]) Albumin, Serum/Plasma 3.9 3.6 - 5.1 g/dL [facility] [place] ([facility]) Blood 03/03/2021 12:1 8 PM HEAD OF ART 03/03/2021 12:20 PM HEAD OF ART Narrative Resulting Agency Comment Performing Organization Information: ?Site ID: [place] ?Name: [employer] ?Address: [address] [place] [address] ?Director: Hal Arnold D.O., MPH Stevenson Penaloza MD LAB BLOOD ORDERABLES Performing Organization Address [facility]/ZIP Co de Phone Number [facility] (ST) * (ABNORMAL) PTH Intact w/o Calcium, Serum (03/03/2021 12:18 PM HEAD OF ART) PTH, Intact, Serum/Plasma 109(H) 14 - 64 pg/mL [facility] (STL) Comment: Interpretive Guide ?Intact PTH ? Calcium ? ------- Normal Parathyroid ?Normal ? Normal Hypoparathyroidism ?Low or Low Normal ?Low Hyperparathyroidism ?? Primary ?Normal or High ? High ?? Secondary ?High ? Normal or Low ?? Tertiary ? High ? High Non-Parathyroid ?? Hypercalcemia ?Low or Low Normal ?High Blood 03/03/2021 12:1 8 PM HEAD OF ART 03/03/2021 12:20 PM HEAD OF ART Narrative Resulting Agency Comment Performing Organization Information: ?Site ID: [id number] ?Name: [facility] ?Address: [address] [address] ?Director: Hal Arnold D.O., MPH Stevenson Penaloza MD LAB BLOOD ORDERABLES Performing Organization Address [facility] Co de Phone Number [facility] [place] (STL) * CBC (includes Differential/Platelets) (03/03/2021 12:18 PM HEAD OF ART) [facility] Leukocytes, Blood 5.9 3.8 - 10.8 Thousand/u [...] [place] (STL) Blood 03/03/2021 12:1 8 PM HEAD OF ART 03/03/2021 12:20 PM HEAD OF ART Narrative Resulting Agency Comment Performing Organization Information: ?Site ID: [id number] ?Name: [facility] ?Address: [address] [place] [address] ?Director: Hal Arnold D.O., MPH Stevenson Penaloza MD LAB BLOOD ORDERABLES [facility] ([facility]) documented in this encounter Visit Diagnoses Diagnosis Chronic kidney disease, Stage V (CMS-HCC)- Primary Chronic kidney disease, Stage V documented in this encounter Care Teams Ostomy Rn Relationship Specialty Start Date End Date Gaudencio Miranda MD [address] [place] [address] PCP - General Internal Medicine 01/14/19 documented as of this encounter
--- OUTSIDE RECORDS SUMMARY | 2024-03-07 17:30 | XMS_ITS | Encounter Summary ---
Author Organization [facility] Address [address], [place] [address] Phone Care Team Providers Care Director East Coast Sales Name Role Phone Gaudencio Miranda MD Primary Care Provider [phone] Encounter Details Date Type Department Care Team (Late st Contact Info) Description 11/17/2019 Telephone [facility] [address] [facility], [address] [place] [address] Stevenson Penaloza MD [address] [facility], [address] [place] [address] Social History Tobacco Use Types Packs/Day Years [...] on filedocumented in this encounter Care Teams Director East Coast Sales Relationship Specialty Start Date End Date Gaudencio Miranda MD [address] [place] [address] PCP - General Internal Medicine 01/14/19 documented as of this encounter
--- OUTSIDE RECORDS SUMMARY | 2024-03-07 17:31 | XMS_ITS | Encounter Summary ---
Author Organization [facility] Healthcare Address [address] [place] [address] Care Team Providers Care Police Records Clerk Name Role Phone Gaudencio Miranda MD Primary Care Provider [phone] Herberth Rodgers MD Unavailable [phone] Reason for Referral * (Routine) - Closed Specialty Diagnoses / Procedures Referred By Contmarilee t Referred To Contact Diagnoses Pulmonary nodule Chronic obstructive pulmonary disease, unspecified COPD type (HCC) Procedures Pulmonary Function Test -[facility]; Full PFT in PFT Lab w/Stress Ox/6 Min Walk Test Padmini Trinh MD [address] [facility] [address] [place] [address] Phone: tel: fax: Referral ID Status Reason Start Date Expiration Date Visits Re quested Visits Authorized [id number] Closed 03/15/2021 04/14/2022 1 1 Reason for Visit * (Routine) - Closed Specialty Diagnoses / Procedures Referred By Contac t Referred To Contact Diagnoses Pulmonary nodule Chronic obstructive pulmonary disease, unspecified COPD type (HCC) Procedures Pulmonary Function Test -[facility]; Full PFT in PFT Lab w/Stress Ox/6 Min Walk Test Padmini Trinh MD [address] [facility] [address] [place] [address] Phone: tel: fax: Referral ID Status Reason Start Date Expiration Date Visits Re quested Visits Authorized [id number] Closed 03/15/2021 04/14/2022 1 1 Encounter Details Date Type Department Care Team (Latest Contact Info) Description 06/06/2021 1:00 PM CDT - 06/06/2021 11:59 PM CDT Hospital Encounter [facility] Respiratory [address] [place] [address] Pulmonary nodule; Chronic obstructive pulmonary disease, unspecified [...] on file Legal Sex Female 12:59 AM 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 Gender Identity Not on file Sexual Orientation [...] in this encounter Progress Notes * Keegan eDgroot - 06/06/2021 2:29 PM CDT 06/06/21 1410 [...] - 4.07 L 06/06/2021 2:05 PM CDT [facility] FVC PRE 1.40(L) 2.30 - 4.07 L 06/06/2021 2:05 PM CDT [facility] FEV1 POST 1.02(L) 1.76 - 3.11 L 06/06/2021 2:05 PM CDT [facility] FEV1 PRE 0.95(L) 1.76 - 3.11 L 06/06/2021 2:05 PM CDT [facility] [id number] 64.93 63.77 - 90.83 % 06/06/2021 2:05 PM CDT [facility] [id number] 67.57 63.77 - 90.83 % 06/06/2021 2:05 PM CDT [facility] SEQ69-96% POST 0.48(L) 0.88 - 3.01 L/s 06/06/2021 2:05 PM CDT [facility] FAQ40-70% PRE 0.49(L) 0.88 - 3.01 L/s 06/06/2021 2:05 PM CDT [facility] PEF POST 4.29(L) 4.76 - 7.73 L/s 06/06/2021 2:05 PM T [facility] PEF PRE 4.24(L) 4.76 - 7.73 L/s 06/06/2021 2:05 PM CDT [facility] FET 100% POST 8.96 sec 06/06/2021 2:05 PM CDT [facility] FET 100% PRE 7.58 sec 06/06/2021 2:05 PM CDT [facility] FIVC POST 1.60(L) 2.36 - 3.74 L 06/06/2021 2:05 PM CDT [facility] FIVC PRE 1.27(L) 2.36 - 3.74 L 06/06/2021 2:05 PM CDT [facility] FIF50% POST 2.26 L/s 06/06/2021 2:05 PM CDT [facility] FIF50% PRE 1.70 L/s 06/06/2021 2:05 PM CDT [facility] VCMAX N2 PRE 1.51(L) 2.36 - 3.74 L 06/06/2021 2:05 PM CDT [facility] TLC N2 PRE 2.96(L) 4.64 - 6.62 L 06/06/2021 2:05 PM CDT [facility] RV N2 PRE 1.45(L) 1.71 - 2.86 L 06/06/2021 2:05 PM CDT [facility] FRC N2 PRE 1.53 L 06/06/2021 2:05 PM CDT [facility] ERV N2 PRE 0.08(L) 0.66 - 0.66 L 06/06/2021 2:05 PM CDT [facility] IC N2 PRE 1.43(L) 2.39 - 2.39 L 06/06/2021 2:05 PM CDT [facility] DLCOc SB 9.82(L) 17.81 - 29.27 ml/(min*mm Hg) 06/06/2021 2:05 PM CDT [facility] DLCOc SB 9.82(L) 17.81 - 29.27 ml/(min*mm Hg) 06/06/2021 2:05 PM CDT [facility] VA 2.33(L) 5.48 - 5.48 L 06/06/2021 2:05 PM CDT [facility] DLCO/VA PRE 4.22 2.93 - 5.44 ml/(min*mm Hg*L) 06/06/2021 2:05 PM CDT [facility] DLCOc SB 4.22 2.93 - 5.44 ml/(min*mm Hg*L) 06/06/2021 2:05 PM CDT [facility] Anatomical Region Laterality Modality PFT [...] Correlate clinically. Ambulatory testing performed by another SOFTWARE SUPPORT TECHNICIAN. Results in Epic. Electronically signed by: Charli Musa [facility] Padmini Trinh MD PFT ORDERABLES Final Result documented in this encounter Visit Diagnoses Diagnosis Pulmonary nodule Other diseases of lung, not elsewhere classified Chronic obstructive pulmonary disease, unspecified COPD type (HCC) documented in this encounter Care Teams Police Records Clerk Relationship Specialty Start Date End Date Gaudencio Miranda MD [address] [place] [address] PCP - General 07/25/16 Herberth Rodgers MD [address] [facility] [address] [address] [address] Surgeon Surgery 02/24/21 documented as of this encounter
--- OUTSIDE RECORDS SUMMARY | 2024-03-07 17:31 | XMS_ITS | Clinical Summary ---
Author Organization [facility] Address [address] [place] [address] Care Team Providers Care Marine Consultant Name Role Phone Gaudencio Miranda MD Primary Care Provider [phone] Herberth Rodgers MD Unavailable [phone] Allergies Active Allergy Reactions Criticality Noted [...] unspecified COPD type ([facility]) Inhale 2 puffs every 4 [...] (12/23/2020): Added automatically from request for surgery [id number] Assessment & Plan (12/27/2020 10:51 AM CDT): [...] physician. Chronic kidney disease, stage V (CMS/[facility]) 2019 Assessment & Plan (03/28/2021 1:41 PM PIN STICKER): Impression: Patient with recent left brachial cephalic AV fistula creation on 02/24/2021. Unfortunately her AV fistula has thrombosed however her chronic kidney disease remains stable per patient report. She does have an upcoming appointment with her edge trimmer. I discussed further treatment with the patient and explained that she will need a AV graft creation when determine by her edge trimmer that she will require hemodialysis. Plan: Patient [...] Previous s urgery cancelled R/T possible CP. Piece Hand ruled out heart disease, testing negative. Lung [...] on file Legal Sex Female 12:59 AM PIN STICKER Gender Identity Not on file Sexual Orientation [...] 134.3 kg (296 lb) 05/03/2021 8:10 AM PIN STICKER Height 170.2 cm (5' 7 ) 05/28/2023 3:04 PM CDT Body Mass Index 46.36 05/03/2021 8:10 AM PIN STICKER Plan of Treatment Health Maintenance Due Date [...] 11/17/2016, 01/12/2014 Medical Devices Implanted Type Area Agriculture Scientist Device Identifier Shelf Expiration Date Model / Serial / Lot Plate-03/19/2004 Implanted:03/19 (Quantity not on file) Plate Cervical-T horacic Spine Insurance MEDICARE SOLUTIONS [place] [id number] MEDICARE SOLUTIONS MED[employer] [place] [id number] Advance Directives For more information, please contact: [phone] Documents on File Type Date Recorded Patient Power Transformer Repairer Expl anation Power of Carpenter Assistant Installer 01/13/2021 11:26 AM * Full Code (Latest Code Status on File) Date Activated Date Inactivated Comments 05/03/2021 10:25 AM 05/04/2021 4:42 AM * Full Code Date Activated Date Inactivated Comments 02/24/2021 8:02 PM 02/28/2021 12:11 AM Care Teams Marine Consultant Relationship Specialty Start Date End Date Gaudencio Miranda MD [address] [place] [address] PCP - General 07/25/16 Herberth Rodgers MD [address] [facility] [address] [address] Surgeon Surgery 02/24/21
--- OUTSIDE RECORDS SUMMARY | 2024-03-07 17:31 | XMS_ITS | Encounter Summary ---
Author Organization [facility] Healthcare Address [address] [place] [address] Care Team Providers Care Customer Insight Analyst Name Role Phone Gaudencio Miranda MD Primary Care Provider [phone] Herberth Rodgers MD Unavailable [phone] Reason for Referral * MRI/CAT/PET Scan (Routine) - Closed Specialty Diagnoses / Procedures Referred By Mallory valentino Referred To Contact Radiology Diagnoses Lung mass Procedures CT Lung Needle Biopsy Right Padmini Trinh MD [facility] [facility] [address] [place] [address] Phone: tel: fax: [address] [phone] Referral ID Status Reason Start Date Expiration Date Visits Re quested Visits Authorized [id number] Closed 04/08/2021 05/08/2022 1 1 STOCK HAULIER Reason for Visit * MRI/CAT/PET Scan (Routine) - Closed Specialty Diagnoses / Procedures Referred By Mallory valentino Referred To Contact Radiology Diagnoses Lung mass Procedures CT Lung Needle Biopsy Right Padmini Trinh MD [address] [facility] [address] [place] [address] Phone: tel: fax: [address] [phone] Referral ID Status Reason Start Date Expiration Date Visits Re quested Visits Authorized [id number] Closed 04/08/2021 05/08/2022 1 1 Encounter Details Date Type Department Care Team (Latest Contact Info) Description 05/03/2021 7:13 AM LIVESTOCK HAULIER - 05/03/2021 11:51 AM LIVESTOCK HAULIER Hospital Encounter [facility] [address] [place] [address] Rn, Mhb Rad Lung mass; Shortness of [...] on file Legal Sex Female 12:59 AM LIVESTOCK HAULIER Gender Identity Not on file Sexual Orientation Not on file documented as of this encounter Last Filed Vital Signs Vital Sign Reading Time Taken Comments Blood Pressure 139/58 05/03/2021 11:33 AM LIVESTOCK HAULIER Pulse 54 05/03/2021 11:33 AM LIVESTOCK HAULIER Temperature 36.2 ??C (97.1 ??F) 05/03/2021 8:10 AM CS T Respiratory Rate 20 05/03/2021 11:33 AM LIVESTOCK HAULIER Oxygen Saturation 93% 05/03/2021 11:33 AM LIVESTOCK HAULIER Inhaled Oxygen Concentration - - Weight 134.3 kg (296 lb) 05/03/2021 8:10 AM LIVESTOCK HAULIER Height 170.2 cm (5' 7 ) 05/03/2021 8:10 AM LIVESTOCK HAULIER Body Mass Index 46.36 05/03/2021 8:10 AM LIVESTOCK HAULIER documented in this encounter Discharge Instructions * Attachments The following attachments cannot be sent through Care Everywhere. * Needle Biopsy of the Lung (Discharge Care) (Senegalese) documented in this encounter Medications at Time [...] Diana Dolan RN - 05/03/2021 1:16 PM LIVESTOCK HAULIER AVS given to pt and prepared for discharge. No questions at this time. STOCK HAULIER * Perioperative Nursing Note - Diana Dolan RN - 05/03/2021 12:17 PM LIVESTOCK HAULIER Spoke with Marlee LOVE ab pt pain level and request for home pain med. stated that was ok to give. also reviewed Chest xray results and stated it was okay for pt to eat/drink and be D/C after 3 hour bed rest complete. STOCK HAULIER * Pre-Procedure Note - Autumn Whalen DO - 05/03/2021 10:00 AM LIVESTOCK HAULIER Interventional Radiology Preprocedure Note Indication for procedure: [...] 12/2020 Previous surgery cancelled R/T possible CP. Nail Artist ruled out heart disease, testing negative. ??? [...] CT guided right lower lobe nodule biopsy. STOCK HAULIER documented in this encounter Plan of Treatment Not on file documented as of this encounter Procedures Procedure Name Priority Date/Time Associated Diagnosis Comments XR CHEST 1 VIEW IP Routine 05/03/2021 12:12 PM LIVESTOCK HAULIER SURGICAL PATHOLOGY Routine 05/03/2021 10 :33 AM LIVESTOCK HAULIER Lung mass CT NEEDLE BIOPSY LUNG RIGHT Schedule Routine, Read Routine (OP Routine) 05/03/2021 10:31 AM LIVESTOCK HAULIER Lung mass DIFFERENTIAL AUTO Routine 05/03/2021 7:5 8 AM LIVESTOCK HAULIER Lung mass CBC WITH AUTO DIFFERENTIAL Routine 05/03/2021 7:58 AM LIVESTOCK HAULIER Lung mass APTT Routine 05/03/2021 7:57 AM LIVESTOCK HAULIER Lung mass Shortness of breath PROTIME-INR Routine 05/03/2021 7:57 AM LIVESTOCK HAULIER Lung mass Shortness of breath documented in this encounter Results * XR Chest 1 View (Portable) (05/03/2021 12:12 PM LIVESTOCK HAULIER) Anatomical Region Laterality Modality Body, Chest N/A Computed Radiogr aphy 05/03/2021 12:1 9 PM LIVESTOCK HAULIER Narrative 05/03/2021 12:21 PM LIVESTOCK HAULIER EXAM DESCRIPTION: ?? XR CHEST 1 VIEW [...] D: ??05/03/2021 12:21 PM T: Report ID: [id number] Reading Location: ??[id number] Procedure Note Autumn Whalen, DO - 05/03/2021 [...] Autumn Whalen D.O. PS T: Report ID: [id number] Reading Location: [id number] Autumn Whalen DO IMG XR PROCEDURES Final R esult * Surgical pathology (05/03/2021 10:33 AM LIVESTOCK HAULIER) Tissue (Lung Biopsy) 05/03/2021 9:39 AM LIVESTOCK HAULIER Narrative PATHOLOGY [facility] - 05/04/2021 9:57 AM LIVESTOCK HAULIER [facility] Department of Pathology [address] [place] [address] ?? Note to Patients: ??This report may [...] ??1950 (Age: 70) Gender: ??F Address: ??[address] [facility] [place], [place] ??[address] [facility] #: [id number] Service: DEFAULT Location: Patient Type: [facility] ANCILLARY ? Taken: 05/03/2021 Received: 05/03/2021 Accessioned: [...] LAB PATHOLOGY ORDERABLES Destiney odell Result PATHOLOGY [facility] * CT Lung Needle Biopsy Right (05/03/2021 10:31 AM LIVESTOCK HAULIER) Anatomical Region Laterality Modality Lung N/A Computed Tomogra phy, Computed Radiography 05/03/2021 10:4 0 AM LIVESTOCK HAULIER Addenda Addendum by Autumn Whalen DO on 05/04/2021 10:45 AM LIVESTOCK HAULIER ADDENDUM: This addendum report supersedes the original [...] D: ??05/04/2021 10:44 AM T: Report ID: [id number] Reading Location: ??[id number] Narrative 05/03/2021 10:50 AM LIVESTOCK HAULIER EXAM DESCRIPTION: ?? CT NEEDLE BIOPSY LUNG [...] D: ??05/03/2021 10:50 AM T: Report ID: [id number] Reading Location: ??[id number] Procedure Note Autumn Whalen, DO - 05/03/2021 [...] signed by Autumn KING T: Report ID: [id number] Reading Location: [place] [address] Padmini Trinh MD IMG CT PROCEDURES Edited Resu lt - Final * (ABNORMAL) Differential, auto (05/03/2021 7:58 AM LIVESTOCK HAULIER) Pathologist [facility] Neutrophil abs 8.6(H) 1.7 - 6.5 K/cumm [facility] Imm gran abs 0.0 0.0 - 0.1 K/cumm [facility] Lymphocyte abs 2.0 0.8 - 3.3 K/cumm [facility] Monocyte abs 1.3(H) 0.2 - 0.8 K/cumm [facility] Eosinophil abs 0.2 0.0 - 0.5 K/cumm [facility] Basophil abs 0.0 0.0 - 0.1 K/cumm [facility] Neutrophil pct 70.8 % [facility] Comment: Interpretive Data Percent cell count reference ranges are not reported, since discordance with absolute values may lead to misinterpretation of CBC data. Current Interpretive Data was last revised on 2017. Imm gran pct 0.3 % [facility] Comment: Interpretive Data Percent cell count reference ranges are not reported, since discordance with absolute values may lead to misinterpretation of CBC data. Current Interpretive Data was last revised on 2017. Lymphocyte pct 16.6 % [facility] Comment: Interpretive Data Percent cell count reference ranges are not reported, since discordance with absolute values may lead to misinterpretation of CBC data. Current Interpretive Data was last revised on 2017. Monocyte pct 10.3 % [facility] Comment: Interpretive Data Percent cell count reference ranges are not reported, since discordance with absolute values may lead to misinterpretation of CBC data. Current Interpretive Data was last revised on 2017. Eosinophil pct 1.8 % [facility] Comment: Interpretive Data Percent cell count reference ranges are not reported, since discordance with absolute values may lead to misinterpretation of CBC data. Current Interpretive Data was last revised on 2017. Basophil pct 0.2 % [facility] Comment: Interpretive Data Percent cell count reference ranges are not reported, since discordance with absolute values may lead to misinterpretation of CBC data. Current Interpretive Data was last revised on 2017. Blood 05/03/2021 7:58 AM LIVESTOCK HAULIER 05/03/2021 8:01 AM LIVESTOCK HAULIER Padmini Trinh MD LAB BLOOD ORDERABLES Final Re sult Performing Organization Address [facility]/ZIP Co de Phone Number [address] [employer] [address] * (ABNORMAL) CBC with auto differential (05/03/2021 7:58 AM LIVESTOCK HAULIER) WBC 12.2(H) 3.8 - 9.9 K/cumm [facility] Hgb 13.8 11.9 - 15.5 g/dL [facility] Hct 42.6 35.6 - 45.5 % [facility] Plt 181 150 - 400 K/cumm [facility] MPV 10.7 9.1 - 12.3 fL [facility] RBC 4.40 3.90 - 5.20 M/cumm [facility] MCV 96.8(H) 81.3 - 96.4 fL [facility] MCH 31.4 27.1 - 33.3 pg [facility] MCHC 32.4 32.3 - 35.7 g/dL [facility] RDW CV 12.8 11.1 - 14.9 % [facility] RDW SD 46.3 35.7 - 48.1 fL [facility] NRBC abs 0.00 0.00 - 0.01 K/cumm [facility] Blood 05/03/2021 7:58 AM LIVESTOCK HAULIER 05/03/2021 8:01 AM LIVESTOCK HAULIER Padmini Trihn MD LAB BLOOD ORDERABLES Final Re sult Performing Organization Address City/[facility]/ZIP Co de Phone Number [facility] [address] [place] [address] * Protime-INR (05/03/2021 7:57 AM LIVESTOCK HAULIER) PT 13.9 12.0 - 14.6 sec [facility] INR 1.1 0.9 - 1.2 [facility] Comment: Ref Range High Interpretive data Oral anticoagulant therapeutic ranges: Venous thromboembolism prophylaxis or treatment: 2.0-3.0 CARDIOLOGY Standard range: 2.0-3.0 High-intensity range: 2.5-3.5 Refer to indication-specific guidelines for appropriate target ranges for prosthetic heart valve replacement. Current interpretive data was last revised on 2019. Blood 05/03/2021 7:57 AM LIVESTOCK HAULIER 05/03/2021 8:01 AM LIVESTOCK HAULIER Padmini Trinh MD LAB BLOOD ORDERABLES Final Re sult Performing Organization Address [facility] Co de Phone Number [place] [address] [place] [address] * aPTT (05/03/2021 7:57 AM LIVESTOCK HAULIER) aPTT 36 22 - 37 sec SIMON Comment: Interpretive data aPTT test has not been evaluated for monitoring heparin therapy. The anti-Xa is the preferred test. Current interpretive data was last revised on 2019. Blood 05/03/2021 7:57 AM LIVESTOCK HAULIER 05/03/2021 8:01 AM LIVESTOCK HAULIER Padmini Trinh MD LAB BLOOD ORDERABLES Final Re sult Performing Organization Address City/[facility] Co de Phone Number [place] [address] [place] [address] documented in this encounter Visit Diagnoses Diagnosis Lung mass Swelling, mass, or lump in chest Shortness of breath Shortness of breath documented in this encounter Administered Medications Inactive Administered Medications - up to 3 most recent administrations Medication Order MAR Action Action Date Dose Rate Site fentaNYL (SUBLIMAZE) preservative free injection intravenous, Code/trauma/sedation medication, Starting on Sun05/03/21 at 0950 Given 05/03/2021 9:50 AM LIVESTOCK HAULIER 50 mcg Right Forearm HYDROcodone-acetaminophen (NORCO) 5-325 mg per tablet 1 tablet 1 tablet, oral, Once, On Sun05/03/21 at 1300, For 1 dose, Indications: PainIndications:Pain Given 05/03/2021 12:49 PM LIVESTOCK HAULIER 1 tablet midazolam (VERSED) 1 mg/mL preservative free injection intravenous, Administer over 2 Minutes, Code/trauma/sedation medication, Starting on Sun05/03/21 at 0950, Intra-Procedure (IR) Given 05/03/2021 9:50 AM LIVESTOCK HAULIER 0.5 mg Right Forearm documented in this [...] 05/03/2021 documented in this encounter Care Teams Customer Insight Analyst Relationship Specialty Start Date End Date Gaudencio Miranda MD [address] [place] [address] PCP - General 07/25/16 Herberth Rodgers MD [address] [facility] [address] [address] Surgeon Surgery 02/24/21 documented as of this encounter
--- OUTSIDE RECORDS SUMMARY | 2024-03-07 17:31 | XMS_ITS | Encounter Summary ---
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 Pt currently has home O2 with [employer]. Will update order during f/u appt which is scheduled for 05/27. TENANCE MECHANIC documented in this encounter Plan of Treatment Not on file documented as of this encounter Visit Diagnoses Not on filedocumented in this encounter Care Teams Vp Customer Development Relationship Specialty Start Date End Date Gaudencio Miranda MD [address] [place] [address] PCP - General 07/25/16 Herberth Rodgers MD [address] [facility] [address] [address] Surgeon Surgery 02/24/21 documented as of this encounter
--- OUTSIDE RECORDS SUMMARY | 2024-03-07 17:31 | XMS_ITS | Encounter Summary ---
Author Organization [facility] Healthcare Address [address] [place] [address] Care Team Providers Care Family Law Specialist Name Role Phone Gaudencio Miranda MD Primary Care Provider [phone] Herberth Rodgers MD Unavailable [phone] Reason for Referral * Procedure (Routine) - Closed Specialty Diagnoses / Procedures Referred By Mallory t Referred To Contact Diagnoses Chronic obstructive pulmonary disease, unspecified COPD type (HCC) Procedures Pulmonary Function Test -[facility]; Full PFT in PFT Lab w/Stress Ox/6 Min Walk Test Padmini Trinh MD [facility] [address] [place] [address] Phone: tel: fax: Referral ID Status Reason Start Date Expiration Date Visits Re quested Visits Authorized [id number] Closed 12/12/2021 01/11/2023 1 1 Reason for Visit * Procedure (Routine) - Closed Specialty Diagnoses / Procedures Referred By Contac t Referred To Contact Diagnoses Chronic obstructive pulmonary disease, unspecified COPD type (HCC) Procedures Pulmonary Function Test -[facility]; Full PFT in PFT Lab w/Stress Ox/6 Min Walk Test Padimni Trinh MD [address] [facility] [address] [place] [address] Phone: tel: fax: Referral ID Status Reason Start Date Expiration Date Visits Re quested Visits Authorized [id number] Closed 12/12/2021 01/11/2023 1 1 Encounter Details Date Type Department Care Team (Latest Contact Info) Description 06/22/2022 1:54 PM CDT - 06/22/2022 11:59 PM CDT Hospital Encounter [facility] Respiratory Therapy [address] [place] [address] Chronic obstructive pulmonary disease, unspecified COPD type [...] on file Legal Sex Female 12:59 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 Gender Identity Not on file Sexual [...] - 4.06 L 06/22/2022 2:57 PM CDT [facility] FVC PRE 2.00(L) 2.26 - 4.06 L 06/22/2022 2:57 PM CDT [facility] FEV1 POST 1.57(L) 1.72 - 3.04 L 06/22/2022 2:57 PM CDT [facility] FEV1 PRE 1.52(L) 1.72 - 3.04 L 06/22/2022 2:57 PM CDT [facility] [id number] 74.46 63.52 - 89.00 % 06/22/2022 2:57 PM CDT [facility] [id number] 76.23 63.52 - 89.00 % 06/22/2022 2:57 PM CDT [facility] EZI11-59% POST 1.17 0.85 - 3.43 L/s 06/22/2022 2:57 PM CDT [facility] OPF41-35% PRE 0.86 0.85 - 3.43 L/s 06/22/2022 2:57 PM CDT [facility] PEF POST 5.17 4.72 - 7.68 L/s 06/22/2022 2:57 PM CDT [facility] PEF PRE 4.96 4.72 - 7.68 L/s 06/22/2022 2:57 PM CDT [facility] FET 100% POST 6.19 sec 06/22/2022 2:57 PM CDT [facility] FET 100% PRE 6.91 sec 06/22/2022 2:57 PM CDT [facility] FIVC POST 1.83(L) 2.33 - 3.71 L 06/22/2022 2:57 PM CDT [facility] FIVC PRE 1.77(L) 2.33 - 3.71 L 06/22/2022 2:57 PM CDT [facility] FIF50% POST 2.21 L/s 06/22/2022 2:57 PM CDT [facility] FIF50% PRE 2.50 L/s 06/22/2022 2:57 PM CDT [facility] DLCOc SB 12.12(L) 17.59 - 29.06 ml/(min*mm Hg) 06/22/2022 2:57 PM CDT [facility] VA 3.09(L) 5.46 - 5.46 L 06/22/2022 2:57 PM CDT [facility] DLCO/VA PRE 3.93 2.90 - 5.42 ml/(min*mm Hg*L) 06/22/2022 2:57 PM CDT [facility] IC SB 1.53(L) 2.37 - 2.37 L 06/22/2022 2:57 PM CDT [facility] VC PRE 1.78(L) 2.33 - 3.71 L 06/22/2022 2:57 PM CDT [facility] TLC PRE 4.24(L) 4.62 - 6.60 L 06/22/2022 2:57 PM CDT [facility] RV PRE 2.47 1.72 - 2.87 L 06/22/2022 2:57 PM CDT [facility] FRC PL PRE 2.71 2.12 - 3.76 L 06/22/2022 2:57 PM T [facility] ERV PRE 0.24(L) 0.65 - 0.65 L 06/22/2022 2:57 PM CDT [facility] IC PRE 1.53(L) 2.37 - 2.37 L 06/22/2022 2:57 PM T [facility] RAW PRE 6.75(H) 3.06 - 3.06 cmH2O*s/L 06/22/2022 2:57 PM CDT [facility] BF RES 18.39 BPM 06/22/2022 2:57 PM T [facility] Anatomical Region Laterality Modality PFT [...] inhaler 2 puff 2 puff, inhalation, Once (therapeutic support staff), On Bernarda 06/22/22 at 1415, For 1 dose Given 06/22/2022 2:15 PM CDT 2 puffs documented in this encounter Orders Medications Ordered That Regan ht Not Have Been Administered Count Last Ordered Date First Ordered Date albuterol HFA (PROVENTIL HFA ,VENTOLIN HFA,PROAIR HFA) 90 mcg/actuation inhaler 2 puff 1 06/22/2022 documented in this encounter Care Teams Family Law Specialist Relationship Specialty Start Date End Date Gaudencio Miranda MD [address] [place] [address] PCP - General 07/25/16 Herberth Rodgers MD [address] [facility] [address] [place] [address] Surgeon Surgery 02/24/21 documented as of this encounter
--- OUTSIDE RECORDS SUMMARY | 2024-03-07 17:31 | XMS_ITS | Encounter Summary ---
Author Organization [facility] Medical Group Address [address] [place] [address] Care Team Providers Care Manager Ambulatory Name Role Phone Gaudencio Miranda MD Primary Care Provider [phone] Herberth Rodgers MD Unavailable [phone] Reason for Referral * MRI/CAT/PET Scan (Routine) - Closed Specialty Diagnoses / Procedures Referred By Mallory valentino Referred To Contact Radiology Diagnoses Pulmonary nodule Procedures PET/CT FDG Skull to Thigh Padmini Trinh MD [address] [facility] [address] [place] [address] Phone: tel: fax: [facility] [address] [place] [address] Referral ID Status Reason Start Date Expiration Date Visits Re quested Visits Authorized [id number] Closed 03/16/2021 04/30/2021 2 2 TROPHYSIOLOGIST * (Routine) - Closed Specialty Diagnoses / Procedures Referred By Mallory valentino Referred To Contact Diagnoses Pulmonary nodule Chronic obstructive pulmonary disease, unspecified COPD type (HCC) Procedures Pulmonary Function Test -[facility]; Full PFT in PFT Lab w/Stress Ox/6 Min Walk Test Padmini Trinh MD [address] [facility] [address] [place] [address] Phone: tel: fax: Referral ID Status Reason Start Date Expiration Date Visits Re quested Visits Authorized [id number] Closed 03/15/2021 04/14/2022 1 1 TROPHYSIOLOGIST Reason for Visit * Reason Comments New Patient hospital follow up Encounter Details Date Type Department Care Team (Late st Contact Info) Description 03/15/2021 9:45 AM ELECTROPHYSIOLOGIST Office Visit [facility] Pulmonology [address] [facility] [address] [place] [address] Padmini Trinh MD [address] [facility] [address] [place] [address] Pulmonary nodule (Primary Dx); Chronic obstructive pulmonary disease, unspecified COPD type (HCC); Lung mass; Heart failure with preserved left ventricular function (HFpEF) (CMS/HCC) ([facility]); Non-seasonal allergic rhinitis due to other allergic trigger; Class 3 severe obesity due to excess calories with serious comorbidity and body mass index (BMI) of 45.0 to 49.9 in adult ([facility]); FELISHA (obstructive sleep apnea); Restrictive lung disease; Chronic respiratory failure with hypoxia and hypercapnia (CMS/HCC) ([facility]) Social History Tobacco Use Types [...] on file Legal Sex Female 12:59 AM ELECTROPHYSIOLOGIST Gender Identity Not on file Sexual Orientation Not on file documented as of this encounter Last Filed Vital Signs Vital Sign Reading Time Taken Comments Blood Pressure 121/79 03/15/2021 9:19 AM ELECTROPHYSIOLOGIST Pulse - - Temperature 36.6 ??C (97.8 ??F) 03/15/2021 9:19 AM CS T Respiratory Rate 18 03/15/2021 9:19 AM ELECTROPHYSIOLOGIST Oxygen Saturation - - Inhaled Oxygen Concentration - - Weight - - Height 170.2 cm (5' 7 ) 03/15/2021 9:19 AM ELECTROPHYSIOLOGIST Body Mass Index - - documented in [...] exertional oxygen. Has yearly allergic rhinitis. Takes hcerrie and phenylephrine nasal spray. Has GERD. HPI: Patient is a 70 y.o. female w/ PMH of CKD 5, h/o COPD, obesity his issues seen on hospital in [facility] 2020 for postop hypoxia. She initially presented [...] spent prior to the visit, during the visit/kcft-lh-rtto time, and after the visit in direct care of the patient. This time does not include time spent in any separately reportable services. Padmini Trinh MD Pulmonary Medicine There may be syntax/grammatical errors in this note due to the use of voice recognition software. TROPHYSIOLOGIST TROPHYSIOLOGIST documented in this encounter Plan of Treatment Not on file documented as of this encounter Results * (ABNORMAL) Pulmonary Function Test - (06/06/2021 2:04 PM CDT) FVC POST 1.57(L) 2.30 - 4.07 L 06/06/2021 2:05 PM CDT [facility] FVC PRE 1.40(L) 2.30 - 4.07 L 06/06/2021 2:05 PM CDT [facility] FEV1 POST 1.02(L) 1.76 - 3.11 L 06/06/2021 2:05 PM CDT [facility] FEV1 PRE 0.95(L) 1.76 - 3.11 L 06/06/2021 2:05 PM CDT [facility] [id number] 64.93 63.77 - 90.83 % 06/06/2021 2:05 PM CDT [facility] HQU1FGX-UHA 67.57 63.77 - 90.83 % 06/06/2021 2:05 PM CDT [facility] RNE00-97% POST 0.48(L) 0.88 - 3.01 L/s 06/06/2021 2:05 PM CDT [facility] PMM37-60% PRE 0.49(L) 0.88 - 3.01 L/s 06/06/2021 2:05 PM CDT [facility] PEF POST 4.29(L) 4.76 - 7.73 L/s 06/06/2021 2:05 PM CDT [facility] PEF PRE 4.24(L) 4.76 - 7.73 L/s 06/06/2021 2:05 PM CDT [facility] FET 100% POST 8.96 sec 06/06/2021 2:05 PM CDT [facility] FET 100% PRE 7.58 sec 06/06/2021 2:05 PM CDT [facility] FIVC POST 1.60(L) 2.36 - 3.74 L 06/06/2021 2:05 PM CDT [facility] FIVC PRE 1.27(L) 2.36 - 3.74 L 06/06/2021 2:05 PM CDT [facility] FIF50% POST 2.26 L/s 06/06/2021 2:05 PM CDT [facility] FIF50% PRE 1.70 L/s 06/06/2021 2:05 PM CDT [facility] VCMAX N2 PRE 1.51(L) 2.36 - 3.74 L 06/06/2021 2:05 PM CDT [facility] TLC N2 PRE 2.96(L) 4.64 - 6.62 L 06/06/2021 2:05 PM CDT [facility] RV N2 PRE 1.45(L) 1.71 - 2.86 L 06/06/2021 2:05 PM CDT [facility] FRC N2 PRE 1.53 L 06/06/2021 2:05 PM CDT [facility] ERV N2 PRE 0.08(L) 0.66 - 0.66 L 06/06/2021 2:05 PM CDT [facility] IC N2 PRE 1.43(L) 2.39 - 2.39 L 06/06/2021 2:05 PM CDT [facility] DLCOc SB 9.82(L) 17.81 - 29.27 ml/(min*mm Hg) 06/06/2021 2:05 PM CDT [facility] DLCOc SB 9.82(L) 17.81 - 29.27 ml/(min*mm Hg) 06/06/2021 2:05 PM CDT [facility] VA 2.33(L) 5.48 - 5.48 L 06/06/2021 2:05 PM CDT [facility] DLCO/VA PRE 4.22 2.93 - 5.44 ml/(min*mm Hg*L) 06/06/2021 2:05 PM CDT [facility] DLCOc SB 4.22 2.93 - 5.44 ml/(min*mm Hg*L) 06/06/2021 2:05 PM T [facility] Anatomical Region Laterality Modality PFT 06/06/2021 1:12 [...] Correlate clinically. Ambulatory testing performed by another SPRAY DRY OPERATOR. Results in [facility]. Electronically signed by: Charli Holden Padmini Trinh MD PFT ORDERABLES Final Result * PET/CT FDG Skull to Thigh (03/24/2021 1:51 PM ELECTROPHYSIOLOGIST) Anatomical Region Laterality Modality N/A Positron Emissio n Tomography (PET) 03/24/2021 1:59 PM ELECTROPHYSIOLOGIST Narrative 03/24/2021 2:54 PM ELECTROPHYSIOLOGIST EXAM DESCRIPTION: ?? PET/CT FDG SKULL TO [...] PM T: ??03/24/2021 2:54 PM Report ID: [id number] Reading Location: ??[id number] Procedure Note Elie Braswell MD - 03/24/2021 [...] Elie Braswell M.D. LB: MARGIE Report ID: [id number] Reading Location: [place] [address] [place] Padmini Trinh MD IMG PET PROCEDURES [...] Chronic obstructive pulmonary disease, unspecified COPD type ([facility]) documented in this encounter Historical Medications * This list may reflect changes made after this encounter. albuterol HFA (PROVENTIL HFA,VENTOLIN HFA,PROAIR HFA) 90 mcg/actuation inhaler 2 puffs every 4 (four) hours as needed 02/27/2021 05/03/2021 added in this encounter Care Teams Manager Ambulatory Relationship Specialty Start Date End Date Gaudencio Miranda MD [address] [place] [address] PCP - General 07/25/16 Herberth Rodgers MD [address] [facility] [address] [address] Surgeon Surgery 02/24/21 documented as of this encounter
--- OUTSIDE RECORDS SUMMARY | 2024-03-07 17:31 | XMS_ITS | Encounter Summary ---
Author Organization [facility] Address [address] [place] [address] Care Team Providers Care Cook Helper Dessert Name Role Phone Gaudencio Miranda MD Primary Care Provider [phone] Herberth Rodgers MD Unavailable [phone] Reason for Referral * MRI/CAT/PET Scan (Routine) - Closed Specialty Diagnoses / Procedures Referred By Contac t Referred To Contact Radiology Diagnoses Lung mass Procedures CT Chest WO Contrast Padmini Trinh MD [address] [place] [address] [address] [place] [address] Phone: tel: fax: [address] [address] Referral ID Status Reason Start Date Expiration Date Visits Re quested Visits Authorized [id number] Closed 07/11/2021 08/10/2022 1 1 Reason for Visit * Reason Comments Follow-up Encounter Details Date Type Department Care Team (Late st Contact Info) Description 07/11/2021 4:00 PM CDT Office Visit [facility] Pulmonology [address] [facility] [address] [place] [address] Padmini Trinh MD [address] [facility] [address] [place] [address] Chronic obstructive pulmonary disease, unspecified COPD type (HCC) (Primary Dx); Lung mass; Non-seasonal allergic rhinitis due to other allergic trigger; Class 3 severe obesity due to excess calories with serious comorbidity and body mass index (BMI) of 45.0 to 49.9 in adult ([facility]); Heart failure with preserved left ventricular function (HFpEF) (CMS/HCC) ([facility]); Chronic respiratory failure with hypoxia and hypercapnia (CMS/HCC) ([facility]); Restrictive lung disease; Muscular deconditioning Social History [...] on file Legal Sex Female 12:59 AM FISHER MUSSEL Gender Identity Not on file Sexual Orientation [...] his issues seen on hospital in [facility] 2020 for postop hypoxia. She [...] the visit reviewing chart/results/previous evaluation, during the visit/etpk-bt-molx time, and after the visit in direct [...] ??Recent guidelines by the Fleischner Society (Radiology 590475,2017) divides patient into low vs. high risk [...] immunosuppression, or patients with known primary cancer. http://pubs.rsna.org/doi/pdf/10.1148/radiol.4239078007 THIS IS AN ELECTRONICALLY VERIFIED FINAL REPORT 11/20/2021 1:41 PM - Electronically signed by ??Matthias Redd M.D. RW: SOFIA D: ??11/20/2021 1:41 PM T: ??11/20/2021 1:41 PM Report ID: [id number] Reading Location: ??[id number] Procedure Note Matthias Redd MD - 11/20/2021 [...] Recent guidelines by the Fleischner Society (Radiology 707870,2017)divides patient into low vs. high risk (for [...] immunosuppression, or patients with known primary cancer. http://pubs.rsna.org/doi/pdf/10.1148/radiol.6522390287 THIS IS AN ELECTRONICALLY VERIFIED FINAL REPORT 11/20/2021 1:41 PM - Electronically signed by Matthias Redd M.D. RW: SOFIA Report ID: [id number] Reading Location: [place] [address] [place] Padmini Trinh MD IMG CT PROCEDURES [...] chest documented in this encounter Care Teams Cook Helper Dessert Relationship Specialty Start Date End Date Gaudencio Miranda MD [address] [place] [address] PCP - General 07/25/16 Herberth Rodgers MD [address] [facility] [address] [address] Surgeon Surgery 02/24/21 documented as of this encounter
--- OUTSIDE RECORDS SUMMARY | 2024-03-07 17:31 | XMS_ITS | Encounter Summary ---
Author Organization [facility] Healthcare Address [address] [place] [address] Care Team Providers Care Cream Beater Name Role Phone Gaudencio Miranda MD Primary Care Provider [phone] Herberth Rodgers MD Unavailable [phone] Reason for Referral * Procedure (Routine) - Closed Specialty Diagnoses / Procedures Referred By Contac t Referred To Contact Diagnoses Chronic obstructive pulmonary disease, unspecified COPD type (HCC) Chronic respiratory failure with hypoxia and hypercapnia (CMS/HCC) (HCC) Procedures Pulmonary Function Test -[facility]; Full PFT in PFT Lab w/Stress Ox/6 Min Walk Test Padmini Trinh MD [facility] [address] [address] Phone: tel: fax: Referral ID Status Reason Start Date Expiration Date Visits Re quested Visits Authorized [id number] Closed 11/27/2022 12/27/2023 1 1 REEL OPERATOR HELPER Reason for Visit * Procedure (Routine) - Closed Specialty Diagnoses / Procedures Referred By Contac t Referred To Contact Diagnoses Chronic obstructive pulmonary disease, unspecified COPD type (HCC) Chronic respiratory failure with hypoxia and hypercapnia (CMS/HCC) (HCC) Procedures Pulmonary Function Test -[facility]; Full PFT in PFT Lab w/Stress Ox/6 Min Walk Test Padmini Trinh MD [address] [facility] [address] [place] [address] Phone: tel: fax: Referral ID Status Reason Start Date Expiration Date Visits Re quested Visits Authorized [id number] Closed 11/27/2022 12/27/2023 1 1 Encounter Details Date Type Department Care Team (Latest Contact Info) Description 05/18/2023 1:00 PM DYE REEL OPERATOR HELPER - 05/18/2023 11:59 PM DYE REEL OPERATOR HELPER Hospital Encounter [facility] Respiratory [address] [place] [address] Chronic obstructive pulmonary disease, unspecified COPD type [...] on file Legal Sex Female 12:59 AM DYE REEL OPERATOR HELPER Gender Identity Not on file Sexual Orientation [...] this encounter Progress Notes * Kristen Sosa, HALAL MEAT PACKER - 05/18/2023 1:05 PM CST PATIENT NON-AMBULATORY. PATIENT IS A FALL RISK: YELLOW BAND IN PLACE. TEST WAS PERFORMED WITH PATIENT EXERCISING ARMS AND LEGS WHILE SEATED IN WHEELCHAIR. PATIENT REQUIRED 1L/M NASAL CANNULA AT REST AND 2L/M NC WITH EXERTION PATIENT WEARS HOME OXYGEN - ARISTIDES IRIZARRYIED 05/18/23 9870 Resting Information Resting HR. 60 bpm Resting [...] WITH ACTIVITY $ Home O2 Assessment Yes REEL OPERATOR HELPER documented in this encounter Plan of Treatment Not on file documented as of this encounter Procedures Procedure Name Priority Date/Time Associated Diagnosis Comments PULMONARY FUNCTION TEST (PFT) Routine 05/18/2023 2:05 PM DYE REEL OPERATOR HELPER Chronic obstructive pulmonary disease, unspecified COPD type (HCC) Chronic respiratory failure with hypoxia and hypercapnia (CMS/HCC) (HCC) documented in this encounter Results * Pulmonary Function Test - (05/18/2023 2:05 PM DYE REEL OPERATOR HELPER) FVC POST 2.01 L 05/18/2023 4:57 PM [facility] FEV1 POST 1.41 L 05/18/2023 4:57 PM [facility] [id number] 69.95 % 05/18/2023 4:57 PM [facility] QLM12-76% POST 0.81 L/s 05/18/2023 4:57 PM [facility] PEF POST 3.69 L/s 05/18/2023 4:57 PM [facility] DLCOc SB 13.19 ml/(min*mm Hg) 05/18/2023 4:57 PM [facility] DLCO/VA PRE 4.32 ml/(min*mm Hg*L) 05/18/2023 4:57 PM [facility] VA 3.06 L 05/18/2023 4:57 PM [facility] FVC PRE 1.92 L 05/18/2023 4:57 PM [facility] FEV1 PRE 1.33 L 05/18/2023 4:57 PM [facility] [id number] 69.04 % 05/18/2023 4:57 PM [facility] SUM44-00% PRE 0.73 L/s 05/18/2023 4:57 PM [facility] PEF PRE 4.86 L/s 05/18/2023 4:57 PM [facility] Anatomical Region Laterality Modality PFT 05/18/2023 1:08 PM DYE REEL OPERATOR HELPER Impressions 05/23/2023 3:30 PM DYE REEL OPERATOR HELPER Nonspecific ventilatory limitation suggestive of obstruction. ??Severe air trapping. ??Decreased uncorrected DLCO Electronically signed by Padmini Belcher 05/23/2023 3:30 PM DYE REEL OPERATOR HELPER INTERPRETATION Please see technologist's comments mentioned in [...] (HCC) documented in this encounter Care Teams Cream Beater Relationship Specialty Start Date End Date Gaduencio Miranda MD [address] [place] [address] PCP - General 07/25/16 Herberth Rodgers MD [address] [facility] [address] [address] Surgeon Surgery 02/24/21 documented as of this encounter
--- OUTSIDE RECORDS SUMMARY | 2024-03-07 17:31 | XMS_ITS | Encounter Summary ---
Author Organization [facility] Address [address] [place] [address] Care Team Providers Care Cognos Lead Name Role Phone Gaudencio Miranda MD Primary Care Provider [phone] Herberth Rodgers MD Unavailable [phone] Encounter Details Date Type Department Care Team (Late st Contact Info) Description 06/23/2022 Telephone [facility] Pulmonology [address] [facility] [facility] [address] [place] [address] Uma Gloria, CACHORRO Social History [...] on file Legal Sex Female 12:59 AM BOUNTY TRAPPER Gender Identity Not on file Sexual Orientation [...] on filedocumented in this encounter Care Teams Cognos Lead Relationship Specialty Start Date End Date Gaudencio Miranda MD [address] [place] [address] PCP - General 07/25/16 Herberth Rodgers MD [address] [facility] [address] [address] Surgeon Surgery 02/24/21 documented as of this encounter
--- OUTSIDE RECORDS SUMMARY | 2024-03-07 17:31 | XMS_ITS | Encounter Summary ---
Author Organization [facility] Address [address] [place] [address] Care Team Providers Care Family Medicine Physician Assistant Name Role Phone Gaudencio Miranda MD Primary Care Provider [phone] Herberth Rodgers MD Unavailable [phone] Encounter Details Date Type Department Care Team (Late st Contact Info) Description 07/13/2021 Orders Only [facility] Pulmonology [address] [facility] [address] [place] [address] Uma Gloria RN Chronic obstructive pulmonary disease, unspecified COPD [...] on file Legal Sex Female 12:59 AM SONOGRAM TECHNICIAN Gender Identity Not on file Sexual Orientation Not on file documented as of this encounter Progress Notes * Uma Gloria RN - 07/13/2021 10:46 AM CDT Order for poc has been sent to [facility]. documented in this encounter Plan of Treatment Not on file documented as of this encounter Visit Diagnoses Diagnosis Chronic obstructive pulmonary disease, unspecified COPD type (HCC)- Primary documented in this encounter Care Teams Family Medicine Physician Assistant Relationship Specialty Start Date End Date Gaudencio Miranda MD [address] [place] [address] PCP - General 07/25/16 Herberth Rodgers MD [address] [facility] [address] [address] Surgeon Surgery 02/24/21 documented as of this encounter
--- OUTSIDE RECORDS SUMMARY | 2024-03-07 17:31 | XMS_ITS | Encounter Summary ---
Author Organization [facility] Healthcare Address [address] [place] [address] Care Team Providers Care Limited Radiology Technician Name Role Phone Gaudencio Miranda MD Primary Care Provider Herberth Rodgers MD Unavailable [phone] Encounter Details Date Type Department Care Team (Late st Contact Info) Description 04/29/2021 6:45 PM LABORATORY SPECIALIST Lab [address] [address] Pre-procedure lab exam Social History Tobacco Use [...] on file Legal Sex Female 12:59 AM LABORATORY SPECIALIST Gender Identity Not on file Sexual Orientation Not on file documented as of this encounter Plan of Treatment Not on file documented as of this encounter Procedures Procedure Name Priority Date/Time Associated Diagnosis Comments COVID-19 CORONAVIRUS RNA Routine 04/29/2021 3:11 PM LABORATORY SPECIALIST Pre-procedure lab exam documented in this encounter Results * COVID-19 Coronavirus RNA Nasopharyngeal (04/29/2021 3:11 PM LABORATORY SPECIALIST) COVID-19 RNA Not Detected [facility] Comment: Interpretive Data Synonyms for this test include: PCR and NAAT . ??Testing performed by the [facility] Molecular Infectious Disease Laboratory. The 2019-Novel [...] No [facility] Employeed in healthcare? No [facility] status? No [facility] Group care resident? No [facility] Hospitalized? No [facility] Is patient in ICU? No [facility] Symptomatic as defined by CDC? No [facility] Nasopharyngeal 04/29/2021 3: 11 PM LABORATORY SPECIALIST 04/29/2021 7:33 PM LABORATORY SPECIALIST Narrative [facility] - 04/30/2021 3:28 AM LABORATORY SPECIALIST What is the reason for testing?->Screening prior to scheduled??procedure or surgery??(Batched) us Padmini Trinh MD LAB MICROBIOLOGY - GENERAL OR DERABLES Final Result Performing Organization Address City/State/[facility] Co de Phone Number [facility] [place] [address] documented in this encounter Visit Diagnoses Diagnosis Pre-procedure lab exam Pre-procedural laboratory examination documented in this encounter Care Teams Limited Radiology Technician Relationship Specialty Start Date End Date Gaudencio Miranda MD [address] [place] [address] PCP - General 07/25/16 Herberth Rodgers MD [address] [facility] [address] D[address] [address] Surgeon Surgery 02/24/21 documented as of this encounter
--- OUTSIDE RECORDS SUMMARY | 2024-03-07 17:31 | XMS_ITS | Encounter Summary ---
Author Organization [facility] Medical [facility] Address [address] [facility] [facility] [address] [place] [address] Care Team Providers Care Dowel Maker Name Role Phone Gaudencio Miranda MD Primary Care Provider [phone] Herberth Rodgers MD Unavailable [phone] Reason for Referral * MRI/CAT/PET Scan (Routine) - Closed Specialty Diagnoses / Procedures Referred By Mallory valentino Referred To Contact Radiology Diagnoses Lung nodules Procedures CT Chest WO Contrast [facility]admini Trin[facility] [address] D[address] [place] [address] Phone: tel: fax: [facility] [address] [place] [address] Referral ID Status Reason Start Date Expiration Date Visits Re quested Visits Authorized [id number] Closed 11/27/2022 12/27/2023 1 1 * Procedure (Routine) - Closed Specialty Diagnoses / Procedures Referred By Mallory valentino Referred To Contact Diagnoses Chronic obstructive pulmonary disease, unspecified COPD type (HCC) Chronic respiratory failure with hypoxia and hypercapnia (CMS/HCC) (HCC) Procedures Pulmonary Function Test -[facility]; Full PFT in PFT Lab w/Stress Ox/6 Min Walk Test Padmini Trinh MD [address] [facility] [address] D[address] [place] [address] Phone: tel: fax: Referral ID Status Reason Start Date Expiration Date Visits Re quested Visits Authorized [id number] Closed 11/27/2022 12/27/2023 1 1 Reason for Visit * Reason Comments Follow-up Encounter Details Date Type Department Care Team (Late st Contact Info) Description 11/27/2022 3:15 PM CDT Office Visit [facility] Pulmonology [address] [facility] [address] [place] [address] Padmini Trinh MD [address] [facility] [address] [place] [address] Chronic obstructive pulmonary disease, unspecified COPD type [...] file Legal Sex Female 12:59 AM RN OFFICE Gender Identity Not on file Sexual Orientation [...] be sent through Care Everywhere. * Emphysema (Paralegal Internship) (Vietnamese) documented in this encounter Progress Notes * [...] obesity his issues seen on hospital in earlyMe2020 for postop hypoxia. 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 she is obese and [...] Pulmonary Function Test - (05/18/2023 2:05 PM RN OFFICE) FVC POST 2.01 L 05/18/2023 4:57 PM [facility] FEV1 POST 1.41 L 05/18/2023 4:57 PM [facility] [id number] 69.95 % 05/18/2023 4:57 PM [facility] QNU41-75% POST 0.81 L/s 05/18/2023 4:57 PM [facility] PEF POST 3.69 L/s 05/18/2023 4:57 PM [facility] DLCOc SB 13.19 ml/(min*mm Hg) 05/18/2023 4:57 PM [facility] DLCO/VA PRE 4.32 ml/(min*mm Hg*L) 05/18/2023 4:57 PM [facility] VA 3.06 L 05/18/2023 4:57 PM [facility] FVC PRE 1.92 L 05/18/2023 4:57 PM [facility] FEV1 PRE 1.33 L 05/18/2023 4:57 PM [facility] [id number] 69.04 % 05/18/2023 4:57 PM RN OFFICE [facility] WTI66-93% PRE 0.73 L/s 05/18/2023 4:57 PM RN OFFICE [facility] PEF PRE 4.86 L/s 05/18/2023 4:57 PM RN OFFICE [facility] Anatomical Region Laterality Modality PFT 05/18/2023 1:08 PM RN OFFICE Impressions 05/23/2023 3:30 PM RN OFFICE Nonspecific ventilatory limitation suggestive of obstruction. ??Severe air trapping. ??Decreased uncorrected DLCO Electronically signed by Padmini Trinh MD Narrative 05/23/2023 3:30 PM RN OFFICE INTERPRETATION Please see technologist's comments mentioned in [...] CT Chest WO Contrast (05/18/2023 1:04 PM RN OFFICE) Anatomical Region Laterality Modality Body N/A Computed Tomogra phy 05/20/2023 3:20 PM RN OFFICE Addenda Addendum by Son Proctor MD on [...] PM T: ??07/27/2023 3:47 PM Report ID: [id number] Reading Location: ??[id number] Narrative 05/20/2023 3:30 PM RN OFFICE EXAM DESCRIPTION: CT CHEST WO CONTRAST . [...] D: ??05/20/2023 3:30 PM T: Report ID: [id number] Reading Location: ??[id number] Procedure Note Son Proctor MD - 05/20/2023 [...] signed by Son CRONIN T: Report ID: [id number] Reading Location: [place] [address] Padmini Trinh MD IMG CT PROCEDURES Edited [...] (HCC) documented in this encounter Care Teams Dowel Maker Relationship Specialty Start Date End Date Gaudencio Miranda MD [address] [place] [address] PCP - General 07/25/16 Herberth Rodgers MD [address] [facility] [address] [place] [address] Surgeon Surgery 02/24/21 documented as of this encounter
--- OUTSIDE RECORDS SUMMARY | 2024-03-07 17:31 | XMS_ITS | Encounter Summary ---
Author Organization [facility] Address [address] [facility] [place] [address] Care Team Providers Care Subassembly Supervisor Name Role Phone Gaudencio Miranda MD Primary Care Provider [phone] Herberth Rodgers MD Unavailable [phone] Reason for Referral * MRI/CAT/PET Scan (Routine) - Closed Specialty Diagnoses / Procedures Referred By Contac t Referred To Contact Radiology Diagnoses Lung mass Procedures CT Lung Needle Biopsy Right Padmini Trinh MD [address] [place] [address] Phone: tel: fax: [address] [address] Referral ID Status Reason Start Date Expiration Date Visits Re quested Visits Authorized [id number] Closed 04/08/2021 05/08/2022 1 1 NING PROCESSOR Encounter Details Date Type Department Care Team (Late st Contact Info) Description 04/04/[address] [facility] Pulmonology [address] [facility] [address] [place] [address] Uma Gloria, CACHORRO Social History [...] on file Legal Sex Female 12:59 AM BROWNING PROCESSOR Gender Identity Not on file Sexual Orientation Not on file documented as of this encounter Miscellaneous Notes * Telephone Encounter - Uma Gloria RN - 04/25/2021 9:40 AM BROWNING PROCESSOR Bx has been rsd got 05/03. NING PROCESSOR * Addendum Note - Uma Gloria RN - 04/08/2021 10:50 AM CSTAddended by: UMA GLORIA on: 04/08/2021 10:50 AM Modules accepted: Orders NING PROCESSOR * Telephone Encounter - Uma Gloria RN - 04/08/2021 10:39 AM BROWNING PROCESSOR Pt being scheduled for 04/25 999. IR will reach out to pt to discuss appt details and instructions. NING PROCESSOR * Telephone Encounter - Uma Gloria RN - 04/04/2021 9:05 AM BROWNING PROCESSOR Sent message to IR to review imaging for possible lung bx. NING PROCESSOR documented in this encounter Plan of Treatment Not on file documented as of this encounter Results * CT Lung Needle Biopsy Right (05/03/2021 10:31 AM BROWNING PROCESSOR) Anatomical Region Laterality Modality Lung N/A Computed Tomogra phy, Computed Radiography 05/03/2021 10:4 0 AM BROWNING PROCESSOR Addenda Addendum by Autumn Whalen DO on 05/04/2021 10:45 AM BROWNING PROCESSOR ADDENDUM: This addendum report supersedes the original [...] D: ??05/04/2021 10:44 AM T: Report ID: [id number] Reading Location: ??[id number] Narrative 05/03/2021 10:50 AM BROWNING PROCESSOR EXAM DESCRIPTION: ?? CT NEEDLE BIOPSY LUNG [...] D: ??05/03/2021 10:50 AM T: Report ID: [id number] Reading Location: ??[id number] Procedure Note Autumn Whalen DO - 05/03/2021 [...] Autumn Whalen D.O. PS T: Report ID: [id number] Reading Location: [place] [address] Padmini Trinh MD IMG CT PROCEDURES Edited Resu lt - Final * (ABNORMAL) CBC with auto differential (05/03/2021 7:58 AM BROWNING PROCESSOR) WBC 12.2(H) 3.8 - 9.9 K/cumm [facility] Hgb 13.8 11.9 - 15.5 g/dL [facility] Hct 42.6 35.6 - 45.5 % [facility] Plt 181 150 - 400 K/cumm [facility] MPV 10.7 9.1 - 12.3 fL [facility] RBC 4.40 3.90 - 5.20 M/cumm [facility] MCV 96.8(H) 81.3 - 96.4 fL [facility] MCH 31.4 27.1 - 33.3 pg [facility] MCHC 32.4 32.3 - 35.7 g/dL [facility] RDW CV 12.8 11.1 - 14.9 % [facility] RDW SD 46.3 35.7 - 48.1 fL [facility] NRBC abs 0.00 0.00 - 0.01 K/cumm [facility] Blood 05/03/2021 7:58 AM BROWNING PROCESSOR 05/03/2021 8:01 AM BROWNING PROCESSOR Padmini Trinh MD LAB BLOOD ORDERABLES Final Re sult [address] [place] [address] * aPTT (05/03/2021 7:57 AM BROWNING PROCESSOR) aPTT 36 22 - 37 sec SIMON Comment: Interpretive data aPTT test has not been evaluated for monitoring heparin therapy. The anti-Xa is the preferred test. Current interpretive data was last revised on 2019. Blood 05/03/2021 7:57 AM BROWNING PROCESSOR 05/03/2021 8:01 AM BROWNING PROCESSOR Padmini Trinh MD LAB BLOOD ORDERABLES Final Re sult Performing Organization Address [facility] Co de Phone Number [address] [address] * Protime-INR (05/03/2021 7:57 AM BROWNING PROCESSOR) PT 13.9 12.0 - 14.6 sec [facility] INR 1.1 0.9 - 1.2 [facility]ON Comment: Ref Range High Interpretive data Oral anticoagulant therapeutic ranges: Venous thromboembolism prophylaxis or treatment: 2.0-3.0 CARDIOLOGY Standard range: 2.0-3.0 High-intensity range: 2.5-3.5 Refer to indication-specific guidelines for appropriate target ranges for prosthetic heart valve replacement. Current interpretive data was last revised on 2019. Blood 05/03/2021 7:57 AM BROWNING PROCESSOR 05/03/2021 8:01 AM BROWNING PROCESSOR Padmini Trinh MD LAB BLOOD ORDERABLES Final Re sult Performing Organization Address City/[facility] Co de Phone Number [address] [address] documented in this encounter Visit Diagnoses Diagnosis Lung mass- Primary Swelling, mass, or lump in chest Shortness of breath Shortness of breath Lung mass Swelling, mass, or lump in chest Shortness of breath Shortness of breath documented in this encounter Care Teams Subassembly Supervisor Relationship Specialty Start Date End Date Gaudencio Miranda MD [address] [place] [address] PCP - General 07/25/16 Herberth Rodgers MD [address] [facility] [address] D[address] [address] Surgeon Surgery 02/24/21 documented as of this encounter
--- OUTSIDE RECORDS SUMMARY | 2024-03-07 17:31 | XMS_ITS | Encounter Summary ---
Author Organization [facility] Healthcare Address [address] [place] [address] Care Team Providers Care Manager Packaging Name Role Phone Gaudencio Miranda MD Primary Care Provider [phone] Herberth Rodgers MD Unavailable [phone] Reason for Referral * MRI/CAT/PET Scan (Routine) - Closed Specialty Diagnoses / Procedures Referred By Mallory valentino Referred To Contact Radiology Diagnoses Lung mass Procedures CT Chest WO Contrast Padmini Trinh MD [facility] [facility] [address] D[address] [place] [address] Phone: tel: fax: [address] [address] Referral ID Status Reason Start Date Expiration Date Visits Re quested Visits Authorized [id number] Closed 07/11/2021 08/10/2022 1 1 Reason for Visit * MRI/CAT/PET Scan (Routine) - Closed Specialty Diagnoses / Procedures Referred By Contac t Referred To Contact Radiology Diagnoses Lung mass Procedures CT Chest WO Contrast Padmini Trinh MD [address] [facility] [address] DYE [address] [place] [address] Phone: tel: fax: [address] [address] Referral ID Status Reason Start Date Expiration Date Visits Re quested Visits Authorized [id number] Closed 07/11/2021 08/10/2022 1 1 Encounter Details Date Type Department Care Team (Latest Contact Info) Description 11/17/2021 1:50 PM CDT - 11/17/2021 11:59 PM CDT Hospital Encounter [facility] [place] [address] [place] [address] [place] [address] Lung mass Discharge Disposition: Discharge to home [...] on file Legal Sex Female 12:59 AM SULFUR BURNER Gender Identity Not on file Sexual Orientation [...] ??Recent guidelines by the Fleischner Society (Radiology 247827,2017) divides patient into low vs. high risk [...] immunosuppression, or patients with known primary cancer. http://pubs.rsna.org/doi/pdf/10.1148/radiol.1460498780 THIS IS AN ELECTRONICALLY VERIFIED FINAL REPORT 11/20/2021 1:41 PM - Electronically signed by ??Matthias Redd M.D. RW: SOFIA D: ??11/20/2021 1:41 PM T: ??11/20/2021 1:41 PM Report ID: [id number] Reading Location: ??[id number] Procedure Note Matthias Redd MD - 11/20/2021 [...] Recent guidelines by the Fleischner Society (Radiology 632883,2017)divides patient into low vs. high risk (for [...] immunosuppression, or patients with known primary cancer. http://pubs.rsna.org/doi/pdf/10.1148/radiol.3204532130 THIS IS AN ELECTRONICALLY VERIFIED FINAL REPORT 11/20/2021 1:41 PM - Electronically signed by Matthias Redd M.D. RW: SOFIA Report ID: [id number] Reading Location: [place] [address] Padmini Trinh MD IMG CT PROCEDURES Final Resul t documented in this encounter Visit Diagnoses Diagnosis Lung mass Swelling, mass, or lump in chest documented in this encounter Care Teams Manager Packaging Relationship Specialty Start Date End Date Gaudencio Miranda MD [address] [place] [address] PCP - General 07/25/16 Herberth Rodgers MD [address] [facility] [address] [address] Surgeon Surgery 02/24/21 documented as of this encounter
--- OUTSIDE RECORDS SUMMARY | 2024-03-07 17:31 | XMS_ITS | Encounter Summary ---
Author Organization [facility] Healthcare Address [address] [place] [address] Care Team Providers Care Cable Installer Repairer Name Role Phone Gaudencio Miranda MD Primary Care Provider [phone] Herberth Rodgers MD Unavailable [phone] Reason for Referral * MRI/CAT/PET Scan (Routine) - Closed Specialty Diagnoses / Procedures Referred By Mallory valentino Referred To Contact Radiology Diagnoses Lung nodules Procedures CT Chest WO Contrast Padmini Trinh MD [facility] [facility] [address] [place] [address] Phone: tel: fax: [address] [address] Referral ID Status Reason Start Date Expiration Date Visits Re quested Visits Authorized [id number] Closed 11/27/2022 12/27/2023 1 1 DEVICE SCIENTIST Reason for Visit * MRI/CAT/PET Scan (Routine) - Closed Specialty Diagnoses / Procedures Referred By Mallory t Referred To Contact Radiology Diagnoses Lung nodules Procedures CT Chest WO Contrast Padmini Trinh MD [address] [facility] [address] DYE [address] [place] [address] Phone: tel: fax: [address] [address] Referral ID Status Reason Start Date Expiration Date Visits Re quested Visits Authorized [id number] Closed 11/27/2022 12/27/2023 1 1 Encounter Details Date Type Department Care Team (Latest Contact Info) Description 05/18/2023 12:30 PM MEMS DEVICE SCIENTIST - 05/18/2023 11:59 PM MEMS DEVICE SCIENTIST Hospital Encounter [facility] CT [address] [place] [address] Lung nodules Discharge Disposition: Discharge to home [...] on file Legal Sex Female 12:59 AM MEMS DEVICE SCIENTIST Gender Identity Not on file Sexual Orientation [...] Read Routine (OP Routine) 05/18/2023 1:04 PM MEMS DEVICE SCIENTIST Lung nodules documented in this encounter Results * CT Chest WO Contrast (05/18/2023 1:04 PM MEMS DEVICE SCIENTIST) Anatomical Region Laterality Modality Body N/A Computed Tomogra phy 05/20/2023 3:20 PM MEMS DEVICE SCIENTIST Addenda Addendum by Son Proctor MD on [...] PM T: ??07/27/2023 3:47 PM Report ID: [id number] Reading Location: ??[id number] Narrative 05/20/2023 3:30 PM MEMS DEVICE SCIENTIST EXAM DESCRIPTION: CT CHEST WO CONTRAST . [...] D: ??05/20/2023 3:30 PM T: Report ID: [id number] Reading Location: ??[id number] Procedure Note Son Proctor MD - 05/20/2023 [...] Son Proctor M.D. SN T: Report ID: [id number] Reading Location: [place] [address] [place] Padmini Trinh MD IMG CT PROCEDURES Edited Resu lt - Final documented in this encounter Visit Diagnoses Diagnosis Lung nodules Other diseases of lung, not elsewhere classified documented in this encounter Care Teams Cable Installer Repairer Relationship Specialty Start Date End Date Gaudencio Miranda MD [address] [place] [address] PCP - General 07/25/16 Herberth Rodgers MD [address] [facility] [address] [place] [address] Surgeon Surgery 02/24/21 documented as of this encounter
--- OUTSIDE RECORDS SUMMARY | 2024-03-07 17:31 | XMS_ITS | Encounter Summary ---
Author Organization [facility] Healthcare Address [address] [place] [address] Care Team Providers Care Toy Electric Train Repairer Name Role Phone Gaudencio Miranda MD Primary Care Provider [phone] Herberth Rodgers MD Unavailable [phone] Reason for Referral * MRI/CAT/PET Scan (Routine) - Closed Specialty Diagnoses / Procedures Referred By Mallory valentino Referred To Contact Radiology Diagnoses Pulmonary nodule Procedures PET/CT FDG Skull to Thigh Padmini Trinh MD [facility] [facility] [address] [place] [address] Phone: tel: fax: [address] [phone] Referral ID Status Reason Start Date Expiration Date Visits Re quested Visits Authorized [id number] Closed 03/16/2021 04/30/2021 2 2 DENT SURGEON Reason for Visit * MRI/CAT/PET Scan (Routine) - Closed Specialty Diagnoses / Procedures Referred By Mallory valentino Referred To Contact Radiology Diagnoses Pulmonary nodule Procedures PET/CT FDG Skull to Thigh Padmini Trinh MD [address] [facility] [address] [place] [address] Phone: tel: fax: [address] [phone] Referral ID Status Reason Start Date Expiration Date Visits Re quested Visits Authorized [id number] Closed 03/16/2021 04/30/2021 2 2 Encounter Details Date Type Department Care Team (Latest Contact Info) Description 03/24/2021 12:12 PM RESIDENT SURGEON - 03/24/2021 11:59 PM RESIDENT SURGEON Hospital Encounter [facility] Building [address] [address] Pulmonary nodule Discharge Disposition: Discharge to home [...] on file Legal Sex Female 12:59 AM RESIDENT SURGEON Gender Identity Not on file Sexual Orientation [...] Read Routine (OP Routine) 03/24/2021 1:51 PM RESIDENT SURGEON Pulmonary nodule POCT GLUCOSE DEVICE Routine 03/24/2021 12:24 PM RESIDENT SURGEON documented in this encounter Results * PET/CT FDG Skull to Thigh (03/24/2021 1:51 PM RESIDENT SURGEON) Anatomical Region Laterality Modality N/A Positron Emissio n Tomography (PET) 03/24/2021 1:59 PM RESIDENT SURGEON Narrative 03/24/2021 2:54 PM RESIDENT SURGEON EXAM DESCRIPTION: ?? PET/CT FDG SKULL TO [...] PM T: ??03/24/2021 2:54 PM Report ID: [id number] Reading Location: ??[id number] Procedure Note Elie Braswell MD - 03/24/2021 [...] Elie Braswell M.D. LB: MARGIE Report ID: [id number] Reading Location: [place] [address] [place] Padmini Trinh MD IMG PET PROCEDURES Final Resu lt * (ABNORMAL) POCT glucose (03/24/2021 12:24 PM RESIDENT SURGEON) Pathologist [facility] Glucose, POC 64(L) 70 - 199 mg/dL SIMON ELIZABETH Comment:Testing performed by : [facility], [address] [place] [address]., [id number] Glucose comment 1 Use This Result SIMON ELIZABETH Comment:Testing performed by : [facility], [address], [place]., [address] Blood 03/24/2021 12:2 4 PM RESIDENT SURGEON 03/24/2021 12:24 PM RESIDENT SURGEON Gaudencio Miranda MD LAB POCT ORDERABLES - DEVICE Final Result SIMON [address] [facility] Department [place] [address] documented in this encounter Visit Diagnoses Diagnosis [...] For 1 dose Given 03/24/2021 12:26 PM RESIDENT SURGEON 11.7 millicuries documented in this encounter Orders Medications Ordered That Regan ht Not Have Been Administered Count Last Ordered Date First Ordered Date fludeoxyglucose F-18 (FDG) i njection 11.7 millicurie 1 03/24/2021 documented in this encounter Care Teams Toy Electric Train Repairer Relationship Specialty Start Date End Date Gaudencio Miranda MD [address] [place] [address] PCP - General 07/25/16 Herberth Rodgres MD [address] [facility] [address] [place] [address] Surgeon Surgery 02/24/21 documented as of this encounter
--- OUTSIDE RECORDS SUMMARY | 2024-03-07 17:31 | XMS_ITS | Encounter Summary ---
Author Organization [facility] Healthcare Address [address] [place] [address] Care Team Providers Care Lemon Grower Name Role Phone Gaudencio Miranda MD Primary Care Provider [phone] Herberth Rodgers MD Unavailable [phone] Reason for Referral * Procedure (Routine) - Authorized Specialty Diagnoses / Procedures Referred By Mallory valentino Referred To Contact Diagnoses Chronic obstructive pulmonary disease, unspecified COPD type (HCC) Procedures Pulmonary Function Test -[facility]; Full PFT in PFT Lab w/Stress Ox/6 Min Walk Test Padmini Trinh MD [facility] [address] [place] [address] Phone: tel: fax: Referral ID Status Reason Start Date Expiration Date V isits Requested Visits Authorized [id number] Authorized 05/28/2023 06/26/2024 1 1 * MRI/CAT/PET Scan (Routine) - Pending Review Specialty Diagnoses / Procedures Referred By Mallory valentino Referred To Contact Radiology Diagnoses Pulmonary nodule Procedures CT Chest WO Contrast Padmini Trinh MD [address] [facility] [address] [place] [address] Phone: tel: fax: [facility] [address] [place] [address] Referral ID Status Reason Start Date Expiration Date V isits Requested Visits Authorized [id number] Pending Review 05/28/2023 06/26/2024 1 1 Reason for Visit * Reason Comments Follow-up Encounter Details Date Type Department Care Team (Late st Contact Info) Description 05/28/2023 3:00 PM CDT Office Visit [facility] Medical Group Pulmonology [address] [facility] [address] [place] [address] Padmini Trinh MD [address] [facility] [address] [place] [address] Chronic obstructive pulmonary disease, unspecified COPD type [...] on file Legal Sex Female 12:59 AM MONTESSORI LEAD TEACHER Gender Identity Not on file Sexual [...] obesity his issues seen on hospital in early[place]2020 for postop hypoxia. She initially presented for [...] Data Review: Last CT Chest wo Contrast ([id number]) Results for orders placed during the hospital [...] deconditioning and obesity hypoventilation This is primary courtesy bus driver of respiratory issues. Essentially does not [...] Expected: 05/19/2024, Expires: 11/27/2024 Pulmonary Function Test -[facility]; Full PFT in PFT Lab w/Stress Ox/6 [...] (200 mcg total) by mouth daily 05/28/2023 hgjslwjbtwj-upogzlljn-c ilanter (Trelegy Ellipta) 100-62.5-25 mcg inhalerIndications:Terrazzo Grinder del obstructive pulmonary disease, unspecified COPD type (HCC) Inhale 1 puff daily Therapy completed 03/28/2021 05/28/2023 albuterol HFA (Ventolin HFA) 90 mcg/actuation inhalerIndications:Terrazzo Grinder del obstructive pulmonary disease, unspecified COPD type [...] 03/13/2023 added in this encounter Care Teams Lemon Grower Relationship Specialty Start Date End Date Gaudencio Miranda MD [address] [place] [address] PCP - General 07/25/16 Herberth Rodgers MD [address] [facility] [address] [address] Surgeon Surgery 02/24/21 documented as of this encounter
--- OUTSIDE RECORDS SUMMARY | 2024-03-07 17:31 | XMS_ITS | Encounter Summary ---
Author Organization [facility] Medical Group Address [address] [facility] [address] [place] [address] Care Team Providers Care Program Evaluation Consultant Name Role Phone Gaudencio Miranda MD Primary Care Provider [phone] Herberth Rodgers MD Unavailable [phone] Reason for Visit * Reason Comments Follow-up PET CT Encounter Details Date Type Department Care Team (Late st Contact Info) Description 03/28/2021 2:30 PM SOFTWARE QUALITY ENGINEER Office Visit [facility] Medical [facility] Pulmonology [address] [facility] [address] [place] [address] Padmini Trinh MD [address] [facility] [address] [place] [address] Chronic obstructive pulmonary disease, unspecified COPD type (HCC) (Primary Dx); Heart failure with preserved left ventricular function (HFpEF) ([facility]/HCC) ([facility]); Non-seasonal allergic rhinitis due to other allergic trigger; Pulmonary nodule; Lung mass; Class 3 severe obesity due to excess calories with serious comorbidity and body mass index (BMI) of 45.0 to 49.9 in adult ([facility]); FELISHA (obstructive sleep apnea); Restrictive lung disease; Chronic respiratory failure with hypoxia and hypercapnia (CMS/HCC) ([facility]); Stage 5 chronic kidney disease not on chronic dialysis (CMS/HCC) ([facility]) Social History Tobacco Use Types Packs/Day Years [...] on file Legal Sex Female 12:59 AM SOFTWARE QUALITY ENGINEER Gender Identity Not on file Sexual Orientation Not on file documented as of this encounter Last Filed Vital Signs Vital Sign Reading Time Taken Comments Blood Pressure 126/62 03/28/2021 2:37 PM SOFTWARE QUALITY ENGINEER Pulse 64 03/28/2021 2:37 PM SOFTWARE QUALITY ENGINEER Temperature 36.6 ??C (97.8 ??F) 03/28/2021 2 :37 PM SOFTWARE QUALITY ENGINEER Respiratory Rate 20 03/28/2021 2:37 PM SOFTWARE QUALITY ENGINEER Oxygen Saturation 89% 03/28/2021 2:3 7 PM SOFTWARE QUALITY ENGINEER Pt oxygen left at home. Inhaled Oxygen Concentration - - Weight 137.5 kg (303 lb 3.2 oz) 03/28/2021 2:37 PM SOFTWARE QUALITY ENGINEER Height - - Body Mass Index 47.49 03/15/2021 9:19 AM SOFTWARE QUALITY ENGINEER documented in this encounter Ordered Prescriptions Prescription [...] obesity his issues seen on hospital in [facility] 2020 for postop hypoxia. She initially [...] spent prior to the visit, during the visit/sngi-ye-xgfv time, and after the visit in direct care of the patient. This time does not include time spent in any separately reportable services. Padmini Trinh MD Pulmonary Medicine There may be syntax/grammatical errors in this note due to the use of voice recognition software. Addendum: Biopsy by IR is scheduled for 05/03 WARE QUALITY ENGINEER WARE QUALITY ENGINEER documented in this encounter Plan of Treatment Not on file documented as of this encounter Visit Diagnoses Diagnosis Chronic obstructive pulmonary disease, unspecified COPD type (HCC)- Primary Heart failure with preserved left ventricular function (HFpEF) ([facility]) ([facility]) Non-seasonal allergic rhinitis due to other allergic trigger Pulmonary nodule Other diseases of lung, not elsewhere classified Lung mass Swelling, mass, or lump in chest Class 3 severe obesity due to excess calories with serious comorbidity and body mass index (BMI) of 45.0 to 49.9 in adult ([facility]) FELISHA (obstructive sleep apnea) Obstructive sleep apnea (adult) (pediatric) Restrictive lung disease Other diseases of lung, not elsewhere classified Chronic respiratory failure with hypoxia and hypercapnia ([facility]) (HCC) Stage 5 chronic kidney disease not on chronic dialysis (CMS/[facility]) ([facility]) documented in this encounter Discontinued Medications Medication [...] 03/22/2021 added in this encounter Care Teams Program Evaluation Consultant Relationship Specialty Start Date End Date Gaudencio Miranda MD [address] [place] [address] PCP - General 07/25/16 Herberth Rodgers MD [address] [facility] [address] [place] [address] Surgeon Surgery 02/24/21 documented as of this encounter
--- OUTSIDE RECORDS SUMMARY | 2024-03-07 17:31 | XMS_ITS | Referral Summary ---
Author Organization [facility] Address [address] [place] [address] Care Team Providers Care Director Of Physical Education Name Role Phone Gaudencio Miranda MD Primary Care Provider [phone] Herberth Rodgers MD Unavailable [phone] Allergies Active Allergy Reactions Criticality Noted [...] ns:Chronic obstructive pulmonary disease, unspecified COPD type ([facility]) Inhale 2 puffs every 4 [...] (12/23/2020): Added automatically from request for surgery [id number] Assessment & Plan (12/27/2020 10:51 AM CDT): [...] care physician. Chronic kidney disease, stage V (CMS/[facility]) 2019 Assessment & Plan (03/28/2021 1:41 PM TOWER AIR TRAFFIC CONTROL SPECIALIST): Impression: Patient with recent left brachial cephalic AV fistula creation on 02/24/2021. Unfortunately her AV fistula has thrombosed however her chronic kidney disease remains stable per patient report. She does have an upcoming appointment with her grinder lap. I discussed further treatment with the patient and explained that she will need a AV graft creation when determine by her grinder lap that she will require hemodialysis. Plan: Patient [...] on file Legal Sex Female 12:59 AM TOWER AIR TRAFFIC CONTROL SPECIALIST Gender Identity Not on file Sexual [...] 134.3 kg (296 lb) 05/03/2021 8:10 AM TOWER AIR TRAFFIC CONTROL SPECIALIST Height 170.2 cm (5' 7 ) 05/28/2023 3:04 PM CDT Body Mass Index 46.36 05/03/2021 8:10 AM TOWER AIR TRAFFIC CONTROL SPECIALIST Plan of Treatment Not on file Medical Devices Implanted Type Area Crawler Tractor Operator Device Identifier Shelf Expiration Date Model / Serial / Lot Plate-03/19/2004 Implanted:03/19 (Quantity not on file) Plate Cervical-T horacic Spine Insurance MEDICARE SOLUTIONS MEDICARE SOLUTIONS MEDICARE SOLUTIONS Advance Directives For more information, please contact: [phone] Documents on File Type Date Recorded Patient Oracle Brm Developer Expl anation Power of Line Staker 01/13/2021 11:26 AM * Full Code (Latest Code Status on File) Date Activated Date Inactivated Comments 05/03/2021 10:25 AM 05/04/2021 4:42 AM * Full Code Date Activated Date Inactivated Comments 02/24/2021 8:02 PM 02/28/2021 12:11 AM Care Teams Director Of Physical Education Relationship Specialty Start Date End Date Gaudencio Miranda MD [address] [place] [address] PCP - General 07/25/16 Herberth Rodgers MD [address] [facility] [address] [address] Surgeon Surgery 02/24/21
--- OUTSIDE RECORDS SUMMARY | 2024-03-07 17:31 | XMS_ITS | Encounter Summary ---
Author Organization [facility] Medical [facility] Address [address] [facility] [address] [place] [address] Care Team Providers Care Shuttle Filler Name Role Phone Gaudencio Miranda MD Primary Care Provider [phone] Herberth Rodgers MD Unavailable [phone] Reason for Visit * Reason Comments Post-op Creation ABELARDO ROSS 02/24/21 Encounter Details Date Type Department Care Team (Late st Contact Info) Description 03/09/2021 11:00 AM MANAGER TECHNICAL SERVICES Office Visit [facility] Medical [facility] Vascular and Vein Surgery [address] [facility] [address] [place] [address] Khoa Perales, STRAINER TENDER [address] [facility] [address] [place] [address] Chronic kidney disease, stage V [...] on file Legal Sex Female 12:59 AM MANAGER TECHNICAL SERVICES Gender Identity Not on file Sexual Orientation Not on file documented as of this encounter Last Filed Vital Signs Vital Sign Reading Time Taken Comments Blood Pressure 125/69 03/09/2021 10:30 AM MANAGER TECHNICAL SERVICES Pulse 57 03/09/2021 10:30 AM MANAGER TECHNICAL SERVICES Temperature - - Respiratory Rate - - Oxygen Saturation - - Inhaled Oxygen Concentration - - Weight 135.6 kg (299 lb) 03/09/2021 10:30 AM MANAGER TECHNICAL SERVICES Height 170.2 cm (5' 7 ) 03/09/2021 10:30 AM MANAGER TECHNICAL SERVICES Body Mass Index 46.83 03/09/2021 10:30 AM MANAGER TECHNICAL SERVICES documented in this encounter Progress Notes * [...] She does have an upcoming appointment withher fur stylist to his discuss her chronic kidney disease. [...] does have an upcoming appointment with her fur stylist. I discussed further treatment withthe patient and explained that she will need a AV graft creation when determine by her nephrologistthat she will require hemodialysis. Plan: Patient states she would prefer to contact our office when determined that she will require hemodialysis for AV graft creation. Portions of this note was created with [employer] voice recognition software. Instrument Repair Technician variances may be present. Khoa Perales NP Cosigned by Herberth Rodgers MD at 03/28/2021 5:46 PM MANAGER TECHNICAL SERVICES GER TECHNICAL SERVICES GER TECHNICAL SERVICES documented in this encounter Miscellaneous Notes * Assessment & Plan Note - Khoa Perales NP - 03/28/2021 1:40 PM MANAGER TECHNICAL SERVICES Associated Problem(s): Chronic kidney disease, stage V (CMS/HCC) ([facility]) Impression: Patient with recent left brachial cephalic AV fistula creation on 02/24/2021. Unfortunately her AV fistula has thrombosed however her chronic kidney disease remains stable per patient report. She does have an upcoming appointment with her fur stylist. I discussed further treatment withthe patient and explained that she will need a AV graft creation when determine by her nephrologistthat she will require hemodialysis. Plan: Patient states she would prefer to contact our office when determined that she will require hemodialysis for AV graft creation. GER TECHNICAL SERVICES documented in this encounter Plan of Treatment [...] documented as of this encounter Care Teams Shuttle Filler Relationship Specialty Start Date End Date Gaudencio Miranda MD [address] [place] [address] PCP - General 07/25/16 Herberth Rodgers MD [address] [facility] [address] [address] Surgeon Surgery 02/24/21 documented as of this encounter
--- OUTSIDE RECORDS SUMMARY | 2024-03-07 17:31 | XMS_ITS | Encounter Summary ---
Author Organization [facility] Healthcare Address [address] [place] [address] Care Team Providers Care Winding Machine Operator Name Role Phone Gaudencio Miranda MD Primary Care Provider [phone] Herberth Rodgers MD Unavailable [phone] Encounter Details Date Type Department Care Team (Latest Contact Info) Description 05/03/2021 11:52 AM ELECTRONIC SYSTEMS TECHNICIAN - 05/03/2021 11:59 PM ELECTRONIC SYSTEMS TECHNICIAN Hospital Encounter [facility] ED Diagnostic Imaging [address] [place] [address] Discharge Disposition: Discharge to home or self [...] on file Legal Sex Female 12:59 AM ELECTRONIC SYSTEMS TECHNICIAN Gender Identity Not on file Sexual [...] s:Chronic obstructive pulmonary disease, unspecified COPD type ([facility]) Inhale 1 puff daily 1 each 3 03/28/2021 05/28/2023 documented as of this encounter Discharge Disposition Disposition Code Departure Means Destination Discharge to home or self care documented in this encounter Plan of Treatment Not on file documented as of this encounter Procedures Procedure Name Priority Date/Time Associated Diagnosis Comments XR CHEST 1 VIEW IP Routine 05/03/2021 12:12 PM ELECTRONIC SYSTEMS TECHNICIAN documented in this encounter Results * XR Chest 1 View (Portable) (05/03/2021 12:12 PM ELECTRONIC SYSTEMS TECHNICIAN) Anatomical Region Laterality Modality Body, Chest N/A Computed Radiogr aphy 05/03/2021 12:1 9 PM ELECTRONIC SYSTEMS TECHNICIAN Narrative 05/03/2021 12:21 PM ELECTRONIC SYSTEMS TECHNICIAN EXAM DESCRIPTION: ?? XR CHEST 1 [...] D: ??05/03/2021 12:21 PM T: Report ID: [id number] Reading Location: ??[id number] Procedure Note Autumn Whalen, DO - 05/03/2021 [...] Autumn Whalen D.O. PS T: Report ID: [id number] Reading Location: [place] [address] [place] Autumn Whalen DO IMG XR PROCEDURES Final R esult documented in this encounter Visit Diagnoses Not on filedocumented in this encounter Care Teams Winding Machine Operator Relationship Specialty Start Date End Date Gaudencio Miranda MD [address] [place] [address] PCP - General 07/25/16 Herberth Rodgers MD [address] [facility] [address] [address] Surgeon Surgery 02/24/21 documented as of this encounter
--- OUTSIDE RECORDS SUMMARY | 2024-03-07 17:31 | XMS_ITS | Encounter Summary ---
Author Organization [facility] Medical Group Address [address] [facility] [address] [place] [address] Care Team Providers Care Price Lister Name Role Phone Gaudencio Miranda MD Primary Care Provider [phone] Herberth Rodgers MD Unavailable [phone] Reason for Referral * Procedure (Routine) - Closed Specialty Diagnoses / Procedures Referred By Contac t Referred To Contact Diagnoses Chronic obstructive pulmonary disease, unspecified COPD type (HCC) Procedures Pulmonary Function Test -[facility]; Full PFT in PFT Lab w/Stress Ox/6 Min Walk Test Padmini Trinh MD [address] [place] [address] [address] [place] [address] Phone: tel: fax: Referral ID Status Reason Start Date Expiration Date Visits Re quested Visits Authorized [id number] Closed 12/12/2021 01/11/2023 1 1 Reason for Visit * Reason Comments COPD Follow up Encounter Details Date Type Department Care Team (Late st Contact Info) Description 12/12/2021 4:00 PM CDT Office Visit [facility] Medical Group Pulmonology [address] [facility] [address] [place] [address] Padmini Trinh MD [address] [facility] [address] [place] [address] Chronic obstructive pulmonary disease, unspecified COPD type [...] on file Legal Sex Female 12:59 AM JUDICIAL ADMINISTRATIVE ASSISTANT Gender Identity Not on file [...] his issues seen on hospital in [facility] 2020 for postop hypoxia. She [...] L 06/22/2022 2:57 PM CDT [facility] FVC PRE 2.00(L) 2.26 - 4.06 L 06/22/2022 2:57 PM CDT [facility] FEV1 POST 1.57(L) 1.72 - 3.04 L 06/22/2022 2:57 PM CDT [facility] FEV1 PRE 1.52(L) 1.72 - 3.04 L 06/22/2022 2:57 PM CDT [facility] [id number] 74.46 63.52 - 89.00 % 06/22/2022 2:57 PM CDT [facility] [id number] 76.23 63.52 - 89.00 % 06/22/2022 2:57 PM CDT [facility] HZP42-79% POST 1.17 0.85 - 3.43 L/s 06/22/2022 2:57 PM CDT [facility] YRH75-12% PRE 0.86 0.85 - 3.43 L/s 06/22/2022 2:57 PM CDT [facility] PEF POST 5.17 4.72 - 7.68 L/s 06/22/2022 2:57 PM CDT [facility] PEF PRE 4.96 4.72 - 7.68 L/s 06/22/2022 2:57 PM CDT [facility] FET 100% POST 6.19 sec 06/22/2022 2:57 PM CDT [facility] FET 100% PRE 6.91 sec 06/22/2022 2:57 PM CDT [facility] FIVC POST 1.83(L) 2.33 - 3.71 L 06/22/2022 2:57 PM CDT [facility] FIVC PRE 1.77(L) 2.33 - 3.71 L 06/22/2022 2:57 PM CDT [facility] FIF50% POST 2.21 L/s 06/22/2022 2:57 PM CDT [facility] FIF50% PRE 2.50 L/s 06/22/2022 2:57 PM CDT [facility] DLCOc SB 12.12(L) 17.59 - 29.06 ml/(min*mm Hg) 06/22/2022 2:57 PM CDT [facility] VA 3.09(L) 5.46 - 5.46 L 06/22/2022 2:57 PM CDT [facility] DLCO/VA PRE 3.93 2.90 - 5.42 ml/(min*mm Hg*L) 06/22/2022 2:57 PM CDT [facility] IC SB 1.53(L) 2.37 - 2.37 L 06/22/2022 2:57 PM CDT [facility] VC PRE 1.78(L) 2.33 - 3.71 L 06/22/2022 2:57 PM CDT [facility] TLC PRE 4.24(L) 4.62 - 6.60 L 06/22/2022 2:57 PM CDT [facility] RV PRE 2.47 1.72 - 2.87 L 06/22/2022 2:57 PM CDT [facility] FRC PL PRE 2.71 2.12 - 3.76 L 06/22/2022 2:57 PM CDT [facility] ERV PRE 0.24(L) 0.65 - 0.65 L 06/22/2022 2:57 PM CDT [facility] IC PRE 1.53(L) 2.37 - 2.37 L 06/22/2022 2:57 PM T [facility] RAW PRE 6.75(H) 3.06 - 3.06 cmH2O*s/L 06/22/2022 2:57 PM T [facility] BF RES 18.39 BPM 06/22/2022 2:57 PM T [facility] Anatomical Region Laterality Modality PFT 06/22/2022 [...] (HCC) documented in this encounter Care Teams Price Lister Relationship Specialty Start Date End Date Gaudencio Miranda MD [address] [place] [address] PCP - General 07/25/16 Herberth Rodgers MD [address] [facility] [address] [address] Surgeon Surgery 02/24/21 documented as of this encounter
--- OUTSIDE RECORDS SUMMARY | 2024-03-07 17:31 | XMS_ITS | Encounter Summary ---
Author Organization [facility] Medical Group Address [address] [facility] [address] [place] [address] Care Team Providers Care Production Laborer Name Role Phone Gaudencio Miranda MD Primary Care Provider [phone] Herberth Rodgers MD Unavailable [phone] Encounter Details Date Type Department Care Team (Late st Contact Info) Description 04/20/2021 Orders Only [facility] Testing Site - [facility]. Building [address] [place] [address] [address] [place] [address] Padmini Trinh MD [address] [facility] [address] [address] Pre-procedure lab exam (Primary Dx) Social History [...] on file Legal Sex Female 12:59 AM COIN TELLER Gender Identity Not on file Sexual Orientation [...] or living setting? No ?? ? No TELLER documented in this encounter Plan of Treatment Not on file documented as of this encounter Results * COVID-19 Coronavirus RNA Nasopharyngeal (04/29/2021 3:11 PM COIN TELLER) COVID-19 RNA Not Detected [facility] Comment: Interpretive Data Synonyms for this test include: PCR and NAAT . ??Testing performed by the [facility] Molecular Infectious Disease Laboratory. The 2019-Novel Coronavirus [...] April 22, 2020. First COVID-19 test? No [facility] Employeed in healthcare? No [facility] status? No [facility] Group care resident? No [facility] Hospitalized? No [facility] Is patient in ICU? No [facility] Symptomatic as defined by CDC? No [facility] Nasopharyngeal 04/29/2021 3: 11 PM COIN TELLER 04/29/2021 7:33 PM COIN TELLER Narrative [facility] - 04/30/2021 3:28 AM COIN TELLER What is the reason for testing?->Screening prior to scheduled??procedure or surgery??(Batched) us Padmini Trinh MD LAB MICROBIOLOGY - GENERAL OR DERABLES Final Result [facility] Department [place] [address] documented in this encounter Visit Diagnoses Diagnosis Pre-procedure lab exam- Primary Pre-procedural laboratory examination Pre-procedure lab exam Pre-procedural laboratory examination documented in this encounter Care Teams Production Laborer Relationship Specialty Start Date End Date Gaudencio Miranda MD [address] [place] [address] PCP - General 07/25/16 Herberth Rodgers MD [address] [facility] [address] [address] Surgeon Surgery 02/24/21 documented as of this encounter
--- OUTSIDE RECORDS SUMMARY | 2024-03-07 17:31 | XMS_ITS | Encounter Summary ---
Author Organization [facility] Address [address] [facility] [address] [place] [address] Care Team Providers Care Poiser Name Role Phone Gaudencio Miranda MD Primary Care Provider [phone] Herberth Rodgers MD Unavailable [phone] Reason for Visit * Reason Comments Follow-up Encounter Details Date Type Department Care Team (Late st Contact Info) Description 06/26/2022 3:00 PM CDT Office Visit 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
--- OUTSIDE RECORDS SUMMARY | 2024-03-07 17:32 | XMS_ITS | Encounter Summary ---
Author Organization [facility] Address [address] [facility] [address] [place] [address] Care Team Providers Care Contract Programmer Name Role Phone Gaudencio Miranda MD Primary Care Provider [phone] Reason for Visit * Cardiology (Routine) - Closed Specialty Diagnoses / Procedures Referred By Mallory valentino Referred To Contact Diagnoses Other chest pain PIERRE (dyspnea on exertion) Preop cardiovascular exam Procedures Transthoracic Echo Complete W Doppler/CF Stacy Peña [place] [address] [place] [address] Phone: tel: fax: [facility] Referral ID Status Reason Start Date Expiration Date Visits Re quested Visits Authorized [id number] Closed 01/17/2021 02/16/2022 1 1 Encounter Details Date Type Department Care Team (Latest Contact Info) Description 02/07/2021 2:00 PM LOAN SECRETARY Ancillary Procedure [facility] Cardiology [address] [place] [address] Other chest pain; PIERRE (dyspnea [...] on file Legal Sex Female 12:59 AM LOAN SECRETARY Gender Identity Not on file Sexual Orientation Not on file documented as of this encounter Plan of Treatment Not on file documented as of this encounter Procedures Procedure Name Priority Date/Time Associated Diagnosis Comments TRANSTHORACIC ECHO (TTE) COMPLETE W DOPPLER/CF W CONTRAST Routine 02/07/2021 2:57 PM LOAN SECRETARY Other chest pain PIERRE (dyspnea on exertion) Preop cardiovascular exam documented in this encounter Results * TRANSTHORACIC ECHO (TTE) COMPLETE W DOPPLER/CF W CONTRAST (02/07/2021 2:57 PM LOAN SECRETARY) Anatomical Region Laterality Modality Ultrasound 02/07/2021 1:35 PM LOAN SECRETARY Narrative 02/07/2021 7:19 PM LOAN SECRETARY [facility] Cardiology [address] [facility] [address] [id number] [address] [facility] [address] [place] [address], [place] [address] P:[phone] P:[phone] Echocardiographic Report Patient Name: PEG SON : [id number] Study Date: 02/07/2021 1:35:00 PM Gender: F Tech: Location: [place] Ref.Provider: STACY PEÑA Height(Cm): 173 BSA: 2.43 [...] Findings: Interpretation Site: Exam was interpreted at [facility]. Left Ventricle: Normal left ventricular systolic [...] used. Electronically Signed By: Geena Tran MD, [facility] 2021-02-07 19:19:45 LOAN SECRETARY Procedure Note Geena Tran MD - 02/07/2021 [facility] Cardiology [address] [facility] [address], [place] [address] [address] [facility] [address], [place] [address] P:[phone] P:[phone] Echocardiographic Report Patient Name: PEG SONPatient ID: [id number] : [id number] Date: 02/07/2021 1:35:00 PM Gender: FAccession #: [id number] Tech: GMLocation: [place] Ref.Provider: JAH PEÑARHeight(Cm): 173 BSA: 2.43Weight(Kg): 136.08 [...] 16.00 - 28.00 ] cc/m2 MV Decel [id number] [ 150 - 200 ] msec ACS MM 1.83 cm PV Peak Vel1.34 [ 0.40 - 0.80 ] m/s E'0.07 E/E' 10 Findings: Interpretation Site: Exam was interpreted at [facility]. Left Ventricle: Normal left ventricular systolic [...] agentused. Electronically Signed By: Geena Tran MD, [facility] 2021-02-07 19:19:45 LOAN SECRETARY Stacy Peña MD CV ECHO PROCEDURES F [...] 1 dose Contrast Given 02/07/2021 2:49 PM LOAN SECRETARY 1 mL documented in this encounter Orders Medications Ordered That Regan ht Not Have Been Administered Count Last Ordered Date First Ordered Date perflutren lipid (DEFINITY) 1.5 mL in sodium chloride 0.9% 10 mL syringe 1 02/07/2021 documented in this encounter Care Teams Contract Programmer Relationship Specialty Start Date End Date Gaudencio Miranda MD [address] [place] [address] PCP - General 07/25/16 documented as of this encounter
--- OUTSIDE RECORDS SUMMARY | 2024-03-07 17:32 | XMS_ITS | Encounter Summary ---
Author Organization [facility] Address [address] [place] [address] Care Team Providers Care Air Quality Engineer Name Role Phone Gaudencio Miranda MD Primary Care Provider [phone] Reason for Visit * Auth/Cert Specialty Diagnoses / Procedures Referred By Mallory valentino Referred To Contact Diagnoses End stage renal disease (CMS/HCC) (HCC) End stage renal disease (CMS/HCC) (HCC) [N18.6] Procedures MT CREAT AV FISTULA,AUTOGENOUS GRAFT MT CREAT AV FISTULA,NON-AUTOGENOUS GRAFT LEFT UPPER EXTREMITY ARTERIOVENOUS FISTULA CREATION Referral ID Status Reason Start Date Expiration Date Visits Re quested Visits Authorized [id number] 1 1 Encounter Details Date Type Department Care Team (Latest Contact Info) Description 12/30/2020 10:22 AM CDT - 12/30/2020 12:49 PM CDT Hospital Encounter [facility] [address] [place] [address] Herberth Rodgers MD [address] [facility] [address] [place] [address] Discharge Disposition: Discharge to home or self [...] on file Legal Sex Female 12:59 AM CEMENT SACK BREAKER Gender Identity Not on file Sexual Orientation [...] Surgery Reminder Checklist: Please arrive to [facility] for scheduled [...] take TYLENOL (ACETAMINOPHEN) as needed for pain. [place] your teeth morning of procedure. Use mouth [...] Sunday12/27/2020. Specimen collection site is located at [address] [place] [address]. Operating hours are 0800 AM TO 4 [...] please call the Admission Testing Center at [phone]. THANK MICH HUDSON RN * Perioperative Nursing [...] AM CDT) Ventricular Rate EKG/Min 61 BPM [facility] Atrial Rate 61 BPM [facility] MT-Interval (MSEC) 218 ms [facility] QRS-Interval (MSEC) 102 ms [facility] QT-Interval (MSEC) 414 ms [facility] QTc 416 ms [facility] P [place] 78 degrees [facility] R [place] -42 degrees [facility] T [place] 50 degrees [facility] Diagnosis Sinus rhythm with 1st degree A-V block Left axis deviation Abnormal ECG When compared with ECG of 24-JUN-2008 13:01, No significant change was found [facility] 12/30/2020 11:2 9 AM CDT 12/30/2020 4:14 PM CDT us Yariel Claros MD ECG ORDERABLES Final Re sult Performing Organization Address [facility] Co de Phone Number [facility] * eGFR (12/30/2020 11:20 AM CDT) eGFR [...] BLOOD ORDERABLES Final Result Performing Organization Address [facility] Co de Phone Number [facility]ON [address] [facility] Department [place] [address] * (ABNORMAL) Differential, auto (12/30/2020 11:20 AM CDT) Neutrophil abs 5.5 1.7 - 6.5 K/cumm [facility] Imm gran abs 0.0 0.0 - 0.1 K/cumm [facility] Lymphocyte abs 2.1 0.8 - 3.3 K/cumm [facility] Monocyte abs 1.1(H) 0.2 - 0.8 K/cumm [facility] Eosinophil abs 0.3 0.0 - 0.5 K/cumm [facility] Basophil abs 0.1 0.0 - 0.1 K/cumm [facility] Neutrophil pct 60.7 % [facility] Comment: Interpretive Data Percent cell count reference ranges are not reported, since discordance with absolute values may lead to misinterpretation of CBC data. Current Interpretive Data was last revised on 2017. Imm gran pct 0.3 % [facility] Comment: Interpretive Data Percent cell count reference ranges are not reported, since discordance with absolute values may lead to misinterpretation of CBC data. Current Interpretive Data was last revised on 2017. Lymphocyte pct 23.4 % [facility] Comment: Interpretive Data Percent cell count reference ranges are not reported, since discordance with absolute values may lead to misinterpretation of CBC data. Current Interpretive Data was last revised on 2017. Monocyte pct 11.6 % [facility] Comment: Interpretive Data Percent cell count reference ranges are not reported, since discordance with absolute values may lead to misinterpretation of CBC data. Current Interpretive Data was last revised on 2017. Eosinophil pct 3.4 % [facility] Comment: Interpretive Data Percent cell count reference ranges are not reported, since discordance with absolute values may lead to misinterpretation of CBC data. Current Interpretive Data was last revised on 2017. Basophil pct 0.6 % [facility] Comment: Interpretive Data Percent cell count reference ranges are not reported, since discordance with absolute values may lead to misinterpretation of CBC data. Current Interpretive Data was last revised on 2017. Blood 12/30/2020 11:2 0 AM CDT 12/30/2020 11:24 AM CDT Herberth Rodgers MD LAB BLOOD ORDERABLES Final Result [address] [address] * Protime-INR (12/30/2020 11:20 AM CDT) [facility] PT 13.3 12.0 - 14.6 sec [facility] INR 1.0 [facility] Comment: Ref Range High Interpretive data [...] BLOOD ORDERABLES Final Result Performing Organization Address [facility] de Phone Number [address] [address] * (ABNORMAL) CBC with auto differential (12/30/2020 11:20 AM CDT) [facility] WBC 9.1 3.8 - 9.9 K/cumm [facility] Hgb 15.1 11.9 - 15.5 g/dL [facility] Hct 47.3(H) 35.6 - 45.5 % [facility] Plt 194 150 - 400 K/cumm [facility] MPV 11.0 9.1 - 12.3 fL [facility] RBC 4.93 3.90 - 5.20 M/cumm [facility] MCV 95.9 81.3 - 96.4 fL [facility] MCH 30.6 27.1 - 33.3 pg [facility] MCHC 31.9(L) 32.3 - 35.7 g/dL [facility] RDW CV 13.2 11.1 - 14.9 % [facility] RDW SD 46.6 35.7 - 48.1 fL [facility] NRBC abs 0.00 0.00 - 0.01 K/cumm [facility] Blood 12/30/2020 11:2 0 AM CDT 12/30/2020 11:24 AM CDT Herberth Rodgers MD LAB BLOOD ORDERABLES Final Result Performing Organization Address [facility] Co de Phone Number [facility] [address] [place] [address] * (ABNORMAL) Basic metabolic panel (12/30/2020 11:20 AM CDT) Pathologist [facility] Sodium 141 135 - 145 mmol/L [facility] Potassium, pl 5.1(H) 3.3 - 4.9 mmol/L [facility] Chloride 99 97 - 110 mmol/L [facility] CO2 31 22 - 32 mmol/L [facility] Anion gap 11 2 - 15 mmol/L [facility] BUN 30(H) 8 - 25 mg/dL [facility] Creatinine 2.80(H) 0.60 - 1.10 mg/dL [facility] Glucose 91 70 - 199 mg/dL [facility] Comment: Interpretive Data Fasting glucose >/= [...] 2017. Calcium 10.0 8.5 - 10.3 mg/dL [facility] Blood 12/30/2020 11:2 0 AM CDT 12/30/2020 11:24 AM CDT Herberth Rodgers MD LAB BLOOD ORDERABLES Final Result Performing Organization Address [facility] Co de Phone Number [address] [email or web address] [address] * aPTT (12/30/2020 11:20 AM CDT) aPTT 34 22 - 37 sec [facility] Comment: Interpretive data aPTT test has not been evaluated for monitoring heparin therapy. The anti-Xa is the preferred test. Current interpretive data was last revised on 2019. Blood 12/30/2020 11:2 0 AM CDT 12/30/2020 11:24 AM CDT us Herberth Rodgers MD LAB BLOOD ORDERABLES Final Result [facility] ELIAZBETH [address] [facility] Department [place] [address] documented in this encounter Visit Diagnoses Diagnosis [...] 12/17 documented in this encounter Care Teams Air Quality Engineer Relationship Specialty Start Date End Date Gaudencio Miranda MD [address] [place] [address] PCP - General 07/25/16 documented as of this encounter
--- OUTSIDE RECORDS SUMMARY | 2024-03-07 17:32 | XMS_ITS | Encounter Summary ---
Author Organization [facility] Address [address] [facility] [address] [place] [address] Care Team Providers Care Baker Bread Name Role Phone Gaudencio Miranda MD Primary Care Provider [phone] Reason for Visit * Reason Onset Date Comments cardiac clearance 02/08/2021 Encounter Details Date Type Department Care Team (Late st Contact Info) Description 02/08/2021 Telephone [facility] Vascular and Vein Surgery [address] [facility] [address] [place] [address] Herberth Rodgers MD [address] [facility] [address] [place] [address] cardiac clearance Social History Tobacco Use Types [...] file Legal Sex Female 12:59 AM ELECTRONIC WARFARE LINGUIST Gender Identity Not on file Sexual Orientation Not on file documented as of this encounter Miscellaneous Notes * Telephone Encounter - Eduarda Ocasio RN - 02/08/2021 11:10 AM ELECTRONIC WARFARE LINGUIST I have faxed this twice. I will refax it again. Will call to see if they received. TRONIC WARFARE LINGUIST * Telephone Encounter - Zhane Coronado - 02/08/2021 10:50 AM CST Pt saw Dr. Peña at [facility] and is needing a cardiac clearance letter faxed to their office for [facility] surgery: [phone] TRONIC WARFARE LINGUIST documented in this encounter Plan of Treatment Not on file documented as of this encounter Visit Diagnoses Not on filedocumented in this encounter Care Teams Baker Bread Relationship Specialty Start Date End Date Gaudencio Miranda MD [address] [place] [address] PCP - General 07/25/16 documented as of this encounter
--- OUTSIDE RECORDS SUMMARY | 2024-03-07 17:32 | XMS_ITS | Encounter Summary ---
Author Organization [facility] Address [address] [facility] [address] [place] [address] Care Team Providers Care Physician/Allergy/Immunology Name Role Phone Gaudencio Miranda MD Primary Care Provider [phone] Encounter Details Date Type Department Care Team (Late st Contact Info) Description 02/08/2021 Telephone [facility] Cardiology [address] [facility] [address] [place] [address] Ed Peña MD [address] [place] [address] Social History Tobacco Use Types Packs/Day [...] on file Legal Sex Female 12:59 AM GLASS LAMINATING OPERATOR Gender Identity Not on file Sexual Orientation Not on file documented as of this encounter Miscellaneous Notes * Telephone Encounter - Lianne Simms RN - 02/08/2021 12:23 PM CST clearance completed and faxed back S LAMINATING OPERATOR * Telephone Encounter - Susana Mack RN - 02/08/2021 10:24 AM GLASS LAMINATING OPERATOR Pt dgt called for echo results-reviewed with her and she also requested cardiac clearance for vascular surgery-advised her to have surgeon send us cardiac clearance request and gave her the fax number. She appreciated the assistance. S LAMINATING OPERATOR documented in this encounter Plan of Treatment Not on file documented as of this encounter Visit Diagnoses Not on filedocumented in this encounter Care Teams Physician/Allergy/Immunology Relationship Specialty Start Date End Date Gaudencio Miranda MD [address] [place] [address] PCP - General 07/25/16 documented as of this encounter
--- OUTSIDE RECORDS SUMMARY | 2024-03-07 17:32 | XMS_ITS | Encounter Summary ---
Author Organization [facility] Healthcare Address [address] [place] [address] Care Team Providers Care Senior Gis Analyst Name Role Phone Miscellaneous, Not In File Primary Care Provider Unavailable Encounter Details Date Type Department Care Team (Latest Contact Info) Description 06/28/2016 2:16 PM CDT - 06/28/2016 11:59 PM CDT Hospital Encounter [facility] [phone] Grace Murillo MD [address] [phone] [place], [place] [id number] Discharge Disposition: Discharge to home or self care Social History Tobacco Use Types Packs/Day Years Used Date Smoking Tobacco: Former Comments Unknown Sex and Gender Information Value Date Recorded Sex Assigned at Not on file Legal 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
--- OUTSIDE RECORDS SUMMARY | 2024-03-07 17:32 | XMS_ITS | Encounter Summary ---
Author Organization [facility] Address [address] [facility] [address] [place] [address] Care Team Providers Care Chief Dog License Inspector Name Role Phone Gaudencio Miranda MD Primary Care Provider [phone] Encounter Details Date Type Department Care Team (Late st Contact Info) Description 02/21/2021 Orders Only [facility] Testing Site - [place], [place] [address] [place] [id number] Herberth Rodgers MD [address] [facility] [address] [address] Pre-op testing (Primary Dx) Social History Tobacco [...] on file Legal Sex Female 12:59 AM FIRE SUPPRESSION CAPTAIN Gender Identity Not on file Sexual Orientation Not on file documented as of this encounter Plan of Treatment Not on file documented as of this encounter Results * COVID-19 Coronavirus RNA Nasopharyngeal (02/21/2021 1:33 PM FIRE SUPPRESSION CAPTAIN) COVID-19 RNA Not Detected [facility] Comment: Interpretive Data Synonyms for this test include: PCR and NAAT . ??Testing performed by the [facility] Molecular Infectious Disease [facility]. The 2019-Novel Coronavirus [...] April 22, 2020. First COVID-19 test? No [facility] Employeed in healthcare? Unknown [facility] status? No [facility] Group care resident? Unknown [facility] Hospitalized? No [facility] Is patient in ICU? No [facility] Symptomatic as defined by CDC? No [facility] Nasopharyngeal 02/21/2021 1: 33 PM FIRE SUPPRESSION CAPTAIN 02/21/2021 7:04 PM FIRE SUPPRESSION CAPTAIN Narrative [facility] [employer] [employer] [facility] - 02/22/2021 3:35 AM FIRE SUPPRESSION CAPTAIN What is the reason for testing?->Screening prior to scheduled procedure or surgery (batch) Herberth Rodgers MD LAB MICROBIOLOGY - GENERAL ORDERABLES Final Result [facility] Department [place] [address] documented in this encounter Visit Diagnoses Diagnosis Pre-op testing- Primary Unspecified pre-operative examination Pre-op testing Unspecified pre-operative examination documented in this encounter Care Teams Chief Dog License Inspector Relationship Specialty Start Date End Date Gaudencio Miranda MD [address] [place] [address] PCP - General 07/25/16 documented as of this encounter
--- OUTSIDE RECORDS SUMMARY | 2024-03-07 17:32 | XMS_ITS | Encounter Summary ---
Author Organization [facility] Healthcare Address [address] [place] [address] Care Team Providers Care Tare Worker Name Role Phone Gaudencio Miranda MD Primary Care Provider [phone] Herberth Rodgers MD Unavailable [phone] Reason for Visit * Auth/Cert Specialty Diagnoses / Procedures Referred By Contac t Referred To Contact Diagnoses End stage renal disease (CMS/HCC) (HCC) End stage renal disease (CMS/HCC) (HCC) [N18.6] Procedures MS CREAT AV FISTULA,AUTOGENOUS GRAFT MS CREAT AV FISTULA,NON-AUTOGENOUS GRAFT LEFT UPPER EXTREMITY ARTERIOVENOUS FISTULA CREATION Referral ID Status Reason Start Date Expiration Date Visits Re quested Visits Authorized [id number] 1 1 Encounter Details Date Type Department Care Team (Late st Contact Info) Description 02/24/2021 3:19 PM PLYWOOD STOCK GRADER Anesthesia Event [address] [address] Bernarda Stephenson MD [address] [place] [address] Efrain Coates MD [address] [place] [address] Anesthesia Record Procedure Summary Procedure Name Responsible [...] Left; Antecubital; 02/19/24 (Retired LDA, Removed/Completed by [employer] with LDA Utility); 1213 (Retired LDA, Removed/Completed by [employer] with LDA Utility) 02/24/21 0000 by Pieter Castillo RN 02/19/24 1213 by Discharge Provider, Automatic RETIRED Surgical Site 02/24/21; Anterior , Left, Upper; Arm; 02/19/24 (Retired LDA, Removed/Completed by [facility] with LDA Utility); 1213 (Retired LDA, Removed/Completed by [facility] with LDA Utility) 02/24/21 0000 by Pieter [...] in place; 02/19/24 (Retired LDA, Removed/Completed by [facility] with LDA Utility); 1213 (Retired LDA, Removed/Completed by [facility] with LDA Utility) 02/24/21 1611 by Pieter [...] on file Legal Sex Female 12:59 AM PLYWOOD STOCK GRADER Gender Identity Not on file Sexual Orientation Not on file documented as of this encounter OR Notes * Anesthesia Postprocedure Evaluation - Bernarda Stephenson MD - 02/24/2021 6:18 PM CST Patient: Peg Son Procedure Summary Date: 02/24/21 Room / Location: [facility] / [facility] Anesthesia Start: 1519 Anesthesia Stop: [...] normothermic Nausea/Vomiting status: none No complications documented. OOD STOCK GRADER * Anesthesia Procedure Notes - Ale Sheridan CRNA - 02/24/2021 3:37 PM PLYWOOD STOCK GRADER Associated Order(s): Airway Airway Patient location: OR Urgency: elective Date/time: 02/24/2021 3:27 PM Indications for airway management: anesthesia Difficult airway: no Staff: Supervising provider: Bernarda Stephenson MD Placed by: CYBER SECURITY ENGINEER: lAe Sheridan CRNA Emergent airway documentation: Risks and benefits discussed: yes Consent obtained: yes Consent given by: patient Airway prep: Preoxygenated: yes Patient position: sniffing Mask difficulty assessment: 0 - not attempted Spontaneous ventilation during airway: absent Sedation level during airway: deep Final airway details: Final airway type: supraglottic airway Final supraglottic airway: classic SGA size: 4 Number of attempts: 1 OOD STOCK GRADER * Anesthesia Preprocedure Evaluation - Bernarda Stephenson MD - 02/24/2021 1:40 PM CST Images from the original note were not included. Anesthesia Evaluation ePg Son is a 70 y.o. female Procedure(s): [...] 12/2020 Previous surgery cancelled R/T possible CP. Subway Repair Supervisor ruled out heart disease, testing negative. ??? [...] Medication protocol when under care of a CYBER SECURITY ENGINEER Planned anesthesia: General Induction: Induction: intravenous. Postoperative Plan: Postoperative administration opioids intended. Informed Consent: Discussed plan with CYBER SECURITY ENGINEER. Anesthesia plan and risks discussed with patient. Consent and Attending signature: I and/or my designee have discussed the anesthesia plan, benefits, possible alternatives, parental presence at time of induction (if indicated), and clinically relevant risks that may include dental injury, unintentional awareness, and/or other complications. The patient and/or parent/legal guardian understand, and agree to proceed. All questions answered. OOD STOCK GRADER documented in this encounter Plan of Treatment Not on file documented as of this encounter Procedures Procedure Name Priority Date/Time Associated Diagnosis Comments MS AN PROCEDURE PLACEHOLDER Routine 02/24/2021 3:27 PM PLYWOOD STOCK GRADER MS AN ELECTIVE SUPRAGLOTTIC AIRWAY Routine 02/24/2021 3:27 PM PLYWOOD STOCK GRADER documented in this encounter Results * MS AN ELECTIVE SUPRAGLOTTIC AIRWAY, MS AN PROCEDURE PLACEHOLDER (02/24/2021 3:27 PM PLYWOOD STOCK GRADER) Narrative Ale Sheridan CRNA - 02/24/2021 3:27 PM PLYWOOD STOCK GRADER Ale Sheridan CRNA ? 02/24/2021 ??3:38 PM Airway Patient location: OR Urgency: elective Date/time: 02/24/2021 3:27 PM Indications for airway management: anesthesia Difficult airway: no Staff: Supervising provider: Bernarda Stephenson MD Placed by: CYBER SECURITY ENGINEER: Ale Sheridan CRNA Emergent airway documentation: Risks [...] Prophylaxis, SurgicalIndications:Prophylaxis, Surgical Given 02/24/2021 3:30 PM PLYWOOD STOCK GRADER 3,000 mg dexAMETHasone (DECADRON) 4 mg/mL injection intravenous, Administer over 2 Minutes, As needed, Starting on Bernarda 02/24/21 at 1526, Anesthesia Intra-op Given 02/24/2021 3:26 PM PLYWOOD STOCK GRADER 8 mg fentaNYL (SUBLIMAZE) preservative free injection intravenous, As needed, Starting on Bernarda 02/24/21 at 1537, Anesthesia Intra-op Given 02/24/2021 4:11 PM PLYWOOD STOCK GRADER 25 mcg Given 02/24/2021 4:09 PM PLYWOOD STOCK GRADER 25 mcg Given 02/24/2021 3:37 PM PLYWOOD STOCK GRADER 50 mcg glycopyrrolate (ROBINUL) injection intravenous, Administer over 1 Minutes, As needed, Starting on Bernarda 02/24/21 at 1541, Anesthesia Intra-op Given 02/24/2021 3:41 PM PLYWOOD STOCK GRADER 0.3 mg lidocaine (cardiac) (XYLOCAINE) preservative free injection intravenous, As needed, Starting on Bernarda 02/24/21 at 1526, Anesthesia Intra-op, Indications: Ventricular ArrhythmiasIndications:Ventr icular Arrhythmias Given 02/24/2021 3:26 PM PLYWOOD STOCK GRADER 60 mg ondansetron (ZOFRAN) injection intravenous, Administer over 2 Minutes, As needed, Starting on Bernarda 02/24/21 at 1611, Anesthesia Intra-op Given 02/24/2021 4:11 PM PLYWOOD STOCK GRADER 4 mg phenylephrine (MAIDA-SYNEPHRINE) 1 mg/10 mL (100 mcg/mL) in sodium chloride 0.9% (premix) intravenous, As needed, Starting on Bernarda 02/24/21 at 1530, Anesthesia Intra-op Given 02/24/2021 3:30 PM PLYWOOD STOCK GRADER 8 mcg phenylephrine (MAIDA-SYNEPHRINE) 25,000 mcg in sodium chloride 0.9% 250 mL (100 mcg/mL) infusion intravenous, Continuous PRN, Starting on Bernarda 02/24/21 at 1533, Anesthesia Intra-op New Bag 02/24/2021 3:33 PM PLYWOOD STOCK GRADER 0.2 mcg/kg/min 16.332 mL/hr propofoL (DIPRIVAN) 10 mg/mL IV intravenous, As needed, Starting on Bernarda 02/24/21 at 1526, Anesthesia Intra-op Given 02/24/2021 3:26 PM PLYWOOD STOCK GRADER 120 mg sodium chloride 0.9% infusion 30 mL/hr, intravenous, Continuous, Starting on Bernarda 02/24/21 at 1300, On hold since Sun02/25/2021 at 0855 until manually unheld New Bag 02/24/2021 11:48 PM PLYWOOD STOCK GRADER 30 mL/hr 30 mL/hr Rate/Dose Verify 02/24/2021 3:19 PM PLYWOOD STOCK GRADER 30 mL/h r New Bag 02/24/2021 12:36 PM PLYWOOD STOCK GRADER 30 mL/hr 30 mL/hr documented in this encounter Care Teams Tare Worker Relationship Specialty Start Date End Date Gaudencio Miranda MD [address] [place] [address] PCP - General 07/25/16 Herberth Rodgers MD [address] [address] Surgeon Surgery 02/24/21 documented as of this encounter
--- OUTSIDE RECORDS SUMMARY | 2024-03-07 17:32 | XMS_ITS | Encounter Summary ---
Author Organization [facility] Medical Group Address [address] [place] [address] Care Team Providers Care Sound Tester Name Role Phone Gaudencio Miranda MD Primary Care Provider [phone] Encounter Details Date Type Department Care Team (Late st Contact Info) Description 12/27/2020 Orders Only [facility] Testing Site - [place], [place] [address] [place] [id number] Herberth Rodgers MD [address] [facility] [address] [address] Pre-op testing (Primary Dx) Social History Tobacco [...] on file Legal Sex Female 12:59 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 ??Testing performed by the [facility]. The 2019-Novel Coronavirus [...] April 22, 2020. First COVID-19 test? Unknown [facility] Employeed in healthcare? Unknown [facility] status? No [facility] Group care resident? Unknown [facility] Hospitalized? No [facility] Is patient in ICU? No [facility] Symptomatic as defined by CDC? No [facility] Nasopharyngeal 12/27/2020 8: 15 PM CDT 12/27/2020 8:55 PM CDT Narrative [facility] - 12/28/2020 8:51 AM CDT What is the reason for testing?->Screening prior to scheduled procedure or surgery (batch) Herberth Rodgers MD LAB MICROBIOLOGY - GENERAL ORDERABLES Final Result [facility] [place] [address] documented in this encounter Visit Diagnoses Diagnosis Pre-op testing- Primary Unspecified pre-operative examination Pre-op testing Unspecified pre-operative examination documented in this encounter Care Teams Sound Tester Relationship Specialty Start Date End Date Gaudencio Miranda MD [address] [place] [address] PCP - General 07/25/16 documented as of this encounter
--- OUTSIDE RECORDS SUMMARY | 2024-03-07 17:32 | XMS_ITS | Encounter Summary ---
Author Organization [facility] Medical Group Address [address] [place] [address] Care Team Providers Care Office Analyst Name Role Phone Gaudencio Miranda MD Primary Care Provider [phone] Encounter Details Date Type Department Care Team (Late st Contact Info) Description 12/24/2020 Documentation [facility] Medical Group Vascular and Vein Surgery [address] [place] [address] Eduarda Ocasio RN Social History Tobacco Use Types Packs/Day Years Used Date Smoking Tobacco: Former Comments Unknown Sex and Gender Information Value Date Recorded Sex Assigned at Not on file Legal Sex Female 12:59 AM GYN PHYSICIAN Gender Identity Not on file Sexual Orientation Not on file documented as of this encounter Progress Notes * Eduarda Ocasio RN - 12/24/2020 10:26 AM CDT No prior auth required for cpt codes: 83726, 24770. Ref# [id number] per [employer] Medicare documented in this encounter Plan of Treatment Not on file documented as of this encounter Visit Diagnoses Not on filedocumented in this encounter Care Teams Office Analyst Relationship Specialty Start Date End Date Gaudencio Miranda MD [address] [place] [address] PCP - General 07/25/16 documented as of this encounter
--- OUTSIDE RECORDS SUMMARY | 2024-03-07 17:32 | XMS_ITS | Encounter Summary ---
Author Organization [facility] Facility Care Team Providers Care Quality Process Engineer Name Role Phone Gaudencio Miranda MD Primary Care Provider [phone] Encounter Details Date Type Department Care Team (Late st Contact Info) Description 09/04/2013 7:02 PM CDT - 03/18/2014 11:59 PM SUPERVISOR TYPE PHOTOGRAPHY Hospital Encounter [facility] Grace Lanier MD [address] [facility] [address] [facility] [id number] [place], [place] [id number] Other chronic pain; Cervical spondylosis without myelopathy; [...] on file Legal Sex Female 12:59 AM SUPERVISOR TYPE PHOTOGRAPHY Gender Identity Not on file Sexual Orientation [...] leg documented in this encounter Care Teams Quality Process Engineer Relationship Specialty Start Date End Date Gaudencio Miranda MD [address] [place] [address] PCP - General 08/05/13 06/27/16 documented as of this encounter
--- OUTSIDE RECORDS SUMMARY | 2024-03-07 17:32 | XMS_ITS | Encounter Summary ---
Author Organization [facility] Medical Group Address [address] [place] [address] Care Team Providers Care List Of First Job Ideas Name Role Phone Gaudencio Miranda MD Primary Care Provider Encounter Details Date Type Department Care Team (Late st Contact Info) Description 12/24/2020 Orders Only [facility] Medical [facility] Vascular and Vein Surgery [address] [place] [address] Eduarda Ocasio RN Pre-op testing (Primary Dx) Social History Tobacco Use Types Packs/Day Years Used Date Smoking Tobacco: Former Comments Unknown Sex and Gender Information Value Date Recorded Sex Assigned at Not on file Legal Sex Female 12:59 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
--- OUTSIDE RECORDS SUMMARY | 2024-03-07 17:32 | XMS_ITS | Encounter Summary ---
Author Organization [facility] Healthcare Address [address] [place] [address] Care Team Providers Care Deck Lid Fitter Name Role Phone Miscellaneous, Not In File Primary Care Provider Unavailable Encounter Details Date Type Department Care Team (Latest Contact Info) Description 06/28/2016 4:42 PM CDT - 06/28/2016 11:59 PM CDT Hospital Encounter [facility] OP INTERIM [phone] David Gentile MD [address] [phone] [place] [address] Discharge Disposition: Discharge to home or self care Social History Tobacco Use Types Packs/Day Years Used Date Smoking Tobacco: Former Comments Unknown Sex and Gender Information Value Date Recorded Sex Assigned at Not on file Legal Sex Female 12:59 AM SHAKE LOADER Gender Identity Not on file Sexual Orientation [...] M.D. FINAL REPORT ACC# ??Date Time ??Exam [id number] Jun 28, 2016 17:07:00 13004 Spine Lumbar 2 or 3 views EXAMINATION: [...] MONROY M.D. on Jun 29 2016 ??6:35A [id number] Procedure Note Miscellaneous, Notinfile / Provider, MD Sundar - 08/11/2016 DELMY MONROY M.D. FINAL REPORT ACC# Date Time Exam [id number] Jun 28, 2016 17:07:00 03784 Spine Lumbar 2 or 3 views EXAMINATION: [...] MONROY M.D. on Jun 29 2016 6:35A [id number] us Not In File Miscellaneous IMG XR PROCEDURES Destiney l Result documented in this encounter Visit Diagnoses Not on filedocumented in this encounter Care Teams Deck Lid Fitter Relationship Specialty Start Date End Date Miscellaneous, Not In File PCP - General 06/28/16 7 documented as of this encounter
--- OUTSIDE RECORDS SUMMARY | 2024-03-07 17:32 | XMS_ITS | Encounter Summary ---
Author Organization [facility] Address [address] [place] [address] Care Team Providers Care Export Manager Name Role Phone Gaudencio Miranda MD Primary Care Provider [phone] Reason for Referral * Cardiology (Routine) - Closed Specialty Diagnoses / Procedures Referred By Mallory valentino Referred To Contact Diagnoses Other chest pain PIERRE (dyspnea on exertion) Preop cardiovascular exam Procedures Transthoracic Echo Complete W Doppler/CF Stacy Peña MD [address] [address] Phone: tel: fax: [facility] Referral ID Status Reason Start Date Expiration Date Visits Re quested Visits Authorized [id number] Closed 01/17/2021 02/16/2022 1 1 Reason for Visit * Reason Comments New Patient chest discomfort Pre-op Exam having graft put in for dialysis * Consultation (Routine) - Closed Specialty Diagnoses / Procedures Referred By Mallory valentino Referred To Contact Cardiology Diagnoses Chest discomfort Pre-operative clearance Herberth Rodgers MD [address] [place] [address] Phone: tel: fax: Stacy Peña MD [address] [address] Phone: tel: fax: Referral ID Status Reason Start Date Expiration Date V isits Requested Visits Authorized [id number] Closed Specialty Services Required 12/31/2020 01/30/2022 1 1 Encounter Details Date Type Department Care Team (Latest Contact Info) Description 01/17/2021 3:00 PM CDT Office Visit [facility] Cardiology [address] [place] [address] Stacy Peña MD [address] [place] [address], [place] [address] Other chest pain (Primary Dx); [...] on file Legal 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 Denies palpitations, syncope. Her shaper operator is Dr. Penaloza. GFR is 15 MEDICAL [...] office in Five months. Stacy Peña MD CUTTER documented in this encounter Plan of Treatment Not on file documented as of this encounter Procedures Procedure Name Priority Date/Time Associated Diagnosis Comments POCT LIPID PANEL Routine 01/17/2021 3:45 PM CDT Other hyperlipidemia documented in this encounter Results * TRANSTHORACIC ECHO (TTE) COMPLETE W DOPPLER/CF W CONTRAST (02/07/2021 2:57 PM CUBE CUTTER) Anatomical Region Laterality Modality Ultrasound 02/07/2021 1:35 PM CUBE CUTTER Narrative 02/07/2021 7:19 PM CUBE CUTTER [facility] Cardiology [address], [place] [address] [address] [facility] [address], [place] [address] P:[phone] P:[phone] Echocardiographic Report Patient Name: PEG SON : 1950 Study Date: 02/07/2021 1:35:00 PM Gender: F Tech: Location: [place] Ref.Provider: STACY PEÑA Height(Cm): 173 BSA: 2.43 [...] Interpretation Site: Exam was interpreted at [facility]. Left Ventricle: Normal left ventricular systolic function. [...] Electronically Signed By: Geena Tran MD, [facility] 2021-02-07 19:19:45 CUBE CUTTER Procedure Note Geena Tran MD - 02/07/2021 [facility] Cardiology [address] [facility] [address], [place] [address] [address] [facility] [address] [place], [place] [address] P:[phone] P:[phone] Echocardiographic Report Patient Name: PEG SONPatient ID: [id number] : [id number] Date: 02/07/2021 1:35:00 PM Gender: FAccession #: [id number] Tech: GMLocation: [place] Ref.Provider: Horacio PEÑAt(Cm): 173 BSA: 2.43Weight(Kg): 136.08 [...] 16.00 - 28.00 ] cc/m2 MV Decel [id number] [ 150 - 200 ] msec ACS MM 1.83 cm PV Peak Vel1.34 [ 0.40 - 0.80 ] m/s E'0.07 E/E' 10 Findings: Interpretation Site: Exam was interpreted at [facility]. Left Ventricle: Normal left ventricular systolic function. [...] By: Geena Tran MD, FACC 2021-02-07 19:19:45 CUBE CUTTER us Stacy Peña MD CV ECHO PROCEDURES [...] 01/17/2021 documented in this encounter Care Teams Export Manager Relationship Specialty Start Date End Date Gaudencio Miranda MD [address] [place] [address] PCP - General 07/25/16 documented as of this encounter
--- OUTSIDE RECORDS SUMMARY | 2024-03-07 17:32 | XMS_ITS | Encounter Summary ---
Author Organization [facility] Medical Group Address [address] [place] [address] Care Team Providers Care Cage Clerk Name Role Phone Gaudencio Miranda MD Primary Care Provider Encounter Details Date Type Department Care Team (Late st Contact Info) Description 12/24/2020 Telephone [facility] Medical [facility] Vascular and Vein Surgery [address] 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
--- OUTSIDE RECORDS SUMMARY | 2024-03-07 17:32 | XMS_ITS | Encounter Summary ---
Author Organization [facility] Medical Group Address [address] [place] [address] Care Team Providers Care Equipment Planner Name Role Phone Gaudencio Miranda MD Primary Care Provider [phone] Encounter Details Date Type Department Care Team (Late st Contact Info) Description 12/31/2020 Telephone [facility] Vascular and Vein Surgery [address] [facility] [address] [place] [address] Herberth Rodgers MD [address] [facility] [address] [place], [place] [id number] Social History Tobacco Use Types Packs/Day Years [...] on file 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 Pt r/s for procedure on 02/24. Pt daughter notified. WARDEN * Telephone Encounter - Eduarda Ocasio RN - 01/26/2021 2:48 PM CST Pt scheduled for Echo with Dr. Bourne on 02/07. At that point we will know if pt cleared for surgery. WARDEN * Telephone Encounter - Aditi Bran - 01/03/2021 8:48 AM CDT Thank You * Telephone Encounter - Eduarda Ocasio RN - 12/31/2020 10:07 AM CDT Pt surgery was cx yesterday due to pt c/o intermittent chest discomfort. Dr. Rodgers wants her to get cardiac clearance before he does this procedure. Pt requesting to be seen with her husbands machine grainer, Dr. Mariana Arce in [place]. Called them to get her an appointment. [...] Dr Rodgers. She can be reached @ [phone] documented in this encounter Plan of Treatment Not on file documented as of this encounter Visit Diagnoses Not on filedocumented in this encounter Care Teams Equipment Planner Relationship Specialty Start Date End Date Gaudencio Miranda MD [address] [place] [address] PCP - General 07/25/16 documented as of this encounter
--- OUTSIDE RECORDS SUMMARY | 2024-03-07 17:32 | XMS_ITS | Encounter Summary ---
Author Organization [facility] Healthcare Address [address] [place] [address] Care Team Providers Care Data Analytics Developer Name Role Phone Gaudencio Miranda MD Primary Care Provider [phone] Encounter Details Date Type Department Care Team (Late st Contact Info) Description 12/30/2020 11:59 PM CDT Anesthesia Event [address] [address] Keren Penaloza MD [address] [place] [address] [address] Yariel Claros MD [address] [place] [address] Anesthesia Record Procedure Summary Procedure Name Responsible [...] on file Legal Sex Female 12:59 AM SUPERINTENDENT OF GENERATION Gender Identity Not on file Sexual Orientation [...] that she had discussed it with her steel die printer a year ortwo ago and that the [...] 180 mg tablet -- -- Provider, MD uSndar furosemide (LASIX) 40 mg tablet -- -- [...] Medication protocol when under care of a INTERNSHIP COORDINATOR Planned anesthesia: General Informed Consent: Anesthesia plan [...] on filedocumented in this encounter Care Teams Data Analytics Developer Relationship Specialty Start Date End Date Gaudencio Miranda MD [address] [place] [address] PCP - General 07/25/16 documented as of this encounter
--- OUTSIDE RECORDS SUMMARY | 2024-03-07 17:32 | XMS_ITS | Encounter Summary ---
Author Organization [facility] Address [address] [place] [address] Care Team Providers Care Manager Flight Operations Name Role Phone Gaudencio Miranda MD Primary Care Provider [phone] Herberth Rodgers MD Unavailable [phone] Encounter Details Date Type Department Care Team (Late st Contact Info) Description 02/24/2021 Orders Only [facility] Vascular and Vein Surgery [address] [place] [address] [place] [address] [place] [address] [address] [place] [address] Social History Tobacco Use Types Packs/Day Years [...] on file 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
--- OUTSIDE RECORDS SUMMARY | 2024-03-07 17:32 | XMS_ITS | Encounter Summary ---
Author Organization [facility] Healthcare Address [address] [place] [address] Care Team Providers Care Blade Bender Furnace Tender Name Role Phone Gaudencio Miranda MD Primary Care Provider [phone] Encounter Details Date Type Department Care Team (Latest Contact Info) Description 07/25/2016 12:09 PM CDT - 07/25/2016 11:59 PM T Hospital Encounter [facility] OP INTERIM [phone] Grace Murillo MD [address] [phone] [place] [address] Discharge Disposition: Discharge to home or self care Social History Tobacco Use Types Packs/Day Years Used Date Smoking Tobacco: Former Comments Unknown Sex and Gender Information Value Date Recorded Sex Assigned at Not on file 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
--- OUTSIDE RECORDS SUMMARY | 2024-03-07 17:32 | XMS_ITS | Encounter Summary ---
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
--- OUTSIDE RECORDS SUMMARY | 2024-03-07 17:32 | XMS_ITS | Encounter Summary ---
Author Organization [facility] Healthcare Address [address] [place] [address] Care Team Providers Care Employee Relations Representative Name Role Phone Gaudencio Miranda MD Primary Care Provider [phone] Encounter Details Date Type Department Care Team (Late st Contact Info) Description 02/21/2021 5:10 PM RECRUITING ASSOCIATE Lab [address] [address] Pre-op testing Social History Tobacco Use Types [...] on file Legal Sex Female 12:59 AM RECRUITING ASSOCIATE Gender Identity Not on file Sexual Orientation Not on file documented as of this encounter Plan of Treatment Not on file documented as of this encounter Procedures Procedure Name Priority Date/Time Associated Diagnosis Comments COVID-19 CORONAVIRUS RNA Routine 02/21/2021 1:33 PM RECRUITING ASSOCIATE Pre-op testing documented in this encounter Results * COVID-19 Coronavirus RNA Nasopharyngeal (02/21/2021 1:33 PM RECRUITING ASSOCIATE) COVID-19 RNA Not Detected [facility] Comment: Interpretive Data Synonyms for this test include: PCR and NAAT . ??Testing performed by the [facility] Molecular Infectious Disease Laboratory. The [...] April 22, 2020. First COVID-19 test? No [facility] Employeed in healthcare? Unknown [facility] status? No [facility] Group care resident? Unknown [facility] Hospitalized? No [facility] Is patient in ICU? No [facility] Symptomatic as defined by CDC? No [facility] Nasopharyngeal 02/21/2021 1: 33 PM RECRUITING ASSOCIATE 02/21/2021 7:04 PM RECRUITING ASSOCIATE Narrative [facility] - 02/22/2021 3:35 AM RECRUITING ASSOCIATE What is the reason for testing?->Screening prior to scheduled procedure or surgery (batch) Herberth Rodgers MD LAB MICROBIOLOGY - GENERAL ORDERABLES Final Result [facility] Department [place] [address] documented in this encounter Visit Diagnoses Diagnosis Pre-op testing Unspecified pre-operative examination documented in this encounter Care Teams Employee Relations Representative Relationship Specialty Start Date End Date Gaudencio Miranda MD [address] [place] [address] PCP - General 07/25/16 documented as of this encounter
--- OUTSIDE RECORDS SUMMARY | 2024-03-07 17:32 | XMS_ITS | Encounter Summary ---
Author Organization [facility] Medical Group Address [address] [place] [address] Care Team Providers Care Dietary Director Name Role Phone Gaudencio Miranda MD Primary Care Provider [phone] Reason for Visit * Reason Comments Follow-up ESRD Encounter Details Date Type Department Care Team (Late st Contact Info) Description 12/15/2020 3:00 PM CDT Office Visit [facility] Medical [facility] Vascular and Vein Surgery [address] [place] [address] [place] [address] [place] [address] [address] [place] [address] End stage renal disease (CMS/HCC) (HCC) (Primary [...] on file Legal Sex Female 12:59 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 Attends Mandaeism Services: Not on file ??? Active Member [...] this visit: End stage renal disease (CMS/HCC) ([facility]) (Primary) Assessment & Plan: Patient has chronic [...] CDT Associated Problem(s): End stage renal disease (CMS/[facility]) ([facility]) Patient has chronic kidney disease stage 5 [...] hyperlipidemia documented in this encounter Care Teams Dietary Director Relationship Specialty Start Date End Date Gaudencio Miranda MD [address] [place] [address] PCP - General 07/25/16 documented as of this encounter
--- OUTSIDE RECORDS SUMMARY | 2024-03-07 17:32 | XMS_ITS | Encounter Summary ---
Author Organization [facility] Healthcare Address [address] [place] [address] Care Team Providers Care Reed Dipper Name Role Phone Gaudencio Miranda MD Primary Care Provider [phone] Herberth Rodgers MD Unavailable [phone] Reason for Visit * Auth/Cert Specialty Diagnoses / Procedures Referred By Contmarilee t Referred To Contact Diagnoses End stage renal disease (CMS/HCC) (HCC) End stage renal disease (CMS/HCC) (HCC) [N18.6] Procedures LA CREAT AV FISTULA,AUTOGENOUS GRAFT LA CREAT AV FISTULA,NON-AUTOGENOUS GRAFT LEFT UPPER EXTREMITY ARTERIOVENOUS FISTULA CREATION Referral ID Status Reason Start Date Expiration Date Visits Re quested Visits Authorized [id number] 1 1 Encounter Details Date Type Department Care Team (Late st Contact Info) Description 02/24/2021 1:15 PM COVER OPERATOR - 02/24/2021 3:00 PM COVER OPERATOR Surgery [facility] OR [address] [place] [address] Herberth Rodgers MD [address] [address] LEFT UPPER EXTREMITY ARTERIOVENOUS FISTULA CREATION Surgery [...] on file Legal Sex Female 12:59 AM COVER OPERATOR Gender Identity Not on file Sexual Orientation Not on file documented as of this encounter Last Filed Vital Signs Vital Sign Reading Time Taken Comments Blood Pressure 148/70 02/24/2021 12:36 PM COVER OPERATOR Pulse 71 02/24/2021 12:48 PM COVER OPERATOR Temperature 37.1 ??C (98.8 ??F) 02/24/2021 12:[address] Respiratory Rate 18 02/24/2021 12:36 PM COVER OPERATOR Oxygen Saturation 96% 02/24/2021 12:36 PM COVER OPERATOR Inhaled Oxygen Concentration - - Weight - [...] supplemental O2 with clinic follow up with switchboard operator assistant for evaluation and management of Lung mass/fibrosis [...] Your Medications These medications were sent to [id number] - [place], [place] - [address] [facility] [address] [facility] [id number] ?? albuterol HFA 90 mcg/actuation inhaler ?? [...] Center 03/09/2021 11:00 AM Herberth Rodgers MD [facility] BLV 120 MG Decent 08/01/2021 11:00 AM Stacy Peña MD MG CAR MRYVL MG Decent Contact Information for Follow-ups Herberth Rodgers MD Specialty: Surgery, Vascular Surgery, General Surgery Relationship: Surgeon [address] [place] [address] [address] [facility] [id number] Next Steps: Follow up Comments: Follow-up with Dr. Rodgers in office within 1-2 weeks. Please call for appointment. Questions: To provider: HERBERTH RODGERS Salik, MD Specialty: Pulmonary Disease, Internal Medicine, Critical Care Med [facility] [address] DYE Rosa M [facility] [address] Next Steps: Schedule an appointment as soon as possible for a visit in 2 week(s) Gaudencio Miranda MD Specialty: Family Medicine, Internal Medicine Relationship: PCP - General [address] [place], [place] [address] [address] Next Steps: Follow up in 1 week(s) [...] validated. Cece Veras MD 10:30 PM 02/27/2021 [facility] Hospitalist Group R OPERATOR documented in this encounter Discharge Instructions * Attachments The following attachments cannot be sent through Care Everywhere. * Arteriovenous Fistula Creation for Hemodialysis (Discharge Care) (Niuean) documented in this encounter Medications at Time [...] 1L at rest and 2L with activity. SUPERVISOR [employer]CRA[employer] MAINTENANCE faxed clinical information to [facility]. Tube Heater to bring tank out after everything is received and benefits are verified. SUPERVISOR [employer] MAINTENANCE was informed it could be later this evening before everything is verified. KAROL Hays 02/27/2021 4:30 PM R OPERATOR * Vance Turcios, SUMI - 02/27/2021 4:04 [...] NC w/ activity $ Oximetry Multiple Yes R OPERATOR * Padmini Trinh MD - 02/27/2021 1:52 [...] to the use of voice recognition software. R OPERATOR * Anne Gottlieb, DIESEL ENGINE INSPECTOR - 02/27/2021 9:55 AM CST 02/27/21 0950 PT Last Visit Session Type Treatment PT [...] Date Expected End Date End Date PT [facility] - [facility] 1 02/25/21 03/04/21 -- Goal Details: Will perform AAROM/AROM ex x B LE x 10 reps until indep - Goal Start Date Expected End Date End Date PT [facility] - [facility] 2 02/25/21 03/04/21 -- Goal Details: Will transfer bed<>chair with wheeled walker and min assist of 1 and cues Goal Start Date Expected End Date End Date PT [facility] 3 02/25/21 03/04/21 -- Goal Details: Will amb 50 ft with wheeled walker and min assist of 1 and cues Pt progressing towards all goals R OPERATOR * Cece Veras MD - 02/27/2021 7:21 [...] Complete W Doppler/CF Result Date: 02/07/2021 Narrative: [facility] Medical Group Cardiology [address], [place] [address] [address], [place] [address] P:[phone] P:[phone] Echocardiographic Report Patient Name: PEG SON : 1950 Study Date: 02/07/2021 1:35:00 PM Gender: F Tech: Location: [place] Ref.Provider: STACY PEÑA Height(Cm): 173 BSA: 2.43 [...] Findings: Interpretation Site: Exam was interpreted at [facility]. Left Ventricle: Normal left ventricular systolic function. [...] used. Electronically Signed By: Geena Tran MD, [facility] 2021-02-07 19:19:45 COVER OPERATOR Current Facility-Administered Medications Medication Dose Route Frequency [...] Once PRN Kiera Quintana MD ??? multivit ggdavfmm-mfrp-AW-calcium (THERA-M) tablet 1 tablet 1 tablet oral [...] Problem: Acute respiratory failure with hypoxia (CMS/HCC) ([facility] Active Problems: Fibromyalgia Other hyperlipidemia End stage renal disease (CMS/HCC) ([facility]) Hypoxia Resolved Problems: No resolved hospital problems. [...] Cymbalta Hypothyroidism Continue levothyroxine Voice recognition software SocMetrics Direct was used dictate and transcribe this document. Web Software Engineer variances may occur. Despite proofreading, typographical errors may occur. Cece Veras MD 02/27/2021 7:21 AM R OPERATOR * Padmini Trinh MD - 02/26/2021 1:23 [...] to the use of voice recognition software. R OPERATOR R OPERATOR * Pieter Funes, DIESEL ENGINE INSPECTOR - 02/26/2021 10:20 AM CST Physical Therapy [...] Date Expected End Date End Date PT [facility] 1 02/25/21 03/04/21 -- Goal Details: Will perform AAROM/AROM ex x B LE x 10 reps until indep Goal Start Date Expected End Date End Date PT [facility] 2 02/25/21 03/04/21 -- Goal Details: Will transfer bed<>chair with wheeled walker and min assist of 1 and cues met Goal Start Date Expected End Date End Date PT [facility] 3 02/25/21 03/04/21 -- Goal Details: Will [...] posted at bedside and within medical record. R OPERATOR * Андрей Valdes MD - 02/26/2021 8:07 AM CST Vascular Surgery Daily Progress Patient Name/MRN: Peg Son [id number] Treatment Team: Vascular Surgery Attending: Cece Veras MD Today's Date: 02/26/2021 Room/Bed: [place] [id number] Admit Date: 02/24/2021 Code Status: Full Code [...] Once PRN Kiera Quintana MD ??? multivit naukctyt-spae-ET-calcium (THERA-M) tablet 1 tablet 1 tablet oral [...] As per medical consultants Андрей Valdes MD R OPERATOR * Cece Veras MD - 02/26/2021 7:21 [...] EKG/Min 68 BPM Atrial Rate 68 BPM LA-Interval (MSEC) 198 ms QRS-Interval (MSEC) 104 ms QT-Interval (MSEC) 386 ms QTc 410 ms P [place] 76 degrees R [place] -47 degrees T [place] 42 degrees Diagnosis Normal sinus rhythm Left [...] Complete W Doppler/CF Result Date: 02/07/2021 Narrative: [facility] Medical Group Cardiology [address] [facility] [address] [id number] [address] [facility] [address], [place] [address] P:[phone] P:[phone] Echocardiographic Report Patient Name: PEG SON : 1950 Study Date: 02/07/2021 1:35:00 PM Gender: F Tech: Location: [place] Ref.Provider: STACY PEÑA Height(Cm): 173 BSA: 2.43 [...] Findings: Interpretation Site: Exam was interpreted at [facility]. Left Ventricle: Normal left ventricular systolic function. [...] used. Electronically Signed By: Geena Tran MD, [facility] 2021-02-07 19:19:45 COVER OPERATOR Current Facility-Administered Medications Medication Dose Route Frequency [...] Once PRN Kiera Quintana MD ??? multivit rqpvhufa-enxu-ZG-calcium (THERA-M) tablet 1 tablet 1 tablet oral [...] Problem: Acute respiratory failure with hypoxia (CMS/HCC) ([facility]) Active Problems: Fibromyalgia Other hyperlipidemia End stage renal disease (CMS/HCC) ([facility]) Resolved Problems: No resolved hospital problems. Acute [...] Cymbalta Hypothyroidism Continue levothyroxine Voice recognition software SocMetrics Direct was used dictate and transcribe this document. Web Software Engineer variances may occur. Despite proofreading, typographical errors may occur. Cece Veras MD 02/26/2021 7:21 AM R OPERATOR * Ailyn Rainey RN - 02/25/2021 3:31 [...] transport arranged?: No (02/24/212102) Health Insurance Coverage: [facility] Medicare Prescription Coverage: [facility] Primary Care Provider: Gaudencio Miranda MD Prior [...] To assure access to community resources. Ailyn S. Redd, RN R OPERATOR * Parveen Garcias - 02/25/2021 10:09 AM CST Pt appreciated the visit but she did not indicate a desire for spiritual support. 02/25/21 1000 Time Spent Start Time 1009 Patient Spiritual Assessment Spirituality Assessed Yes Mormonism Affiliation None Active in Jew No Clinical Encounter Type Visited With Patient Response Type Routine visit R OPERATOR * Ashli Mora, PT - 02/25/2021 8:53 [...] to upper level. Prior Function Level of [place] Needs assistance with ADLs;Dependent with homemaking;Independent with [...] strength;Decreased endurance;Impaired balance;Decreased mobility;Pain Recommendation/Plan PT Recommendation/Plan Retirement Facility PT Frequency 5-7x/wk Treatment/Interventions Balance Training;Bed mobility;Endurance training;Functional activity;Functional transfer training;Gait training;Strengthening;Therapeutic activity;Therapeutic exercise;Transfer training PT - Next Appointment 03/11/21 PT Evaluation Complete Yes Multi-Disciplinary Problems (from Physical Therapy) Active Problems Problem: PT [facility] Start Date: 02/25/21 Goal Start Date Expected End Date End Date PT [facility] 1 02/25/21 03/04/21 -- Goal Details: Will perform AAROM/AROM ex x B LE x 10 reps until indep Goal Start Date Expected End Date End Date PT [facility] 2 02/25/21 03/04/21 -- Goal Details: Will transfer bed<>chair with wheeled walker and min assist of 1 and cues Goal Start Date Expected End Date End Date PT [facility] 3 02/25/21 03/04/21 -- Goal Details: Will [...] posted at bedside and within medical record. R OPERATOR * Kelsea Chung, OT - 02/25/2021 8:52 AM CST Occupational Therapy 02/25/21 0880 General Chart Reviewed Yes Session Type Evaluation [...] in the home. Prior Function Level of [place] Independent functional transfers;Independent with ambulation;Needs assistancewith ADLs;Needs [...] Plan of care initiated Recommendation/Plan OT Recommendation Retirement [facility] OT Recommendation/Plan Comments Pt presents with functional decline, hx of falls, and decreased safety awareness; will benefit from [place] services at [place] to promote return to PLOF/daily routine. OT Frequency 3-5x/wk Treatment/Interventions ADL/IADL retraining;Balance Training;Bed mobility;Endurance training;Compensatory technique education;Equipment eval/education;Functional activity;Functional mobility training;Functional transfer training;Parent/caregiver training and education;Strengthening;Therapeutic activity;Therapeutic exercise;Transfer training OT - Next Appointment 03/11/21 OT Evaluation Complete Yes Multi-Disciplinary Problems (from Occupational Therapy) Active Problems Problem: OT Misc Start Date: 02/25/21 Goal Start Date Expected End Date End Date OT [facility] 1 02/25/21 03/04/21 -- Goal Details: 1) UE AND LE ADL FROM CHAIR WITH MIN ASSIST WITH WW AND AE PRN. Goal Start Date Expected End Date End Date OT [facility] 2 02/25/21 03/04/21 -- Goal Details: 2) FUNCTIONAL MOBILITY TO/FROM BATHROOM AND ALL ASPECTS TOILETING SBA WITH DME. Goal Start Date Expected End Date End Date OT [facility] 3 02/25/21 03/04/21 -- Goal Details: 3) STAND AT SINK X4 MIN FOR ADL WITH GOOD BALANCE. Goal Start Date Expected End Date End Date [facility] 4 02/25/21 03/04/21 -- Goal Details: 4) [...] level of functional performance prior to evaluation. R OPERATOR * Cece Veras MD - 02/25/2021 8:44 [...] Complete W Doppler/CF Result Date: 02/07/2021 Narrative: [facility] Medical Group Cardiology [address], [place] [address] [address], [place] [address] P:[phone] P:[phone] Echocardiographic Report Patient Name: PEG SON : 1950 Study Date: 02/07/2021 1:35:00 PM Gender: F Tech: Location: [place] Ref.Provider: STACY PEÑA Height(Cm): 173 BSA: 2.43 [...] Findings: Interpretation Site: Exam was interpreted at [facility]. Left Ventricle: Normal left ventricular systolic function. [...] used. Electronically Signed By: Geena Tran MD, [facility] 2021-02-07 19:19:45 COVER OPERATOR Current Facility-Administered Medications Medication Dose Route Frequency Provider Last Rate Last Admin ??? acetaminophen (TYLENOL) tablet 650 mg 650 mg oral Q4H PRN Kiera Quintana MD ??? calcitRIOL (ROCALTROL) capsule 0.25 mcg 0.25 mcg oral Once per day on Sun Keira Quintana MD ??? cholecalciferol (VITAMIN D-3) tablet [...] Once PRN Kiera Quintana MD ??? multivit aaaoozdz-vbbo-HG-calcium (THERA-M) tablet 1 tablet 1 tablet oral [...] Other hyperlipidemia End stage renal disease (CMS/HCC) ([facility]) Resolved Problems: No resolved hospital problems. Acute [...] Cymbalta Hypothyroidism Continue levothyroxine Voice recognition software SocMetrics Direct was used dictate and transcribe this document. Web Software Engineer variances may occur. Despite proofreading, typographical errors may occur. Cece Veras MD 02/25/2021 8:44 AM R OPERATOR documented in this encounter H&P Notes * [...] 12/2020 Previous surgery cancelled R/T possible CP. Pet Store Merchandiser ruled out heart disease, testing negative. ??? [...] Problems: Fibromyalgia-continue Cymbalta, Lyrica, and as needed [place] Other hyperlipidemia-continue rosuvastatin End stage renal disease [...] formulating a treatment plan Voice recognition software Updater Fluency Direct may have been used dictate and transcribe this document. Web Software Engineer variances may occur. Despite proofreading, typographical errors may occur R OPERATOR * Herberth Rodgers MD - 02/24/2021 2:56 PM CST Vascular Surgery History and Physical Patient Name/MRN: Peg Son [id number] Treatment Team: Vascular Surgery Attending: Herberth Rodgers [...] 12/2020 Previous surgery cancelled R/T possible CP. Pet Store Merchandiser ruled out heart disease, testing negative. ??? [...] Gaudencio Miranda MD Primary Care Physician number: [phone] Review of Systems: Constitutional: Negative for activity [...] Principal Problem: End stage renal disease (CMS/HCC) ([facility]) Impression: End-stage renal disease Plan: Left arm AV fistula possible graft. The procedure and all risks have been explained. R OPERATOR documented in this encounter Consult Notes * [...] to the use of voice recognition software. R OPERATOR documented in this encounter Nursing Notes * Ana Power RN - 02/25/2021 5:51 AM CST Patient AOx4, on 3L nc. Vitals stable, received prn [place] for back pain. Abnormal abg- results reported to Dr. Quintana. Left arm nwb after av fistula creation, +1 radial pulse, minimal pain. Historyof frequent falls at home my knees give out . PT and OT to evaluate. Distended abdomen, says she has difficulty voiding completely. Pt also says she she has a hard time swallowing sometimes. Passed bedside swallow eval. R OPERATOR * Ana Marlow RN - 02/24/2021 6:43 [...] hospitalist for eval and heagreed. Hospitalist paged. R OPERATOR documented in this encounter Miscellaneous Notes * [...] for the Shift: fall prevention, pain management R OPERATOR * Elizabeth Vergara MSW - 02/27/2021 4:10 [...] 1605 $ Oximetry Multiple Yes 02/27/21 1603 R OPERATOR * Plan of Care - Ana Power, CACHORRO - 02/27/2021 6:15 AM CST Problem: Health Behavior: Goal: Understanding of discharge needs will improve Outcome: Progressing Problem: Safety: Goal: Will remain free from falls Outcome: Progressing Problem: Activity: Goal: Mobility will improve Outcome: Progressing R OPERATOR * Plan of Care - Mary Fry [...] for the Shift: fall prevention, pain management R OPERATOR * Plan of Care - Ana Power [...] to monitor. Weaned to 1L at 5am. R OPERATOR R OPERATOR * Plan of Care - Marion Mora RN - 02/25/2021 4:31 PM COVER OPERATOR Problem: Facility Isolation Psychosocial Wellbeing Description: Resident [...] air. Patient currently on 2L/min vianasal cannula. R OPERATOR * Significant Event - Mirian Deras RRT - 02/24/2021 11:38 PM CST Notified RN Ana Waldron of critical results R OPERATOR * Perioperative Nursing Note - Diana Dolan RN - 02/24/2021 8:20 PM COVER OPERATOR Pt tx to inpatient floor. Bedside shift report given to RN R OPERATOR * Perioperative Nursing Note - Radha Florez RN - 02/24/2021 5:35 PM COVER OPERATOR Pt placed in recliner at this time. Sats drop intot the 70's on RA, pt was placed on 3L per NC, given incentive spirometer and placed in recliner. Sats on 3L per NC is 97%. R OPERATOR * Op Note - Herberth Rodgers MD [...] PM This note was transcribed using the [employer] Mobile voice recognition system without human delivery clerk. In an effort to expedite patient care, this report has not been adjusted for typographical, grammatical, and syntax by a trained medical associate. R OPERATOR * Pre-Procedure Instructions - Eduarda Terry RN - 02/22/2021 12:40 PM COVER OPERATOR We are pleased that you and your doctor have chosen [facility] for your surgery. We hope that the [...] please call us. We can be reached [phone]. [email or web address] R OPERATOR documented in this encounter Plan of Treatment Not on file documented as of this encounter Procedures Procedure Name Priority Date/Time Associated Diagnosis Comments HOME O2 EVAL (DESATURATION SCREEN) Routine 02/27/2021 1:52 PM COVER OPERATOR EGFR Routine 02/27/2021 4:40 AM COVER OPERATOR DIFFERENTIAL AUTO Routine 02/27/2021 4:4 0 AM COVER OPERATOR CBC WITH AUTO DIFFERENTIAL Routine 02/27/2021 4:40 AM COVER OPERATOR PHOSPHORUS Routine 02/27/2021 4:40 AM COVER OPERATOR MAGNESIUM Routine 02/27/2021 4:40 AM COVER OPERATOR COMPREHENSIVE METABOLIC PANEL Routine 02/27/2021 4:40 AM COVER OPERATOR EGFR Routine 02/26/2021 5:19 AM COVER OPERATOR DIFFERENTIAL AUTO Routine 02/26/2021 5:1 9 AM COVER OPERATOR CBC WITH AUTO DIFFERENTIAL Routine 02/26/2021 5:19 AM COVER OPERATOR PHOSPHORUS Routine 02/26/2021 5:19 AM COVER OPERATOR MAGNESIUM Routine 02/26/2021 5:19 AM COVER OPERATOR COMPREHENSIVE METABOLIC PANEL Routine 02/26/2021 5:19 AM COVER OPERATOR US VEIN DUPLEX LOWER EXTREMITY BILATERAL COMPLETE IP Routine 02/25/2021 2:27 PM COVER OPERATOR XR CHEST 1 VIEW Routine 02/25/2021 1:42 PM COVER OPERATOR NM PULMONARY PERFUSION IMAGING IP Routine 02/25/2021 1:41 PM COVER OPERATOR ECG 12-LEAD Routine 02/25/2021 7:49 AM COVER OPERATOR EGFR Routine 02/25/2021 5:31 AM COVER OPERATOR DIFFERENTIAL AUTO Routine 02/25/2021 5:3 1 AM COVER OPERATOR PRO B-TYPE NATRIURETIC PEPTIDE Routine 02/25/2021 5:31 AM COVER OPERATOR CBC WITH AUTO DIFFERENTIAL Routine 02/25/2021 5:31 AM COVER OPERATOR PHOSPHORUS Routine 02/25/2021 5:31 AM COVER OPERATOR MAGNESIUM Routine 02/25/2021 5:31 AM COVER OPERATOR COMPREHENSIVE METABOLIC PANEL Routine 02/25/2021 5:[address] CHEST WO CONTRAST IP Routine 02/24/2021 11:10 PM COVER OPERATOR BLOOD GAS, ARTERIAL Timed 02/24/2021 1 0:34 PM COVER OPERATOR CREATION ARTERIOVENOUS FISTULA - ARM 02/24/2021 3:04 PM COVER OPERATOR End stage renal disease (CMS/HCC) (HCC) EGFR STAT 02/24/2021 12:32 PM COVER OPERATOR DIFFERENTIAL AUTO STAT 02/24/2021 12: 32 PM COVER OPERATOR CBC WITH AUTO DIFFERENTIAL STAT 02/24/2021 12:32 PM COVER OPERATOR APTT STAT 02/24/2021 12:32 PM COVER OPERATOR PROTIME-INR STAT 02/24/2021 12:32 PM COVER OPERATOR BASIC METABOLIC PANEL STAT 02/24/2021 12:32 PM COVER OPERATOR documented in this encounter Results * eGFR (02/27/2021 4:40 AM COVER OPERATOR) eGFR 19 mL/min/1.7 3 m2 SIMON ELIZABETH [...] last reviewed 2020 Blood 02/27/2021 4:40 AM COVER OPERATOR 02/27/2021 5:36 AM COVER OPERATOR us Kiera Quintana MD LAB BLOOD ORDERABLE S Final Result [facility] [address] [facility] Department [place] [address] * (ABNORMAL) Differential, auto (02/27/2021 4:40 AM COVER OPERATOR) Pathologist [facility] Neutrophil abs 2.8 1.7 - 6.5 K/cumm [facility] Imm gran abs 0.0 0.0 - 0.1 K/cumm [facility] Lymphocyte abs 2.0 0.8 - 3.3 K/cumm [facility] Monocyte abs 0.9(H) 0.2 - 0.8 K/cumm [facility] Eosinophil abs 0.2 0.0 - 0.5 K/cumm [facility] Basophil abs 0.0 0.0 - 0.1 K/cumm [facility] Neutrophil pct 47.5 % [facility] Comment: Interpretive Data Percent cell count reference ranges are not reported, since discordance with absolute values may lead to misinterpretation of CBC data. Current Interpretive Data was last revised on 2017. Imm gran pct 0.2 % [facility] Comment: Interpretive Data Percent cell count reference ranges are not reported, since discordance with absolute values may lead to misinterpretation of CBC data. Current Interpretive Data was last revised on 2017. Lymphocyte pct 33.2 % [facility] Comment: Interpretive Data Percent cell count reference ranges are not reported, since discordance with absolute values may lead to misinterpretation of CBC data. Current Interpretive Data was last revised on 2017. Monocyte pct 14.5 % [facility] Comment: Interpretive Data Percent cell count reference ranges are not reported, since discordance with absolute values may lead to misinterpretation of CBC data. Current Interpretive Data was last revised on 2017. Eosinophil pct 3.9 % [facility] Comment: Interpretive Data Percent cell count reference ranges are not reported, since discordance with absolute values may lead to misinterpretation of CBC data. Current Interpretive Data was last revised on 2017. Basophil pct 0.7 % [facility] Comment: Interpretive Data Percent cell count reference ranges are not reported, since discordance with absolute values may lead to misinterpretation of CBC data. Current Interpretive Data was last revised on 2017. Blood 02/27/2021 4:40 AM COVER OPERATOR 02/27/2021 5:36 AM COVER OPERATOR us Kiera Quintana MD LAB BLOOD ORDERABLE S Final Result [facility] [address] [facility] [place] [address] * (ABNORMAL) CBC with auto differential (02/27/2021 4:40 AM COVER OPERATOR) WBC 5.9 3.8 - 9.9 K/cumm [facility] Hgb 13.3 11.9 - 15.5 g/dL [facility] Hct 42.4 35.6 - 45.5 % [facility] Plt 156 150 - 400 K/cumm [facility] MPV 11.5 9.1 - 12.3 fL [facility] RBC 4.30 3.90 - 5.20 M/cumm [facility] MCV 98.6(H) 81.3 - 96.4 fL [facility] MCH 30.9 27.1 - 33.3 pg [facility] MCHC 31.4(L) 32.3 - 35.7 g/dL [facility] RDW CV 14.3 11.1 - 14.9 % [facility] RDW SD 51.8(H) 35.7 - 48.1 fL [facility] NRBC abs 0.00 0.00 - 0.01 K/cumm [facility] Blood 02/27/2021 4:40 AM COVER OPERATOR 02/27/2021 5:36 AM COVER OPERATOR Kiera Quintana MD LAB BLOOD ORDERABLE S Final Result Performing Organization Address City/[facility]/ZIP Co de Phone Number [address] [employer] [place] [address] * Phosphorus (02/27/2021 4:40 AM COVER OPERATOR) Phosphorus, pl 4.5 2.3 - 4.5 mg/dL [facility] Blood 02/27/2021 4:40 AM COVER OPERATOR 02/27/2021 5:36 AM COVER OPERATOR Kiera Quintana MD LAB BLOOD ORDERABLE S Final Result Performing Organization Address [facility] Co de Phone Number [address] [employer] [place] [address] * Magnesium (02/27/2021 4:40 AM COVER OPERATOR) Magnesium 2.1 1.4 - 2.5 mg/dL [facility] Blood 02/27/2021 4:40 AM COVER OPERATOR 02/27/2021 5:36 AM COVER OPERATOR us Kiera Quintana MD LAB BLOOD ORDERABLE S Final Result Performing Organization Address City/[facility] Co de Phone Number [address] [employer] [place] [address] * (ABNORMAL) Comprehensive metabolic panel (02/27/2021 4:40 AM COVER OPERATOR) Pathologist [facility] Sodium 138 135 - 145 mmol/L [facility] Potassium, pl 4.0 3.3 - 4.9 mmol/L [facility] Chloride 98 97 - 110 mmol/L [facility] CO2 30 22 - 32 mmol/L [facility] Anion gap 10 2 - 15 mmol/L [facility] BUN 40(H) 8 - 25 mg/dL [facility] Creatinine 2.50(H) 0.60 - 1.10 mg/dL [facility] Glucose 112 70 - 199 mg/dL [facility] Comment: Interpretive Data Fasting glucose >/= [...] 2017. Calcium 9.0 8.5 - 10.3 mg/dL [facility] Bilirubin, total 0.3 0.1 - 1.2 mg/dL [facility] Protein, pl 6.6 6.5 - 8.5 g/dL [facility] Albumin 3.7 3.5 - 5.0 g/dL [facility] Alk phos 86 40 - 130 Units/L [facility] ALT 6(L) 7 - 45 Units/L [facility] AST 25 10 - 45 Units/L [facility] Blood 02/27/2021 4:40 AM COVER OPERATOR 02/27/2021 5:36 AM COVER OPERATOR us Kiera Quintana MD LAB BLOOD ORDERABLE S Final Result [facility] [address] [facility] [place] [address] * eGFR (02/26/2021 5:19 AM COVER OPERATOR) [facility] eGFR 16 mL/min/1.7 3 m2 [facility] Comment: Interpretive Data Reference Interval Normal [...] last reviewed 2020 Blood 02/26/2021 5:19 AM COVER OPERATOR 02/26/2021 5:39 AM COVER OPERATOR us Kiera Quintana MD LAB BLOOD ORDERABLE S Final Result Performing Organization Address City/State/[facility] Co de Phone Number SIMON [address] [facility] Department of Laboratories [place], [place] [id number] * Differential, auto (02/26/2021 5:19 AM COVER OPERATOR) Pathologist [facility] Neutrophil abs 3.1 1.7 - 6.5 K/cumm [facility] Imm gran abs 0.0 0.0 - 0.1 K/cumm [facility] Lymphocyte abs 2.1 0.8 - 3.3 K/cumm [facility] Monocyte abs 0.8 0.2 - 0.8 K/cumm [facility] Eosinophil abs 0.1 0.0 - 0.5 K/cumm [facility] Basophil abs 0.0 0.0 - 0.1 K/cumm [facility] Neutrophil pct 50.3 % [facility] Comment: Interpretive Data Percent cell count reference ranges are not reported, since discordance with absolute values may lead to misinterpretation of CBC data. Current Interpretive Data was last revised on 2017. Imm gran pct 0.2 % [facility] Comment: Interpretive Data Percent cell count reference ranges are not reported, since discordance with absolute values may lead to misinterpretation of CBC data. Current Interpretive Data was last revised on 2017. Lymphocyte pct 34.7 % [facility] Comment: Interpretive Data Percent cell count reference ranges are not reported, since discordance with absolute values may lead to misinterpretation of CBC data. Current Interpretive Data was last revised on 2017. Monocyte pct 13.2 % [facility] Comment: Interpretive Data Percent cell count reference ranges are not reported, since discordance with absolute values may lead to misinterpretation of CBC data. Current Interpretive Data was last revised on 2017. Eosinophil pct 1.3 % [facility] Comment: Interpretive Data Percent cell count reference ranges are not reported, since discordance with absolute values may lead to misinterpretation of CBC data. Current Interpretive Data was last revised on 2017. Basophil pct 0.3 % [facility] Comment: Interpretive Data Percent cell count reference ranges are not reported, since discordance with absolute values may lead to misinterpretation of CBC data. Current Interpretive Data was last revised on 2017. Blood 02/26/2021 5:19 AM COVER OPERATOR 02/26/2021 5:39 AM COVER OPERATOR us Kiera Quintana MD LAB BLOOD ORDERABLE S Final Result [facility] [address] [facility] [place] [address] * (ABNORMAL) CBC with auto differential (02/26/2021 5:19 AM COVER OPERATOR) WBC 6.1 3.8 - 9.9 K/cumm [facility] Hgb 13.0 11.9 - 15.5 g/dL [facility] Hct 42.1 35.6 - 45.5 % [facility] Plt 144(L) 150 - 400 K/cumm [facility] MPV 11.0 9.1 - 12.3 fL [facility] RBC 4.28 3.90 - 5.20 M/cumm [facility] MCV 98.4(H) 81.3 - 96.4 fL [facility] MCH 30.4 27.1 - 33.3 pg [facility] MCHC 30.9(L) 32.3 - 35.7 g/dL [facility] RDW CV 14.4 11.1 - 14.9 % [facility] RDW SD 52.1(H) 35.7 - 48.1 fL [facility] NRBC abs 0.00 0.00 - 0.01 K/cumm [facility] Blood 02/26/2021 5:19 AM COVER OPERATOR 02/26/2021 5:39 AM COVER OPERATOR Kiera Quintana MD LAB BLOOD ORDERABLE S Final Result Performing Organization Address City/[facility]/ZIP Co de Phone Number [address] [employer] [place] [address] * Phosphorus (02/26/2021 5:19 AM COVER OPERATOR) Phosphorus, pl 4.2 2.3 - 4.5 mg/dL [facility] Blood 02/26/2021 5:19 AM COVER OPERATOR 02/26/2021 5:39 AM COVER OPERATOR Kiera Quintana MD LAB BLOOD ORDERABLE S Final Result [address] [employer] [place] [address] * Magnesium (02/26/2021 5:19 AM COVER OPERATOR) Magnesium 2.3 1.4 - 2.5 mg/dL [facility] Blood 02/26/2021 5:19 AM COVER OPERATOR 02/26/2021 5:39 AM COVER OPERATOR Kiera Quintana MD LAB BLOOD ORDERABLE S Final Result [facility] [address] [facility] [place] [address] * (ABNORMAL) Comprehensive metabolic panel (02/26/2021 5:19 AM COVER OPERATOR) Sodium 142 135 - 145 mmol/L [facility] Potassium, pl 4.3 3.3 - 4.9 mmol/L [facility] Chloride 101 97 - 110 mmol/L [facility] CO2 31 22 - 32 mmol/L [facility] Anion gap 10 2 - 15 mmol/L [facility] BUN 37(H) 8 - 25 mg/dL [facility] Creatinine 2.90(H) 0.60 - 1.10 mg/dL [facility] Glucose 103 70 - 199 mg/dL [facility] Comment: Interpretive Data Fasting glucose >/= [...] 2017. Calcium 9.3 8.5 - 10.3 mg/dL [facility] Bilirubin, total 0.3 0.1 - 1.2 mg/dL [facility] Protein, pl 6.2(L) 6.5 - 8.5 g/dL [facility] Albumin 3.6 3.5 - 5.0 g/dL [facility] Alk phos 83 40 - 130 Units/L [facility] ALT 10 7 - 45 Units/L [facility] AST 27 10 - 45 Units/L [facility] Blood 02/26/2021 5:19 AM COVER OPERATOR 02/26/2021 5:39 AM COVER OPERATOR Kiera Quintana MD LAB BLOOD ORDERABLE S Final Result [facility] Department [place] [address] * US Vein Duplex Lower Extremity Bilateral Complete (02/25/2021 2:27 PM COVER OPERATOR) Anatomical Region Laterality Modality Vascular Bilateral Ultrasound 02/25/2021 Narrative 02/28/2021 2:45 PM COVER OPERATOR [employer] Job ID: [id number] [employer] Document ID: [id number] Dictated date/time: [id number] REASON FOR STUDY Respiratory failure. No thrombus seen in the common femoral, superficial femoral, popliteal, posterior peroneal or greater saphenous veins bilaterally. IMPRESSION No evidence of deep venous thrombosis in either lower extremity. JOB ID/VF JOB ID: ??[id number] us Cece Veras MD IMG US PROCEDURES Final Result * XR Chest 1 View (02/25/2021 1:42 PM COVER OPERATOR) Anatomical Region Laterality Modality Body, Chest N/A Computed Radiogr aphy 02/25/2021 1:49 PM COVER OPERATOR Narrative 02/25/2021 1:50 PM COVER OPERATOR EXAM DESCRIPTION: ?? XR CHEST 1 VIEW [...] D: ??02/25/2021 1:50 PM T: Report ID: [id number] Reading Location: ??[id number] Procedure Note Brady Holland Jr., MD - [...] by Brady Holland M.D. T: Report ID: [id number] Reading Location: [place] [address] Cece Veras MD IMG XR PROCEDURES Final Result * NM Pulmonary Perfusion Imaging (02/25/2021 1:41 PM COVER OPERATOR) Anatomical Region Laterality Modality Body N/A Nuclear Medicine 02/25/2021 1:48 PM COVER OPERATOR Narrative 02/25/2021 2:00 PM COVER OPERATOR EXAM DESCRIPTION: ?? NM PULMONARY PERFUSION IMAGING [...] D: ??02/25/2021 2:00 PM T: Report ID: [id number] Reading Location: ??[id number] Procedure Note Brady Holland Jr., MD - [...] by Brady Holland M.D. T: Report ID: [id number] Reading Location: [id number] Cece Veras MD [facility] PROCEDURES Final Result * ECG 12 lead (02/25/2021 7:49 AM COVER OPERATOR) Pathologist [facility] Ventricular Rate EKG/Min 68 BPM [facility] Atrial Rate 68 BPM [facility] LA-Interval (MSEC) 198 ms [facility] QRS-Interval (MSEC) 104 ms [facility] QT-Interval (MSEC) 386 ms [facility] QTc 410 ms [facility] P [place] 76 degrees [facility] R [place] -47 degrees [facility] T [place] 42 degrees [facility] Diagnosis Normal sinus rhythm Left anterior fascicular block Abnormal ECG When compared with ECG of 30-DEC-2020 11:29, No significant change was found [facility] 02/25/2021 7:49 AM COVER OPERATOR 02/25/2021 2:22 PM COVER OPERATOR us Kiera Quintana MD ECG ORDERABLES Fin al Result [facility] * eGFR (02/25/2021 5:31 AM COVER OPERATOR) Pathologist [facility] eGFR 20 mL/min/1.7 3 m2 [facility] [...] last reviewed 2020 Blood 02/25/2021 5:31 AM COVER OPERATOR 02/25/2021 6:25 AM COVER OPERATOR Kiera Quintana MD LAB BLOOD ORDERABLE S Final Result [facility] [address] [facility] Department [place] [address] * (ABNORMAL) Differential, auto (02/25/2021 5:31 AM COVER OPERATOR) Neutrophil abs 6.6(H) 1.7 - 6.5 K/cumm [facility] Imm gran abs 0.0 0.0 - 0.1 K/cumm [facility] Lymphocyte abs 1.3 0.8 - 3.3 K/cumm [facility] Monocyte abs 0.4 0.2 - 0.8 K/cumm [facility] Eosinophil abs 0.0 0.0 - 0.5 K/cumm [facility] Basophil abs 0.0 0.0 - 0.1 K/cumm [facility] Neutrophil pct 79.6 % [facility] Comment: Interpretive Data Percent cell count reference ranges are not reported, since discordance with absolute values may lead to misinterpretation of CBC data. Current Interpretive Data was last revised on 2017. Imm gran pct 0.2 % [facility] Comment: Interpretive Data Percent cell count reference ranges are not reported, since discordance with absolute values may lead to misinterpretation of CBC data. Current Interpretive Data was last revised on 2017. Lymphocyte pct 15.5 % [facility] Comment: Interpretive Data Percent cell count reference ranges are not reported, since discordance with absolute values may lead to misinterpretation of CBC data. Current Interpretive Data was last revised on 2017. Monocyte pct 4.6 % [facility] Comment: Interpretive Data Percent cell count reference ranges are not reported, since discordance with absolute values may lead to misinterpretation of CBC data. Current Interpretive Data was last revised on 2017. Eosinophil pct 0.0 % [facility] Comment: Interpretive Data Percent cell count reference ranges are not reported, since discordance with absolute values may lead to misinterpretation of CBC data. Current Interpretive Data was last revised on 2017. Basophil pct 0.1 % [facility] Comment: Interpretive Data Percent cell count reference ranges are not reported, since discordance with absolute values may lead to misinterpretation of CBC data. Current Interpretive Data was last revised on 2017. Blood 02/25/2021 5:31 AM COVER OPERATOR 02/25/2021 6:25 AM COVER OPERATOR us Kiera Quintana MD LAB BLOOD ORDERABLE S Final Result [place] [address] [facility] Department [place] [address] * (ABNORMAL) CBC with auto differential (02/25/2021 5:31 AM COVER OPERATOR) WBC 8.3 3.8 - 9.9 K/cumm [facility] Hgb 14.8 11.9 - 15.5 g/dL [facility] Hct 46.7(H) 35.6 - 45.5 % [facility] Plt 205 150 - 400 K/cumm [facility] MPV 11.6 9.1 - 12.3 fL [facility] RBC 4.77 3.90 - 5.20 M/cumm [facility] MCV 97.9(H) 81.3 - 96.4 fL [facility] MCH 31.0 27.1 - 33.3 pg [facility] MCHC 31.7(L) 32.3 - 35.7 g/dL [facility] RDW CV 13.9 11.1 - 14.9 % [facility] RDW SD 49.9(H) 35.7 - 48.1 fL [facility] NRBC abs 0.00 0.00 - 0.01 K/cumm [facility] Blood 02/25/2021 5:31 AM COVER OPERATOR 02/25/2021 6:25 AM COVER OPERATOR us Kiera Quintana MD LAB BLOOD ORDERABLE S Final Result Performing Organization Address City/[facility]/ZIP Co de Phone Number [address] [address] * Phosphorus (02/25/2021 5:31 AM COVER OPERATOR) [facility] Phosphorus, pl 3.6 2.3 - 4.5 mg/dL [facility] Blood 02/25/2021 5:31 AM COVER OPERATOR 02/25/2021 6:25 AM COVER OPERATOR Kiera Quintana MD LAB BLOOD ORDERABLE S Final Result Performing Organization Address City/[facility] Co de Phone Number [address] [employer] [place] [address] * Magnesium (02/25/2021 5:31 AM COVER OPERATOR) [facility] Magnesium 2.2 1.4 - 2.5 mg/dL [facility] Blood 02/25/2021 5:31 AM COVER OPERATOR 02/25/2021 6:25 AM COVER OPERATOR Kiera Quintana MD LAB BLOOD ORDERABLE S Final Result Performing Organization Address City/[facility] Co de Phone Number [address] [address] * (ABNORMAL) Comprehensive metabolic panel (02/25/2021 5:31 AM COVER OPERATOR) [facility] Sodium 140 135 - 145 mmol/L [facility] Potassium, pl 5.1(H) 3.3 - 4.9 mmol/L [facility] Chloride 98 97 - 110 mmol/L [facility] CO2 30 22 - 32 mmol/L [facility] Anion gap 12 2 - 15 mmol/L [facility] BUN 28(H) 8 - 25 mg/dL [facility] Creatinine 2.40(H) 0.60 - 1.10 mg/dL [facility] Glucose 138 70 - 199 mg/dL [facility] Comment: Interpretive Data Fasting glucose >/= [...] 2017. Calcium 9.8 8.5 - 10.3 mg/dL [facility] Bilirubin, total 0.3 0.1 - 1.2 mg/dL [facility] Protein, pl 7.2 6.5 - 8.5 g/dL [facility] Albumin 4.1 3.5 - 5.0 g/dL [facility] Alk phos 92 40 - 130 Units/L [facility] ALT 13 7 - 45 Units/L [facility] AST 23 10 - 45 Units/L [facility] Blood 02/25/2021 5:31 AM COVER OPERATOR 02/25/2021 6:25 AM COVER OPERATOR us Kiera Quintana MD LAB BLOOD ORDERABLE S Final Result [facility] [address] [facility] [place] [address] * (ABNORMAL) Pro B-type natriuretic peptide (02/25/2021 5:31 AM COVER OPERATOR) NT-proBNP 782(H) <=300 pg/mL [facility] Comment: Interpretive [...] Revised Date: 2017. Blood 02/25/2021 5:31 AM COVER OPERATOR 02/25/2021 6:25 AM COVER OPERATOR us Kiera Quintana MD LAB BLOOD ORDERABLE S Final Result [facility] [address] [facility] [place] [address] * CT Chest WO Contrast (02/24/2021 11:10 PM COVER OPERATOR) Anatomical Region Laterality Modality Body N/A Computed Tomogra phy 02/25/2021 9:38 AM COVER OPERATOR Narrative 02/25/2021 10:00 AM COVER OPERATOR EXAM DESCRIPTION: ?? CT CHEST WO CONTRAST [...] D: ??02/25/2021 10:00 AM T: Report ID: [id number] Reading Location: ??[id number] Procedure Note Naveen Kirkpatrick MD - 02/25/2021 [...] Naveen Kirkpatrick M.D. RB T: Report ID: [id number] Reading Location: [place] [address] Kiera Quintana MD IMG CT PROCEDURES F inal Result * (ABNORMAL) Blood gas, arterial (02/24/2021 10:34 PM COVER OPERATOR) pH, Art 7.32(L) 7.35 - 7.45 [facility] PCO2, Arterial 65(H) 35 - 45 mmHg [facility] PO2, Arterial 76(L) 83 - 108 mmHg [facility] HCO3 Art (Calculated) 34(H) 20 - 30 mmol/L [facility] BE, art 5 mmol/L [facility] Comment: Interpretive Data No Reference Range Established Current Interpretive Data was last revised on 2017. Blood 02/24/2021 10:3 4 PM COVER OPERATOR 02/24/2021 10:37 PM COVER OPERATOR Kiera Quintana MD LAB BLOOD ORDERABLE S Final Result Performing Organization Address City/[facility]/ZIP Co de Phone Number SIMON [address] [facility] [employer] [place] [address] * eGFR (02/24/2021 12:32 PM COVER OPERATOR) Pathologist [facility] eGFR 20 mL/min/1.7 3 m2 [facility] Comment: Interpretive Data Reference Interval Normal [...] reviewed 2020 Blood 02/24/2021 12:3 2 PM COVER OPERATOR 02/24/2021 12:36 PM COVER OPERATOR us Herberth Rodgers MD LAB BLOOD ORDERABLES Final Result Performing Organization Address City/[facility]/ZIP Co de Phone Number SIMON [address] [facility] Department of [employer] [place] [address] * (ABNORMAL) Differential, auto (02/24/2021 12:32 PM COVER OPERATOR) [facility] Neutrophil abs 3.4 1.7 - 6.5 K/cumm [facility] Imm gran abs 0.0 0.0 - 0.1 K/cumm [facility] Lymphocyte abs 2.3 0.8 - 3.3 K/cumm [facility] Monocyte abs 1.0(H) 0.2 - 0.8 K/cumm [facility] Eosinophil abs 0.2 0.0 - 0.5 K/cumm [facility] Basophil abs 0.0 0.0 - 0.1 K/cumm [facility] Neutrophil pct 49.9 % [facility] Comment: Interpretive Data Percent cell count reference ranges are not reported, since discordance with absolute values may lead to misinterpretation of CBC data. Current Interpretive Data was last revised on 2017. Imm gran pct 0.1 % [facility] Comment: Interpretive Data Percent cell count reference ranges are not reported, since discordance with absolute values may lead to misinterpretation of CBC data. Current Interpretive Data was last revised on 2017. Lymphocyte pct 32.9 % [facility] Comment: Interpretive Data Percent cell count reference ranges are not reported, since discordance with absolute values may lead to misinterpretation of CBC data. Current Interpretive Data was last revised on 2017. Monocyte pct 14.4 % [facility] Comment: Interpretive Data Percent cell count reference ranges are not reported, since discordance with absolute values may lead to misinterpretation of CBC data. Current Interpretive Data was last revised on 2017. Eosinophil pct 2.3 % [facility] Comment: Interpretive Data Percent cell count reference ranges are not reported, since discordance with absolute values may lead to misinterpretation of CBC data. Current Interpretive Data was last revised on 2017. Basophil pct 0.4 % [facility] Comment: Interpretive Data Percent cell count reference ranges are not reported, since discordance with absolute values may lead to misinterpretation of CBC data. Current Interpretive Data was last revised on 2017. Blood 02/24/2021 12:3 2 PM COVER OPERATOR 02/24/2021 12:36 PM COVER OPERATOR us Herberth Rodgers MD LAB BLOOD ORDERABLES Final Result [facility] [address] [place] [address] [place] [address] * Protime-INR (02/24/2021 12:32 PM COVER OPERATOR) [facility] PT 13.0 12.0 - 14.6 sec [facility] INR 1.0 [facility] Comment: Ref Range High Interpretive data Oral anticoagulant therapeutic ranges: Venous thromboembolism prophylaxis or treatment: 2.0-3.0 CARDIOLOGY Standard range: 2.0-3.0 High-intensity range: 2.5-3.5 Refer to indication-specific guidelines for appropriate target ranges for prosthetic heart valve replacement. Current interpretive data was last revised on 2019. Blood 02/24/2021 12:3 2 PM COVER OPERATOR 02/24/2021 12:36 PM COVER OPERATOR us Herberth Rodgers MD LAB BLOOD ORDERABLES Final Result [address] [address] * (ABNORMAL) CBC with auto differential (02/24/2021 12:32 PM COVER OPERATOR) [facility] WBC 6.9 3.8 - 9.9 K/cumm [facility] Hgb 14.3 11.9 - 15.5 g/dL [facility] Hct 44.7 35.6 - 45.5 % [facility] Plt 159 150 - 400 K/cumm [facility] MPV 10.7 9.1 - 12.3 fL [facility] RBC 4.61 3.90 - 5.20 M/cumm [facility] MCV 97.0(H) 81.3 - 96.4 fL [facility] MCH 31.0 27.1 - 33.3 pg [facility] MCHC 32.0(L) 32.3 - 35.7 g/dL [facility] RDW CV 14.1 11.1 - 14.9 % [facility] RDW SD 49.7(H) 35.7 - 48.1 fL [facility] NRBC abs 0.00 0.00 - 0.01 K/cumm [facility] Blood 02/24/2021 12:3 2 PM COVER OPERATOR 02/24/2021 12:36 PM COVER OPERATOR Herberth Rodgers MD LAB BLOOD ORDERABLES Final Result Performing Organization Address City/[facility] Co de Phone Number SIMON [address] [address] * (ABNORMAL) Basic metabolic panel (02/24/2021 12:32 PM COVER OPERATOR) [facility] Sodium 138 135 - 145 mmol/L [facility] Potassium, pl 4.3 3.3 - 4.9 mmol/L [facility] Chloride 98 97 - 110 mmol/L [facility] CO2 33(H) 22 - 32 mmol/L [facility] Anion gap 7 2 - 15 mmol/L [facility] BUN 32(H) 8 - 25 mg/dL [facility] Creatinine 2.40(H) 0.60 - 1.10 mg/dL [facility] Glucose 84 70 - 199 mg/dL [facility] Comment: Interpretive Data Fasting glucose >/= [...] 2017. Calcium 9.6 8.5 - 10.3 mg/dL [facility] Blood 02/24/2021 12:3 2 PM COVER OPERATOR 02/24/2021 12:36 PM COVER OPERATOR Herberth Rodgers MD LAB BLOOD ORDERABLES Final Result Performing Organization Address [facility] Co de Phone Number [facility] [address] [place] [address] * aPTT (02/24/2021 12:32 PM COVER OPERATOR) [facility] aPTT 35 22 - 37 sec SIMON ELIZABETH Comment: Interpretive data aPTT test has not been evaluated for monitoring heparin therapy. The anti-Xa is the preferred test. Current interpretive data was last revised on 2019. Blood 02/24/2021 12:3 2 PM COVER OPERATOR 02/24/2021 12:36 PM COVER OPERATOR us Herberth Rodgers MD LAB BLOOD ORDERABLES Final Result [facility] [address] [facility] Department [place] [address] documented in this encounter Visit Diagnoses Diagnosis [...] 2 puff, inhalation, Every 4 hours PRN (broadcast correspondent), wheezing, Starting on Sun02/25/21 at 1300 budesonide-formoteroL (SYMBICORT) 160-4.5 mcg/actuation inhaler 2 puff 2 puff, inhalation, 2 times daily (broadcast correspondent), First dose on Sun02/25/21 at 2000, Rinse mouth with water after use. Do not swallow., I /authorizing provider attest that the patient meets the approved [facility] Use Criteria: Yes Given 02/27/2021 7:28 AM COVER OPERATOR 2 puffs Given 02/26/2021 9:14 PM COVER OPERATOR 2 puffs Given 02/26/2021 5:54 AM COVER OPERATOR 2 puffs calcitRIOL (ROCALTROL) capsule 0.25 mcg 0.25 mcg, oral, 3 times weekly (Once per day on Sun), First dose on Sun02/25/21 at 0900 Given 02/25/2021 9:18 AM COVER OPERATOR 0.25 mcg cholecalciferol (VITAMIN D-3) tablet 2,000 Units 2,000 Units, oral, Daily, First dose on Sun02/25/21 at 0900 Given 02/27/2021 8:29 AM COVER OPERATOR 2,000 Units Given 02/26/2021 10:03 AM COVER OPERATOR 2,000 Units Given 02/25/2021 9:18 AM COVER OPERATOR 2,[address] (CYMBALTA) extended release capsule 60 mg 60 mg, oral, Nightly, First dose on Bernarda 02/24/21 at 2200, Capsule may be opened and contents mixed with applesauce or apple juice ONLY. Do not crush, chew, cut, dissolve, open or otherwise manipulate tablet/capsule. Given 02/26/2021 9:04 PM COVER OPERATOR 60 mg Given 02/25/2021 8:15 PM COVER OPERATOR 60 mg Given 02/24/2021 11:45 PM COVER OPERATOR 60 mg enoxaparin (LOVENOX) syringe 30 mg 30 mg, subcutaneous, Daily (for enoxaparin), First dose on 02/26/21 at 2100, Indications: Deep Vein Thrombosis PreventionIndications:Deep Vein Thrombosis Prevention Given 02/26/2021 9:04 PM COVER OPERATOR 30 mg Right Upper Arm furosemide (LASIX) tablet 40 mg 40 mg, oral, Nightly, First dose on Bernarda 02/24/21 at 2200 Given 02/26/2021 9:03 PM COVER OPERATOR 40 mg Given 02/25/2021 8:15 PM COVER OPERATOR 40 mg Given 02/25/2021 12:11 AM COVER OPERATOR 40 mg heparin 5,000 Units in sodium chloride 0.9% 1,000 mL solution As needed, Starting on Bernarda 02/24/21 at 1556, Intra-Op Given 02/24/2021 3:56 PM COVER OPERATOR 20 mL HYDROcodone-acetaminophen (NORCO) 5-325 mg per tablet 1 tablet 1 tablet, oral, Every 4 hours PRN, 1st line for pain, Starting on Bernarda 02/24/21 at 1952, Indications: PainIndications:Pain Given 02/27/2021 7:49 PM COVER OPERATOR 1 tablet Given 02/27/2021 3:32 PM COVER OPERATOR 1 tablet Given 02/27/2021 10:14 AM COVER OPERATOR 1 tablet ipratropium-albuteroL (DUO-NEB) 0.5-2.5 mg/3 mL nebulizer solution 3 mL 3 mL, nebulization, 2 times daily (broadcast correspondent), First dose (after last modification) on [facility] 02/26/21 at 2000, Indications: Chronic Obstructive Pulmonary Disease with BronchospasmsIndications:Chronic Obstructive Pulmonary Disease with Bronchospasms Given 02/27/2021 7:28 AM COVER OPERATOR 3 mL Given 02/26/2021 9:13 PM COVER OPERATOR 3 mL levothyroxine (SYNTHROID) tablet 200 mcg 200 mcg, oral, Daily (early AM), First dose on Sun02/25/21 at 0600, Administer on an empty stomach, preferably 30 minutes before breakfast. Take 4 hours apart from antacids, iron and calcium products. Given 02/27/2021 5:58 AM COVER OPERATOR 200 mcg Given 02/26/2021 5:26 AM COVER OPERATOR 200 mcg Given 02/25/2021 5:09 AM COVER OPERATOR 200 mcg lidocaine (XYLOCAINE) 10 mg/mL (1 %) injection 2-10 mg 2-10 mg (0.2-1 mL), other, Once as needed, pain with IV placement, Starting on Bernarda 02/24/21 at 1215, For 1 dose, Administer volume needed to infiltrate IV site. multivit qjuxggzb-mtnr-XE-calcium (THERA-M) tablet 1 tablet 1 tablet, oral, Daily, First dose on Sun02/25/21 at 0900 Given 02/27/2021 8:30 AM COVER OPERATOR 1 tablet Given 02/26/2021 10:03 AM COVER OPERATOR 1 tablet Given 02/25/2021 9:17 AM COVER OPERATOR 1 tablet pregabalin (LYRICA) capsule 200 mg 200 mg, oral, 2 times daily, First dose on Bernarda 02/24/21 at 2200 Given 02/27/2021 8:30 AM COVER OPERATOR 200 mg Given 02/26/2021 9:03 PM COVER OPERATOR 200 mg Given 02/26/2021 10:03 AM COVER OPERATOR 200 mg primidone (MYSOLINE) tablet 50 mg 50 mg, oral, Nightly, First dose on Bernarda 02/24/21 at 2200 Given 02/26/2021 9:03 PM COVER OPERATOR 50 mg Given 02/25/2021 8:15 PM COVER OPERATOR 50 mg Given 02/24/2021 11:45 PM COVER OPERATOR 50 mg prochlorperazine (COMPAZINE) injection 5 mg [...] than 55. Given 02/26/2021 9:0 4 PM COVER OPERATOR 60 mg Given 02/25/2021 8:15 PM COVER OPERATOR 60 mg Given 02/25/2021 9:17 AM COVER OPERATOR 60 mg ramelteon (ROZEREM) tablet 8 mg 8 mg, oral, Nightly PRN, sleep, Starting on Sun02/24/21 at 3, Indications: Sleep-Onset InsomniaIndications:Sleep-Onset Insomnia Given 02/26/2021 9:04 PM COVER OPERATOR 8 m g rosuvastatin (CRESTOR) tablet 10 mg 10 mg, oral, Nightly, First dose on Bernarda 02/24/21 at 2200 Given 02/26/2021 9:03 PM COVER OPERATOR 10 mg Given 02/25/2021 8:15 PM COVER OPERATOR 10 mg Given 02/24/2021 11:45 PM COVER OPERATOR 10 mg senna-docusate (PERICOLACE) 8.6-50 mg per tablet 1 tablet 1 tablet, oral, 2 times daily PRN, constipation, Starting on Bernarda 02/24/21 at 1953, Indications: constipationIndications:constipation Given 02/25/2021 4:37 PM COVER OPERATOR 1 table t sodium chloride 0.9% flush [...] type and size. Given 02/27/2021 1:53 PM COVER OPERATOR 10 mL Given 02/26/2021 3:11 PM COVER OPERATOR 10 mL Given 02/25/2021 8:22 PM COVER OPERATOR 10 mL sodium chloride 0.9% flush 0.5-20 [...] Recently Administered Medications Times are shown in COVER OPERATOR. Scheduled Medication Order 02/25/2021 02/26/2021 02/27/2021 budesonide-formoteroL (SYMBICORT) 160-4.5 mcg/actuation inhaler 2 puff 2 puff, inhalation, 2 times daily (broadcast correspondent), First dose on Sun02/25/21 at 2000, Rinse mouth with water after use. Do not swallow., I /authorizing provider attest that the patient meets the approved [facility] Use Criteria: Yes 9169 (Given - Provider: Blair Johns, SUMI) 0554 (Given - Provider: Ashtyn Marcus RRT)06 (Not Given - Provider: Ashtyn Marcus CRUISE COORDINATOR - Reason: Other)2113 (Given - Provider: Ashtyn [...] RN) 2103 (Given - Provider: Ana Power, CACHORRO) [...] mL, nebulization, Every 6 hours while awake (broadcast correspondent), First dose (after last modification) on Sun02/25/21 at 1500, Indications: Chronic Obstructive Pulmonary Disease with Bronchospasms 1451 (Given - Provider: Carolina Gamboa, PILING CUTTER)2141 (Given - Provider: Blair Johns, SUMI) 0553 (Given - Provider: Ashtyn Marcus, SUMI)0603 (Not Given - Provider: Ashtyn Marcus, SUMI - Reason: Other) ipratropium-albuteroL (DUO-NEB) 0.5-2.5 mg/3 mL nebulizer solution 3 mL 3 mL, nebulization, 2 times daily (broadcast correspondent), First dose (after last modification) on 02/26/21 [...] (Given - Provider: Ana Power RN) multivit tyluptyt-ezho-EJ-calciu m (THERA-M) tablet 1 tablet 1 tablet, [...] 2 puff, inhalation, Every 4 hours PRN (broadcast correspondent), wheezing, Starting on Sun02/25/21 at 1300 HYDROcodone-acetaminophen [...] if unable to tolerate PO, Starting on Beranrda 02/24/21 at 1953, Indications: Nausea and Vomiting [...] free injection 12.5 mg 1 02/24/2021 multivit rxdkygjk-fhom-IE-ca lcium (THERA-M) tablet 1 tablet 1 02/24/2021 [...] 02/24/2021 documented in this encounter Care Teams Reed Dipper Relationship Specialty Start Date End Date Gaudencio Miranda MD [address] [place] [address] PCP - General 07/25/16 Herberth Rodgers MD [address] [address] Surgeon Surgery 02/24/21 documented as of this encounter
--- OUTSIDE RECORDS SUMMARY | 2024-03-07 17:32 | XMS_ITS | Encounter Summary ---
Author Organization [facility] Address [address] [place] [address] Care Team Providers Care Study Hall Supervisor Name Role Phone Gaudencio Miranda MD Primary Care Provider Reason for Referral * Consultation (Routine) - Closed Specialty Diagnoses / Procedures Referred By Contac t Referred To Contact Cardiology Diagnoses Chest discomfort Pre-operative clearance Herberth Rodgers MD [address] [facility] [address] [place] [address] Phone: tel: fax: Stacy Peña MD [address] [address] Phone: tel: fax: Referral ID Status Reason Start Date Expiration Date V isits Requested Visits Authorized [id number] Closed Specialty Services Required 12/31/2020 01/30/2022 1 1 Question Answer Please select the performing region: External Order [171] To provider: STACY PEÑA [[id number]] # of visits: 1 Comments Surgery with [...] Medical Group Vascular and Vein Surgery [address] [place] [phone] Eduarda Ocasio, RN Pre-operative clearance (Primary [...] on file 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
--- OUTSIDE RECORDS SUMMARY | 2024-03-07 17:32 | XMS_ITS | Encounter Summary ---
Author Organization [facility] Healthcare Address [address] [place] [address] Care Team Providers Care Panel Installer Name Role Phone Gaudencio Miranda MD Primary Care Provider [phone] Reason for Referral * Diagnostic Imaging (Routine) - Closed Specialty Diagnoses / Procedures Referred By Mallory valentino Referred To Contact Diagnoses End stage renal disease (CMS/HCC) (HCC) Other specified pre-operative examination Procedures US Vein Mapping Duplex Upper Extremity Bilateral Herberth Rodgers MD [address] [place] [address] [address] Phone: tel: fax: [facility] [address] [place] [phone] Referral ID Status Reason Start Date Expiration Date Visits Re quested Visits Authorized [id number] Closed 11/24/2020 12/24/2021 1 1 Reason for Visit * Diagnostic Imaging (Routine) - Closed Specialty Diagnoses / Procedures Referred By Mallory valentino Referred To Contact Diagnoses End stage renal disease (CMS/HCC) (HCC) Other specified pre-operative examination Procedures US Vein Mapping Duplex Upper Extremity Bilateral Herberth Rodgers MD [facility] [address] [address] Phone: tel: fax: [facility] [address] [place] [phone] Referral ID Status Reason Start Date Expiration Date Visits Re quested Visits Authorized [id number] Closed 11/24/2020 12/24/2021 1 1 Encounter Details Date Type Department Care Team (Latest Contact Info) Description 12/15/2020 2:25 PM CDT - 12/15/2020 11:59 PM CDT Hospital Encounter [facility] [address] [place] [phone] End stage renal disease (CMS/HCC) (HCC); Other specified pre-operative examination Discharge Disposition: Discharge to home or self care Social History Tobacco Use Types Packs/Day Years Used Date Smoking Tobacco: Former Comments Unknown Sex and Gender Information Value Date Recorded Sex Assigned at Not on file 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 JOB ID/VF JOB ID: ??[id number] us Herberth Rodgers MD IMG US PROCEDURES Final Re sult documented in this encounter Visit Diagnoses Diagnosis End stage renal disease (CMS/HCC) (HCC) End stage renal disease Other specified pre-operative examination documented in this encounter Care Teams Panel Installer Relationship Specialty Start Date End Date Gaudencio Miranda MD [address] [place] [phone] PCP - General 07/25/16 documented as of this encounter
--- OUTSIDE RECORDS SUMMARY | 2024-03-07 17:32 | XMS_ITS | Encounter Summary ---
Author Organization [facility] Address [address] [place] [address] Care Team Providers Care Board Lining Machine Operator Name Role Phone Gaudencio Miranda MD Primary Care Provider [phone] Reason for Referral * Diagnostic Imaging (Routine) - Closed Specialty Diagnoses / Procedures Referred By Mallory valentino Referred To Contact Diagnoses End stage renal disease (CMS/HCC) (HCC) Other specified pre-operative examination Procedures US Vein Mapping Duplex Upper Extremity Bilateral Herberth Rodgers MD [address] [place] [address] [address] [address] Phone: tel: fax: [facility] [address] [place] [phone] Referral ID Status Reason Start Date Expiration Date Visits Re quested Visits Authorized [id number] Closed 11/24/2020 12/24/2021 1 1 Reason for Visit * Reason Comments New Patient esrd * Consultation (Routine) - Closed Specialty Diagnoses / Procedures Referred By Mallory valentino Referred To Contact Vascular Surgery Diagnoses End stage renal disease (CMS/HCC) (HCC) Stevenson Penaloza MD Phone: tel: fax: Herberth Rodgers MD [address] [place] [address] [address] [address] Phone: tel: fax: Referral ID Status Reason Start Date Expiration Date V isits Requested Visits Authorized [id number] Closed Specialty Services Required 11/09/2020 12/09/2021 1 1 Encounter Details Date Type Department Care Team (Late st Contact Info) Description 11/24/2020 2:30 PM CDT Office Visit [facility] Vascular and Vein Surgery [address] [place] [address] Khoa Perales, GURMEET [address] [facility] [address] [place] [address] Chronic kidney disease, stage V [...] 70-year-old female new patient referral from her blood bank worker to be further evaluated for dialysis access treatment options. Patient has history of chronic kidney disease which is worsening with anticipated need for hemodialysis in the near future, fibromyalgia and morbid obesity. She states she recently had a appointment with her blood bank worker and dialysis modalities were discussed. She states [...] and Family: Not on file ??? Attends [employer]: Not on file ??? Active Member [...] visit: Chronic kidney disease, stage V (CMS/HCC) ([facility]) (N18.5) (Primary) Assessment & Plan: Impression: Patient [...] surgical treatment options. End stage renal disease ([facility]/HCC) ([facility]) (N18.6) - Ambulatory referral to Vascular Surgery - US Vein Mapping Duplex Upper Extremity Bilateral; Future Other specified pre-operative examination (Z01.818) - US Vein Mapping Duplex Upper Extremity Bilateral; Future Other hyperlipidemia (E78.49) Assessment & Plan: Impression: Stable chronic hyperlipidemia. Plan: Medications reviewed I recommend continuing daily statin regimen as directed by patient's primary care physician. Portions of this note was created with [employer] voice recognition software. Three Dimensional Art Instructor variances may be present. Khoa Perales NP [...] Ultrasound 12/15/2020 Narrative 12/16/2020 1:59 PM CDT [employer] Job ID: [id number] [employer] Document ID: [id number] Dictated date/time: [id number] UPPER EXTREMITY VEIN MAPPING REASON FOR EXAM [...] arteriovenous fistula creation. JOB ID/VF JOB ID: ??[id number] Herberth Rodgers MD [facility] PROCEDURES Final Re sult documented in this [...] 21 documented in this encounter Care Teams Board Lining Machine Operator Relationship Specialty Start Date End Date Gaudencio Miranda MD [address] [place] [address] PCP - General 07/25/16 documented as of this encounter
--- OUTSIDE RECORDS SUMMARY | 2024-03-07 17:32 | XMS_ITS | Encounter Summary ---
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 ??Testing performed by the [facility] Molecular Infectious Disease [facility]. The 2019-Novel Coronavirus [...] April 22, 2020. First COVID-19 test? Unknown [facility] Employeed in healthcare? Unknown [facility] status? No [facility] Group care resident? Unknown [facility] Hospitalized? No [facility] Is patient in ICU? No [facility] Symptomatic as defined by CDC? No [facility] Nasopharyngeal 12/27/2020 8: 15 PM CDT 12/27/2020 8:55 PM CDT Narrative [facility] - 12/28/2020 8:51 AM CDT What is the reason for testing?->Screening prior to scheduled procedure or surgery (batch) Herberth Rodgers MD LAB MICROBIOLOGY - GENERAL ORDERABLES Final Result [facility] Department [place] [address] documented in this encounter Visit Diagnoses Diagnosis Pre-op testing Unspecified pre-operative examination documented in this encounter Care Teams Facility Designer Relationship Specialty Start Date End Date Gaudencio Miranda MD [address] [place] [address] PCP - General 07/25/16 documented as of this encounter
--- OUTSIDE RECORDS SUMMARY | 2024-03-07 17:32 | XMS_ITS | Encounter Summary ---
Author Organization [facility] Healthcare Address [address] [place] [address] Care Team Providers Care Laundry Machine Mechanic Name Role Phone Gaudencio Miranda MD Primary Care Provider [phone] Herberth Rodgers MD Unavailable [phone] Reason for Visit * Auth/Cert Specialty Diagnoses / Procedures Referred By Contmarilee t Referred To Contact Diagnoses End stage renal disease (CMS/HCC) (HCC) End stage renal disease (CMS/HCC) (HCC) [N18.6] Procedures MS CREAT AV FISTULA,AUTOGENOUS GRAFT MS CREAT AV FISTULA,NON-AUTOGENOUS GRAFT LEFT UPPER EXTREMITY ARTERIOVENOUS FISTULA CREATION Referral ID Status Reason Start Date Expiration Date Visits Re quested Visits Authorized [id number] 1 1 Encounter Details Date Type Department Care Team (Latest Contact Info) Description 02/24/2021 10:49 AM POLICE CHIEF - 02/27/2021 7:59 PM POLICE CHIEF Hospital Encounter [place] [id number] [place] [address] Herberth Rodgers MD [address] [facility] [address] [id number] Kiera Quintana MD [address] [facility] [place] [address] [place] [address] [place] [address] [place] [address] Hypoxia (Primary Dx); Acute respiratory failure with [...] on file Legal Sex Female 12:59 AM POLICE CHIEF Gender Identity Not on file Sexual Orientation Not on file documented as of this encounter Last Filed Vital Signs Vital Sign Reading Time Taken Comments Blood Pressure 124/76 02/27/2021 5:00 PM POLICE CHIEF Pulse 63 02/27/2021 5:00 PM POLICE CHIEF Temperature 36.7 ??C (98 ??F) 02/27/2021 5:00 PM POLICE CHIEF Respiratory Rate 16 02/27/2021 5:00 PM POLICE CHIEF Oxygen Saturation 94% 02/27/2021 5:00 PM POLICE CHIEF Inhaled Oxygen Concentration - - Weight 136 kg (299 lb 13.2 oz) 02/25/2021 11:45 AM POLICE CHIEF Height 172 cm (5' 7.72 ) 02/25/2021 11:45 AM POLICE CHIEF Body Mass Index 45.97 02/25/2021 11:45 AM POLICE CHIEF documented in this encounter Discharge Summaries * [...] supplemental O2 with clinic follow up with shelving supervisor for evaluation and management of Lung mass/fibrosis [...] Your Medications These medications were sent to [id number] - [place], [place] - [address] [facility] [address] [facility] [id number] ?? albuterol HFA 90 mcg/actuation inhaler ?? [...] Time Provider Department Center 03/09/2021 11:00 AM Hebrerth Rodgers MD VASC BLV 120 MG Decent 08/01/2021 11:00 AM Stacy Peña MD MG CAR MRYVL MG Decent Contact Information for Follow-ups Herberth Rodgers MD Specialty: Surgery, Vascular Surgery, General Surgery Relationship: Surgeon [address] [place] [address] [address] [facility] [address] Next Steps: Follow up Comments: Follow-up with Dr. Rodgers in office within 1-2 weeks. Please call for appointment. Questions: To provider: HERBERTH RODGERS Salik, MD Specialty: Pulmonary Disease, Internal Medicine, Critical Care Med [address] [place] [address] [address] [facility] [address] Next Steps: Schedule an appointment as soon as possible for a visit in 2 week(s) Gaudencio Miranda MD Specialty: Family Medicine, Internal Medicine Relationship: PCP - General [address] [place] [id number] Next Steps: Follow up in 1 week(s) [...] validated. Cece Veras MD 10:30 PM 02/27/2021 [facility] Hospitalist Group CE CHIEF documented in this encounter Discharge Instructions * Attachments The following attachments cannot be sent through Care Everywhere. * Arteriovenous Fistula Creation for Hemodialysis (Discharge Care) (Mexican) documented in this encounter Medications at Time [...] 1L at rest and 2L with activity. FIRE EXTINGUISHER TECHNICIAN faxed clinical information to [facility]. Patcher to bring tank out after everything is received and benefits are verified. FIRE EXTINGUISHER TECHNICIAN was informed it could be later this evening before everything is verified. KAROL Hays 02/27/2021 4:30 PM CE CHIEF * Vance Turcios RRT - 02/27/2021 4:04 [...] NC w/ activity $ Oximetry Multiple Yes CE CHIEF * Padmini Trinh MD - 02/27/2021 1:52 [...] to the use of voice recognition software. CE CHIEF * Anne Gottlieb JOB SUPERINTENDENT - 02/27/2021 9:55 AM CST 02/27/21 0955 [...] Date Expected End Date End Date PT [facility] 1 02/25/21 03/04/21 -- Goal Details: Will perform AAROM/AROM ex x B LE x 10 reps until indep - Goal Start Date Expected End Date End Date PT [facility] 2 02/25/21 03/04/21 -- Goal Details: Will transfer bed<>chair with wheeled walker and min assist of 1 and cues Goal Start Date Expected End Date End Date PT [facility] 3 02/25/21 03/04/21 -- Goal Details: Will amb 50 ft with wheeled walker and min assist of 1 and cues Pt progressing towards all goals CE CHIEF * Cece Veras MD - 02/27/2021 7:21 [...] Complete W Doppler/CF Result Date: 02/07/2021 Narrative: [facility] Medical Group Cardiology [address], [place] [address] [address] [facility] [address], [place] [address] P:[phone] P:[phone] Echocardiographic Report Patient Name: PEG SON : [...] Findings: Interpretation Site: Exam was interpreted at [facility]. Left Ventricle: Normal left ventricular systolic function. [...] used. Electronically Signed By: Geena Tran MD, [facility] 2021-02-07 19:19:45 POLICE CHIEF Current Facility-Administered Medications Medication Dose Route Frequency [...] Once PRN Kiera Quintana MD ??? multivit noryuesd-seaj-UE-calcium (THERA-M) tablet 1 tablet 1 tablet oral [...] Cymbalta Hypothyroidism Continue levothyroxine Voice recognition software Fooala Direct was used dictate and transcribe this document. Explosives Mixer Operator variances may occur. Despite proofreading, typographical errors may occur. Cece Veras MD 02/27/2021 7:21 AM CE CHIEF * Padmini Trinh MD - 02/26/2021 1:23 [...] to the use of voice recognition software. CE CHIEF CE CHIEF * Pieter Funes, JOB SUPERINTENDENT - 02/26/2021 10:20 AM CST Physical Therapy [...] Date Expected End Date End Date PT [facility] 1 02/25/21 03/04/21 -- Goal Details: Will perform AAROM/AROM ex x B LE x 10 reps until indep Goal Start Date Expected End Date End Date PT [facility] 2 02/25/21 03/04/21 -- Goal Details: Will transfer bed<>chair with wheeled walker and min assist of 1 and cues met Goal Start Date Expected End Date End Date PT [facility] 3 02/25/21 03/04/21 -- Goal Details: [...] posted at bedside and within medical record. CE CHIEF * Андрей Valdes MD - 02/26/2021 8:07 AM CST Vascular Surgery Daily Progress Patient Name/MRN: Peg Son [id number] Treatment Team: Vascular Surgery Attending: Cece Veras MD Today's Date: 02/26/2021 Room/Bed: [place] [id number] Admit Date: 02/24/2021 Code Status: Full Code [...] Once PRN Kiera Quintana MD ??? multivit kyvvrgnb-nosh-GN-calcium (THERA-M) tablet 1 tablet 1 tablet oral [...] As per medical consultants Андрей Valdes MD CE CHIEF * Cece Veras MD - 02/26/2021 7:21 [...] EKG/Min 68 BPM Atrial Rate 68 BPM MS-Interval (MSEC) 198 ms QRS-Interval (MSEC) 104 ms QT-Interval (MSEC) 386 ms QTc 410 ms P Hedley 76 degrees R Hedley -47 degrees T Hedley 42 degrees Diagnosis Normal sinus rhythm Left [...] Complete W Doppler/CF Result Date: 02/07/2021 Narrative: [facility] Medical Group Cardiology [address] [facility] [address], [place] [address] [address] [facility] [address], [place] [address] P:[phone] P:[phone] Echocardiographic Report Patient Name: PEG SON : [...] Findings: Interpretation Site: Exam was interpreted at [facility]. Left Ventricle: Normal left ventricular systolic function. [...] used. Electronically Signed By: Geena Tran MD, [id number] 19:19:45 POLICE CHIEF Current Facility-Administered Medications Medication Dose Route Frequency [...] Once PRN Kiera Quintana MD ??? multivit mkzdmedh-xzjo-NC-calcium (THERA-M) tablet 1 tablet 1 tablet oral [...] Problem: Acute respiratory failure with hypoxia (CMS/HCC) ([facility]) Active Problems: Fibromyalgia Other hyperlipidemia [...] Cymbalta Hypothyroidism Continue levothyroxine Voice recognition software kissnofrog Fluency Direct was used dictate and transcribe this document. Explosives Mixer Operator variances may occur. Despite proofreading, typographical errors may occur. Cece Veras MD 02/26/2021 7:21 AM CE CHIEF * Ailyn Rainey RN - 02/25/2021 3:31 [...] transport arranged?: No (02/24/212102) Health Insurance Coverage: [facility] Medicare Prescription Coverage: UHC Medicare Pharmacy: [facility] Primary Care Provider: Gaudencio Miranda MD [...] access to community resources. Ailyn Rainey, RN CE CHIEF * Parveen Garcias - 02/25/2021 10:09 AM CST Pt appreciated the visit but she did not indicate a desire for spiritual support. 02/25/21 1000 Time Spent Start Time 1009 Patient Spiritual Assessment Spirituality Assessed Yes Episcopal Affiliation None Active in Scientology No Clinical Encounter Type Visited With Patient Response Type Routine visit CE CHIEF * Ashli Mora, PT - 02/25/2021 8:53 [...] to upper level. Prior Function Level of Dougherty Needs assistance with ADLs;Dependent with homemaking;Independent with [...] strength;Decreased endurance;Impaired balance;Decreased mobility;Pain Recommendation/Plan PT Recommendation/Plan Residential Facility PT Frequency 5-7x/wk Treatment/Interventions Balance Training;Bed mobility;Endurance training;Functional activity;Functional transfer training;Gait training;Strengthening;Therapeutic activity;Therapeutic exercise;Transfer training PT - Next Appointment 03/11/21 PT Evaluation Complete Yes Multi-Disciplinary Problems (from Physical Therapy) Active Problems Problem: PT [facility] Start Date: 02/25/21 Goal Start Date Expected End Date End Date PT [facility] 1 02/25/21 03/04/21 -- Goal Details: Will perform AAROM/AROM ex x B LE x 10 reps until indep Goal Start Date Expected End Date End Date PT [facility] 2 02/25/21 03/04/21 -- Goal Details: Will transfer bed<>chair with wheeled walker and min assist of 1 and cues Goal Start Date Expected End Date End Date PT [facility] 3 02/25/21 03/04/21 -- Goal Details: [...] posted at bedside and within medical record. CE CHIEF * Kelsea Chung, OT - 02/25/2021 8:52 [...] in the home. Prior Function Level of Doug[place] Independent functional transfers;Independent with ambulation;Needs assistancewith ADLs;Needs [...] Plan of care initiated Recommendation/Plan OT Recommendation [facility] OT Recommendation/Plan Comments Pt presents with functional decline, hx of falls, and decreased safety awareness; will benefit from SNF/rehab services at [facility] to promote return to PLOF/daily routine. OT Frequency 3-5x/wk Treatment/Interventions ADL/IADL retraining;Balance Training;Bed mobility;Endurance training;Compensatory technique education;Equipment eval/education;Functional activity;Functional mobility training;Functional transfer training;Parent/caregiver training and education;Strengthening;Therapeutic activity;Therapeutic exercise;Transfer training OT - Next Appointment 03/11/21 OT Evaluation Complete Yes Multi-Disciplinary Problems (from Occupational Therapy) Active Problems Problem: OT [facility] Start Date: 02/25/21 Goal Start Date Expected End Date End Date OT [facility] 1 02/25/21 03/04/21 -- Goal Details: 1) UE AND LE ADL FROM CHAIR WITH MIN ASSIST WITH WW AND AE PRN. Goal Start Date Expected End Date End Date OT [facility] 2 02/25/21 03/04/21 -- Goal Details: 2) FUNCTIONAL MOBILITY TO/FROM BATHROOM AND ALL ASPECTS TOILETING SBA WITH DME. Goal Start Date Expected End Date End Date OT [facility] 3 02/25/21 03/04/21 -- Goal Details: 3) STAND AT SINK X4 MIN FOR ADL WITH GOOD BALANCE. Goal Start Date Expected End Date End Date [facility] 4 02/25/21 03/04/21 -- Goal Details: 4) [...] level of functional performance prior to evaluation. CE CHIEF * Cece Vears MD - 02/25/2021 8:44 AM CST General [...] Complete W Doppler/CF Result Date: 02/07/2021 Narrative: [facility] Medical Group Cardiology [address] [facility] [address], [place] [address] [address] [facility] [address], [place] [address] P:[phone] P:[phone] Echocardiographic Report Patient Name: PEG SON : [...] Findings: Interpretation Site: Exam was interpreted at [facility]. Left Ventricle: Normal left ventricular systolic function. [...] used. Electronically Signed By: Geena Tran MD, [facility] 2021-02-07 19:19:45 POLICE CHIEF Current Facility-Administered Medications Medication Dose Route Frequency [...] Once PRN Kiera Quintana MD ??? multivit mlitfarz-lplz-TD-calcium (THERA-M) tablet 1 tablet 1 tablet oral [...] Problem: Acute respiratory failure with hypoxia (CMS/HCC) ([facility]) Active Problems: Fibromyalgia Other hyperlipidemia End stage renal disease (CMS/HCC) ([facility]) Resolved Problems: No resolved hospital [...] Cymbalta Hypothyroidism Continue levothyroxine Voice recognition software Fooala Direct was used dictate and transcribe this document. Explosives Mixer Operator variances may occur. Despite proofreading, typographical errors may occur. Cece Veras MD 02/25/2021 8:44 AM CE CHIEF documented in this encounter H&P Notes * [...] 12/2020 Previous surgery cancelled R/T possible CP. Orchid Transplanter ruled out heart disease, testing negative. ??? [...] Problems: Fibromyalgia-continue Cymbalta, Lyrica, and as needed [place] Other hyperlipidemia-continue rosuvastatin End stage renal disease [...] been used dictate and transcribe this document. Explosives Mixer Operator variances may occur. Despite proofreading, typographical errors may occur CE CHIEF * Herberth Rodgers MD - 02/24/2021 2:56 PM CST Vascular Surgery History and Physical Patient Name/MRN: Peg Son [id number] Treatment Team: Vascular Surgery Attending: Herberth Rodgers MD Today's Date: 02/24/2021 Admitting Service: Surgery [facility] Admit Date: 02/24/2021 Code Status: No Order [...] 12/2020 Previous surgery cancelled R/T possible CP. Orchid Transplanter ruled out heart disease, testing negative. ??? [...] Gaudencio Miranda MD Primary Care Physician number: [phone] Review of Systems: Constitutional: Negative for activity [...] Principal Problem: End stage renal disease (CMS/HCC) ([facility]) Impression: End-stage renal disease Plan: Left arm AV fistula possible graft. The procedure and all risks have been explained. CE CHIEF documented in this encounter Consult Notes * [...] to the use of voice recognition software. CE CHIEF documented in this encounter Nursing Notes * Ana Power RN - 02/25/2021 5:51 AM CST Patient AOx4, on 3L nc. Vitals stable, received prn [place] for back pain. Abnormal abg- results reported to Dr. Quintana. Left arm nwb after av fistula creation, +1 radial pulse, minimal pain. Historyof frequent falls at home my knees give out . PT and OT to evaluate. Distended abdomen, says she has difficulty voiding completely. Pt also says she she has a hard time swallowing sometimes. Passed bedside swallow eval. CE CHIEF * Ana Marlow RN - 02/24/2021 6:43 [...] hospitalist for eval and heagreed. Hospitalist paged. CE CHIEF documented in this encounter Miscellaneous Notes * [...] and mental status changes, document and update licensed master social worker and MD as needed 4. [...] for the Shift: fall prevention, pain management CE CHIEF * ECIN Note - Elizabeth Arnold MSW [...] 1605 $ Oximetry Multiple Yes 02/27/21 1603 CE CHIEF * Plan of Care - Ana Power RN - 02/27/2021 6:15 AM CST Problem: Health Behavior: Goal: Understanding of discharge needs will improve Outcome: Progressing Problem: Safety: Goal: Will remain free from falls Outcome: Progressing Problem: Activity: Goal: Mobility will improve Outcome: Progressing CE CHIEF * Plan of Care - Mary Fry [...] and mental status changes, document and update licensed master social worker and MD as needed 4. [...] for the Shift: fall prevention, pain management CE CHIEF * Plan of Care - Ana Power [...] to monitor. Weaned to 1L at 5am. CE CHIEF CE CHIEF * Plan of Care - Marion Mora RN - 02/25/2021 4:31 PM POLICE CHIEF Problem: Facility Isolation Psychosocial Wellbeing Description: Resident [...] and mental status changes, document and update licensed master social worker and MD as needed 4. [...] air. Patient currently on 2L/min vianasal cannula. CE CHIEF * Significant Event - Mirian Deras RRT - 02/24/2021 11:38 PM CST Notified RN Ana Waldron of critical results CE CHIEF * Perioperative Nursing Note - Diana Dolan RN - 02/24/2021 8:20 PM POLICE CHIEF Pt tx to inpatient floor. Bedside shift report given to RN CE CHIEF * Perioperative Nursing Note - Radha Florez RN - 02/24/2021 5:35 PM POLICE CHIEF Pt placed in recliner at this time. Sats drop intot the 70's on RA, pt was placed on 3L per NC, given incentive spirometer and placed in recliner. Sats on 3L per NC is 97%. CE CHIEF * Op Note - Herberth Rodgers MD [...] PM This note was transcribed using the Everfi voice recognition system without human director executive communications. In an effort to expedite patient care, this report has not been adjusted for typographical, grammatical, and syntax by a trained medical territory manager. CE CHIEF * Pre-Procedure Instructions - Eduarda Terry RN - 02/22/2021 12:40 PM POLICE CHIEF We are pleased that you and your doctor have chosen [facility] for your surgery. We hope [...] please call us. We can be reached [phone]. [email or web address] CE CHIEF documented in this encounter Plan of Treatment Not on file documented as of this encounter Procedures Procedure Name Priority Date/Time Associated Diagnosis Comments HOME O2 EVAL (DESATURATION SCREEN) Routine 02/27/2021 1:52 PM POLICE CHIEF EGFR Routine 02/27/2021 4:40 AM POLICE CHIEF DIFFERENTIAL AUTO Routine 02/27/2021 4:4 0 AM POLICE CHIEF CBC WITH AUTO DIFFERENTIAL Routine 02/27/2021 4:40 AM POLICE CHIEF PHOSPHORUS Routine 02/27/2021 4:40 AM POLICE CHIEF MAGNESIUM Routine 02/27/2021 4:40 AM POLICE CHIEF COMPREHENSIVE METABOLIC PANEL Routine 02/27/2021 4:40 AM POLICE CHIEF EGFR Routine 02/26/2021 5:19 AM POLICE CHIEF DIFFERENTIAL AUTO Routine 02/26/2021 5:1 9 AM POLICE CHIEF CBC WITH AUTO DIFFERENTIAL Routine 02/26/2021 5:19 AM POLICE CHIEF PHOSPHORUS Routine 02/26/2021 5:19 AM POLICE CHIEF MAGNESIUM Routine 02/26/2021 5:19 AM POLICE CHIEF COMPREHENSIVE METABOLIC PANEL Routine 02/26/2021 5:19 AM POLICE CHIEF US VEIN DUPLEX LOWER EXTREMITY BILATERAL COMPLETE IP Routine 02/25/2021 2:27 PM POLICE CHIEF XR CHEST 1 VIEW Routine 02/25/2021 1:42 PM POLICE CHIEF NM PULMONARY PERFUSION IMAGING IP Routine 02/25/2021 1:41 PM POLICE CHIEF ECG 12-LEAD Routine 02/25/2021 7:49 AM POLICE CHIEF EGFR Routine 02/25/2021 5:31 AM POLICE CHIEF DIFFERENTIAL AUTO Routine 02/25/2021 5:3 1 AM POLICE CHIEF PRO B-TYPE NATRIURETIC PEPTIDE Routine 02/25/2021 5:31 AM POLICE CHIEF CBC WITH AUTO DIFFERENTIAL Routine 02/25/2021 5:31 AM POLICE CHIEF PHOSPHORUS Routine 02/25/2021 5:31 AM POLICE CHIEF MAGNESIUM Routine 02/25/2021 5:31 AM POLICE CHIEF COMPREHENSIVE METABOLIC PANEL Routine 02/25/2021 5:[address] CHEST WO CONTRAST IP Routine 02/24/2021 11:10 PM POLICE CHIEF BLOOD GAS, ARTERIAL Timed 02/24/2021 1 0:34 PM POLICE CHIEF CREATION ARTERIOVENOUS FISTULA - ARM 02/24/2021 3:04 PM POLICE CHIEF End stage renal disease (CMS/HCC) (HCC) EGFR STAT 02/24/2021 12:32 PM POLICE CHIEF DIFFERENTIAL AUTO STAT 02/24/2021 12: 32 PM POLICE CHIEF CBC WITH AUTO DIFFERENTIAL STAT 02/24/2021 12:32 PM POLICE CHIEF APTT STAT 02/24/2021 12:32 PM POLICE CHIEF PROTIME-INR STAT 02/24/2021 12:32 PM POLICE CHIEF BASIC METABOLIC PANEL STAT 02/24/2021 12:32 PM POLICE CHIEF documented in this encounter Results * eGFR (02/27/2021 4:40 AM POLICE CHIEF) eGFR 19 mL/min/1.7 3 m2 [facility] Comment: Interpretive Data Reference Interval Normal [...] last reviewed 2020 Blood 02/27/2021 4:40 AM POLICE CHIEF 02/27/2021 5:36 AM POLICE CHIEF us Kiera Quintana MD LAB BLOOD ORDERABLE S Final Result [facility] [address] [facility] Department [place] [address] * (ABNORMAL) Differential, auto (02/27/2021 4:40 AM POLICE CHIEF) Pathologist [facility] Neutrophil abs 2.8 1.7 - 6.5 K/cumm [facility] Imm gran abs 0.0 0.0 - 0.1 K/cumm [facility] Lymphocyte abs 2.0 0.8 - 3.3 K/cumm [facility] Monocyte abs 0.9(H) 0.2 - 0.8 K/cumm [facility] Eosinophil abs 0.2 0.0 - 0.5 K/cumm [facility] Basophil abs 0.0 0.0 - 0.1 K/cumm [facility] Neutrophil pct 47.5 % [facility] Comment: Interpretive Data Percent cell count reference ranges are not reported, since discordance with absolute values may lead to misinterpretation of CBC data. Current Interpretive Data was last revised on 2017. Imm gran pct 0.2 % [facility] Comment: Interpretive Data Percent cell count reference ranges are not reported, since discordance with absolute values may lead to misinterpretation of CBC data. Current Interpretive Data was last revised on 2017. Lymphocyte pct 33.2 % [facility] Comment: Interpretive Data Percent cell count reference ranges are not reported, since discordance with absolute values may lead to misinterpretation of CBC data. Current Interpretive Data was last revised on 2017. Monocyte pct 14.5 % [facility] Comment: Interpretive Data Percent cell count reference ranges are not reported, since discordance with absolute values may lead to misinterpretation of CBC data. Current Interpretive Data was last revised on 2017. Eosinophil pct 3.9 % [facility] Comment: Interpretive Data Percent cell count reference ranges are not reported, since discordance with absolute values may lead to misinterpretation of CBC data. Current Interpretive Data was last revised on 2017. Basophil pct 0.7 % [facility] Comment: Interpretive Data Percent cell count reference ranges are not reported, since discordance with absolute values may lead to misinterpretation of CBC data. Current Interpretive Data was last revised on 2017. Blood 02/27/2021 4:40 AM POLICE CHIEF 02/27/2021 5:36 AM POLICE CHIEF us Kiera Quintana MD LAB BLOOD ORDERABLE S Final Result [facility] [address] [facility] [place] [address] * (ABNORMAL) CBC with auto differential (02/27/2021 4:40 AM POLICE CHIEF) WBC 5.9 3.8 - 9.9 K/cumm [facility] Hgb 13.3 11.9 - 15.5 g/dL [facility] Hct 42.4 35.6 - 45.5 % [facility] Plt 156 150 - 400 K/cumm [facility] MPV 11.5 9.1 - 12.3 fL [facility] RBC 4.30 3.90 - 5.20 M/cumm [facility] MCV 98.6(H) 81.3 - 96.4 fL [facility] MCH 30.9 27.1 - 33.3 pg [facility] MCHC 31.4(L) 32.3 - 35.7 g/dL [facility] RDW CV 14.3 11.1 - 14.9 % [facility] RDW SD 51.8(H) 35.7 - 48.1 fL [facility] NRBC abs 0.00 0.00 - 0.01 K/cumm [facility] Blood 02/27/2021 4:40 AM POLICE CHIEF 02/27/2021 5:36 AM POLICE CHIEF us Kiera Quintana MD LAB BLOOD ORDERABLE S Final Result Performing Organization Address [place] Hospital/ZIP Co de Phone Number [address] [place] [address] * Phosphorus (02/27/2021 4:40 AM POLICE CHIEF) Phosphorus, pl 4.5 2.3 - 4.5 mg/dL [facility] Blood 02/27/2021 4:40 AM POLICE CHIEF 02/27/2021 5:36 AM POLICE CHIEF us Kiera Quintana MD LAB BLOOD ORDERABLE S Final Result [address] [place] [address] * Magnesium (02/27/2021 4:40 AM POLICE CHIEF) Magnesium 2.1 1.4 - 2.5 mg/dL [facility] Blood 02/27/2021 4:40 AM POLICE CHIEF 02/27/2021 5:36 AM POLICE CHIEF us Kiera Quintana MD LAB BLOOD ORDERABLE S Final Result Performing Organization Address City/[facility]/ZIP Co de Phone Number [facility] [address] [place] [address] * (ABNORMAL) Comprehensive metabolic panel (02/27/2021 4:40 AM POLICE CHIEF) Sodium 138 135 - 145 mmol/L [facility] Potassium, pl 4.0 3.3 - 4.9 mmol/L [facility] Chloride 98 97 - 110 mmol/L [facility] CO2 30 22 - 32 mmol/L [facility] Anion gap 10 2 - 15 mmol/L [facility] BUN 40(H) 8 - 25 mg/dL [facility] Creatinine 2.50(H) 0.60 - 1.10 mg/dL [facility] Glucose 112 70 - 199 mg/dL [facility] Comment: Interpretive Data Fasting glucose [...] 2017. Calcium 9.0 8.5 - 10.3 mg/dL [facility] Bilirubin, total 0.3 0.1 - 1.2 mg/dL [facility] Protein, pl 6.6 6.5 - 8.5 g/dL [facility] Albumin 3.7 3.5 - 5.0 g/dL [facility] Alk phos 86 40 - 130 Units/L [facility] ALT 6(L) 7 - 45 Units/L [facility] AST 25 10 - 45 Units/L [facility] Blood 02/27/2021 4:40 AM POLICE CHIEF 02/27/2021 5:36 AM POLICE CHIEF Kiera Quintana MD LAB BLOOD ORDERABLE S Final Result [facility] [address] [place] [address] * eGFR (02/26/2021 5:19 AM POLICE CHIEF) eGFR 16 mL/min/1.7 3 m2 [facility] Comment: [...] last reviewed 2020 Blood 02/26/2021 5:19 AM POLICE CHIEF 02/26/2021 5:39 AM POLICE CHIEF us Kiera Quintana MD LAB BLOOD ORDERABLE S Final Result [facility] [address] [place] [address] * Differential, auto (02/26/2021 5:19 AM POLICE CHIEF) [facility] Neutrophil abs 3.1 1.7 - 6.5 K/cumm [facility] Imm gran abs 0.0 0.0 - 0.1 K/cumm [facility] Lymphocyte abs 2.1 0.8 - 3.3 K/cumm [facility] Monocyte abs 0.8 0.2 - 0.8 K/cumm [facility] Eosinophil abs 0.1 0.0 - 0.5 K/cumm [facility] Basophil abs 0.0 0.0 - 0.1 K/cumm [facility] Neutrophil pct 50.3 % [facility] Comment: Interpretive Data Percent cell count reference ranges are not reported, since discordance with absolute values may lead to misinterpretation of CBC data. Current Interpretive Data was last revised on 2017. Imm gran pct 0.2 % [facility] Comment: Interpretive Data Percent cell count reference ranges are not reported, since discordance with absolute values may lead to misinterpretation of CBC data. Current Interpretive Data was last revised on 2017. Lymphocyte pct 34.7 % [facility] Comment: Interpretive Data Percent cell count reference ranges are not reported, since discordance with absolute values may lead to misinterpretation of CBC data. Current Interpretive Data was last revised on 2017. Monocyte pct 13.2 % [facility] Comment: Interpretive Data Percent cell count reference ranges are not reported, since discordance with absolute values may lead to misinterpretation of CBC data. Current Interpretive Data was last revised on 2017. Eosinophil pct 1.3 % [facility] Comment: Interpretive Data Percent cell count reference ranges are not reported, since discordance with absolute values may lead to misinterpretation of CBC data. Current Interpretive Data was last revised on 2017. Basophil pct 0.3 % [facility] Comment: Interpretive Data Percent cell count reference ranges are not reported, since discordance with absolute values may lead to misinterpretation of CBC data. Current Interpretive Data was last revised on 2017. Blood 02/26/2021 5:19 AM POLICE CHIEF 02/26/2021 5:39 AM POLICE CHIEF us Kiera Quintana MD LAB BLOOD ORDERABLE S Final Result [facility] [address] [place] [address] * (ABNORMAL) CBC with auto differential (02/26/2021 5:19 AM POLICE CHIEF) [facility] WBC 6.1 3.8 - 9.9 K/cumm [facility] Hgb 13.0 11.9 - 15.5 g/dL [facility] Hct 42.1 35.6 - 45.5 % [facility] Plt 144(L) 150 - 400 K/cumm [facility] MPV 11.0 9.1 - 12.3 fL [facility] RBC 4.28 3.90 - 5.20 M/cumm [facility] MCV 98.4(H) 81.3 - 96.4 fL [facility] MCH 30.4 27.1 - 33.3 pg [facility] MCHC 30.9(L) 32.3 - 35.7 g/dL [facility] RDW CV 14.4 11.1 - 14.9 % [facility] RDW SD 52.1(H) 35.7 - 48.1 fL [facility] NRBC abs 0.00 0.00 - 0.01 K/cumm [facility] Blood 02/26/2021 5:19 AM POLICE CHIEF 02/26/2021 5:39 AM POLICE CHIEF Kiera Quintana MD LAB BLOOD ORDERABLE S Final Result Performing Organization Address [facility] Co de Phone Number [address] [place] [address] * Phosphorus (02/26/2021 5:19 AM POLICE CHIEF) [facility] Phosphorus, pl 4.2 2.3 - 4.5 mg/dL [facility] Blood 02/26/2021 5:19 AM POLICE CHIEF 02/26/2021 5:39 AM POLICE CHIEF Kiera Quintana MD LAB BLOOD ORDERABLE S Final Result Performing Organization Address [facility] Co de Phone Number [address] [place] [address] * Magnesium (02/26/2021 5:19 AM POLICE CHIEF) Pathologist [facility] Magnesium 2.3 1.4 - 2.5 mg/dL [facility] Blood 02/26/2021 5:19 AM POLICE CHIEF 02/26/2021 5:39 AM POLICE CHIEF Kiera Quintana MD LAB BLOOD ORDERABLE S Final Result [facility] [address] [place] [address] * (ABNORMAL) Comprehensive metabolic panel (02/26/2021 5:19 AM POLICE CHIEF) [facility] Sodium 142 135 - 145 mmol/L [facility] Potassium, pl 4.3 3.3 - 4.9 mmol/L [facility] Chloride 101 97 - 110 mmol/L [facility] CO2 31 22 - 32 mmol/L [facility] Anion gap 10 2 - 15 mmol/L [facility] BUN 37(H) 8 - 25 mg/dL [facility] Creatinine 2.90(H) 0.60 - 1.10 mg/dL [facility] Glucose 103 70 - 199 mg/dL [facility] Comment: Interpretive Data Fasting glucose [...] 2017. Calcium 9.3 8.5 - 10.3 mg/dL [facility] Bilirubin, total 0.3 0.1 - 1.2 mg/dL [facility] Protein, pl 6.2(L) 6.5 - 8.5 g/dL [facility] Albumin 3.6 3.5 - 5.0 g/dL [facility] Alk phos 83 40 - 130 Units/L [facility] ALT 10 7 - 45 Units/L [facility] AST 27 10 - 45 Units/L [facility] Blood 02/26/2021 5:19 AM POLICE CHIEF 02/26/2021 5:39 AM POLICE CHIEF Kiera Quintana MD LAB BLOOD ORDERABLE S Final Result [facility] [address] [place] [address] * US Vein Duplex Lower Extremity Bilateral Complete (02/25/2021 2:27 PM POLICE CHIEF) Anatomical Region Laterality Modality Vascular Bilateral Ultrasound 02/25/2021 Narrative 02/28/2021 2:45 PM POLICE CHIEF [employer] Job ID: [id number] [employer] Document ID: [id number] Dictated date/time: [id number] REASON FOR STUDY Respiratory failure. No thrombus seen in the common femoral, superficial femoral, popliteal, posterior peroneal or greater saphenous veins bilaterally. IMPRESSION No evidence of deep venous thrombosis in either lower extremity. JOB ID/VF JOB ID: ??[id number] Cece Veras MD IMG US PROCEDURES Final Result * XR Chest 1 View (02/25/2021 1:42 PM POLICE CHIEF) Anatomical Region Laterality Modality Body, Chest N/A Computed Radiogr aphy 02/25/2021 1:49 PM POLICE CHIEF Narrative 02/25/2021 1:50 PM POLICE CHIEF EXAM DESCRIPTION: ?? XR CHEST 1 VIEW [...] D: ??02/25/2021 1:50 PM T: Report ID: [id number] Reading Location: ??[id number] Procedure Note Brady Holland Jr., MD - [...] by Brady Holland M.D. T: Report ID: [id number] Reading Location: [id number] Cece Veras MD IM XR PROCEDURES Final Result * NM Pulmonary Perfusion Imaging (02/25/2021 1:41 PM POLICE CHIEF) Anatomical Region Laterality Modality Body N/A Nuclear Medicine 02/25/2021 1:48 PM POLICE CHIEF Narrative 02/25/2021 2:00 PM POLICE CHIEF EXAM DESCRIPTION: ?? NM PULMONARY PERFUSION IMAGING [...] D: ??02/25/2021 2:00 PM T: Report ID: [id number] Reading Location: ??[id number] Procedure Note Brady Holland Jr., MD - [...] by Brady Holland M.D. T: Report ID: [id number] Reading Location: [place] [address] us Cece Veras MD IMG NM PROCEDURES Final Result * ECG 12 lead (02/25/2021 7:49 AM POLICE CHIEF) Ventricular Rate EKG/Min 68 BPM [facility] Atrial Rate 68 BPM [facility] MS-Interval (MSEC) 198 ms [facility] QRS-Interval (MSEC) 104 ms [facility] QT-Interval (MSEC) 386 ms [facility] QTc 410 ms [facility] P [place] 76 degrees [facility] R [place] -47 degrees [facility] T [place] 42 degrees [facility] Diagnosis Normal sinus rhythm Left anterior fascicular block Abnormal ECG When compared with ECG of 30-DEC-2020 11:29, No significant change was found [facility] 02/25/2021 7:49 AM POLICE CHIEF 02/25/2021 2:22 PM POLICE CHIEF us Kiera Quintana MD ECG ORDERABLES Fin al Result [facility] * eGFR (02/25/2021 5:31 AM POLICE CHIEF) Pathologist [facility] eGFR 20 mL/min/1.7 [...] last reviewed 2020 Blood 02/25/2021 5:31 AM POLICE CHIEF 02/25/2021 6:25 AM POLICE CHIEF us Kiera Quintana MD LAB BLOOD ORDERABLE S Final Result [place] [address] [facility] [facility] [place] [address] * (ABNORMAL) Differential, auto (02/25/2021 5:31 AM POLICE CHIEF) Neutrophil abs 6.6(H) 1.7 - 6.5 K/cumm [facility] Imm gran abs 0.0 0.0 - 0.1 K/cumm [facility] Lymphocyte abs 1.3 0.8 - 3.3 K/cumm [facility] Monocyte abs 0.4 0.2 - 0.8 K/cumm [facility] Eosinophil abs 0.0 0.0 - 0.5 K/cumm [facility] Basophil abs 0.0 0.0 - 0.1 K/cumm [facility] Neutrophil pct 79.6 % [facility] Comment: Interpretive Data Percent cell count reference ranges are not reported, since discordance with absolute values may lead to misinterpretation of CBC data. Current Interpretive Data was last revised on 2017. Imm gran pct 0.2 % [facility] Comment: Interpretive Data Percent cell count reference ranges are not reported, since discordance with absolute values may lead to misinterpretation of CBC data. Current Interpretive Data was last revised on 2017. Lymphocyte pct 15.5 % [facility] Comment: Interpretive Data Percent cell count reference ranges are not reported, since discordance with absolute values may lead to misinterpretation of CBC data. Current Interpretive Data was last revised on 2017. Monocyte pct 4.6 % [facility] Comment: Interpretive Data Percent cell count reference ranges are not reported, since discordance with absolute values may lead to misinterpretation of CBC data. Current Interpretive Data was last revised on 2017. Eosinophil pct 0.0 % [facility] Comment: Interpretive Data Percent cell count reference ranges are not reported, since discordance with absolute values may lead to misinterpretation of CBC data. Current Interpretive Data was last revised on 2017. Basophil pct 0.1 % [facility] Comment: Interpretive Data Percent cell count reference ranges are not reported, since discordance with absolute values may lead to misinterpretation of CBC data. Current Interpretive Data was last revised on 2017. Blood 02/25/2021 5:31 AM POLICE CHIEF 02/25/2021 6:25 AM POLICE CHIEF us Kiera Quintana MD LAB BLOOD ORDERABLE S Final Result [facility] [address] [place] [address] * (ABNORMAL) CBC with auto differential (02/25/2021 5:31 AM POLICE CHIEF) WBC 8.3 3.8 - 9.9 K/cumm [facility] Hgb 14.8 11.9 - 15.5 g/dL [facility] Hct 46.7(H) 35.6 - 45.5 % [facility] Plt 205 150 - 400 K/cumm [facility] MPV 11.6 9.1 - 12.3 fL [facility] RBC 4.77 3.90 - 5.20 M/cumm [facility] MCV 97.9(H) 81.3 - 96.4 fL [facility] MCH 31.0 27.1 - 33.3 pg [facility] MCHC 31.7(L) 32.3 - 35.7 g/dL [facility] RDW CV 13.9 11.1 - 14.9 % [facility] RDW SD 49.9(H) 35.7 - 48.1 fL [facility] NRBC abs 0.00 0.00 - 0.01 K/cumm [facility] Blood 02/25/2021 5:31 AM POLICE CHIEF 02/25/2021 6:25 AM POLICE CHIEF us Kiera Quintana MD LAB BLOOD ORDERABLE S Final Result Performing Organization Address City/[facility] de Phone Number [address] [place] [address] * Phosphorus (02/25/2021 5:31 AM POLICE CHIEF) [facility] Phosphorus, pl 3.6 2.3 - 4.5 mg/dL [facility] Blood 02/25/2021 5:31 AM POLICE CHIEF 02/25/2021 6:25 AM POLICE CHIEF us Kiera Quintana MD LAB BLOOD ORDERABLE S Final Result Performing Organization Address [facility] Co de Phone Number [address] [place] [address] * Magnesium (02/25/2021 5:31 AM POLICE CHIEF) [facility] Magnesium 2.2 1.4 - 2.5 mg/dL [facility] Blood 02/25/2021 5:31 AM POLICE CHIEF 02/25/2021 6:25 AM POLICE CHIEF Result [facility] us Kiera Quintana MD LAB BLOOD ORDERABLE S Final Result Performing Organization Address [facility] de Phone Number [address] [place] [address] * (ABNORMAL) Comprehensive metabolic panel (02/25/2021 5:31 AM POLICE CHIEF) [facility] Sodium 140 135 - 145 mmol/L [facility] Potassium, pl 5.1(H) 3.3 - 4.9 mmol/L [facility] Chloride 98 97 - 110 mmol/L [facility] CO2 30 22 - 32 mmol/L [facility] Anion gap 12 2 - 15 mmol/L [facility] BUN 28(H) 8 - 25 mg/dL [facility] Creatinine 2.40(H) 0.60 - 1.10 mg/dL [facility] Glucose 138 70 - 199 mg/dL [facility] Comment: Interpretive Data Fasting glucose [...] 2017. Calcium 9.8 8.5 - 10.3 mg/dL [facility] Bilirubin, total 0.3 0.1 - 1.2 mg/dL [facility] Protein, pl 7.2 6.5 - 8.5 g/dL [facility] Albumin 4.1 3.5 - 5.0 g/dL [facility] Alk phos 92 40 - 130 Units/L [facility] ALT 13 7 - 45 Units/L [facility] AST 23 10 - 45 Units/L [facility] Blood 02/25/2021 5:31 AM POLICE CHIEF 02/25/2021 6:25 AM POLICE CHIEF us Kiera Quintana MD LAB BLOOD ORDERABLE S Final Result [facility] [address] [place] [address] * (ABNORMAL) Pro B-type natriuretic peptide (02/25/2021 5:31 AM POLICE CHIEF) NT-proBNP 782(H) <=300 pg/mL [facility] Comment: Interpretive Comments: A. Dyspnea in Acute [...] Revised Date: 2017. Blood 02/25/2021 5:31 AM POLICE CHIEF 02/25/2021 6:25 AM POLICE CHIEF us Kiera Quintana MD LAB BLOOD ORDERABLE S Final Result Performing Organization Address City/State/[facility] Phone Number [facility] [address] [place] [address] * CT Chest WO Contrast (02/24/2021 11:10 PM POLICE CHIEF) Anatomical Region Laterality Modality Body N/A Computed Tomogra phy 02/25/2021 9:38 AM POLICE CHIEF Narrative 02/25/2021 10:00 AM POLICE CHIEF EXAM DESCRIPTION: ?? CT CHEST WO CONTRAST [...] D: ??02/25/2021 10:00 AM T: Report ID: [id number] Reading Location: ??[id number] Procedure Note Naveen Kirkpatrick MD - 02/25/2021 [...] signed by Naveen GONZALES T: Report ID: [id number] Reading Location: [place] [address] us Altresshue Quintana MD IMG CT PROCEDURES F inal Result * (ABNORMAL) Blood gas, arterial (02/24/2021 10:34 PM POLICE CHIEF) pH, Art 7.32(L) 7.35 - 7.45 [facility] PCO2, Arterial 65(H) 35 - 45 mmHg [facility] PO2, Arterial 76(L) 83 - 108 mmHg [facility] HCO3 Art (Calculated) 34(H) 20 - 30 mmol/L [facility] BE, art 5 mmol/L [facility] Comment: Interpretive Data No Reference Range Established Current Interpretive Data was last revised on 2017. Blood 02/24/2021 10:3 4 PM POLICE CHIEF 02/24/2021 10:37 PM POLICE CHIEF us Kiera Quintana MD LAB BLOOD ORDERABLE S Final Result Performing Organization Address [facility] de Phone Number [address] [place] [address] * eGFR (02/24/2021 12:32 PM POLICE CHIEF) eGFR 20 mL/min/1.7 3 m2 [facility] Comment: Interpretive Data Reference Interval [...] reviewed 2020 Blood 02/24/2021 12:3 2 PM POLICE CHIEF 02/24/2021 12:36 PM POLICE CHIEF us Herberth Rodgers MD LAB BLOOD ORDERABLES Final Result Performing Organization Address [facility] Co de Phone Number [facility] [address] [place] [address] * (ABNORMAL) Differential, auto (02/24/2021 12:32 PM POLICE CHIEF) Neutrophil abs 3.4 1.7 - 6.5 K/cumm [facility] Imm gran abs 0.0 0.0 - 0.1 K/cumm [facility] Lymphocyte abs 2.3 0.8 - 3.3 K/cumm [facility] Monocyte abs 1.0(H) 0.2 - 0.8 K/cumm [facility] Eosinophil abs 0.2 0.0 - 0.5 K/cumm [facility] Basophil abs 0.0 0.0 - 0.1 K/cumm [facility] Neutrophil pct 49.9 % [facility] Comment: Interpretive Data Percent cell count reference ranges are not reported, since discordance with absolute values may lead to misinterpretation of CBC data. Current Interpretive Data was last revised on 2017. Imm gran pct 0.1 % [facility] Comment: Interpretive Data Percent cell count reference ranges are not reported, since discordance with absolute values may lead to misinterpretation of CBC data. Current Interpretive Data was last revised on 2017. Lymphocyte pct 32.9 % [facility] Comment: Interpretive Data Percent cell count reference ranges are not reported, since discordance with absolute values may lead to misinterpretation of CBC data. Current Interpretive Data was last revised on 2017. Monocyte pct 14.4 % [facility] Comment: Interpretive Data Percent cell count reference ranges are not reported, since discordance with absolute values may lead to misinterpretation of CBC data. Current Interpretive Data was last revised on 2017. Eosinophil pct 2.3 % [facility] Comment: Interpretive Data Percent cell count reference ranges are not reported, since discordance with absolute values may lead to misinterpretation of CBC data. Current Interpretive Data was last revised on 2017. Basophil pct 0.4 % [facility] Comment: Interpretive Data Percent cell count reference ranges are not reported, since discordance with absolute values may lead to misinterpretation of CBC data. Current Interpretive Data was last revised on 2017. Blood 02/24/2021 12:3 2 PM POLICE CHIEF 02/24/2021 12:36 PM POLICE CHIEF Herberth Rodgers MD LAB BLOOD ORDERABLES Final Result Performing Organization Address [facility] de Phone Number [facility] [address] [address] * Protime-INR (02/24/2021 12:32 PM POLICE CHIEF) Pathologist [facility] PT 13.0 12.0 - 14.6 sec [facility] INR 1.0 [facility] Comment: Ref Range High Interpretive data Oral anticoagulant therapeutic ranges: Venous thromboembolism prophylaxis or treatment: 2.0-3.0 CARDIOLOGY Standard range: 2.0-3.0 High-intensity range: 2.5-3.5 Refer to indication-specific guidelines for appropriate target ranges for prosthetic heart valve replacement. Current interpretive data was last revised on 2019. Blood 02/24/2021 12:3 2 PM POLICE CHIEF 02/24/2021 12:36 PM POLICE CHIEF Herberth Rodgers MD LAB BLOOD ORDERABLES Final Result Performing Organization Address [facility] de Phone Number [facility] [address] [address] * (ABNORMAL) CBC with auto differential (02/24/2021 12:32 PM POLICE CHIEF) Pathologist [facility] WBC 6.9 3.8 - 9.9 K/cumm [facility] Hgb 14.3 11.9 - 15.5 g/dL [facility] Hct 44.7 35.6 - 45.5 % [facility] Plt 159 150 - 400 K/cumm [facility] MPV 10.7 9.1 - 12.3 fL [facility] RBC 4.61 3.90 - 5.20 M/cumm [facility] MCV 97.0(H) 81.3 - 96.4 fL [facility] MCH 31.0 27.1 - 33.3 pg [facility] MCHC 32.0(L) 32.3 - 35.7 g/dL [facility] RDW CV 14.1 11.1 - 14.9 % [facility] RDW SD 49.7(H) 35.7 - 48.1 fL [facility] NRBC abs 0.00 0.00 - 0.01 K/cumm [facility] Blood 02/24/2021 12:3 2 PM POLICE CHIEF 02/24/2021 12:36 PM POLICE CHIEF Herberth Rodgers MD LAB BLOOD ORDERABLES Final Result Performing Organization Address City/State/[facility] Co de Phone Number [facility] [address] [place] [address] * (ABNORMAL) Basic metabolic panel (02/24/2021 12:32 PM POLICE CHIEF) Sodium 138 135 - 145 mmol/L [facility] Potassium, pl 4.3 3.3 - 4.9 mmol/L [facility] Chloride 98 97 - 110 mmol/L [facility] CO2 33(H) 22 - 32 mmol/L [facility] Anion gap 7 2 - 15 mmol/L [facility] BUN 32(H) 8 - 25 mg/dL [facility] Creatinine 2.40(H) 0.60 - 1.10 mg/dL [facility] Glucose 84 70 - 199 mg/dL [facility] Comment: Interpretive Data Fasting glucose [...] 2017. Calcium 9.6 8.5 - 10.3 mg/dL [facility] Blood 02/24/2021 12:3 2 PM POLICE CHIEF 02/24/2021 12:36 PM POLICE CHIEF Herberth Rodgers MD LAB BLOOD ORDERABLES Final Result Performing Organization Address City/[facility] Co de Phone Number [facility] [address] [facility] [place] [address] * aPTT (02/24/2021 12:32 PM POLICE CHIEF) aPTT 35 22 - 37 sec [facility] Comment: Interpretive data aPTT test has not been evaluated for monitoring heparin therapy. The anti-Xa is the preferred test. Current interpretive data was last revised on 2019. Blood 02/24/2021 12:3 2 PM POLICE CHIEF 02/24/2021 12:36 PM POLICE CHIEF us Herberth Rodgers MD LAB BLOOD ORDERABLES Final Result Performing Organization Address [facility] de Phone Number SIMON [address] [place] [address] documented in this encounter Visit Diagnoses Diagnosis [...] Pre-Emptive AnalgesiaIndications:Pre-Emptive Analgesia Given 02/24/2021 12:45 PM POLICE CHIEF 975 mg albuterol HFA (PROVENTIL HFA,VENTOLIN HFA,PROAIR HFA) 90 mcg/actuation inhaler 2 puff 2 puff, inhalation, Every 4 hours PRN (respiratory technician), wheezing, Starting on Sun02/25/21 at 1300 budesonide-formoteroL (SYMBICORT) 160-4.5 mcg/actuation inhaler 2 puff 2 puff, inhalation, 2 times daily (respiratory technician), First dose on Sun02/25/21 at 2000, Rinse mouth with water after use. Do not swallow., I /authorizing provider attest that the patient meets the approved [facility] Use Criteria: Yes Given 02/27/2021 7:28 AM POLICE CHIEF 2 puffs Given 02/26/2021 9:14 PM POLICE CHIEF 2 puffs Given 02/26/2021 5:54 AM POLICE CHIEF 2 puffs calcitRIOL (ROCALTROL) capsule 0.25 mcg 0.25 mcg, oral, 3 times weekly (Once per day on Sun), First dose on Sun02/25/21 at 0900 Given 02/25/2021 9:18 AM POLICE CHIEF 0.25 mcg cholecalciferol (VITAMIN D-3) tablet 2,000 Units 2,000 Units, oral, Daily, First dose on Sun02/25/21 at 0900 Given 02/27/2021 8:29 AM POLICE CHIEF 2,000 Units Given 02/26/2021 10:03 AM POLICE CHIEF 2,000 Units Given 02/25/2021 9:18 AM POLICE CHIEF 2,[address] (CYMBALTA) extended release capsule 60 mg 60 mg, oral, Nightly, First dose on Bernarda 02/24/21 at 2200, Capsule may be opened and contents mixed with applesauce or apple juice ONLY. Do not crush, chew, cut, dissolve, open or otherwise manipulate tablet/capsule. Given 02/26/2021 9:04 PM POLICE CHIEF 60 mg Given 02/25/2021 8:15 PM POLICE CHIEF 60 mg Given 02/24/2021 11:45 PM POLICE CHIEF 60 mg enoxaparin (LOVENOX) syringe 30 mg 30 mg, subcutaneous, Daily (for enoxaparin), First dose on 02/26/21 at 2100, Indications: Deep Vein Thrombosis PreventionIndications:Deep Vein Thrombosis Prevention Given 02/26/2021 9:04 PM POLICE CHIEF 30 mg Right Upper Arm famotidine (PEPCID) tablet 20 mg 20 mg, oral, Once, On Bernarda 02/24/21 at 1300, For 1 dose, Pre-Op, Indications: gastroesophageal reflux diseaseIndications:gastroesophagea l reflux disease Given 02/24/2021 12:45 PM POLICE CHIEF 20 mg furosemide (LASIX) 10 mg/mL injection 40 mg 40 mg, intravenous, Once, On 02/26/21 at 1400, For 1 dose, For IV push: administer doses < 160 mg at a rate of 20 -40 mg/min. Doses >/= 160 mg should be administered no faster than 4 mg/min. Room temperature only Given 02/26/2021 3:01 PM POLICE CHIEF 40 mg furosemide (LASIX) 10 mg/mL injection 40 mg 40 mg, intravenous, Once, On 02/27/21 at 1430, For 1 dose, For IV push: administer doses < 160 mg at a rate of 20 -40 mg/min. Doses >/= 160 mg should be administered no faster than 4 mg/min. Room temperature only Given 02/27/2021 2:38 PM POLICE CHIEF 40 mg furosemide (LASIX) tablet 40 mg 40 mg, oral, Nightly, First dose on Bernarda 02/24/21 at 2200 Given 02/26/2021 9:03 PM POLICE CHIEF 40 mg Given 02/25/2021 8:15 PM POLICE CHIEF 40 mg Given 02/25/2021 12:11 AM POLICE CHIEF 40 mg HYDROcodone-acetaminophen (NORCO) 5-325 mg per tablet 1 tablet 1 tablet, oral, Every 4 hours PRN, 1st line for pain, Starting on Bernarda 02/24/21 at 1952, Indications: PainIndications:Pain Given 02/27/2021 7:49 PM POLICE CHIEF 1 tablet Given 02/27/2021 3:32 PM POLICE CHIEF 1 tablet Given 02/27/2021 10:14 AM POLICE CHIEF 1 tablet ipratropium-albuteroL (DUO-NEB) 0.5-2.5 mg/3 mL nebulizer solution 3 mL 3 mL, nebulization, Every 6 hours while awake (respiratory technician), First dose (after last modification) on Sun02/25/21 at 1500, Indications: Chronic Obstructive Pulmonary Disease with BronchospasmsIndications:Chronic Obstructive Pulmonary Disease with Bronchospasms Given 02/26/2021 5:53 AM POLICE CHIEF 3 mL Given 02/25/2021 9:41 PM POLICE CHIEF 3 mL Given 02/25/2021 2:51 PM POLICE CHIEF 3 mL ipratropium-albuteroL (DUO-NEB) 0.5-2.5 mg/3 mL nebulizer solution 3 mL 3 mL, nebulization, 2 times daily (respiratory technician), First dose (after last modification) on Sun02/26/21 at 2000, Indications: Chronic Obstructive Pulmonary Disease with BronchospasmsIndications:Chronic Obstructive Pulmonary Disease with Bronchospasms Given 02/27/2021 7:28 AM POLICE CHIEF 3 mL Given 02/26/2021 9:13 PM POLICE CHIEF 3 mL levothyroxine (SYNTHROID) tablet 200 mcg 200 mcg, oral, Daily (early AM), First dose on Sun02/25/21 at 0600, Administer on an empty stomach, preferably 30 minutes before breakfast. Take 4 hours apart from antacids, iron and calcium products. Given 02/27/2021 5:58 AM POLICE CHIEF 200 mcg Given 02/26/2021 5:26 AM POLICE CHIEF 200 mcg Given 02/25/2021 5:09 AM POLICE CHIEF 200 mcg lidocaine (XYLOCAINE) 10 mg/mL (1 %) injection 2-10 mg 2-10 mg (0.2-1 mL), other, Once as needed, pain with IV placement, Starting on Sun02/24/21 at 1215, For 1 dose, Administer volume needed to infiltrate IV site. multivit mwupxfqa-fvzz-FW-calcium (THERA-M) tablet 1 tablet 1 tablet, oral, Daily, First dose on Sun02/25/21 at 0900 Given 02/27/2021 8:30 AM POLICE CHIEF 1 tablet Given 02/26/2021 10:03 AM POLICE CHIEF 1 tablet Given 02/25/2021 9:17 AM POLICE CHIEF 1 tablet pregabalin (LYRICA) capsule 200 mg 200 mg, oral, 2 times daily, First dose on Sun02/24/21 at 2200 Given 02/27/2021 8:30 AM POLICE CHIEF 200 mg Given 02/26/2021 9:03 PM POLICE CHIEF 200 mg Given 02/26/2021 10:03 AM POLICE CHIEF 200 mg primidone (MYSOLINE) tablet 50 mg 50 mg, oral, Nightly, First dose on Sun02/24/21 at 2200 Given 02/26/2021 9:03 PM POLICE CHIEF 50 mg Given 02/25/2021 8:15 PM POLICE CHIEF 50 mg Given 02/24/2021 11:45 PM POLICE CHIEF 50 mg prochlorperazine (COMPAZINE) injection 5 mg [...] than 55. Given 02/26/2021 9:0 4 PM POLICE CHIEF 60 mg Given 02/25/2021 8:15 PM POLICE CHIEF 60 mg Given 02/25/2021 9:17 AM POLICE CHIEF 60 mg ramelteon (ROZEREM) tablet 8 mg 8 mg, oral, Nightly PRN, sleep, Starting on Sun02/24/21 at 1953, Indications: Sleep-Onset InsomniaIndications:Sleep-Onset Insomnia Given 02/26/2021 9:04 PM POLICE CHIEF 8 m g rosuvastatin (CRESTOR) tablet 10 mg 10 mg, oral, Nightly, First dose on Bernarda 02/24/21 at 2200 Given 02/26/2021 9:03 PM POLICE CHIEF 10 mg Given 02/25/2021 8:15 PM POLICE CHIEF 10 mg Given 02/24/2021 11:45 PM POLICE CHIEF 10 mg senna-docusate (PERICOLACE) 8.6-50 mg per tablet 1 tablet 1 tablet, oral, 2 times daily PRN, constipation, Starting on Bernarda 02/24/21 at 1953, Indications: constipationIndications:constipation Given 02/25/2021 4:37 PM POLICE CHIEF 1 table t sodium chloride 0.9% flush [...] type and size. Given 02/27/2021 1:53 PM POLICE CHIEF 10 mL Given 02/26/2021 3:11 PM POLICE CHIEF 10 mL Given 02/25/2021 8:22 PM POLICE CHIEF 10 mL sodium chloride 0.9% flush 0.5-20 mL 0.5-20 mL, intra-catheter, As needed, line care, Starting on Bernarda 02/24/21 at 1953, Flush volume based on line type and size. Flush before and after each use. sodium chloride 0.9% infusion 30 mL/hr, intravenous, Continuous, Starting on Bernarda 02/24/21 at 1300, On hold since Sun02/25/2021 at 0855 until manually unheld New Bag 02/24/2021 11:48 PM POLICE CHIEF 30 mL/hr 30 mL/hr Rate/Dose Verify 02/24/2021 3:19 PM POLICE CHIEF 30 mL/h r New Bag 02/24/2021 12:36 PM POLICE CHIEF 30 mL/hr 30 mL/hr tc-99m macroaggregated albumin (MAA) injection 6 millicurie 6 millicurie, intravenous, Once in imaging, radiopharmaceutical, Starting on Sun02/25/21 at 1336, For 1 dose, Indications: Diagnostic RadiographyIndications:Diagnostic Radiography Given 02/25/2021 1:36 PM POLICE CHIEF 6 millicuries documented in this encounter Discontinued [...] Recently Administered Medications Times are shown in POLICE CHIEF. Scheduled Medication Order 02/25/2021 02/26/2021 02/27/2021 budesonide-formoteroL (SYMBICORT) 160-4.5 mcg/actuation inhaler 2 puff 2 puff, inhalation, 2 times daily (respiratory technician), First dose on Sun02/25/21 at 2000, Rinse mouth with water after use. Do not swallow., I /authorizing provider attest that the patient meets the approved [facility] Use Criteria: Yes 2153 (Given - Provider: [...] mL, nebulization, Every 6 hours while awake (respiratory technician), First dose (after last modification) on Sun02/25/21 at 1500, Indications: Chronic Obstructive Pulmonary Disease with Bronchospasms 145 (Given - Provider: Carolina Gamboa, TEXTILE EXAMINER)214 (Given - Provider: Blair Johns, SUMI) 0553 (Given - Provider: Ashtyn Marcus, SUMI)0603 (Not Given - Provider: Ashtyn Marcus RRT - Reason: Other) ipratropium-albuteroL (DUO-NEB) 0.5-2.5 mg/3 mL nebulizer solution 3 mL 3 mL, nebulization, 2 times daily (respiratory technician), First dose (after last modification) on 02/26/21 at 2000, Indications: Chronic Obstructive Pulmonary Disease with Bronchospasms 2112 (Given - Provider: Ashtyn Marcus, GENERAL WORKER) 727 (Given - Provider: Carmen Diallo, GENERAL WORKER) levothyroxine (SYNTHROID) tablet 200 mcg 200 mcg, oral, Daily (early AM), First dose on Sun02/25/21 at 0600, Administer on an empty stomach, preferably 30 minutes before breakfast. Take 4 hours apart from antacids, iron and calcium products. 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
[2024-03-07 20:18] VITALS: BP 149/62; PULSE 56; RESP 18; TEMP 36.8; O2SAT 95
[2024-03-07 21:27] VITALS: PULSE 60
[2024-03-08] VITALS (7 sets, daily range): BP systolic 118–153; BP diastolic 62–74; PULSE 54–60; RESP 18–20; TEMP 36.3–36.6; O2SAT 92–98
[2024-03-08 05:41] LABS: Basophils Percent Auto 0.2 % (0.2-1.2); Eosinophils Percent Auto 0.9 % (0-4.4); Hematocrit 45.6 % (37.0-47.0); Hemoglobin 14.6 g/dL (12.0-15.0); Immature Granulocyte Absolute 0.01 K/mm3 (0.00-0.031); Immature Granulocyte Percent A 0.2 % (0-0.5); Immature Platelet Fraction Pct 5.9 % (0.9-11.2); Lymphocytes Absolute Auto 2.03 K/mm3 (0.9-3.2); Lymphocytes Percent Auto 44.9 % (18.3-44.2); Mean Corpuscular Hemoglobin 31.1 pg (26-34); Mean Platelet Volume 10.9 fl (7.4-10.4); Monocytes Absolute Auto 0.7 K/mm3 (0.1-0.6); Monocytes Percent Auto 15.3 % (2.6-8.5); Neutrophils Absolute Auto 1.7 K/mm3 (1.3-6.7); Neutrophils Percent Auto 38.5 % (45.5-73.1); Platelet Count Result 140 k/mm3 (150-375); Red Cell Distribution Width 13.6 % (11.5-14.5); White Blood Count 4.5 K/mm3 (4.5-10.0)
[2024-03-08] MEDS: LEVOTHYROXINE SODIUM 100 MCG TABLET 200 MCG PO (05:42)
[2024-03-08] MEDS: HYDROcodone/acetaminophen (*CRX) 5-325 MG TABLET 1 TAB PO ×4 (05:46→18:44)
[2024-03-08 06:02] LABS: Alanine Aminotransferase 47 U/L (6-35); Albumin Level 3.5 g/dL (3.5-5.1); Alkaline Phosphatase 77 U/L (38-126); Anion Gap -1 mmol/L (4-12); Aspartate Amino Transferase 43 U/L (14-36); Bilirubin,Total 0.5 mg/dL (0.2-1.3); Blood Urea Nitrogen 43 mg/dL (7-17); Calcium 9.9 mg/dL (8.4-10.2); Carbon Dioxide 36 mmol/L (22-30); Chloride 103 mmol/L (98-107); Estimated CRCL calculation 34 ml/min; Estimated Glomerular Filt Rate 27; Glucose 84 mg/dL (65-110); Potassium 4.3 mmol/L (3.4-5.0); Sodium 138 mmol/L (137-145)
[2024-03-08] MEDS: ENOXAPARIN 40 MG/0.4 ML SYRINGE SUB-Q (08:55)
[2024-03-08] MEDS: FUROSEMIDE 40 MG TABLET PO (08:58)
[2024-03-08] MEDS: CALCIUM CARBONATE (TUMS) 500 MG (200 MG ELEMENTAL) PO (08:58)
[2024-03-08] MEDS: THERAPEUTIC MULTIVITAMINS/MINERALS TAB (*BKC) 1 TABLET PO (08:59)
[2024-03-08] MEDS: SPIRONOLACTONE 50 MG TABLET PO (08:59)
[2024-03-08] MEDS: CHOLECALCIFEROL 1,000 UNITS TABLET 2000 UNITS PO (08:59)
[2024-03-08] MEDS: PROPRANOLOL HCL 60 MG CAPSULE CR PO ×2 (08:59→21:04)
[2024-03-08] MEDS: ROSUVASTATIN 20 MG TABLET PO (08:59)
[2024-03-08] MEDS: PRIMIDONE 50 MG TABLET PO ×2 (08:59→17:38)
[2024-03-08] MEDS: dexAMETHasone 2 MG TABLET 6 MG PO (09:00)
[2024-03-08] MEDS: PREGABALIN (*CRX) 50 MG CAPSULE 200 MG PO ×2 (09:00→17:37)
[2024-03-08] MEDS: LORATADINE 10 MG TABLET PO (09:00)
--- NOTE | 2024-03-08 11:09 | P.PNIM_ITS ---
Progress Note: A&P Assessment and Plan (1) Generalized weakness: Code(s): R53.1 - Weakness Status: Acute Assessment and Plan: Limited mobility at baseline due to bone on bone arthritis in her right knee and according to her daughter she really only leaves her bedroom to go to the bathroom and back. The last several days she has been feeling increasingly weak from baseline and she was so weak prior to admission that she could not even get herself up off of the toilet. - Viral panel: Covid positive - UA unremarkable - Chest XR: Mild interstitial edema versus senescent/interstitial change. - PT/OT PT/OT was recommending SNF, however patient was against placement- but agreeable now awaiting placement continue workign with PT/OT (2) COVID-19: Code(s): U07.1 - COVID-19 Status: Acute Assessment and Plan: Reports weakness, generalized malaise, body aches, headache, sore throat, and cough which is occasionally productive of yellow sputum. - Viral panel: Covid positive - Chest XR: Mild interstitial edema versus senescent/interstitial change. - Pt is a candidate for Remdesivir and Dexamethasone, continue treatment according to suggested guidelines. Remdesivir 200 mg IV x1, then 100 mg IV x4 days, dexamethasone 6 mg IV daily x 10 days, or until discharge - Bronchodilators - Currently on her baseline oxygen supplementation of 2L NC. Oxygen via NC; wean as tolerated. Keep spO2 greater than 91% - Place in COVID19 isolation precautions, cardiac monitoring, and continuous pulse ox - Monitor serum electrolytes, CRP, Lactic acid, troponin, CBC, WBC, temperature curve and follow cultures IS ordered- needs a lot of encouragement to use (3) Headache: Code(s): R51.9 - Headache, unspecified Status: Acute Assessment and Plan: Patient endorsing a headache that worsens with neck movement. She states that she has had falls in the past, unable to state when her most recent fall was. Not on any anticoagulation. Neuro exam negative. - Head CT: Normal aging brain. No acute intracranial process. - C spine CT: Stable mild cervical spondylosis. Anterior fusion procedure from C4-C7. - analgesics (4) Chronic respiratory failure with hypoxia, on home oxygen therapy: Code(s): J96.11 - Chronic respiratory failure with hypoxia; Z99.81 - Dependence on supplemental oxygen Status: Acute Assessment and Plan: Remains on baseline 2 L NC. (5) Chronic obstructive pulmonary disease: Code(s): J44.9 - Chronic obstructive pulmonary disease, unspecified Status: Acute Assessment and Plan: Chronic, does not appear in acute exacerbation. - Monitor (6) Chronic kidney disease, stage 4 (severe): Code(s): N18.4 - Chronic kidney disease, stage 4 (severe) Status: Acute Assessment and Plan: Follows with nephrology, Dr. Penaloza. Last seen 12/17/23. AV shunt placement was attempted for possible dialysis, however this failed. - BUN/Cr 39/2.3 on am labs - Continue to monitor renal function - Avoid nephrotoxic medications - Renally dose medications (7) Hypothyroidism, unspecified: Qualifiers: Hypothyroidism type: unspecified Qualified Code(s): E03.9 - Hypothyroidism, unspecified Code(s): E03.9 - Hypothyroidism, unspecified Status: Acute Assessment and Plan: Chronic, continue home medications - Synthroid 200 mg daily, dose last adjusted on 02/26 by PCP (8) Hypertension: Code(s): I10 - Essential (primary) hypertension Status: Acute Assessment and Plan: Chronic, continue home medications - propranolol 60 mg daily - lasix 40 mg daily - spironolactone 50 mg daily - monitor reviewed- stable (9) Hyperlipidemia, unspecified: Qualifiers: Hyperlipidemia type: mixed hyperlipidemia Qualified Code(s): E78.2 - Mixed hyperlipidemia Code(s): E78.5 - Hyperlipidemia, unspecified Status: Acute Assessment and Plan: Chronic, continue home medications - rosuvastatin 20 mg daily Time Spent With Patient Time with patient: Greater than 35 minutes Subjective Date/time seen: 03/08/24 11:09 Interval history: 73-year-old female with chronic hypoxic respiratory failure on home oxygen, chronic obstructive pulmonary disease, chronic kidney disease stage 4, hypertension, hyperlipidemia, arthritis, hypothyroidism, and other comorbidities who presented to the emergency department via EMS from home for evaluation of weakness. Patient is pleasant working with PT in getting up to her chair. She states that she feels slightly short of breath and has a worsening cough, but denies chest pain, palpitations, nausea/vomiting and abdominal pain. She continues to endorse pain throughout. Discussed with her that pain management outpatient would be beneficial for her chronic symptoms. PT/OT was originally recommending SNF, however patient is against placement. She states that she will not go SNF but is okay with home health if necessary at time of discharge. Care coordination is following. assuming care. Pt is back to her baseline but doesnot want to go home as her daughter is concerned that might get covid as well plus pt is agreeable now to try rehab for strength. care coordination is working to arrange that. 03/06- awaiting placement -care coordination following. supportive care 03/07- seen and examined. Tired today but overall feeling ok. Still waiting for insurance auth for rehab. and daughter both have covid now-and in the hospital now. 03/08- stable overnight. up in [facility] chair- still cough, remains on oxygen Review of Systems Review of Systems: 12 systems were reviewed and are negativ e except for as per HPI. All systems reviewed & are unremarkable except as noted in HPI and below Exam Narrative: General: female in no acute respiratory distress who is nontoxic appearing, lying semi recumbent in bed. HEENT: Normocephalic. Atraumatic. Extraocular movement intact. Sclera clear and anicteric. No facial asymmetry. Chest: Lungs are diminished to auscultation bilaterally with slight wheezing. No crackles. CV: Heart was regular rate and rhythm. S1-S2. No murmurs, gallops, or rubs. Abd: Abdomen was soft. Nontender. Nondistended. Positive bowel sounds. No organomegaly or masses. Ext: No clubbing, cyanosis, or edema. 2+ DP pulses bilaterally. Neuro: Patient is alert and oriented x4. Cranial nerves 2-12 are intact. Speech is clear. Const: General: comfortable Objective Data Vital Signs Vital Signs: Vital Signs - 24 hr 03/07/24 14:00 03/07/24 20:18 03/07/24 21:27 Temperature 97.4 F L 98.3 F Pulse Rate 62 56 L 60 Respiratory Rate 16 18 Blood Pressure 139/55 L 149/62 H Pulse Oximetry 91 95 Oxygen Delivery Oxygen Flow Rate Fraction of Inspired Oxygen 03/08/24 04:28 03/08/24 08:21 03/08/24 08:59 Temperature 97.7 F Pulse Rate 54 L 60 Respiratory Rate 20 Blood Pressure 118/62 Pulse Oximetry 92 94 Oxygen Delivery Nasal Cannula Oxygen Flow Rate 2 Fraction of Inspired Oxygen 28 Intake/Output Intake/Output: Intake & Output 03/05/24 03/06/24 03/07/24 03/08/24 23:59 23:59 23:59 23:59 Intake Total 880 1670 1148 480 Output Total 650 1950 375 200 Balance 230 -280 773 280 Meds/Results Medications: Active Medications Generic Name Dose Route Start Last Admin Trade Name Freq PRN Reason Stop Dose Admin Acetaminophen 650 mg 03/02/24 18:39 03/02/24 19:04 Acetaminophen 325 Mg Tablet PO 650 mg Q4H PRN Administration Mild Pain (1-3) or Fever Hydrocodone Bitart/Acetaminophen 1 tab 03/02/24 18:39 03/08/24 09:48 Hydrocodone/Acetaminophen (*Crx) 5-325 Mg Tablet PO 1 tab Q4H PRN Administration Pain Rated 4-6 Benzocaine 1 lozenge 03/04/24 11:47 03/04/24 12:16 Benzocaine/Menthol (*Bkc) 18 Ea Lozenge PO 1 lozenge PRN PRN Administration Sore Throat Calcitriol 0.25 mcg 03/02/24 20:00 Calcitriol 0.25 Mcg Capsule PO MoWeFr PRN AFTER DIALYSIS Calcium Carbonate 200 mg 03/03/24 09:00 03/08/24 08:58 Calcium Carbonate (Tums) 500 Mg (200 Mg Elemental) PO 200 mg DAILY QUINTON Administration Dexamethasone 6 mg 03/03/24 08:00 03/08/24 09:00 Dexamethasone 2 Mg Tablet PO 03/12/24 08:01 6 mg DAILY@0800 QUINTON Administration Enoxaparin Sodium 40 mg 03/03/24 09:00 03/08/24 08:55 Enoxaparin 40 Mg/0.4 Ml Syringe SUB-Q 40 mg DAILY QUINTON Administration Furosemide 40 mg 03/03/24 09:00 03/08/24 08:58 Furosemide 40 Mg Tablet PO 40 mg QAM QUINTON Administration Guaifenesin/Dextromethorphan 5 ml 03/04/24 14:11 Guaifenesin/Dextromethorphan 10 Ml Udc PO Q4H PRN Cough Levothyroxine Sodium 200 mcg 03/03/24 06:30 03/08/24 05:42 Levothyroxine Sodium 100 Mcg Tablet PO 200 mcg DAILY@0630 QUINTON Administration Loratadine 10 mg 03/03/24 09:00 03/08/24 09:00 Loratadine 10 Mg Tablet PO 10 mg QAM QUINTON Administration Multivitamins/Calcium 1 tablet 03/03/24 09:00 03/08/24 08:59 Therapeutic Multivitamins/Minerals Tab (*Bkc) PO 1 tablet DAILY QUINTON Administration Pregabalin 200 mg 03/03/24 09:00 03/08/24 09:00 Pregabalin (*Crx) 50 Mg Capsule PO 200 mg BID QUINTON Administration Primidone 50 mg 03/03/24 09:00 03/08/24 08:59 Primidone 50 Mg Tablet PO 50 mg BID QUINTON Administration Propranolol HCl 60 mg 03/02/24 21:35 03/08/24 08:59 Propranolol Hcl 60 Mg Capsule Cr PO 60 mg Q12HR QUINTON Administration Rosuvastatin Calcium 20 mg 03/03/24 09:00 03/08/24 08:59 Rosuvastatin 20 Mg Tablet PO 20 mg DAILY QUINTON Administration Spironolactone 50 mg 03/03/24 09:00 03/08/24 08:59 Spironolactone 50 Mg Tablet PO 50 mg DAILY QUINTON Administration Vitamin D 2,000 units 03/03/24 09:00 03/08/24 08:59 Cholecalciferol 1,000 Units Tablet PO 2,000 units DAILY QUINTON Administration Radiology Results: ITS Impressions Chest X-Ray 03/02/24 17:44 IMPRESSION: Mild interstitial edema versus senescent/interstitial change. Head CT 03/03/24 15:36 IMPRESSION: 1. Normal aging brain. No acute intracranial process. Cervical Spine CT 03/03/24 16:53 IMPRESSION: 1. Stable mild cervical spondylosis. 2. Anterior fusion procedure from C4 to C7. Labs Labs: Laboratory Results - last 24 hr 03/08/24 05:30 WBC 4.5 RBC 4.70 Hgb 14.6 Hct 45.6 MCV 97.0 MCH 31.1 MCHC 32.0 RDW 13.6 Plt Count 140 L MPV 10.9 H Immature Gran % (Auto) 0.2 Neut % (Auto) 38.5 L Lymph % (Auto) 44.9 H Wilkin % (Auto) 15.3 H Eos % (Auto) 0.9 Baso % (Auto) 0.2 Lymph # (Auto) 2.03 Wilkin # (Auto) 0.7 H Eos # (Auto) 0.0 Baso # (Auto) 0.0 Abs Immat Gran (auto) 0.01 Absolute Neuts (auto) 1.7 Absolute Nucleated RBC 0.000 Nucleated RBC % 0.0 % Immature Plt Fraction 5.9 Sodium 138 Potassium 4.3 Chloride 103 Carbon Dioxide 36 H Anion Gap -1 L BUN 43 H Creatinine 1.80 H Estim Creat Clear Calc 34 Estimated GFR 27 L Glucose 84 Calcium 9.9 Total Bilirubin 0.5 AST 43 H ALT 47 H Alkaline Phosphatase 77 Total Protein 6.0 L Albumin 3.5 Quality VTE Prophylaxis VTE prophylaxis: pharmacologic ordered
[2024-03-09] VITALS (7 sets, daily range): BP systolic 123–128; BP diastolic 59–63; PULSE 55–62; RESP 16–17; TEMP 36.5–36.8; O2SAT 93–97
[2024-03-09] MEDS: HYDROcodone/acetaminophen (*CRX) 5-325 MG TABLET 1 TAB PO ×4 (01:14→21:03)
[2024-03-09 05:58] LABS: Basophils Percent Auto 0.3 % (0.2-1.2); Eosinophils Absolute Auto 0.1 K/mm3 (0-0.3); Hematocrit 45.4 % (37.0-47.0); Hemoglobin 14.6 g/dL (12.0-15.0); Immature Granulocyte Absolute 0.01 K/mm3 (0.00-0.031); Immature Granulocyte Percent A 0.2 % (0-0.5); Lymphocytes Absolute Auto 2.43 K/mm3 (0.9-3.2); Lymphocytes Percent Auto 40.7 % (18.3-44.2); Mean Corpuscular HGB Conc 32.2 g/dl (32-36); Mean Corpuscular Hemoglobin 31.1 pg (26-34); Mean Corpuscular Volume 96.6 fl (80-100); Mean Platelet Volume 11.4 fl (7.4-10.4); Monocytes Absolute Auto 0.9 K/mm3 (0.1-0.6); Monocytes Percent Auto 15.2 % (2.6-8.5); Neutrophils Absolute Auto 2.5 K/mm3 (1.3-6.7); Neutrophils Percent Auto 42.6 % (45.5-73.1); Platelet Count Result 178 k/mm3 (150-375); Red Cell Distribution Width 13.4 % (11.5-14.5)
[2024-03-09] MEDS: LEVOTHYROXINE SODIUM 100 MCG TABLET 200 MCG PO (06:11)
[2024-03-09 06:12] LABS: Alanine Aminotransferase 49 U/L (6-35); Albumin Level 3.4 g/dL (3.5-5.1); Alkaline Phosphatase 76 U/L (38-126); Anion Gap 2 mmol/L (4-12); Aspartate Amino Transferase 48 U/L (14-36); Bilirubin,Total 0.7 mg/dL (0.2-1.3); Blood Urea Nitrogen 40 mg/dL (7-17); Carbon Dioxide 35 mmol/L (22-30); Chloride 100 mmol/L (98-107); Estimated CRCL calculation 35 ml/min; Estimated Glomerular Filt Rate 29; Glucose 76 mg/dL (65-110); Potassium 4.2 mmol/L (3.4-5.0); Sodium 137 mmol/L (137-145)
[2024-03-09] MEDS: CALCIUM CARBONATE (TUMS) 500 MG (200 MG ELEMENTAL) PO (09:06)
[2024-03-09] MEDS: dexAMETHasone 2 MG TABLET 6 MG PO (09:06)
[2024-03-09] MEDS: CHOLECALCIFEROL 1,000 UNITS TABLET 2000 UNITS PO (09:06)
[2024-03-09] MEDS: PROPRANOLOL HCL 60 MG CAPSULE CR PO ×2 (09:07→20:17)
[2024-03-09] MEDS: PREGABALIN (*CRX) 50 MG CAPSULE 200 MG PO ×2 (09:07→16:56)
[2024-03-09] MEDS: THERAPEUTIC MULTIVITAMINS/MINERALS TAB (*BKC) 1 TABLET PO (09:07)
[2024-03-09] MEDS: ENOXAPARIN 40 MG/0.4 ML SYRINGE SUB-Q (09:07)
[2024-03-09] MEDS: PRIMIDONE 50 MG TABLET PO ×2 (09:07→16:56)
[2024-03-09] MEDS: FUROSEMIDE 40 MG TABLET PO (09:07)
[2024-03-09] MEDS: LORATADINE 10 MG TABLET PO (09:07)
[2024-03-09] MEDS: SPIRONOLACTONE 50 MG TABLET PO (09:08)
[2024-03-09] MEDS: ROSUVASTATIN 20 MG TABLET PO (09:08)
--- NOTE | 2024-03-09 10:05 | P.PNIM_ITS ---
Progress Note: A&P Assessment and Plan (1) Generalized weakness: Code(s): R53.1 - Weakness Status: Acute Assessment and Plan: Limited mobility at baseline due to bone on bone arthritis in her right knee and according to her daughter she really only leaves her bedroom to go to the bathroom and back. The last several days she has been feeling increasingly weak from baseline and she was so weak prior to admission that she could not even get herself up off of the toilet. - Viral panel: Covid positive - UA unremarkable - Chest XR: Mild interstitial edema versus senescent/interstitial change. - PT/OT PT/OT was recommending SNF, however patient was against placement- but agreeable now awaiting placement continue workign with PT/OT (2) COVID-19: Code(s): U07.1 - COVID-19 Status: Acute Assessment and Plan: Reports weakness, generalized malaise, body aches, headache, sore throat, and cough which is occasionally productive of yellow sputum. - Viral panel: Covid positive - Chest XR: Mild interstitial edema versus senescent/interstitial change. - Pt is a candidate for Remdesivir and Dexamethasone, continue treatment according to suggested guidelines. Remdesivir 200 mg IV x1, then 100 mg IV x4 days, dexamethasone 6 mg IV daily x 10 days, or until discharge - Bronchodilators - Currently on her baseline oxygen supplementation of 2L NC. Oxygen via NC; wean as tolerated. Keep spO2 greater than 91% - Place in COVID19 isolation precautions, cardiac monitoring, and continuous pulse ox - Monitor serum electrolytes, CRP, Lactic acid, troponin, CBC, WBC, temperature curve and follow cultures IS ordered- needs a lot of encouragement to use (3) Headache: Code(s): R51.9 - Headache, unspecified Status: Acute Assessment and Plan: Patient endorsing a headache that worsens with neck movement. She states that she has had falls in the past, unable to state when her most recent fall was. Not on any anticoagulation. Neuro exam negative. - Head CT: Normal aging brain. No acute intracranial process. - C spine CT: Stable mild cervical spondylosis. Anterior fusion procedure from C4-C7. - analgesics (4) Chronic respiratory failure with hypoxia, on home oxygen therapy: Code(s): J96.11 - Chronic respiratory failure with hypoxia; Z99.81 - Dependence on supplemental oxygen Status: Acute Assessment and Plan: Remains on baseline 2 L NC. remains stable (5) Chronic obstructive pulmonary disease: Code(s): J44.9 - Chronic obstructive pulmonary disease, unspecified Status: Acute Assessment and Plan: Chronic, does not appear in acute exacerbation. - Monitor (6) Chronic kidney disease, stage 4 (severe): Code(s): N18.4 - Chronic kidney disease, stage 4 (severe) Status: Acute Assessment and Plan: Follows with nephrology, Dr. Penaloza. Last seen 12/17/23. AV shunt placement was attempted for possible dialysis, however this failed. - BUN/Cr 39/2.3 on am labs - Continue to monitor renal function - Avoid nephrotoxic medications - Renally dose medications (7) Hypothyroidism, unspecified: Qualifiers: Hypothyroidism type: unspecified Qualified Code(s): E03.9 - Hypothyroidism, unspecified Code(s): E03.9 - Hypothyroidism, unspecified Status: Acute Assessment and Plan: Chronic, continue home medications - Synthroid 200 mg daily, dose last adjusted on 02/26 by PCP (8) Hypertension: Code(s): I10 - Essential (primary) hypertension Status: Acute Assessment and Plan: Chronic, continue home medications - propranolol 60 mg daily - lasix 40 mg daily - spironolactone 50 mg daily - monitor reviewed- stable (9) Hyperlipidemia, unspecified: Qualifiers: Hyperlipidemia type: mixed hyperlipidemia Qualified Code(s): E78.2 - Mixed hyperlipidemia Code(s): E78.5 - Hyperlipidemia, unspecified Status: Acute Assessment and Plan: Chronic, continue home medications - rosuvastatin 20 mg daily Time Spent With Patient Time with patient: Greater than 35 minutes Subjective Date/time seen: 03/09/24 10:05 Interval history: 73-year-old female with chronic hypoxic respiratory failure on home oxygen, chronic obstructive pulmonary disease, chronic kidney disease stage 4, hypertension, hyperlipidemia, arthritis, hypothyroidism, and other comorbidities who presented to the emergency department via EMS from home for evaluation of weakness. Patient is pleasant working with PT in getting up to her chair. She states that she feels slightly short of breath and has a worsening cough, but denies chest pain, palpitations, nausea/vomiting and abdominal pain. She continues to endorse pain throughout. Discussed with her that pain management outpatient would be beneficial for her chronic symptoms. PT/OT was originally recommending SNF, however patient is against placement. She states that she will not go SNF but is okay with home health if necessary at time of discharge. Care coordination is fo llowing. assuming care. Pt is back to her baseline but doesnot want to go home as her daughter is concerned that might get covid as well plus pt is agreeable now to try rehab for strength. care coordination is working to arrange that. 03/06- awaiting placement -care coordination following. supportive care 03/07- seen and examined. Tired today but overall feeling ok. Still waiting for insurance auth for rehab. and daughter both have covid now-and in the hospital now. 03/08- stable overnight. up in the chair- still cough, remains on oxygen 03/09- vs, labs reviewed. Review of Systems Review of Systems: 12 systems were reviewed and are negativ e except for as per HPI. All systems reviewed & are unremarkable except as noted in HPI and below Exam Narrative: General: female in no acute respiratory distress who is nontoxic appearing, up in the chair HEENT: Normocephalic. Atraumatic. Extraocular movement intact. Sclera clear and anicteric. No facial asymmetry. Chest: Lungs are diminished to auscultation bilaterally with slight wheezing. No crackles. CV: Heart was regular rate and rhythm. S1-S2. No murmurs, gallops, or rubs. Abd: Abdomen was soft. Nontender. Nondistended. Positive bowel sounds. No organomegaly or masses. Ext: No clubbing, cyanosis, or edema. 2+ DP pulses bilaterally. Neuro: Patient is alert and oriented x4. Cranial nerves 2-12 are intact. Speech is clear. Const: General: comfortable Objective Data Vital Signs Vital Signs: Vital Signs - 24 hr 03/08/24 16:12 03/08/24 20:00 03/08/24 21:04 Temperature 97.8 F Pulse Rate 60 56 L 58 L Respiratory Rate 20 18 Blood Pressure 140/74 Pulse Oximetry 96 98 Oxygen Delivery Oxygen Flow Rate 03/08/24 21:05 03/09/24 05:24 03/09/24 08:00 Temperature 97.4 F L 98.2 F Pulse Rate 56 L 55 L Respiratory Rate 18 16 Blood Pressure 153/65 H 128/59 L Pulse Oximetry 98 94 94 Oxygen Delivery Nasal Cannula Oxygen Flow Rate 2 03/09/24 09:07 Temperature Pulse Rate 58 L Respiratory Rate Blood Pressure Pulse Oximetry Oxygen Delivery Oxygen Flow Rate Intake/Output Intake/Output: Intake & Output 03/06/24 03/07/24 03/08/24 03/09/24 23:59 23:59 23:59 23:59 Intake Total 1670 1148 1250 1140 Output Total 1950 375 600 900 Balance -280 773 650 240 Meds/Results Medications: Active Medications Generic Name Dose Route Start Last Admin Trade Name Freq PRN Reason Stop Dose Admin Acetaminophen 650 mg 03/02/24 18:39 03/02/24 19:04 Acetaminophen 325 Mg Tablet PO 650 mg Q4H PRN Administration Mild Pain (1-3) or Fever Hydrocodone Bitart/Acetaminophen 1 tab 03/02/24 18:39 03/09/24 06:10 Hydrocodone/Acetaminophen (*Crx) 5-325 Mg Tablet PO 1 tab Q4H PRN Administration Pain Rated 4-6 Benzocaine 1 lozenge 03/04/24 11:47 03/04/24 12:16 Benzocaine/Menthol (*Bkc) 18 Ea Lozenge PO 1 lozenge PRN PRN Administration Sore Throat Calcitriol 0.25 mcg 03/02/24 20:00 Calcitriol 0.25 Mcg Capsule PO MoWeFr PRN AFTER DIALYSIS Calcium Carbonate 200 mg 03/03/24 09:00 03/09/24 09:06 Calcium Carbonate (Tums) 500 Mg (200 Mg Elemental) PO 200 mg DAILY QUINTON Administration Dexamethasone 6 mg 03/03/24 08:00 03/09/24 09:06 Dexamethasone 2 Mg Tablet PO 03/12/24 08:01 6 mg DAILY@0800 QUINTON Administration Enoxaparin Sodium 40 mg 03/03/24 09:00 03/09/24 09:07 Enoxaparin 40 Mg/0.4 Ml Syringe SUB-Q 40 mg DAILY QUINTON Administration Furosemide 40 mg 03/03/24 09:00 03/09/24 09:07 Furosemide 40 Mg Tablet PO 40 mg QAM QUINTON Administration Guaifenesin/Dextromethorphan 5 ml 03/04/24 14:11 Guaifenesin/Dextromethorphan 10 Ml Udc PO Q4H PRN Cough Levothyroxine Sodium 200 mcg 03/03/24 06:30 03/09/24 06:11 Levothyroxine Sodium 100 Mcg Tablet PO 200 mcg DAILY@0630 QUINTON Administration Loratadine 10 mg 03/03/24 09:00 03/09/24 09:07 Loratadine 10 Mg Tablet PO 10 mg QAM QUINTON Administration Multivitamins/Calcium 1 tablet 03/03/24 09:00 03/09/24 09:07 Therapeutic Multivitamins/Minerals Tab (*Bkc) PO 1 tablet DAILY QUINTON Administration Pregabalin 200 mg 03/03/24 09:00 03/09/24 09:07 Pregabalin (*Crx) 50 Mg Capsule PO 200 mg BID QUINTON Administration Primidone 50 mg 03/03/24 09:00 03/09/24 09:07 Primidone 50 Mg Tablet PO 50 mg BID QUINTON Administration Propranolol HCl 60 mg 03/02/24 21:35 03/09/24 09:07 Propranolol Hcl 60 Mg Capsule Cr PO 60 mg Q12HR QUINTON Administration Rosuvastatin Calcium 20 mg 03/03/24 09:00 03/09/24 09:08 Rosuvastatin 20 Mg Tablet PO 20 mg DAILY QUINTON Administration Spironolactone 50 mg 03/03/24 09:00 03/09/24 09:08 Spironolactone 50 Mg Tablet PO 50 mg DAILY QUINTON Administration Vitamin D 2,000 units 03/03/24 09:00 03/09/24 09:06 Cholecalciferol 1,000 Units Tablet PO 2,000 units DAILY QUINTON Administration Radiology Results: ITS Impressions Chest X-Ray 03/02/24 17:44 IMPRESSION: Mild interstitial edema versus senescent/interstitial change. Head CT 03/03/24 15:36 IMPRESSION: 1. Normal aging brain. No acute intracranial process. Cervical Spine CT 03/03/24 16:53 IMPRESSION: 1. Stable mild cervical spondylosis. 2. Anterior fusion procedure from C4 to C7. Labs Labs: Laboratory Results - last 24 hr 03/09/24 05:30 WBC 6.0 RBC 4.70 Hgb 14.6 Hct 45.4 MCV 96.6 MCH 31.1 MCHC 32.2 RDW 13.4 Plt Count 178 MPV 11.4 H Immature Gran % (Auto) 0.2 Neut % (Auto) 42.6 L Lymph % (Auto) 40.7 [place] % (Auto) 15.2 H Eos % (Auto) 1.0 Baso % (Auto) 0.3 Lymph # (Auto) 2.43 [place] # (Auto) 0.9 H Eos # (Auto) 0.1 Baso # (Auto) 0.0 Abs Immat Gran (auto) 0.01 Absolute Neuts (auto) 2.5 Absolute Nucleated RBC 0.000 Nucleated RBC % 0.0 Sodium 137 Potassium 4.2 Chloride 100 Carbon Dioxide 35 H Anion Gap 2 L BUN 40 H Creatinine 1.70 H Estim Creat Clear Calc 35 Estimated GFR 29 L Glucose 76 Calcium 10.0 Total Bilirubin 0.7 AST 48 H ALT 49 H Alkaline Phosphatase 76 Total Protein 6.0 L Albumin 3.4 L Quality VTE Prophylaxis VTE prophylaxis: pharmacologic ordered
[2024-03-10] VITALS (7 sets, daily range): BP systolic 142–148; BP diastolic 56–73; PULSE 50–74; RESP 16–18; TEMP 36.2–36.7; O2SAT 95–99
[2024-03-10] MEDS: HYDROcodone/acetaminophen (*CRX) 5-325 MG TABLET 1 TAB PO ×3 (02:23→21:11)
[2024-03-10] MEDS: SUMAtriptan SUCCINATE 25 MG TABLET 100 MG PO (03:53)
[2024-03-10] MEDS: LEVOTHYROXINE SODIUM 100 MCG TABLET 200 MCG PO (05:52)
--- NOTE | 2024-03-10 07:40 | P.PNIM_ITS ---
Progress Note: A&P Assessment and Plan (1) Generalized weakness: Code(s): R53.1 - Weakness Status: Acute Assessment and Plan: Limited mobility at baseline due to bone on bone arthritis in her right knee and according to her daughter she really only leaves her bedroom to go to the bathroom and back. The last several days she has been feeling increasingly weak from baseline and she was so weak prior to admission that she could not even get herself up off of the toilet. - Viral panel: Covid positive - UA unremarkable - Chest XR: Mild interstitial edema versus senescent/interstitial change. - PT/OT PT/OT was recommending SNF, however patient was against placement- but agreeable now awaiting placement continue workign with PT/OT (2) COVID-19: Code(s): U07.1 - COVID-19 Status: Acute Assessment and Plan: Reports weakness, generalized malaise, body aches, headache, sore throat, and cough which is occasionally productive of yellow sputum. - Viral panel: Covid positive - Chest XR: Mild interstitial edema versus senescent/interstitial change. - Pt is a candidate for Remdesivir and Dexamethasone, continue treatment according to suggested guidelines. Remdesivir 200 mg IV x1, then 100 mg IV x4 days, dexamethasone 6 mg IV daily x 10 days, or until discharge - Bronchodilators - Currently on her baseline oxygen supplementation of 2L NC. Oxygen via NC; wean as tolerated. Keep spO2 greater than 91% - Place in COVID19 isolation precautions, cardiac monitoring, and continuous pulse ox - Monitor serum electrolytes, CRP, Lactic acid, troponin, CBC, WBC, temperature curve and follow cultures IS ordered- needs a lot of encouragement to use (3) Headache: Code(s): R51.9 - Headache, unspecified Status: Acute Assessment and Plan: Patient endorsing a headache that worsens with neck movement. She states that she has had falls in the past, unable to state when her most recent fall was. Not on any anticoagulation. Neuro exam negative. - Head CT: Normal aging brain. No acute intracranial process. - C spine CT: Stable mild cervical spondylosis. Anterior fusion procedure from C4-C7. - analgesics (4) Chronic respiratory failure with hypoxia, on home oxygen therapy: Code(s): J96.11 - Chronic respiratory failure with hypoxia; Z99.81 - Dependence on supplemental oxygen Status: Acute Assessment and Plan: Remains on baseline 2 L NC. remains stable (5) Chronic obstructive pulmonary disease: Code(s): J44.9 - Chronic obstructive pulmonary disease, unspecified Status: Acute Assessment and Plan: Chronic, does not appear in acute exacerbation. - Monitor (6) Chronic kidney disease, stage 4 (severe): Code(s): N18.4 - Chronic kidney disease, stage 4 (severe) Status: Acute Assessment and Plan: Follows with nephrology, Dr. Penaloza. Last seen 12/17/23. AV shunt placement was attempted for possible dialysis, however this failed. - BUN/Cr 39/2.3 on am labs - Continue to monitor renal function - Avoid nephrotoxic medications - Renally dose medications labs reviewed- cr/bun improving- 1.70/40 (7) Hypothyroidism, unspecified: Qualifiers: Hypothyroidism type: unspecified Qualified Code(s): E03.9 - Hypothyroidism, unspecified Code(s): E03.9 - Hypothyroidism, unspecified Status: Acute Assessment and Plan: Chronic, continue home medications - Synthroid 200 mg daily, dose last adjusted on 02/26 by PCP (8) Hypertension: Code(s): I10 - Essential (primary) hypertension Status: Acute Assessment and Plan: Chronic, continue home medications - propranolol 60 mg daily - lasix 40 mg daily - spironolactone 50 mg daily - monitor reviewed- stable (9) Hyperlipidemia, unspecified: Qualifiers: Hyperlipidemia type: mixed hyperlipidemia Qualified Code(s): E78.2 - Mixed hyperlipidemia Code(s): E78.5 - Hyperlipidemia, unspecified Status: Acute Assessment and Plan: Chronic, continue home medications - rosuvastatin 20 mg daily Time Spent With Patient Time with patient: Greater than 35 minutes Subjective Date/time seen: 03/10/24 07:40 Interval history: 73-year-old female with chronic hypoxic respiratory failure on home oxygen, chronic obstructive pulmonary disease, chronic kidney disease stage 4, hypertension, hyperlipidemia, arthritis, hypothyroidism, and other comorbidities who presented to the emergency department via EMS from home for evaluation of weakness. Patient is pleasant working with PT in getting up to her chair. She states that she feels slightly short of breath and has a worsening cough, but denies chest pain, palpitations, nausea/vomiting and abdominal pain. She continues to endorse pain throughout. Discussed with her that pain management outpatient would be beneficial for her chronic symptoms. PT/OT was originally recommending SNF, however patient is against placement. She states that she will not go SNF but is okay with home health if necessary at time of discharge. Care coordination is following. assuming care. Pt is back to her baseline but doesnot want to go home as her daughter is concerned that might get covid as well plus pt is agreeable now to try rehab for strength. care coordination is working to arrange that. 03/06- awaiting placement -care coordination following. supportive care 03/07- seen and examined. Tired today but overall feeling ok. Still waiting for insurance auth for rehab. and daughter both have covid now-and in the hospital now. 03/08- stable overnight. up in the chair- still cough, remains on oxygen 03/09- vs, labs reviewed. 03/10- still pending insurance authorization. care coordination is following. remains at her baseline oxygen. working with pt/ot Review of Systems Review of Systems: 12 systems were reviewed and are negativ e except for as per HPI. All systems reviewed & are unremarkable except as noted in HPI and below Exam Narrative: General: female in no acute respiratory distress who is nontoxic appearing HEENT: Normocephalic. Atraumatic. Extraocular movement intact. Sclera clear and anicteric. No facial asymmetry. Chest: Lungs are diminished to auscultation bilaterally with slight wheezing. No crackles. CV: Heart was regular rate and rhythm. S1-S2. No murmurs, gallops, or rubs. Abd: Abdomen was soft. Nontender. Nondistended. Positive bowel sounds. No organomegaly or masses. Ext: No clubbing, cyanosis, or edema. 2+ DP pulses bilaterally. Neuro: Patient is alert and oriented x4. Cranial nerves 2-12 are intact. Speech is clear. Const: General: comfortable Objective Data Vital Signs Vital Signs: Vital Signs - 24 hr 03/09/24 08:00 03/09/24 09:07 03/09/24 14:36 Temperature 97.7 F Pulse Rate 58 L 62 Respiratory Rate 16 Blood Pressure 123/63 Pulse Oximetry 94 93 Oxygen Delivery Nasal Cannula Oxygen Flow Rate 2 03/09/24 20:00 03/09/24 20:17 03/09/24 20:30 Temperature 98.3 F Pulse Rate 58 L 58 L Respiratory Rate 17 Blood Pressure 126/61 Pulse Oximetry 97 97 Oxygen Delivery Nasal Cannula Oxygen Flow Rate 2 03/10/24 05:07 Temperature 98.0 F Pulse Rate 50 L Respiratory Rate 18 Blood Pressure 147/56 H Pulse Oximetry 95 Oxygen Delivery Oxygen Flow Rate Intake/Output Intake/Output: Intake & Output 03/07/24 03/08/24 03/09/24 03/10/24 23:59 23:59 23:59 23:59 Intake Total 1148 1250 2360 550 Output Total 344 445 6851 400 Balance 773 650 110 150 Meds/Results Medications: Active Medications Generic Name Dose Route Start Last Admin Trade Name Freq PRN Reason Stop Dose Admin Acetaminophen 650 mg 03/02/24 18:39 03/02/24 19:04 Acetaminophen 325 Mg Tablet PO 650 mg Q4H PRN Administration Mild Pain (1-3) or Fever Hydrocodone Bitart/Acetaminophen 1 tab 03/02/24 18:39 03/10/24 02:23 Hydrocodone/Acetaminophen (*Crx) 5-325 Mg Tablet PO 1 tab Q4H PRN Administration Pain Rated 4-6 Benzocaine 1 lozenge 03/04/24 11:47 03/04/24 12:16 Benzocaine/Menthol (*Bkc) 18 Ea Lozenge PO 1 lozenge PRN PRN Administration Sore Throat Calcitriol 0.25 mcg 03/02/24 20:00 Calcitriol 0.25 Mcg Capsule PO MoWeFr PRN AFTER DIALYSIS Calcium Carbonate 200 mg 03/03/24 09:00 03/09/24 09:06 Calcium Carbonate (Tums) 500 Mg (200 Mg Elemental) PO 200 mg DAILY QUINTON Administration Dexamethasone 6 mg 03/03/24 08:00 03/09/24 09:06 Dexamethasone 2 Mg Tablet PO 03/12/24 08:01 6 mg DAILY@0800 QUINTON Administration Enoxaparin Sodium 40 mg 03/03/24 09:00 03/09/24 09:07 Enoxaparin 40 Mg/0.4 Ml Syringe SUB-Q 40 mg DAILY QUINTON Administration Furosemide 40 mg 03/03/24 09:00 03/09/24 09:07 Furosemide 40 Mg Tablet PO 40 mg QAM QUINTON Administration Guaifenesin/Dextromethorphan 5 ml 03/04/24 14:11 Guaifenesin/Dextromethorphan 10 Ml Udc PO Q4H PRN Cough Levothyroxine Sodium 200 mcg 03/03/24 06:30 03/10/24 05:52 Levothyroxine Sodium 100 Mcg Tablet PO 200 mcg DAILY@0630 QUINTON Administration Loratadine 10 mg 03/03/24 09:00 03/09/24 09:07 Loratadine 10 Mg Tablet PO 10 mg QAM QUINTON Administration Multivitamins/Calcium 1 tablet 03/03/24 09:00 03/09/24 09:07 Therapeutic Multivitamins/Minerals Tab (*Bkc) PO 1 tablet DAILY QUINTON Administration Pregabalin 200 mg 03/03/24 09:00 03/09/24 16:56 Pregabalin (*Crx) 50 Mg Capsule PO 200 mg BID QUINTON Administration Primidone 50 mg 03/03/24 09:00 03/09/24 16:56 Primidone 50 Mg Tablet PO 50 mg BID QUINTON Administration Propranolol HCl 60 mg 03/02/24 21:35 03/09/24 20:17 Propranolol Hcl 60 Mg Capsule Cr PO 60 mg Q12HR QUINTON Administration Rosuvastatin Calcium 20 mg 03/03/24 09:00 03/09/24 09:08 Rosuvastatin 20 Mg Tablet PO 20 mg DAILY QUINTON Administration Spironolactone 50 mg 03/03/24 09:00 03/09/24 09:08 Spironolactone 50 Mg Tablet PO 50 mg DAILY QUINTON Administration Vitamin D 2,000 units 03/03/24 09:00 03/09/24 09:06 Cholecalciferol 1,000 Units Tablet PO 2,000 units DAILY QUINTON Administration Radiology Results: ITS Impressions Chest X-Ray 03/02/24 17:44 IMPRESSION: Mild interstitial edema versus senescent/interstitial change. Head CT 03/03/24 15:36 IMPRESSION: 1. Normal aging brain. No acute intracranial process. Cervical Spine CT 03/03/24 16:53 IMPRESSION: 1. Stable mild cervical spondylosis. 2. Anterior fusion procedure from C4 to C7. Quality VTE Prophylaxis VTE prophylaxis: pharmacologic ordered
[2024-03-10] MEDS: SPIRONOLACTONE 50 MG TABLET PO (08:19)
[2024-03-10] MEDS: CHOLECALCIFEROL 1,000 UNITS TABLET 2000 UNITS PO (08:19)
[2024-03-10] MEDS: LORATADINE 10 MG TABLET PO (08:19)
[2024-03-10] MEDS: THERAPEUTIC MULTIVITAMINS/MINERALS TAB (*BKC) 1 TABLET PO (08:19)
[2024-03-10] MEDS: PRIMIDONE 50 MG TABLET PO ×2 (08:19→16:42)
[2024-03-10] MEDS: PROPRANOLOL HCL 60 MG CAPSULE CR PO ×2 (08:19→21:11)
[2024-03-10] MEDS: ENOXAPARIN 40 MG/0.4 ML SYRINGE SUB-Q (08:19)
[2024-03-10] MEDS: PREGABALIN (*CRX) 50 MG CAPSULE 200 MG PO ×2 (08:19→16:42)
[2024-03-10] MEDS: ROSUVASTATIN 20 MG TABLET PO (08:19)
[2024-03-10] MEDS: FUROSEMIDE 40 MG TABLET PO (08:19)
[2024-03-10] MEDS: dexAMETHasone 2 MG TABLET 6 MG PO (08:19)
[2024-03-10] MEDS: CALCIUM CARBONATE (TUMS) 500 MG (200 MG ELEMENTAL) PO (08:19)
[2024-03-11] VITALS (7 sets, daily range): BP systolic 141–150; BP diastolic 60–69; PULSE 51–67; RESP 14–18; TEMP 36.3–36.6; O2SAT 96–100
[2024-03-11] MEDS: LEVOTHYROXINE SODIUM 100 MCG TABLET 200 MCG PO (05:21)
[2024-03-11] MEDS: SUMAtriptan SUCCINATE 25 MG TABLET 100 MG PO (05:32)
[2024-03-11] MEDS: HYDROcodone/acetaminophen (*CRX) 5-325 MG TABLET 1 TAB PO ×4 (06:22→21:58)
--- NOTE | 2024-03-11 08:01 | P.PNIM_ITS ---
Progress Note: A&P Assessment and Plan (1) Generalized weakness: Code(s): R53.1 - Weakness Status: Acute Assessment and Plan: Limited mobility at baseline due to bone on bone arthritis in her right knee and according to her daughter she really only leaves her bedroom to go to the bathroom and back. The last several days she has been feeling increasingly weak from baseline and she was so weak prior to admission that she could not even get herself up off of the toilet. - Viral panel: Covid positive - UA unremarkable - Chest XR: Mild interstitial edema versus senescent/interstitial change. - PT/OT PT/OT was recommending SNF, however patient was against placement- but agreeable now awaiting placement continue workign with PT/OT (2) COVID-19: Code(s): U07.1 - COVID-19 Status: Acute Assessment and Plan: Reports weakness, generalized malaise, body aches, headache, sore throat, and cough which is occasionally productive of yellow sputum. - Viral panel: Covid positive - Chest XR: Mild interstitial edema versus senescent/interstitial change. - Pt is a candidate for Remdesivir and Dexamethasone, continue treatment according to suggested guidelines. Remdesivir 200 mg IV x1, then 100 mg IV x4 days, dexamethasone 6 mg IV daily x 10 days, or until discharge - Bronchodilators - Currently on her baseline oxygen supplementation of 2L NC. Oxygen via NC; wean as tolerated. Keep spO2 greater than 91% - Place in COVID19 isolation precautions, cardiac monitoring, and continuous pulse ox - Monitor serum electrolytes, CRP, Lactic acid, troponin, CBC, WBC, temperature curve and follow cultures IS ordered- needs a lot of encouragement to use (3) Headache: Code(s): R51.9 - Headache, unspecified Status: Acute Assessment and Plan: Patient endorsing a headache that worsens with neck movement. She states that she has had falls in the past, unable to state when her most recent fall was. Not on any anticoagulation. Neuro exam negative. - Head CT: Normal aging brain. No acute intracranial process. - C spine CT: Stable mild cervical spondylosis. Anterior fusion procedure from C4-C7. - analgesics (4) Chronic respiratory failure with hypoxia, on home oxygen therapy: Code(s): J96.11 - Chronic respiratory failure with hypoxia; Z99.81 - Dependence on supplemental oxygen Status: Acute Assessment and Plan: Remains on baseline 2 L NC. remains stable (5) Chronic obstructive pulmonary disease: Code(s): J44.9 - Chronic obstructive pulmonary disease, unspecified Status: Acute Assessment and Plan: Chronic, does not appear in acute exacerbation. - Monitor (6) Chronic kidney disease, stage 4 (severe): Code(s): N18.4 - Chronic kidney disease, stage 4 (severe) Status: Acute Assessment and Plan: Follows with nephrology, Dr. Penaloza. Last seen 12/17/23. AV shunt placement was attempted for possible dialysis, however this failed. - BUN/Cr 39/2.3 on am labs - Continue to monitor renal function - Avoid nephrotoxic medications - Renally dose medications labs reviewed- cr/bun improving- 1.70/40 (7) Hypothyroidism, unspecified: Qualifiers: Hypothyroidism type: unspecified Qualified Code(s): E03.9 - Hypothyroidism, unspecified Code(s): E03.9 - Hypothyroidism, unspecified Status: Acute Assessment and Plan: Chronic, continue home medications - Synthroid 200 mg daily, dose last adjusted on 02/26 by PCP (8) Hypertension: Code(s): I10 - Essential (primary) hypertension Status: Acute Assessment and Plan: Chronic, continue home medications - propranolol 60 mg daily - lasix 40 mg daily - spironolactone 50 mg daily - monitor reviewed- stable (9) Hyperlipidemia, unspecified: Qualifiers: Hyperlipidemia type: mixed hyperlipidemia Qualified Code(s): E78.2 - Mixed hyperlipidemia Code(s): E78.5 - Hyperlipidemia, unspecified Status: Acute Assessment and Plan: Chronic, continue home medications - rosuvastatin 20 mg daily Plan still waiting for instance auth. for placement Time Spent With Patient Time with patient: 25 - 35 minutes Subjective Date/time seen: 03/11/24 08:01 Interval history: 73-year-old female with chronic hypoxic respiratory failure on home oxygen, chronic obstructive pulmonary disease, chronic kidney disease stage 4, hypertension, hyperlipidemia, arthritis, hypothyroidism, and other comorbidities who presented to the emergency department via EMS from home for evaluation of weakness. Patient is pleasant working with PT in getting up to her chair. She states that she feels slightly short of breath and has a worsening cough, but denies chest pain, palpitations, nausea/vomiting and abdominal pain. She continues to endorse pain throughout. Discussed with her that pain management outpatient would be beneficial for her chronic symptoms. PT/OT was originally recommending SNF, however patient is against placement. She states that she will not go SNF but is okay with home health if necessary at time of discharge. Care coordination is following. assuming care. Pt is back to her baseline but doesnot want to go home as her daughter is concerned that might get covid as well plus pt is agreeable now to try rehab for strength. care coordination is working to arrange that. 03/06- awaiting placement -care coordination following. supportive care 03/07- seen and examined. Tired today but overall feeling ok. Still waiting for insurance auth for rehab. and daughter both have covid now-and in the hospital now. 03/08- stable overnight. up in the chair- still cough, remains on oxygen 03/09- vs, labs reviewed. 03/10- still pending insurance authorization. care coordination is following. remains at her baseline oxygen. working with pt/ot 03/11- stable- no acute events. Review of Systems Review of Systems: 12 systems were reviewed and are negativ e except for as per HPI. All systems reviewed & are unremarkable except as noted in HPI and below Exam Narrative: General: female in no acute respiratory distress who is nontoxic appearing HEENT: Normocephalic. Atraumatic. Extraocular movement intact. Sclera clear and anicteric. No facial asymmetry. Chest: Lungs are diminished to auscultation bilaterally with slight wheezing. No crackles. CV: Heart was regular rate and rhythm. S1-S2. No murmurs, gallops, or rubs. Abd: Abdomen was soft. Nontender. Nondistended. Positive bowel sounds. No organomegaly or masses. Ext: No clubbing, cyanosis, or edema. 2+ DP pulses bilaterally. Neuro: Patient is alert and oriented x4. Cranial nerves 2-12 are intact. Speech is clear. Const: General: comfortable Objective Data Vital Signs Vital Signs: Vital Signs - 24 hr 03/10/24 08:19 03/10/24 14:00 03/10/24 20:00 Temperature 97.3 F L Pulse Rate 57 L 64 Respiratory Rate 16 Blood Pressure 148/73 H Pulse Oximetry 99 95 Oxygen Delivery Nasal Cannula Oxygen Flow Rate 2 03/10/24 21:03 03/10/24 21:11 03/11/24 06:00 Temperature 97.2 F L 97.7 F Pulse Rate 58 L 74 51 L Respiratory Rate 18 18 Blood Pressure 142/67 H 142/60 H Pulse Oximetry 95 96 Oxygen Delivery Oxygen Flow Rate Intake/Output Intake/Output: Intake & Output 03/08/24 03/09/24 03/10/24 03/11/24 23:59 23:59 23:59 23:59 Intake Total 1250 2360 7672 170 Output Total 600 2250 650 300 Balance 062 189 0666 -130 Meds/Results Medications: Active Medications Generic Name Dose Route Start Last Admin Trade Name Freq PRN Reason Stop Dose Admin Acetaminophen 650 mg 03/02/24 18:39 03/02/24 19:04 Acetaminophen 325 Mg Tablet PO 650 mg Q4H PRN Administration Mild Pain (1-3) or Fever Hydrocodone Bitart/Acetaminophen 1 tab 03/02/24 18:39 03/11/24 06:22 Hydrocodone/Acetaminophen (*Crx) 5-325 Mg Tablet PO 1 tab Q4H PRN Administration Pain Rated 4-6 Benzocaine 1 lozenge 03/04/24 11:47 03/04/24 12:16 Benzocaine/Menthol (*Bkc) 18 Ea Lozenge PO 1 lozenge PRN PRN Administration Sore Throat Calcitriol 0.25 mcg 03/02/24 20:00 Calcitriol 0.25 Mcg Capsule PO MoWeFr PRN AFTER DIALYSIS Calcium Carbonate 200 mg 03/03/24 09:00 03/10/24 08:19 Calcium Carbonate (Tums) 500 Mg (200 Mg Elemental) PO 200 mg DAILY QUINTON Administration Dexamethasone 6 mg 03/03/24 08:00 03/10/24 08:19 Dexamethasone 2 Mg Tablet PO 03/12/24 08:01 6 mg DAILY@0800 QUINTON Administration Enoxaparin Sodium 40 mg 03/03/24 09:00 03/10/24 08:19 Enoxaparin 40 Mg/0.4 Ml Syringe SUB-Q 40 mg DAILY QUINTON Administration Furosemide 40 mg 03/03/24 09:00 03/10/24 08:19 Furosemide 40 Mg Tablet PO 40 mg QAM QUINTON Administration Guaifenesin/Dextromethorphan 5 ml 03/04/24 14:11 Guaifenesin/Dextromethorphan 10 Ml Udc PO Q4H PRN Cough Levothyroxine Sodium 200 mcg 03/03/24 06:30 03/11/24 05:21 Levothyroxine Sodium 100 Mcg Tablet PO 200 mcg DAILY@0630 QUINTON Administration Loratadine 10 mg 03/03/24 09:00 03/10/24 08:19 Loratadine 10 Mg Tablet PO 10 mg QAM QUINTNO Administration Multivitamins/Calcium 1 tablet 03/03/24 09:00 03/10/24 08:19 Therapeutic Multivitamins/Minerals Tab (*Bkc) PO 1 tablet DAILY QUINTON Administration Pregabalin 200 mg 03/03/24 09:00 03/10/24 16:42 Pregabalin (*Crx) 50 Mg Capsule PO 200 mg BID QUINTON Administration Primidone 50 mg 03/03/24 09:00 03/10/24 16:42 Primidone 50 Mg Tablet PO 50 mg BID QUINTON Administration Propranolol HCl 60 mg 03/02/24 21:35 03/10/24 21:11 Propranolol Hcl 60 Mg Capsule Cr PO 60 mg Q12HR QUINTON Administration Rosuvastatin Calcium 20 mg 03/03/24 09:00 03/10/24 08:19 Rosuvastatin 20 Mg Tablet PO 20 mg DAILY QUINTON Administration Spironolactone 50 mg 03/03/24 09:00 03/10/24 08:19 Spironolactone 50 Mg Tablet PO 50 mg DAILY QUINTON Administration Vitamin D 2,000 units 03/03/24 09:00 03/10/24 08:19 Cholecalciferol 1,000 Units Tablet PO 2,000 units DAILY QUINTON Administration Radiology Results: ITS Impressions Chest X-Ray 03/02/24 17:44 IMPRESSION: Mild interstitial edema versus senescent/interstitial change. Head CT 03/03/24 15:36 IMPRESSION: 1. Normal aging brain. No acute intracranial process. Cervical Spine CT 03/03/24 16:53 IMPRESSION: 1. Stable mild cervical spondylosis. 2. Anterior fusion procedure from C4 to C7. Quality VTE Prophylaxis VTE prophylaxis: pharmacologic ordered
--- NOTE | 2024-03-11 08:07 | PCNWS ---
Weekly nutritional screen. Patient is tolerating current diet with adequate intake. No weight loss reported. No nutritional needs at this time.
[2024-03-11] MEDS: PROPRANOLOL HCL 60 MG CAPSULE CR PO ×2 (09:28→21:57)
[2024-03-11] MEDS: FUROSEMIDE 40 MG TABLET PO (09:28)
[2024-03-11] MEDS: CHOLECALCIFEROL 1,000 UNITS TABLET 2000 UNITS PO (09:28)
[2024-03-11] MEDS: LORATADINE 10 MG TABLET PO (09:28)
[2024-03-11] MEDS: dexAMETHasone 2 MG TABLET 6 MG PO (09:28)
[2024-03-11] MEDS: PRIMIDONE 50 MG TABLET PO ×2 (09:28→17:06)
[2024-03-11] MEDS: ROSUVASTATIN 20 MG TABLET PO (09:29)
[2024-03-11] MEDS: PREGABALIN (*CRX) 50 MG CAPSULE 200 MG PO ×2 (09:29→17:06)
[2024-03-11] MEDS: ENOXAPARIN 40 MG/0.4 ML SYRINGE SUB-Q (09:30)
[2024-03-11] MEDS: CALCIUM CARBONATE (TUMS) 500 MG (200 MG ELEMENTAL) PO (09:30)
[2024-03-11] MEDS: SPIRONOLACTONE 50 MG TABLET PO (09:30)
[2024-03-11] MEDS: THERAPEUTIC MULTIVITAMINS/MINERALS TAB (*BKC) 1 TABLET PO (09:30)
[2024-03-12] MEDS: HYDROcodone/acetaminophen (*CRX) 5-325 MG TABLET 1 TAB PO ×5 (05:26→23:00)
[2024-03-12] MEDS: LEVOTHYROXINE SODIUM 100 MCG TABLET 200 MCG PO (05:27)
[2024-03-12 05:42] LABS: Hematocrit 42.9 % (37.0-47.0); Hemoglobin 13.5 g/dL (12.0-15.0); Mean Corpuscular HGB Conc 31.5 g/dl (32-36); Mean Corpuscular Hemoglobin 30.6 pg (26-34); Mean Corpuscular Volume 97.3 fl (80-100); Platelet Count Result 167 k/mm3 (150-375); Red Blood Count 4.41 M/mm3 (4.2-5.4); Red Cell Distribution Width 13.3 % (11.5-14.5); White Blood Count 5.1 K/mm3 (4.5-10.0)
[2024-03-12 05:56] LABS: Anion Gap -1 mmol/L (4-12); Blood Urea Nitrogen 43 mg/dL (7-17); Calcium 10.1 mg/dL (8.4-10.2); Carbon Dioxide 35 mmol/L (22-30); Chloride 102 mmol/L (98-107); Estimated CRCL calculation 36 ml/min; Estimated Glomerular Filt Rate 29; Glucose 84 mg/dL (65-110); Sodium 136 mmol/L (137-145)
[2024-03-12 06:00] VITALS: BP 140/60; PULSE 64; RESP 18; TEMP 36.7; O2SAT 99
[2024-03-12 08:00] VITALS: O2SAT 95
--- NOTE | 2024-03-12 08:23 | PM.IMPN ---
Progress Note: A&P Assessment and Plan (1) Generalized weakness: Code(s): R53.1 - Weakness Status: Acute Assessment and Plan: Limited mobility at baseline due to bone on bone arthritis in her right knee and according to her daughter she really only leaves her bedroom to go to the bathroom and back. The last several days she has been feeling increasingly weak from baseline and she was so weak prior to admission that she could not even get herself up off of the toilet. - Viral panel: Covid positive - UA unremarkable - Chest XR: Mild interstitial edema versus senescent/interstitial change. - PT/OT PT/OT was recommending SNF, however patient was against placement- but agreeable now awaiting placement continue working with PT/OT (2) COVID-19: Code(s): U07.1 - COVID-19 Status: Acute Assessment and Plan: Reports weakness, generalized malaise, body aches, headache, sore throat, and cough which is occasionally productive of yellow sputum. - Viral panel: Covid positive - Chest XR: Mild interstitial edema versus senescent/interstitial change. - Pt is a candidate for Remdesivir and Dexamethasone, continue treatment according to suggested guidelines. Remdesivir 200 mg IV x1, then 100 mg IV x4 days, dexamethasone 6 mg IV daily x 10 days, or until discharge. Completed course during admission. - Bronchodilators - Currently on her baseline oxygen supplementation of 2L NC. Oxygen via NC; wean as tolerated. Keep spO2 greater than 91% - Off COVID19 isolation precautions as she was isolated for the required days - cardiac monitoring, and continuous pulse ox - Monitor serum electrolytes, CRP, Lactic acid, troponin, CBC, WBC, temperature curve and follow cultures IS ordered- needs a lot of encouragement to use (3) Headache: Code(s): R51.9 - Headache, unspecified Status: Acute Assessment and Plan: Patient endorsing a headache that worsens with neck movement. She states that she has had falls in the past, unable to state when her most recent fall was. Not on any anticoagulation. Neuro exam negative. - Head CT: Normal aging brain. No acute intracranial process. - C spine CT: Stable mild cervical spondylosis. Anterior fusion procedure from C4-C7. - analgesics (4) Chronic respiratory failure with hypoxia, on home oxygen therapy: Code(s): J96.11 - Chronic respiratory failure with hypoxia; Z99.81 - Dependence on supplemental oxygen Status: Acute Assessment and Plan: Remains on baseline 2 L NC. Stable (5) Chronic obstructive pulmonary disease: Code(s): J44.9 - Chronic obstructive pulmonary disease, unspecified Status: Acute Assessment and Plan: Chronic, does not appear in acute exacerbation. - Monitor (6) Chronic kidney disease, stage 4 (severe): Code(s): N18.4 - Chronic kidney disease, stage 4 (severe) Status: Acute Assessment and Plan: Follows with nephrology, Dr. Penaloza. Last seen 12/17/23. AV shunt placement was attempted for possible dialysis, however this failed. - BUN/Cr 43/1.7 on am labs - Continue to monitor renal function - Avoid nephrotoxic medications - Renally dose medications (7) Hypothyroidism, unspecified: Qualifiers: Hypothyroidism type: unspecified Qualified Code(s): E03.9 - Hypothyroidism, unspecified Code(s): E03.9 - Hypothyroidism, unspecified Status: Acute Assessment and Plan: Chronic, continue home medications - Synthroid 200 mg daily, dose last adjusted on 02/26 by PCP (8) Hypertension: Code(s): I10 - Essential (primary) hypertension Status: Acute Assessment and Plan: Chronic, continue home medications - propranolol 60 mg daily - lasix 40 mg daily - spironolactone 50 mg daily - monitor (9) Hyperlipidemia, unspecified: Qualifiers: Hyperlipidemia type: mixed hyperlipidemia Qualified Code(s): E78.2 - Mixed hyperlipidemia Code(s): E78.5 - Hyperlipidemia, unspecified Status: Acute Assessment and Plan: Chronic, continue home medications - rosuvastatin 20 mg daily Time Spent With Patient Time with patient: 25 - 35 minutes Subjective Date/time seen: 03/12/24 08:23 Interval history: 73-year-old female with chronic hypoxic respiratory failure on home oxygen, chronic obstructive pulmonary disease, chronic kidney disease stage 4, hypertension, hyperlipidemia, arthritis, hypothyroidism, and other comorbidities who presented to the emergency department via EMS from home for evaluation of weakness. Patient is pleasant sitting up in her chair. She is AOx3 during assessment. She states that she is feeling okay today but notes slight nasal congestion. She denies a cough. She has no other complaints denying chest pain, shortness of breath, nausea/vomiting and abdominal pain. Review of Systems Review of Systems: All systems reviewed & are unremarkable except as noted in HPI and below Exam Narrative: AF HR 64 RR 18 SpO2 99 2 L NC BP 140/60 General: female in no acute respiratory distress who is nontoxic appearing, lying semi recumbent in bed. HEENT: Normocephalic. Atraumatic. Extraocular movement intact. Sclera clear and anicteric. No facial asymmetry. Chest: Lungs are diminished to auscultation bilaterally. No crackles or wheezes. CV: Heart was regular rate and rhythm. S1-S2. No murmurs, gallops, or rubs. Abd: Abdomen was soft. Nontender. Nondistended. Positive bowel sounds. No organomegaly or masses. Ext: No clubbing, cyanosis, or edema. 2+ DP pulses bilaterally. Neuro: Patient is alert and oriented x4. Cranial nerves 2-12 are intact. Speech is clear. Objective Data Vital Signs Vital Signs: Vital Signs - 24 hr 03/11/24 09:28 03/11/24 14:00 03/11/24 21:40 Temperature 97.4 F L Pulse Rate 62 67 Respiratory Rate 14 Blood Pressure 150/69 H Pulse Oximetry 97 100 Oxygen Delivery Nasal Cannula Oxygen Flow Rate 2 03/11/24 21:57 03/11/24 22:00 03/12/24 06:00 Temperature 97.8 F 98.1 F Pulse Rate 61 61 64 Respiratory Rate 18 18 Blood Pressure 141/69 H 140/60 Pulse Oximetry 100 99 Oxygen Delivery Oxygen Flow Rate Intake/Output Intake/Output: Intake & Output 03/09/24 03/10/24 03/11/24 03/12/24 23:59 23:59 23:59 23:59 Intake Total 2360 7672 1880 100 Output Total 2250 650 900 550 Balance 110 7022 980 -450 Meds/Results Medications: Active Medications Generic Name Dose Route Start Last Admin Trade Name Freq PRN Reason Stop Dose Admin Acetaminophen 650 mg 03/02/24 18:39 03/02/24 19:04 Acetaminophen 325 Mg Tablet PO 650 mg Q4H PRN Administration Mild Pain (1-3) or Fever Hydrocodone Bitart/Acetaminophen 1 tab 03/02/24 18:39 03/12/24 05:26 Hydrocodone/Acetaminophen (*Crx) 5-325 Mg Tablet PO 1 tab Q4H PRN Administration Pain Rated 4-6 Benzocaine 1 lozenge 03/04/24 11:47 03/04/24 12:16 Benzocaine/Menthol (*Bkc) 18 Ea Lozenge PO 1 lozenge PRN PRN Administration Sore Throat Calcitriol 0.25 mcg 03/02/24 20:00 Calcitriol 0.25 Mcg Capsule PO MoWeFr PRN AFTER DIALYSIS Calcium Carbonate 200 mg 03/03/24 09:00 03/11/24 09:30 Calcium Carbonate (Tums) 500 Mg (200 Mg Elemental) PO 200 mg DAILY QUINTON Administration Enoxaparin Sodium 40 mg 03/03/24 09:00 03/11/24 09:30 Enoxaparin 40 Mg/0.4 Ml Syringe SUB-Q 40 mg DAILY QUINTON Administration Furosemide 40 mg 03/03/24 09:00 03/11/24 09:28 Furosemide 40 Mg Tablet PO 40 mg QAM QUINTON Administration Guaifenesin/Dextromethorphan 5 ml 03/04/24 14:11 Guaifenesin/Dextromethorphan 10 Ml Udc PO Q4H PRN Cough Levothyroxine Sodium 200 mcg 03/03/24 06:30 03/12/24 05:27 Levothyroxine Sodium 100 Mcg Tablet PO 200 mcg DAILY@0630 QUINTON Administration Loratadine 10 mg 03/03/24 09:00 03/11/24 09:28 Loratadine 10 Mg Tablet PO 10 mg QAM QUINTON Administration Miscellaneous Information 1 each 03/11/24 00:01 Nghia Will If Not Renewed 03-12-24 XX 04/10/24 00:00 CLARIFY QUINTON Multivitamins/Calcium 1 tablet 03/03/24 09:00 03/11/24 09:30 Therapeutic Multivitamins/Minerals Tab (*Bkc) PO 1 tablet DAILY QUINTON Administration Pregabalin 200 mg 03/03/24 09:00 03/11/24 17:06 Pregabalin (*Crx) 50 Mg Capsule PO 200 mg BID QUINTON Administration Primidone 50 mg 03/03/24 09:00 03/11/24 17:06 Primidone 50 Mg Tablet PO 50 mg BID QUINTON Administration Propranolol HCl 60 mg 03/02/24 21:35 03/11/24 21:57 Propranolol Hcl 60 Mg Capsule Cr PO 60 mg Q12HR QUINTON Administration Rosuvastatin Calcium 20 mg 03/03/24 09:00 03/11/24 09:29 Rosuvastatin 20 Mg Tablet PO 20 mg DAILY QUINTON Administration Spironolactone 50 mg 03/03/24 09:00 03/11/24 09:30 Spironolactone 50 Mg Tablet PO 50 mg DAILY QUINTON Administration Vitamin D 2,000 units 03/03/24 09:00 03/11/24 09:28 Cholecalciferol 1,000 Units Tablet PO 2,000 units DAILY QUINTON Administration Radiology Results: ITS Impressions Chest X-Ray 03/02/24 17:44 IMPRESSION: Mild interstitial edema versus senescent/interstitial change. Head CT 03/03/24 15:36 IMPRESSION: 1. Normal aging brain. No acute intracranial process. Cervical Spine CT 03/03/24 16:53 IMPRESSION: 1. Stable mild cervical spondylosis. 2. Anterior fusion procedure from C4 to C7. Labs Labs: Laboratory Results - last 24 hr 03/12/24 05:23 WBC 5.1 RBC 4.41 Hgb 13.5 Hct 42.9 MCV 97.3 MCH 30.6 MCHC 31.5 L RDW 13.3 Plt Count 167 MPV 11.0 H Sodium 136 L Potassium 4.0 Chloride 102 Carbon Dioxide 35 H Anion Gap -1 L BUN 43 H Creatinine 1.70 H Estim Creat Clear Calc 36 Estimated GFR 29 L Glucose 84 Calcium 10.1 Quality VTE Prophylaxis VTE prophylaxis: pharmacologic ordered
[2024-03-12] MEDS: dexAMETHasone 2 MG TABLET 6 MG PO (08:53)
[2024-03-12] MEDS: CHOLECALCIFEROL 1,000 UNITS TABLET 2000 UNITS PO (08:54)
[2024-03-12] MEDS: SPIRONOLACTONE 50 MG TABLET PO (08:54)
[2024-03-12] MEDS: ENOXAPARIN 40 MG/0.4 ML SYRINGE SUB-Q (08:54)
[2024-03-12] MEDS: THERAPEUTIC MULTIVITAMINS/MINERALS TAB (*BKC) 1 TABLET PO (08:54)
[2024-03-12] MEDS: PROPRANOLOL HCL 60 MG CAPSULE CR PO ×2 (08:54→21:11)
[2024-03-12] MEDS: LORATADINE 10 MG TABLET PO (08:54)
[2024-03-12] MEDS: PREGABALIN (*CRX) 50 MG CAPSULE 200 MG PO ×2 (08:54→16:37)
[2024-03-12] MEDS: FUROSEMIDE 40 MG TABLET PO (08:54)
[2024-03-12] MEDS: PRIMIDONE 50 MG TABLET PO ×2 (08:54→16:37)
[2024-03-12] MEDS: CALCIUM CARBONATE (TUMS) 500 MG (200 MG ELEMENTAL) PO (08:54)
[2024-03-12] MEDS: ROSUVASTATIN 20 MG TABLET PO (08:54)
[2024-03-12 14:00] VITALS: BP 154/71; PULSE 69; RESP 16; TEMP 36.4; O2SAT 98
[2024-03-12 20:00] VITALS: O2SAT 96
[2024-03-12 21:11] VITALS: PULSE 64
[2024-03-12 22:00] VITALS: BP 147/66; PULSE 60; RESP 16; TEMP 35.8; O2SAT 96
[2024-03-13] MEDS: HYDROcodone/acetaminophen (*CRX) 5-325 MG TABLET 1 TAB PO ×4 (03:06→17:47)
[2024-03-13] MEDS: LEVOTHYROXINE SODIUM 100 MCG TABLET 200 MCG PO (05:28)
[2024-03-13 06:00] VITALS: BP 122/54; PULSE 53; RESP 16; TEMP 35.9; O2SAT 96
--- NOTE | 2024-03-13 08:03 | PM.IMPN ---
Progress Note: A&P Assessment and Plan (1) Generalized weakness: Code(s): R53.1 - Weakness Status: Acute Assessment and Plan: Limited mobility at baseline due to bone on bone arthritis in her right knee and according to her daughter she really only leaves her bedroom to go to the bathroom and back. The last several days she has been feeling increasingly weak from baseline and she was so weak prior to admission that she could not even get herself up off of the toilet. - Viral panel: Covid positive - UA unremarkable - Chest XR: Mild interstitial edema versus senescent/interstitial change. - PT/OT PT/OT was recommending SNF, however patient was against placement- but agreeable now awaiting placement continue working with PT/OT (2) COVID-19: Code(s): U07.1 - COVID-19 Status: Acute Assessment and Plan: Reports weakness, generalized malaise, body aches, headache, sore throat, and cough which is occasionally productive of yellow sputum. - Viral panel: Covid positive - Chest XR: Mild interstitial edema versus senescent/interstitial change. - Pt is a candidate for Remdesivir and Dexamethasone, continue treatment according to suggested guidelines. Remdesivir 200 mg IV x1, then 100 mg IV x4 days, dexamethasone 6 mg IV daily x 10 days, or until discharge. Completed course during admission. - Bronchodilators - Currently on her baseline oxygen supplementation of 2L NC. Oxygen via NC; wean as tolerated. Keep spO2 greater than 91% - Off COVID19 isolation precautions as she was isolated for the required days - cardiac monitoring, and continuous pulse ox - Monitor serum electrolytes, CRP, Lactic acid, troponin, CBC, WBC, temperature curve and follow cultures IS ordered- needs a lot of encouragement to use (3) Headache: Code(s): R51.9 - Headache, unspecified Status: Acute Assessment and Plan: Patient endorsing a headache that worsens with neck movement. She states that she has had falls in the past, unable to state when her most recent fall was. Not on any anticoagulation. Neuro exam negative. - Head CT: Normal aging brain. No acute intracranial process. - C spine CT: Stable mild cervical spondylosis. Anterior fusion procedure from C4-C7. - analgesics (4) Chronic respiratory failure with hypoxia, on home oxygen therapy: Code(s): J96.11 - Chronic respiratory failure with hypoxia; Z99.81 - Dependence on supplemental oxygen Status: Acute Assessment and Plan: Remains on baseline 2 L NC. Stable (5) Chronic obstructive pulmonary disease: Code(s): J44.9 - Chronic obstructive pulmonary disease, unspecified Status: Acute Assessment and Plan: Chronic, does not appear in acute exacerbation. - Monitor (6) Chronic kidney disease, stage 4 (severe): Code(s): N18.4 - Chronic kidney disease, stage 4 (severe) Status: Acute Assessment and Plan: Follows with nephrology, Dr. Penaloza. Last seen 12/17/23. AV shunt placement was attempted for possible dialysis, however this failed. - BUN/Cr on am labs - Continue to monitor renal function - Avoid nephrotoxic medications - Renally dose medications (7) Hypothyroidism, unspecified: Qualifiers: Hypothyroidism type: unspecified Qualified Code(s): E03.9 - Hypothyroidism, unspecified Code(s): E03.9 - Hypothyroidism, unspecified Status: Acute Assessment and Plan: Chronic, continue home medications - Synthroid 200 mg daily, dose last adjusted on 02/26 by PCP (8) Hypertension: Code(s): I10 - Essential (primary) hypertension Status: Acute Assessment and Plan: Chronic, continue home medications - propranolol 60 mg daily - lasix 40 mg daily - spironolactone 50 mg daily - monitor (9) Hyperlipidemia, unspecified: Qualifiers: Hyperlipidemia type: mixed hyperlipidemia Qualified Code(s): E78.2 - Mixed hyperlipidemia Code(s): E78.5 - Hyperlipidemia, unspecified Status: Acute Assessment and Plan: Chronic, continue home medications - rosuvastatin 20 mg daily Subjective Date/time seen: 03/13/24 08:03 Interval history: 73-year-old female with chronic hypoxic respiratory failure on home oxygen, chronic obstructive pulmonary disease, chronic kidney disease stage 4, hypertension, hyperlipidemia, arthritis, hypothyroidism, and other comorbidities who presented to the emergency department via EMS from home for evaluation of weakness. Review of Systems Review of Systems: All systems reviewed & are unremarkable except as noted in HPI and below Exam Narrative: AF HR General: female in no acute respiratory distress who is nontoxic appearing, lying semi recumbent in bed. HEENT: Normocephalic. Atraumatic. Extraocular movement intact. Sclera clear and anicteric. No facial asymmetry. Chest: Lungs are diminished to auscultation bilaterally. No crackles or wheezes. CV: Heart was regular rate and rhythm. S1-S2. No murmurs, gallops, or rubs. Abd: Abdomen was soft. Nontender. Nondistended. Positive bowel sounds. No organomegaly or masses. Ext: No clubbing, cyanosis, or edema. 2+ DP pulses bilaterally. Neuro: Patient is alert and oriented x4. Cranial nerves 2-12 are intact. Speech is clear. Objective Data Vital Signs Vital Signs: Vital Signs - 24 hr 03/12/24 14:00 03/12/24 20:00 03/12/24 21:11 Temperature 97.6 F Pulse Rate 69 64 Respiratory Rate 16 Blood Pressure 154/71 H Pulse Oximetry 98 96 Oxygen Delivery Nasal Cannula Oxygen Flow Rate 1.5 03/12/24 22:00 03/13/24 06:00 Temperature 96.5 F L 96.7 F L Pulse Rate 60 53 L Respiratory Rate 16 16 Blood Pressure 147/66 H 122/54 L Pulse Oximetry 96 96 Oxygen Delivery Oxygen Flow Rate Intake/Output Intake/Output: Intake & Output 03/10/24 03/11/24 03/12/24 03/13/24 23:59 23:59 23:59 23:59 Intake Total 7672 1880 2150 Output Total 650 900 550 550 Balance 7022 980 1600 -550 Meds/Results Medications: Active Medications Generic Name Dose Route Start Last Admin Trade Name Freq PRN Reason Stop Dose Admin Acetaminophen 650 mg 03/02/24 18:39 03/02/24 19:04 Acetaminophen 325 Mg Tablet PO 650 mg Q4H PRN Administration Mild Pain (1-3) or Fever Hydrocodone Bitart/Acetaminophen 1 tab 03/02/24 18:39 03/13/24 03:06 Hydrocodone/Acetaminophen (*Crx) 5-325 Mg Tablet PO 1 tab Q4H PRN Administration Pain Rated 4-6 Benzocaine 1 lozenge 03/04/24 11:47 03/04/24 12:16 Benzocaine/Menthol (*Bkc) 18 Ea Lozenge PO 1 lozenge PRN PRN Administration Sore Throat Calcitriol 0.25 mcg 03/02/24 20:00 Calcitriol 0.25 Mcg Capsule PO MoWeFr PRN AFTER DIALYSIS Calcium Carbonate 200 mg 03/03/24 09:00 03/12/24 08:54 Calcium Carbonate (Tums) 500 Mg (200 Mg Elemental) PO 200 mg DAILY QUINTON Administration Enoxaparin Sodium 40 mg 03/03/24 09:00 03/12/24 08:54 Enoxaparin 40 Mg/0.4 Ml Syringe SUB-Q 40 mg DAILY QUINTON Administration Furosemide 40 mg 03/03/24 09:00 03/12/24 08:54 Furosemide 40 Mg Tablet PO 40 mg QAM QUINTON Administration Guaifenesin/Dextromethorphan 5 ml 03/04/24 14:11 Guaifenesin/Dextromethorphan 10 Ml Udc PO Q4H PRN Cough Levothyroxine Sodium 200 mcg 03/03/24 06:30 03/13/24 05:28 Levothyroxine Sodium 100 Mcg Tablet PO 200 mcg DAILY@0630 QUINTON Administration Loratadine 10 mg 03/03/24 09:00 03/12/24 08:54 Loratadine 10 Mg Tablet PO 10 mg QAM QUINTON Administration Multivitamins/Calcium 1 tablet 03/03/24 09:00 03/12/24 08:54 Therapeutic Multivitamins/Minerals Tab (*Bkc) PO 1 tablet DAILY QUINTON Administration Pregabalin 200 mg 03/03/24 09:00 03/12/24 16:37 Pregabalin (*Crx) 50 Mg Capsule PO 200 mg BID QUINTON Administration Primidone 50 mg 03/03/24 09:00 03/12/24 16:37 Primidone 50 Mg Tablet PO 50 mg BID QUINTON Administration Propranolol HCl 60 mg 03/02/24 21:35 03/12/24 21:11 Propranolol Hcl 60 Mg Capsule Cr PO 60 mg Q12HR QUINTON Administration Rosuvastatin Calcium 20 mg 03/03/24 09:00 03/12/24 08:54 Rosuvastatin 20 Mg Tablet PO 20 mg DAILY QUINTON Administration Spironolactone 50 mg 03/03/24 09:00 03/12/24 08:54 Spironolactone 50 Mg Tablet PO 50 mg DAILY QUINTON Administration Vitamin D 2,000 units 03/03/24 09:00 03/12/24 08:54 Cholecalciferol 1,000 Units Tablet PO 2,000 units DAILY QUINTON Administration Radiology Results: ITS Impressions Chest X-Ray 03/02/24 17:44 IMPRESSION: Mild interstitial edema versus senescent/interstitial change. Head CT 03/03/24 15:36 IMPRESSION: 1. Normal aging brain. No acute intracranial process. Cervical Spine CT 03/03/24 16:53 IMPRESSION: 1. Stable mild cervical spondylosis. 2. Anterior fusion procedure from C4 to C7. Quality VTE Prophylaxis VTE prophylaxis: pharmacologic ordered
[2024-03-13 08:39] VITALS: BP 136/76; PULSE 56; RESP 16; O2SAT 97
[2024-03-13] MEDS: PREGABALIN (*CRX) 50 MG CAPSULE 200 MG PO ×2 (08:40→17:21)
[2024-03-13] MEDS: CHOLECALCIFEROL 1,000 UNITS TABLET 2000 UNITS PO (08:40)
[2024-03-13 08:41] VITALS: PULSE 56; O2SAT 97
[2024-03-13] MEDS: SPIRONOLACTONE 50 MG TABLET PO (08:41)
[2024-03-13] MEDS: PRIMIDONE 50 MG TABLET PO ×2 (08:41→17:21)
[2024-03-13] MEDS: FUROSEMIDE 40 MG TABLET PO (08:41)
[2024-03-13] MEDS: THERAPEUTIC MULTIVITAMINS/MINERALS TAB (*BKC) 1 TABLET PO (08:41)
[2024-03-13] MEDS: PROPRANOLOL HCL 60 MG CAPSULE CR PO (08:41)
[2024-03-13] MEDS: LORATADINE 10 MG TABLET PO (08:42)
[2024-03-13] MEDS: ENOXAPARIN 40 MG/0.4 ML SYRINGE SUB-Q (08:42)
[2024-03-13] MEDS: CALCIUM CARBONATE (TUMS) 500 MG (200 MG ELEMENTAL) PO (08:42)
[2024-03-13] MEDS: ROSUVASTATIN 20 MG TABLET PO (08:42)
[2024-03-13 09:22] LABS: Hematocrit 43.2 % (37.0-47.0); Hemoglobin 13.6 g/dL (12.0-15.0); Mean Corpuscular HGB Conc 31.5 g/dl (32-36); Mean Corpuscular Hemoglobin 30.6 pg (26-34); Mean Corpuscular Volume 97.3 fl (80-100); Platelet Count Result 175 k/mm3 (150-375); Red Blood Count 4.44 M/mm3 (4.2-5.4); Red Cell Distribution Width 13.4 % (11.5-14.5); White Blood Count 4.9 K/mm3 (4.5-10.0)
[2024-03-13 09:33] LABS: Alanine Aminotransferase 49 U/L (6-35); Albumin Level 3.3 g/dL (3.5-5.1); Alkaline Phosphatase 67 U/L (38-126); Anion Gap -2 mmol/L (4-12); Aspartate Amino Transferase 39 U/L (14-36); Bilirubin,Total 0.5 mg/dL (0.2-1.3); Blood Urea Nitrogen 43 mg/dL (7-17); Calcium 10.3 mg/dL (8.4-10.2); Carbon Dioxide 36 mmol/L (22-30); Chloride 102 mmol/L (98-107); Estimated CRCL calculation 32 ml/min; Estimated Glomerular Filt Rate 26; Glucose 110 mg/dL (65-110); Potassium 4.4 mmol/L (3.4-5.0); Sodium 136 mmol/L (137-145)
[2024-03-13 09:41] VITALS: TEMP 35.9
[2024-03-13 13:25] VITALS: BP 104/46; PULSE 62; RESP 18; TEMP 36.2; O2SAT 96
--- NOTE | 2024-03-13 14:14 | P.DS_ITS ---
DS: Admitting Diagnosis Discharge Date 03/13/2024 Admitting Diagnosis Generalized weakness Covid Headache Chronic respiratory failure COPD CKD Hypothyroidism HTN HLD DS: Discharge Diagnosis Discharge Diagnosis (1) Generalized weakness: Code(s): R53.1 - Weakness Status: Acute (2) COVID-19: Code(s): U07.1 - COVID-19 Status: Acute (3) Headache: Code(s): R51.9 - Headache, unspecified Status: Acute (4) Chronic respiratory failure with hypoxia, on home oxygen therapy: Code(s): J96.11 - Chronic respiratory failure with hypoxia; Z99.81 - Dependence on supplemental oxygen Status: Acute (5) Chronic obstructive pulmonary disease: Code(s): J44.9 - Chronic obstructive pulmonary disease, unspecified Status: Acute (6) Chronic kidney disease, stage 4 (severe): Code(s): N18.4 - Chronic kidney disease, stage 4 (severe) Status: Acute (7) Hypothyroidism, unspecified: Qualifiers: Hypothyroidism type: unspecified Qualified Code(s): E03.9 - Hypothyroidism, unspecified Code(s): E03.9 - Hypothyroidism, unspecified Status: Acute (8) Hypertension: Code(s): I10 - Essential (primary) hypertension Status: Acute (9) Hyperlipidemia, unspecified: Qualifiers: Hyperlipidemia type: mixed hyperlipidemia Qualified Code(s): E78.2 - Mixed hyperlipidemia Code(s): E78.5 - Hyperlipidemia, unspecified Status: Acute DS: Summary Hospital Course Reason for hospitalization: Generalized weakness Covid Headache Chronic respiratory failure COPD CKD Hypothyroidism HTN HLD Hospital Course: 73-year-old female with chronic hypoxic respiratory failure on home oxygen, chronic obstructive pulmonary disease, chronic kidney disease stage 4, hypertension, hyperlipidemia, arthritis, hypothyroidism, and other comorbidities who presented to the hospital via EMS from home for evaluation of weakness, generalized malaise, body aches, headache, sore throat, and cough which is occasionally productive of yellow sputum. Viral panel positive for covid. Chest XR showed mild interstitial edema versus senescent/interstitial change. Pt was a candidate for Remdesivir and Dexamethasone, treatment given according to suggested guidelines. Remdesivir 200 mg IV x1, then 100 mg IV x4 days, dexamethasone 6 mg IV daily x 10 days, or until discharge. Completed course during admission. Throughout admission patient remained on her home oxygen supplementation. Patient was endorsing a severe headache during admission and noted that she had a fall in the past. Though she was not on any anticoagulation a head Ct was obtained and findings were unremarkable. Also obtained a CT C spine which showed stable mild cervical spondylosis with anterior fusion procedure from C4-C7. These headaches resolved during admission. Patient was working with therapy during admission who was originally recommending SNF, however patients ambulatory abilities continued to improve and insurance denied placement. Peer to peer done with patients insurance prior to discharge and they continue to deny placement. Discussed with patient and she is okay to go home with home health instead. At time of discharge patient has no complaints denying chest pain, shortness of breath, palpitations, nausea/vomiting, abdominal pain, headaches, lightheadedness and dizziness. Patient discharged home with home health in stable condition. She is to follow up with her PCP in 1 week. Status at Discharge Functional status at discharge: uses cane/walker Time Spent with Patient Time attestation: Total time spent providing and/or coordinating discharge services: Time spent: Greater than 30 minutes Exam Narrative: AF HR 62 RR 18 SPO2 96 2L NC (baseline) BP 104/46 General: female in no acute respiratory distress who is nontoxic appearing, lying semi recumbent in bed. HEENT: Normocephalic. Atraumatic. Extraocular movement intact. Sclera clear and anicteric. No facial asymmetry. Chest: Lungs are clear to auscultation bilaterally. No crackles or wheezes. CV: Heart was regular rate and rhythm. S1-S2. No murmurs, gallops, or rubs. Abd: Abdomen was soft. Nontender. Nondistended. Positive bowel sounds. No organomegaly or masses. Ext: No clubbing, cyanosis, or edema. 2+ DP pulses bilaterally. Neuro: Patient is alert and oriented x4. Cranial nerves 2-12 are intact. Speech is clear. DS: Data Data Completed and Pending Completed studies during hospitalization: c spine ct head ct chest xr Labs on day of discharge: Labs from last 24 hours 03/13/24 08:59 WBC 4.9 RBC 4.44 Hgb 13.6 Hct 43.2 MCV 97.3 MCH 30.6 MCHC 31.5 L RDW 13.4 Plt Count 175 MPV 11.0 H Sodium 136 L Potassium 4.4 Chloride 102 Carbon Dioxide 36 H Anion Gap -2 L BUN 43 H Creatinine 1.90 H Estim Creat Clear Calc 32 Estimated GFR 26 L Glucose 110 Calcium 10.3 H Total Bilirubin 0.5 AST 39 H ALT 49 H Alkaline Phosphatase 67 Total Protein 6.0 L Albumin 3.3 L Discharge Plan Discharge Attending physician on discharge: Maine Rosales Discharging Clinician: Cecelia Archer Anticipated Discharge Date/Time: 03/13/24 14:10 Patient Disposition: Home Health Service Activity: as tolerated Diet: as tolerated and heart healthy Discharge Instructions: Discharge disposition: Patient admitted to the hospital for weakness and covid Completed her course of steroids during admission Continue home oxygen supplementation as prescribed Follow up with pulmonology as scheduled Worked with therapy throughout admission Plan to return to home with home health [facility] [phone] has been arranged for PT/OT eval and treat, and long-term. They will call you regarding your first visit. RN - please fax discharge orders to [phone] Take medications as prescribed Monitor blood pressures Take caution while standing, rising, or moving Change positions slowly taking a break between each position change If you standing feel dizzy sat back down and take a break Eat well balanced meals and stay hydrated Keep active to remain strong Trend urine output Encouraged to continue with yearly vaccinations Return to the emergency department if he developed sudden shortness of breath, chest pain, nausea, vomiting, upset stomach or intractable diarrhea Return to the emergency department if you develop fever greater than 101.5 Follow-up with the primary care physician within 1-2 weeks Thank you for choosing [facility] for your healthcare needs Patient Instructions: Antibiotic Form, Pain Management (DC), Using Oxygen at Home (DC), COVID-19 (Coronavirus Disease 2019) (DC) Patient Language: Ivorian Stand Alone Forms: General Discharge Information Follow-up/Referrals: Gaudencio Miranda MD [Primary Care Provider] - 1 Week Discharge Medications: Continued cholecalciferol (vitamin D3) 50 mcg (2,000 unit) capsule 50 mcg PO DAILY One-A-Day Women's 50 Plus 400-20 mcg tablet 1 tablet PO DAILY fexofenadine [Antonina Allergy] 60 mg tablet 60 mg PO DAILY Rx Instructions: 1/2 tablet BID calcium carbonate [Tums] 200 mg calcium (500 mg) tablet,chewable 200 mg PO DAILY Neuriva Plus Brain Performance 1.7 mg-400 mcg- 2.4 mcg capsule 1 cap PO DAILY levothyroxine 200 mcg tablet 200 mcg PO DAILY Qty: 100 1RF calcitriol 0.25 mcg capsule 0.25 mcg PO 3XW Qty: 45 3RF Rx Instructions: administer after dialysis on dialysis days -- propranolol 60 mg tablet 60 mg PO Q12H Qty: 180 1RF rosuvastatin 20 mg tablet 20 mg PO DAILY Qty: 90 1RF primidone 50 mg tablet 50 mg PO BID Qty: 180 1RF spironolactone 50 mg tablet 50 mg PO DAILY Qty: 90 1RF pregabalin 200 mg capsule 200 mg PO BID Qty: 180 0RF duloxetine 60 mg capsule,delayed release(DR/EC) 60 mg PO DAILY Qty: 90 1RF hydrocodone-acetaminophen 5-325 mg tablet 1 tablet PO Q6H PRN (Reason: pain) Qty: 120 0RF furosemide 40 mg tablet 40 mg PO QAM Qty: 90 1RF Date of admission: 03/04/24 15:34 Primary Care Provider: Gaudencio Miranda Admitting Provider: Christoph Welch Attending physician on admission: Cecelia Archer Condition: Stable Hospitalist MIPS Heart Failure (Exclusion) Patient has history of Heart Transplant or Left Ventricular Assistive Device?: No IF YES, STOP HERE Heart Failure (Qualifier) Patient has current or prior documentation of LVEF less than or equal to 40%, or mod/servere depressed LVSF?: No IF NO, STOP HERE
[2024-03-13] MEDS: ACETAMINOPHEN 325 MG TABLET 650 MG PO (17:20)
[2024-03-13] MEDS: CAFFEINE 200 MG TABLET PO (17:21)
== END 2024-03-13 18:20 | disposition home health service (06) | DRG 178 ==
LOC: ANHED 19:03 → ANH2MED 19:07
PROVIDERS: Nurse Practitioner; Physician Assistant; Student in an Organized Health Care Education/Training Program; Admitting Provider Internal Medicine; Emergency Provider Emergency Medicine; PCP Family Medicine; Visit Provider Internal Medicine
DX: U07.1 COVID-19 (principal); J96.11 Chronic respiratory failure with hypoxia; N18.4 Chronic kidney disease, stage 4 (severe); Z68.41 Body mass index [BMI] 40.0-44.9, adult; E55.9 Vitamin D deficiency, unspecified; E66.01 Morbid (severe) obesity due to excess calories; E03.9 Hypothyroidism, unspecified; E78.2 Mixed hyperlipidemia; I12.9 Hypertensive chronic kidney disease with stage 1 through stage 4 chronic kidney disease, or unspecified chronic kidney disease; J44.9 Chronic obstructive pulmonary disease, unspecified; K21.9 Gastro-esophageal reflux disease without esophagitis; K74.60 Unspecified cirrhosis of liver; M47.812 Spondylosis without myelopathy or radiculopathy, cervical region; M17.0 Bilateral primary osteoarthritis of knee; Z99.81 Dependence on supplemental oxygen; Z98.1 Arthrodesis status; Z87.891 Personal history of nicotine dependence
CPT/HCPCS: 36415; 70450; 71045; 72125; 80048; 80053; 80076; 81003; 82248; 82728; 83605; 83615; 83735; 83880; 84145; 84439; 84443; 84484; 85025; 85027; 85055; 85610; 85730; 86140; 87637; 93005; 96366; 96372; 97110; 97162; 97165; 97530; 97535; 99285; A9270; G0378; J0248; J1650; J8540

== ENCOUNTER 2024-04-07 09:38 | Emergency (ER) | payer MEDICARE, SELFPAY ==
[2024-04-07 10:01] VITALS: BP 131/62; PULSE 77; RESP 16; TEMP 37.4; O2SAT 91
--- NOTE | 2024-04-07 10:34 | ED.GENADULT ---
HPI - General Adult General Chief complaint: Animal Bite Stated complaint: Cat Bite Time Seen by Provider: 04/07/24 10:26 Source: patient, family and RN notes reviewed Mode of arrival: ambulatory Limitations: no limitations History of Present Illness HPI narrative: Daughter presents patient today complaining of a cat bite to the dorsum of her right wrist that occurred approximately 2 days ago. Patient just informed daughter of it this morning. The bite has some surrounding redness that has been worsening since onset. Patient denies numbness or tingling, fever. She has tried nothing tbon-tmn-kjhrnib prior to arrival. Patient's cat is an indoor cat. Related Data Home Medications ?Medication ?Instructions ?Recorded ?Confirmed ?Last Taken ?Type calcium carbonate (Tums) 200 mg PO DAILY 06/05/22 03/17/24 Unknown History cholecalciferol (vitamin D3) 50 50 mcg PO DAILY 06/05/22 03/17/24 Unknown History mcg (2,000 unit) capsule fexofenadine 60 mg tablet (Antonina 60 mg PO DAILY 06/05/22 03/17/24 Unknown History Allergy) drnniadlijow-ajmozjxh-ayxxpcb-folic 1 tablet PO DAILY 06/05/22 03/17/24 Unknown History acid 400 mcg-vit K1 20 mcg tablet (One-A-Day Women's 50 Plus) B6 1.7 mg-folic 400 mcg-B12 2.4 1 cap PO DAILY 01/01/23 03/17/24 Unknown History elr-bxdjak-taemetkipdai oral capsule (Neuriva Plus Brain Performance) Allergies Allergy/AdvReac Type Severity Reaction Status Date / Time dobutamine Allergy Intermediate SEVERE Verified 04/07/24 10:24 PAIN IN THE HEAD latex Allergy Intermediate RASH Verified 04/07/24 10:24 aspirin Allergy Mild CHOKING Verified 04/07/24 10:24 FEELING , CHEST TIGHTNESS Sulfa (Sulfonamide Allergy Mild HIVES Verified 04/07/24 10:24 Antibiotics) peanut Allergy Unknown THROAT Verified 04/07/24 10:24 SWELLING Review of Systems Review of Systems: CONSTITUTIONAL: Denies body aches, fever, chills, or sweats. EYES: Denies visual changes, redness, or discharge. ENT: Denies rhinorrhea, congestion, sore throat, or otalgia. CARDIOVASCULAR: Denies chest pain, palpitations, or edema. RESPIRATORY: Denies cough or dyspnea. GASTROINTESTINAL: Denies abdominal pain, nausea, vomiting, or diarrhea. GENITOURINARY: Denies dysuria or hematuria. SKIN: + cat bite MUSCULOSKELETAL: Denies back pain, joint pain, or myalgia. NEUROLOGIC: Denies headache, numbness, tingling, or weakness. PSYCH: Denies depression or anxiety. [facility] Past Medical History Medical History Restless leg syndrome Secondary hyperparathyroidism, not elsewhere classified Chronic obstructive pulmonary disease Chronic respiratory failure with hypoxia, on home oxygen therapy Unspecified cirrhosis of liver Vitamin D deficiency, unspecified Pure hypercholesterolemia, unspecified Age-related osteoporosis without current pathological fracture Osteoarthritis of knees, bilateral Allergic rhinitis, unspecified Gastro-esophageal reflux disease without esophagitis Migraine, unspecified, not intractable, with status migrainosus Atherosclerosis of aorta Morbid obesity Essential tremor Primary generalized (osteo)arthritis Fibromyalgia Major depressive disorder, recurrent, in partial remission Hyperlipidemia, unspecified Hypothyroidism, unspecified Coagulation defect, unspecified Hepatic steatosis Chronic kidney disease, stage 4 (severe) Other intervertebral disc degeneration, lumbar region Surgical History Surgical History History of partial hysterectomy History of cervical spinal surgery Family History Family History Father Cancer Sibling Cancer Heart attack Social History Social History Social History: Healthcare power of mirror silverer: Arin Rahman, daughter. Code status: Full code. Smoking packs per day: 2 Smoking cigarettes per day: 40.0 Years smoked: 50 Smoking pack-years: 100.00 Smoking status: Former smoker Tobacco type: cigarettes Second hand tobacco smoke exposure: No Alcohol intake: never Substance use: never Substance use type: does not use Do You Feel Safe in your Home?: Yes Lack of Transportation: No Lack of Food: Never True Current Housing: I Have Housing Concerned About Future Housing: No Difficulty Paying Gas/Electric Bills: No Difficulty Paying for Meds: No Currently Unemployed: YES Education: High School Diploma/GED Difficulty w/ Childcare or Family Care: No Living arrangements: with family Occupation/Education: unemployed Spiritual care concerns: No Comments At time of signature, I have reviewed and agree with nursing past medical, surgical, social and family history unless otherwise noted. Please see nursing chart for further information. There is no relevant family history pertinent to the presenting complaint Exam Narrative: GENERAL: Chronically ill-appearing, well-nourished, and in no acute distress. HEAD: Normocephalic, atraumatic. EYES: EOMI. No redness or drainage. Conjunctivae normal. ENT: Mucous membranes pink and moist. NECK: Normal AROM. CHEST: No respiratory distress. EXTREMITIES: Normal range of motion. No edema. SKIN: Warm, dry, no rash. Capillary refill normal. Normal skin turgor. 5 x 7 cm area of erythema to the dorsum of the right wrist without induration or edema. Tender to palpation. There is some faint red streaking up the forearm measuring approximately 7 cm. Few puncture wounds to the area of erythema. Distal sensation intact. Capillary refill normal. Radial pulse normal. Full range of motion of the wrist with increased pain. NEURO: No focal deficits. Alert and oriented x3. Gait steady. PSYCH: Normal affect. No signs of depression or anxiety. Course Course Level of Care: Express Care Visit Vital Signs Vital signs: Vital Signs Temperature 99.3 F 04/07/24 10:01 Pulse Rate 77 04/07/24 10:01 Respiratory Rate 16 04/07/24 10:01 Blood Pressure 131/62 04/07/24 10:01 Pulse Oximetry 91 04/07/24 10:01 Oxygen Delivery Room Air 04/07/24 10:01 Temperature 99.3 F 04/07/24 10:01 Pulse Rate 77 04/07/24 10:01 Respiratory Rate 16 04/07/24 10:01 Blood Pressure 131/62 04/07/24 10:01 Pulse Oximetry 91 04/07/24 10:01 Oxygen Delivery Room Air 04/07/24 10:01 Reviewed. Patient is supposed to be on oxygen at home but did not bring it with her. States 91% on room air is good for her. Medical Decision Making MDM Narrative Medical decision making narrative: Patient will be placed on Augmentin for her infected cat bite. At this time, patient is not running a fever or have other systemic symptoms, but daughter has been instructed to monitor for any worsening redness, fever etc. and take patient to the ER immediately if anything worsens. Differential Diagnosis Differential Diagnosis: Cat bite, cellulitis, abscess Vital Signs Vital Signs: Vital Signs Temperature 99.3 F 04/07/24 10:01 Pulse Rate 77 04/07/24 10:01 Respiratory Rate 16 04/07/24 10:01 Blood Pressure 131/62 04/07/24 10:01 Pulse Oximetry 91 04/07/24 10:01 Oxygen Delivery Room Air 04/07/24 10:01 Temperature 99.3 F 04/07/24 10:01 Pulse Rate 77 04/07/24 10:01 Respiratory Rate 16 04/07/24 10:01 Blood Pressure 131/62 04/07/24 10:01 Pulse Oximetry 91 04/07/24 10:01 Oxygen Delivery Room Air 04/07/24 10:01 Critical Care Time Critical Care Time Critical Care Time: No Discharge Plan Discharge Clinical Impression: Cat bite of hand Patient Disposition: Home, Self-Care Condition: Stable Instructions: Antibiotic Form, Animal Bite (ED) Additional Instructions: Please take the Augmentin as prescribed until gone. Take Tylenol for pain if needed. As discussed, if symptoms worsen or you develop a fever greater than 100.3, please go to the ER immediately for further evaluation and treatment. Your blood pressure was elevated above 120/80 today at Urgent Care. This puts you above the threshold for follow up. Please schedule a followup visit with your personal physician as soon as possible, for further evaluation and treatment. Even blood pressure exceeding 120/80 may indicate pre-hypertension. Patient Language: Hebrew Prescriptions: New amoxicillin-pot clavulanate 875-125 mg tablet 1 tablet PO Q12H 10 Days Qty: 20 0RF No Action cholecalciferol (vitamin D3) 50 mcg (2,000 unit) capsule 50 mcg PO DAILY One-A-Day Women's 50 Plus 400-20 mcg tablet 1 tablet PO DAILY fexofenadine [Antonina Allergy] 60 mg tablet 60 mg PO DAILY Rx Instructions: 1/2 tablet BID calcium carbonate [Tums] 200 mg calcium (500 mg) tablet,chewable 200 mg PO DAILY Neuriva Plus Brain Performance 1.7 mg-400 mcg- 2.4 mcg capsule 1 cap PO DAILY levothyroxine 200 mcg tablet 200 mcg PO DAILY Qty: 100 1RF ropinirole 1 mg tablet 1 mg PO QHS Qty: 90 1RF calcitriol 0.25 mcg capsule 0.25 mcg PO 3XW Qty: 45 3RF Rx Instructions: administer after dialysis on dialysis days -W- spironolactone 50 mg tablet 50 mg PO DAILY Qty: 90 1RF duloxetine 60 mg capsule,delayed release(DR/EC) 60 mg PO DAILY Qty: 90 1RF furosemide 40 mg tablet 40 mg PO QAM Qty: 90 1RF pregabalin 200 mg capsule 200 mg PO BID Qty: 180 0RF hydrocodone-acetaminophen 5-325 mg tablet 1 tablet PO Q6H PRN (Reason: pain) Qty: 120 0RF rosuvastatin 20 mg tablet 20 mg PO DAILY Qty: 90 1RF propranolol 60 mg tablet 60 mg PO Q12H Qty: 180 1RF primidone 50 mg tablet 50 mg PO BID Qty: 180 1RF Follow-up/Referrals: Gaudencio Miranda MD [Primary Care Provider] - Time of Disposition: 10:35
== END 2024-04-07 10:37 | disposition home or self-care (01) ==
PROVIDERS: Emergency Provider Nurse Practitioner; PCP Family Medicine
DX: S61.531A Puncture wound without foreign body of right wrist, initial encounter (principal); W55.01XA Bitten by cat, initial encounter; G25.81 Restless legs syndrome; J44.9 Chronic obstructive pulmonary disease, unspecified; E78.00 Pure hypercholesterolemia, unspecified; M81.0 Age-related osteoporosis without current pathological fracture; K21.9 Gastro-esophageal reflux disease without esophagitis; I70.0 Atherosclerosis of aorta; M79.7 Fibromyalgia; E03.9 Hypothyroidism, unspecified; K76.0 Fatty (change of) liver, not elsewhere classified; M17.0 Bilateral primary osteoarthritis of knee; N18.4 Chronic kidney disease, stage 4 (severe); M51.369 Other intervertebral disc degeneration, lumbar region without mention of lumbar back pain or lower extremity pain; Z90.711 Acquired absence of uterus with remaining cervical stump; E66.01 Morbid (severe) obesity due to excess calories; Z68.41 Body mass index [BMI] 40.0-44.9, adult; N25.81 Secondary hyperparathyroidism of renal origin; E55.9 Vitamin D deficiency, unspecified; Z87.891 Personal history of nicotine dependence
CPT/HCPCS: 99213; G0463

== ENCOUNTER 2024-04-11 13:05 | Emergency (ER) | payer MEDICARE, SELFPAY ==
--- NOTE | ~2024-04-11 | XR_ITS ---
EXAMINATION: XR hip BI 2V w AP pelvis DATE: 04/11/2024 15:14 INDICATION: Pelvic pain post fall TECHNIQUE: Anteroposterior view of the pelvis and anteroposterior and frog-leg lateral views of the l eft hip and anteroposterior and frog-leg lateral views of the right hip and were obtained. COMPARISON: CT dated 03/29/2015 FINDINGS: Bone alignment is normal. No fracture. Mild osteoarthritis at the bilateral hip and sacroiliac joints . Moderate to severe lower lumbar spondylosis with change of prior L5-S1 anterior spinal fusion with interbody bone graft cages and anterior plate and screw fixation. Couple additional surgical clips pr oject over the left hemipelvis. IMPRESSION: 1. No acute osseous abnormality. 2. Moderate to severe lower lumbar spondylosis with instrumented L5-S1 anterior spinal fusion. 3. Mild bilateral hip and sacroiliac osteoarthritis. Reviewed, dictated and finalized at location A. E CARE MANAGER
--- NOTE | ~2024-04-11 | XR_ITS ---
EXAMINATION: XR forearm LT 2V DATE: 04/11/2024 15:14 INDICATION: Left forearm laceration and pain. Fall. TECHNIQUE: 2 views of left forearm were obtained. COMPARISON: None. FINDINGS: Alignment is normal. No fracture. Joint spaces are normal. No elbow joint effusion. There a re surgical clips in the antecubital fossa. IMPRESSION: 1. No fracture. Reviewed, dictated and finalized at location B. D RENOWNED CHEF AND RESTAURANT OWNER IMPRESSION: 1. No fracture.
--- NOTE | ~2024-04-11 | CT_ITS ---
EXAMINATION: CT thoracic lumbar wo con DATE: 04/11/2024 14:54 INDICATION: Back injury. Fall. TECHNIQUE: Computed tomography (CT) of the thoracic and lumbar spine was performed without intravenou s contrast. Automated exposure control and iterative reconstruction technique were employed. The dose -length product was 2000.49 mGy-cm. COMPARISON: None FINDINGS: CT THORACIC SPINE: There is right-sided pleural thickening. There is rounded atelectasis in right low er lobe. A calcified right lung nodule and calcified right hilar and mediastinal lymph nodes are cons istent with old granulomatous disease. There is 3 degrees dextrocurvature of thoracic spine. Vertebra l body heights are normal. There is mildly decreased disc height at many levels. There is multilevel facet joint osteoarthritis, mild at most levels. No neural foraminal stenosis. There is mild central canal stenosis at T10-T11. CT LUMBAR SPINE: Alignment is normal. L5 is a transitional segment. There are changes of anterior fus ion procedure at L4-L5 with interbody devices and healed interbody bone graft, and anterior plate and screws. Vertebral body heights are normal. There is severely decreased disc height at L1-L2, moderat mei decreased disc height at L2-L3, and severely decreased disc height at L3-L4. The following disc l evels are specifically discussed: L1-L2: The disc is bulging. There is severe bilateral facet joint osteoarthritis. There is mild bilat eral neural foraminal stenosis. There is mild central canal stenosis. L2-L3: The disc is bulging. There is severe right and moderate left facet joint osteoarthritis. There is mild bilateral neural foraminal stenosis. There is mild central canal stenosis. L3-L4: The disc is bulging. There is severe bilateral facet joint osteoarthritis. There is mild bilat eral neural foraminal stenosis. There is mild central canal stenosis. L4-L5: There is severe bilateral facet joint osteoarthritis. There is mild bilateral neural foraminal stenosis. There is no central canal stenosis. L5-S1: The disc does not extend beyond the endplate margin. There is no facet joint osteoarthritis. T here is no neural foraminal stenosis. There is no central canal stenosis. IMPRESSION: 1. No fracture. 2. Mild thoracic spondylosis and severe lumbar spondylosis. 3. Anterior fusion procedure at L4-L5. Reviewed, dictated and finalized at location B. 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
--- NOTE | ~2024-04-11 | CT_ITS ---
EXAMINATION: CT cervical spine wo con DATE: 04/11/2024 14:53 INDICATION: Neck injury. Fall. TECHNIQUE: Computed tomography (CT) of the cervical spine was performed without intravenous contrast. Automated exposure control and iterative reconstruction technique were employed. The dose-length pro duct was 572.39 mGy-cm. COMPARISON: CT cervical spine 03/03/2024 FINDINGS: There is 12 degrees levoscoliosis of cervical spine. There are changes of anterior fusion p rocedure from C4 to C7 with healed interbody bone graft and anterior plate and screws. Vertebral body heights are normal. There is mildly decreased disc height at C3-C4 and C7-T1. The following disc lev els are specifically discussed: C2-C3: There is mild bilateral uncovertebral joint osteoarthritis. There is severe bilateral facet andrea int osteoarthritis. There is mild left neural foraminal stenosis. There is no central canal stenosis. C3-C4: There is severe bilateral uncovertebral joint osteoarthritis. There is severe bilateral facet joint osteoarthritis. There is mild bilateral neural foraminal stenosis. There is mild central canal stenosis. C4-C5: There is no uncovertebral joint osteoarthritis. There is ankylosis of the facet joints with mi ld hypertrophy. There is no neural foraminal stenosis. There is no central canal stenosis. C5-C6: There is mild bilateral uncovertebral joint hypertrophy. There is no facet joint hypertrophy. There is mild left neural foraminal stenosis. There is no central canal stenosis. C6-C7: There is mild bilateral uncovertebral joint hypertrophy. There is mild bilateral facet joint o steoarthritis. There is mild left neural foraminal stenosis. There is no central canal stenosis. C7-T1: There is mild left uncovertebral joint osteoarthritis. There is severe bilateral facet joint o steoarthritis. There is mild bilateral neural foraminal stenosis. There is no central canal stenosis. IMPRESSION: 1. No fracture. 2. Mild cervical spondylosis. 3. Anterior fusion procedure from C4 to C7. Reviewed, dictated and finalized at location B. 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
--- NOTE | ~2024-04-11 | CT_ITS ---
EXAMINATION: CT brain wo con DATE: 04/11/2024 14:54 INDICATION: Fall with head injury TECHNIQUE: Computed tomography (CT) of the head was performed without intravenous contrast. Sagittal and coronal reconstructions were performed. The mA was adjusted according to patient size. Iterative reconstruction technique was employed. The dose-length product was 605.33 mGy-cm. COMPARISON: head CT dated 03/03/2024 FINDINGS: No fracture. No acute intracranial hemorrhage, acute infarction or abnormal extra axial fluid collect ion. There is mild scattered white matter hypoattenuation consistent with chronic small vessel ischem ic disease. Ventricles are normal and symmetric. No mass/mass effect. Changes of bilateral intraocul ar lens replacement. The orbits, paranasal sinuses and mastoid air cells are normal. IMPRESSION: 1. Normal aging brain with no fracture or acute intracranial process. Reviewed, dictated and finalized at location A. 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
--- OUTSIDE RECORDS SUMMARY | 2024-04-11 13:15 | XMS_ITS | Clinical Summary ---
Author Organization [facility] Address [address] [place] [id number] Phone Care Team Providers Care Retail Area Manager Name Role Phone Gaudencio Miranda MD Primary Care Provider [phone] Allergies Active Allergy Reactions Criticality Noted Date [...] Highest Risk Completed 12/15/2016, 01/12/2014 Care Teams Retail Area Manager Relationship Specialty Start Date End Date Gaudencio Miranda MD [address] [place] [id number] PCP - General Internal Medicine 01/14/19
--- OUTSIDE RECORDS SUMMARY | 2024-04-11 13:15 | XMS_ITS | Clinical Summary ---
Author Organization [facility] Address [address] [place] [address]. [place], [place] [id number] [place] [id number] Care Team Providers Care Devops Name Role Phone Unavailable Primary Care Provider [...] 11/03/1967 Zoster Vaccines (1 of 2) 1998 Dexa Scan (General) 2013 Pneumococcal Vaccine: 65+ Ye ars (1 of 1 - PCV) 2013 RSV Immunization or 60+ Years (1 - 1-dose 75+ series) 11/03/2023 COVID-19 Vaccine ( - 2023-2 5 season) 2023 Influenza Adult (#1) 2023 Meningococcal Vaccine Aged Out No josh bharati eligible based on patient's age to complete this topic RSV Immunizations Under 20 Months Aged Out No longer eligible based on patient's age to complete this topic
--- OUTSIDE RECORDS SUMMARY | 2024-04-11 13:15 | XMS_ITS | Referral Summary ---
Author Organization [facility] Address [address] [place] [address] Care Team Providers Care Development And Planning Engineer Name Role Phone Gaudencio Miranda MD Primary Care Provider [phone] Herberth Rodgers MD Unavailable [phone] Allergies Active Allergy Reactions Criticality Noted [...] ns:Chronic obstructive pulmonary disease, unspecified COPD type ([facility]) Inhale 2 puffs every 4 [...] (12/23/2020): Added automatically from request for surgery [id number] Assessment & Plan (12/27/2020 10:51 AM CDT): [...] care physician. Chronic kidney disease, stage V ([facility]) 2019 Assessment & Plan (03/28/2021 1:41 PM PAVING BLOCK CUTTER): Impression: Patient with recent left brachial cephalic AV fistula creation on 02/24/2021. Unfortunately her AV fistula has thrombosed however her chronic kidney disease remains stable per patient report. She does have an upcoming appointment with her mine administrator supervisor. I discussed further treatment with the patient and explained that she will need a AV graft creation when determine by her mine administrator supervisor that she will require hemodialysis. Plan: Patient [...] on file Legal Sex Female 12:59 AM PAVING BLOCK CUTTER Gender Identity Not on file Sexual [...] 134.3 kg (296 lb) 05/03/2021 8:10 AM PAVING BLOCK CUTTER Height 170.2 cm (5' 7 ) 05/28/2023 3:04 PM CDT Body Mass Index 46.36 05/03/2021 8:10 AM PAVING BLOCK CUTTER Plan of Treatment Not on file Medical Devices Implanted Type Area Gas Appliance Servicer Helper Device Identifier Shelf Expiration Date Model / Serial / Lot Plate-03/19/2004 Implanted:03/19 (Quantity not on file) Plate Cervical-T horacic Spine Insurance MEDICARE SOLUTIONS MEDICARE SOLUTIONS MEDICARE SOLUTIONS Advance Directives For more information, please contact: [phone] Documents on File Type Date Recorded Patient Continuous Mining Machine Coal Miner Expl anation Power of Tool Room Attendant 01/13/2021 11:26 AM * Full Code (Latest Code Status on File) Date Activated Date Inactivated Comments 05/03/2021 10:25 AM 05/04/2021 4:42 AM * Full Code Date Activated Date Inactivated Comments 02/24/2021 8:02 PM 02/28/2021 12:11 AM Care Teams Development And Planning Engineer Relationship Specialty Start Date End Date Gaudencio Miranda MD [address] [place] [id number] PCP - General 07/25/16 Herberth Rodegrs MD [address] [facility] [address] [address] Surgeon Surgery 02/24/21
--- OUTSIDE RECORDS SUMMARY | 2024-04-11 13:15 | XMS_ITS | Clinical Summary ---
Author Organization [facility] Address [address] [place] [address] Care Team Providers Care Casting Machine Operator Name Role Phone Gaudencio Miranda MD Primary Care Provider Herberth Rodgers MD Unavailable [phone] Allergies Active Allergy Reactions Criticality Noted [...] pulmonary disease, unspecified COPD type ([facility]) Inhale 2 puffs every 4 (four) hours [...] (12/23/2020): Added automatically from request for surgery [id number] Assessment & Plan (12/27/2020 10:51 AM CDT): [...] care physician. Chronic kidney disease, stage V ([facility]) 2019 Assessment & Plan (03/28/2021 1:41 PM MENTAL HEALTH PROGRAM DIRECTOR): Impression: Patient with recent left brachial cephalic AV fistula creation on 02/24/2021. Unfortunately her AV fistula has thrombosed however her chronic kidney disease remains stable per patient report. She does have an upcoming appointment with her supervisor drawing. I discussed further treatment with the patient and explained that she will need a AV graft creation when determine by her supervisor drawing that she will require hemodialysis. Plan: Patient [...] Previous s urgery cancelled R/T possible CP. Can Filler ruled out heart disease, testing negative. Lung [...] on file Legal Sex Female 12:59 AM MENTAL HEALTH PROGRAM DIRECTOR Gender Identity Not on file Sexual Orientation [...] 134.3 kg (296 lb) 05/03/2021 8:10 AM MENTAL HEALTH PROGRAM DIRECTOR Height 170.2 cm (5' 7 ) 05/28/2023 3:04 PM CDT Body Mass Index 46.36 05/03/2021 8:10 AM MENTAL HEALTH PROGRAM DIRECTOR Plan of Treatment Health Maintenance Due Date [...] 11/17/2016, 01/12/2014 Medical Devices Implanted Type Area Senior Safety Support Manager Device Identifier Shelf Expiration Date Model / Serial / Lot Plate-03/19/2004 Implanted:03/19 (Quantity not on file) Plate Cervical-T horacic Spine Insurance MEDICARE SOLUTIONS MEDICARE [place]UT[place] [address] Advance Directives For more information, please contact: [phone] Documents on File Type Date Recorded Patient American History Teacher Expl anation Power of Ship'S Pilot 01/13/2021 11:26 AM * Full Code (Latest Code Status on File) Date Activated Date Inactivated Comments 05/03/2021 10:25 AM 05/04/2021 4:42 AM * Full Code Date Activated Date Inactivated Comments 02/24/2021 8:02 PM 02/28/2021 12:11 AM Care Teams Casting Machine Operator Relationship Specialty Start Date End Date Gaudencio Miranda MD [address] [place] [address] PCP - General 07/25/16 Herberth Rodgers MD [address] [facility] [address] [address] Surgeon Surgery 02/24/21
[2024-04-11 13:19] VITALS: BP 140/58; PULSE 67; RESP 16; TEMP 36.4; O2SAT 95
--- NOTE | 2024-04-11 14:09 | ED_ITS ---
HPI - Fall General Chief Complaint: Fall <Neliahue Bell APRN - Last Filed: 04/11/24 14:12> Stated Complaint: glf, hit head <Nelia Aimee Bell APRN - Last Filed: 04/11/24 14:12> Time Seen by Provider: 04/11/24 14:00 <Nelia LMorena Bell APRN - Last Filed: 04/11/24 14:12> Focused HPI: Patient is a 73-year-old female who presents to the ER following a fall at home. She uses a walker for ambulation. The walker started turning as she was getting into the shower. Patient fell through the shower door, hitting her head on the way out. Patient endorses lacerations to her left forearm. Her daughter believes she has last in her hair, groin, left forearm. Patient endorses back pain and headache. She reports she is not on blood thinners. Patient denies loss of consciousness. She reports she recently had a cat bite, went to Urgent Care, and has been treated with antibiotics. Pt denies any shortness of breath, chest pain, recent fevers, abdominal pain. GENERAL: Well-appearing, well-nourished, and in no acute distress. HEAD: Normocephalic, atraumatic. CHEST: Clear to auscultation. ?No respiratory distress. HEART: Regular rate and rhythm.? NEURO: ?Alert and oriented x3. Patient screened in triage and initial orders placed.? ?Additional care and disposition to be based upon?diagnostic testing and treatment. <Nelia Bell APRN - Last Filed: 04/11/24 14:12> Source: patient <Myrtle Ureña MD - Last Filed: 04/11/24 16:14> Mode of arrival: ambulatory <Myrtle Ureña MD - Last Filed: 04/11/24 16:14> Limitations: no limitations <Myrtle Ureña MD - Last Filed: 04/11/24 16:14> History of Present Illness HPI Narrative: AGREE WITH THE ABOVE <Myrtle Ureña MD - Last Filed: 04/11/24 16:14> Related Data Home Medications: Home Medications ?Medication ?Instructions ?Recorded ?Confirmed ?Last Taken ?Type calcium carbonate (Tums) 200 mg PO DAILY 06/05/22 03/17/24 Unknown History cholecalciferol (vitamin D3) 50 50 mcg PO DAILY 06/05/22 03/17/24 Unknown History mcg (2,000 unit) capsule fexofenadine 60 mg tablet (Antonina 60 mg PO DAILY 06/05/22 03/17/24 Unknown History Allergy) kzjxvherllxq-cstaiimd-ubnfzsv-folic 1 tablet PO DAILY 06/05/22 03/17/24 Unknown History acid 400 mcg-vit K1 20 mcg tablet (One-A-Day Women's 50 Plus) B6 1.7 mg-folic 400 mcg-B12 2.4 1 cap PO DAILY 01/01/23 03/17/24 Unknown History nur-qjcydz-qniqsmkiomex oral capsule (Neuriva Plus Brain Performance) <Nelia Bell APRN - Last Filed: 04/11/24 14:12> Allergies/Adverse Reactions: Allergies Allergy/AdvReac Type Severity Reaction Status Date / Time dobutamine Allergy Intermediate SEVERE Verified 04/11/24 13:06 PAIN IN THE HEAD latex Allergy Intermediate RASH Verified 04/11/24 13:06 aspirin Allergy Mild CHOKING Verified 04/11/24 13:06 FEELING , CHEST TIGHTNESS Sulfa (Sulfonamide Allergy Mild HIVES Verified 04/11/24 13:06 Antibiotics) peanut Allergy Unknown THROAT Verified 04/11/24 13:06 SWELLING <Nelia Bell APRN - Last Filed: 04/11/24 14:12> Review of Systems 2 Review of Systems: All systems reviewed & are unremarkable except as noted in HPI and below <Myrtle Ureña MD - Last Filed: 04/11/24 16:14> [facility] Past Medical History Medical History: Medical History Restless leg syndrome Secondary hyperparathyroidism, not elsewhere classified Chronic obstructive pulmonary disease Chronic respiratory failure with hypoxia, on home oxygen therapy Unspecified cirrhosis of liver Vitamin D deficiency, unspecified Pure hypercholesterolemia, unspecified Age-related osteoporosis without current pathological fracture Osteoarthritis of knees, bilateral Allergic rhinitis, unspecified Gastro-esophageal reflux disease without esophagitis Migraine, unspecified, not intractable, with status migrainosus Atherosclerosis of aorta Morbid obesity Essential tremor Primary generalized (osteo)arthritis Fibromyalgia Major depressive disorder, recurrent, in partial remission Hyperlipidemia, unspecified Hypothyroidism, unspecified Coagulation defect, unspecified Hepatic steatosis Chronic kidney disease, stage 4 (severe) Other intervertebral disc degeneration, lumbar region <Nelia Bell APRN - Last Filed: 04/11/24 14:12> Surgical History Surgical History: Surgical History History of partial hysterectomy History of cervical spinal surgery <Nelia Bell APRN - Last Filed: 04/11/24 14:12> Family History Family History: Family History Father Cancer Sibling Cancer Heart attack <Nelia Bell APRN - Last Filed: 04/11/24 14:12> Social History Social History: Social History Social History: Healthcare power of civil attorney: Arin Rahman, daughter. Code status: Full code. Smoking packs per day: 2 Smoking cigarettes per day: 40.0 Years smoked: 50 Smoking pack-years: 100.00 Smoking status: Former smoker Tobacco type: cigarettes Second hand tobacco smoke exposure: No Alcohol intake: never Substance use: never Substance use type: does not use Do You Feel Safe in your Home?: Yes Lack of Transportation: No Lack of Food: Never True Current Housing: I Have Housing Concerned About Future Housing: No Difficulty Paying Gas/Electric Bills: No Difficulty Paying for Meds: No Currently Unemployed: YES Education: High School Diploma/GED Difficulty w/ Childcare or Family Care: No Living arrangements: with family Occupation/Education: unemployed Spiritual care concerns: No <Nelia Bell APRN - Last Filed: 04/11/24 14:12> Exam 2 Narrative: GENERAL APPEARANCE: WELL-DEVELOPED, WELL-NOURISHED SKIN: NORMAL COLOR SKIN AVULSION LEFT FOREARM AND LEFT WRIST HEAD: NORMOCEPHALIC, NONTRAUMATIC EYES: CLEAR CONJUNCTIVA ENT: OROPHARYNX NORMAL, EARS NORMAL, NOSE NORMAL NECK: SUPPLE, NONTENDER CHEST AND RESPIRATORY: AIRWAY PATENT, NO RESPIRATORY DISTRESS, NO ACCESSORY MUSCLE USE HEART: REGULAR RATE/RHYTHM ABDOMEN: SOFT, NONTENDER, NO ORGANOMEGALY, QUIET BOWEL SOUNDS VASCULAR: NORMAL PERIPHERAL PULSES, NORMAL CAPILLARY REFILL. MUSCULOSKELETAL: NORMAL RANGE OF MOTION, NONTENDER BACK NEUROLOGIC: ALERT AND ORIENTED ?3, LAB ANALYST IS NORMAL TESTED, NO GROSS MOTOR DEFICIT <Myrtle Ureña MD - Last Filed: 04/11/24 16:14> Course Vital Signs Vital signs: Vital Signs Temperature 36.4 C 04/11/24 13:19 Pulse Rate 67 04/11/24 13:19 Respiratory Rate 16 04/11/24 13:19 Blood Pressure 140/58 L 04/11/24 13:19 Pulse Oximetry 95 04/11/24 13:19 Temperature 36.4 C 04/11/24 13:19 Pulse Rate 67 04/11/24 13:19 Respiratory Rate 16 04/11/24 13:19 Blood Pressure 140/58 L 04/11/24 13:19 Pulse Oximetry 95 04/11/24 13:19 <Nelia Bell APRN - Last Filed: 04/11/24 14:12> Vital Signs Temperature 36.4 C 04/11/24 13:19 Pulse Rate 67 04/11/24 13:19 Respiratory Rate 16 04/11/24 13:19 Blood Pressure 140/58 L 04/11/24 13:19 Pulse Oximetry 95 04/11/24 13:19 Temperature 36.4 C 04/11/24 13:19 Pulse Rate 67 04/11/24 13:19 Respiratory Rate 16 04/11/24 13:19 Blood Pressure 140/58 L 04/11/24 13:19 Pulse Oximetry 95 04/11/24 13:19 <Myrtle Ureña MD - Last Filed: 04/11/24 16:14> MDM - Fall MDM Narrative Medical decision making narrative: PATIENT WAS USING HER WALKER, TIPPED OVER AND FELL, NO LOSS OF CONSCIOUSNESS VITAL SIGNS ARE STABLE PHYSICAL EXAMINATION SHOWING SKIN AVULSION LEFT FOREARM AND LEFT WRIST, PATIENT DENIES ANY PAIN NEW AFTER THE FALL COMPARED TO THE PAST. STERI-STRIPS TETANUS SHOT CT HEAD AND CERVICAL SPINE SHOWED NO ACUTE ABNORMALITIES DISCHARGED HOME <Myrtle Ureña MD - Last Filed: 04/11/24 16:14> Differential Diagnosis Differential diagnosis: Likely other ( ABOVE) <Myrtle Ureña MD - Last Filed: 04/11/24 16:14> Medical Records Attestation: I reviewed the patient's medical records. <Myrtle Ureña MD - Last Filed: 04/11/24 16:14> Lab Data Attestation: I reviewed the patient's lab results. <Myrtle Ureña MD - Last Filed: 04/11/24 16:14> Result diagrams: 04/11/24 14:06 04/11/24 14:06 <Nelia Bell APRN - Last Filed: 04/11/24 14:12> Labs: Lab Results 04/11/24 Range/Units 14:06 WBC 5.2 (4.5-10.0) K/mm3 RBC 4.08 L (4.2-5.4) M/mm3 Hgb 12.8 (12.0-15.0) g/dL Hct 39.8 (37.0-47.0) % MCV 97.5 (80-100) fl MCH 31.4 (26-34) pg MCHC 32.2 (32-36) g/dl RDW 13.7 (11.5-14.5) % Plt Count 158 (150-375) k/mm3 MPV 10.8 H (7.4-10.4) fl Immature Gran % (Auto) Not Reportable Neut % (Auto) Not Reportable Lymph % (Auto) Not Reportable Marshall % (Auto) Not Reportable Eos % (Auto) Not Reportable Baso % (Auto) Not Reportable Lymph # (Auto) Not Reportable Marshall # (Auto) Not Reportable Eos # (Auto) Not Reportable Baso # (Auto) Not Reportable Abs Immat Gran (auto) Not Reportable Absolute Neuts (auto) Not Reportable Absolute Nucleated RBC Not Reportable Total Counted 100 Neutrophils % (Manual) 53 (46-73) % Band Neutrophils % 1 (0-6) % Lymphocytes % (Manual) 23.0 (18-44) % Monocytes % (Manual) 19 H (3-9) % Eosinophils % (Manual) 4 (0-4) % Nucleated RBC % Not Reportable Abs Neuts (Manual) 2.80 (1.7-7.2) K/mm3 Abs Lymphs (Manual) 1.19 (1.1-4.5) K/mm3 Abs Monocytes (Manual) 0.98 H (0.1-0.90) K/mm3 Absolute Eos (Manual) 0.20 (0.02-0.50) K/mm3 Atypical Lymphocytes Present Platelet Estimate Adequate (Adequate) Hypochromasia 1+ Schistocytes None seen PT 14.4 (11.1-14.7) Seconds INR 1.1 APTT 36.4 (22.3-36.8) Seconds Sodium 137 (137-145) mmol/L Potassium 3.9 (3.4-5.0) mmol/L Chloride 99 (98-107) mmol/L Carbon Dioxide 32 H (22-30) mmol/L Anion Gap 6 (4-12) mmol/L BUN 32 H D (7-17) mg/dL Creatinine 1.60 H (0.7-1.0) mg/dL Estim Creat Clear Calc Not Reportable Estimated GFR 31 L (59 - ) Glucose 100 (65-110) mg/dL Calcium 10.2 (8.4-10.2) mg/dL Total Bilirubin 0.7 (0.2-1.3) mg/dL AST 76 H (14-36) U/L ALT 55 H (6-35) U/L Alkaline Phosphatase 93 (38-126) U/L Total Protein 7.0 (6.3-8.2) g/dL Albumin 3.4 L (3.5-5.1) g/dL Influenza A (RT-PCR) Negative (Negative) Influenza B (RT-PCR) Negative (Negative) RSV (RT-PCR) Negative (Negative) SARS-CoV-2 RNA (RT-PCR) Negative (Negative) <Nelia Bell, RIDES SUPERVISOR - Last Filed: 04/11/24 14:12> Lab Results 04/11/24 Range/Units 14:06 WBC 5.2 (4.5-10.0) K/mm3 RBC 4.08 L (4.2-5.4) M/mm3 Hgb 12.8 (12.0-15.0) g/dL Hct 39.8 (37.0-47.0) % MCV 97.5 (80-100) fl MCH 31.4 (26-34) pg MCHC 32.2 (32-36) g/dl RDW 13.7 (11.5-14.5) % Plt Count 158 (150-375) k/mm3 MPV 10.8 H (7.4-10.4) fl Immature Gran % (Auto) Not Reportable Neut % (Auto) Not Reportable Lymph % (Auto) Not Reportable Marshall % (Auto) Not Reportable Eos % (Auto) Not Reportable Baso % (Auto) Not Reportable Lymph # (Auto) Not Reportable Marshall # (Auto) Not Reportable Eos # (Auto) Not Reportable Baso # (Auto) Not Reportable Abs Immat Gran (auto) Not Reportable Absolute Neuts (auto) Not Reportable Absolute Nucleated RBC Not Reportable Total Counted 100 Neutrophils % (Manual) 53 (46-73) % Band Neutrophils % 1 (0-6) % Lymphocytes % (Manual) 23.0 (18-44) % Monocytes % (Manual) 19 H (3-9) % Eosinophils % (Manual) 4 (0-4) % Nucleated RBC % Not Reportable Abs Neuts (Manual) 2.80 (1.7-7.2) K/mm3 Abs Lymphs (Manual) 1.19 (1.1-4.5) K/mm3 Abs Monocytes (Manual) 0.98 H (0.1-0.90) K/mm3 Absolute Eos (Manual) 0.20 (0.02-0.50) K/mm3 Atypical Lymphocytes Present Platelet Estimate Adequate (Adequate) Hypochromasia 1+ Schistocytes None seen PT 14.4 (11.1-14.7) Seconds INR 1.1 APTT 36.4 (22.3-36.8) Seconds Sodium 137 (137-145) mmol/L Potassium 3.9 (3.4-5.0) mmol/L Chloride 99 (98-107) mmol/L Carbon Dioxide 32 H (22-30) mmol/L Anion Gap 6 (4-12) mmol/L BUN 32 H D (7-17) mg/dL Creatinine 1.60 H (0.7-1.0) mg/dL Estim Creat Clear Calc Not Reportable Estimated GFR 31 L (59 - ) Glucose 100 (65-110) mg/dL Calcium 10.2 (8.4-10.2) mg/dL Total Bilirubin 0.7 (0.2-1.3) mg/dL AST 76 H (14-36) U/L ALT 55 H (6-35) U/L Alkaline Phosphatase 93 (38-126) U/L Total Protein 7.0 (6.3-8.2) g/dL Albumin 3.4 L (3.5-5.1) g/dL Influenza A (RT-PCR) Negative (Negative) Influenza B (RT-PCR) Negative (Negative) RSV (RT-PCR) Negative (Negative) SARS-CoV-2 RNA (RT-PCR) Negative (Negative) <Myrtle Ureña MD - Last Filed: 04/11/24 16:14> Imaging Data Radiologist's impression: Impressions Head CT 04/11/24 14:59 IMPRESSION: 1. Normal aging brain with no fracture or acute intracranial process. Cervical Spine CT 04/11/24 15:00 IMPRESSION: 1. No fracture. 2. Mild cervical spondylosis. 3. Anterior fusion procedure from C4 to C7. Thoracic/Lumbar Spine CT 04/11/24 15:03 IMPRESSION: 1. No fracture. 2. Mild thoracic spondylosis and severe lumbar spondylosis. 3. Anterior fusion procedure at L4-L5. Forearm X-Ray 04/11/24 15:17 IMPRESSION: 1. No fracture. Hip/Pelvis X-Ray 04/11/24 15:18 IMPRESSION: 1. No acute osseous abnormality. 2. Moderate to severe lower lumbar spondylosis with instrumented L5-S1 anterior spinal fusion. 3. Mild bilateral hip and sacroiliac osteoarthritis. <Myrtle Ureña MD - Last Filed: 04/11/24 16:14> Discharge Plan Discharge Clinical Impression: Fall, Avulsion of skin <Nelia Bell APRN - Last Filed: 04/11/24 14:12> Patient Disposition: Home, Self-Care <Nelia Bell APRN - Last Filed: 04/11/24 14:12> Condition: Stable <Nelia Bell APRN - Last Filed: 04/11/24 14:12> Instructions: Fall Prevention for Older Adults (ED), Skin Avulsion (ED) <Nelia Bell APRN - Last Filed: 04/11/24 14:12> Additional Instructions: RETURN IF SYMPTOMS ARE WORSENING , CALL YOUR FAMILY PHYSICIAN FOR APPOINTMENT, TAKE TYLENOL NEEDED FOR ACHES AND PAIN, CONTINUE HOME MEDICATIONS. <Nelia Bell APRN - Last Filed: 04/11/24 14:12> Patient Language: Greenlandic <Nelia Bell APRN - Last Filed: 04/11/24 14:12> Prescriptions: No Action amoxicillin-pot clavulanate 875-125 mg tablet 1 tablet PO Q12H 10 Days Qty: 20 0RF cholecalciferol (vitamin D3) 50 mcg (2,000 unit) capsule 50 mcg PO DAILY One-A-Day Women's 50 Plus 400-20 mcg tablet 1 tablet PO DAILY fexofenadine [Antonina Allergy] 60 mg tablet 60 mg PO DAILY Rx Instructions: 1/2 tablet BID calcium carbonate [Tums] 200 mg calcium (500 mg) tablet,chewable 200 mg PO DAILY Neuriva Plus Brain Performance 1.7 mg-400 mcg- 2.4 mcg capsule 1 cap PO DAILY levothyroxine 200 mcg tablet 200 mcg PO DAILY Qty: 100 1RF ropinirole 1 mg tablet 1 mg PO QHS Qty: 90 1RF calcitriol 0.25 mcg capsule 0.25 mcg PO 3XW Qty: 45 3RF Rx Instructions: administer after dialysis on dialysis days M-W-FR duloxetine 60 mg capsule,delayed release(DR/EC) 60 mg PO DAILY Qty: 90 1RF furosemide 40 mg tablet 40 mg PO QAM Qty: 90 1RF pregabalin 200 mg capsule 200 mg PO BID Qty: 180 0RF hydrocodone-acetaminophen 5-325 mg tablet 1 tablet PO Q6H PRN (Reason: pain) Qty: 120 0RF rosuvastatin 20 mg tablet 20 mg PO DAILY Qty: 90 1RF propranolol 60 mg tablet 60 mg PO Q12H Qty: 180 1RF primidone 50 mg tablet 50 mg PO BID Qty: 180 1RF spironolactone 50 mg tablet 50 mg PO DAILY Qty: 90 1RF <Nelia Bell APRN - Last Filed: 04/11/24 14:12> Follow-up/Referrals: Gaudencio Miranda MD [Primary Care Provider] - <Nelia Bell APRN - Last Filed: 04/11/24 14:12>
[2024-04-11 14:32] LABS: Alanine Aminotransferase 55 U/L (6-35); Albumin Level 3.4 g/dL (3.5-5.1); Alkaline Phosphatase 93 U/L (38-126); Anion Gap 6 mmol/L (4-12); Aspartate Amino Transferase 76 U/L (14-36); Bilirubin,Total 0.7 mg/dL (0.2-1.3); Blood Urea Nitrogen 32 mg/dL (7-17); Calcium 10.2 mg/dL (8.4-10.2); Carbon Dioxide 32 mmol/L (22-30); Chloride 99 mmol/L (98-107); Estimated Glomerular Filt Rate 31; Glucose 100 mg/dL (65-110); INR 1.1; Potassium 3.9 mmol/L (3.4-5.0); Prothrombin Time 14.4 Seconds (11.1-14.7); Sodium 137 mmol/L (137-145)
[2024-04-11 14:33] LABS: Partial Thromboplastin Time 36.4 Seconds (22.3-36.8)
[2024-04-11 14:36] LABS: Hematocrit 39.8 % (37.0-47.0); Hemoglobin 12.8 g/dL (12.0-15.0); Mean Corpuscular HGB Conc 32.2 g/dl (32-36); Mean Corpuscular Hemoglobin 31.4 pg (26-34); Mean Corpuscular Volume 97.5 fl (80-100); Mean Platelet Volume 10.8 fl (7.4-10.4); Platelet Count Result 158 k/mm3 (150-375); Red Blood Count 4.08 M/mm3 (4.2-5.4); Red Cell Distribution Width 13.7 % (11.5-14.5); White Blood Count 5.2 K/mm3 (4.5-10.0)
[2024-04-11 14:59] LABS: Influenza A QL RT-PCR Negative (Negative); Influenza B QL RT-PCR Negative (Negative); RSV RNA, RT-PCR Negative (Negative); SARS-CoV-2 RNA PCR Negative (Negative)
[2024-04-11 15:17] LABS: Band Neutrophils Percent 1 % (0-6); Eosinophils Percent Manual 4 % (0-4); Lymphocytes Absolute Manual 1.19 K/mm3 (1.1-4.5); Monocytes Absolute Manual 0.98 K/mm3 (0.1-0.90); Monocytes Percent Manual 19 % (3-9); Neutrophils Percent Manual 53 % (46-73); Total Cells Counted 100
[2024-04-11 15:18] LABS: Hypochromasia 1+; Platelet Estimate Adequate (Adequate); Schistocytes None Seen
[2024-04-11 15:20] LABS: Atypical Lymphocytes Present
[2024-04-11] MEDS: TETANUS,DIPHTHERIA,AC PERTUSSIS ADULT (0.5 ML) BOOSTRIX IM (15:40)
--- OUTSIDE RECORDS SUMMARY | 2024-04-11 16:08 | XMS_ITS | Clinical Summary ---
Author Organization [facility] Address [address] [place] [address] Care Team Providers Care Civilian Technician Name Role Phone Gaudencio Miranda MD Primary Care Provider [phone] Herberth Rodgers MD Unavailable [phone] Allergies Active Allergy Reactions Criticality Noted [...] pulmonary disease, unspecified COPD type ([facility]) Inhale 2 puffs every 4 [...] (12/23/2020): Added automatically from request for surgery [id number] Assessment & Plan (12/27/2020 10:51 AM CDT): [...] care physician. Chronic kidney disease, stage V ([facility]) 2019 Assessment & Plan (03/28/2021 1:41 PM CLOTH EXAMINER HAND): Impression: Patient with recent left brachial cephalic AV fistula creation on 02/24/2021. Unfortunately her AV fistula has thrombosed however her chronic kidney disease remains stable per patient report. She does have an upcoming appointment with her salon leader. I discussed further treatment with the patient and explained that she will need a AV graft creation when determine by her salon leader that she will require hemodialysis. Plan: Patient [...] Previous s urgery cancelled R/T possible CP. New Client Banking Services Clerk ruled out heart disease, testing negative. Lung [...] on file Legal Sex Female 12:59 AM CLOTH EXAMINER HAND Gender Identity Not on file Sexual Orientation [...] 134.3 kg (296 lb) 05/03/2021 8:10 AM CLOTH EXAMINER HAND Height 170.2 cm (5' 7 ) 05/28/2023 3:04 PM CDT Body Mass Index 46.36 05/03/2021 8:10 AM CLOTH EXAMINER HAND Plan of Treatment Health Maintenance Due Date [...] 11/17/2016, 01/12/2014 Medical Devices Implanted Type Area Coiled Tubing Operator Device Identifier Shelf Expiration Date Model / Serial / Lot Plate-03/19/2004 Implanted:03/19 (Quantity not on file) Plate Cervical-T horacic Spine Insurance MEDICARE SOLUTIONS MEDICARE SOLUTIONS MEDICARE SOLUTIONS Advance Directives For more information, please contact: [phone] Documents on File Type Date Recorded Patient Manager Art Expl anation Power of Machinist Mate 01/13/2021 11:26 AM * Full Code (Latest Code Status on File) Date Activated Date Inactivated Comments 05/03/2021 10:25 AM 05/04/2021 4:42 AM * Full Code Date Activated Date Inactivated Comments 02/24/2021 8:02 PM 02/28/2021 12:11 AM Care Teams Civilian Technician Relationship Specialty Start Date End Date Gaudencio Miranda MD [address] [place] [address] PCP - General 07/25/16 Herberth Rodgers MD [address] [facility] [address] [address] Surgeon Surgery 02/24/21
--- OUTSIDE RECORDS SUMMARY | 2024-04-11 16:08 | XMS_ITS | Clinical Summary ---
Author Organization [facility] Address [address] [place] [address] Phone Care Team Providers Care Practice Managers Name Role Phone Gaudencio Miranda MD Primary Care Provider [phone] Allergies Active Allergy Reactions Criticality Noted Date [...] Highest Risk Completed 12/15/2016, 01/12/2014 Care Teams Practice Managers Relationship Specialty Start Date End Date Gaudencio Miranda MD [address] [place] [address] [id number] PCP - General Internal Medicine 01/14/19
--- OUTSIDE RECORDS SUMMARY | 2024-04-11 16:08 | XMS_ITS | Referral Summary ---
Author Organization [facility] Address [address] [place] [address] Care Team Providers Care Welder Railcar Mechanic Name Role Phone Gaudencio Miranda MD Primary Care Provider [phone] Herberth Rodgers MD Unavailable [phone] Allergies Active Allergy Reactions Criticality Noted [...] ns:Chronic obstructive pulmonary disease, unspecified COPD type ([facility]) Inhale 2 puffs every 4 (four) [...] (12/23/2020): Added automatically from request for surgery [id number] Assessment & Plan (12/27/2020 10:51 AM CDT): [...] care physician. Chronic kidney disease, stage V ([facility]) 2019 Assessment & Plan (03/28/2021 1:41 PM SUPERVISING FIRE MARSHAL): Impression: Patient with recent left brachial cephalic AV fistula creation on 02/24/2021. Unfortunately her AV fistula has thrombosed however her chronic kidney disease remains stable per patient report. She does have an upcoming appointment with her clinical quality assurance specialist. I discussed further treatment with the patient and explained that she will need a AV graft creation when determine by her clinical quality assurance specialist that she will require hemodialysis. Plan: Patient [...] on file Legal Sex Female 12:59 AM SUPERVISING FIRE MARSHAL Gender Identity Not on file Sexual Orientation [...] 134.3 kg (296 lb) 05/03/2021 8:10 AM SUPERVISING FIRE MARSHAL Height 170.2 cm (5' 7 ) 05/28/2023 3:04 PM CDT Body Mass Index 46.36 05/03/2021 8:10 AM SUPERVISING FIRE MARSHAL Plan of Treatment Not on file Medical Devices Implanted Type Area Pourer Crane Ladle Device Identifier Shelf Expiration Date Model / Serial / Lot Plate-03/19/2004 Implanted:03/19 (Quantity not on file) Plate Cervical-T horacic Spine Insurance MEDICARE SOLUTIONS MEDICARE SOLUTIONS MEDICARE SOLUTIONS Advance Directives For more information, please contact: [phone] Documents on File Type Date Recorded Patient Concrete Mixer Operator Expl anation Power of [employer] Consultant 01/13/2021 11:26 AM * Full Code (Latest Code Status on File) Date Activated Date Inactivated Comments 05/03/2021 10:25 AM 05/04/2021 4:42 AM * Full Code Date Activated Date Inactivated Comments 02/24/2021 8:02 PM 02/28/2021 12:11 AM Care Teams Welder Railcar Mechanic Relationship Specialty Start Date End Date Gaudencio Miranda MD [address] [place] [id number] PCP - General 07/25/16 Herberth Rodgers MD [address] [facility] [address] [address] Surgeon Surgery 02/24/21
--- OUTSIDE RECORDS SUMMARY | 2024-04-11 16:08 | XMS_ITS | Clinical Summary ---
Author Organization [facility] Address [address] [place] [address]. [place], [place] [id number] [place] [id number] Care Team Providers Care Orchid Worker Name Role Phone Unavailable Primary Care Provider [...]
[2024-04-11 16:12] VITALS: BP 155/68; PULSE 63; RESP 18; O2SAT 96
== END 2024-04-11 16:14 | disposition home or self-care (01) ==
LOC: ANHED 16:05
PROVIDERS: Registered Nurse; Emergency Provider Emergency Medicine; PCP Family Medicine
DX: S61.502A Unspecified open wound of left wrist, initial encounter (principal); S51.802A Unspecified open wound of left forearm, initial encounter; Z20.822 Contact with and (suspected) exposure to COVID-19; Z23 Encounter for immunization; J44.9 Chronic obstructive pulmonary disease, unspecified; J96.11 Chronic respiratory failure with hypoxia; Z99.81 Dependence on supplemental oxygen; I70.0 Atherosclerosis of aorta; E21.1 Secondary hyperparathyroidism, not elsewhere classified; E78.00 Pure hypercholesterolemia, unspecified; E66.01 Morbid (severe) obesity due to excess calories; E03.9 Hypothyroidism, unspecified; E55.9 Vitamin D deficiency, unspecified; K74.60 Unspecified cirrhosis of liver; N18.4 Chronic kidney disease, stage 4 (severe); G25.81 Restless legs syndrome; K21.9 Gastro-esophageal reflux disease without esophagitis; M81.0 Age-related osteoporosis without current pathological fracture; M79.7 Fibromyalgia; Z87.891 Personal history of nicotine dependence; Z90.711 Acquired absence of uterus with remaining cervical stump; Z98.1 Arthrodesis status; M46.1 Sacroiliitis, not elsewhere classified; M16.0 Bilateral primary osteoarthritis of hip; M47.816 Spondylosis without myelopathy or radiculopathy, lumbar region; M47.814 Spondylosis without myelopathy or radiculopathy, thoracic region; M47.812 Spondylosis without myelopathy or radiculopathy, cervical region; W01.118A Fall on same level from slipping, tripping and stumbling with subsequent striking against other sharp object, initial encounter
CPT/HCPCS: 36415; 70450; 72125; 72128; 72131; 73090; 73521; 80053; 85025; 85610; 85730; 87637; 90471; 90715; 99284